=== PATIENT | male | born 1965 | race Caucasian/White ===

== ENCOUNTER 2019-01-27 23:28 | Inpatient (IN) | payer MEDICARE, SELFPAY ==
[2019-01-27 23:29] VITALS: BP 92/56; PULSE 122; RESP 20; TEMP 37.8; O2SAT 95; BMI 14.1
--- NOTE | 2019-01-27 23:38 | XR_ITS ---
XR chest portable HISTORY: ITS.REASON: fever, low o2 ORDERING PHYSICIAN: Aldo Benitez MD PATIENT AGE: 53 years COMPARISON: None available FINDINGS: The lung brown are well expanded. There is a somewhat prominent right hilum is a patchy ill-defined opacity in the right lower lobe suggestive of a pneumonic infiltrate. Without old films for comparison. Hilar mass and/or adenopathy is a possibility with postobstructive pneumonitis. There is minimal blunting of the right costophrenic angle and a small pleural effusion is possible. The right upper lung field and left lung field are clear. Overall cardiac size is normal. IMPRESSION: Suspect right lower lobe pneumonia with prominent right hilum as described and consider follow-up CT scan chest for better evaluation.
[2019-01-27 23:47] LABS: Basophils % 0.3 % (0.1-2.0); Eosinophils # 0.2 K/mm3 (0.0-0.4); Eosinophils % 1.2 % (0.1-12.0); Hematocrit 30.2 % (42.0-52.0); Hemoglobin 10.4 g/dL (14.1-18.0); Lymphocytes # 1.7 K/mm3 (0.7-4.5); Lymphocytes % 13.5 % (10-50); Mean Corpuscular HGB Conc 34.4 g/dL (31.8-35.4); Mean Corpuscular Hemoglobin 32.1 pg (27.0-31.2); Mean Corpuscular Volume 93.4 fl (80-94); Mean Platelet Volume 7.7 fl (7.4-10.4); Monocytes % 8.1 % (1.7-9.3); Neutrophils # 9.7 K/mm3 (1.8-7.8); Neutrophils % 76.9 % (37.0-80.0); Platelet Count 433 K/mm3 (142-424); Red Blood Count 3.23 M/mm3 (4.60-6.20); Red Cell Distribution Width 15.4 % (11.5-17.5); White Blood Count 12.7 K/mm3 (4.8-10.8)
--- NOTE | 2019-01-27 23:48 | PC.NURSE ---
Pt arrived per EMS with 18g IV in his Left hand, 2L oxygen via nasal cannula, he received 1,000ml of NS per EMS, and was given 650 Tylenol at the assisted. Pt has previous anoxic brain injury and can not make his needs known.
[2019-01-28] VITALS (35 sets, daily range): BP systolic 80–110; BP diastolic 42–76; PULSE 88–130; RESP 18–24; TEMP 36–38.5; O2SAT 93–100; BMI 16.2
[2019-01-28 00:03] LABS: Lactic Acid 1.4 mmol/L (0.4-2.0)
[2019-01-28 00:06] LABS: Troponin I < 0.02 ng/ml (0.00-0.06)
[2019-01-28 00:07] LABS: Alanine Aminotransferase 17 U/L (12-78); Albumin Level 2.5 gm/dL (3.4-5.0); Albumin/Globulin Ratio 0.7 (1.1-1.8); Alkaline Phosphatase 84 U/L (46-116); Anion Gap 12.6 mEq/L (5-15); Aspartate Amino Transferase 16 U/L (15-37); Bilirubin,Total 0.4 mg/dL (0.2-1.0); Blood Urea Nitrogen 13 mg/dL (7-18); C-Reactive Protein 8.2 mg/L (0.0-0.9); Calcium 8.2 mg/dL (8.5-10.1); Carbon Dioxide 26 mmol/L (21.0-32.0); Chloride 102 mmol/L (98-107); Creatinine Clearance Estimated 106 mL/min (50-200); Creatinine,Serum 0.56 mg/dL (0.70-1.30); Estimated Glomerular Filt Rate 152 ml/min (>60); GFR (African American) 184 ML/MIN (>60); Globulin 3.7 gm/dl (1.3-3.2); Glucose 125 mg/dL (74-106); Potassium 3.6 mmoL/L (3.5-5.1); Sodium 137 mmol/L (136-145); Total Protein,Serum 6.2 gm/dL (6.4-8.2)
--- NOTE | 2019-01-28 00:13 | PC.NURSE ---
Gtube verified with auscultation and aspiration of gastric contents
[2019-01-28 00:18] LABS: Microscopic, Urine URINE MICROSCOPIC (MICROSCOPIC)
[2019-01-28 00:23] LABS: ABG Base Excess 1.6 mmol/L (-2.4-2.3); ABG HCO3 27.6 mmhg (22.0-26.0); ABG Oxygen Saturation 94 % (90-100); ABG PH 7.33 mmol/L (7.35-7.45); ABG PO2 82.8 mmhg (80-100); ABG TCO2 29.3 mmhg (23-27); Allen's Test Y; Oxygen 2 %; Source R/R
--- NOTE | 2019-01-28 00:23 | HMH.EDFEV ---
ED Disposition Clinical Impression: HCAP (healthcare-associated pneumonia), Severe sepsis, Septic shock, Low body mass index (BMI) Disposition: Admitted As Inpatient Condition on Discharge: Critical Referrals: Shiv Hu MD [Primary Care Provider] - - Critical Care Critical Care Time: Yes Attestation: On 01/27/19, the high probability of a clinically significant, sudden or life threatening deterioration of the following system(s) required my full and direct attention, intervention and personal management. The time I documented below is in addition to time spent performing reported procedures but includes the following listed in this critical care notation. Total Critical Care Time: 90 Vital system(s) involved:: Shock (Septic) My critical care processes included: Assessment & monitoring of V/S, Data Review/Interpretation, Coordinating Care, Medication Orders and management, Documentation Medical Decision Making - Medical Records Medical records reviewed: Yes: I reviewed the patient's medical records. - Gene Inquiry Pt receiving controlled substance: No Vital Signs: 01/27/19 23:29 01/28/19 00:32 01/28/19 01:00 Temperature 100.0 F H Temperature Source Rectal Pulse Rate [Right Brachial] 122 H 120 H 124 H Respiratory Rate 20 24 24 Blood Pressure [Right Arm] 92/56 L 98/55 L 97/55 L Blood Pressure Mean [Right Arm] 68 69 69 Blood Pressure Source [Right Arm] Automatic Cuff Blood Pressure Position [Right Arm] Sitting 02 Sat by Pulse Oximetry 95 93 L 93 L Oxygen Delivery Method Nasal Cannula Nasal Cannula Nasal Cannula Oxygen Flow Rate (LPM) 2 2 2 01/28/19 01:25 01/28/19 01:28 01/28/19 01:58 Temperature 98.1 F Temperature Source Rectal Pulse Rate [Right Brachial] 100 H 105 H 102 H Respiratory Rate 24 20 20 Blood Pressure [Right Arm] 80/46 L 82/43 L 84/55 L Blood Pressure Mean [Right Arm] 57 56 64 Blood Pressure Source [Right Arm] Blood Pressure Position [Right Arm] 02 Sat by Pulse Oximetry 97 95 98 Oxygen Delivery Method Nasal Cannula Nasal Cannula Oxygen Flow Rate (LPM) 2 2 01/28/19 02:27 Temperature Temperature Source Pulse Rate [Right Brachial] 100 H Respiratory Rate 20 Blood Pressure [Right Arm] 86/57 L Blood Pressure Mean [Right Arm] 66 Blood Pressure Source [Right Arm] Blood Pressure Position [Right Arm] 02 Sat by Pulse Oximetry 100 Oxygen Delivery Method Nasal Cannula Oxygen Flow Rate (LPM) 2 - Lab Data Lab results reviewed: Yes: I reviewed the patient's lab results. Lab Results 01/27/19 23:38: WBC 12.7 H, RBC 3.23 L, Hgb 10.4 L, Hct 30.2 L, MCV 93.4, MCH 32.1 H, MCHC 34.4, RDW 15.4, Plt Count 433 H, MPV 7.7, Neut % (Auto) 76.9, Lymph % (Auto) 13.5, Mcleod % (Auto) 8.1, Eos % (Auto) 1.2, Baso % (Auto) 0.3, Neut # (Auto) 9.7 H, Lymph # (Auto) 1.7, Mcleod # (Auto) 1.0, Eos # (Auto) 0.2, Baso # (Auto) 0.0 01/27/19 23:38: Sodium 137, Potassium 3.6, Chloride 102, Carbon Dioxide 26, Anion Gap 12.6, BUN 13, Creatinine 0.56 L, Estimated Creat Clear 106, Estimated GFR 152, Est GFR ( Amer) 184, Glucose 125 H, Calcium 8.2 L, Total Bilirubin 0.4, AST 16, ALT 17, Alkaline Phosphatase 84, Troponin I < 0.02, C-Reactive Protein 8.2 H, Total Protein 6.2 L, Albumin 2.5 L, Globulin 3.7 H, Albumin/Globulin Ratio 0.7 L 01/27/19 23:38: Lactate 1.4 01/27/19 23:38: ESR 48 H 01/28/19 00:09: Urine Color Yellow, Urine Appearance Clear, Urine pH 8.5, Ur Specific [place] 1.010, Urine Protein Negative, Urine Glucose (UA) Negative, Urine Ketones Negative, Urine Blood Negative, Urine Nitrate Negative, Urine Bilirubin Negative, Urine Urobilinogen 0.2, Ur Leukocyte Esterase Negative, Urine WBC 3-5, Amorphous Sediment Trace 01/28/19 00:22: Specimen Source R/r, O2 % 2, ABG pH 7.33 L, ABG pCO2 54.2 H, ABG pO2 82.8, ABG HCO3 27.6 H, ABG Total CO2 29.3 H, ABG O2 Saturation 94, ABG Base Excess 1.6, Syed Test Y Result diagrams: 01/27/19 23:38 01/27/19 23:38 Orders (Tests/Meds): ED MEDICATIONS Gener
[2019-01-28 00:24] LABS: ABG PCO2 54.2 mmhg (35.0-45.0)
[2019-01-28 00:27] LABS: Appearance,Urine CLEAR (Clear); Bilirubin,Urine Negative (Negative); Blood, Urine Negative (Negative); Color,Urine YELLOW (Yellow); Glucose,Urine (UA) Negative (Negative); Ketones,Urine Negative (Negative); Leukocyte Esterase,Urine Negative (Negative); Nitrate,Urine Negative (Negative); PH,Urine 8.5 (5.0-8.5); Protein,Urine Negative (Negative); Urobilinogen,Urine 0.2 EU/dl (0.2)
[2019-01-28 00:32] LABS: Amorphous Sediment,Urine Trace /lpf
[2019-01-28 00:34] LABS: Erythrocyte Sedimentation Rate 48 mm/hr (0-20)
--- NOTE | 2019-01-28 01:29 | PC.NURSE ---
Sepsis bolus started at this time
--- NOTE | 2019-01-28 01:56 | PC.NURSE ---
Addendum entered by Kortney Agarwal RN 01/28/19 02:00: Time of notification to MD at 0128 Original Note: MD notified of pt triggering for sepsis bolus, MD gave verbal order for bolus.
--- NOTE | 2019-01-28 02:30 | PC.NURSE ---
Bolus completed at this time
--- NOTE | 2019-01-28 02:40 | PC.NURSE ---
Addendum entered by Kortney Agarwal RN 01/28/19 02:41: Suggested vasopressors per sepsis protocol. Original Note: M notified of persistent hypotension, on phone with juanjo at this time
--- NOTE | 2019-01-28 02:53 | PC.NURSE ---
stated he did not wish to administered vasopressors to pt
--- NOTE | 2019-01-28 03:38 | PC.NURSE ---
ARRIVED TO FLOOR, PER STRETCHER, FROM ED @[phone]
--- NOTE | 2019-01-28 07:00 | PC.NURSE ---
PT SLEPT MOST OF SHIFT SINCE ADMISSION TO FLOOR. IV SECURE AND PATENT, INFUSING NS@100/HR. NO C/O PAIN OR DISCOMFORT. PT SPEAKS VERY LITTLE, AND IS SOFT SPOKEN. ZAMUDIO CATH SECURE AND PATENT. NPO, PT HAS G-TUBE. NO A.M. LABS TODAY. RESPIRATIONS EVEN AND UNLABORED ON 2L/NC. BREATH SOUNDS DIMINISHED BILATERAL BASES. STABLE. WILL CONTINUE TO MONITOR. REPORT TO BE GIVEN TO ONCOMING NURSE.
--- NOTE | 2019-01-28 07:25 | PC.NURSE ---
REPORTED TO Stewart GREY
--- NOTE | 2019-01-28 08:38 | HMH.HP ---
*Admission Date: 01/28/19 *Chief complaint: Fever and tachycardia *History of present illness: Mr. Fountain is a chronically ill 53-year-old gentleman with weakness, debility, G-tube dependence, seizure disorder who presented to the hospital yesterday from [facility] due to elevated temperature, tachycardia, agitation. At time of assessment in the ER patient was found to have a pneumonia. Heart rate and respiratory rate along with presumed infection and leukocytosis greater than 12,000 met criteria for sepsis. Admitted and initiated on broad-spectrum antibiotics. On interview this morning patient is pleasant but confused about his current location and time. Discussion with nurse at [facility] elicited that the patient was more altered yesterday and agitated giving them concern for possible infection. This led to his transfer. They denied any trauma or falls yesterday however he has been very weak and unsteady with falls since being at the [facility]. Patient is reliant on tube feeds and gets most of his Medications through his G-tube. They do not give him medications by mouth. Denies any chest pain, shortness of breath, nausea vomiting, abdominal pain, diarrhea. Does complain of global weakness [facility] History I have reviewed the patient's past medical history: No (Viewed as best as possible. Patient poor historian.) Medical History: Reports:: BPH, Chronic Obstructive Pulmonary Disease (COPD) *Have you ever received a pneumonia vaccine?: No ([facility], [facility]) *Have you received a flu vaccine this season?: Yes - *Social History Alcohol Intake: never *Occupational Status:: disabled Housing: [facility] *Travel in the last 8 weeks: None - Psychiatric History Expresses thoughts of harming self/others: None Suicide Plan Description: No Plan Family Hx:: Unable to obtain (Patient is a poor historian and cannot recall) Review of Systems - Review of Systems Review of systems:: pertinent systems reviewed and negative unless documented below Meds Home Medications Medication Instructions Recorded Confirmed Type Acetaminophen [Tylenol 500mg 500 mg RC NEEDED PRN 01/28/19 01/28/19 History tablet] Benzonatate [Benzonatate 100mg 100 mg G-TUBE NEEDED PRN 01/28/19 01/28/19 History cap] Bisacodyl [Bisacodyl 10mg Supp] 10 mg RC DAILYP PRN 01/28/19 01/28/19 History Doxazosin Mesylate [Doxazosin 1mg 1 mg G-TUBE DAILY 01/28/19 01/28/19 History Tab] Folic Acid [Folic Acid 1mg tablet] 1 mg G-TUBE DAILY 01/28/19 01/28/19 History Gabapentin [Gabapentin 300mg Cap] 300 mg G-TUBE TID 01/28/19 01/28/19 History Ibuprofen [Ibuprofen 800mg 800 mg G-TUBE Q8HP PRN 01/28/19 01/28/19 History Tablet] Lidocaine 1 each TP NEEDED PRN 01/28/19 01/28/19 History Melatonin/Pyridoxine HCl (B6) 1 each G-TUBE HSP PRN 01/28/19 01/28/19 History [Melatonin 3 mg Tablet] Mirtazapine [Remeron 15mg tablet] 15 mg G-TUBE HS 01/28/19 01/28/19 History Mometasone/Formoterol [Dulera 200 13 gm IH NEEDED PRN 01/28/19 01/28/19 History Mcg/5 Mcg Inhaler] Nicotine [Nicotine Patch] 1 each TD DAILY 01/28/19 01/28/19 History Ondansetron [Zofran 4mg ODT] 4 mg PO NEEDED PRN 01/28/19 01/28/19 History Pyridoxine HCl (Vitamin B6) 50 mg G-TUBE DAILY 01/28/19 01/28/19 History [Pyridoxine HCl] Quetiapine Fumarate 100 mg G-TUBE BID 01/28/19 01/28/19 History Sennosides [Senna] 8.6 mg G-TUBE NEEDED PRN 01/28/19 01/28/19 History Sertraline HCl [Zoloft 100mg 200 mg G-TUBE DAILY 01/28/19 01/28/19 History tablet] Simethicone [Gas Relief] 80 mg G-TUBE NEEDED PRN 01/28/19 01/28/19 History Thiamine HCl 100 mg G-TUBE DAILY 01/28/19 01/28/19 History Tiotropium Herreid [Spiriva 1 puff IH DAILY 01/28/19 01/28/19 History 18mcg/puff inhaler] Valproic Acid (As Sodium Salt) 500 mg G-TUBE BID 01/28/19 01/28/19 History [Valproic Acid] chlordiazePOXIDE HCl [Librium 10mg 10 mg G-TUBE TID 01/28/19 01/28/19 History Capsule] levETIRAcetam [Kepp
--- NOTE | 2019-01-28 10:27 | HMH.PHAINT ---
MED REC-CORRECTED MED LIST FROM CORRECTION NOV.
--- NOTE | 2019-01-28 10:28 | P.CONPHA_ITS ---
[facility] Pharmacy VTE Monitoring - Patient Demographics Admission date: 01/28/19 Report Date: 01/28/19 Time: 10:28 Allergies/Adverse Reactions: Patient Allergies No Known Allergies Allergy (Verified 01/28/19 01:24) Height: 1.88 m Weight: 57.408 kg Patient Problems: Current Active Problems (Updated 01/28/19 @ 02:48 by Aldo Benitez MD) HCAP (healthcare-associated pneumonia) (Acute) Severe sepsis (Acute) Septic shock (Acute) Low body mass index (BMI) (Acute) - VTE Risk Labs: VTE Related Lab Results Hgb 10.4 g/dL (14.1-18.0) L 01/27/19 23:38 Hct 30.2 % (42.0-52.0) L 01/27/19 23:38 Plt Count 433 K/mm3 (142-424) H 01/27/19 23:38 BUN 13 mg/dL (7-18) 01/27/19 23:38 Creatinine 0.56 mg/dL (0.70-1.30) L 01/27/19 23:38 Estimated Creat Clear 106 mL/min (50-200) 01/27/19 23:38 VTE Risk Level: Moderate Risk - Prophylaxis Types of VTE Prophylaxis: TEDS Knee High (KLEVER HOSE ORDER PLACED)
--- NOTE | 2019-01-28 15:21 | PC.NURSE ---
COURTESY ROUND: PATIENT IS NPO, TRASH WAS TAKEN OUT. NO OTHER NEEDS AT THIS TIME
--- NOTE | 2019-01-28 16:03 | PC.NURSE ---
Spoke with Dr Quintanilla and notified him that the pts bp is 80/42 manually. states the run liter of fluids currently infusing as a bolus then with new bag, continue maintenance rate. was also notified that the pt has order for Jevity 1.5, this is unavailable at this time. states that it is ok to bolus/feed Jevity 1.2 velvet until able to speak with cook dessert today/tomorrow.
--- NOTE | 2019-01-28 17:00 | PC.NURSE ---
250ml tube feeding bolus given per directions from Dr Quintanilla and Dank Shah. pt tolerated 250ml Jevity 1.2 well. no issues noted. pt HOB at 30 degrees. will monitor.
--- NOTE | 2019-01-28 17:10 | DIET.NUTRFU ---
Nutritional assessment completed. Will initiate tube feedings with compatable formula Jevity 1.2 bolus 250 ml bid at lunch (1200) and dinner (1700) and continuous drip Jevity 1.2 at 75 ml/hr from 9 pm to 9 am. This will provide approx 1680 calories and 1130 ml free water. Will reassess tomorrow after contacting the snf to reevaluate adequacy as patient may need increased calories to meet his nutritional needs. IV fluid currently at 100 ml/hr and total fluid input should be adequate at approx 3500 ml.
--- NOTE | 2019-01-28 18:07 | PC.NURSE ---
pt was up to the chair in his room per the request from Dr Quintanilla. pt was up for apprx 4 hrs to the chair. lung sounds are much improved from this am assessment. pt has occasionally noted rhonchi. but otherwise has cleared up. bowel sound remain hypo active. pt gtube site appears cdi. pt skin has waxy appears on face noted. pt has had a fever off and on this shift. was treated with IBU with minimal effect. then was treated with tylenol when temp was 101.3. pt temp was lowered to 99.0. pt was also noted to have tachycardia at 125-130 when he had a fever. dr quintanilla was also notified of pt bp being lower. ordered for pt to receive a bolus from the IV fluid bag that was currently infusing. then when that bag finished to just administer another liter of ivf and continue to maintenance rate.
--- NOTE | 2019-01-28 19:24 | PC.NURSE ---
report given to ann persaud rn at 191
--- NOTE | 2019-01-28 21:30 | PC.NURSE ---
G-TUBE PLACEMENT VERIFIED BY AUSCULTATION. ONLY 3ML OF RESIDUAL. MEDS GIVEN PER G-TUBE AND FLUSHED BEHIND WITH WATER. PT'S G-TUBE FEEDINGS JEVITY 1.2 TO RUN FROM 9PM-9AM WITH GOAL 75. FEEDS STARTED AT 50.
[2019-01-29] VITALS: BP 109/67; PULSE 97; RESP 18; TEMP 36.4; O2SAT 97
--- NOTE | 2019-01-29 00:45 | PC.NURSE ---
ONLY 7ML RESIDUAL NOTED. FEEDS INCREASED TO 60/HR.
[2019-01-29 04:00] VITALS: BP 104/71; PULSE 110; RESP 18; TEMP 36.6; O2SAT 95
--- NOTE | 2019-01-29 04:21 | PC.NURSE ---
NO RESIDUAL NOTED. FEEDS INCREASED TO GOAL OF 75ML/HR.
[2019-01-29 04:45] VITALS: BMI 16.3
--- NOTE | 2019-01-29 04:53 | PC.NURSE ---
PT SLEPT INTERVALS TONIGHT. HAS INTERMITTENT DRY, HACKY COUGH, NON-PRODUCTIVE. PT HAS ORDER FOR A.M. LABS. BOTH IV'S SECURE AND PATENT. CONTINUES ON NS@ 100/HR WELL IV ABX. PT ALERT. WHEN I ASKED HIM, HE TOLD ME HIS NAME, BIRTHDAY AND WHERE HE IS, BUT DIDN'T KNOW YEAR OR SITUATION. RESPIRATIONS EVEN AND UNLABORED. BREATH SOUNDS SCATTERED INSPIRATORY AND EXPIRATORY RHONCHI AND BILATERAL BASES DIMINISHED. PT HAS I/S ON BEDSIDE TABLE AND HAS USED ON OCCASION TONIGHT. NO C/O PAIN OR DISCOMFORT. ZAMUDIO SECURE AND PATENT. TUBE FEEDS OF JEVITY 1.2 CURRENTLY AT GOAL AMOUNT OF 75ML/HR WHICH IS SAME ASSISTED. TOLERATING WELL. PT STABLE. WILL CONTINUE TO MONITOR. REPORT TO BE GIVEN TO ONCOMING NURSE.
[2019-01-29 06:53] LABS: Basophils % 0.1 % (0.1-2.0); Eosinophils # 0.2 K/mm3 (0.0-0.4); Eosinophils % 1.8 % (0.1-12.0); Hematocrit 28.3 % (42.0-52.0); Hemoglobin 9.6 g/dL (14.1-18.0); Lymphocytes # 1.6 K/mm3 (0.7-4.5); Lymphocytes % 15.4 % (10-50); Mean Corpuscular HGB Conc 33.9 g/dL (31.8-35.4); Mean Corpuscular Hemoglobin 32.3 pg (27.0-31.2); Mean Corpuscular Volume 95.3 fl (80-94); Mean Platelet Volume 9.1 fl (7.4-10.4); Monocytes # 0.8 K/mm3 (0.1-1.0); Neutrophils # 7.6 K/mm3 (1.8-7.8); Neutrophils % 74.7 % (37.0-80.0); Platelet Count 401 K/mm3 (142-424); Red Blood Count 2.97 M/mm3 (4.60-6.20); Red Cell Distribution Width 15.3 % (11.5-17.5); White Blood Count 10.2 K/mm3 (4.8-10.8)
[2019-01-29 07:09] LABS: Alanine Aminotransferase 13 U/L (12-78); Albumin Level 1.8 gm/dL (3.4-5.0); Albumin/Globulin Ratio 0.6 (1.1-1.8); Alkaline Phosphatase 60 U/L (46-116); Anion Gap 11.1 mEq/L (5-15); Aspartate Amino Transferase 11 U/L (15-37); Bilirubin,Total 0.3 mg/dL (0.2-1.0); Blood Urea Nitrogen 5 mg/dL (7-18); Calcium 7.5 mg/dL (8.5-10.1); Carbon Dioxide 25 mmol/L (21.0-32.0); Chloride 113 mmol/L (98-107); Creatinine Clearance Estimated 164 mL/min (50-200); Creatinine,Serum 0.42 mg/dL (0.70-1.30); Estimated Glomerular Filt Rate 212 ml/min (>60); GFR (African American) 256 ML/MIN (>60); Globulin 3.2 gm/dl (1.3-3.2); Glucose 88 mg/dL (74-106); Magnesium 1.6 mg/dL (1.4-2.2); Phosphorous 2.5 mg/dL (2.4-4.9); Potassium 3.1 mmoL/L (3.5-5.1); Sodium 146 mmol/L (136-145)
--- NOTE | 2019-01-29 07:21 | PC.NURSE ---
REPORT GIVEN TO Le PINEDA
[2019-01-29 07:43] VITALS: BP 126/81; PULSE 114; RESP 15; TEMP 37; O2SAT 98
--- NOTE | 2019-01-29 07:47 | HMH.DCSUM ---
General - General Admission date:: 01/28/19 Discharge date: 01/29/19 HPI HPI: Mr. Fountain is a chronically ill 53-year-old gentleman with weakness, debility, G-tube dependence, seizure disorder who presented to the hospital yesterday from [facility] due to elevated temperature, tachycardia, agitation. At time of assessment in the ER patient was found to have a pneumonia. Heart rate and respiratory rate along with presumed infection and leukocytosis greater than 12,000 met criteria for sepsis. Admitted and initiated on broad-spectrum antibiotics. On interview this morning patient is pleasant but confused about his current location and time. Discussion with nurse at senior living elicited that the patient was more altered yesterday and agitated giving them concern for possible infection. This led to his transfer. They denied any trauma or falls yesterday however he has been very weak and unsteady with falls since being at the senior living. Patient is reliant on tube feeds and gets most of his Medications through his G-tube. They do not give him medications by mouth. Denies any chest pain, shortness of breath, nausea vomiting, abdominal pain, diarrhea. Does complain of global weakness Hospital Course Hospital Course: Admitted for pneumonia and sepsis. Initiated on broad-spectrum antibiotics including clindamycin, Zosyn, Levaquin. Symptoms defervesced. Did not require oxygen during admission. Resumed home medication regimen. Tolerated tube feeds. Due to clinical resolution of symptoms and stabilization of vitals, patient medically stable for discharge back to senior living. Transitioned to Levaquin once a day for completion of antibiotic course. Medically stable for discharge back to senior living. Denies chest pain, shortness of breath, abdominal pain. Globally weak at baseline. Objective Vital signs: Temp Pulse Resp BP Pulse Ox 98.6 F 114 H 15 126/81 98 01/29/19 07:43 01/29/19 07:43 01/29/19 07:43 01/29/19 07:43 01/29/19 07:43 Narrative: Cachectic male of stated age. Poor dentition, moist mucous membranes. Nasal cannula in place. Pale with good cap refill Anterior lung brown clear, posterior lung brown with intervally improved crackles in the base Abdomen soft, nontender, G-tube site clean and intact with no erythema Extremities weak with muscle wasting, moves extremities but strength 4/5 globally Oriented to person but not place and time Pupils equal round reactive Pulses 2+ peripherally, no edema Results Labs on day of discharge: Labs from last 24 hours 01/29/19 01/29/19 06:26 05:26 WBC 10.2 RBC 2.97 L Hgb 9.6 L Hct 28.3 L MCV 95.3 H MCH 32.3 H MCHC 33.9 RDW 15.3 Plt Count 401 MPV 9.1 Neut % (Auto) 74.7 Lymph % (Auto) 15.4 Cross % (Auto) 8.0 Eos % (Auto) 1.8 Baso % (Auto) 0.1 Neut # (Auto) 7.6 Lymph # (Auto) 1.6 Cross # (Auto) 0.8 Eos # (Auto) 0.2 Baso # (Auto) 0.0 Sodium 146 H Potassium 3.1 L Chloride 113 H Carbon Dioxide 25 Anion Gap 11.1 BUN 5 L D Creatinine 0.42 L D Estimated Creat Clear 164 Estimated GFR 212 Est GFR ( Amer) 256 D Glucose 88 Calcium 7.5 L Phosphorus 2.5 Magnesium 1.6 Total Bilirubin 0.3 AST 11 L D ALT 13 Alkaline Phosphatase 60 Total Protein 5.0 L Albumin 1.8 L D Globulin 3.2 Albumin/Globulin Ratio 0.6 L DS: Diagnosis - Discharge Diagnosis (1) HCAP (healthcare-associated pneumonia) Status: Acute (2) Severe sepsis Status: Resolved (3) Low body mass index (BMI) Status: Chronic (4) Seizure disorder Status: Chronic Discharge Plan - Patient Discharge Instructions Patient Instructions: DI for Sepsis -- Adult - Follow up Plan Disposition: Xfer Intermediate Care Fac Home Medications: Home Medications Medication Instructions Recorded Confirmed Type Acetaminophen [Tylenol 500mg 500
[2019-01-29 08:00] VITALS: RESP 18
--- NOTE | 2019-01-29 11:32 | PC.NURSE ---
report called to [facility] - [place]. mariana
[2019-01-29 11:48] VITALS: BP 142/91; PULSE 117; RESP 17; TEMP 36.6; O2SAT 96
--- NOTE | 2019-01-29 11:55 | PC.NURSE ---
roe discontinued, patient tolerated without incident
[2019-01-31 08:34] LABS: Levetiracetam (Keppra) 41.1 ug/mL (10.0-40.0)
== END 2019-01-29 11:55 | DRG 871 ==
LOC: ER 01-28 02:48 → 2ND 01-28 03:42
PROVIDERS: Admitting Provider Internal Medicine Adolescent Medicine; Emergency Provider Emergency Medicine; PCP Internal Medicine Adolescent Medicine; Visit Provider Internal Medicine Adolescent Medicine
DX: J18.9 Pneumonia, unspecified organism (principal); A41.9 Sepsis, unspecified organism; R64 Cachexia; Z68.1 Body mass index [BMI] 19.9 or less, adult; R65.20 Severe sepsis without septic shock; J44.9 Chronic obstructive pulmonary disease, unspecified; G40.909 Epilepsy, unspecified, not intractable, without status epilepticus; Z93.1 Gastrostomy status; Z91.81 History of falling
CPT/HCPCS: 71045; 80053; 80177; 81001; 82803; 83605; 83735; 84100; 84484; 85025; 85651; 86140; 87040; 93005; 96365; 96366; 96367; 99285; J1956; J2543

== ENCOUNTER → 2019-02-19 12:50 | Outpatient (CLI) | payer MEDICARE, SELFPAY ==
--- NOTE | 2019-02-19 12:57 | FL_ITS ---
FL barium swallow modified: 02/19/2019 12:57 PM CLINICAL HISTORY: Dysphagia ORDERING PHYSICIAN: Shiv Hu MD PATIENT AGE: 53 years Comparison: None TECHNIQUE: Patient administered varying consistencies of barium contrast, while viewed in lateral position under real-time fluoroscopy with cine recording. FLUOROSCOPY TIME: 1 minute and 56 seconds The study was performed in conjunction with speech pathologist. Please see that report & recommendations. FINDINGS: Patient was given varying consistencies of barium. The video portion of the exam did not record and is not available for review. PA lateral views of the chest the lateral view of the neck was obtained as it was reported that the patient aspirated during the exam. Barium however is not visible in the airway. There are multiple old left rib fractures and right lower lobe atelectasis or infiltrate. IMPRESSION: Incomplete study with video not available for review
--- NOTE | 2019-02-19 14:21 | HMH.SLMBS2 ---
Speech & Language Evaluation Speech/Language Mod Barium Swallow Start: 02/19/19 13:59 Freq: once Status: Complete Protocol: Document 02/19/19 13:59 TUCKER (Rec: 02/19/19 14:05 TUCKER [id number]) [facility] Recommendations Diet Dietary Recommendations NPO Mod Barium Swallow Impressions Summary and Impressions Oral Phase Impression Severe Impairment Oral Phase Summary Mr. Fountain was given the following consistencies: thins via spoon and straw, nectar via straw, pudding, and pureed . Oral stage it was noted that Mr. Fountain had poor dentition which affects his ability to effectively chew foods. Mr. Fountain held food anteriorly for 5 seconds before beginning posterior movement of tongue to begin swallow. Pharyngeal Phase Impression Severe Impairment Pharyngeal Phase Summary Delayed swallow reflex noted with all consistencies of up to 6 seconds (pudding) resulting in aspiration of thins. Decreased laryngeal elevation, vallecular residue, and pharyngeal residue noted during evaluation. Mr. Fountain had large amounts of residue in valleculae and on posterior pharyngeal wall that could not be cleared with subsequent dry swallows. He is at high aspiration risk with all consistencies. Speech/Language MBS Assessment/Goals/Plan Assessment Date of Evaluation: 02/19/19 Evaluation Type Initial Certification Assessment/Problems Dysphagia Does Patient Qualify for Service No Qualify/Failure Comment Patient will need to be followed up with at SNF by MULTIPLE TUBE WINDING MACHINE OPERATOR to determine appropriateness of therapy. Recommendations PHYSICIAN CERTIFICATION: The specified therapy services are required, authorized, and reviewed every 30 days. SL Swallow Guidelines High aspiration risk Plan Pt/Guardian verbally ack understanding Yes: POA understood of dx/prognosis/goals G -code Required Yes G-CODES ST Current Status [id number] ST Current Status Modifier CN-At least 100% impaired, limited or restricted ST Go
== END ==
PROVIDERS: PCP Internal Medicine Adolescent Medicine; Visit Provider Internal Medicine Adolescent Medicine
DX: R13.10 Dysphagia, unspecified (principal); G93.40 Encephalopathy, unspecified
CPT/HCPCS: 70371; 92611

== ENCOUNTER 2019-03-08 09:06 | Inpatient (IN) ==
--- NOTE | 2019-03-08 09:16 | Emergency Department Note ---
ED Disposition Clinical Impression: Healthcare-associated pneumonia Sepsis Qualifiers: Sepsis type: sepsis due to unspecified organism Qualified Code(s): A41.9 - Sepsis, unspecified organism Disposition: Admitted As Inpatient Condition on Discharge: Fair Referrals: Shiv Hu MD [Primary Care Provider] - - Critical Care Critical Care Time: No Attestation: On , the high probability of a clinically significant, sudden or life threatening deterioration of the following system(s) required my full and direct attention, intervention and personal management. The time I documented below is in addition to time spent performing reported procedures but includes the following listed in this critical care notation. Medical Decision Making - Gene Inquiry Pt receiving controlled substance: No Vital Signs: 03/08/19 09:07 03/08/19 09:35 03/08/19 09:56 Temperature 102.5 F H Temperature Source Rectal Pulse Rate [Left Radial] 140 H 136 H 135 H Respiratory Rate 26 H 18 Blood Pressure [Right Arm] 145/90 H 145/84 H 142/77 H Blood Pressure Mean [Right Arm] 108 104 98 Blood Pressure Source [Right Arm] Automatic Cuff Automatic Cuff Automatic Cuff Blood Pressure Position [Right Arm] Sitting Sitting Sitting 02 Sat by Pulse Oximetry 91 L 98 Oxygen Delivery Method Room Air Nasal Cannula Oxygen Flow Rate (LPM) 2 03/08/19 09:57 03/08/19 10:07 03/08/19 10:30 Temperature Temperature Source Rectal Pulse Rate [Left Radial] 132 H 132 H Respiratory Rate 18 18 Blood Pressure [Right Arm] 142/80 H 142/79 H Blood Pressure Mean [Right Arm] 100 100 Blood Pressure Source [Right Arm] Automatic Cuff Automatic Cuff Blood Pressure Position [Right Arm] Supine Sitting 02 Sat by Pulse Oximetry 91 L 97 Oxygen Delivery Method Nasal Cannula Nasal Cannula Oxygen Flow Rate (LPM) 2 2 03/08/19 11:00 03/08/19 11:30 03/08/19 12:30 Temperature Temperature Source Pulse Rate [Left Radial] 131 H 129 H 127 H Respiratory Rate 20 18 20 Blood Pressure [Right Arm] 141/78 H 147/84 H 145/78 H Blood Pressure Mean [Right Arm] 99 105 100 Blood Pressure Source [Right Arm] Automatic Cuff Automatic Cuff Automatic Cuff Blood Pressure Position [Right Arm] Sitting Sitting Sitting 02 Sat by Pulse Oximetry 95 97 95 Oxygen Delivery Method Nasal Cannula Nasal Cannula Nasal Cannula Oxygen Flow Rate (LPM) 2 2 2 03/08/19 13:00 03/08/19 13:06 03/08/19 13:23 Temperature 98.9 F Temperature Source Oral Pulse Rate [Left Radial] 124 H 125 H Respiratory Rate 20 19 Blood Pressure [Right Arm] 118/75 131/74 Blood Pressure Mean [Right Arm] 89 93 Blood Pressure Source [Right Arm] Automatic Cuff Blood Pressure Position [Right Arm] Sitting 02 Sat by Pulse Oximetry 92 L 95 Oxygen Delivery Method Nasal Cannula Room Air Oxygen Flow Rate (LPM) 2 03/08/19 14:00 03/08/19 14:51 Temperature 97.6 F Temperature Source Oral Pulse Rate [Left Radial] 121 H 123 H Respiratory Rate 22 19 Blood Pressure [Right Arm] 128/77 128/75 Blood Pressure Mean [Right Arm] 94 92 Blood Pressure Source [Right Arm] Automatic Cuff Automatic Cuff Blood Pressure Position [Right Arm] Supine Sitting 02 Sat by Pulse Oximetry 93 L 97 Oxygen Delivery Method Nasal Cannula Nasal Cannula Oxygen Flow Rate (LPM) 2 - Lab Data Lab Results 03/08/19 09:15: WBC 22.1 H*, RBC 4.59 L, Hgb 14.1, Hct 46.6, MCV 101.6 H, MCH 30.7, MCHC 30.2 L, RDW 15.2, Plt Count 856 H, MPV 7.8, Neut % (Auto) 90.6 H, Lymph % (Auto) 4.4 L, [place] % (Auto) 4.1, Eos % (Auto) 0.6, Baso % (Auto) 0.3, Neut # (Auto) 20.0 H, Lymph # (Auto) 1.0, [place] # (Auto) 0.9, Eos # (Auto) 0.1, Baso # (Auto) 0.1, Total Counted 100, Neutrophils % (Manual) 88 H, Band Neutrophils % 4.0, Lymphocytes % (Manual) 4 L, Monocytes % (Manual) 4, Platelet Estimate Marked increase 03/08/19 09:15: Sodium 148 H, Potassium 3.8, Chloride 107, Carbon Dioxide 34 H, Anion Gap 10.8, BUN 28 H, Creatinine 0.59 L, Estimated Creat Clear 119, Estimated GFR 143, Est GFR ( Amer) 173, Glucose 138 H, Calcium 9.9, Total Bilirubin 0.5, AST 17, ALT 23, Alkaline Phosphatase 128 H, Total Protein 8.5 H D , Albumin 3.4, Globulin 5.1 H, Albumin/Globulin Ratio 0.7 L 03/08/19 09:15: Lactate 1.9 03/08/19 09:15: Lipase 79 03/08/19 09:25: Urine Color Yellow, Urine Appearance Cloudy, Urine pH 8.0, Ur Specific [place] 1.010, Urine Protein Negative, Urine Glucose (UA) Negative, Urine Ketones Negative, Urine Blood Negative, Urine Nitrate Negative, Urine Bilirubin Negative, Urine Urobilinogen 0.2, Ur Leukocyte Esterase Negative, Urine RBC None, Urine WBC None, Ur Squamous Epith Cells 3-5, Amorphous Sediment 2+, Urine Bacteria Trace Result diagrams: 03/08/19 09:15 03/08/19 09:15 Orders (Tests/Meds): ED MEDICATIONS Generic Name Dose Route Start Last Admin Trade Name Freq PRN Reason Stop Dose Admin Clindamycin Phosphate 900 mg/ 106 mls @ 100 mls/hr 03/08/19 15:00 Sodium Chloride IV 03/22/19 14:59 Q8H PARDEEP Protocol Levofloxacin/Dextrose 750 mg in 150 mls @ 100 mls/hr 03/08/19 15:00 Levofloxacin 750mg/150ml Premix IV 03/22/19 14:59 Q24H PARDEEP Protocol Piperacillin Sod/Tazobactam 50 mls @ 100 mls/hr 03/08/19 15:00 Sod 3.375 gm/ Sodium Chloride IV 03/22/19 14:59 Q6H PARDEEP Protocol Discontinued Medications Generic Name Dose Route Start Last Admin Trade Name Freq PRN Reason Stop Dose Admin Acetaminophen 650 mg 03/08/19 09:18 03/08/19 09:30 Acetaminophen 650mg Suppository RC 03/08/19 09:19 650 mg ONCE ONE Administration Sodium Chloride 1,750 ml 03/08/19 09:23 03/08/19 09:30 Sod Chlor 0.9% 1000ml Bag IV 03/08/19 09:24 1,750 ml BOLUS ONE Administration ORDERS Category Date Time Status Blood Culture Stat Micro 03/08/19 09:15 Received - CT Data CT Scan: Abdomen, Pelvis, Chest Time Received: 14:[address] Reviewed: Yes: I have viewed the radiologist's interpretation Findings Narrative: Chest: IMPRESSION: COPD with centrilobular and paraseptal emphysema with diffuse bronchial thickening. Consolidation is present in both lower lobes right more extensive than left bilateral pneumonia. There are also scattered ill-defined pulmonary nodular opacities which could be secondary to inflammatory or infectious process or even neoplasm. Follow-up suggested to confirm resolution. There is some mild mediastinal adenopathy also noted. Dictated By: Syed Ch MD 03/08/19 1418 Abdomen/Pelvis: IMPRESSION: 1. [place] catheter present with mild diffuse thickening of the urinary bladder wall which could be due to cystitis 2. PEG catheter in good position. 3. Avascular necrosis of the left femoral head Dictated By: Syed Ch MD 03/08/19 1431 - ECG Data Tracing #1 EKG interpreted by Magdi Cohen MD: Rhythm: sinus tachycardia Rate: 138 Earp: normal Ectopy: none Conduction: normal ST Segment Changes: none T Wave Changes: none Q Waves: Anterior septal, lateral Poor R wave progression - Physician Consults Physician Consulted: Eli Hu Time: 14:59 Reason -: Admission Comment/Response: Agrees to admit the patient to the hospital. We discussed the patient's clinical information, including history, exam, laboratory and radiology results and ED course. Per hospital procedure, I will write temporary bridge inpatient orders on the patient. Specific orders requested by the admitting physician: Continue antibiotics and IV fluids General Adult HPI - General Chief complaint: Shortness of Breath/Dyspnea Stated complaint: sob Time Seen by Provider: 03/08/19 09:14 - History of Present Illness HPI narrative: Brought in by ambulance from [facility]. Low pulse oximetry 79% on room air noted today, contractures that just developed today. The patient denies any complaints. Says he feels fine. Denies pain. Denies shortness of breath. Denies nausea. Noted to be febrile here, denies feeling hot. Noted to have recent admission here in January for sepsis and healthcare associated pneumonia. Treated with Zosyn, clindamycin, Levaquin. - Related Data Home Medications Medication Instructions Recorded Confirmed Acetaminophen [Tylenol 500mg 500 mg RC NEEDED PRN 01/28/19 03/08/19 tablet] Benzonatate [Benzonatate 100mg 100 mg G-TUBE NEEDED PRN 01/28/19 03/08/19 cap] Bisacodyl [Bisacodyl 10mg Supp] 10 mg RC DAILYP PRN 01/28/19 03/08/19 Doxazosin Mesylate [Doxazosin 1mg 1 mg G-TUBE DAILY 01/28/19 03/08/19 Tab] Folic Acid [Folic Acid 1mg tablet] 1 mg G-TUBE DAILY 01/28/19 03/08/19 Gabapentin [Gabapentin 300mg Cap] 300 mg G-TUBE TID 01/28/19 03/08/19 Ibuprofen [Ibuprofen 800mg 800 mg G-TUBE Q8HP PRN 01/28/19 03/08/19 Tablet] Melatonin/Pyridoxine HCl (B6) 1 each G-TUBE HSP PRN 01/28/19 03/08/19 [Melatonin 3 mg Tablet] Mirtazapine [Remeron 15mg tablet] 15 mg G-TUBE HS 01/28/19 03/08/19 Mometasone/Formoterol [Dulera 200 13 gm IH NEEDED PRN 01/28/19 03/08/19 Mcg/5 Mcg Inhaler] Ondansetron [Zofran 4mg ODT] 4 mg PO NEEDED PRN 01/28/19 03/08/19 Pyridoxine HCl (Vitamin B6) 50 mg G-TUBE DAILY 01/28/19 03/08/19 [Pyridoxine HCl] Quetiapine Fumarate 100 mg G-TUBE BID 01/28/19 03/08/19 Sennosides [Senna] 8.6 mg G-TUBE NEEDED PRN 01/28/19 03/08/19 Sertraline HCl [Zoloft 100mg 200 mg G-TUBE DAILY 01/28/19 03/08/19 tablet] Simethicone [Gas Relief] 80 mg G-TUBE NEEDED PRN 01/28/19 03/08/19 Thiamine HCl 100 mg G-TUBE DAILY 01/28/19 03/08/19 Tiotropium [place] [Spiriva 1 puff IH DAILY 01/28/19 03/08/19 18mcg/puff inhaler] Valproic Acid (As Sodium Salt) 500 mg G-TUBE BID 01/28/19 03/08/19 [Valproic Acid] chlordiazePOXIDE HCl [Librium 10mg 10 mg G-TUBE TID 01/28/19 03/08/19 Capsule] levETIRAcetam [Keppra] 750 mg G-TUBE BID 01/28/19 03/08/19 Previous Rx's Medication Instructions Recorded Acetaminophen [Tylenol elixir 650 mg PO Q4HP PRN udc 01/29/19 325mg/10.15mL UDC] Allergies Allergy/AdvReac Type Severity Reaction Status Date / Time No Known Allergies Allergy Verified 01/28/19 01:24 [facility] History - Hepatitis A Screen Attestation statement:: This patient has been screened for Hepatitis A risk factors. Medical History: Reports:: BPH, Chronic Obstructive Pulmonary Disease (COPD) - Social History Alcohol Intake: never Occupational Status: disabled Housing: halfway Family Hx:: Unable to obtain (Patient is a poor historian and cannot recall) ROS Obtained: Yes All systems reviewed & no additional complaints - Constitutional Constitutional: Denies chills, Reports fever(s) - Cardiovascular Cardiovascular: Denies chest pain - Respiratory Respiratory: No cough, No dyspnea - Gastrointestinal Gastrointestingal: Denies: abdominal pain, diarrhea, vomiting - Neurologic Neurologic: Denies headache(s) Physical Exam - General General appearance: alert, in no apparent distress Comment: Debilitated, G-tube - Head Head exam: atraumatic, normocephalic - Eye Eye exam: Present: normal appearance, EOMI - ENT ENT exam: Present: mucous membranes moist - Neck Neck exam: Present: normal inspection, trachea midline - Chest Chest inspection: Present: normal inspection, symmetric chest wall rise - Respiratory Respiratory exam: Present: normal lung sounds bilaterally. Absent: respiratory distress - Cardiovascular Cardiovascular exam: Present: normal rhythm, tachycardia, normal heart sounds - Abdominal Exam Abdominal exam: Present: guarding Comment: G-tube present. Abdomen is firm. Guarding with palpation. When asked it it hurts to push on abdomen, does not answer. - Extremities Exam Extremities exam: Present: normal inspection - Neurological Exam Neurological exam: Present: alert - Psychiatric Psychiatric exam: Present: normal affect, normal mood - Skin Skin exam: Present: warm, dry, other (No signs of cellulitis seen)
[2019-03-08 09:30] LABS: Basophils # 0.1 K/mm3 (0-0.2); Basophils % 0.3 % (0.1-2.0); Eosinophils # 0.1 K/mm3 (0.0-0.4); Eosinophils % 0.6 % (0.1-12.0); Hematocrit 46.6 % (42.0-52.0); Hemoglobin 14.1 g/dL (14.1-18.0); Lymphocytes % 4.4 % (10-50); Mean Corpuscular HGB Conc 30.2 g/dL (31.8-35.4); Mean Corpuscular Volume 101.6 fl (80-94); Mean Platelet Volume 7.8 fl (7.4-10.4); Monocytes # 0.9 K/mm3 (0.1-1.0); Monocytes % 4.1 % (1.7-9.3); Neutrophils % 90.6 % (37.0-80.0); Platelet Count 856 K/mm3 (142-424); Red Blood Count 4.59 M/mm3 (4.60-6.20); Red Cell Distribution Width 15.2 % (11.5-17.5); White Blood Count 22.1 K/mm3 (4.8-10.8)
[2019-03-08 09:34] LABS: Microscopic, Urine URINE MICROSCOPIC (MICROSCOPIC)
[2019-03-08 09:37] LABS: Appearance,Urine CLOUDY (Clear); Bilirubin,Urine Negative (Negative); Blood, Urine Negative (Negative); Color,Urine YELLOW (Yellow); Glucose,Urine (UA) Negative (Negative); Ketones,Urine Negative (Negative); Leukocyte Esterase,Urine Negative (Negative); Protein,Urine Negative (Negative); Urobilinogen,Urine 0.2 EU/dl (0.2)
[2019-03-08 09:40] LABS: Amorphous Sediment,Urine 2+ /lpf; Bacteria,Urine Trace /lpf
[2019-03-08 09:42] LABS: Albumin Level 3.4 gm/dL (3.4-5.0); Albumin/Globulin Ratio 0.7 (1.1-1.8); Anion Gap 10.8 mEq/L (5-15); Bilirubin,Total 0.5 mg/dL (0.2-1.0); Calcium 9.9 mg/dL (8.5-10.1); Globulin 5.1 gm/dl (1.3-3.2); Total Protein,Serum 8.5 gm/dL (6.4-8.2)
[2019-03-08 09:56] LABS: Lymphocytes % 4 % (10-50); Monocytes % 4 % (2-9); Neutrophils % 88 % (42-76); Total Cells Counted 100
--- NOTE | 2019-03-09 07:31 | Pharmacy Consult Notes ---
[facility] Pharmacy VTE Monitoring - Patient Demographics Admission date: 03/08/19 Report Date: 03/09/19 Time: 07:31 Allergies/Adverse Reactions: Patient Allergies No Known Allergies Allergy (Verified 01/28/19 01:24) Height: 1.85 m Weight: 55.593 kg Patient Problems: Current Active Problems (Updated 03/08/19 @ 14:54 by Magdi Cohen MD) HCAP (healthcare-associated pneumonia) (Acute) Sepsis (Acute) - VTE Risk Labs: VTE Related Lab Results Hgb 14.1 g/dL (14.1-18.0) 03/08/19 09:15 Hct 46.6 % (42.0-52.0) 03/08/19 09:15 Plt Count 856 K/mm3 (142-424) H 03/08/19 09:15 BUN 28 mg/dL (7-18) H 03/08/19 09:15 Creatinine 0.59 mg/dL (0.70-1.30) L 03/08/19 09:15 Estimated Creat Clear 119 mL/min (50-200) 03/08/19 09:15 Was VTE Risk Assessment Performed: Yes VTE Score: 6 VTE Risk Level: Moderate Risk - Prophylaxis VTE Prophylaxis Ordered?: Yes Types of VTE Prophylaxis: TEDS Knee High Location of Applied Device: Bilateral Lower Extremeties - VTE Diagnosis Confirmed Treatment or plan recommended: Continue Current Treatment
--- NOTE | 2019-03-09 09:51 | History & Physical Report ---
*Admission Date: 03/08/19 *Chief complaint: fever, soa *History of present illness: Mr. Fountain is a chronically ill 53-year-old gentleman with weakness, debility, G-tube dependence, and seizure disorder who presented to the ER l yesterday from [facility] due to elevated temperature, tachycardia, agitation, and worsening cough. Of note he reportedly had low pulse ox of 79% on room air at the shelter. They also stated his contractures became more prominent prior to transfer. At time of assessment in the ER patient was found to have a pneumonia. Heart rate and respiratory rate along with presumed infection and leukocytosis 22k met criteria for sepsis. Admitted and initiated on broad-spectrum antibiotics. On interview this morning patient is pleasant, limited history obtained from the patient. but confused about his current location and time. Discussion with nurse at shelter elicited that the patient was more altered yesterday and agitated giving them concern for possible infection. This led to his transfer. They denied any trauma or falls yesterday however he has been very weak and unsteady with falls since being at the shelter. Patient is reliant on tube feeds and gets most of his Medications through his G-tube. They do not give him medications by mouth. The patient denies any complaints. Says he feels fine. Denies pain. Denies shortness of breath. Denies nausea. Noted to be febrile here, denies feeling hot. Noted to have recent admission here in January for sepsis and healthcare associated pneumonia. Treated with Zosyn, clindamycin, Levaquin. Symptoms improved with discharge back to shelter after 3 days of hospitalization [facility] History I have reviewed the patient's past medical history: Yes (poor historian, most review from past records.) Medical History: Reports:: BPH, Chronic Obstructive Pulmonary Disease (COPD) *Have you ever received a pneumonia vaccine?: Yes *Have you received a flu vaccine this season?: Yes - *Social History Alcohol Intake: former *Occupational Status:: disabled Housing: shelter Household Members: other *Travel in the last 8 weeks: None Family Hx:: Unable to obtain (Patient is a poor historian and cannot recall) Review of Systems - Review of Systems Review of systems:: pertinent systems reviewed and negative unless documented below - *Neurologic Denies headache(s) Meds Home Medications Medication Instructions Recorded Confirmed Type Acetaminophen [Tylenol 500mg 500 mg RC NEEDED PRN 01/28/19 03/08/19 History tablet] Benzonatate [Benzonatate 100mg 100 mg G-TUBE TIDP PRN 01/28/19 03/09/19 History cap] Bisacodyl [Bisacodyl 10mg Supp] 10 mg RC DAILYP PRN 01/28/19 03/08/19 History Doxazosin Mesylate [Doxazosin 1mg 1 mg G-TUBE DAILY 01/28/19 03/08/19 History Tab] Folic Acid [Folic Acid 1mg tablet] 1 mg G-TUBE DAILY 01/28/19 03/08/19 History Gabapentin [Gabapentin 300mg Cap] 300 mg G-TUBE TID 01/28/19 03/08/19 History Ibuprofen [Ibuprofen 800mg 800 mg G-TUBE BID 01/28/19 03/09/19 History Tablet] Melatonin/Pyridoxine HCl (B6) 1 each G-TUBE HSP PRN 01/28/19 03/08/19 History [Melatonin 3 mg Tablet] Mirtazapine [Remeron 15mg tablet] 15 mg G-TUBE HS 01/28/19 03/08/19 History Mometasone/Formoterol [Dulera 200 2 puffs IH BID 01/28/19 03/09/19 History Mcg/5 Mcg Inhaler] Ondansetron [Zofran 4mg ODT] 4 mg PO Q6HP PRN 01/28/19 03/09/19 History Pyridoxine HCl (Vitamin B6) 50 mg G-TUBE DAILY 01/28/19 03/08/19 History [Pyridoxine HCl] Quetiapine Fumarate 100 mg G-TUBE BID 01/28/19 03/08/19 History Sennosides [Senna] 8.6 mg G-TUBE DAILY 01/28/19 03/09/19 History Sertraline HCl [Zoloft 100mg 200 mg G-TUBE DAILY 01/28/19 03/08/19 History tablet] Simethicone [Gas Relief] 80 mg G-TUBE Q4HP PRN 01/28/19 03/09/19 History Thiamine HCl 100 mg G-TUBE DAILY 01/28/19 03/08/19 History Tiotropium [place] [Spiriva 2 puff IH DAILY 01/28/19 03/09/19 History 18mcg/puff inhaler] Valproic Acid (As Sodium Salt) 500 mg G-TUBE BID 01/28/19 03/08/19 History [Valproic Acid] chlordiazePOXIDE HCl [Librium 10mg 10 mg G-TUBE TID 01/28/19 03/08/19 History Capsule] levETIRAcetam [Keppra] 750 mg G-TUBE BID 01/28/19 03/08/19 History Acetaminophen [Tylenol elixir 650 mg PO Q4HP PRN udc 01/29/19 03/08/19 Rx 325mg/10.15mL UDC] Furosemide [Lasix 20mg tab] 20 mg G-TUBE DAILY 03/08/19 03/08/19 History Hydrocodone/Acetaminophen [[place] 1 each G-TUBE Q4HP PRN 03/08/19 03/09/19 History 5-325 Tablet] Ipratropium/Albuterol Sulfate 3 ml IH QIDP PRN 03/08/19 03/09/19 History [Duoneb 3mL neb] Allergies Allergy/AdvReac Type Severity Reaction Status Date / Time No Known Allergies Allergy Verified 01/28/19 01:24 Exam Vital signs and Labs for Last 24 Hours: Temp Pulse Resp BP Pulse Ox 98.4 F 98 H 17 124/75 100 03/09/19 07:55 03/09/19 07:55 03/09/19 07:55 03/09/19 07:55 03/09/19 07:55 Laboratory Results - last 24 hr 03/08/19 09:15: Total Counted 100, Neutrophils % (Manual) 88 H, Band Neutrophils % 4.0, Lymphocytes % (Manual) 4 L, Monocytes % (Manual) 4, Platelet Estimate Marked increase 03/08/19 09:15: Lactate 1.9 03/08/19 09:15: Lipase 79 I & O for Last 24 hours: Intake & Output 03/06/19 03/07/19 03/08/19 03/09/19 23:59 23:59 23:59 23:59 Intake Total 1169 / 1169 Output Total 750 / 1150 400 / 400 Balance -750 / -1150 769 / 769 Weight 57.266 kg 55.593 kg - Constitutional mild distress, cachectic, chronically ill appearing - *Routine HEENT Exam Head: Present: normocephalic, atraumatic Eye: Present: EOMI, PERRL ENT: Present: mucous membranes moist Comments: bitemporal wasting, loss of periorbital fat, sunken eyes. - *Routine Neck Exam Present: supple, full ROM. Absent: JVD - *Routine Respiratory Exam Present: prolonged expiratory phase. Absent: accessory muscle use Comments: coarse bilaterally, no wheeze, rhonchi appreciated bilaterally. - *Routine Cardiovascular Exam Present: RRR - *Routine Abdominal Exam Present: soft, normoactive bowel sounds. Absent: tenderness Comments: G-tube in place in left upper abdomen, skin nonerythematous, clean dry and intact surrounding insertion - *Routine Rectal Exam Patient deferred: visual exam - *Routine Exam Patient deferred: penile exam - *Routine Extremities Exam Absent: cyanosis, clubbing, edema Comments: Loss of muscle mass, thin extremities - *Routine Skin Exam Present: intact. Absent: cyanosis, erythema - *Routine Neurological Exam Present: alert Assessment and Plan (1) HCAP (healthcare-associated pneumonia) Current visit: Yes Status: Acute Category: Medical Code(s): J18.9 - Pneumonia, unspecified organism (2) Sepsis Current visit: Yes Status: Acute Qualifiers: Sepsis type: sepsis due to unspecified organism Qualified Code(s): A41.9 - Sepsis, unspecified organism Category: Medical Code(s): A41.9 - Sepsis, unspecified organism (3) Seizure disorder Current visit: No Status: Chronic Category: Medical Code(s): G40.909 - Epilepsy, unspecified, not intractable, without status epilepticus (4) Cachexia Current visit: Yes Status: Chronic Category: Medical Code(s): R64 - Cachexia (5) Hypernatremia Current visit: Yes Status: Acute Category: Medical Code(s): E87.0 - Hyperosmolality and hypernatremia due to dehydration, monitor for improvement with IV fluid resuscitation - Assessment and plan all Dx Assessment and Plan for all problems:: Mr. Fountain is a 53yo male with multiple chronic medical conditions, severe debility, and [facility] shelter care who presented with sepsis. Started on Abx fo pneumonia. Cultures obtained. Improved fever curve since admission. Will continue to monitor for improvement in respiratory and electrolyte disturbances. Condition guarded. resume tube feeds, per nutrition/dietitian recs.
[2019-03-10 05:44] LABS: Basophils % 0.4 % (0.1-2.0); Eosinophils # 0.3 K/mm3 (0.0-0.4); Eosinophils % 2.5 % (0.1-12.0); Hematocrit 33.2 % (42.0-52.0); Hemoglobin 9.9 g/dL (14.1-18.0); Lymphocytes # 1.9 K/mm3 (0.7-4.5); Lymphocytes % 18.5 % (10-50); Mean Corpuscular HGB Conc 29.9 g/dL (31.8-35.4); Mean Corpuscular Volume 102.7 fl (80-94); Mean Platelet Volume 8.1 fl (7.4-10.4); Monocytes # 0.8 K/mm3 (0.1-1.0); Monocytes % 7.8 % (1.7-9.3); Neutrophils # 7.3 K/mm3 (1.8-7.8); Neutrophils % 70.7 % (37.0-80.0); Red Blood Count 3.23 M/mm3 (4.60-6.20); Red Cell Distribution Width 15.2 % (11.5-17.5); White Blood Count 10.3 K/mm3 (4.8-10.8)
[2019-03-10 05:46] LABS: Platelet Count 641 K/mm3 (142-424)
[2019-03-10 05:57] LABS: Albumin Level 2.2 gm/dL (3.4-5.0); Albumin/Globulin Ratio 0.6 (1.1-1.8); Bilirubin,Total 0.2 mg/dL (0.2-1.0); Phosphorous 2.7 mg/dL (2.4-4.9); Total Protein,Serum 6.2 gm/dL (6.4-8.2)
[2019-03-10 06:02] LABS: Calcium 8.4 mg/dL (8.5-10.1)
--- NOTE | 2019-03-10 08:22 | Progress Note ---
Internal Medicine - PN: Subj *Date: 03/10/19 *Time: 10:12 Interval history: 53-year-old male remained hemodynamically stable over the past 24 hours. Afebrile. Restarted tube feeds tolerated well. No acute distress this morning on interview. Sleeping on initial interview. No complaints. Denies belly pain, shortness of breath, fever, worsening weakness Exam Vital signs and Labs for Last 24 Hours: Temp Pulse Resp BP Pulse Ox 98.1 F 95 H 20 106/66 L 96 03/10/19 07:57 03/10/19 07:57 03/10/19 07:57 03/10/19 07:57 03/10/19 07:57 Laboratory Results - last 24 hr 03/10/19 05:20: WBC 10.3 D, RBC 3.23 L D, Hgb 9.9 L, Hct 33.2 L, MCV 102.7 H, MCH 30.7, MCHC 29.9 L, RDW 15.2, Plt Count 641 H D, MPV 8.1, Neut % (Auto) 70.7, Lymph % (Auto) 18.5, [place] % (Auto) 7.8, Eos % (Auto) 2.5, Baso % (Auto) 0.4, Neut # (Auto) 7.3, Lymph # (Auto) 1.9, [place] # (Auto) 0.8, Eos # (Auto) 0.3, Baso # (Auto) 0.0 03/10/19 05:20: Sodium 151 H*, Potassium 3.0 L, Chloride 114 H, Carbon Dioxide 3 0, Anion Gap 10.0, BUN 19 H D, Creatinine 0.48 L, Estimated Creat Clear 144, Estimated GFR 182, Est GFR ( Amer) 220 D, Glucose 129 H, Calcium 8.4 L D , Phosphorus 2.7, Magnesium 1.9, Total Bilirubin 0.2, AST 13 L, ALT 17 D, Alkaline Phosphatase 79, Total Protein 6.2 L D, Albumin 2.2 L, Globulin 4.0 H, Albumin/Globulin Ratio 0.6 L I & O for Last 24 hours: Intake & Output 03/07/19 03/08/19 03/09/19 03/10/19 23:59 23:59 23:59 23:59 Intake Total 4886 / 4886 150 / 150 Output Total 750 / 1150 1730 / 1730 Balance -750 / -1150 3156 / 3156 150 / 150 Weight 57.266 kg 55.593 kg 58.06 kg Microbiology Reports for the Last 24 Hours: Microbiology 03/09/19 19:35 Sputum - Expectorated Sputum Gram Stain - Final Narrative: - Constitutional mild distress, cachectic, chronically ill appearing - *Routine HEENT Exam Head: normocephalic, atraumatic, bitemporal wasting, loss of periorbital fat, sunken eyes. ENT: mucous membranes moist - *Routine Respiratory Exam Present: prolonged expiratory phase. Absent: accessory muscle use Comments: coarse bilaterally, no wheeze, rhonchi appreciated bilaterally. - *Routine Cardiovascular Exam Present: RRR - *Routine Abdominal Exam Present: soft, normoactive bowel sounds. Absent: tenderness Comments: G-tube in place in left upper abdomen, skin nonerythematous, clean dry and intact surrounding insertion - *Routine Rectal Exam Patient deferred: visual exam - *Routine Exam Patient deferred: penile exam - *Routine Extremities Exam Absent: cyanosis, clubbing, edema Comments: Loss of muscle mass, thin extremities - *Routine Skin Exam Present: intact. Absent: cyanosis, erythema - *Routine Neurological Exam Present: alert Assessment and Plan (1) HCAP (healthcare-associated pneumonia) Current visit: Yes Status: Acute Category: Medical Code(s): J18.9 - Pneumonia, unspecified organism (2) Sepsis Current visit: Yes Status: Acute Qualifiers: Sepsis type: sepsis due to unspecified organism Qualified Code(s): A41.9 - Sepsis, unspecified organism Category: Medical Code(s): A41.9 - Sepsis, unspecified organism (3) Seizure disorder Current visit: No Status: Chronic Category: Medical Code(s): G40.909 - Epilepsy, unspecified, not intractable, without status epilepticus (4) Cachexia Current visit: Yes Status: Chronic Category: Medical Code(s): R64 - Cachexia (5) Hypernatremia Current visit: Yes Status: Acute Category: Medical Code(s): E87.0 - Hyperosmolality and hypernatremia - Assessment and plan all Dx Assessment and Plan for all problems:: 53-year-old male who presented with sepsis. Continue current antibiotic regimen for pneumonia coverage. Cultures pending. Of concern, hyponatremia worsened slightly today. Will increase free water through IV and enteral means. 1 L D5 half-normal saline with 20 mEq of potassium chloride. Free water deficit calculated at approximately 1.4 L. Additionally will add 200 cc free water per tube 3 times a day as flushes. Clinically patient appears stable and improving. Condition remains guarded. Prognosis good. If continues to improve will transition to oral/per tube antibiotics tomorrow with plan for discharge back to detention.
--- NOTE | 2019-03-10 16:07 | Discharge Summary ---
General - General Admission date:: 03/08/19 Discharge date: 03/11/19 HPI HPI: Mr. Fountain is a chronically ill 53-year-old gentleman with weakness, debility, G-tube dependence, and seizure disorder who presented to the ER l yesterday from [facility] due to elevated temperature, tachycardia, agitation, and worsening cough. Of note he reportedly had low pulse ox of 79% on room air at the custodial. They also stated his contractures became more prominent prior to transfer. At time of assessment in the ER patient was found to have a pneumonia. Heart rate and respiratory rate along with presumed infection and leukocytosis 22k met criteria for sepsis. Admitted and initiated on broad-spectrum antibiotics. On interview this morning patient is pleasant, limited history obtained from the patient. but confused about his current location and time. Discussion with nurse at custodial elicited that the patient was more altered yesterday and agitated giving them concern for possible infection. This led to his transfer. They denied any trauma or falls yesterday however he has been very weak and unsteady with falls since being at the custodial. Patient is reliant on tube feeds and gets most of his Medications through his G-tube. They do not give him medications by mouth. The patient denies any complaints. Says he feels fine. Denies pain. Denies shortness of breath. Denies nausea. Noted to be febrile here, denies feeling hot. Noted to have recent admission here in January for sepsis and healthcare associated pneumonia. Treated with Zosyn, clindamycin, Levaquin. Symptoms improved with discharge back to custodial after 3 days of hospitalization Hospital Course Hospital Course: Admitted for pneumonia and sepsis. Initiated on broad-spectrum antibiotics including clindamycin, Zosyn, Levaquin. Symptoms defervesced. Stable on supplemental O2. Resumed home medication regimen. Tolerated tube feeds. Due to clinical resolution of symptoms and stabilization of vitals, patient medically stable for discharge back to custodial. Transitioned to Levaquin once a day for completion of antibiotic course. Medically stable for discharge back to custodial. Denies chest pain, shortness of breath, abdominal pain, N/V, diarrhea, confusion. Globally weak at baseline. Objective Vital signs: Temp Pulse Resp BP Pulse Ox 97.6 F 106 H 18 126/65 90 L 03/10/19 12:00 03/10/19 12:00 03/10/19 12:00 03/10/19 12:00 03/10/19 12:00 Narrative: Cachectic male of stated age. Poor dentition, moist mucous membranes. Nasal cannula in place. Pale with good cap refill Bitemporal wasting, loss or periorbital fat, neck supple with no JVD Anterior lung brown clear, posterior lung brown with intervally improved crackles in the base Abdomen soft, nontender, G-tube site clean and intact with no erythema Extremities weak with muscle wasting, moves extremities but strength 4/5 globally Oriented to person but not place and time Pupils equal round reactive, EOMI Pulses 2+ peripherally, no edema Results Labs on day of discharge: Labs from last 24 hours 03/10/19 03/10/19 05:20 05:20 WBC 10.3 D RBC 3.23 L D Hgb 9.9 L Hct 33.2 L MCV 102.7 H MCH 30.7 MCHC 29.9 L RDW 15.2 Plt Count 641 H D MPV 8.1 Neut % (Auto) 70.7 Lymph % (Auto) 18.5 [place] % (Auto) 7.8 Eos % (Auto) 2.5 Baso % (Auto) 0.4 Neut # (Auto) 7.3 Lymph # (Auto) 1.9 [place] # (Auto) 0.8 Eos # (Auto) 0.3 Baso # (Auto) 0.0 Sodium 151 H* Potassium 3.0 L Chloride 114 H Carbon Dioxide 30 Anion Gap 10.0 BUN 19 H D Creatinine 0.48 L Estimated Creat Clear 144 Estimated GFR 182 Est GFR ( Amer) 220 D Glucose 129 H Calcium 8.4 L D Phosphorus 2.7 Magnesium 1.9 Total Bilirubin 0.2 AST 13 L ALT 17 D Alkaline Phosphatase 79 Total Protein 6.2 L D Albumin 2.2 L Globulin 4.0 H Albumin/Globulin Ratio 0.6 L Preliminary micro results at discharge 03/08/19 09:15 Blood Culture - Preliminary Blood NO GROWTH AFTER 48 HOURS 03/08/19 09:15 Blood Culture - Preliminary Blood NO GROWTH AFTER 48 HOURS DS: Diagnosis - Discharge Diagnosis (1) HCAP (healthcare-associated pneumonia) Status: Acute (2) Sepsis Status: Resolved (3) Seizure disorder Status: Chronic (4) Cachexia Status: Chronic (5) Hypernatremia Status: Acute Discharge Plan - Patient Discharge Instructions ACTIVITY: Limited activity DIET: continue same diet Patient Instructions: DI for Pneumonia -- Adult, DI for Sepsis -- Adult - Follow up Plan Disposition: [facility] Home Medications: Home Medications Medication Instructions Recorded Confirmed Type Acetaminophen [Tylenol 500mg 500 mg RC NEEDED PRN 01/28/19 03/08/19 History tablet] Benzonatate [Benzonatate 100mg 100 mg G-TUBE TIDP PRN 01/28/19 03/09/19 History cap] Bisacodyl [Bisacodyl 10mg Supp] 10 mg RC DAILYP PRN 01/28/19 03/08/19 History Doxazosin Mesylate [Doxazosin 1mg 1 mg G-TUBE DAILY 01/28/19 03/08/19 History Tab] Folic Acid [Folic Acid 1mg tablet] 1 mg G-TUBE DAILY 01/28/19 03/08/19 History Gabapentin [Gabapentin 300mg Cap] 300 mg G-TUBE TID 01/28/19 03/08/19 History Ibuprofen [Ibuprofen 800mg 800 mg G-TUBE BID 01/28/19 03/09/19 History Tablet] Melatonin/Pyridoxine HCl (B6) 1 each G-TUBE HSP PRN 01/28/19 03/08/19 History [Melatonin 3 mg Tablet] Mirtazapine [Remeron 15mg tablet] 15 mg G-TUBE HS 01/28/19 03/08/19 History Mometasone/Formoterol [Dulera 200 2 puffs IH BID 01/28/19 03/09/19 History Mcg/5 Mcg Inhaler] Ondansetron [Zofran 4mg ODT] 4 mg PO Q6HP PRN 01/28/19 03/09/19 History Pyridoxine HCl (Vitamin B6) 50 mg G-TUBE DAILY 01/28/19 03/08/19 History [Pyridoxine HCl] Quetiapine Fumarate 100 mg G-TUBE BID 01/28/19 03/08/19 History Sennosides [Senna] 8.6 mg G-TUBE DAILY 01/28/19 03/09/19 History Sertraline HCl [Zoloft 100mg 200 mg G-TUBE DAILY 01/28/19 03/08/19 History tablet] Simethicone [Gas Relief] 80 mg G-TUBE Q4HP PRN 01/28/19 03/09/19 History Thiamine HCl 100 mg G-TUBE DAILY 01/28/19 03/08/19 History Tiotropium [place] [Spiriva 2 puff IH DAILY 01/28/19 03/09/19 History 18mcg/puff inhaler] Valproic Acid (As Sodium Salt) 500 mg G-TUBE BID 01/28/19 03/08/19 History [Valproic Acid] chlordiazePOXIDE HCl [Librium 10mg 10 mg G-TUBE TID 01/28/19 03/08/19 History Capsule] levETIRAcetam [Keppra] 750 mg G-TUBE BID 01/28/19 03/08/19 History Acetaminophen [Tylenol elixir 650 mg PO Q4HP PRN udc 01/29/19 03/08/19 Rx 325mg/10.15mL UDC] Furosemide [Lasix 20mg tab] 20 mg G-TUBE DAILY 03/08/19 03/08/19 History Hydrocodone/Acetaminophen [[place] 1 each G-TUBE Q4HP PRN 03/08/19 03/09/19 History 5-325 Tablet] Ipratropium/Albuterol Sulfate 3 ml IH QIDP PRN 03/08/19 03/09/19 History [Duoneb 3mL neb] levoFLOXacin [Levaquin 750mg 750 mg PO DAILY 8 Days #8 tab 03/11/19 Rx tablet] Prescriptions/Medication Reconciliation: New levoFLOXacin [Levaquin 750mg tablet] 750 mg PO DAILY 8 Days #8 tab Continued Tiotropium [place] [Spiriva 18mcg/puff inhaler] 2 puff IH DAILY Ibuprofen [Ibuprofen 800mg Tablet] 800 mg G-TUBE BID Valproic Acid (As Sodium Salt) [Valproic Acid] 500 mg G-TUBE BID Thiamine HCl 100 mg G-TUBE DAILY Sertraline HCl [Zoloft 100mg tablet] 200 mg G-TUBE DAILY Sennosides [Senna] 8.6 mg G-TUBE DAILY Quetiapine Fumarate 100 mg G-TUBE BID Pyridoxine HCl (Vitamin B6) [Pyridoxine HCl] 50 mg G-TUBE DAILY Ondansetron [Zofran 4mg ODT] 4 mg PO Q6HP PRN PRN Reason: Nausea Mirtazapine [Remeron 15mg tablet] 15 mg G-TUBE HS Melatonin/Pyridoxine HCl (B6) [Melatonin 3 mg Tablet] 1 each G-TUBE HSP PRN PRN Reason: Sleep levETIRAcetam [Keppra] 750 mg G-TUBE BID Gabapentin [Gabapentin 300mg Cap] 300 mg G-TUBE TID Folic Acid [Folic Acid 1mg tablet] 1 mg G-TUBE DAILY Doxazosin Mesylate [Doxazosin 1mg Tab] 1 mg G-TUBE DAILY chlordiazePOXIDE HCl [Librium 10mg Capsule] 10 mg G-TUBE TID Benzonatate [Benzonatate 100mg cap] 100 mg G-TUBE TIDP PRN PRN Reason: Cough Acetaminophen [Tylenol 500mg tablet] 500 mg RC NEEDED PRN PRN Reason: pain Ipratropium/Albuterol Sulfate [Duoneb 3mL neb] 3 ml IH QIDP PRN PRN Reason: Congestion Bisacodyl [Bisacodyl 10mg Supp] 10 mg RC DAILYP PRN PRN Reason: Constipation Simethicone [Gas Relief] 80 mg G-TUBE Q4HP PRN PRN Reason: Gas Pain And Discomfort Mometasone/Formoterol [Dulera 200 Mcg/5 Mcg Inhaler] 2 puffs IH BID Acetaminophen [Tylenol elixir 325mg/10.15mL UDC] 650 mg PO Q4HP PRN udc PRN Reason: As Needed For Fever Or Pain Hydrocodone/Acetaminophen [[place] 5-325 Tablet] 1 each G-TUBE Q4HP PRN PRN Reason: PAIN Furosemide [Lasix 20mg tab] 20 mg G-TUBE DAILY
[2019-03-10 18:27] LABS: Anion Gap 7.1 mEq/L (5-15); Calcium 8.1 mg/dL (8.5-10.1)
[2019-03-11 06:27] LABS: Basophils # 0.1 K/mm3 (0-0.2); Basophils % 0.4 % (0.1-2.0); Eosinophils # 0.6 K/mm3 (0.0-0.4); Eosinophils % 5.4 % (0.1-12.0); Hematocrit 37.6 % (42.0-52.0); Hemoglobin 11.4 g/dL (14.1-18.0); Lymphocytes # 1.8 K/mm3 (0.7-4.5); Lymphocytes % 15.6 % (10-50); Mean Corpuscular HGB Conc 30.3 g/dL (31.8-35.4); Mean Corpuscular Volume 101.9 fl (80-94); Mean Platelet Volume 8.4 fl (7.4-10.4); Monocytes # 0.6 K/mm3 (0.1-1.0); Monocytes % 5.4 % (1.7-9.3); Neutrophils # 8.5 K/mm3 (1.8-7.8); Neutrophils % 73.1 % (37.0-80.0); Red Blood Count 3.69 M/mm3 (4.60-6.20); Red Cell Distribution Width 14.9 % (11.5-17.5); White Blood Count 11.7 K/mm3 (4.8-10.8)
[2019-03-11 06:36] LABS: Platelet Count 719 K/mm3 (142-424)
[2019-03-11 06:43] LABS: Albumin Level 2.3 gm/dL (3.4-5.0); Albumin/Globulin Ratio 0.6 (1.1-1.8); Anion Gap 7.7 mEq/L (5-15); Bilirubin,Total 0.1 mg/dL (0.2-1.0); Calcium 8.7 mg/dL (8.5-10.1); Globulin 3.9 gm/dl (1.3-3.2); Total Protein,Serum 6.2 gm/dL (6.4-8.2)
== END 2019-03-11 11:45 | DRG 871 ==
LOC: 2ND 09:06 → ER 09:06 → OBSVTOIN 16:29 → 2ND 16:30
PROVIDERS: ADMIT Emergency Medicine; ATTEND Internal Medicine Adolescent Medicine
CPT/HCPCS: 36415; 71010; 71045; 71260; 74177; 80048; 80053; 81001; 82962; 83605; 83690; 83735; 84100; 85007; 85025; 87040; 87070; 87077; 87186; 87205; 93005; 94640; 94761; 96365; 96367; 99285; J1956; J2543; S0077

== ENCOUNTER 2019-03-23 15:04 | Observation (INO) ==
--- NOTE | 2019-03-23 15:18 | Emergency Department Note ---
ED Disposition Clinical Impression: Pneumonia Disposition: Admitted As Inpatient Condition on Discharge: Fair Instructions: Pneumonia-Adult Time of Disposition: 17:50 - Critical Care Critical Care Time: No Attestation: On , the high probability of a clinically significant, sudden or life threatening deterioration of the following system(s) required my full and direct attention, intervention and personal management. The time I documented below is in addition to time spent performing reported procedures but includes the following listed in this critical care notation. Medical Decision Making - Medical Records Medical records reviewed: Yes: I reviewed the patient's medical records. - Gene Inquiry Pt receiving controlled substance: No Gene was queried for this patient: No Vital Signs: 03/23/19 15:05 03/23/19 15:31 03/23/19 16:11 Temperature 97.8 F Temperature Source Oral Pulse Rate 72 Pulse Rate [Left Radial] 108 H 102 H Respiratory Rate 24 28 H Blood Pressure [Right Arm] 139/81 118/72 Blood Pressure Mean [Right Arm] 100 87 Blood Pressure Source [Right Arm] Automatic Cuff Automatic Cuff Blood Pressure Position [Right Arm] Sitting Supine 02 Sat by Pulse Oximetry 94 L 82 L 91 L Oxygen Delivery Method Nasal Cannula Nasal Cannula Nasal Cannula Oxygen Flow Rate (LPM) 3 5 4 03/23/19 17:05 Temperature Temperature Source Pulse Rate Pulse Rate [Left Radial] 99 H Respiratory Rate 24 Blood Pressure [Right Arm] 122/77 Blood Pressure Mean [Right Arm] 92 Blood Pressure Source [Right Arm] Automatic Cuff Blood Pressure Position [Right Arm] Sitting 02 Sat by Pulse Oximetry 99 Oxygen Delivery Method Non-Rebreather Oxygen Flow Rate (LPM) 15 - Lab Data Lab results reviewed: Yes: I reviewed the patient's lab results. Lab Results 03/23/19 15:11: Specimen Source Left radial, O2 % 4l, ABG pH 7.41, ABG pCO2 62.1 H, ABG pO2 52.6 L, ABG HCO3 38.6 H, ABG Total CO2 40.5 H, ABG O2 Saturation 87 L*, ABG Base Excess 13.9 H, Syed Test Acceptable 03/23/19 15:25: WBC 14.6 H, RBC 4.13 L, Hgb 12.2 L, Hct 39.1 L, MCV 94.8 H, MCH 29.5, MCHC 31.1 L, RDW 14.6, Plt Count 524 H, MPV 8.1, Neut % (Auto) 81.9 H, Lymph % (Auto) 9.1 L, [place] % (Auto) 7.3, Eos % (Auto) 1.4, Baso % (Auto) 0.3, Neut # (Auto) 12.0 H, Lymph # (Auto) 1.3, [place] # (Auto) 1.1 H, Eos # (Auto) 0.2, Baso # (Auto) 0.0 03/23/19 15:25: Sodium 144, Potassium 4.2, Chloride 105, Carbon Dioxide 36 H, Anion Gap 7.2, BUN 28 H, Creatinine 0.46 L, Estimated Creat Clear 153, Estimated GFR 191, Est GFR ( Amer) 231, Glucose 130 H, Calcium 10.1, Total Bilirubin 0.2, AST 14 L, ALT 20, Alkaline Phosphatase 116, Total Protein 8.1 D, Albumin 3.0 L, Globulin 5.1 H, Albumin/Globulin Ratio 0.6 L 03/23/19 15:25: Lactate 0.5 Result diagrams: 03/23/19 15:25 03/23/19 15:25 Orders (Tests/Meds): ED MEDICATIONS Generic Name Dose Route Start Last Admin Trade Name Freq PRN Reason Stop Dose Admin Albuterol/Ipratropium 3 ml 03/23/19 15:30 03/23/19 15:50 Duoneb 3ml Neb IH 04/22/19 15:29 3 ml Q1H PARDEEP Administration Discontinued Medications Generic Name Dose Route Start Last Admin Trade Name Freq PRN Reason Stop Dose Admin Sodium Chloride 1,000 mls @ 999 mls/hr 03/23/19 15:15 03/23/19 15:49 Sod Chlor 0.9% 1000ml Bag IV 03/23/19 16:15 999 mls/hr .Q1H1M PARDEEP Administration Methylprednisolone Sodium Succinate 125 mg 03/23/19 15:17 03/23/19 15:26 Solu-Medrol 125mg/2ml Vial IV 03/23/19 15:18 Not Given ONCE ONE ORDERS Category Date Time Status CT chest wo con Stat Cat Scan 03/23/19 16:24 Taken UA [Urinalysis and Microscopic] Stat Lab 03/23/19 15:13 Ordered Blood Culture Stat Micro 03/23/19 15:13 Received General Adult HPI - General Chief complaint: Weakness Stated complaint: Lethargic Time Seen by Provider: 03/23/19 15:15 Mode of Arrival: EMS Source of Information: EMS Limitations: Physical Limitations Description of Symptoms (Recalled from ER Triage Doc. by RN): [facility] called out for pt being lethargic and congested. Pt awake upon arrival to ER. Pt is unable to speak. - History of Present Illness HPI narrative: brain injured addict, ? hypoxic , gurgling with decreased responsiveness and depressed respirations - Related Data Home Medications Medication Instructions Recorded Confirmed Acetaminophen [Tylenol 500mg 500 mg RC NEEDED PRN 01/28/19 03/23/19 tablet] Benzonatate [Benzonatate 100mg 100 mg G-TUBE TIDP PRN 01/28/19 03/23/19 cap] Bisacodyl [Bisacodyl 10mg Supp] 10 mg RC DAILYP PRN 01/28/19 03/23/19 Doxazosin Mesylate [Doxazosin 1mg 1 mg G-TUBE DAILY 01/28/19 03/23/19 Tab] Folic Acid [Folic Acid 1mg tablet] 1 mg G-TUBE DAILY 01/28/19 03/23/19 Gabapentin [Gabapentin 300mg Cap] 300 mg G-TUBE TID 01/28/19 03/23/19 Ibuprofen [Ibuprofen 800mg 800 mg G-TUBE BID 01/28/19 03/23/19 Tablet] Melatonin/Pyridoxine HCl (B6) 1 each G-TUBE HSP PRN 01/28/19 03/23/19 [Melatonin 3 mg Tablet] Mirtazapine [Remeron 15mg tablet] 15 mg G-TUBE HS 01/28/19 03/23/19 Mometasone/Formoterol [Dulera 200 2 puffs IH BID 01/28/19 03/23/19 Mcg/5 Mcg Inhaler] Ondansetron [Zofran 4mg ODT] 4 mg PO Q6HP PRN 01/28/19 03/23/19 Pyridoxine HCl (Vitamin B6) 50 mg G-TUBE DAILY 01/28/19 03/23/19 [Pyridoxine HCl] Quetiapine Fumarate 100 mg G-TUBE BID 01/28/19 03/23/19 Sennosides [Senna] 8.6 mg G-TUBE DAILY 01/28/19 03/23/19 Sertraline HCl [Zoloft 100mg 200 mg G-TUBE DAILY 01/28/19 03/23/19 tablet] Simethicone [Gas Relief] 80 mg G-TUBE Q4HP PRN 01/28/19 03/23/19 Thiamine HCl 100 mg G-TUBE DAILY 01/28/19 03/23/19 Tiotropium [place] [Spiriva 2 puff IH DAILY 01/28/19 03/23/19 18mcg/puff inhaler] Valproic Acid (As Sodium Salt) 500 mg G-TUBE BID 01/28/19 03/23/19 [Valproic Acid] chlordiazePOXIDE HCl [Librium 10mg 10 mg G-TUBE TID 01/28/19 03/23/19 Capsule] levETIRAcetam [Keppra] 750 mg G-TUBE BID 01/28/19 03/23/19 Furosemide [Lasix 20mg tablet] 20 mg G-TUBE DAILY 03/08/19 03/23/19 Hydrocodone/Acetaminophen [[place] 1 each G-TUBE Q4HP PRN 03/08/19 03/23/19 5-325 Tablet] Ipratropium/Albuterol Sulfate 3 ml IH QIDP PRN 03/08/19 03/23/19 [Duoneb 3mL neb] Previous Rx's Medication Instructions Recorded Acetaminophen [Tylenol elixir 650 mg PO Q4HP PRN udc 01/29/19 325mg/10.15mL UDC] Allergies Allergy/AdvReac Type Severity Reaction Status Date / Time No Known Allergies Allergy Verified 01/28/19 01:24 [facility] History - Hepatitis A Screen Drug use history?: No High risk sexual behaviors?: No History of sexually transmitted infection?: No Currently employed?: No Childcare worker?: No Do you have indoor plumbing?: Yes Do you have electricity?: Yes Attestation statement:: This patient has been screened for Hepatitis A risk factors. I have reviewed the patient's past medical history: Yes Medical History: Reports:: BPH, Chronic Obstructive Pulmonary Disease (COPD) Denies:: Diabetes Mellitus Type 1, Diabetes Mellitus Type 2 - Social History Alcohol Intake: never Occupational Status: disabled Housing: alf Household Members: other Family Hx:: Unable to obtain (Patient is a poor historian and cannot recall) ROS Obtained: Yes unobtainable due to mental condition Physical Exam - General General appearance: in no apparent distress, other (congested respirations.) - Head Head exam: atraumatic - ENT ENT exam: Present: normal exam, normal oropharynx, mucous membranes moist, TM's normal bilaterally, normal external ear exam - Chest Chest inspection: Present: normal inspection, symmetric chest wall rise. Absent: tenderness - Respiratory Respiratory exam: Present: wheezes, other (rhonchi). Absent: respiratory distress - Cardiovascular Cardiovascular exam: Present: regular rate, normal rhythm. Absent: JVD - Abdominal Exam Abdominal exam: Present: soft, other (peg in place). Absent: distention, ten derness - Extremities Exam Extremities exam: Present: normal inspection, full ROM, normal capillary refill. Absent: calf tenderness - Neurological Exam Neurological exam: Present: alert, CN II-XII intact, other (non-communicative). Absent: oriented X3 - Psychiatric Psychiatric exam: Present: flat affect - Skin Skin exam: Present: warm, dry, intact, normal color
[2019-03-23 15:57] LABS: Albumin/Globulin Ratio 0.6 (1.1-1.8); Anion Gap 7.2 mEq/L (5-15); Bilirubin,Total 0.2 mg/dL (0.2-1.0); Calcium 10.1 mg/dL (8.5-10.1); Globulin 5.1 gm/dl (1.3-3.2); Total Protein,Serum 8.1 gm/dL (6.4-8.2)
[2019-03-23 15:59] LABS: Basophils % 0.3 % (0.1-2.0); Eosinophils # 0.2 K/mm3 (0.0-0.4); Eosinophils % 1.4 % (0.1-12.0); Hematocrit 39.1 % (42.0-52.0); Hemoglobin 12.2 g/dL (14.1-18.0); Lymphocytes # 1.3 K/mm3 (0.7-4.5); Lymphocytes % 9.1 % (10-50); Mean Corpuscular HGB Conc 31.1 g/dL (31.8-35.4); Mean Corpuscular Volume 94.8 fl (80-94); Mean Platelet Volume 8.1 fl (7.4-10.4); Monocytes # 1.1 K/mm3 (0.1-1.0); Monocytes % 7.3 % (1.7-9.3); Neutrophils % 81.9 % (37.0-80.0); Platelet Count 524 K/mm3 (142-424); Red Blood Count 4.13 M/mm3 (4.60-6.20); Red Cell Distribution Width 14.6 % (11.5-17.5); White Blood Count 14.6 K/mm3 (4.8-10.8)
[2019-03-23 16:01] LABS: ABG Base Excess 13.9 mmol/L (-2.4-2.3); ABG HCO3 38.6 mmhg (22.0-26.0); ABG Oxygen Saturation 87 % (90-100); ABG PH 7.41 mmol/L (7.35-7.45); ABG PO2 52.6 mmhg (80-100); ABG TCO2 40.5 mmhg (23-27)
[2019-03-23 16:05] LABS: Oxygen 4L %
[2019-03-23 16:06] LABS: Allen's Test Acceptable
[2019-03-23 16:08] LABS: ABG PCO2 62.1 mmhg (35.0-45.0)
[2019-03-24 07:19] LABS: Basophils % 0.1 % (0.1-2.0); Eosinophils % 0.2 % (0.1-12.0); Hematocrit 37.1 % (42.0-52.0); Hemoglobin 11.3 g/dL (14.1-18.0); Lymphocytes # 0.9 K/mm3 (0.7-4.5); Lymphocytes % 8.7 % (10-50); Mean Corpuscular HGB Conc 30.5 g/dL (31.8-35.4); Mean Corpuscular Volume 96.6 fl (80-94); Mean Platelet Volume 8.5 fl (7.4-10.4); Monocytes # 0.3 K/mm3 (0.1-1.0); Monocytes % 3.4 % (1.7-9.3); Neutrophils # 8.7 K/mm3 (1.8-7.8); Neutrophils % 87.7 % (37.0-80.0); Platelet Count 471 K/mm3 (142-424); Red Blood Count 3.84 M/mm3 (4.60-6.20); Red Cell Distribution Width 14.3 % (11.5-17.5)
[2019-03-24 07:29] LABS: Anion Gap 7.9 mEq/L (5-15); Calcium 9.5 mg/dL (8.5-10.1)
--- NOTE | 2019-03-24 08:08 | History & Physical Report ---
*Admission Date: 03/23/19 *Chief complaint: Respiratory distress *History of present illness: Mr. Fountain is a chronically ill 53-year-old gentleman with weakness, debility, G-tube dependence, and seizure disorder who presented to the ER l yesterday from [facility] due to acute onset of some respiratory distress with O2 sats in the mid 70s. This story is quite similar to the history from his hospitalization earlier in the month from March 08 to March 11. Patient was evaluated in the emergency department and was found to be hypoxic. White blood cell count was elevated and CT scan showed persistence of pneumonia previously identified at his admission earlier in the month but pneumonia was now increased in size in the left lower lobe with some evidence of right lower lobe pneumonia as well. In addition to this the radiologist identifies some abnormal appearance to the bronchus suggestive of possible aspiration. Patient was admitted on broad-spectrum antibiotics. Since admission patient has been witnessed having apneic spells while asleep. Respiratory therapy notes this morning that when patient is asleep he appears to have difficulty protecting his airway and will have a long periods of apnea that correct once patient is aroused or awakened. This morning the patient is awake. He is able to answer some questions. He admits to a cough but cannot confirm any sputum production. He does not believe he is had any fevers. He denies shortness of breath and appears comfortable in his bed. He is not requiring supplemental oxygen. [facility] History I have reviewed the patient's past medical history: Yes Medical History: Reports:: BPH, Chronic Obstructive Pulmonary Disease (COPD), Seizures Denies:: Diabetes Mellitus Type 1, Diabetes Mellitus Type 2 *Have you ever received a pneumonia vaccine?: No *Have you received a flu vaccine this season?: No Comment: G-tube placement - *Social History Alcohol Intake: former *Occupational Status:: disabled Housing: [facility] Household Members: other *Travel in the last 8 weeks: None - Psychiatric History Expresses thoughts of harming self/others: None Family Hx:: Unable to obtain (Patient is a poor historian and cannot recall) Review of Systems - Review of Systems Review of systems:: unable to obtain - Constitutional Reports chills Meds Home Medications Medication Instructions Recorded Confirmed Type Acetaminophen [Tylenol 500mg 500 mg RC NEEDED PRN 01/28/19 03/23/19 History tablet] Benzonatate [Benzonatate 100mg 100 mg G-TUBE TIDP PRN 01/28/19 03/23/19 History cap] Bisacodyl [Bisacodyl 10mg Supp] 10 mg RC DAILYP PRN 01/28/19 03/23/19 History Doxazosin Mesylate [Doxazosin 1mg 1 mg G-TUBE DAILY 01/28/19 03/23/19 History Tab] Folic Acid [Folic Acid 1mg tablet] 1 mg G-TUBE DAILY 01/28/19 03/23/19 History Gabapentin [Gabapentin 300mg Cap] 300 mg G-TUBE TID 01/28/19 03/23/19 History Ibuprofen [Ibuprofen 800mg 800 mg G-TUBE BID 01/28/19 03/23/19 History Tablet] Melatonin/Pyridoxine HCl (B6) 1 each G-TUBE HSP PRN 01/28/19 03/23/19 History [Melatonin 3 mg Tablet] Mirtazapine [Remeron 15mg tablet] 15 mg G-TUBE HS 01/28/19 03/23/19 History Mometasone/Formoterol [Dulera 200 2 puffs IH BID 01/28/19 03/23/19 History Mcg/5 Mcg Inhaler] Ondansetron [Zofran 4mg ODT] 4 mg PO Q6HP PRN 01/28/19 03/23/19 History Pyridoxine HCl (Vitamin B6) 50 mg G-TUBE DAILY 01/28/19 03/23/19 History [Pyridoxine HCl] Quetiapine Fumarate 100 mg G-TUBE BID 01/28/19 03/23/19 History Sennosides [Senna] 8.6 mg G-TUBE DAILY 01/28/19 03/23/19 History Sertraline HCl [Zoloft 100mg 200 mg G-TUBE DAILY 01/28/19 03/23/19 History tablet] Simethicone [Gas Relief] 80 mg G-TUBE Q4HP PRN 01/28/19 03/23/19 History Thiamine HCl 100 mg G-TUBE DAILY 01/28/19 03/23/19 History Tiotropium [place] [Spiriva 2 puff IH DAILY 01/28/19 03/23/19 History 18mcg/puff inhaler] Valproic Acid (As Sodium Salt) 500 mg G-TUBE BID 01/28/19 03/23/19 History [Valproic Acid] chlordiazePOXIDE HCl [Librium 10mg 10 mg G-TUBE TID 01/28/19 03/23/19 History Capsule] levETIRAcetam [Keppra] 750 mg G-TUBE BID 01/28/19 03/23/19 History Acetaminophen [Tylenol elixir 650 mg PO Q4HP PRN udc 01/29/19 03/23/19 Rx 325mg/10.15mL UDC] Furosemide [Lasix 20mg tablet] 20 mg G-TUBE DAILY 03/08/19 03/23/19 History Hydrocodone/Acetaminophen [[place] 1 each G-TUBE Q4HP PRN 03/08/19 03/23/19 History 5-325 Tablet] Ipratropium/Albuterol Sulfate 3 ml IH QIDP PRN 03/08/19 03/23/19 History [Duoneb 3mL neb] Allergies Allergy/AdvReac Type Severity Reaction Status Date / Time No Known Allergies Allergy Verified 01/28/19 01:24 Exam Vital signs and Labs for Last 24 Hours: Temp Pulse Resp BP Pulse Ox 97.3 F L 93 H 20 132/74 94 L 03/24/19 05:19 03/24/19 06:43 03/24/19 04:00 03/24/19 04:00 03/24/19 06:43 Laboratory Results - last 24 hr 03/23/19 15:11: Specimen Source Left radial, O2 % 4l, ABG pH 7.41, ABG pCO2 62.1 H, ABG pO2 52.6 L, ABG HCO3 38.6 H, ABG Total CO2 40.5 H, ABG O2 Saturation 87 L*, ABG Base Excess 13.9 H, Syed Test Acceptable 03/23/19 15:25: WBC 14.6 H, RBC 4.13 L, Hgb 12.2 L, Hct 39.1 L, MCV 94.8 H, MCH 29.5, MCHC 31.1 L, RDW 14.6, Plt Count 524 H, MPV 8.1, Neut % (Auto) 81.9 H, Lymph % (Auto) 9.1 L, [place] % (Auto) 7.3, Eos % (Auto) 1.4, Baso % (Auto) 0.3, Neut # (Auto) 12.0 H, Lymph # (Auto) 1.3, [place] # (Auto) 1.1 H, Eos # (Auto) 0.2, Baso # (Auto) 0.0 03/23/19 15:25: Sodium 144, Potassium 4.2, Chloride 105, Carbon Dioxide 36 H, Anion Gap 7.2, BUN 28 H, Creatinine 0.46 L, Estimated Creat Clear 153, Estimated GFR 191, Est GFR ( Amer) 231, Glucose 130 H, Calcium 10.1, Total Bilirubin 0.2, AST 14 L, ALT 20, Alkaline Phosphatase 116, Total Protein 8.1 D, Albumin 3.0 L, Globulin 5.1 H, Albumin/Globulin Ratio 0.6 L 03/23/19 15:25: Lactate 0.5 03/24/19 06:31: WBC 10.0 D, RBC 3.84 L, Hgb 11.3 L, Hct 37.1 L, MCV 96.6 H, MCH 29.5, MCHC 30.5 L, RDW 14.3, Plt Count 471 H, MPV 8.5, Neut % (Auto) 87.7 H, Lymph % (Auto) 8.7 L, [place] % (Auto) 3.4, Eos % (Auto) 0.2, Baso % (Auto) 0.1, Neut # (Auto) 8.7 H, Lymph # (Auto) 0.9, [place] # (Auto) 0.3, Eos # (Auto) 0.0, Baso # (Auto) 0.0 03/24/19 06:31: Sodium 145, Potassium 3.9, Chloride 108 H, Carbon Dioxide 33 H, Anion Gap 7.9, BUN 20 H D, Creatinine 0.51 L, Estimated Creat Clear 122, Estimated GFR 169, Est GFR ( Amer) 205, Glucose 154 H, Calcium 9.5 I & O for Last 24 hours: Intake & Output 03/21/19 03/22/19 03/23/19 03/24/19 11:59 11:59 11:59 11:59 Intake Total 1251 / 1251 Balance 1251 / 1251 Weight 115 lb 2 oz Narrative: Chronically ill-appearing gentleman, cachectic, without signs of discomfort or distress. Oropharynx is moist. Neck is without lymphadenopathy. Lungs have fair aeration with decreased breath sounds at the bases. Heart has a regular rate and rhythm. Abdomen is soft with G-tube in place without drainage. Abdomen is nontender. Patient has intact range of motion in all extremities. Neurologically he is able to answer questions but responses are very slow Assessment and Plan (1) HCAP (healthcare-associated pneumonia) Current visit: No Status: Acute Category: Medical Code(s): J18.9 - Pneumonia, unspecified organism (2) Seizure disorder Current visit: No Status: Chronic Category: Medical Code(s): G40.909 - Epilepsy, unspecified, not intractable, without status epilepticus - Assessment and plan all Dx Assessment and Plan for all problems:: Patient is been placed on broad-spectrum antibiotics but looks quite well. We will check placement of his G-tube. I do believe it is possible the patient is aspirating as over the last 2 months this is his third hospitalization. Based on witnessed apnea that may likely explain these periods where he desats as well. Patient will be placed on BiPAP when asleep if he can tolerate this. He was unaware of any use of [facility] and I will contact them.
--- NOTE | 2019-03-24 08:20 | Pharmacy Consult Notes ---
- Pharmacy Consult Date: 03/24/19 Time: 08:19 Referring provider: DR. ARREOLA Reason for Consult:: VANCOMYCIN DOSING Allergies and ADEs:: Allergies Allergy/AdvReac Type Severity Reaction Status Date / Time No Known Allergies Allergy Verified 01/28/19 01:24 Home Medications:: Home Medications Medication Instructions Recorded Confirmed Type Acetaminophen [Tylenol 500mg 500 mg RC NEEDED PRN 01/28/19 03/23/19 History tablet] Benzonatate [Benzonatate 100mg 100 mg G-TUBE TIDP PRN 01/28/19 03/23/19 History cap] Bisacodyl [Bisacodyl 10mg Supp] 10 mg RC DAILYP PRN 01/28/19 03/23/19 History Doxazosin Mesylate [Doxazosin 1mg 1 mg G-TUBE DAILY 01/28/19 03/23/19 History Tab] Folic Acid [Folic Acid 1mg tablet] 1 mg G-TUBE DAILY 01/28/19 03/23/19 History Gabapentin [Gabapentin 300mg Cap] 300 mg G-TUBE TID 01/28/19 03/23/19 History Ibuprofen [Ibuprofen 800mg 800 mg G-TUBE BID 01/28/19 03/23/19 History Tablet] Melatonin/Pyridoxine HCl (B6) 1 each G-TUBE HSP PRN 01/28/19 03/23/19 History [Melatonin 3 mg Tablet] Mirtazapine [Remeron 15mg tablet] 15 mg G-TUBE HS 01/28/19 03/23/19 History Mometasone/Formoterol [Dulera 200 2 puffs IH BID 01/28/19 03/23/19 History Mcg/5 Mcg Inhaler] Ondansetron [Zofran 4mg ODT] 4 mg PO Q6HP PRN 01/28/19 03/23/19 History Pyridoxine HCl (Vitamin B6) 50 mg G-TUBE DAILY 01/28/19 03/23/19 History [Pyridoxine HCl] Quetiapine Fumarate 100 mg G-TUBE BID 01/28/19 03/23/19 History Sennosides [Senna] 8.6 mg G-TUBE DAILY 01/28/19 03/23/19 History Sertraline HCl [Zoloft 100mg 200 mg G-TUBE DAILY 01/28/19 03/23/19 History tablet] Simethicone [Gas Relief] 80 mg G-TUBE Q4HP PRN 01/28/19 03/23/19 History Thiamine HCl 100 mg G-TUBE DAILY 01/28/19 03/23/19 History Tiotropium [place] [Spiriva 2 puff IH DAILY 01/28/19 03/23/19 History 18mcg/puff inhaler] Valproic Acid (As Sodium Salt) 500 mg G-TUBE BID 01/28/19 03/23/19 History [Valproic Acid] chlordiazePOXIDE HCl [Librium 10mg 10 mg G-TUBE TID 01/28/19 03/23/19 History Capsule] levETIRAcetam [Keppra] 750 mg G-TUBE BID 01/28/19 03/23/19 History Acetaminophen [Tylenol elixir 650 mg PO Q4HP PRN udc 01/29/19 03/23/19 Rx 325mg/10.15mL UDC] Furosemide [Lasix 20mg tablet] 20 mg G-TUBE DAILY 03/08/19 03/23/19 History Hydrocodone/Acetaminophen [[place] 1 each G-TUBE Q4HP PRN 03/08/19 03/23/19 History 5-325 Tablet] Ipratropium/Albuterol Sulfate 3 ml IH QIDP PRN 03/08/19 03/23/19 History [Duoneb 3mL neb] Height: 1.83 m Weight: 52.22 kg Laboratory Results:: Laboratory Results - last 24 hr 03/23/19 15:11: Specimen Source Left radial, O2 % 4l, ABG pH 7.41, ABG pCO2 62.1 H, ABG pO2 52.6 L, ABG HCO3 38.6 H, ABG Total CO2 40.5 H, ABG O2 Saturation 87 L*, ABG Base Excess 13.9 H, Syed Test Acceptable 03/23/19 15:25: WBC 14.6 H, RBC 4.13 L, Hgb 12.2 L, Hct 39.1 L, MCV 94.8 H, MCH 29.5, MCHC 31.1 L, RDW 14.6, Plt Count 524 H, MPV 8.1, Neut % (Auto) 81.9 H, Lymph % (Auto) 9.1 L, [place] % (Auto) 7.3, Eos % (Auto) 1.4, Baso % (Auto) 0.3, Neut # (Auto) 12.0 H, Lymph # (Auto) 1.3, [place] # (Auto) 1.1 H, Eos # (Auto) 0.2, Baso # (Auto) 0.0 03/23/19 15:25: Sodium 144, Potassium 4.2, Chloride 105, Carbon Dioxide 36 H, Anion Gap 7.2, BUN 28 H, Creatinine 0.46 L, Estimated Creat Clear 153, Estimated GFR 191, Est GFR ( Amer) 231, Glucose 130 H, Calcium 10.1, Total Bilirubin 0.2, AST 14 L, ALT 20, Alkaline Phosphatase 116, Total Protein 8.1 D, Albumin 3.0 L, Globulin 5.1 H, Albumin/Globulin Ratio 0.6 L 03/23/19 15:25: Lactate 0.5 03/24/19 06:31: WBC 10.0 D, RBC 3.84 L, Hgb 11.3 L, Hct 37.1 L, MCV 96.6 H, MCH 29.5, MCHC 30.5 L, RDW 14.3, Plt Count 471 H, MPV 8.5, Neut % (Auto) 87.7 H, Lymph % (Auto) 8.7 L, [place] % (Auto) 3.4, Eos % (Auto) 0.2, Baso % (Auto) 0.1, Neut # (Auto) 8.7 H, Lymph # (Auto) 0.9, [place] # (Auto) 0.3, Eos # (Auto) 0.0, Baso # (Auto) 0.0 03/24/19 06:31: Sodium 145, Potassium 3.9, Chloride 108 H, Carbon Dioxide 33 H, Anion Gap 7.9, BUN 20 H D, Creatinine 0.51 L, Estimated Creat Clear 122, Estimated GFR 169, Est GFR ( Amer) 205, Glucose 154 H, Calcium 9.5 Medical History: Reports:: BPH, Chronic Obstructive Pulmonary Disease (COPD), Seizures Denies:: Diabetes Mellitus Type 1, Diabetes Mellitus Type 2 Assessment and Plan (1) HCAP (healthcare-associated pneumonia) Current visit: No Status: Acute Category: Medical Code(s): J18.9 - Pneumonia, unspecified organism (2) Seizure disorder Current visit: No Status: Chronic Category: Medical Code(s): G40.909 - Epilepsy, unspecified, not intractable, without status epilepticus - Assessment and plan all Dx Assessment and Plan for all problems:: BASED ON PATIENT FACTORS, RECOMMEND VANCOMYCIN 1250 MG IV ONCE, FOLLOWED BY VANCOMYCIN 1000 MG IV Q12H. WILL OBTAIN VANCOMYCIN TROUGH LEVEL PRIOR TO 4TH DOSE. PHARMACY WILL FOLLOW DAILY AND ADJUST APPROPRIATE.
[2019-03-24 08:36] LABS: Lymphocytes % 9 % (10-50); Monocytes % 2 % (2-9); Neutrophils % 87 % (42-76); RBC Morphology Normal; Total Cells Counted 100
--- NOTE | 2019-03-24 10:28 | Pharmacy Consult Notes ---
[facility] Pharmacy VTE Monitoring - Patient Demographics Admission date: 03/23/19 Report Date: 03/24/19 Time: 10:28 Allergies/Adverse Reactions: Patient Allergies No Known Allergies Allergy (Verified 01/28/19 01:24) Height: 1.83 m Weight: 52.22 kg Patient Problems: Current Active Problems (Updated 03/24/19 @ 08:14 by Shiv Lopez MD) Pneumonia (Acute) - VTE Risk Labs: VTE Related Lab Results Hgb 11.3 g/dL (14.1-18.0) L 03/24/19 06:31 Hct 37.1 % (42.0-52.0) L 03/24/19 06:31 Plt Count 471 K/mm3 (142-424) H 03/24/19 06:31 BUN 20 mg/dL (7-18) H D 03/24/19 06:31 Creatinine 0.51 mg/dL (0.70-1.30) L 03/24/19 06:31 Estimated Creat Clear 122 mL/min (50-200) 03/24/19 06:31 VTE Score: 4 VTE Risk Level: Low Risk - Prophylaxis VTE Prophylaxis Ordered?: Yes Types of VTE Prophylaxis: TEDS Knee High Location of Applied Device: Bilateral Lower Extremeties
[2019-03-24 15:48] LABS: Microscopic, Urine URINE MICROSCOPIC (MICROSCOPIC)
[2019-03-24 15:55] LABS: Appearance,Urine CLEAR (Clear); Bilirubin,Urine Negative (Negative); Blood, Urine Negative (Negative); Color,Urine YELLOW (Yellow); Glucose,Urine (UA) Negative (Negative); Ketones,Urine Negative (Negative); Leukocyte Esterase,Urine Negative (Negative); Protein,Urine Negative (Negative); Urobilinogen,Urine 0.2 EU/dl (0.2)
[2019-03-24 16:02] LABS: Bacteria,Urine Trace /lpf; Mucus,Urine 1+ /lpf; Squamous Epithelial Cell,Urine Occasional #/hpf (0-5); WBC,Urine Occasional #/hpf (0-3)
--- NOTE | 2019-03-25 07:12 | Progress Note ---
Internal Medicine - PN: Subj *Date: 03/25/19 *Time: 07:11 Interval history: Patient has no complaints this morning. When I entered the room the patient appeared to be attempting to get out of bed his legs were hanging over the side of the bed. He was placed back in bed. He denies shortness of breath and actually states he feels "very good". He tells me he believes he may have had a seizure which is what led to him coming to the hospital. Exam Vital signs and Labs for Last 24 Hours: Temp Pulse Resp BP Pulse Ox 97.4 F L 76 18 122/68 96 03/25/19 04:39 03/25/19 04:39 03/25/19 04:39 03/25/19 04:39 03/25/19 04:39 Laboratory Results - last 24 hr 03/24/19 06:31: WBC 10.0 D, RBC 3.84 L, Hgb 11.3 L, Hct 37.1 L, MCV 96.6 H, MCH 29.5, MCHC 30.5 L, RDW 14.3, Plt Count 471 H, MPV 8.5, Neut % (Auto) 87.7 H, Lymph % (Auto) 8.7 L, [place] % (Auto) 3.4, Eos % (Auto) 0.2, Baso % (Auto) 0.1, Neut # (Auto) 8.7 H, Lymph # (Auto) 0.9, [place] # (Auto) 0.3, Eos # (Auto) 0.0, Baso # (Auto) 0.0, Total Counted 100, Neutrophils % (Manual) 87 H, Band Neutrophils % 2.0, Lymphocytes % (Manual) 9 L, Monocytes % (Manual) 2, Platelet Estimate Slight increase, RBC Morphology Normal 03/24/19 06:31: Sodium 145, Potassium 3.9, Chloride 108 H, Carbon Dioxide 33 H, Anion Gap 7.9, BUN 20 H D, Creatinine 0.51 L, Estimated Creat Clear 122, Estimated GFR 169, Est GFR ( Amer) 205, Glucose 154 H, Calcium 9.5 03/24/19 06:37: Total Valproic Acid 18.3 L 03/24/19 15:35: Urine Color Yellow, Urine Appearance Clear, Urine pH 6.0, Ur Specific [place] 1.020, Urine Protein Negative, Urine Glucose (UA) Negative, Urine Ketones Negative, Urine Blood Negative, Urine Nitrate Negative, Urine Bilirubin Negative, Urine Urobilinogen 0.2, Ur Leukocyte Esterase Negative, Urine WBC Occasional, Ur Squamous Epith Cells Occasional, Urine Bacteria Trace, Urine Mucus 1+ 03/25/19 06:00: Vancomycin Trough 8.4 L I & O for Last 24 hours: Intake & Output 03/22/19 03/23/19 03/24/19 03/25/19 11:59 11:59 11:59 11:59 Intake Total 1251 / 1251 2438 / 2438 Balance 1251 / 1251 2438 / 2438 Weight 115 lb 2 oz 115 lb 2.006 oz Narrative: Patient looks well and in no distress. He is not requiring supplemental oxygen. Lungs have diminished breath sounds at the bases. Heart has a regular rate and rhythm. Abdomen is thin and soft. G-tube is intact and tube feeds are infusing. Extremities are without edema Assessment and Plan (1) HCAP (healthcare-associated pneumonia) Current visit: No Status: Acute Category: Medical Code(s): J18.9 - Pneumonia, unspecified organism (2) Seizure disorder Current visit: No Status: Chronic Category: Medical Code(s): G40.909 - Epilepsy, unspecified, not intractable, without status epilepticus - Assessment and plan all Dx Assessment and Plan for all problems:: Patient will be discharged back to the care home today. Patient will be placed on oral antibiotics for his pneumonia.
--- NOTE | 2019-03-25 07:17 | Discharge Summary ---
General - General Admission date:: 03/23/19 Discharge date: 03/25/19 HPI HPI: Mr. Fountain is a chronically ill 53-year-old gentleman with weakness, debility, G-tube dependence, and seizure disorder who presented to the ER l yesterday from [facility] due to acute onset of some respiratory distress with O2 sats in the mid 70s. This story is quite similar to the history from his hospitalization earlier in the month from March 08 to March 11. Patient was evaluated in the emergency department and was found to be hypoxic. White blood cell count was elevated and CT scan showed persistence of pneumonia previously identified at his admission earlier in the month but pneumonia was now increased in size in the left lower lobe with some evidence of right lower lobe pneumonia as well. In addition to this the radiologist identifies some abnormal appearance to the bronchus suggestive of possible aspiration. Patient was admitted on broad-spectrum antibiotics. Since admission patient has been witnessed having apneic spells while asleep. Respiratory therapy notes this morning that when patient is asleep he appears to have difficulty protecting his airway and will have a long periods of apnea that correct once patient is aroused or awakened. This morning the patient is awake. He is able to answer some questions. He admits to a cough but cannot confirm any sputum production. He does not believe he is had any fevers. He denies shortness of breath and appears comfortable in his bed. He is not requiring supplemental oxygen. Hospital Course Hospital Course: Patient was admitted and observed. He did not have any fevers. He was hypoxic upon presentation to the emergency department but after admission to the floor remained on room air with sats in the mid to high 90s. Patient denied any respiratory symptoms other than cough. He was started on broad-spectrum antibiotics to cover his pneumonia. Respiratory therapy reported witnessed apnea the first evening the patient was admitted. However the following day nursing staff did not witness any apnea. BiPAP had been ordered for night but it was felt unnecessary for the patient by the evening of the . Physical exam only had diminished breath sounds in the bases. On the morning of the patient believed that he had possibly had a seizure. Patient's Depakene level was low. I did adjust the patient's Keppra by increasing the dose to 1000 mg twice daily. As patient was afebrile and breathing comfortably on room air he was discharged back to [facility]. Patient was discharged on Levaquin per G-tube. Mental status: Below average Rehab potential: Fair Prognosis: Good Objective Vital signs: Temp Pulse Resp BP Pulse Ox 97.4 F L 76 18 122/68 96 03/25/19 04:39 03/25/19 04:39 03/25/19 04:39 03/25/19 04:39 03/25/19 04:39 Results Completed studies during hospitalization [Text1]: Laboratory Results - last 48 hr 03/23/19 03/23/19 03/23/19 15:11 15:25 15:25 WBC 14.6 H RBC 4.13 L Hgb 12.2 L Hct 39.1 L MCV 94.8 H MCH 29.5 MCHC 31.1 L RDW 14.6 Plt Count 524 H MPV 8.1 Neut % (Auto) 81.9 H Lymph % (Auto) 9.1 L [place] % (Auto) 7.3 Eos % (Auto) 1.4 Baso % (Auto) 0.3 Neut # (Auto) 12.0 H Lymph # (Auto) 1.3 [place] # (Auto) 1.1 H Eos # (Auto) 0.2 Baso # (Auto) 0.0 Total Counted Neutrophils % (Manual) Band Neutrophils % Lymphocytes % (Manual) Monocytes % (Manual) Platelet Estimate RBC Morphology Specimen Source Left radial O2 % 4l ABG pH 7.41 ABG pCO2 62.1 H ABG pO2 52.6 L ABG HCO3 38.6 H ABG Total CO2 40.5 H ABG O2 Saturation 87 L* ABG Base Excess 13.9 H Syed Test Acceptable Sodium 144 Potassium 4.2 Chloride 105 Carbon Dioxide 36 H Anion Gap 7.2 BUN 28 H Creatinine 0.46 L Estimated Creat Clear 153 Estimated GFR 191 Est GFR ( Amer) 231 Glucose 130 H Lactate Calcium 10.1 Total Bilirubin 0.2 AST 14 L ALT 20 Alkaline Phosphatase 116 Total Protein 8.1 D Albumin 3.0 L Globulin 5.1 H Albumin/Globulin Ratio 0.6 L Urine Color Urine Appearance Urine pH Ur Specific [place] Urine Protein Urine Glucose (UA) Urine Ketones Urine Blood Urine Nitrate Urine Bilirubin Urine Urobilinogen Ur Leukocyte Esterase Urine WBC Ur Squamous Epith Cells Urine Bacteria Urine Mucus Vancomycin Trough Total Valproic Acid 03/23/19 03/24/19 03/24/19 15:25 06:31 06:31 WBC 10.0 D RBC 3.84 L Hgb 11.3 L Hct 37.1 L MCV 96.6 H MCH 29.5 MCHC 30.5 L RDW 14.3 Plt Count 471 H MPV 8.5 Neut % (Auto) 87.7 H Lymph % (Auto) 8.7 L [place] % (Auto) 3.4 Eos % (Auto) 0.2 Baso % (Auto) 0.1 Neut # (Auto) 8.7 H Lymph # (Auto) 0.9 [place] # (Auto) 0.3 Eos # (Auto) 0.0 Baso # (Auto) 0.0 Total Counted 100 Neutrophils % (Manual) 87 H Band Neutrophils % 2.0 Lymphocytes % (Manual) 9 L Monocytes % (Manual) 2 Platelet Estimate Slight increase RBC Morphology Normal Specimen Source O2 % ABG pH ABG pCO2 ABG pO2 ABG HCO3 ABG Total CO2 ABG O2 Saturation ABG Base Excess Syed Test Sodium 145 Potassium 3.9 Chloride 108 H Carbon Dioxide 33 H Anion Gap 7.9 BUN 20 H D Creatinine 0.51 L Estimated Creat Clear 122 Estimated GFR 169 Est GFR ( Amer) 205 Glucose 154 H Lactate 0.5 Calcium 9.5 Total Bilirubin AST ALT Alkaline Phosphatase Total Protein Albumin Globulin Albumin/Globulin Ratio Urine Color Urine Appearance Urine pH Ur Specific [place] Urine Protein Urine Glucose (UA) Urine Ketones Urine Blood Urine Nitrate Urine Bilirubin Urine Urobilinogen Ur Leukocyte Esterase Urine WBC Ur Squamous Epith Cells Urine Bacteria Urine Mucus Vancomycin Trough Total Valproic Acid 03/24/19 03/24/19 03/25/19 06:37 15:35 06:00 WBC RBC Hgb Hct MCV MCH MCHC RDW Plt Count MPV Neut % (Auto) Lymph % (Auto) [place] % (Auto) Eos % (Auto) Baso % (Auto) Neut # (Auto) Lymph # (Auto) [place] # (Auto) Eos # (Auto) Baso # (Auto) Total Counted Neutrophils % (Manual) Band Neutrophils % Lymphocytes % (Manual) Monocytes % (Manual) Platelet Estimate RBC Morphology Specimen Source O2 % ABG pH ABG pCO2 ABG pO2 ABG HCO3 ABG Total CO2 ABG O2 Saturation ABG Base Excess Syed Test Sodium Potassium Chloride Carbon Dioxide Anion Gap BUN Creatinine Estimated Creat Clear Estimated GFR Est GFR ( Amer) Glucose Lactate Calcium Total Bilirubin AST ALT Alkaline Phosphatase Total Protein Albumin Globulin Albumin/Globulin Ratio Urine Color Yellow Urine Appearance Clear Urine pH 6.0 Ur Specific [place] 1.020 Urine Protein Negative Urine Glucose (UA) Negative Urine Ketones Negative Urine Blood Negative Urine Nitrate Negative Urine Bilirubin Negative Urine Urobilinogen 0.2 Ur Leukocyte Esterase Negative Urine WBC Occasional Ur Squamous Epith Cells Occasional Urine Bacteria Trace Urine Mucus 1+ Vancomycin Trough 8.4 L Total Valproic Acid 18.3 L Labs on day of discharge: Labs from last 24 hours 03/25/19 03/24/19 03/24/19 06:00 15:35 06:37 WBC RBC Hgb Hct MCV MCH MCHC RDW Plt Count MPV Neut % (Auto) Lymph % (Auto) [place] % (Auto) Eos % (Auto) Baso % (Auto) Neut # (Auto) Lymph # (Auto) [place] # (Auto) Eos # (Auto) Baso # (Auto) Total Counted Neutrophils % (Manual) Band Neutrophils % Lymphocytes % (Manual) Monocytes % (Manual) Platelet Estimate RBC Morphology Sodium Potassium Chloride Carbon Dioxide Anion Gap BUN Creatinine Estimated Creat Clear Estimated GFR Est GFR ( Amer) Glucose Calcium Urine Color Yellow Urine Appearance Clear Urine pH 6.0 Ur Specific [place] 1.020 Urine Protein Negative Urine Glucose (UA) Negative Urine Ketones Negative Urine Blood Negative Urine Nitrate Negative Urine Bilirubin Negative Urine Urobilinogen 0.2 Ur Leukocyte Esterase Negative Urine WBC Occasional Ur Squamous Epith Cells Occasional Urine Bacteria Trace Urine Mucus 1+ Vancomycin Trough 8.4 L Total Valproic Acid 18.3 L 03/24/19 03/24/19 06:31 06:31 WBC 10.0 D RBC 3.84 L Hgb 11.3 L Hct 37.1 L MCV 96.6 H MCH 29.5 MCHC 30.5 L RDW 14.3 Plt Count 471 H MPV 8.5 Neut % (Auto) 87.7 H Lymph % (Auto) 8.7 L [place] % (Auto) 3.4 Eos % (Auto) 0.2 Baso % (Auto) 0.1 Neut # (Auto) 8.7 H Lymph # (Auto) 0.9 [place] # (Auto) 0.3 Eos # (Auto) 0.0 Baso # (Auto) 0.0 Total Counted 100 Neutrophils % (Manual) 87 H Band Neutrophils % 2.0 Lymphocytes % (Manual) 9 L Monocytes % (Manual) 2 Platelet Estimate Slight increase RBC Morphology Normal Sodium 145 Potassium 3.9 Chloride 108 H Carbon Dioxide 33 H Anion Gap 7.9 BUN 20 H D Creatinine 0.51 L Estimated Creat Clear 122 Estimated GFR 169 Est GFR ( Amer) 205 Glucose 154 H Calcium 9.5 Urine Color Urine Appearance Urine pH Ur Specific [place] Urine Protein Urine Glucose (UA) Urine Ketones Urine Blood Urine Nitrate Urine Bilirubin Urine Urobilinogen Ur Leukocyte Esterase Urine WBC Ur Squamous Epith Cells Urine Bacteria Urine Mucus Vancomycin Trough Total Valproic Acid DS: Diagnosis - Discharge Diagnosis (1) HCAP (healthcare-associated pneumonia) Status: Acute (2) Seizure disorder Status: Chronic Discharge Plan - Patient Discharge Instructions ACTIVITY: Continue current activity DIET: continue same diet Patient Instructions: Pneumonia-Adult - Follow up Plan Disposition: [facility] Home Medications: Home Medications Medication Instructions Recorded Confirmed Type Acetaminophen [Tylenol 500mg 500 mg RC NEEDED PRN 01/28/19 03/23/19 History tablet] Benzonatate [Benzonatate 100mg 100 mg G-TUBE TIDP PRN 01/28/19 03/23/19 History cap] Bisacodyl [Bisacodyl 10mg Supp] 10 mg RC DAILYP PRN 01/28/19 03/23/19 History Doxazosin Mesylate [Doxazosin 1mg 1 mg G-TUBE DAILY 01/28/19 03/23/19 History Tab] Folic Acid [Folic Acid 1mg tablet] 1 mg G-TUBE DAILY 01/28/19 03/23/19 History Gabapentin [Gabapentin 300mg Cap] 300 mg G-TUBE TID 01/28/19 03/23/19 History Ibuprofen [Ibuprofen 800mg 800 mg G-TUBE BID 01/28/19 03/23/19 History Tablet] Melatonin/Pyridoxine HCl (B6) 1 each G-TUBE HSP PRN 01/28/19 03/23/19 History [Melatonin 3 mg Tablet] Mirtazapine [Remeron 15mg tablet] 15 mg G-TUBE HS 01/28/19 03/23/19 History Mometasone/Formoterol [Dulera 200 2 puffs IH BID 01/28/19 03/23/19 History Mcg/5 Mcg Inhaler] Ondansetron [Zofran 4mg ODT] 4 mg PO Q6HP PRN 01/28/19 03/23/19 History Pyridoxine HCl (Vitamin B6) 50 mg G-TUBE DAILY 01/28/19 03/23/19 History [Pyridoxine HCl] Quetiapine Fumarate 100 mg G-TUBE BID 01/28/19 03/23/19 History Sennosides [Senna] 8.6 mg G-TUBE DAILY 01/28/19 03/23/19 History Sertraline HCl [Zoloft 100mg 200 mg G-TUBE DAILY 01/28/19 03/23/19 History tablet] Simethicone [Gas Relief] 80 mg G-TUBE Q4HP PRN 01/28/19 03/23/19 History Thiamine HCl 100 mg G-TUBE DAILY 01/28/19 03/23/19 History Tiotropium [place] [Spiriva 2 puff IH DAILY 01/28/19 03/23/19 History 18mcg/puff inhaler] Valproic Acid (As Sodium Salt) 500 mg G-TUBE BID 01/28/19 03/23/19 History [Valproic Acid] chlordiazePOXIDE HCl [Librium 10mg 10 mg G-TUBE TID 01/28/19 03/23/19 History Capsule] levETIRAcetam [Keppra] 750 mg G-TUBE BID 01/28/19 03/23/19 History Acetaminophen [Tylenol elixir 650 mg PO Q4HP PRN udc 01/29/19 03/23/19 Rx 325mg/10.15mL UDC] Furosemide [Lasix 20mg tablet] 20 mg G-TUBE DAILY 03/08/19 03/23/19 History Hydrocodone/Acetaminophen [[place] 1 each G-TUBE Q4HP PRN 03/08/19 03/23/19 History 5-325 Tablet] Ipratropium/Albuterol Sulfate 3 ml IH QIDP PRN 03/08/19 03/23/19 History [Duoneb 3mL neb] levoFLOXacin [Levaquin 750mg 750 mg G-TUBE DAILY #5 tab 03/25/19 Rx tablet] Prescriptions/Medication Reconciliation: New levoFLOXacin [Levaquin 750mg tablet] 750 mg G-TUBE DAILY #5 tab Continued Tiotropium [place] [Spiriva 18mcg/puff inhaler] 2 puff IH DAILY Ibuprofen [Ibuprofen 800mg Tablet] 800 mg G-TUBE BID Valproic Acid (As Sodium Salt) [Valproic Acid] 500 mg G-TUBE BID Thiamine HCl 100 mg G-TUBE DAILY Sertraline HCl [Zoloft 100mg tablet] 200 mg G-TUBE DAILY Sennosides [Senna] 8.6 mg G-TUBE DAILY Quetiapine Fumarate 100 mg G-TUBE BID Pyridoxine HCl (Vitamin B6) [Pyridoxine HCl] 50 mg G-TUBE DAILY Ondansetron [Zofran 4mg ODT] 4 mg PO Q6HP PRN PRN Reason: Nausea Mirtazapine [Remeron 15mg tablet] 15 mg G-TUBE HS Melatonin/Pyridoxine HCl (B6) [Melatonin 3 mg Tablet] 1 each G-TUBE HSP PRN PRN Reason: Sleep Gabapentin [Gabapentin 300mg Cap] 300 mg G-TUBE TID Folic Acid [Folic Acid 1mg tablet] 1 mg G-TUBE DAILY Doxazosin Mesylate [Doxazosin 1mg Tab] 1 mg G-TUBE DAILY chlordiazePOXIDE HCl [Librium 10mg Capsule] 10 mg G-TUBE TID Benzonatate [Benzonatate 100mg cap] 100 mg G-TUBE TIDP PRN PRN Reason: Cough Acetaminophen [Tylenol 500mg tablet] 500 mg RC NEEDED PRN PRN Reason: pain Ipratropium/Albuterol Sulfate [Duoneb 3mL neb] 3 ml IH QIDP PRN PRN Reason: Congestion Bisacodyl [Bisacodyl 10mg Supp] 10 mg RC DAILYP PRN PRN Reason: Constipation Simethicone [Gas Relief] 80 mg G-TUBE Q4HP PRN PRN Reason: Gas Pain And Discomfort Mometasone/Formoterol [Dulera 200 Mcg/5 Mcg Inhaler] 2 puffs IH BID Acetaminophen [Tylenol elixir 325mg/10.15mL UDC] 650 mg PO Q4HP PRN udc PRN Reason: As Needed For Fever Or Pain Hydrocodone/Acetaminophen [[place] 5-325 Tablet] 1 each G-TUBE Q4HP PRN PRN Reason: PAIN Furosemide [Lasix 20mg tablet] 20 mg G-TUBE DAILY Changed levETIRAcetam [Keppra] 1,000 mg G-TUBE BID #0
== END 2019-03-25 11:22 ==
LOC: ER 15:04 → 2ND 15:04 → INTOOBSV 18:44 → OBSVTOIN 18:44 → 2ND 18:45
PROVIDERS: ADMIT Family Medicine; ATTEND Internal Medicine Adolescent Medicine
DX: J18.9 Pneumonia, unspecified organism
CPT/HCPCS: 36415; 70450; 71250; 72125; 74019; 74020; 80048; 80053; 80164; 80202; 81001; 82803; 83605; 85007; 85025; 87040; 94640; 96365; 99282; G0378; J1956; J3370

== ENCOUNTER 2019-05-04 09:48 | Inpatient (IN) ==
[2019-05-04 10:13] LABS: Basophils # 0.1 K/mm3 (0-0.2); Basophils % 0.3 % (0.1-2.0); Eosinophils # 0.1 K/mm3 (0.0-0.4); Eosinophils % 0.4 % (0.1-12.0); Hematocrit 39.4 % (42.0-52.0); Hemoglobin 13.1 g/dL (14.1-18.0); Lymphocytes # 1.5 K/mm3 (0.7-4.5); Lymphocytes % 7.2 % (10-50); Mean Corpuscular HGB Conc 33.2 g/dL (31.8-35.4); Mean Corpuscular Volume 95.7 fl (80-94); Mean Platelet Volume 8.8 fl (7.4-10.4); Monocytes # 1.3 K/mm3 (0.1-1.0); Monocytes % 6.2 % (1.7-9.3); Neutrophils # 18.3 K/mm3 (1.8-7.8); Neutrophils % 85.8 % (37.0-80.0); Platelet Count 506 K/mm3 (142-424); Red Blood Count 4.11 M/mm3 (4.60-6.20); Red Cell Distribution Width 14.7 % (11.5-17.5); White Blood Count 21.3 K/mm3 (4.8-10.8)
[2019-05-04 10:15] LABS: ABG Base Excess 9.7 mmol/L (-2.4-2.3); ABG HCO3 33.8 mmhg (22.0-26.0); ABG Oxygen Saturation 94 % (90-100); ABG PH 7.44 mmol/L (7.35-7.45); ABG PO2 67.3 mmhg (80-100); ABG TCO2 35.4 mmhg (23-27)
[2019-05-04 10:16] LABS: Allen's Test Non Applicable
[2019-05-04 10:17] LABS: ABG PCO2 50.6 mmhg (35.0-45.0)
[2019-05-04 10:23] LABS: Alanine Aminotransferase 25 U/L (12-78); Albumin Level 3.2 gm/dL (3.4-5.0); Albumin/Globulin Ratio 0.6 (1.1-1.8); Alkaline Phosphatase 129 U/L (46-116); Anion Gap 9.7 mEq/L (5-15); Aspartate Amino Transferase 19 U/L (15-37); Bilirubin,Total 0.2 mg/dL (0.2-1.0); Blood Urea Nitrogen 30 mg/dL (7-18); Calcium 9.9 mg/dL (8.5-10.1); Carbon Dioxide 37 mmol/L (21.0-32.0); Chloride 104 mmol/L (98-107); Globulin 5.4 gm/dl (1.3-3.2); Glucose 137 mg/dL (74-106); Sodium 147 mmol/L (136-145); Total Protein,Serum 8.6 gm/dL (6.4-8.2)
--- NOTE | 2019-05-04 10:24 | Emergency Department Note ---
ED Disposition Clinical Impression: Community acquired pneumonia, COPD with exacerbation, Dehydration Disposition: Admitted As Inpatient Condition on Discharge: Serious Referrals: Shiv Hu MD [Primary Care Provider] - - Critical Care Critical Care Time: No Attestation: On 05/04/19, the high probability of a clinically significant, sudden or life threatening deterioration of the following system(s) required my full and direct attention, intervention and personal management. The time I documented below is in addition to time spent performing reported procedures but includes the following listed in this critical care notation. Medical Decision Making - Medical Records Medical records reviewed: Yes: I reviewed the patient's medical records. - Gene Inquiry Pt receiving controlled substance: No Vital Signs: 05/04/19 10:03 05/04/19 10:08 Temperature 101.1 F H Temperature Source Rectal Pulse Rate [Left Radial] 128 H 125 H Respiratory Rate 36 H Blood Pressure [Right Arm] 147/72 H 139/82 Blood Pressure Mean [Right Arm] 97 101 Blood Pressure Position [Right Arm] Sitting 02 Sat by Pulse Oximetry 94 L 95 Oxygen Delivery Method Nasal Cannula Nasal Cannula Oxygen Flow Rate (LPM) 4 4 - Lab Data Lab Results 05/04/19 09:50: WBC 21.3 H*, RBC 4.11 L, Hgb 13.1 L, Hct 39.4 L, MCV 95.7 H, MCH 31.8 H, MCHC 33.2, RDW 14.7, Plt Count 506 H, MPV 8.8, Neut % (Auto) 85.8 H, Lymph % (Auto) 7.2 L, [place] % (Auto) 6.2, Eos % (Auto) 0.4, Baso % (Auto) 0.3, Neut # (Auto) 18.3 H, Lymph # (Auto) 1.5, [place] # (Auto) 1.3 H, Eos # (Auto) 0.1, Baso # (Auto) 0.1, Total Counted 100, Neutrophils % (Manual) 82 H, Band Neutrophils % 4.0, Lymphocytes % (Manual) 6 L, Monocytes % (Manual) 3, Me tamyelocytes % 3.0 H, Myelocytes % 2 H, Platelet Estimate Normal, Hypochromasia 1+ 05/04/19 09:50: Sodium 147 H, Potassium 3.7, Chloride 104, Carbon Dioxide 37 H, Anion Gap 9.7, BUN 30 H, Creatinine 0.47 L, Estimated Creat Clear 148, Estimated GFR 185, Est GFR ( Amer) 224, Glucose 137 H, Calcium 9.9, Total Bilirubin 0.2, AST 19, ALT 25, Alkaline Phosphatase 129 H, Troponin I < 0.02, Total P rotein 8.6 H, Albumin 3.2 L, Globulin 5.4 H, Albumin/Globulin Ratio 0.6 L 05/04/19 09:50: B-Natriuretic Peptide 28 05/04/19 09:50: Total Valproic Acid 23.3 L 05/04/19 10:00: Specimen Source Left brachial, O2 % 4lpm nc, ABG pH 7.44, ABG pCO2 50.6 H, ABG pO2 67.3 L, ABG HCO3 33.8 H, ABG Total CO2 35.4 H, ABG O2 Saturation 94, ABG Base Excess 9.7 H, Syed Test Non applicable 05/04/19 10:08: Lactate 0.8 Result diagrams: 05/04/19 09:50 05/04/19 09:50 Orders (Tests/Meds): ED MEDICATIONS Generic Name Dose Route Start Last Admin Trade Name Freq PRN Reason Stop Dose Admin Azithromycin 500 mg/ Sodium 250 mls @ 250 mls/hr 05/04/19 10:00 05/04/19 11:00 Chloride IV 05/18/19 09:59 250 mls/hr 0900 PARDEEP Administration Protocol Ceftriaxone Sodium 2 gm/ 100 mls @ 200 mls/hr 05/04/19 10:00 05/04/19 10:26 Sodium Chloride IV 05/18/19 09:59 200 mls/hr Q12H PARDEEP Administration Protocol Sodium Chloride 10 ml 05/04/19 10:10 Saline Flush 10ml Syringe IV 06/03/19 10:09 NEEDED PRN Maintain IV Site Discontinued Medications Generic Name Dose Route Start Last Admin Trade Name Freq PRN Reason Stop Dose Admin Sodium Chloride 1,000 mls @ 999 mls/hr 05/04/19 10:00 05/04/19 10:25 Sod Chlor 0.9% 1000ml Bag IV 05/04/19 11:00 999 mls/hr .Q1H1M PARDEEP Administration ORDERS Category Date Time Status Ammonia Stat Lab 05/04/19 10:08 Received Blood Culture Stat Micro 05/04/19 10:07 Received Fever HPI - General Chief Complaint: Fever Stated Complaint: fever Time Seen by Provider: 05/04/19 10:07 Mode of Arrival: EMS Limitations: Language Barrier Description of Symptoms (Recalled from ER Triage Doc. by RN): to ed per squad pt resident of [facility] sent for eval due to fever and low o2 sat. pt with hx of anoxic brain injury. pt drowsy, disoriented to time and place. skin hot to touch. with with g tube in place. pt given tylenol bar captain. cpta 500cc NS per squad - History of Present Illness MD complaint: fever, malaise, weakness Onset (ago): unknown Temperature Source: axillary Associated symptoms: confusion Relieving factors: nothing Exacerbating factors: nothing - Related Data Home Medications Medication Instructions Recorded Confirmed Acetaminophen [Tylenol 500mg 500 mg RC NEEDED PRN 01/28/19 05/04/19 tablet] Benzonatate [Benzonatate 100mg 100 mg G-TUBE TIDP PRN 01/28/19 05/04/19 cap] Bisacodyl [Bisacodyl 10mg Supp] 10 mg RC DAILYP PRN 01/28/19 05/04/19 Doxazosin Mesylate [Doxazosin 1mg 1 mg G-TUBE DAILY 01/28/19 05/04/19 Tab] Folic Acid [Folic Acid 1mg tablet] 1 mg G-TUBE DAILY 01/28/19 05/04/19 Gabapentin [Gabapentin 300mg Cap] 300 mg G-TUBE TID 01/28/19 05/04/19 Ibuprofen [Ibuprofen 800mg 800 mg G-TUBE BID 01/28/19 05/04/19 Tablet] Melatonin/Pyridoxine HCl (B6) 1 each G-TUBE HSP PRN 01/28/19 05/04/19 [Melatonin 3 mg Tablet] Mirtazapine [Remeron 15mg tablet] 15 mg G-TUBE HS 01/28/19 05/04/19 Mometasone/Formoterol [Dulera 200 2 puffs IH BID 01/28/19 05/04/19 Mcg/5 Mcg Inhaler] Ondansetron [Zofran 4mg ODT] 4 mg PO Q6HP PRN 01/28/19 05/04/19 Pyridoxine HCl (Vitamin B6) 50 mg G-TUBE DAILY 01/28/19 05/04/19 [Pyridoxine HCl] Quetiapine Fumarate 100 mg G-TUBE BID 01/28/19 05/04/19 Sennosides [Senna] 8.6 mg G-TUBE DAILY 01/28/19 05/04/19 Sertraline HCl [Zoloft 100mg 200 mg G-TUBE DAILY 01/28/19 05/04/19 tablet] Simethicone [Gas Relief] 80 mg G-TUBE Q4HP PRN 01/28/19 05/04/19 Thiamine HCl 100 mg G-TUBE DAILY 01/28/19 05/04/19 Tiotropium [place] [Spiriva 2 puff IH DAILY 01/28/19 05/04/19 18mcg/puff inhaler] Valproic Acid (As Sodium Salt) 500 mg G-TUBE BID 01/28/19 05/04/19 [Valproic Acid] chlordiazePOXIDE HCl [Librium 10mg 10 mg G-TUBE TID 01/28/19 05/04/19 Capsule] Furosemide [Lasix 20mg tablet] 20 mg G-TUBE DAILY 03/08/19 05/04/19 Hydrocodone/Acetaminophen [[place] 1 each G-TUBE Q4HP PRN 03/08/19 05/04/19 5-325 Tablet] Ipratropium/Albuterol Sulfate 3 ml IH QIDP PRN 03/08/19 05/04/19 [Duoneb 3mL neb] Previous Rx's Medication Instructions Recorded Acetaminophen [Tylenol elixir 650 mg PO Q4HP PRN udc 01/29/19 325mg/10.15mL UDC] levETIRAcetam [Keppra] 1,000 mg G-TUBE BID #0 03/25/19 Allergies Allergy/AdvReac Type Severity Reaction Status Date / Time No Known Allergies Allergy Verified 01/28/19 01:24 [facility] History - Hepatitis A Screen Drug use history?: No High risk sexual behaviors?: No History of sexually transmitted infection?: No Currently employed?: No Childcare worker?: No Do you have indoor plumbing?: Yes Do you have electricity?: Yes Attestation statement:: This patient has been screened for Hepatitis A risk factors. I have reviewed the patient's past medical history: Yes Medical History: Reports:: BPH, Chronic Obstructive Pulmonary Disease (COPD), Seizures Denies:: Diabetes Mellitus Type 1, Diabetes Mellitus Type 2 Comment: G-tube placement - Social History Alcohol Intake: former Occupational Status: disabled Housing: [facility] Household Members: other Family Hx:: Unable to obtain (Patient is a poor historian and cannot recall) ROS Obtained: Yes Systems reviewed as appropriate & no additional complaints - Respiratory Respiratory: Yes chest congestion, Yes dyspnea, Yes wheezing - Neurologic Neurologic: Reports behavioral changes, Denies convulsions, Denies seizure-like activity Physical Exam - General General appearance: anxious, in distress - Head Head exam: atraumatic, normocephalic, normal inspection - Eye Eye exam: Present: normal appearance, PERRL, EOMI - ENT ENT exam: Present: mucous membranes dry - Neck Neck exam: Present: normal inspection, full ROM, trachea midline. Absent: meningismus, lymphadenopathy - Chest Chest inspection: Present: normal inspection, symmetric chest wall rise. Absent: tenderness - Respiratory Respiratory exam: Present: wheezes, accessory muscle use - Cardiovascular Cardiovascular exam: Present: normal rhythm, tachycardia, normal heart sounds. Absent: systolic murmur - Abdominal Exam Abdominal exam: Present: soft, normal bowel sounds. Absent: distention, tenderness, guarding - exam: Present: normal inspection, other (roe in place) - Extremities Exam Extremities exam: Present: normal inspection, normal capillary refill - Back Exam Back exam: Present: normal inspection - Neurological Exam Neurological exam: Present: other (chronic )
[2019-05-04 10:40] LABS: Lymphocytes % 6 % (10-50); Monocytes % 3 % (2-9); Myelocytes % 2 (0-1); Neutrophils % 82 % (42-76); Total Cells Counted 100
[2019-05-04 10:41] LABS: Hypochromasia 1+
[2019-05-04 13:04] LABS: Microscopic, Urine URINE MICROSCOPIC (MICROSCOPIC)
[2019-05-04 13:06] LABS: Appearance,Urine CLEAR (Clear); Bilirubin,Urine Negative (Negative); Blood, Urine Negative (Negative); Color,Urine YELLOW (Yellow); Glucose,Urine (UA) Negative (Negative); Ketones,Urine Negative (Negative); Leukocyte Esterase,Urine Negative (Negative); PH,Urine 8.5 (5.0-8.5); Protein,Urine Negative (Negative); Urobilinogen,Urine 0.2 EU/dl (0.2)
[2019-05-04 13:17] LABS: Bacteria,Urine Trace /lpf; Squamous Epithelial Cell,Urine Occasional #/hpf (0-5)
--- NOTE | 2019-05-04 17:39 | Electrocardiograph Report ---
APPROVED REPORT Exam: Resting ECG HR:124 bpm ECG Measurements Heart Rate 124 AXES AR 146 P 82 QRSd 78 QRS 109 QT 314 T83 QTc 451 <Conclusion> Sinus tachycardia Rightward axis Pulmonary disease pattern,Incomplete RBBB Abnormal ECG Electronically signed by : Agustin Richey, 05/04/2019 17:38:34
[2019-05-05 07:11] LABS: Basophils # 0.1 K/mm3 (0-0.2); Basophils % 0.3 % (0.1-2.0); Eosinophils # 0.1 K/mm3 (0.0-0.4); Eosinophils % 0.6 % (0.1-12.0); Lymphocytes # 3.4 K/mm3 (0.7-4.5); Lymphocytes % 21.2 % (10-50); Mean Corpuscular HGB Conc 31.3 g/dL (31.8-35.4); Mean Corpuscular Volume 97.4 fl (80-94); Mean Platelet Volume 7.6 fl (7.4-10.4); Monocytes # 1.2 K/mm3 (0.1-1.0); Monocytes % 7.5 % (1.7-9.3); Neutrophils # 11.4 K/mm3 (1.8-7.8); Neutrophils % 70.3 % (37.0-80.0); Platelet Count 507 K/mm3 (142-424); Red Cell Distribution Width 14.9 % (11.5-17.5); White Blood Count 16.2 K/mm3 (4.8-10.8)
[2019-05-05 07:17] LABS: Albumin Level 2.5 gm/dL (3.4-5.0); Albumin/Globulin Ratio 0.6 (1.1-1.8); Anion Gap 8.5 mEq/L (5-15); Bilirubin,Total 0.2 mg/dL (0.2-1.0); Calcium 9.3 mg/dL (8.5-10.1); Globulin 4.5 gm/dl (1.3-3.2); Phosphorous 2.7 mg/dL (2.4-4.9)
--- NOTE | 2019-05-05 07:45 | History & Physical Report ---
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 He is a full-time resident of the residential with G-tube, and has multiple issues with recurrent aspiration pneumonias. He was sent to the emergency department on the day of admission with mental status changes, fever, worsening tissue perfusion. In the emergency department he was found to meet criteria for sepsis. Admitted to hospital with broad-spectrum antibiotics and IV fluids. [facility] History I have reviewed the patient's past medical history: Yes Medical History: Reports:: BPH, Chronic Obstructive Pulmonary Disease (COPD), Dementia, Seizures Denies:: Diabetes Mellitus Type 1, Diabetes Mellitus Type 2 *Have you ever received a pneumonia vaccine?: Yes *Have you received a flu vaccine this season?: Yes Other Medical History: Reports: Liver Disease Comment:: Alcoholic encephalopathy, early onset Warnicke Korsakoff dementia, anoxic brain injury, G-tube status, chronic malnutrition with severe protein calorie malnutrition Amputation: No - *Social History Educational Level: Completed High School #Yrs smoked (if former smoker): 15 Alcohol Intake: former *Occupational Status:: disabled Housing: residential Household Members: other *Travel in the last 8 weeks: None Family Hx:: Unable to obtain Review of Systems - Review of Systems Review of systems:: unable to obtain - *Neurologic Reports behavioral changes, Denies seizure-like activity, Denies seizure-like activity Meds Home Medications Medication Instructions Recorded Confirmed Type Acetaminophen [Tylenol 500mg 500 mg RC NEEDED PRN 01/28/19 05/04/19 History tablet] Benzonatate [Benzonatate 100mg 100 mg G-TUBE TIDP PRN 01/28/19 05/04/19 History cap] Bisacodyl [Bisacodyl 10mg Supp] 10 mg RC DAILYP PRN 01/28/19 05/04/19 History Doxazosin Mesylate [Doxazosin 1mg 1 mg G-TUBE DAILY 01/28/19 05/04/19 History Tab] Folic Acid [Folic Acid 1mg tablet] 1 mg G-TUBE DAILY 01/28/19 05/04/19 History Gabapentin [Gabapentin 300mg Cap] 300 mg G-TUBE TID 01/28/19 05/04/19 History Ibuprofen [Ibuprofen 800mg 800 mg G-TUBE BID 01/28/19 05/04/19 History Tablet] Melatonin/Pyridoxine HCl (B6) 1 each G-TUBE HSP PRN 01/28/19 05/04/19 History [Melatonin 3 mg Tablet] Mirtazapine [Remeron 15mg tablet] 15 mg G-TUBE HS 01/28/19 05/04/19 History Mometasone/Formoterol [Dulera 200 2 puffs IH BID 01/28/19 05/04/19 History Mcg/5 Mcg Inhaler] Ondansetron [Zofran 4mg ODT] 4 mg PO Q6HP PRN 01/28/19 05/04/19 History Pyridoxine HCl (Vitamin B6) 50 mg G-TUBE DAILY 01/28/19 05/04/19 History [Pyridoxine HCl] Quetiapine Fumarate 100 mg G-TUBE BID 01/28/19 05/04/19 History Sennosides [Senna] 8.6 mg G-TUBE DAILY 01/28/19 05/04/19 History Sertraline HCl [Zoloft 100mg 200 mg G-TUBE DAILY 01/28/19 05/04/19 History tablet] Simethicone [Gas Relief] 80 mg G-TUBE Q4HP PRN 01/28/19 05/04/19 History Thiamine HCl 100 mg G-TUBE DAILY 01/28/19 05/04/19 History Tiotropium [place] [Spiriva 2 puff IH DAILY 01/28/19 05/04/19 History 18mcg/puff inhaler] Valproic Acid (As Sodium Salt) 500 mg G-TUBE BID 01/28/19 05/04/19 History [Valproic Acid] chlordiazePOXIDE HCl [Librium 10mg 10 mg G-TUBE TID 01/28/19 05/04/19 History Capsule] Acetaminophen [Tylenol elixir 650 mg PO Q4HP PRN udc 01/29/19 05/04/19 Rx 325mg/10.15mL UDC] Furosemide [Lasix 20mg tablet] 20 mg G-TUBE DAILY 03/08/19 05/04/19 History Hydrocodone/Acetaminophen [[place] 1 each G-TUBE Q4HP PRN 03/08/19 05/04/19 History 5-325 Tablet] Ipratropium/Albuterol Sulfate 3 ml IH QIDP PRN 03/08/19 05/04/19 History [Duoneb 3mL neb] levETIRAcetam [Keppra] 1,000 mg G-TUBE BID #0 03/25/19 05/04/19 Rx Allergies Allergy/AdvReac Type Severity Reaction Status Date / Time No Known Allergies Allergy Verified 01/28/19 01:24 Exam Vital signs and Labs for Last 24 Hours: Temp Pulse Resp BP Pulse Ox 98.0 F 82 19 112/70 96 05/05/19 00:00 05/05/19 00:00 05/05/19 00:00 05/05/19 00:00 05/05/19 00:00 Laboratory Results - last 24 hr 05/04/19 09:50: WBC 21.3 H*, RBC 4.11 L, Hgb 13.1 L, Hct 39.4 L, MCV 95.7 H, MCH 31.8 H, MCHC 33.2, RDW 14.7, Plt Count 506 H, MPV 8.8, Neut % (Auto) 85.8 H, Lymph % (Auto) 7.2 L, [place] % (Auto) 6.2, Eos % (Auto) 0.4, Baso % (Auto) 0.3, Neut # (Auto) 18.3 H, Lymph # (Auto) 1.5, [place] # (Auto) 1.3 H, Eos # (Auto) 0.1, Baso # (Auto) 0.1, Total Counted 100, Neutrophils % (Manual) 82 H, Band Neutrophils % 4.0, Lymphocytes % (Manual) 6 L, Monocytes % (Manual) 3, Metamyelocytes % 3.0 H, Myelocytes % 2 H, Platelet Estimate Normal, Hypochromasia 1+ 05/04/19 09:50: Sodium 147 H, Potassium 3.7, Chloride 104, Carbon Dioxide 37 H, Anion Gap 9.7, BUN 30 H, Creatinine 0.47 L, Estimated Creat Clear 148, Estimated GFR 185, Est GFR ( Amer) 224, Glucose 137 H, Calcium 9.9, Total Bilirubin 0.2, AST 19, ALT 25, Alkaline Phosphatase 129 H, Troponin I < 0.02, Total Protein 8.6 H, Albumin 3.2 L, Globulin 5.4 H, Albumin/Globulin Ratio 0.6 L 05/04/19 09:50: B-Natriuretic Peptide 28 05/04/19 09:50: Total Valproic Acid 23.3 L 05/04/19 10:00: Specimen Source Left brachial, O2 % 4lpm nc, ABG pH 7.44, ABG pCO2 50.6 H, ABG pO2 67.3 L, ABG HCO3 33.8 H, ABG Total CO2 35.4 H, ABG O2 Saturation 94, ABG Base Excess 9.7 H, Syed Test Non applicable 05/04/19 10:08: Lactate 0.8 05/04/19 10:08: Ammonia 58 H 05/04/19 12:00: Urine Color Yellow, Urine Appearance Clear, Urine pH 8.5, Ur Specific [place] 1.010, Urine Protein Negative, Urine Glucose (UA) Negative, Urine Ketones Negative, Urine Blood Negative, Urine Nitrate Negative, Urine Bilirubin Negative, Urine Urobilinogen 0.2, Ur Leukocyte Esterase Negative, Urine RBC None, Urine WBC None, Ur Squamous Epith Cells Occasional, Urine Bacteria Trace 05/05/19 06:33: Sodium 146 H, Potassium 3.5, Chloride 106, Carbon Dioxide 35 H, Anion Gap 8.5, BUN 14 D, Creatinine 0.41 L, Estimated Creat Clear 158, Estimated GFR 217, Est GFR ( Amer) 263, Glucose 131 H, Calcium 9.3, Phosphorus 2.7, Magnesium 1.8, Total Bilirubin 0.2, AST 16, ALT 20, Alkaline Phosphatase 103, Total Protein 7.0, Albumin 2.5 L D, Globulin 4.5 H, Albumin/Globulin Ratio 0.6 L I & O for Last 24 hours: Intake & Output 05/02/19 05/03/19 05/04/19 05/05/19 11:59 11:59 11:59 11:59 Intake Total 854 / 854 Output Total 850 / 850 Balance / Weight 120 lb 9 oz 121 lb 2 oz Narrative: Chronically ill-appearing cachectic white male with a G-tube. Poorly responsive to tactile and verbal stimuli. Skin clammy. Perfusion is diminished over baseline. ENT exam shows dry oral mucosa. Flat neck veins. Lungs have rhonchi. Bilaterally, no crackles. Heart rate tachycardic. G-tube site looks good. Abdomen is soft. No distal skin breakdown. Moves extremities spontaneously but neurologic exam is difficult because of his cognitive impairment. Assessment and Plan (1) Gastrojejunostomy tube status Current visit: Yes Status: Acute Category: Medical Code(s): Z93.4 - Other artificial openings of gastrointestinal tract status Hold tube feedings tonight. Close observation. (2) Severe protein-calorie malnutrition Current visit: Yes Status: Acute Category: Medical Code(s): E43 - Unspecified severe protein-calorie malnutrition Complicates all aspects of his care (3) Dehydration Current visit: Yes Status: Acute Category: Medical Code(s): E86.0 - Dehydration IV fluids, follow sepsis protocols if indicated (4) HCAP (healthcare-associated pneumonia) Current visit: No Status: Acute Category: Medical Code(s): J18.9 - Pneumonia, unspecified organism Broad-spectrum IV antibiotics (5) Hypernatremia Current visit: No Status: Acute Category: Medical Code(s): E87.0 - Hyper osmolality and hypernatremia Continue current IV fluid therapy, watch carefully (6) Hypokalemia Current visit: No Status: Acute Category: Medical Code(s): E87.6 - Hypokalemia Replace potassium as indicated (7) Low body mass index (BMI) Current visit: No Status: Chronic Category: Medical (8) Sepsis Current visit: No Status: Resolved Qualifiers: Sepsis type: sepsis due to unspecified organism Qualified Code(s): A41.9 - Sepsis, unspecified organism Category: Medical Code(s): A41.9 - Sepsis, unspecified organism
--- NOTE | 2019-05-05 07:49 | Progress Note ---
Internal Medicine - PN: Stacy *Date: 05/05/19 *Time: 07:48 Interval history: Patient tolerated IV fluids and antibiotics well overnight. Nurses report that he is more alert. Exam Vital signs and Labs for Last 24 Hours: Temp Pulse Resp BP Pulse Ox 98.0 F 82 19 112/70 96 05/05/19 00:00 05/05/19 00:00 05/05/19 00:00 05/05/19 00:00 05/05/19 00:00 Laboratory Results - last 24 hr 05/04/19 09:50: WBC 21.3 H*, RBC 4.11 L, Hgb 13.1 L, Hct 39.4 L, MCV 95.7 H, MCH 31.8 H, MCHC 33.2, RDW 14.7, Plt Count 506 H, MPV 8.8, Neut % (Auto) 85.8 H, Lymph % (Auto) 7.2 L, [place] % (Auto) 6.2, Eos % (Auto) 0.4, Baso % (Auto) 0.3, Neut # (Auto) 18.3 H, Lymph # (Auto) 1.5, [place] # (Auto) 1.3 H, Eos # (Auto) 0.1, Baso # (Auto) 0.1, Total Counted 100, Neutrophils % (Manual) 82 H, Band Neutrophils % 4.0, Lymphocytes % (Manual) 6 L, Monocytes % (Manual) 3, Metamyelocytes % 3.0 H, Myelocytes % 2 H, Platelet Estimate Normal, Hypochromasia 1+ 05/04/19 09:50: Sodium 147 H, Potassium 3.7, Chloride 104, Carbon Dioxide 37 H, Anion Gap 9.7, BUN 30 H, Creatinine 0.47 L, Estimated Creat Clear 148, Estimated GFR 185, Est GFR ( Amer) 224, Glucose 137 H, Calcium 9.9, Total Bilirubin 0.2, AST 19, ALT 25, Alkaline Phosphatase 129 H, Troponin I < 0.02, Total Protein 8.6 H, Albumin 3.2 L, Globulin 5.4 H, Albumin/Globulin Ratio 0.6 L 05/04/19 09:50: B-Natriuretic Peptide 28 05/04/19 09:50: Total Valproic Acid 23.3 L 05/04/19 10:00: Specimen Source Left brachial, O2 % 4lpm nc, ABG pH 7.44, ABG pCO2 50.6 H, ABG pO2 67.3 L, ABG HCO3 33.8 H, ABG Total CO2 35.4 H, ABG O2 Saturation 94, ABG Base Excess 9.7 H, Syed Test Non applicable 05/04/19 10:08: Lactate 0.8 05/04/19 10:08: Ammonia 58 H 05/04/19 12:00: Urine Color Yellow, Urine Appearance Clear, Urine pH 8.5, Ur Specific [place] 1.010, Urine Protein Negative, Urine Glucose (UA) Negative, Urine Ketones Negative, Urine Blood Negative, Urine Nitrate Negative, Urine Bilirubin Negative, Urine Urobilinogen 0.2, Ur Leukocyte Esterase Negative, Urine RBC None, Urine WBC None, Ur Squamous Epith Cells Occasional, Urine Bacteria Trace 05/05/19 06:33: Sodium 146 H, Potassium 3.5, Chloride 106, Carbon Dioxide 35 H, Anion Gap 8.5, BUN 14 D, Creatinine 0.41 L, Estimated Creat Clear 158, Estimated GFR 217, Est GFR ( Amer) 263, Glucose 131 H, Calcium 9.3, Phosphorus 2.7, Magnesium 1.8, Total Bilirubin 0.2, AST 16, ALT 20, Alkaline Phosphatase 103, Total Protein 7.0, Albumin 2.5 L D, Globulin 4.5 H, Albumin/Globulin Ratio 0.6 L I & O for Last 24 hours: Intake & Output 05/02/19 05/03/19 05/04/19 05/05/19 11:59 11:59 11:59 11:59 Intake Total 854 / 854 Output Total 850 / 850 Balance Weight 120 lb 9 oz 121 lb 2 oz Narrative: Patient is responsive to tactile and verbal stimuli. He is able to utter a for you words, garbled speech. But more at his baseline. Lungs have rhonchi throughout. Slightly better air entry than yesterday. G-tube site looks good, heart rate regular. Vital signs have improved. Distal skin perfusion looks better. Abdomen remains soft. Assessment and Plan (1) Gastrojejunostomy tube status Current visit: Yes Status: Acute Category: Medical Code(s): Z93.4 - Other artificial openings of gastrointestinal tract status (2) Severe protein-calorie malnutrition Current visit: Yes Status: Acute Category: Medical Code(s): E43 - Unspecified severe protein-calorie malnutrition (3) Dehydration Current visit: Yes Status: Acute Category: Medical Code(s): E86.0 - Dehydration (4) HCAP (healthcare-associated pneumonia) Current visit: No Status: Acute Category: Medical Code(s): J18.9 - Pneumonia, unspecified organism (5) Hypernatremia Current visit: No Status: Acute Category: Medical Code(s): E87.0 - Hyperosmolality and hypernatremia (6) Hypokalemia Current visit: No Status: Acute Category: Medical Code(s): E87.6 - Hypokalemia (7) Low body mass index (BMI) Current visit: No Status: Chronic Category: Medical (8) Sepsis Current visit: No Status: Resolved Qualifiers: Sepsis type: sepsis due to unspecified organism Qualified Code(s): A41.9 - Sepsis, unspecified organism Category: Medical Code(s): A41.9 - Sepsis, unspecified organism - Assessment and plan all Dx Assessment and Plan for all problems:: Overall patient is improving from his above problems. Hypernatremia is improving. Lactate levels have been unremarkable. Plan to continue IV antibiotics until we have culture results back. Given his improvement in mental status I will restart tube feedings per dietitian advice.
[2019-05-05 08:41] LABS: Hemoglobin 11.3 g/dL (14.1-18.0)
--- NOTE | 2019-05-05 10:26 | Pharmacy Consult Notes ---
[facility] Pharmacy VTE Monitoring - Patient Demographics Admission date: 05/04/19 Report Date: 05/05/19 Time: 10:26 Allergies/Adverse Reactions: Patient Allergies No Known Allergies Allergy (Verified 01/28/19 01:24) Height: 1.78 m Weight: 54.941 kg Patient Problems: Current Active Problems (This Medical Record has been edited. Action required.) Community acquired pneumonia (Acute) COPD with exacerbation (Acute) Dehydration (Acute) Sepsis (Acute) Gastrojejunostomy tube status (Acute) Severe protein-calorie malnutrition (Acute) - VTE Risk Labs: VTE Related Lab Results Hgb 11.3 g/dL (14.1-18.0) L D 05/05/19 06:33 Hct 36.0 % (42.0-52.0) L 05/05/19 06:33 Plt Count 507 K/mm3 (142-424) H 05/05/19 06:33 BUN 14 mg/dL (7-18) D 05/05/19 06:33 Creatinine 0.41 mg/dL (0.70-1.30) L 05/05/19 06:33 Estimated Creat Clear 158 mL/min (50-200) 05/05/19 06:33 Was VTE Risk Assessment Performed: Yes VTE Score: 4 VTE Risk Level: Low Risk - Prophylaxis VTE Prophylaxis Ordered?: Yes Types of VTE Prophylaxis: TEDS Knee High Location of Applied Device: Bilateral Lower Extremeties
--- NOTE | 2019-05-05 11:55 | Pharmacy Consult Notes ---
- Pharmacy Consult Date: 05/05/19 Time: 11:53 Referring provider: DR. DOHERTY Reason for Consult:: VANCOMYCIN DOSING Allergies and ADEs:: Allergies Allergy/AdvReac Type Severity Reaction Status Date / Time No Known Allergies Allergy Verified 01/28/19 01:24 Home Medications:: Home Medications Medication Instructions Recorded Confirmed Type Acetaminophen [Tylenol 500mg 500 mg PO NEEDED PRN 01/28/19 05/05/19 History tablet] Benzonatate [Benzonatate 100mg 100 mg G-TUBE TIDP PRN 01/28/19 05/04/19 History cap] Bisacodyl [Bisacodyl 10mg Supp] 10 mg RC DAILYP PRN 01/28/19 05/04/19 History Doxazosin Mesylate [Doxazosin 1mg 1 mg G-TUBE DAILY 01/28/19 05/04/19 History Tab] Folic Acid [Folic Acid 1mg tablet] 1 mg G-TUBE DAILY 01/28/19 05/04/19 History Gabapentin [Gabapentin 300mg Cap] 300 mg G-TUBE TID 01/28/19 05/04/19 History Ibuprofen [Ibuprofen 800mg 800 mg G-TUBE BID 01/28/19 05/04/19 History Tablet] Ondansetron [Zofran 4mg ODT] 4 mg PO Q6HP PRN 01/28/19 05/04/19 History Pyridoxine HCl (Vitamin B6) 50 mg G-TUBE DAILY 01/28/19 05/04/19 History [Pyridoxine HCl] Quetiapine Fumarate 100 mg G-TUBE BID 01/28/19 05/04/19 History Sennosides [Senna] 8.6 mg G-TUBE DAILY 01/28/19 05/04/19 History Sertraline HCl [Zoloft 100mg 200 mg G-TUBE DAILY 01/28/19 05/04/19 History tablet] Simethicone [Gas Relief] 80 mg G-TUBE Q4HP PRN 01/28/19 05/04/19 History Thiamine HCl 100 mg G-TUBE DAILY 01/28/19 05/04/19 History Tiotropium [place] [Spiriva 2 puff IH DAILY 01/28/19 05/04/19 History 18mcg/puff inhaler] Valproic Acid (As Sodium Salt) 500 mg G-TUBE BID 01/28/19 05/04/19 History [Valproic Acid] chlordiazePOXIDE HCl [Librium 10mg 10 mg G-TUBE TID 01/28/19 05/04/19 History Capsule] Acetaminophen [Tylenol elixir 650 mg PO Q4HP PRN udc 01/29/19 05/04/19 Rx 325mg/10.15mL UDC] Furosemide [Lasix 20mg tablet] 20 mg G-TUBE DAILY 03/08/19 05/04/19 History Hydrocodone/Acetaminophen [[place] 1 each G-TUBE Q4HP PRN 03/08/19 05/04/19 History 5-325 Tablet] Ipratropium/Albuterol Sulfate 3 ml IH Q6HP PRN 03/08/19 05/05/19 History [Duoneb 3mL neb] levETIRAcetam [Keppra] 1,000 mg G-TUBE BID #0 03/25/19 05/04/19 Rx Chlorhexidine Gluconate [Peridex] 1 appful MM Q6HP PRN 05/05/19 05/05/19 History Fluticasone/Vilanterol [Breo 1 puff IH DAILY 05/05/19 05/05/19 History Ellipta 200-25 Mcg INH] Lidocaine [Lidoderm 5% transdermal 1 each TP Q24H PRN 05/05/19 05/05/19 History patch] Melatonin 3 mg PO HS 05/05/19 05/05/19 History raNITIdine HCl [Ranitidine HCl] 150 mg PO BID 05/05/19 05/05/19 History Height: 1.78 m Weight: 54.941 kg Laboratory Results:: Laboratory Results - last 24 hr 05/04/19 12:00: Urine Color Yellow, Urine Appearance Clear, Urine pH 8.5, Ur Specific [place] 1.010, Urine Protein Negative, Urine Glucose (UA) Negative, Urine Ketones Negative, Urine Blood Negative, Urine Nitrate Negative, Urine Bilirubin Negative, Urine Urobilinogen 0.2, Ur Leukocyte Esterase Negative, Urine RBC None, Urine WBC None, Ur Squamous Epith Cells Occasional, Urine Bacteria Trace 05/05/19 06:33: WBC 16.2 H, RBC 3.70 L, Hgb 11.3 L D, Hct 36.0 L, MCV 97.4 H, MCH 30.5, MCHC 31.3 L, RDW 14.9, Plt Count 507 H, MPV 7.6, Neut % (Auto) 70.3, Lymph % (Auto) 21.2, [place] % (Auto) 7.5, Eos % (Auto) 0.6, Baso % (Auto) 0.3, Neut # (Auto) 11.4 H, Lymph # (Auto) 3.4, [place] # (Auto) 1.2 H, Eos # (Auto) 0.1, Baso # (Auto) 0.1 05/05/19 06:33: Sodium 146 H, Potassium 3.5, Chloride 106, Carbon Dioxide 35 H, Anion Gap 8.5, BUN 14 D, Creatinine 0.41 L, Estimated Creat Clear 158, Estimated GFR 217, Est GFR ( Amer) 263, Glucose 131 H, Calcium 9.3, Phosphorus 2.7, Magnesium 1.8, Total Bilirubin 0.2, AST 16, ALT 20, Alkaline Phosphatase 103, Total Protein 7.0, Albumin 2.5 L D, Globulin 4.5 H, Albumin/Globulin Ratio 0.6 L Medical History: Reports:: BPH, Chronic Obstructive Pulmonary Disease (COPD), Dementia, Seizures Denies:: Diabetes Mellitus Type 1, Diabetes Mellitus Type 2 Assessment and Plan (1) Gastrojejunostomy tube status Current visit: Yes Status: Acute Category: Medical Code(s): Z93.4 - Other artificial openings of gastrointestinal tract status (2) Severe protein-calorie malnutrition Current visit: Yes Status: Acute Category: Medical Code(s): E43 - Unspecified severe protein-calorie malnutrition (3) Dehydration Current visit: Yes Status: Acute Category: Medical Code(s): E86.0 - Dehydration (4) HCAP (healthcare-associated pneumonia) Current visit: No Status: Acute Category: Medical Code(s): J18.9 - Pneumonia, unspecified organism (5) Hypernatremia Current visit: No Status: Acute Category: Medical Code(s): E87.0 - Hyperosmolality and hypernatremia (6) Hypokalemia Current visit: No Status: Acute Category: Medical Code(s): E87.6 - Hypokalemia (7) Low body mass index (BMI) Current visit: No Status: Chronic Category: Medical (8) Sepsis Current visit: No Status: Resolved Qualifiers: Sepsis type: sepsis due to unspecified organism Qualified Code(s): A41.9 - Sepsis, unspecified organism Category: Medical Code(s): A41.9 - Sepsis, unspecified organism - Assessment and plan all Dx Assessment and Plan for all problems:: BASED ON PATIENT FACTORS, RECOMMEND VANCOMYCIN 1 GM IV Q8H. WILL OBTAIN VANCOMYCIN TROUGH LEVEL PRIOR TO 4TH DOSE. PHARMACY WILL FOLLOW DAILY AND ADJUST APPROPRIATE.
[2019-05-05 12:09] LABS: Eosinophils % 1 % (0-3); Lymphocytes % 26 % (10-50); Monocytes % 7 % (2-9); Neutrophils % 66 % (42-76); RBC Morphology Normal; Total Cells Counted 100
[2019-05-06 06:55] LABS: Basophils # 0.1 K/mm3 (0-0.2); Basophils % 0.5 % (0.1-2.0); Eosinophils # 0.4 K/mm3 (0.0-0.4); Hematocrit 35.4 % (42.0-52.0); Hemoglobin 11.3 g/dL (14.1-18.0); Lymphocytes # 2.2 K/mm3 (0.7-4.5); Mean Corpuscular HGB Conc 31.8 g/dL (31.8-35.4); Mean Corpuscular Volume 95.4 fl (80-94); Mean Platelet Volume 7.2 fl (7.4-10.4); Monocytes # 0.7 K/mm3 (0.1-1.0); Monocytes % 6.7 % (1.7-9.3); Neutrophils # 6.7 K/mm3 (1.8-7.8); Neutrophils % 66.7 % (37.0-80.0); Platelet Count 565 K/mm3 (142-424); Red Blood Count 3.71 M/mm3 (4.60-6.20); Red Cell Distribution Width 14.9 % (11.5-17.5)
--- NOTE | 2019-05-06 08:44 | Progress Note ---
Internal Medicine - PN: Subj *Date: 05/06/19 *Time: 08:43 Interval history: Patient denies shortness of breath this morning. Attempts to reinitiate tube feeds have been unsuccessful so far due to high residuals. Exam Vital signs and Labs for Last 24 Hours: Temp Pulse Resp BP Pulse Ox 97.7 F 90 18 114/66 97 05/06/19 07:55 05/06/19 07:55 05/06/19 07:55 05/06/19 07:55 05/06/19 07:55 Laboratory Results - last 24 hr 05/05/19 06:33: Total Counted 100, Neutrophils % (Manual) 66, Lymphocytes % (Manual) 26, Monocytes % (Manual) 7, Eosinophils % (Manual) 1, Platelet Estimate Slight increase, RBC Morphology Normal 05/06/19 06:40: WBC 10.0 D, RBC 3.71 L, Hgb 11.3 L, Hct 35.4 L, MCV 95.4 H, MCH 30.3, MCHC 31.8, RDW 14.9, Plt Count 565 H, MPV 7.2 L, Neut % (Auto) 66.7, Lymph % (Auto) 22.0, [place] % (Auto) 6.7, Eos % (Auto) 4.0, Baso % (Auto) 0.5, Neut # (Auto) 6.7, Lymph # (Auto) 2.2, [place] # (Auto) 0.7, Eos # (Auto) 0.4, Baso # (Auto) 0.1 05/06/19 06:40: Sodium 141, Potassium 4.0, Chloride 102, Carbon Dioxide 35 H, Anion Gap 8.0, BUN 7 D, Creatinine 0.36 L, Estimated Creat Clear 182, Estimated GFR 252, Est GFR ( Amer) 305, Glucose 115 H, Calcium 9.0 I & O for Last 24 hours: Intake & Output 05/03/19 05/04/19 05/05/19 05/06/19 11:59 11:59 11:59 11:59 Intake Total 2013 3928 / 3928 Output Total 850 / 850 3550 / 3550 Balance 1164 / 1164 378 / 378 Weight 120 lb 9 oz 121 lb 1.987 oz 122 lb 8 oz Narrative: He is in no distress. Lungs have rhonchi in the left base but improved somewhat with coughing but it do not clearly resolved. Heart has a regular rate and rhythm. Assessment and Plan (1) HCAP (healthcare-associated pneumonia) Current visit: No Status: Acute Category: Medical Code(s): J18.9 - Pneumonia, unspecified organism (2) Gastrojejunostomy tube status Current visit: Yes Status: Acute Category: Medical Code(s): Z93.4 - Other artificial openings of gastrointestinal tract status (3) Severe protein-calorie malnutrition Current visit: Yes Status: Acute Category: Medical Code(s): E43 - Unspecified severe protein-calorie malnutrition (4) Dehydration Current visit: Yes Status: Acute Category: Medical Code(s): E86.0 - Dehydration (5) Hypernatremia Current visit: No Status: Acute Category: Medical Code(s): E87.0 - Hyperosmolality and hypernatremia (6) Hypokalemia Current visit: No Status: Acute Category: Medical Code(s): E87.6 - Hypokalemia (7) Low body mass index (BMI) Current visit: No Status: Chronic Category: Medical (8) Sepsis Current visit: No Status: Resolved Qualifiers: Sepsis type: sepsis due to unspecified organism Qualified Code(s): A41.9 - Sepsis, unspecified organism Category: Medical Code(s): A41.9 - Sepsis, unspecified organism - Assessment and plan all Dx Assessment and Plan for all problems:: 1. Continue IV antibiotics 2. I will add Reglan intravenously to see if that aids with ability to initiate tube feeds
--- NOTE | 2019-05-06 15:04 | Pharmacy Consult Notes ---
- Pharmacy Consult Date: 05/06/19 Time: 15:03 Referring provider: DR. DOHERTY Reason for Consult:: VANCOMYCIN TROUGH LEVEL Allergies and ADEs:: Allergies Allergy/AdvReac Type Severity Reaction Status Date / Time No Known Allergies Allergy Verified 01/28/19 01:24 Home Medications:: Home Medications Medication Instructions Recorded Confirmed Type Acetaminophen [Tylenol 500mg 500 mg PO NEEDED PRN 01/28/19 05/05/19 History tablet] Benzonatate [Benzonatate 100mg 100 mg G-TUBE TIDP PRN 01/28/19 05/04/19 History cap] Bisacodyl [Bisacodyl 10mg Supp] 10 mg RC DAILYP PRN 01/28/19 05/04/19 History Doxazosin Mesylate [Doxazosin 1mg 1 mg G-TUBE DAILY 01/28/19 05/04/19 History Tab] Folic Acid [Folic Acid 1mg tablet] 1 mg G-TUBE DAILY 01/28/19 05/04/19 History Gabapentin [Gabapentin 300mg Cap] 300 mg G-TUBE TID 01/28/19 05/04/19 History Ibuprofen [Ibuprofen 800mg 800 mg G-TUBE BID 01/28/19 05/04/19 History Tablet] Ondansetron [Zofran 4mg ODT] 4 mg PO Q6HP PRN 01/28/19 05/04/19 History Pyridoxine HCl (Vitamin B6) 50 mg G-TUBE DAILY 01/28/19 05/04/19 History [Pyridoxine HCl] Quetiapine Fumarate 100 mg G-TUBE BID 01/28/19 05/04/19 History Sennosides [Senna] 8.6 mg G-TUBE DAILY 01/28/19 05/04/19 History Sertraline HCl [Zoloft 100mg 200 mg G-TUBE DAILY 01/28/19 05/04/19 History tablet] Simethicone [Gas Relief] 80 mg G-TUBE Q4HP PRN 01/28/19 05/04/19 History Thiamine HCl 100 mg G-TUBE DAILY 01/28/19 05/04/19 History Tiotropium [place] [Spiriva 2 puff IH DAILY 01/28/19 05/04/19 History 18mcg/puff inhaler] Valproic Acid (As Sodium Salt) 500 mg G-TUBE BID 01/28/19 05/04/19 History [Valproic Acid] chlordiazePOXIDE HCl [Librium 10mg 10 mg G-TUBE TID 01/28/19 05/04/19 History Capsule] Acetaminophen [Tylenol elixir 650 mg PO Q4HP PRN udc 01/29/19 05/04/19 Rx 325mg/10.15mL UDC] Furosemide [Lasix 20mg tablet] 20 mg G-TUBE DAILY 03/08/19 05/04/19 History Hydrocodone/Acetaminophen [[place] 1 each G-TUBE Q4HP PRN 03/08/19 05/04/19 History 5-325 Tablet] Ipratropium/Albuterol Sulfate 3 ml IH Q6HP PRN 03/08/19 05/05/19 History [Duoneb 3mL neb] levETIRAcetam [Keppra] 1,000 mg G-TUBE BID #0 03/25/19 05/04/19 Rx Chlorhexidine Gluconate [Peridex] 1 appful MM Q6HP PRN 05/05/19 05/05/19 History Fluticasone/Vilanterol [Breo 1 puff IH DAILY 05/05/19 05/05/19 History Ellipta 200-25 Mcg INH] Lidocaine [Lidoderm 5% transdermal 1 each TP Q24H PRN 05/05/19 05/05/19 History patch] Melatonin 3 mg PO HS 05/05/19 05/05/19 History raNITIdine HCl [Ranitidine HCl] 150 mg PO BID 05/05/19 05/05/19 History Height: 1.78 m Weight: 55.565 kg Laboratory Results:: Laboratory Results - last 24 hr 05/06/19 06:40: WBC 10.0 D, RBC 3.71 L, Hgb 11.3 L, Hct 35.4 L, MCV 95.4 H, MCH 30.3, MCHC 31.8, RDW 14.9, Plt Count 565 H, MPV 7.2 L, Neut % (Auto) 66.7, Lymph % (Auto) 22.0, [place] % (Auto) 6.7, Eos % (Auto) 4.0, Baso % (Auto) 0.5, Neut # (Auto) 6.7, Lymph # (Auto) 2.2, [place] # (Auto) 0.7, Eos # (Auto) 0.4, Baso # (Auto) 0.1 05/06/19 06:40: Sodium 141, Potassium 4.0, Chloride 102, Carbon Dioxide 35 H, Anion Gap 8.0, BUN 7 D, Creatinine 0.36 L, Estimated Creat Clear 182, Estimated GFR 252, Est GFR ( Amer) 305, Glucose 115 H, Calcium 9.0 05/06/19 14:20: Vancomycin Trough 13.6 Medical History: Reports:: BPH, Chronic Obstructive Pulmonary Disease (COPD), [place], Seizures Denies:: Diabetes Mellitus Type 1, Diabetes Mellitus Type 2 Assessment and Plan (1) HCAP (healthcare-associated pneumonia) Current visit: No Status: Acute Category: Medical Code(s): J18.9 - Pneumonia, unspecified organism (2) Gastrojejunostomy tube status Current visit: Yes Status: Acute Category: Medical Code(s): Z93.4 - Other artificial openings of gastrointestinal tract status (3) Severe protein-calorie malnutrition Current visit: Yes Status: Acute Category: Medical Code(s): E43 - Unspecified severe protein-calorie malnutrition (4) Dehydration Current visit: Yes Status: Acute Category: Medical Code(s): E86.0 - Dehydration (5) Hypernatremia Current visit: No Status: Acute Category: Medical Code(s): E87.0 - Hyperosmolality and hypernatremia (6) Hypokalemia Current visit: No Status: Acute Category: Medical Code(s): E87.6 - Hypokalemia (7) Low body mass index (BMI) Current visit: No Status: Chronic Category: Medical (8) Sepsis Current visit: No Status: Resolved Qualifiers: Sepsis type: sepsis due to unspecified organism Qualified Code(s): A41.9 - Sepsis, unspecified organism Category: Medical Code(s): A41.9 - Sepsis, unspecified organism - Assessment and plan all Dx Assessment and Plan for all problems:: BASED ON PATIENT FACTORS AND VANCOMYCIN TROUGH LEVEL OF 13.6, RECOMMEND CONTINUING CURRENT DOSE OF VANCOMYCIN 1GM EVERY 8 HOURS. PHARMACY WILL CONTINUE TO MONITOR AND ADJUST DOSE APPROPRIATE. -JOB BUSTAMANTE PHARMD
--- NOTE | 2019-05-07 08:45 | Progress Note ---
Internal Medicine - PN: Subj *Date: 05/07/19 *Time: 08:44 Interval history: Patient does not have any complaints this morning and he denies shortness of breath as well as cough. There is been some difficulty getting his tube feeds restarted due to high residuals. Exam Vital signs and Labs for Last 24 Hours: Temp Pulse Resp BP Pulse Ox 97.8 F 85 17 128/78 98 05/07/19 04:00 05/07/19 04:00 05/07/19 04:00 05/07/19 04:00 05/07/19 04:00 Laboratory Results - last 24 hr 05/06/19 14:20: Vancomycin Trough 13.6 I & O for Last 24 hours: Intake & Output 05/04/19 05/05/19 05/06/19 05/07/19 11:59 11:59 11:59 11:59 Intake Total 2013 3928 / 3928 2964 / 2964 Output Total 850 / 850 3550 / 3550 3145 / 3145 Balance 1164 / 1164 378 / 378 -181 / -181 Weight 120 lb 9 oz 121 lb 1.987 oz 122 lb 8 oz 122 lb 6 oz Microbiology Reports for the Last 24 Hours: Microbiology 05/04/19 10:07 Blood Blood Culture - Preliminary NO GROWTH AFTER 48 HOURS 05/04/19 10:07 Blood Blood Culture - Preliminary NO GROWTH AFTER 48 HOURS Narrative: Patient looks comfortable and shows no signs of respiratory distress. Lung exam reveals clear lungs except for faint rales at the left lung base. Heart has a regular rate and rhythm. Tube feed is currently infusing Assessment and Plan (1) HCAP (healthcare-associated pneumonia) Current visit: No Status: Acute Category: Medical Code(s): J18.9 - Pneumonia, unspecified organism (2) Gastrojejunostomy tube status Current visit: Yes Status: Acute Category: Medical Code(s): Z93.4 - Other artificial openings of gastrointestinal tract status (3) Severe protein-calorie malnutrition Current visit: Yes Status: Acute Category: Medical Code(s): E43 - Unspecified severe protein-calorie malnutrition (4) Dehydration Current visit: Yes Status: Acute Category: Medical Code(s): E86.0 - Dehydration (5) Hypernatremia Current visit: No Status: Acute Category: Medical Code(s): E87.0 - Hyperosmolality and hypernatremia (6) Hypokalemia Current visit: No Status: Acute Category: Medical Code(s): E87.6 - Hypokalemia (7) Low body mass index (BMI) Current visit: No Status: Chronic Category: Medical (8) Sepsis Current visit: No Status: Resolved Qualifiers: Sepsis type: sepsis due to unspecified organism Qualified Code(s): A41.9 - Sepsis, unspecified organism Category: Medical Code(s): A41.9 - Sepsis, unspecified organism - Assessment and plan all Dx Assessment and Plan for all problems:: 1. Continue antibiotics 2. Reattempt initiation of tube feeds.
--- NOTE | 2019-05-07 11:10 | Progress Note ---
Internal Medicine - PN: Subj *Date: 05/07/19 *Time: 11:09 Exam Vital signs and Labs for Last 24 Hours: Temp Pulse Resp BP Pulse Ox 98.8 F 92 H 20 105/77 L 95 05/07/19 08:00 05/07/19 08:00 05/07/19 08:00 05/07/19 08:00 05/07/19 08:00 Laboratory Results - last 24 hr 05/06/19 14:20: Vancomycin Trough 13.6 I & O for Last 24 hours: Intake & Output 05/04/19 05/05/19 05/06/19 05/07/19 23:59 23:59 23:59 23:59 Intake Total 734 / 854 2464 / 2464 4470 / 4470 1238 / 1238 Output Total 750 / 750 2800 / 2800 3250 / 3250 995 / 995 Balance -16 / 104 -336 / -336 1220 / 1220 243 / 243 Weight 54.686 kg 54.941 kg 55.565 kg 55.508 kg Microbiology Reports for the Last 24 Hours: Microbiology 05/04/19 10:07 Blood Blood Culture - Preliminary NO GROWTH AFTER 48 HOURS 05/04/19 10:07 Blood Blood Culture - Preliminary NO GROWTH AFTER 48 HOURS Assessment and Plan (1) HCAP (healthcare-associated pneumonia) Current visit: No Status: Acute Category: Medical Code(s): J18.9 - Pneumonia, unspecified organism (2) Gastrojejunostomy tube status Current visit: Yes Status: Acute Category: Medical Code(s): Z93.4 - Other artificial openings of gastrointestinal tract status (3) Severe protein-calorie malnutrition Current visit: Yes Status: Acute Category: Medical Code(s): E43 - Unsp ecified severe protein-calorie malnutrition (4) Dehydration Current visit: Yes Status: Acute Category: Medical Code(s): E86.0 - Dehydration (5) Hypernatremia Current visit: No Status: Acute Category: Medical Code(s): E87.0 - Hyperosmolality and hypernatremia (6) Hypokalemia Current visit: No Status: Acute Category: Medical Code(s): E87.6 - Hypokalemia (7) Low body mass index (BMI) Current visit: No Status: Chronic Category: Medical (8) Sepsis Current visit: No Status: Resolved Qualifiers: Sepsis type: sepsis due to unspecified organism Qualified Code(s): A41.9 - Sepsis, unspecified organism Category: Medical Code(s): A41.9 - Sepsis, unspecified organism The patient's infection will respond to the chosen ABx?: Yes Is the patient receiving the right drug, dose, and route?: Yes Could a more targeted ABx be ordered?: No
--- NOTE | 2019-05-08 10:54 | Discharge Summary ---
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 He is a full-time resident of the senior care with G-tube, and has multiple issues with recurrent aspiration pneumonias. He was sent to the emergency department on the day of admission with mental status changes, fever, worsening tissue perfusion. In the emergency department he was found to meet criteria for sepsis. Admitted to hospital with broad-spectrum antibiotics and IV fluids. Hospital Course Hospital Course: Mr. Fountain was admitted with criteria meeting sepsis. Initiated on broad- spectrum antibiotics with improvement clinically. Has remained afebrile for the past 2 days. Difficulty reinitiating tube feeds however tolerating gradual resumption. Patient's electrolyte disturbances responded to fluid resuscitation. Blood pressure has been stable. Oxygen requirement stable. Overall doing much better. Ultimately diagnosed with right lower lobe pneumonia. Plan to continue antibiotics in the outpatient setting. Can transition to ciprofloxacin per tube. Additionally, plan to increase tube feeds gradually up to goal. Only change to diet is to increase free water flushes to 150 cc every 4 hours (previously 100 cc every 4 hours). Denies N/V. having loose stools. no CP, BAEL, fevers. Medically stable for DC to [facility] Objective Vital signs: Temp Pulse Resp BP Pulse Ox 97.9 F 112 H 16 148/87 H 97 05/08/19 07:58 05/08/19 07:58 05/08/19 07:58 05/08/19 07:58 05/08/19 07:58 no acute distress, thin, cachectic, chronically ill appearing - *Routine HEENT Exam Head: Present: normocephalic, atraumatic Eye: Present: EOMI, PERRL ENT: Present: mucous membranes moist - *Routine Neck Exam Present: supple, full ROM. Absent: JVD - *Routine Respiratory Exam Present: CTA bilaterally. Absent: prolonged expiratory phase, wheezes - *Routine Cardiovascular Exam Present: RRR, Normal S1. Absent: murmur - *Routine Abdominal Exam Present: soft, normoactive bowel sounds Comments: G-tube CDI - *Routine Extremities Exam Absent: cyanosis, clubbing, edema Comments: thin Results Labs on day of discharge: Preliminary micro results at discharge 05/04/19 10:07 Blood Culture - Preliminary Blood NO GROWTH AFTER 48 HOURS 05/04/19 10:07 Blood Culture - Preliminary Blood NO GROWTH AFTER 48 HOURS DS: Diagnosis - Discharge Diagnosis (1) HCAP (healthcare-associated pneumonia) Status: Acute (2) Gastrojejunostomy tube status Status: Chronic (3) Severe protein-calorie malnutrition Status: Chronic (4) Dehydration Status: Resolved (5) Hypernatremia Status: Resolved (6) Hypokalemia Status: Resolved (7) Low body mass index (BMI) Status: Chronic (8) Sepsis Status: Resolved Discharge Plan - Patient Discharge Instructions ACTIVITY: Continue current activity DIET: continue same diet Patient Instructions: Pneumonia-Adult, DI for Dehydration -- Adult, DI for Pneumonia -- Adult, DI for Sepsis -- Adult - Follow up Plan Disposition: [facility] Home Medications: Home Medications Medication Instructions Recorded Confirmed Type Acetaminophen [Tylenol 500mg 500 mg PO NEEDED PRN 01/28/19 05/05/19 History tablet] Benzonatate [Benzonatate 100mg 100 mg G-TUBE TIDP PRN 01/28/19 05/04/19 History cap] Bisacodyl [Bisacodyl 10mg Supp] 10 mg RC DAILYP PRN 01/28/19 05/04/19 History Doxazosin Mesylate [Doxazosin 1mg 1 mg G-TUBE DAILY 01/28/19 05/04/19 History Tab] Folic Acid [Folic Acid 1mg tablet] 1 mg G-TUBE DAILY 01/28/19 05/04/19 History Gabapentin [Gabapentin 300mg Cap] 300 mg G-TUBE TID 01/28/19 05/04/19 History Ibuprofen [Ibuprofen 800mg 800 mg G-TUBE BID 01/28/19 05/04/19 History Tablet] Ondansetron [Zofran 4mg ODT] 4 mg PO Q6HP PRN 01/28/19 05/04/19 History Pyridoxine HCl (Vitamin B6) 50 mg G-TUBE DAILY 01/28/19 05/04/19 History [Pyridoxine HCl] Quetiapine Fumarate 100 mg G-TUBE BID 01/28/19 05/04/19 History Sennosides [Senna] 8.6 mg G-TUBE DAILY 01/28/19 05/04/19 History Sertraline HCl [Zoloft 100mg 200 mg G-TUBE DAILY 01/28/19 05/04/19 History tablet] Simethicone [Gas Relief] 80 mg G-TUBE Q4HP PRN 01/28/19 05/04/19 History Thiamine HCl 100 mg G-TUBE DAILY 01/28/19 05/04/19 History Tiotropium [place] [Spiriva 2 puff IH DAILY 01/28/19 05/04/19 History 18mcg/puff inhaler] Valproic Acid (As Sodium Salt) 500 mg G-TUBE BID 01/28/19 05/04/19 History [Valproic Acid] chlordiazePOXIDE HCl [Librium 10mg 10 mg G-TUBE TID 01/28/19 05/04/19 History Capsule] Acetaminophen [Tylenol elixir 650 mg PO Q4HP PRN udc 01/29/19 05/04/19 Rx 325mg/10.15mL UDC] Furosemide [Lasix 20mg tablet] 20 mg G-TUBE DAILY 03/08/19 05/04/19 History Hydrocodone/Acetaminophen [[place] 1 each G-TUBE Q4HP PRN 03/08/19 05/04/19 History 5-325 Tablet] Ipratropium/Albuterol Sulfate 3 ml IH Q6HP PRN 03/08/19 05/05/19 History [Duoneb 3mL neb] levETIRAcetam [Keppra] 1,000 mg G-TUBE BID #0 03/25/19 05/04/19 Rx Chlorhexidine Gluconate [Peridex] 1 appful MM Q6HP PRN 05/05/19 05/05/19 History Fluticasone/Vilanterol [Breo 1 puff IH DAILY 05/05/19 05/05/19 History Ellipta 200-25 Mcg INH] Lidocaine [Lidoderm 5% transdermal 1 each TP Q24H PRN 05/05/19 05/05/19 History patch] Melatonin 3 mg PO HS 05/05/19 05/05/19 History raNITIdine HCl [Ranitidine HCl] 150 mg PO BID 05/05/19 05/05/19 History Ciprofloxacin [Ciprofloxacin 750 mg PO BID 5 Days #75 ml 05/08/19 Rx 500mg/5ml Oral Susp] Prescriptions/Medication Reconciliation: Continued Tiotropium [place] [Spiriva 18mcg/puff inhaler] 2 puff IH DAILY Ibuprofen [Ibuprofen 800mg Tablet] 800 mg G-TUBE BID Valproic Acid (As Sodium Salt) [Valproic Acid] 500 mg G-TUBE BID Thiamine HCl 100 mg G-TUBE DAILY Sertraline HCl [Zoloft 100mg tablet] 200 mg G-TUBE DAILY Sennosides [Senna] 8.6 mg G-TUBE DAILY Quetiapine Fumarate 100 mg G-TUBE BID Pyridoxine HCl (Vitamin B6) [Pyridoxine HCl] 50 mg G-TUBE DAILY Ondansetron [Zofran 4mg ODT] 4 mg PO Q6HP PRN PRN Reason: Nausea Gabapentin [Gabapentin 300mg Cap] 300 mg G-TUBE TID Folic Acid [Folic Acid 1mg tablet] 1 mg G-TUBE DAILY Doxazosin Mesylate [Doxazosin 1mg Tab] 1 mg G-TUBE DAILY chlordiazePOXIDE HCl [Librium 10mg Capsule] 10 mg G-TUBE TID Benzonatate [Benzonatate 100mg cap] 100 mg G-TUBE TIDP PRN PRN Reason: Cough Acetaminophen [Tylenol 500mg tablet] 500 mg PO NEEDED PRN PRN Reason: pain Ipratropium/Albuterol Sulfate [Duoneb 3mL neb] 3 ml IH Q6HP PRN PRN Reason: Congestion levETIRAcetam [Keppra] 1,000 mg G-TUBE BID #0 Melatonin 3 mg PO HS Lidocaine [Lidoderm 5% transdermal patch] 1 each TP Q24H PRN PRN Reason: PAIN raNITIdine HCl [Ranitidine HCl] 150 mg PO BID Fluticasone/Vilanterol [Breo Ellipta 200-25 Mcg INH] 1 puff IH DAILY Chlorhexidine Gluconate [Peridex] 1 appful MM Q6HP PRN PRN Reason: Dry Mouth Bisacodyl [Bisacodyl 10mg Supp] 10 mg RC DAILYP PRN PRN Reason: Constipation Simethicone [Gas Relief] 80 mg G-TUBE Q4HP PRN PRN Reason: Gas Pain And Discomfort Acetaminophen [Tylenol elixir 325mg/10.15mL UDC] 650 mg PO Q4HP PRN udc PRN Reason: As Needed For Fever Or Pain Hydrocodone/Acetaminophen [[place] 5-325 Tablet] 1 each G-TUBE Q4HP PRN PRN Reason: PAIN Furosemide [Lasix 20mg tablet] 20 mg G-TUBE DAILY - Problem Reconciliation Problems Reviewed?: Yes
== END 2019-05-08 13:30 | DRG 193 ==
LOC: ER 09:48 → 2ND 11:21
PROVIDERS: ADMIT Internal Medicine Adolescent Medicine; ATTEND Internal Medicine Adolescent Medicine
CPT/HCPCS: 36415; 71010; 71045; 80048; 80053; 80164; 80202; 81001; 82140; 82803; 83605; 83735; 83880; 84100; 84484; 85007; 85025; 87040; 93005; 94761; 96365; 96367; 96375; 99285; J0456; J2543; J3370

== ENCOUNTER 2019-05-11 20:33 | Inpatient (IN) ==
--- NOTE | 2019-05-11 21:04 | Emergency Department Note ---
ED Disposition Clinical Impression: History of ureteral obstruction, MERI (acute kidney injury) Disposition: Admitted as Observation Condition on Discharge: Good Referrals: Shiv Hu MD [Primary Care Provider] - Time of Disposition: 23:10 - Critical Care Critical Care Time: No Attestation: On 05/11/19, the high probability of a clinically significant, sudden or life threatening deterioration of the following system(s) required my full and direct attention, intervention and personal management. The time I documented below is in addition to time spent performing reported procedures but includes the following listed in this critical care notation. Medical Decision Making - Medical Records Medical records reviewed: Yes: I reviewed the patient's medical records. - Gene Inquiry Pt receiving controlled substance: No Gene was queried for this patient: No Vital Signs: 05/11/19 20:37 Temperature 98.2 F Temperature Source Oral Pulse Rate [Right Brachial] 80 Respiratory Rate 20 Blood Pressure [Right Arm] 143/63 H Blood Pressure Mean [Right Arm] 89 Blood Pressure Source [Right Arm] Automatic Cuff Blood Pressure Position [Right Arm] Sitting 02 Sat by Pulse Oximetry 100 Oxygen Delivery Method Nasal Cannula Oxygen Flow Rate (LPM) 2 - Lab Data Lab results reviewed: Yes: I reviewed the patient's lab results. Lab Results 05/11/19 21:05: WBC 8.9, RBC 3.59 L, Hgb 10.7 L, Hct 34.0 L, MCV 94.6 H, MCH 29.7, MCHC 31.4 L, RDW 15.3, Plt Count 684 H, MPV 7.1 L, Neut % (Auto) 62.4, Lymph % (Auto) 22.2, [place] % (Auto) 7.9, Eos % (Auto) 7.2, Baso % (Auto) 0.4, Neut # (Auto) 5.5, Lymph # (Auto) 2.0, [place] # (Auto) 0.7, Eos # (Auto) 0.6 H, Baso # (Auto) 0.0 05/11/19 21:05: Sodium 136, Potassium 4.3, Chloride 100, Carbon Dioxide 29, Anion Gap 11.3, BUN 44 H, Creatinine 3.74 H, Estimated Creat Clear 17, Estimated GFR 17 L*, Est GFR ( Amer) 20 L, Glucose 110 H, Calcium 9.0, Total Bilirubin 0.2, AST 30, ALT 14, Alkaline Phosphatase 84, Total Protein 7.1, Albumin 2.7 L, Globulin 4.4 H, Albumin/Globulin Ratio 0.6 L 05/11/19 21:21: Urine Color Yellow, Urine Appearance Clear, Urine pH 6.0, Ur Specific [place] 1.015, Urine Protein 1+, Urine Glucose (UA) Negative, Urine Ketones Negative, Urine Blood Negative, Urine Nitrate Negative, Urine Bilirubin Negative, Urine Urobilinogen 0.2, Ur Leukocyte Esterase Negative, Urine WBC Occasional, Ur Squamous Epith Cells Occasional, Urine Bacteria Trace Result diagrams: 05/11/19 21:05 05/11/19 21:05 Orders (Tests/Meds): ED MEDICATIONS Generic Name Dose Route Start Last Admin Trade Name Freq PRN Reason Stop Dose Admin Sodium Chloride 1,000 mls @ 2,000 mls/hr 05/11/19 21:30 Sod Chlor 0.9% 1000ml Bag IV 05/11/19 21:59 .Q30M PARDEEP Discontinued Medications Generic Name Dose Route Start Last Admin Trade Name Freq PRN Reason Stop Dose Admin Sodium Chloride 1,000 mls @ 999 mls/hr 05/11/19 21:30 Sod Chlor 0.9% 1000ml Bag IV 05/11/19 22:30 .Q1H1M PARDEEP ORDERS Category Date Time Status CT abdomen pelvis wo con Stat Cat Scan 05/11/19 21:07 Taken - CT Data CT Scan: Abdomen, Pelvis Time Received: 23:07 (recently passed stone ureteral calculus) ED CT Reviewed: Yes: I discussed the CT results w/the radiologist - Physician Consults Physician Consulted: juanjo Time: 23:08 Reason -: Admission Medical Decision Narrative: catheter placement, 400 cc of clear usie urine output General Adult HPI - General Chief complaint: Urogenital-Male Stated complaint: No voiding for 2-4days Time Seen by Provider: 05/11/19 21:01 Mode of Arrival: EMS Source of Information: Patient Limitations: No Limitations Description of Symptoms (Recalled from ER Triage Doc. by RN): group home staff states the pt had not voided in 3/4 days, they did blood work and he had a high creatinine and BUN. - Related Data Home Medications Medication Instructions Recorded Confirmed Acetaminophen [Tylenol 500mg 500 mg PO NEEDED PRN 01/28/19 05/11/19 tablet] Benzonatate [Benzonatate 100mg 100 mg G-TUBE TIDP PRN 01/28/19 05/11/19 cap] Bisacodyl [Bisacodyl 10mg Supp] 10 mg RC DAILYP PRN 01/28/19 05/11/19 Doxazosin Mesylate [Doxazosin 1mg 1 mg G-TUBE DAILY 01/28/19 05/11/19 Tab] Folic Acid [Folic Acid 1mg tablet] 1 mg G-TUBE DAILY 01/28/19 05/11/19 Gabapentin [Gabapentin 300mg Cap] 300 mg G-TUBE TID 01/28/19 05/11/19 Ibuprofen [Ibuprofen 800mg 800 mg G-TUBE BID 01/28/19 05/11/19 Tablet] Ondansetron [Zofran 4mg ODT] 4 mg PO Q6HP PRN 01/28/19 05/11/19 Pyridoxine HCl (Vitamin B6) 50 mg G-TUBE DAILY 01/28/19 05/11/19 [Pyridoxine HCl] Quetiapine Fumarate 100 mg G-TUBE BID 01/28/19 05/11/19 Sennosides [Senna] 8.6 mg G-TUBE DAILY 01/28/19 05/11/19 Sertraline HCl [Zoloft 100mg 200 mg G-TUBE DAILY 01/28/19 05/11/19 tablet] Simethicone [Gas Relief] 80 mg G-TUBE Q4HP PRN 01/28/19 05/11/19 Thiamine HCl 100 mg G-TUBE DAILY 01/28/19 05/11/19 Tiotropium [place] [Spiriva 2 puff IH DAILY 01/28/19 05/11/19 18mcg/puff inhaler] Valproic Acid (As Sodium Salt) 500 mg G-TUBE BID 01/28/19 05/11/19 [Valproic Acid] chlordiazePOXIDE HCl [Librium 10mg 10 mg G-TUBE TID 01/28/19 05/11/19 Capsule] Furosemide [Lasix 20mg tablet] 20 mg G-TUBE DAILY 03/08/19 05/11/19 Hydrocodone/Acetaminophen [[place] 1 each G-TUBE Q4HP PRN 03/08/19 05/11/19 5-325 Tablet] Ipratropium/Albuterol Sulfate 3 ml IH Q6HP PRN 03/08/19 05/11/19 [Duoneb 3mL neb] Chlorhexidine Gluconate [Peridex] 1 appful MM Q6HP PRN 05/05/19 05/11/19 Fluticasone/Vilanterol [Breo 1 puff IH DAILY 05/05/19 05/05/19 Ellipta 200-25 Mcg INH] Lidocaine [Lidoderm 5% transdermal 1 each TP Q24H PRN 05/05/19 05/11/19 patch] Melatonin 3 mg PO HS 05/05/19 05/11/19 raNITIdine HCl [Ranitidine HCl] 150 mg PO BID 05/05/19 05/11/19 Ciprofloxacin [Ciprofloxacin 750 mg PO BID 05/11/19 05/11/19 500mg/5ml Oral Susp] Previous Rx's Medication Instructions Recorded Acetaminophen [Tylenol elixir 650 mg PO Q4HP PRN udc 01/29/19 325mg/10.15mL UDC] levETIRAcetam [Keppra] 1,000 mg G-TUBE BID #0 03/25/19 Allergies Allergy/AdvReac Type Severity Reaction Status Date / Time No Known Allergies Allergy Verified 05/11/19 20:50 [facility] History - Hepatitis A Screen Drug use history?: No High risk sexual behaviors?: No History of sexually transmitted infection?: No Currently employed?: No Childcare worker?: No Do you have indoor plumbing?: Yes Do you have electricity?: Yes Attestation statement:: This patient has been screened for Hepatitis A risk factors. I have reviewed the patient's past medical history: Yes Medical History: Reports:: BPH, Chronic Obstructive Pulmonary Disease (COPD), Dementia, Seizures Denies:: Diabetes Mellitus Type 1, Diabetes Mellitus Type 2 Other Medical History: Reports: Liver Disease Comment: Alcoholic encephalopathy, early onset Warnicke Korsakoff dementia, anoxic brain injury, G-tube status, chronic malnutrition with severe protein calorie malnutrition Amputation: No Comment: G-tube placement - Social History #Yrs smoked (if former smoker): 15 Alcohol Intake: former Occupational Status: disabled Housing: snf Household Members: other Family Hx:: Unable to obtain ROS Obtained: Yes All systems reviewed & no additional complaints - Constitutional Constitutional: Denies lethargy - Cardiovascular Cardiovascular: Denies chest pain, Denies chest pain at rest - Gastrointestinal Gastrointestingal: Denies: abdominal pain - Musculoskeletal Musculoskeletal: Reports back pain - Integumentary/Breasts Skin/Breast: Denies rash, Denies skin pain - Neurologic Neurologic: Reports other (cva) - Hematologic/Lymphatic Henatologic/Lymphatic: Denies easy bleeding, Denies easy bruising Physical Exam - General General appearance: alert, in no apparent distress - Head Head exam: atraumatic, normocephalic, normal inspection - Eye Eye exam: Present: normal appearance, PERRL, EOMI - ENT ENT exam: Present: normal exam, normal oropharynx, mucous membranes moist, TM's normal bilaterally, normal external ear exam - Neck Neck exam: Present: normal inspection, full ROM, trachea midline. Absent: meningismus, lymphadenopathy - Chest Chest inspection: Present: normal inspection - Respiratory Respiratory exam: Present: normal lung sounds bilaterally. Absent: respiratory distress - Cardiovascular Cardiovascular exam: Present: regular rate, normal rhythm. Absent: JVD - Abdominal Exam Abdominal exam: Present: soft, distention, other (suprapubic) - Extremities Exam Extremities exam: Present: normal inspection, full ROM, normal capillary refill. Absent: calf tenderness - Back Exam Back exam: Present: normal inspection - Neurological Exam Neurological exam: Present: alert, CN II-XII intact, normal gait, other (oriented to place). Absent: oriented X3 - Psychiatric Psychiatric exam: Present: flat affect - Skin Skin exam: Present: warm, dry, intact, normal color
[2019-05-11 21:17] LABS: Basophils % 0.4 % (0.1-2.0); Eosinophils # 0.6 K/mm3 (0.0-0.4); Eosinophils % 7.2 % (0.1-12.0); Hemoglobin 10.7 g/dL (14.1-18.0); Lymphocytes % 22.2 % (10-50); Mean Corpuscular HGB Conc 31.4 g/dL (31.8-35.4); Mean Corpuscular Volume 94.6 fl (80-94); Mean Platelet Volume 7.1 fl (7.4-10.4); Monocytes # 0.7 K/mm3 (0.1-1.0); Monocytes % 7.9 % (1.7-9.3); Neutrophils # 5.5 K/mm3 (1.8-7.8); Neutrophils % 62.4 % (37.0-80.0); Red Blood Count 3.59 M/mm3 (4.60-6.20); Red Cell Distribution Width 15.3 % (11.5-17.5); White Blood Count 8.9 K/mm3 (4.8-10.8)
[2019-05-11 21:20] LABS: Platelet Count 684 K/mm3 (142-424)
[2019-05-11 21:25] LABS: Albumin Level 2.7 gm/dL (3.4-5.0); Albumin/Globulin Ratio 0.6 (1.1-1.8); Anion Gap 11.3 mEq/L (5-15); Bilirubin,Total 0.2 mg/dL (0.2-1.0); Globulin 4.4 gm/dl (1.3-3.2); Total Protein,Serum 7.1 gm/dL (6.4-8.2)
[2019-05-11 21:33] LABS: Microscopic, Urine URINE MICROSCOPIC (MICROSCOPIC)
[2019-05-11 22:08] LABS: Bacteria,Urine Trace /lpf; Squamous Epithelial Cell,Urine Occasional #/hpf (0-5); WBC,Urine Occasional #/hpf (0-3)
[2019-05-11 22:12] LABS: Appearance,Urine CLEAR (Clear); Bilirubin,Urine Negative (Negative); Blood, Urine Negative (Negative); Color,Urine YELLOW (Yellow); Glucose,Urine (UA) Negative (Negative); Ketones,Urine Negative (Negative); Leukocyte Esterase,Urine Negative (Negative); Protein,Urine 1+ (Negative); Specific Gravity, Urine 1.015 (1.005-1.030); Urobilinogen,Urine 0.2 EU/dl (0.2)
[2019-05-12 07:01] LABS: Basophils # 0.1 K/mm3 (0-0.2); Basophils % 0.5 % (0.1-2.0); Eosinophils # 0.6 K/mm3 (0.0-0.4); Eosinophils % 4.8 % (0.1-12.0); Hematocrit 35.3 % (42.0-52.0); Hemoglobin 11.3 g/dL (14.1-18.0); Lymphocytes # 1.5 K/mm3 (0.7-4.5); Lymphocytes % 12.6 % (10-50); Mean Corpuscular Volume 94.8 fl (80-94); Mean Platelet Volume 7.4 fl (7.4-10.4); Monocytes # 1.1 K/mm3 (0.1-1.0); Monocytes % 9.1 % (1.7-9.3); Neutrophils # 8.7 K/mm3 (1.8-7.8); Neutrophils % 73.1 % (37.0-80.0); Platelet Count 644 K/mm3 (142-424); Red Blood Count 3.73 M/mm3 (4.60-6.20); Red Cell Distribution Width 15.3 % (11.5-17.5); White Blood Count 11.9 K/mm3 (4.8-10.8)
--- NOTE | 2019-05-12 07:25 | History & Physical Report ---
*Admission Date: 05/11/19 *Chief complaint: abnormal labs from [place] *History of present illness: Mr. 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 [facility] the [facility] with [facility], and has multiple issues with recurrent aspiration pneumonias. Was recently seen a week ago with a pneumonia and treated during admission with Zosyn and vancomycin. Was transitioned after a few days to ciprofloxacin to complete course for his infection as an outpatient with oral medication. Had labs obtained at the [facility] on Tuesday which showed abnormal elevation in creatinine. Baseline for patient is approximately 0.3-0.4. Creatinine obtained Tuesday was reportedly a 3.6 with a BUN in the low 40s. He was sent to the ER for further evaluation. Patient has had no other symptoms that were reported at that time however upon presentation to the ER, they were informed that the patient had had decreased urine output for 3 to 4 days. He was admitted to medicine for further management after lab work showed renal failure with creatinine of 3.7. On assessment this morning, patient appears at his baseline, alert and oriented, answering questions. Denies any complaints. Encarnacion in place with clear urine draining. [facility] History I have reviewed the patient's past medical history: Yes Medical History: Reports:: BPH, Chronic Obstructive Pulmonary Disease (COPD), Dementia, Seizures Denies:: Cancer, Diabetes Mellitus Type 1, Diabetes Mellitus Type 2, MRSA *Have you ever received a pneumonia vaccine?: (UNABLE TO OBTAIN SECONDARY TO MENTAL STATUS) *Have you received a flu vaccine this season?: (UNABLE TO OBTAIN SECONDARY TO MENTAL STATUS) Other Medical History: Reports: Liver Disease Amputation: No - *Social History #Yrs smoked (if former smoker): 15 Alcohol Intake: former *Occupational Status:: disabled Housing: [facility] Household Members: other *Travel in the last 8 weeks: None Family Hx:: Unable to obtain Review of Systems - Review of Systems Review of systems:: pertinent systems reviewed and negative unless documented below - *Neurologic Reports other (cva) Meds Home Medications Medication Instructions Recorded Confirmed Type Acetaminophen [Tylenol 500mg 500 mg PO NEEDED PRN 01/28/19 05/11/19 History tablet] Benzonatate [Benzonatate 100mg 100 mg G-TUBE TIDP PRN 01/28/19 05/11/19 History cap] Bisacodyl [Bisacodyl 10mg Supp] 10 mg RC DAILYP PRN 01/28/19 05/11/19 History Doxazosin Mesylate [Doxazosin 1mg 1 mg G-TUBE DAILY 01/28/19 05/11/19 History Tab] Folic Acid [Folic Acid 1mg tablet] 1 mg G-TUBE DAILY 01/28/19 05/11/19 History Gabapentin [Gabapentin 300mg Cap] 300 mg G-TUBE TID 01/28/19 05/11/19 History Ibuprofen [Ibuprofen 800mg 800 mg G-TUBE BID 01/28/19 05/11/19 History Tablet] Ondansetron [Zofran 4mg ODT] 4 mg PO Q6HP PRN 01/28/19 05/11/19 History Pyridoxine HCl (Vitamin B6) 50 mg G-TUBE DAILY 01/28/19 05/11/19 History [Pyridoxine HCl] Quetiapine Fumarate 100 mg G-TUBE BID 01/28/19 05/11/19 History Sennosides [Senna] 8.6 mg G-TUBE DAILY 01/28/19 05/11/19 History Sertraline HCl [Zoloft 100mg 200 mg G-TUBE DAILY 01/28/19 05/11/19 History tablet] Simethicone [Gas Relief] 80 mg G-TUBE Q4HP PRN 01/28/19 05/11/19 History Thiamine HCl 100 mg G-TUBE DAILY 01/28/19 05/11/19 History Tiotropium [place] [Spiriva 2 puff IH DAILY 01/28/19 05/11/19 History 18mcg/puff inhaler] Valproic Acid (As Sodium Salt) 500 mg G-TUBE BID 01/28/19 05/11/19 History [Valproic Acid] chlordiazePOXIDE HCl [Librium 10mg 10 mg G-TUBE TID 01/28/19 05/11/19 History Capsule] Acetaminophen [Tylenol elixir 650 mg PO Q4HP PRN udc 01/29/19 05/11/19 Rx 325mg/10.15mL UDC] Furosemide [Lasix 20mg tablet] 20 mg G-TUBE DAILY 03/08/19 05/11/19 History Hydrocodone/Acetaminophen [[place] 1 each G-TUBE Q4HP PRN 03/08/19 05/11/19 History 5-325 Tablet] Ipratropium/Albuterol Sulfate 3 ml IH Q6HP PRN 03/08/19 05/11/19 History [Duoneb 3mL neb] levETIRAcetam [Keppra] 1,000 mg G-TUBE BID #0 03/25/19 05/11/19 Rx Chlorhexidine Gluconate [Peridex] 1 appful MM Q6HP PRN 05/05/19 05/11/19 History Fluticasone/Vilanterol [Breo 1 puff IH DAILY 05/05/19 05/05/19 History Ellipta 200-25 Mcg INH] Lidocaine [Lidoderm 5% transdermal 1 each TP Q24H PRN 05/05/19 05/11/19 History patch] Melatonin 3 mg PO HS 05/05/19 05/11/19 History raNITIdine HCl [Ranitidine HCl] 150 mg PO BID 05/05/19 05/11/19 History Ciprofloxacin [Ciprofloxacin 750 mg PO BID 05/11/19 05/11/19 History 500mg/5ml Oral Susp] Allergies Allergy/AdvReac Type Severity Reaction Status Date / Time No Known Allergies Allergy Verified 05/11/19 20:50 Exam Vital signs and Labs for Last 24 Hours: Temp Pulse Resp BP Pulse Ox 97.9 F 84 20 149/91 H 99 05/12/19 04:00 05/12/19 04:00 05/12/19 04:00 05/12/19 04:00 05/12/19 04:00 Laboratory Results - last 24 hr 05/11/19 21:05: WBC 8.9, RBC 3.59 L, Hgb 10.7 L, Hct 34.0 L, MCV 94.6 H, MCH 29.7, MCHC 31.4 L, RDW 15.3, Plt Count 684 H, MPV 7.1 L, Neut % (Auto) 62.4, Lymph % (Auto) 22.2, [place] % (Auto) 7.9, Eos % (Auto) 7.2, Baso % (Auto) 0.4, Neut # (Auto) 5.5, Lymph # (Auto) 2.0, [place] # (Auto) 0.7, Eos # (Auto) 0.6 H, Baso # (Auto) 0.0 05/11/19 21:05: Sodium 136, Potassium 4.3, Chloride 100, Carbon Dioxide 29, Anion Gap 11.3, BUN 44 H, Creatinine 3.74 H, Estimated Creat Clear 17, Estimated GFR 17 L*, Est GFR ( Amer) 20 L, Glucose 110 H, Calcium 9.0, Total Bilirubin 0.2, AST 30, ALT 14, Alkaline Phosphatase 84, Total Protein 7.1, Albumin 2.7 L, Globulin 4.4 H, Albumin/Globulin Ratio 0.6 L 05/11/19 21:21: Urine Color Yellow, Urine Appearance Clear, Urine pH 6.0, Ur Specific [place] 1.015, Urine Protein 1+, Urine Glucose (UA) Negative, Urine Ketones Negative, Urine Blood Negative, Urine Nitrate Negative, Urine Bilirubin Negative, Urine Urobilinogen 0.2, Ur Leukocyte Esterase Negative, Urine WBC Occasional, Ur Squamous Epith Cells Occasional, Urine Bacteria Trace 05/12/19 06:02: POC Glucose 91 05/12/19 06:47: WBC 11.9 H D, RBC 3.73 L, Hgb 11.3 L, Hct 35.3 L, MCV 94.8 H, MCH 30.3, MCHC 32.0, RDW 15.3, Plt Count 644 H, MPV 7.4, Neut % (Auto) 73.1, Lymph % (Auto) 12.6, [place] % (Auto) 9.1, Eos % (Auto) 4.8, Baso % (Auto) 0.5, Neut # (Auto) 8.7 H, Lymph # (Auto) 1.5, [place] # (Auto) 1.1 H, Eos # (Auto) 0.6 H , Baso # (Auto) 0.1 I & O for Last 24 hours: Intake & Output 05/09/19 05/10/19 05/11/19 05/12/19 23:59 23:59 23:59 23:59 Intake Total 662 / 662 Output Total 650 / 650 Balance Weight 52.844 kg 52.844 kg Narrative: Cachectic male, appears older than stated age, bitemporal wasting, no acute distress on room air Heart regular no murmur Lungs clear with no wheeze or rhonchi at this time Abdomen soft, G-tube site clean dry and intact with no erythema, bowel sounds active, nontender Extremities thin, muscle wasting, no edema Skin pale and dry Encarnacion in place draining clear yellow urine Globally weak with strength 4 out of 5, no focal deficits Assessment and Plan (1) Cachexia Current visit: No Status: Chronic Category: Medical Code(s): R64 - Cachexia Complicates all aspects of his care (2) Gastrojejunostomy tube status Current visit: No Status: Chronic Category: Medical Code(s): Z93.4 - Other artificial openings of gastrointestinal tract status (3) Seizure disorder Current visit: No Status: Chronic Category: Medical Code(s): G40.909 - Epilepsy, unspecified, not intractable, without status epilepticus Resume home medications. Seizure precautions (4) Severe protein-calorie malnutrition Current visit: No Status: Chronic Category: Medical Code(s): E43 - Unspecified severe protein-calorie malnutrition Uppercase all aspects of his care. Resume tube feeds per nutrition consult from last visit (5) Acute renal failure Current visit: Yes Status: Acute Category: Medical Code(s): N17.9 - Acute kidney failure, unspecified Unclear etiology however at this time BUN/creatinine ratio suggestive of postobstructive given presence of kidney stones versus intrinsic. Patient was on combination of Zosyn and vancomycin, review of past labs showed trough was elevated above goal of 20. Will obtain trough today to assess for possible vancomycin presence as patient should have cleared this medication by now. If elevated have strong suspicion of nephrotoxic effect. Will initiate steroids. Continue fluid resuscitation and monitor for improvement with labs in the morning
[2019-05-12 07:32] LABS: Anion Gap 18.6 mEq/L (5-15); Calcium 8.7 mg/dL (8.5-10.1)
--- NOTE | 2019-05-12 14:19 | Pharmacy Consult Notes ---
[facility] Pharmacy VTE Monitoring - Patient Demographics Admission date: 05/12/19 Report Date: 05/12/19 Time: 14:18 Allergies/Adverse Reactions: Patient Allergies No Known Allergies Allergy (Verified 05/11/19 20:50) Height: 1.78 m Weight: 52.844 kg Patient Problems: Current Active Problems (This Medical Record has been edited. Action required.) History of ureteral obstruction (Acute) MERI (acute kidney injury) (Acute) Acute renal failure (Acute) - VTE Risk Labs: VTE Related Lab Results Hgb 11.3 g/dL (14.1-18.0) L 05/12/19 06:47 Hct 35.3 % (42.0-52.0) L 05/12/19 06:47 Plt Count 644 K/mm3 (142-424) H 05/12/19 06:47 BUN 42 mg/dL (7-18) H 05/12/19 06:47 Creatinine 3.34 mg/dL (0.70-1.30) H 05/12/19 06:47 Estimated Creat Clear 19 mL/min (50-200) 05/12/19 06:47 Was VTE Risk Assessment Performed: Yes VTE Score: 5 VTE Risk Level: Low Risk - Prophylaxis Types of VTE Prophylaxis: TEDS Knee High (KLEVER HOSE ORDER PLACED)
[2019-05-13 07:18] LABS: Basophils % 0.1 % (0.1-2.0); Eosinophils # 0.1 K/mm3 (0.0-0.4); Hematocrit 31.3 % (42.0-52.0); Hemoglobin 10.2 g/dL (14.1-18.0); Lymphocytes # 0.7 K/mm3 (0.7-4.5); Lymphocytes % 6.1 % (10-50); Mean Corpuscular HGB Conc 32.7 g/dL (31.8-35.4); Mean Corpuscular Volume 93.8 fl (80-94); Mean Platelet Volume 8.1 fl (7.4-10.4); Monocytes # 0.6 K/mm3 (0.1-1.0); Monocytes % 5.7 % (1.7-9.3); Neutrophils # 9.6 K/mm3 (1.8-7.8); Neutrophils % 87.2 % (37.0-80.0); Red Blood Count 3.34 M/mm3 (4.60-6.20); Red Cell Distribution Width 15.3 % (11.5-17.5)
[2019-05-13 07:19] LABS: Platelet Count 665 K/mm3 (142-424)
[2019-05-13 07:20] LABS: Anion Gap 12.8 mEq/L (5-15); Calcium 8.4 mg/dL (8.5-10.1)
--- NOTE | 2019-05-13 08:41 | Progress Note ---
Internal Medicine - PN: Subj *Date: 05/13/19 *Time: 10:07 Interval history: No acute events overnight on room air. Not on oxygen this morning on assessment. Remains afebrile and hemodynamically stable. Tolerating tube feeds with minimal residuals. Urine output adequate. Improvement in creatinine after initiation of steroids. No shortness of breath, chest pain, nausea, vomiting, diarrhea. Exam Vital signs and Labs for Last 24 Hours: Temp Pulse Resp BP Pulse Ox 97.7 F 82 20 138/78 99 05/13/19 04:00 05/13/19 04:00 05/13/19 04:00 05/13/19 04:00 05/13/19 04:00 Laboratory Results - last 24 hr 05/12/19 06:52: Vancomycin Trough 13.1 05/12/19 11:47: POC Glucose 118 H 05/12/19 20:59: POC Glucose 191 H 05/13/19 05:21: POC Glucose 213 H 05/13/19 06:00: Vancomycin Trough 10.3 05/13/19 07:02: Sodium 137, Potassium 5.8 H D, Chloride 104, Carbon Dioxide 26, Anion Gap 12.8, BUN 42 H, Creatinine 2.70 H, Estimated Creat Clear 24, Estimated GFR 25 L, Est GFR ( Amer) 30 L D, Glucose 225 H, Calcium 8.4 L 05/13/19 07:02: WBC 11.0 H, RBC 3.34 L, Hgb 10.2 L, Hct 31.3 L, MCV 93.8, MCH 30.7, MCHC 32.7, RDW 15.3, Plt Count 665 H, MPV 8.1, Neut % (Auto) 87.2 H, Lymph % (Auto) 6.1 L, [place] % (Auto) 5.7, Eos % (Auto) 1.0, Baso % (Auto) 0.1, Neut # (Auto) 9.6 H, Lymph # (Auto) 0.7, [place] # (Auto) 0.6, Eos # (Auto) 0.1, Baso # (Auto) 0.0 I & O for Last 24 hours: Intake & Output 05/10/19 05/11/19 05/12/19 05/13/19 23:59 23:59 23:59 23:59 Intake Total 4256 / 4256 2714 / 2714 Output Total 1295 / 1295 Balance 2961 / 2961 271 / 2714 Weight 52.844 kg 52.844 kg 53.779 kg Narrative: Cachectic male, appears older than stated age, bitemporal wasting, no acute distress on room air Heart regular no murmur Lungs with prominent rhonchi that clear with cough, no wheeze or crackles at this time Abdomen soft, G-tube site clean dry and intact with no erythema, bowel sounds active, nontender Extremities thin, muscle wasting, no edema Skin pale and dry Encarnacion in place draining clear yellow urine Globally weak with strength 4 out of 5, no focal deficits Assessment and Plan (1) Cachexia Current visit: No Status: Chronic Category: Medical Code(s): R64 - Cach exia (2) Gastrojejunostomy tube status Current visit: No Status: Chronic Category: Medical Code(s): Z93.4 - Other artificial openings of gastrointestinal tract status (3) Seizure disorder Current visit: No Status: Chronic Category: Medical Code(s): G40.909 - Epilepsy, unspecified, not intractable, without status epilepticus (4) Severe protein-calorie malnutrition Current visit: No Status: Chronic Category: Medical Code(s): E43 - Unspecified severe protein-calorie malnutrition (5) Acute renal failure Current visit: Yes Status: Acute Category: Medical Code(s): N17.9 - Acute kidney failure, unspecified - Assessment and plan all Dx Assessment and Plan for all problems:: Showing improvement in kidney failure with fluids and steroids. We will recheck vancomycin level and kidney function in the morning. Continue current course. If shows continued improvement tomorrow plan to transition to oral steroids and would likely be stable for discharge back to the detention. Prognosis fair. Continues to require inpatient management
[2019-05-13 12:46] LABS: Eosinophils % 1 % (0-3); Lymphocytes % 9 % (10-50); Monocytes % 4 % (2-9); Neutrophils % 86 % (42-76); Total Cells Counted 100
[2019-05-13 12:49] LABS: RBC Morphology Normal
[2019-05-14 06:44] LABS: Anion Gap 9.4 mEq/L (5-15); Calcium 8.2 mg/dL (8.5-10.1)
[2019-05-14 07:30] LABS: Vancomycin,Trough 8.9 mcg/ml (10.0-20.0)
--- NOTE | 2019-05-14 08:33 | Discharge Summary ---
General - General Admission date:: 05/12/19 Discharge date: 05/14/19 HPI HPI: Mr. 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 He is a full-time resident of the group home with G-tube, and has multiple issues with recurrent aspiration pneumonias. Was recently seen a week ago with a pneumonia and treated during admission with Zosyn and vancomycin. Was transitioned after a few days to ciprofloxacin to complete course for his infection as an outpatient with oral medication. Had labs obtained at the group home on Tuesday which showed abnormal elevation in creatinine. Baseline for patient is approximately 0.3-0.4. Creatinine obtained Tuesday was reportedly a 3.6 with a BUN in the low 40s. He was sent to the ER for further evaluation. Patient has had no other symptoms that were reported at that time however upon presentation to the ER, they were informed that the patient had had decreased urine output for 3 to 4 days. He was admitted to medicine for further management after lab work showed renal failure with creatinine of 3.7. On assessment this morning, patient appears at his baseline, alert and oriented, answering questions. Denies any complaints. Encarnacion in place with clear urine draining. Hospital Course Hospital Course: Patient was admitted, determined to have kidney injury from previously administered vancomycin even though this had been stopped on discharge back to the group home, apparently from significantly impaired renal clearance. Patient was admitted, hydration was given and intravenous steroids. Patient did well with this. Had a stepwise improvement in his creatinine. This morning he was doing well, much more alert, creatinine had dropped to 2.27, close to his baseline. He will be discharged back to the [facility]. He will need BMP and CBC on 05/17/2019. Otherwise nursing care, medications will be as noted. Of note patient does have some seborrhea around his eyebrows and nasal bridge. I have ordered triamcinolone cream for this. Objective Vital signs: Temp Pulse Resp BP Pulse Ox 98.9 F 93 H 20 154/88 H 92 L 05/14/19 07:47 05/14/19 07:47 05/14/19 07:47 05/14/19 07:47 05/14/19 07:47 Narrative: Patient is pleasantly responsive. Follows minimal one-step commands. Otherwise significant cognitive impairment as previously noted. Heart rate regular. Abdomen soft, G-tube in good position. Anterior lung brown are clear, rhonchi scattered throughout the posterior brown. Seborrhea across his eyebrows and nasal bridge. Otherwise no rashes. Neurologic exam significantly abnormal as previously noted. Perfusion is reasonable. Significant weight loss/cachexia as previously noted. Results Labs on day of discharge: Labs from last 24 hours 05/14/19 05/13/19 05/13/19 05:42 11:21 07:02 Total Counted 100 Neutrophils % (Manual) 86 H Lymphocytes % (Manual) 9 L Monocytes % (Manual) 4 Eosinophils % (Manual) 1 Platelet Estimate Slight increase RBC Morphology Normal Sodium 139 Potassium 4.4 D Chloride 105 Carbon Dioxide 29 Anion Gap 9.4 BUN 43 H Creatinine 2.27 H Estimated Creat Clear 33 Estimated GFR 30 L Est GFR ( Amer) 36 L Glucose 162 H D POC Glucose 235 H Calcium 8.2 L Vancomycin Trough 8.9 L DS: Diagnosis - Discharge Diagnosis (1) Cachexia Status: Chronic (2) Gastrojejunostomy tube status Status: Chronic (3) Seizure disorder Status: Chronic (4) Severe protein-calorie malnutrition Status: Chronic (5) Acute renal failure Status: Resolved Discharge Plan - Patient Discharge Instructions ACTIVITY: Continue current activity DIET: continue same diet Patient Instructions: Kidney Stones -- Adult, DI for Kidney Stones - Follow up Plan Follow up with: Jennie Rock APRN [Nurse Practitioner] - Disposition: Xfer [facility] Home Medications: Home Medications Medication Instructions Recorded Confirmed Type Benzonatate [Benzonatate 100mg 100 mg G-TUBE TIDP PRN 01/28/19 05/11/19 History cap] Bisacodyl [Bisacodyl 10mg Supp] 10 mg RC DAILYP PRN 01/28/19 05/11/19 History Doxazosin Mesylate [Doxazosin 1mg 1 mg G-TUBE DAILY 01/28/19 05/11/19 History Tab] Folic Acid [Folic Acid 1mg tablet] 1 mg G-TUBE DAILY 01/28/19 05/11/19 History Gabapentin [Gabapentin 300mg Cap] 300 mg G-TUBE TID 01/28/19 05/11/19 History Ibuprofen [Ibuprofen 800mg 800 mg G-TUBE BID 01/28/19 05/11/19 History Tablet] Ondansetron [Zofran 4mg ODT] 4 mg PO Q6HP PRN 01/28/19 05/11/19 History Pyridoxine HCl (Vitamin B6) 50 mg G-TUBE DAILY 01/28/19 05/11/19 History [Pyridoxine HCl] Quetiapine Fumarate 100 mg G-TUBE BID 01/28/19 05/11/19 History Sennosides [Senna] 8.6 mg G-TUBE DAILY 01/28/19 05/11/19 History Sertraline HCl [Zoloft 100mg 200 mg G-TUBE DAILY 01/28/19 05/11/19 History tablet] Simethicone [Gas Relief] 80 mg G-TUBE Q4HP PRN 01/28/19 05/11/19 History Thiamine HCl 100 mg G-TUBE DAILY 01/28/19 05/11/19 History Tiotropium [place] [Spiriva 2 puff IH DAILY 01/28/19 05/11/19 History 18mcg/puff inhaler] Valproic Acid (As Sodium Salt) 500 mg G-TUBE BID 01/28/19 05/11/19 History [Valproic Acid] Furosemide [Lasix 20mg tablet] 20 mg G-TUBE DAILY 03/08/19 05/11/19 History Hydrocodone/Acetaminophen [Gerlaw 1 each G-TUBE Q4HP PRN 03/08/19 05/11/19 History 5-325 Tablet] Ipratropium/Albuterol Sulfate 3 ml IH Q6HP PRN 03/08/19 05/11/19 History [Duoneb 3mL neb] levETIRAcetam [Keppra] 1,000 mg G-TUBE BID #0 03/25/19 05/11/19 Rx Chlorhexidine Gluconate [Peridex] 1 appful MM Q6HP PRN 05/05/19 05/11/19 History Lidocaine [Lidoderm 5% transdermal 1 each TP Q24H PRN 05/05/19 05/11/19 History patch] Melatonin 3 mg PO HS 05/05/19 05/11/19 History raNITIdine HCl [Ranitidine HCl] 150 mg PO BID 05/05/19 05/11/19 History Ciprofloxacin [Ciprofloxacin 750 mg PO BID 05/11/19 05/11/19 History 500mg/5ml Oral Susp] Acetaminophen 960 mg PO Q4HP PRN 05/12/19 05/12/19 History chlordiazePOXIDE HCl 5 mg PO BID 05/12/19 05/12/19 History [Chlordiazepoxide HCl] Triamcinolone Acetonide 15 gm TP BID PRN #1 oint...g. 05/14/19 Rx Prescriptions/Medication Reconciliation: New Triamcinolone Acetonide 15 gm TP BID PRN #1 oint...g. PRN Reason: appy to scaling seborrhea rash Continued Tiotropium [place] [Spiriva 18mcg/puff inhaler] 2 puff IH DAILY Valproic Acid (As Sodium Salt) [Valproic Acid] 500 mg G-TUBE BID Thiamine HCl 100 mg G-TUBE DAILY Sertraline HCl [Zoloft 100mg tablet] 200 mg G-TUBE DAILY Sennosides [Senna] 8.6 mg G-TUBE DAILY Quetiapine Fumarate 100 mg G-TUBE BID Pyridoxine HCl (Vitamin B6) [Pyridoxine HCl] 50 mg G-TUBE DAILY Ondansetron [Zofran 4mg ODT] 4 mg PO Q6HP PRN PRN Reason: Nausea Gabapentin [Gabapentin 300mg Cap] 300 mg G-TUBE TID Folic Acid [Folic Acid 1mg tablet] 1 mg G-TUBE DAILY Doxazosin Mesylate [Doxazosin 1mg Tab] 1 mg G-TUBE DAILY Benzonatate [Benzonatate 100mg cap] 100 mg G-TUBE TIDP PRN PRN Reason: Cough Ipratropium/Albuterol Sulfate [Duoneb 3mL neb] 3 ml IH Q6HP PRN PRN Reason: Congestion levETIRAcetam [Keppra] 1,000 mg G-TUBE BID #0 Melatonin 3 mg PO HS Lidocaine [Lidoderm 5% transdermal patch] 1 each TP Q24H PRN PRN Reason: PAIN raNITIdine HCl [Ranitidine HCl] 150 mg PO BID Chlorhexidine Gluconate [Peridex] 1 appful MM Q6HP PRN PRN Reason: Dry Mouth chlordiazePOXIDE HCl [Chlordiazepoxide HCl] 5 mg PO BID Bisacodyl [Bisacodyl 10mg Supp] 10 mg RC DAILYP PRN PRN Reason: Constipation Simethicone [Gas Relief] 80 mg G-TUBE Q4HP PRN PRN Reason: Gas Pain And Discomfort Hydrocodone/Acetaminophen [Gerlaw 5-325 Tablet] 1 each G-TUBE Q4HP PRN PRN Reason: PAIN Acetaminophen 960 mg PO Q4HP PRN PRN Reason: PAIN/FEVER Discontinued Ibuprofen [Ibuprofen 800mg Tablet] 800 mg G-TUBE BID Ciprofloxacin [Ciprofloxacin 500mg/5ml Oral Susp] 750 mg PO BID Furosemide [Lasix 20mg tablet] 20 mg G-TUBE DAILY - Problem Reconciliation Problems Reviewed?: Yes
== END 2019-05-14 10:53 | DRG 682 ==
LOC: 2ND 20:33 → ER 20:33 → 2ND 23:55
PROVIDERS: ADMIT Internal Medicine Adolescent Medicine; ATTEND Internal Medicine Adolescent Medicine
CPT/HCPCS: G0378

== ENCOUNTER 2019-05-25 08:21 | Outpatient (CLI) | payer MEDICARE, MEDICAID, SELFPAY ==
[2019-05-25] VITALS (21 sets, daily range): BP systolic 103–167; BP diastolic 67–93; PULSE 69–102; RESP 18–20; TEMP 36.7–37.2; O2SAT 94–97; BMI 17.2
--- NOTE | 2019-05-25 16:25 | PC.NURSE ---
05/25/19 1015 Spoke with nurse Callie at [facility]/ inquired about pt's routine medications and when he last received his scheduled medications/MAR that was sent with pt last had medications recorded on Tue05/22/19. Nurse states pt did not receive his scheduled AM medications this AM prior to leaving snf for transfer to [facility] for blood transfusion. Will notify LYRIC Puckett for any orders for medications that she wishes pt to receive while in our care.
--- NOTE | 2019-05-25 16:33 | PC.NURSE ---
05/25/19 1100 Received order from LYRIC Puckett for routine usp medications that pt needs to receive while at [facility] for blood transfusion. Will administer meds as ordered.
--- NOTE | 2019-05-25 16:35 | PC.NURSE ---
05/25/19 1120 Transfusion of 1st unit of blood initiated at this time. VSS/consistent with pt baseline. IV patent. Resp easy/reg. Lungs with few scattered rhonchi throughout lung brown/recent pneumonia per usp nurse report.
--- NOTE | 2019-05-25 17:18 | PC.NURSE ---
Received pt in room 203 and received bedside report from [place]e RN. Upon receipt of pt, pt is receiving Osmolite 1.2 tube feeding at 75ml/hr via PEG tube. IV (L) wrist infusing PRBCs @ 150ml/hr and has 15 minutes left of infusion.
--- NOTE | 2019-05-25 17:25 | PC.NURSE ---
05/25/19 1148 Pt med with Ativan 0.5mg per Gtube for agitation/restlessness/ attempting to pull out IV, Gtube. 1220 Pt calmer at this time, still restless but consistent with pt baseline, no longer pulling at IV,gtube
--- NOTE | 2019-05-25 17:28 | PC.NURSE ---
Collaborated with Dr Hu via telephone regarding post transfusion H&H. Dr Hu requests a CBC to be drawn in AM.
--- NOTE | 2019-05-25 17:29 | PC.NURSE ---
05/25/19 0800 Pt arrived to infusion dept via EMS. Pt placed in bed/safety device applied/call light in reach/pt instructed on how to use call light/bed locked low position. Pt is restless but cooperative with care. Pt found to have pants/underwear saturated with urine on arrival to infusion dept from EMS care. Pt cleaned/changed at this time. Bilateral groin areas and area surrounding penis/scrotum all reddened and excoriated, but no broken skin seen at this time.
--- NOTE | 2019-05-25 17:33 | PC.NURSE ---
05/25/19 1400 Transfusion of 1st unit of PRBC's complete at this time. Pt has betzy transfusion with no s/s transfusion reaction noted. Pt remains restless and has safety device in use at all times. Pt voids incontinently per attends and is changed frequently per nursing staff/moisture barrier cream applied with changes to reddened areas to groin/surrounding genitalia that was present on arrival of pt to infusion dept this am. Lungs remain with few scattered rhonchi noted throughout lung brown, but no increase and consistent with baseline arrival lung sounds prior to initiation of blood transfusion.
--- NOTE | 2019-05-25 17:35 | PC.NURSE ---
05/25/19 1416 Pt med with Lasix 40mg IV push as ordered to be given between 1st and 2nd unit of blood.
--- NOTE | 2019-05-25 17:36 | PC.NURSE ---
05/25/19 1455 Transfusion of 2nd unit of PRBC's initiated at this time. Lungs with few scattered rhonchi throughout, consistent with arrival baseline.
--- NOTE | 2019-05-25 17:37 | PC.NURSE ---
05/25/19 1518 Ativan 0.5mg IV given for severe restlessness and agitation, pt uncooperative with staff at this time. 1605 Ativan 0.5mg IV given for continued restlessness/agitation/uncooperative with staff at times/pt pulling at G-tube and IV. Bed safety alarm remains in use all shift. Pt monitored closely per nursing staff. Tolerating blood transfusion. Gtube feedings continue as ordered.
--- NOTE | 2019-05-25 17:39 | PC.NURSE ---
05/25/19 1210 Routine meds as ordered per Jennie Rock APRN given at this time upon availability from pharmacy. Meds given per Gtube. Gtube flushes easily with no problems noted. Pt has HOB elevated 45-90 deg at all times. Gtube feedings initiated as well as ordered and per dietary consult after admin of meds. Pt is on continuous Gtube feedings at custodial.
--- NOTE | 2019-05-25 17:42 | PC.NURSE ---
05/25/19 1700 Pt transported to room 203 med surg floor at this time for continuation of blood transfusion of 2nd unit of PRBC's. Pt betzy blood transfusion well with no s/s reaction or problems noted. Pt remains restless but is not agitated or combative. Pt is cooperative with care. Pt is baseline/consistent with arrival to infusion dept this am and what is reported to be his baseline. VSS. Skin warm/dry to touch. Gtube patent with feedings infusing as ordered with pt betzy well. Lungs with occasional scatt rhonchi that clears with cough/consistent with baseline. Pt has had excellent urine output incontinent per attends/changed x8 per staff since arrival to infusion dept this am. Moisture barrier cream in use to bilateral groin/surrounding genitalia area for redness present on arrival of pt to infusion dept this am. Vital signs charted through 1654 2nd hour vital sign for 2nd unit of blood. Detailed report given to Ignacia Purcell RN/ pt left in care of PETER Yancey at bedside/stable.
--- NOTE | 2019-05-25 17:51 | PC.NURSE ---
Report called to Mounika, nurse at [facility]. Report included current condition, meds received while at this facility, Tube feeding received and amount, and order for STAT CBC in AM. Mounika verbalized understanding of above. Waiting for transport to leaf size picker patient.
--- NOTE | 2019-05-25 18:20 | PC.NURSE ---
1800 - Pt transferred off floor escorted by EMT and drop man for transfer to [facility]. Pt is alert and in NAD. VSS.
== END 2019-05-25 18:00 ==
LOC: INF 08:21
PROVIDERS: Visit Provider Nurse Practitioner Family
DX: D64.9 Anemia, unspecified (principal)
CPT/HCPCS: 36430; 86850; P9016

== ENCOUNTER → 2019-06-25 13:43 | Outpatient (CLI) | payer MEDICARE, MEDICAID, SELFPAY ==
--- NOTE | 2019-06-25 13:50 | FL_ITS ---
PROCEDURE: FL BARIUM SWALLOW MODIFIED CLINICAL INDICATION: DYSPHAGIA COMPARISON: No exams were available for comparison TECHNIQUE: Patient administered varying consistencies of barium contrast, while viewed in lateral position under real-time fluoroscopy with cine recording. FLUOROSCOPY TIME:3 minutes and 23 seconds The study was performed in conjunction with speech pathologist. Please see that report & recommendations. FINDINGS: Patient was given varying consistencies of barium. No obvious penetration or aspiration. There was mild stasis and delay in initiation of the swallowing mechanism. There was poor bolus formation IMPRESSION: Delay in initiation of the swallowing mechanism with poor bolus formation and moderate residual. Please see speech pathologist report and recommendations. Dictated by: Syed Ch MD 06/25/2019 15:17 Electronically signed by Syed Ch MD in [place] 06/27/2019 12:40
--- NOTE | 2019-06-25 15:32 | HMH.SLMBS2 ---
Speech & Language Evaluation Speech/Language Mod Barium Swallow Start: 06/25/19 15:19 Freq: once Status: Complete Protocol: Document 06/25/19 15:19 TUCKER (Rec: 06/25/19 15:32 TUCKER [id number]) [facility] Recommendations Diet Dietary Recommendations Pureed,Pudding Liquids Treatment/Strategies Treatment Recommendation Chewing Exercises,Pharyngeal Resistive Exer,Compens. Strategy Educat. Strategy/Precaution Recommend Chin Tuck,Supraglottic Swallow ,Alternate Liquids/Solids Mod Barium Swallow Impressions Summary and Impressions Oral Phase Impression Moderate Impairment Oral Phase Summary Mr. Fountain exhibits fatigue as the session continued. He is unable to tolerate mechanical soft at this time. He had decreased bolus formation with mechanical soft. Pharyngeal Phase Impression Moderate Impairment Pharyngeal Phase Summary At this time, Mr. Fountain does aspirate on thin liquids via spoon, straw, and open cup, and nectar via spoon and open cup. Compensatory strategy of chin tuck attempted however, patient could not get the timing of tuck prior to swallow. Speech/Language MBS Assessment/Goals/Plan Assessment Date of Evaluation: 06/25/19 Evaluation Type Initial Certification Assessment/Problems Determine least restrictive diet due to dysphagia Does Patient Qualify for Service No Qualify/Failure Comment Patient will be followed up with RETAIL SALES DIRECTOR at [facility] Plan Pt/Guardian verbally ack understanding Yes of dx/prognosis/goals G -code Required Yes G-CODES ST Current Status [id number] ST Current Status Modifier CM-At least 80% but less than 100% impaired, limited or restricted ST Goal Status [id number] ST Goal Status Modifier CM-At least 80% but less than 100% impaired, limited or restricted Mod Barium Swallow Setup Exam Setup Radiologist Syed Ch Level of Consciousness Awake,Alert,Appropriate Position (degrees) 90 Mod Barium Swallow-Lat View Textures Lateral View Food Presentation Thin Liquid via Spoon,Thin Liquid via Cup,Thin Liquid via
== END ==
PROVIDERS: PCP Internal Medicine Adolescent Medicine; Visit Provider Nurse Practitioner Family
DX: E43 Unspecified severe protein-calorie malnutrition (principal); R13.10 Dysphagia, unspecified
CPT/HCPCS: 70371; 92611

== ENCOUNTER 2020-08-15 10:02 | Emergency (ER) | payer MEDICARE, MEDICAID, SELFPAY ==
[2020-08-15 10:03] VITALS: BP 124/87; PULSE 88; RESP 18; TEMP 36.6; O2SAT 95; BMI 20.3
--- NOTE | 2020-08-15 10:08 | HMH.EDGENADL ---
ED Disposition Clinical Impression: Gastrojejunostomy tube dislodgement Disposition: Xfer SNF Condition on Discharge: Good Additional Instructions: Use g tube as you did before. Return if issues. Referrals: Shiv Hu MD [Primary Care Provider] - - Critical Care Critical Care Time: No Attestation: On , the high probability of a clinically significant, sudden or life threatening deterioration of the following system(s) required my full and direct attention, intervention and personal management. The time I documented below is in addition to time spent performing reported procedures but includes the following listed in this critical care notation. Medical Decision Making - Medical Records Medical records reviewed: Yes: I reviewed the patient's medical records. - Gene Inquiry Pt receiving controlled substance: No Vital Signs: 08/15/20 10:03 08/15/20 11:51 Temperature 97.9 F Temperature Source Oral Pulse Rate [Left Radial] 88 117 H Respiratory Rate 18 18 Blood Pressure [Right Arm] 124/87 133/89 Blood Pressure Mean [Right Arm] 99 103 Blood Pressure Source [Right Arm] Automatic Cuff Blood Pressure Position [Right Arm] Supine 02 Sat by Pulse Oximetry 95 94 L Oxygen Delivery Method Room Air Orders (Tests/Meds): ED MEDICATIONS Discontinued Medications Generic Name Dose Route Start Last Admin Trade Name Freq PRN Reason Stop Dose Admin Diatrizoate Meglum/Diatrizoate Sod 15 ml 08/15/20 11:36 08/15/20 11:37 Diatrizoate Madeline 66% & Diatrizoate Na 10% 30ml Udc PO 08/15/20 11:37 15 ml ONCE ONE Administration Medical Decision Narrative: Patient presents the emergency department with G-tube dislodgment. On review of chart, it looks as if patient has had a G-tube for greater than 1 year. Unknown period of time G-tube is been out and could be for greater than several hours. Immediately on his arrival a 16 [place] G-tube was obtained and I did try to replace G-tube. I did meet resistance and again there is some concern that stoma may have closed. I was able to reach out to surgery and on-call surgeon was able to report to the emergency department and assisted. After use of dilator, G-tube replaced with aspiration of gastric contents. Patient tolerated procedure well. Gastrografin study ordered for confirmation. Gastrografin study demonstrates Gastrografin within the stomach lumen. Patient discharged in stable condition with instructions to continue taking meds and feeds via G-tube and to follow-up with PCP. Patient return if any G-tube issues or any other new concerning complaints. Assessment: G-tube dislodgment G-tube replacement History of alcoholic encephalopathy History of Wernicke's encephalopathy Disposition: Back to skilled nursing facility after G-tube replaced General Adult HPI - General Stated complaint: g-tube pulled out Time Seen by Provider: 08/15/20 10:15 - History of Present Illness HPI narrative: Patient 55-year-old male history of alcoholic encephalopathy, dysphagia with recurrent aspiration pneumonia now G-tube dependent, Wernicke's Korsakoff syndrome presenting with G-tube dislodgment. Per nursing facility, nurse at 7 AM went to check on patient and found a G-tube in bed with patient dislodged. Patient did receive nighttime meds at around 1 AM but unsure of when G-tube became dislodged after that time. No other complaints per patient or reported per nursing staff. - Related Data Home Medications Medication Instructions Recorded Confirmed Benzonatate [Benzonatate 100mg 100 mg G-TUBE TIDP PRN 01/28/19 05/11/19 cap] Bisacodyl [Bisacodyl 10mg Supp] 10 mg RC DAILYP PRN 01/28/19 05/11/19 Doxazosin Mesylate [Doxazosin 1mg 1 mg G-TUBE DAILY 01/28/19 05/11/19 Tab] Folic Acid [Folic Acid 1mg tablet] 1 mg G-TUBE DAILY 01/28/19 05/11/19 Gabapentin [Gabapentin 300mg Cap] 300 mg G-TUBE TID 01/28/19 05/11/19 Ondansetron [Zofran 4mg ODT] 4 mg PO Q6HP
--- NOTE | 2020-08-15 10:40 | PC.NURSE ---
paged Dr Romo for surgical consult
--- NOTE | 2020-08-15 10:40 | PC.NURSE ---
BJ from surgical suite called advised Dr Romo is in surgery and will return call when he gets out.
--- NOTE | 2020-08-15 10:41 | PC.NURSE ---
attempted to replace g-tube with Dr. Montes De Oca. Unsuccessful at this time. Pages surgeon business development consultant
--- NOTE | 2020-08-15 10:48 | PC.NURSE ---
speaking with Dr. Romo
--- NOTE | 2020-08-15 10:51 | PC.NURSE ---
Dr. Romo at bedside
--- NOTE | 2020-08-15 10:57 | XR_ITS ---
PROCEDURE: XR KUB CLINICAL INDICATION: gtube placement COMPARISON: CT CT ABDOMEN PELVIS WO CON from 05/11/2019 FINDINGS: Contrast was injected into the G-tube position along the greater curvature of the stomach. There is partial opacification of the stomach showing grossly normal appearing rugal folds. There is a linear collection of contrast projecting a couple cm below stomach in this likely is contrast on the skin or clothing rather than true leakage the stomach or G-tube path. There is no evidence of free air. The bowel gas pattern is unremarkable.. IMPRESSION: Satisfactory G-tube placement Dictated by: Dr. Joey Read MD 08/15/2020 11:52 Dr. Joey Read MD in [place] 08/15/2020 11:52
[2020-08-15 11:51] VITALS: BP 133/89; PULSE 117; RESP 18; O2SAT 94
--- NOTE | 2020-08-15 12:00 | PC.NURSE ---
Report given to Elizabeth at [facility]
[2020-08-15 12:23] VITALS: BP 143/85; PULSE 114; RESP 20; O2SAT 94
[2020-08-15 12:26] VITALS: BP 143/85; PULSE 114; RESP 20; TEMP 36.6; O2SAT 95
== END 2020-08-15 12:29 ==
PROVIDERS: Emergency Provider Emergency Medicine; PCP Internal Medicine Adolescent Medicine
DX: T85.528A Displacement of other gastrointestinal prosthetic devices, implants and grafts, initial encounter (principal); F04 Amnestic disorder due to known physiological condition; G31.2 Degeneration of nervous system due to alcohol; J44.9 Chronic obstructive pulmonary disease, unspecified; I10 Essential (primary) hypertension; F17.210 Nicotine dependence, cigarettes, uncomplicated
CPT/HCPCS: 74018; 99283

== ENCOUNTER 2020-10-08 11:56 | Inpatient (IN) | payer MEDICARE, MEDICAID, SELFPAY ==
[2020-10-08] VITALS (11 sets, daily range): BP systolic 98–127; BP diastolic 68–87; PULSE 96–149; RESP 16–22; TEMP 36.5–40; O2SAT 94–100; BMI 20.9; BMI 18.8
--- NOTE | 2020-10-08 11:32 | ECG_ITS ---
APPROVED REPORT Exam: Resting ECG HR:155 bpm ECG Measurements Heart Rate 155 AXES QRSd 68 QRS 138 QT 326 T 65 QTc 523 Conclusion Supraventricular tachycardia with fusion complexes Right axis deviation Pulmonary disease pattern Nonspecific ST and T wave abnormality Abnormal ECG Electronically signed by : Shiv Hu, 10/08/2020 17:41:17
--- NOTE | 2020-10-08 12:05 | HMH.EDGENADL ---
ED Disposition Clinical Impression: HCAP (healthcare-associated pneumonia), Hypoxia, Hypernatremia, Severe sepsis Disposition: Admitted As Inpatient Condition on Discharge: Serious - Critical Care Critical Care Time: No Attestation: On , the high probability of a clinically significant, sudden or life threatening deterioration of the following system(s) required my full and direct attention, intervention and personal management. The time I documented below is in addition to time spent performing reported procedures but includes the following listed in this critical care notation. Medical Decision Making - Gene Inquiry Pt receiving controlled substance: No Vital Signs: 10/08/20 12:02 10/08/20 12:15 10/08/20 12:48 Temperature 104.0 F H Temperature Source Rectal Pulse Rate [Right] 96 H 149 H 142 H Respiratory Rate 16 20 22 Blood Pressure [Right Arm] 120/81 122/87 122/84 Blood Pressure Mean [Right Arm] 94 98 96 Blood Pressure Source [Right Arm] Automatic Cuff Blood Pressure Position [Right Arm] Sitting 02 Sat by Pulse Oximetry 96 95 95 Oxygen Delivery Method Nasal Cannula Nasal Cannula Nasal Cannula Oxygen Flow Rate (LPM) 2 2 2 10/08/20 13:17 10/08/20 14:25 10/08/20 14:44 Temperature 99.8 F H Temperature Source Rectal Pulse Rate [Right] 136 H Respiratory Rate 20 20 Blood Pressure [Right Arm] 113/71 127/81 Blood Pressure Mean [Right Arm] 85 96 Blood Pressure Source [Right Arm] Blood Pressure Position [Right Arm] 02 Sat by Pulse Oximetry 94 L 96 Oxygen Delivery Method Nasal Cannula Nasal Cannula Oxygen Flow Rate (LPM) 2 2 10/08/20 15:30 10/08/20 16:14 Temperature Temperature Source Pulse Rate [Right] 123 H 112 H Respiratory Rate 20 16 Blood Pressure [Right Arm] 110/76 110/68 Blood Pressure Mean [Right Arm] 87 82 Blood Pressure Source [Right Arm] Automatic Cuff Blood Pressure Position [Right Arm] Sitting 02 Sat by Pulse Oximetry 97 97 Oxygen Delivery Method Nasal Cannula Nasal Cannula Oxygen Flow Rate (LPM) 2 2 - Lab Data Lab results reviewed: Yes: I reviewed the patient's lab results. Lab Results 10/08/20 12:40: WBC 21.4 H*, RBC 5.47, Hgb 17.6, Hct 56.9 H, MCV 104.1 H, MCH 32.2 H, MCHC 31.0 L, RDW 14.5, Plt Count 447 H, MPV 10.1, Neut % (Auto) 83.7 H, Lymph % (Auto) 8.7 L, [place] % (Auto) 5.6, Eos % (Auto) 0.5, Baso % (Auto) 1.5, Neut # (Auto) 17.9 H, Lymph # (Auto) 1.9, [place] # (Auto) 1.2 H, Eos # (Auto) 0.1, Baso # (Auto) 0.3 H, Total Counted 100, Neutrophils % (Manual) 72, Band Neutrophils % 6.0, Lymphocytes % (Manual) 13, Monocytes % (Manual) 9, Platelet Estimate Normal, RBC Morphology Not Reportable, Anisocytosis 1+, Macrocytosis 1+ 10/08/20 12:40: Sodium 176 H*, Potassium 4.3, Chloride 132 H, Carbon Dioxide 29, Anion Gap 19.3 H, BUN 53 H, Creatinine 1.40 H, Estimated Creat Clear 49, Estimated GFR 52 L, Est GFR ( Amer) 63, Glucose 143 H, Calcium 10.6 H, Total Bilirubin 0.8, AST 38, ALT 30, Alkaline Phosphatase 176 H, Total Protein 9.9 H, Albumin 4.8, Globulin 5.1 H, Albumin/Globulin Ratio 0.9 L, Procalcitonin 0.209 10/08/20 12:40: Lactate 3.2 H 10/08/20 12:40: SARS-CoV-2 IgG Ab (Rapid) Positive A, SARS-CoV-2 IgM Ab (Rapid) Negative 10/08/20 12:40: Lipase 29, Total Valproic Acid 33.5 L 10/08/20 12:40: Ammonia 55 H 10/08/20 14:40: Urine Color Yellow, Urine Appearance Sl cloudy, Urine pH 7.0, Ur Specific [place] <= 1.005, Urine Protein 2+, Urine Glucose (UA) Negative, Urine Ketones Negative, Urine Blood 3+, Urine Nitrate Negative, Urine Bilirubin Negative, Urine Urobilinogen 0.2, Ur Leukocyte Esterase Negative, Urine RBC 10-20, Urine WBC Occasional, Ur Squamous Epith Cells 3-5 10/08/20 14:40: Chlamy pneumoniae PCR Not detected, Adenovirus (PCR) Not detected, B. pertussis DNA (PCR) Not detected, Coronavirus OC43 (PCR) Not detected, Coronavirus HKU1 (PCR) Not detected, Coronavirus 229E (PCR) Not detected, SARS-CoV-2 (PCR) Not detected, Coronavirus NL63 (PCR) Not detected, Kelly
--- NOTE | 2020-10-08 12:07 | XR_ITS ---
PROCEDURE: XR CHEST PORTABLE CLINICAL HISTORY: fever Fever, Covid19 positive COMPARISON: CT CHESTWO CT chest wo con from 03/23/2019 CR XR CHEST PORTABLE from 05/04/2019 FINDINGS: The cardiomediastinal silhouette and pulmonary vascularity are within normal limits. COPD. There is consolidation in the right lower lobe which appears somewhat worse. No acute bony abnormalities. IMPRESSION: Right lower lobe pneumonia Dictated by: Syed Ch MD 10/08/2020 14:23 Syed Ch MD in [place] 10/08/2020 14:23
--- NOTE | 2020-10-08 12:08 | CT_ITS ---
PROCEDURE: CT ABDOMEN PELVIS W CON CLINICAL INDICATION: fever, abdominal tenderness Fever and abdominal distension, history of Covid19 positive. COMPARISON: CT CT ABDOMEN PELVIS WO CON from 05/11/2019 TECHNIQUE: IV Contrast: 75ML Isovue 370 Oral Contrast None Axial images obtained with sagittal and coronal reformats. All CT scans at the facility use one or more dose reduction, viz: automated exposure control, ma/kV adjustment per patient size (including targeted exams where dose is matched to indication, i.e. head), or iterative reconstruction technique. FINDINGS: LOWER THORAX: There is chronic consolidation in the right lower lobe which appears somewhat worse than when compared to 05/11/2019 exam. There are mild atelectatic changes in the left lower lobe. ABDOMEN & PELVIS: There is an area decreased density within the left hepatic lobe at the region of the falciform ligament and may be due to focal fatty infiltration. The gallbladder is distended. There may be a stone near the neck of the gallbladder. The spleen and adrenal glands are unremarkable. Unremarkable appearing pancreas. No renal or ureteral calculi. There is a small right renal cyst at 8 mm. PEG catheter is in satisfactory position. There is a moderate amount of retained colonic feces throughout the colon. What appears to represent a catheter is present in the distal ileum measuring approximately 20 cm in length with the bulb in the right lower quadrant. This is proximal to the ileocecal valve region. The urinary bladder is collapsed with thickening of the urinary bladder wall. No free air is evident. 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 IMPRESSION: 1. There is a moderate amount of retained colonic feces. 2. A catheter is present within the distal aspect of the ilium as described above. Please correlate with patient's history as to the type of catheter this may be and if a has been inserted intentionally. 3. PEG catheter in good position 4. Chronic right lower lobe consolidation 5. Collapsed urinary bladder with thickened wall Dictated by: Syed Ch MD 10/08/2020 14:22 Syed Ch MD in [place] 10/08/2020 14:22
--- NOTE | 2020-10-08 12:15 | PC.NURSE ---
multiple attempts to place catheter per nursing staff and ER MD without success. ER MD states to apply condom catheter to attempt to obtain UA.
--- NOTE | 2020-10-08 12:16 | PC.NURSE ---
contacted lab to request they come down and draw blood on pt.
[2020-10-08 13:05] LABS: Basophils # 0.3 K/mm3 (0-0.2); Basophils % 1.5 % (0.1-2.0); Eosinophils # 0.1 K/mm3 (0.0-0.4); Eosinophils % 0.5 % (0.1-12.0); Hematocrit 56.9 % (42.0-52.0); Hemoglobin 17.6 g/dL (14.1-18.0); Lymphocytes # 1.9 K/mm3 (0.7-4.5); Lymphocytes % 8.7 % (10-50); Mean Corpuscular Hemoglobin 32.2 pg (27.0-31.2); Mean Corpuscular Volume 104.1 fl (80-94); Mean Platelet Volume 10.1 fl (7.4-10.4); Monocytes # 1.2 K/mm3 (0.1-1.0); Monocytes % 5.6 % (1.7-9.3); Neutrophils # 17.9 K/mm3 (1.8-7.8); Neutrophils % 83.7 % (37.0-80.0); Platelet Count 447 K/mm3 (142-424); Red Blood Count 5.47 M/mm3 (4.60-6.20); Red Cell Distribution Width 14.5 % (11.5-17.5); White Blood Count 21.4 K/mm3 (4.8-10.8)
[2020-10-08 13:07] LABS: Ammonia 55 umol/L (9-30); MANUAL DIFFERENTIAL MANUAL DIFFERENTIAL (MANUAL DIFF)
[2020-10-08 13:09] LABS: Lactic Acid 3.2 mmol/L (0.7-2.1)
[2020-10-08 13:13] LABS: Potassium 4.3 mmoL/L (3.5-5.1)
[2020-10-08 13:15] LABS: Alanine Aminotransferase 30 U/L (12-78); Aspartate Amino Transferase 38 U/L (17-59); Blood Urea Nitrogen 53 mg/dl (9-20); Chloride 132 mmol/L (98-107); Creatinine Clearance Estimated 49 mL/min (50-200); Estimated Glomerular Filt Rate 52 ml/min (>60); GFR (African American) 63 ML/MIN (>60); Sodium 176 mmol/L (136-145)
[2020-10-08 13:16] LABS: Albumin Level 4.8 g/dl (3.5-5.0); Albumin/Globulin Ratio 0.9 (1.1-1.8); Alkaline Phosphatase 176 U/L (38-126); Anion Gap 19.3 mEq/L (5-15); Anisocytosis 1+; Bilirubin,Total 0.8 mg/dl (0.2-1.3); Calcium 10.6 mg/dl (8.4-10.2); Carbon Dioxide 29 mmol/L (22.0-30.0); Globulin 5.1 g/dL (1.3-3.2); Glucose 143 mg/dl (74-100); Lymphocytes % 13 % (10-50); Macrocytosis 1+; Monocytes % 9 % (2-9); Neutrophils % 72 % (42-76); Platelet Estimate Normal; Total Cells Counted 100; Total Protein,Serum 9.9 g/dl (6.3-8.2)
--- NOTE | 2020-10-08 13:16 | PC.NURSE ---
condom catheter applied at this time to obtain UA pt repositioned in bed, pt laying on his back at this time, pt had been on his R side. will continue to monitor
[2020-10-08 13:26] LABS: Lipase 29 U/L (23-300)
[2020-10-08 13:31] LABS: Valproic Acid, (Depakene) 33.5 ug/ml (50-100)
--- NOTE | 2020-10-08 13:31 | PC.NURSE ---
pt to CT
[2020-10-08 13:39] LABS: Coronavirus 19 IgG Antibody Positive (Negative); Coronavirus 19 IgM Antibody Negative (Negative)
[2020-10-08 13:45] LABS: Procalcitonin 0.209 ng/mL (0.0-2.0)
[2020-10-08 14:41] LABS: Microscopic, Urine URINE MICROSCOPIC (MICROSCOPIC)
[2020-10-08 14:43] LABS: Adenovirus,PCR Not Detected (NotDetected); Bordetella Pertussis Not Detected (NotDetected); Chlamydophila Pneumoniae, PCR Not Detected (NotDetected); Coronavirus 19, PCR Not Detected (NotDetected); Coronavirus 229E Not Detected (NotDetected); Coronavirus NL63 Not Detected (NotDetected); Coronavirus OC43 Not Detected (NotDetected); Coronovirus HKU1,PCR Not Detected (NotDetected); Human Metapneumovirus Not Detected (NotDetected); Influenza A, PCR Not Detected (NotDetected); Influenza AH1, 2009 Not Detected (NotDetected); Influenza AH1, PCR Not Detected (NotDetected); Influenza AH3,PCR Not Detected (NotDetected); Influenza B, PCR Not Detected (NotDetected); Mycoplasma Pneumoniae, PCR Not Detected (NotDetected); Parainfluenza 1, PCR Not Detected (NotDetected); Parainfluenza 2, PCR Not Detected (NotDetected); Parainfluenza 3, PCR Not Detected (NotDetected); Parainfluenza 4, PCR Not Detected (NotDetected); Respiratory Syncytial Virus Not Detected (NotDetected); Rhinovirus/Enterovirus Not Detected (NotDetected)
--- NOTE | 2020-10-08 14:43 | PC.NURSE ---
ER spoke with Dr. Hu at this time, agreeable for admission
[2020-10-08 14:57] LABS: Appearance,Urine SL CLOUDY (Clear); Blood, Urine 3+ (Negative); Color,Urine YELLOW (Yellow); Glucose,Urine (UA) Negative (Negative); Ketones,Urine Negative (Negative); Leukocyte Esterase,Urine Negative (Negative); Nitrate,Urine Negative (Negative); Protein,Urine 2+ (Negative); Specific Gravity, Urine <= 1.005 (1.005-1.030); Urobilinogen,Urine 0.2 EU/dl (0.2)
[2020-10-08 15:03] LABS: Bilirubin,Urine Negative (Negative)
[2020-10-08 15:08] LABS: WBC,Urine Occasional #/hpf (0-3)
--- NOTE | 2020-10-08 15:09 | PC.NURSE ---
lab staff states approx 55 mins left on covid swab
--- NOTE | 2020-10-08 16:35 | PC.NURSE ---
report given to PETER Bernabe, states pt assigned room is clean they are just switching beds around for pt so pt will have a bed alarm and a weigh bed.
--- NOTE | 2020-10-08 16:53 | PC.NURSE ---
arrived to the floor
[2020-10-08 16:59] LABS: Reflex Lactic Add Lactic Reflex
[2020-10-08 17:32] LABS: Lactic Acid Follow Up (RFLX 1) 2.2 mmol/L (0.7-2.1)
--- NOTE | 2020-10-08 18:29 | DIET.NUTRFU ---
Nutritional assessment, IP/consult completed. Pt from [facility] admit with HCAP, severe sepsis, critical hypernatremia and elevated Ammonia. Pt with alcoholic encephalopathy, also with severe protein calorie malnutrition dx last year and has lost additional 16% body weight since that time. Pt is on Isosource 1.5 and receiving highest rate recommended for tube feeding at [facility] (40kcal/kg) and has been receiving a total of 1794ml free water daily. Labs indicate prolonged dehydration. Significant weight loss is concerning as pt has been receiving such high energy/protein intake assuming tube feedings have been running as ordered. Most similar formula available at [facility] is Osmolite 1.2. Regimen selected to provide same energy/protein pt has been tolerating, will increase water flushes to meet fluid needs as IVF is dc'd, currently within fluid needs. Recommend initiating continuous tube feeding regimen of Osmolite 1.2 at 20ml/hr and advance rate by 10ml/hr q 8hr as tolerated to goal rate of 75ml/hr. Pt currently receiving IVF of NS at 100ml/hr, recommend minimal water flushes of 30-60ml q 4h/for irrigation. Recommend decreasing IVF as TF regimen nears goal rate, formula provides significant free water of 1415ml. This regimen provides 2070kcal, 96g protein, 272g cho, 68g fat, and 1415ml free water.
--- NOTE | 2020-10-08 18:47 | PC.NURSE ---
1735 RESIDUAL 0ML.
--- NOTE | 2020-10-08 18:52 | PC.NURSE ---
PER MD DOHERTY, HOLD THE TUBE FEEDING UNTIL AFTER SURGERY CONSULT TOMORROW.
[2020-10-08 19:18] LABS: Reflex Lactic (2 hrs) Add Lactic Reflex
[2020-10-08 19:58] LABS: Lactic Acid Follow up (RFLX 2) 1.2 mmol/L (0.7-2.1)
[2020-10-09 04:00] VITALS: BP 115/74; PULSE 107; RESP 18; TEMP 37.3; O2SAT 98
[2020-10-09 04:58] VITALS: BMI 19.1
[2020-10-09 07:25] LABS: Potassium 3.9 mmoL/L (3.5-5.1)
[2020-10-09 07:27] LABS: Basophils # 0.1 K/mm3 (0-0.2); Basophils % 0.7 % (0.1-2.0); Eosinophils # 0.1 K/mm3 (0.0-0.4); Eosinophils % 0.8 % (0.1-12.0); Hematocrit 43.4 % (42.0-52.0); Lymphocytes # 3.6 K/mm3 (0.7-4.5); Lymphocytes % 21.5 % (10-50); Mean Corpuscular HGB Conc 29.4 g/dL (31.8-35.4); Mean Corpuscular Hemoglobin 30.7 pg (27.0-31.2); Mean Corpuscular Volume 104.4 fl (80-94); Mean Platelet Volume 9.8 fl (7.4-10.4); Monocytes # 1.1 K/mm3 (0.1-1.0); Monocytes % 6.2 % (1.7-9.3); Neutrophils # 11.9 K/mm3 (1.8-7.8); Neutrophils % 70.7 % (37.0-80.0); Platelet Count 351 K/mm3 (142-424); Red Blood Count 4.15 M/mm3 (4.60-6.20); Red Cell Distribution Width 13.6 % (11.5-17.5); White Blood Count 16.9 K/mm3 (4.8-10.8)
[2020-10-09 07:28] LABS: Anion Gap 10.9 mEq/L (5-15); Blood Urea Nitrogen 46 mg/dl (9-20); Carbon Dioxide 29 mmol/L (22.0-30.0); Creatinine Clearance Estimated 63 mL/min (50-200); Estimated Glomerular Filt Rate 77 ml/min (>60); GFR (African American) 94 ML/MIN (>60); Glucose 111 mg/dl (74-100)
--- NOTE | 2020-10-09 07:33 | P.CONPHA_ITS ---
[facility] [place] Pharmacy VTE Monitoring - Patient Demographics Admission date: 10/08/20 Report Date: 10/09/20 Time: 07:33 Allergies/Adverse Reactions: Patient Allergies No Known Allergies Allergy (Verified 10/08/20 12:11) Height: 1.68 m Weight: 53.977 kg Patient Problems: Current Active Problems (This Medical Record has been edited. Action required.) HCAP (healthcare-associated pneumonia) (Acute) Hypoxia (Acute) Hypernatremia (Acute) Severe sepsis (Acute) - VTE Risk Labs: VTE Related Lab Results Hgb 17.6 g/dL (14.1-18.0) 10/08/20 12:40 Hct 56.9 % (42.0-52.0) H 10/08/20 12:40 Plt Count 447 K/mm3 (142-424) H 10/08/20 12:40 BUN 53 mg/dl (9-20) H 10/08/20 12:40 Creatinine 1.40 mg/dl (0.66-1.25) H 10/08/20 12:40 Estimated Creat Clear 49 mL/min (50-200) 10/08/20 12:40 VTE Score: 6 VTE Risk Level: Moderate Risk - Prophylaxis VTE Prophylaxis Ordered?: Yes Types of VTE Prophylaxis: TEDS Knee High Location of Applied Device: Bilateral Lower Extremeties
[2020-10-09 07:34] LABS: MANUAL DIFFERENTIAL MANUAL DIFFERENTIAL (MANUAL DIFF)
[2020-10-09 07:57] LABS: Chloride 139 mmol/L (98-107); Sodium 175 mmol/L (136-145)
[2020-10-09 07:59] LABS: Calcium 9.1 mg/dl (8.4-10.2)
[2020-10-09 08:00] VITALS: BP 104/65; PULSE 110; RESP 18; TEMP 36.4; O2SAT 100
--- NOTE | 2020-10-09 08:22 | HMH.HP ---
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 Long-term resident of jail, transferred to outside hospital last month with COVID-19 pneumonia, recovered but since that time has had lots of issues with agitation, worsening physiologic status. Transferred to [facility] because of fever, mental status changes, found to be septic, significantly hyponatremic with sodium 175. Admitted to hospital for broad-spectrum antibiotics, fluids and further care. On imaging of his belly was found to have foreign body in the area of the ileum, consistent with possible broken G-tube. [facility] History I have reviewed the patient's past medical history: Yes Medical History: Reports:: BPH, Congestive Heart Failure, Chronic Obstructive Pulmonary Disease (COPD), Dementia, Hyperlipidemia, Hypertension, Seizures Denies:: Cancer, Diabetes Mellitus Type 1, Diabetes Mellitus Type 2, Internal Pacemaker, MRSA *Have you ever received a pneumonia vaccine?: Yes *Have you received a flu vaccine this season?: Yes Other Medical History: Reports: Liver Disease Other Surgeries: No: Pacemaker Amputation: No - *Social History Smoking Status: Former smoker Tobacco Type: cigarettes # Packs/Day (cigarettes): 1 #Yrs smoked (if former smoker): 15 Alcohol Intake: never Alcohol Intake Frequency:: other *Occupational Status:: disabled Housing: jail Household Members: other *Travel in the last 8 weeks: None Family Hx:: Unable to obtain Review of Systems - Review of Systems Review of systems:: unable to obtain Meds Home Medications Medication Instructions Recorded Confirmed Type Ascorbic Acid 500 mg G-TUBE DAILY 10/08/20 10/08/20 History Aspirin [Aspirin 325mg Tab] 325 mg G-TUBE BID 10/08/20 10/08/20 History Cholecalciferol (Vitamin D3) 400 unit G-TUBE HS 10/08/20 10/08/20 History [Vitamin D3] Doxazosin Mesylate [Doxazosin 1mg 1 mg G-TUBE DAILY 10/08/20 10/08/20 History Tab] Folic Acid 1 mg G-TUBE DAILY 10/08/20 10/08/20 History LORazepam [Ativan 1mg tablet] 1 mg G-TUBE QID 10/08/20 10/08/20 History Lactobacillus Acidophilus 1 each G-TUBE DAILY 10/08/20 10/08/20 History [Acidophilus] Melatonin/Pyridoxine HCl (B6) 1 each G-TUBE HS 10/08/20 10/08/20 History [Melatonin 3 mg Tablet] Metoclopramide HCl [Metoclopramide 10 mg G-TUBE BID 10/08/20 10/08/20 History 10mg Tablet] Mupirocin [Bactroban 2% Ointment 1 applicatio TOPICAL DAILY 10/08/20 10/08/20 History 22gm tube] Pantoprazole Sodium [Protonix 40mg 40 mg G-TUBE DAILY 10/08/20 10/08/20 History (granule) packet] Potassium Chloride [Pot Chlor 20 meq G-TUBE DAILY 10/08/20 10/08/20 History 20mEq/15mL Oral Soln UDC] Pyridoxine HCl (Vitamin B6) 50 mg G-TUBE DAILY 10/08/20 10/08/20 History [Pyridoxine (B6) 50mg Tablet] Quetiapine Fumarate 150 mg G-TUBE DAILY 10/08/20 10/08/20 History Quetiapine Fumarate 250 mg G-TUBE BID 10/08/20 10/08/20 History Thiamine HCl 100 mg G-TUBE DAILY 10/08/20 10/08/20 History Tiotropium Br/Olodaterol HCl 2.5 mcg IH DAILY 10/08/20 10/08/20 History [Stiolto Respimat Inhal [place]] Valproic Acid (As Sodium Salt) 5 ml G-TUBE BID 10/08/20 10/08/20 History [Valproic Acid] Zinc 50 mg G-TUBE DAILY 10/08/20 10/08/20 History polyethylene glycoL 3350 [Miralax 17 gm G-TUBE DAILY 10/08/20 10/08/20 History 17gm Packet] Allergies Allergy/AdvReac Type Severity Reaction Status Date / Time No Known Allergies Allergy Verified 10/08/20 12:11 Exam Vital signs and Labs for Last 24 Hours: Temp Pulse Resp BP Pulse Ox 99.1 F 107 H 18 115/74 98 10/09/20 04:00 10/09/20 04:00 10/09/20 04:00 10/09/20 04:00 10/09/20 04:00 Laboratory Result
--- NOTE | 2020-10-09 10:01 | HMH.PHAINT ---
home medication list completed using MAR from skilled nursing
--- NOTE | 2020-10-09 10:02 | SW/DCPLANNER ---
Addendum entered by Kelli Barnes 10/09/20 13:37: RECEIVED REFERRAL FOR THIS PATIENT FOR A HOSPICE CONSULT...I HAVE SENT REFERRAL AND SPOKEN WITH [facility]. THE NURSE WILL CALL HIS GUARDIAN AND SEE IF HE WISHES TO PURSUE ANY END OF LIFE/PALLIATIVE CARE AT THE LONGTERM...IF NOT HE WILL STAY AT [facility] UNTIL FURTHER TREATED AND THEN DISCHARGE BACK. I DID HAVE A CONVERSATION WITH BROTHER THIS MORNING AND HE WANTS HIM TO REMAIN A FULL CODE AND STATED HE DIDN'T KNOW IF HE COULD MAKE HIM TO WHERE HE COULD JUST BE PALLIATIVE CARE... HOSPICE NURSE CALLED ME WHILE I WAS TYPING THIS NOTE AND GUARDIAN IS NOT INTERESTED IN HOSPICE AND WANTS HIM TO HAVE THERAPY. Original Note: SENT UPDATES ON THIS PATIENT TO THE LONGTERM ([facility]) I HAVE ALSO SPOKEN WITH HIS GUARDIAN, BROTHER MIR SAINI REGARDING HOSPICE FOR THIS PATIENT...HE SAID HE WOULD SPEAK WITH THEM BUT HE IS NOT SURE IF HE CAN MAKE HIM A DNR....PATIENT NOT READY TODAY BUT COULD BE IN THE AM... WILL FOLLOW UP WITH MD TO SEE IF HE WILL DISCHARGE ON TUESDAY...
[2020-10-09 10:07] LABS: Lymphocytes % 27 % (10-50); Monocytes % 5 % (2-9); Neutrophils % 68 % (42-76); Platelet Estimate Normal; Total Cells Counted 100
[2020-10-09 10:08] LABS: Macrocytosis 1+
[2020-10-09 10:10] LABS: Hemoglobin 12.7 g/dL (14.1-18.0)
--- NOTE | 2020-10-09 11:09 | HMH.GSCON ---
*Admission Date: 10/08/20 *Reason for consult:: Gastrointestinal foreign body *History of present illness: Is a 55-year-old gentleman seen in consultation from the service of Dr. Hu for evaluation regarding a possible gastrointestinal foreign body. Please see HPI from admission history and physical forwarded below. 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 Long-term resident of detention, transferred to outside hospital last month with COVID-19 pneumonia, recovered but since that time has had lots of issues with agitation, worsening physiologic status. Transferred to [facility] because of fever, mental status changes, found to be septic, significantly hyponatremic with sodium 175. Admitted to hospital for broad-spectrum antibiotics, fluids and further care. On imaging of his belly was found to have foreign body in the area of the ileum, consistent with possible broken G-tube. Note: There is no evidence of current or recent bowel obstruction secondary to this foreign body. History with regard to the timing of a possible dislodged feeding tube is uncertain. Review of Systems - Review of Systems Review of systems:: unable to obtain [place] History Medical History: Reports:: BPH, Congestive Heart Failure, Chronic Obstructive Pulmonary Disease (COPD), Dementia, Hyperlipidemia, Hypertension, Seizures Denies:: Cancer, Diabetes Mellitus Type 1, Diabetes Mellitus Type 2, Internal Pacemaker, MRSA *Have you ever received a pneumonia vaccine?: Yes *Have you received a flu vaccine this season?: Yes Other Medical History: Reports: Liver Disease Other Surgeries: No: Pacemaker Amputation: No - *Social History Smoking Status: Former smoker Tobacco Type: cigarettes # Packs/Day (cigarettes): 1 #Yrs smoked (if former smoker): 15 Alcohol Intake: never Alcohol Intake Frequency:: other *Occupational Status:: disabled Housing: detention Household Members: other *Travel in the last 8 weeks: None Family Hx:: Unable to obtain Meds Home Medications Medication Instructions Recorded Confirmed Type Ascorbic Acid 500 mg G-TUBE DAILY 10/08/20 10/08/20 History Aspirin [Aspirin 325mg Tab] 325 mg G-TUBE BID 10/08/20 10/08/20 History Cholecalciferol (Vitamin D3) 400 unit G-TUBE HS 10/08/20 10/08/20 History [Vitamin D3] Doxazosin Mesylate [Doxazosin 1mg 1 mg G-TUBE DAILY 10/08/20 10/08/20 History Tab] Folic Acid 1 mg G-TUBE DAILY 10/08/20 10/08/20 History LORazepam [Ativan 1mg tablet] 1 mg G-TUBE QID 10/08/20 10/08/20 History Lactobacillus Acidophilus 1 cap G-TUBE DAILY 10/08/20 10/09/20 History [Acidophilus] Melatonin/Pyridoxine HCl (B6) 1 tab G-TUBE HS 10/08/20 10/09/20 History [Melatonin 3 mg Tablet] Metoclopramide HCl [Metoclopramide 10 mg G-TUBE BID 10/08/20 10/08/20 History 10mg Tablet] Mupirocin [Bactroban 2% Ointment 1 applicatio TOPICAL QSHIFT PRN 10/08/20 10/09/20 History 22gm tube] Pantoprazole Sodium [Protonix 40mg 40 mg G-TUBE DAILY 10/08/20 10/08/20 History (granule) packet] Potassium Chloride [Pot Chlor 20 meq G-TUBE DAILY 10/08/20 10/08/20 History 20mEq/15mL Oral Soln UDC] Pyridoxine HCl (Vitamin B6) 50 mg G-TUBE DAILY 10/08/20 10/08/20 History [Pyridoxine (B6) 50mg Tablet] Quetiapine Fumarate 150 mg G-TUBE DAILY 10/08/20 10/08/20 History Quetiapine Fumarate 250 mg G-TUBE BID 10/08/20 10/08/20 History Thiamine HCl 100 mg G-TUBE DAILY 10/08/20 10/08/20 History Tiotropium Br/Olodaterol HCl 1 inhalation IH DAILY 10/08/20 10/09/20 History [Stiolto Respimat Inhal [place]] Valproic Acid (As [place]
[2020-10-09 16:00] VITALS: BP 124/76; PULSE 86; RESP 16; TEMP 37; O2SAT 98
--- NOTE | 2020-10-09 18:34 | PC.NURSE ---
Pt is alert to self. He has tried multiple times to get out of bed. Bed alarm is on and safety measures in place. Peg tube site to abd. Erythema noted to insertion site. Tube feeds initiated at 20ml/hr at this time. Pt tolerating well at this time. No change since morning assessment. Oral care provided per LEXY Pat. Will continue to monitor.
[2020-10-09 19:28] VITALS: BP 147/63; PULSE 73; RESP 18; TEMP 36; O2SAT 95
--- NOTE | 2020-10-09 23:46 | PC.NURSE ---
[address] PT AWAKE . TRASH AND LINENS EMPTIED
[2020-10-10] VITALS: BP 106/56; PULSE 110; RESP 16; TEMP 36.3; O2SAT 96
--- NOTE | 2020-10-10 02:28 | PC.NURSE ---
tube feed increased to 30 mL/hr at 2200
[2020-10-10 04:00] VITALS: BP 109/65; PULSE 111; RESP 18; TEMP 36.3; O2SAT 95
--- NOTE | 2020-10-10 04:43 | PC.NURSE ---
pt is alert to person and birthdate, has been anxious and restless this shift, has yelled out numerous times this shift, bed alarm on for safety, seizure pads in place, abdomen flat, soft and non-tender, no BM this shift, residuals for tube feedings have been 0 so far, feed currently running at 30mL/hr, head above 30 degrees, pt is independent in movement in bed
[2020-10-10 05:00] VITALS: BMI 19.8
--- NOTE | 2020-10-10 06:00 | XR_ITS ---
PROCEDURE: XR ACUTE ABDOMEN SERIES CLINICAL INDICATION: FB in small bowel Follow-up foreign body COMPARISON: CT CT ABDOMEN PELVIS WO CON from 05/11/2019 CR XR KUB from 08/15/[address] ABDOMEN PELVIS W CON from 10/08/2020 FINDINGS: A frontal view of the chest shows chronic changes with COPD with patchy infiltrate in the right lower lobe. Upright and supine views of the abdomen show moderate amount of retained colonic feces. There is a PEG catheter in place in the left upper quadrant. In addition, there is a free portion of the catheter noted in the right lower quadrant with the bulb insufflating at the cecal region. This had a similar appearance on 08/15/2020 not significantly changed. No intestinal obstruction or free air. Avascular necrosis involves the left hip. Other findings:None. IMPRESSION: Moderate amount of retained colonic feces. No change in the broken off catheter presumed loose PEG tube which resides in the right lower quadrant. Right lower lobe pneumonia with COPD Dictated by: Syed Ch MD 10/10/2020 06:36 Syed Ch MD in [place] 10/10/2020 06:36
--- NOTE | 2020-10-10 06:13 | PC.NURSE ---
[address] PATIENT ASLEEP. TRASH AND LINENS EMPTIED
[2020-10-10 06:57] LABS: Basophils # 0.1 K/mm3 (0-0.2); Eosinophils # 0.4 K/mm3 (0.0-0.4); Eosinophils % 4.7 % (0.1-12.0); Hematocrit 40.1 % (42.0-52.0); Hemoglobin 11.9 g/dL (14.1-18.0); Lymphocytes # 2.6 K/mm3 (0.7-4.5); Lymphocytes % 27.7 % (10-50); Mean Corpuscular HGB Conc 29.6 g/dL (31.8-35.4); Mean Corpuscular Hemoglobin 30.9 pg (27.0-31.2); Mean Corpuscular Volume 104.7 fl (80-94); Mean Platelet Volume 10.1 fl (7.4-10.4); Monocytes # 0.5 K/mm3 (0.1-1.0); Monocytes % 5.8 % (1.7-9.3); Neutrophils # 5.6 K/mm3 (1.8-7.8); Neutrophils % 60.8 % (37.0-80.0); Platelet Count 331 K/mm3 (142-424); Red Blood Count 3.83 M/mm3 (4.60-6.20); Red Cell Distribution Width 13.6 % (11.5-17.5); White Blood Count 9.3 K/mm3 (4.8-10.8)
[2020-10-10 07:04] LABS: Potassium 3.4 mmoL/L (3.5-5.1)
--- NOTE | 2020-10-10 07:06 | HMH.GSPN ---
Subjective Narrative: Per nursing staff, the patient is tolerating his tube feeds without difficulty. Progress Note: A&P (1) HCAP (healthcare-associated pneumonia) Status: Acute (2) Hypernatremia Status: Acute (3) Severe sepsis Status: Acute (4) MERI (acute kidney injury) Status: Acute (5) Gastrojejunostomy tube dislodgement Status: Acute Assessment and plan: Continue tube feeds as tolerated. Continue to evaluate for signs of obstruction secondary to dislodged feeding tube in ileum. Follow-up serial abdominal films. Exam Vital signs and Labs for Last 24 Hours: Temp Pulse Resp BP Pulse Ox 97.4 F L 111 H 18 109/65 L 95 10/10/20 04:00 10/10/20 04:00 10/10/20 04:00 10/10/20 04:00 10/10/20 04:00 Laboratory Results - last 24 hr 10/09/20 07:10: WBC 16.9 H, RBC 4.15 L, Hgb 12.7 L D, Hct 43.4, MCV 104.4 H, MCH 30.7, MCHC 29.4 L, RDW 13.6, Plt Count 351, MPV 9.8, Neut % (Auto) 70.7, Lymph % (Auto) 21.5, [place] % (Auto) 6.2, Eos % (Auto) 0.8, Baso % (Auto) 0.7, Neut # (Auto) 11.9 H, Lymph # (Auto) 3.6, [place] # (Auto) 1.1 H, Eos # (Auto) 0.1, Baso # (Auto) 0.1, Total Counted 100, Neutrophils % (Manual) 68, Lymphocytes % (Manual) 27, Monocytes % (Manual) 5, Platelet Estimate Normal, Macrocytosis 1+ 10/09/20 07:10: Sodium 175 H*, Potassium 3.9, Chloride 139 H, Carbon Dioxide 29, Anion Gap 10.9, BUN 46 H, Creatinine 1.00 D, Estimated Creat Clear 63, Estimated GFR 77, Est GFR ( Amer) 94 D, Glucose 111 H D, Calcium 9.1 D 10/10/20 06:16: WBC 9.3 D, RBC 3.83 L, Hgb 11.9 L, Hct 40.1 L, MCV 104.7 H, MCH 30.9, MCHC 29.6 L, RDW 13.6, Plt Count 331, MPV 10.1, Neut % (Auto) 60.8, Lymph % (Auto) 27.7, [place] % (Auto) 5.8, Eos % (Auto) 4.7, Baso % (Auto) 1.0, Neut # (Auto) 5.6, Lymph # (Auto) 2.6, [place] # (Auto) 0.5, Eos # (Auto) 0.4, Baso # (Auto) 0.1 I & O for Last 24 hours: Intake & Output 10/07/20 10/08/20 10/09/20 10/10/20 11:59 11:59 11:59 11:59 Intake Total 1099 / 1099 Balance 1099 Weight 119 lb 123 lb 4 oz - Constitutional no acute distress
[2020-10-10 07:07] LABS: Blood Urea Nitrogen 33 mg/dl (9-20); Calcium 9.1 mg/dl (8.4-10.2); Carbon Dioxide 26 mmol/L (22.0-30.0); Creatinine Clearance Estimated 82 mL/min (50-200); Estimated Glomerular Filt Rate 100 ml/min (>60); GFR (African American) 121 ML/MIN (>60); Glucose 115 mg/dl (74-100)
[2020-10-10 07:09] LABS: Anion Gap 10.4 mEq/L (5-15)
[2020-10-10 07:10] LABS: Chloride 142 mmol/L (98-107); Sodium 175 mmol/L (136-145)
--- NOTE | 2020-10-10 07:12 | PC.NURSE ---
0600 tube feed to 40mL
[2020-10-10 08:00] VITALS: BP 113/73; PULSE 112; RESP 18; TEMP 36.3; O2SAT 96
--- NOTE | 2020-10-10 08:34 | HMH.ACPN2 ---
Internal Medicine - PN: Subj *Date: 10/10/20 *Time: 14:04 Interval history: Patient did well overnight. No acute events. Tolerating tube feeds. Continue IV fluids, unfortunately sodium still significantly elevated this morning at 175. Patient pleasantly confused, interactive on exam. Denies nausea or vomiting. No oxygen requirement this morning. Stable on room air Exam Vital signs and Labs for Last 24 Hours: Temp Pulse Resp BP Pulse Ox 97.3 F L 112 H 18 113/73 96 10/10/20 08:00 10/10/20 08:00 10/10/20 08:00 10/10/20 08:00 10/10/20 08:00 Laboratory Results - last 24 hr 10/09/20 07:10: Hgb 12.7 L D, Total Counted 100, Neutrophils % (Manual) 68, Lymphocytes % (Manual) 27, Monocytes % (Manual) 5, Platelet Estimate Normal, Macrocytosis 1+ 10/10/20 06:16: WBC 9.3 D, RBC 3.83 L, Hgb 11.9 L, Hct 40.1 L, MCV 104.7 H, MCH 30.9, MCHC 29.6 L, RDW 13.6, Plt Count 331, MPV 10.1, Neut % (Auto) 60.8, Lymph % (Auto) 27.7, [place] % (Auto) 5.8, Eos % (Auto) 4.7, Baso % (Auto) 1.0, Neut # (Auto) 5.6, Lymph # (Auto) 2.6, [place] # (Auto) 0.5, Eos # (Auto) 0.4, Baso # (Auto) 0.1 10/10/20 06:16: Sodium 175 H*, Potassium 3.4 L, Chloride 142 H, Carbon Dioxide 26, Anion Gap 10.4, BUN 33 H D, Creatinine 0.80, Estimated Creat Clear 82, Estimated GFR 100, Est GFR ( Amer) 121 D, Glucose 115 H, Calcium 9.1 I & O for Last 24 hours: Intake & Output 10/07/20 10/08/20 10/09/20 10/10/20 23:59 23:59 23:59 23:59 Intake Total 1100 / 1100 1414 / 1414 397 / 397 Balance 1100 / 1100 1414 / 1414 397 / 397 Weight 53 kg 53.977 kg 55.905 kg Narrative: - Constitutional NAD, thin, cachectic, chronically ill appearing, alert, pleasantly confused - *Routine HEENT Exam Head: Present: normocephalic Eye: Present: EOMI, PERRL ENT: Present: mucous membranes dry - *Routine Neck Exam Present: supple. Absent: lymphadenopathy - *Routine Respiratory Exam Present: prolonged expiratory phase, rhonchi, wheezes - *Routine Cardiovascular Exam Present: RRR, tachycardia - *Routine Abdominal Exam Present: firm. Absent: tenderness Comments: Minimally distended. Does not appear to be tender. G-tube in place. - *Routine Extremities Exam Absent: cyanosis, clubbing, edema Comments: Contractures noted, poor pulses, poor tissue perfusion. - *Routine Skin Exam Present: warm. Absent: rash - *Routine Neurological Exam Present: altered mental status, Contractures noted. Assessment and Plan (1) HCAP (healthcare-associated pneumonia) Status: Acute Category: Medical Code(s): J18.9 - Pneumonia, unspecified organism (2) Hypernatremia Status: Acute Category: Medical Code(s): E87.0 - Hyperosmolality and hypernatremia (3) Severe sepsis Status: Acute Category: Medical Code(s): A41.9 - Sepsis, unspecified organism; R65.20 - Severe sepsis without septic shock (4) MERI (acute kidney injury) Status: Acute Category: Medical Code(s): N17.9 - Acute kidney failure, unspecified (5) Gastrojejunostomy tube dislodgement Status: Acute Category: Medical Code(s): T85.528A - Displacement of other gastrointestinal prosthetic devices, implants and grafts, initial encounter (6) Severe protein-calorie malnutrition Status: Chronic Category: Medical Code(s): E43 - Unspecified severe protein-calorie malnutrition - Assessment and plan all Dx Assessment and Plan for all problems:: 55-year-old male with chronic debility. Continues to have significant hypernatremia. Transition fluids to D5 half-normal saline to correct free water deficit. Continue to monitor with labs twice a day. Goal sodium less than 150 before transferring back to snf. Continue tube feeds at half rate. Will monitor for bowel movements or obstruction of GI tract given foreign body in distal ileum. At this time, there is no interventional list that is able to attempt removal, will continue to monitor with serial imaging and exams for pote
--- NOTE | 2020-10-10 09:14 | DIET.NUTRFU ---
Addendum entered by Stephanie Ennis 10/10/20 09:27: current TF regimen of Osmolite 1.2 at 60ml/h provides 1728kcal, 80g protein, and 1180ml free water. Continue minimal water flushes of 30-60ml q 4h/for irrigation. Original Note: Pt tolerating initiation tube feeds well, currently running half strength at 40ml/h. Hypernatremia remained unchanged, potassium dropped past 24h. Pt started on D5/Kcl IVF at 150ml/h. Order changed to half strength and goal rate decreased to 60ml/h at this time. Will advance to full strength as tolerated. Nutritional care plan goal to cautiously advance pt to previous goal rate of 75ml/h based on tolerance and normalization nutrition related labs with consideration IVF. Will reassess goal rate when IVF changed/labs normalized. Pt mentation noted to be severely altered this am, though baseline unknown. Observed constant movement, attempting to get out of bed. Monitoring pt's mentation and following further findings regarding baseline..if pt mentation unchanged may be better candidate for bolus feeds considering aspiration risk. Would like to avoid bolus feeding if possible while pt with hypernatremia/hyperosmolality. No BM yet, no other signs obstruction. G tube site appears normal. Continuing to monitor.
[2020-10-10 11:56] VITALS: BP 103/64; PULSE 109; RESP 16; TEMP 36.7; O2SAT 96
--- NOTE | 2020-10-10 13:59 | XR_ITS ---
PROCEDURE: XR KUB CLINICAL INDICATION: check gtube placement COMPARISON: CT CT ABDOMEN PELVIS W CON from 10/08/2020 CR XR ACUTE ABDOMEN SERIES from 10/10/2020 FINDINGS: Contrast is injected into the G-tube. There is satisfactory position with no evidence of contrast extravasation. The tip of the G tube is at the lower aspect of the body of the stomach inferiorly. A loose fracture G-tube is present in the right lower quadrant. IMPRESSION: The current PEG tube in the stomach is in good position. Dictated by: ySed Ch MD 10/10/2020 14:42 Syed Ch MD in [place] 10/10/2020 14:42
[2020-10-10 16:00] VITALS: BP 115/76; PULSE 109; RESP 16; TEMP 36.4; O2SAT 98
[2020-10-10 18:00] LABS: Anion Gap 10.8 mEq/L (5-15); Blood Urea Nitrogen 23 mg/dl (9-20); Calcium 9.4 mg/dl (8.4-10.2); Carbon Dioxide 24 mmol/L (22.0-30.0); Creatinine Clearance Estimated 82 mL/min (50-200); Estimated Glomerular Filt Rate 100 ml/min (>60); GFR (African American) 121 ML/MIN (>60); Glucose 127 mg/dl (74-100); Potassium 3.8 mmoL/L (3.5-5.1)
[2020-10-10 18:05] LABS: Chloride 141 mmol/L (98-107); Sodium 172 mmol/L (136-145)
[2020-10-10 20:00] VITALS: BP 95/61; PULSE 91; RESP 17; RESP 18; TEMP 36.6; O2SAT 97
--- NOTE | 2020-10-10 21:08 | PC.NURSE ---
PATIENT CONTINUOUSLY ATTEMPTED TO GET OUT OF BED DURING THIS RN SHIFT. THIS RN EXPLAINED MULTIPLE TIMES ABOUT PATIENT'S SAFETY. PATIENT WOULD STATED, I WANT A S[place]IAG[place] LITE, I WANT TO GO SMOKE OR I WANT TO GO HOME. THIS RN HAD RESIDUAL FROM FEEDING TUBE THAT WAS CLUMPED. THIS RN PHONED DR. WALLACE AND EXPLAINED ABOUT THE RESIDUAL, THE GTUBE NOT STAYING IN PLACE AND LIQUID CONTINUOUSLY BACKING OUT OF TUBE. MD ORDERED KUB. THIS RN RECEIVED PHONE CALL FROM RADIOLOGY THAT IT IS OKAY TO USE. THIS RN CLEANED AREA AROUND INSERTION SITE AND SECURED TUBING WITH TAPE. PATIENT RIPPED APART IV TUBING, MD AWARE. NO OTHER CONCERNS AT THIS TIME.
[2020-10-11] VITALS: BP 119/74; PULSE 102; RESP 17; TEMP 36.6; O2SAT 96
--- NOTE | 2020-10-11 00:44 | PC.NURSE ---
0000 tube feeding increased to 60 mL/hr
--- NOTE | 2020-10-11 00:51 | PC.NURSE ---
0030 kangaroo pump tubing changed at this time
[2020-10-11 04:00] VITALS: BP 116/69; PULSE 102; RESP 17; TEMP 36.6; O2SAT 97
[2020-10-11 05:00] VITALS: BMI 20.1
--- NOTE | 2020-10-11 05:52 | PC.NURSE ---
shift summary pts lung sounds were slightly diminished with some coarse crackles pts sats remained 95% or greater with a rate ranging from 16-18. pt has a roe in place with clear yellow in color urine. pts tube feeding was increased to 60 mL/hr with a goal rate o 75 mL/hr. pt turns independently with the HOB at 30 degrees. pt is alert knows his name and birthday but does not know where hes at or how he got here.
--- NOTE | 2020-10-11 07:22 | HMH.ACPN2 ---
Internal Medicine - PN: Subj *Date: 10/11/20 *Time: 10:27 Interval history: Did well overnight. Tolerating tube feeds. Had large bowel movement this morning. Reviewed labs this morning, sodium improving with free water repletion. Remains afebrile. Exam Vital signs and Labs for Last 24 Hours: Temp Pulse Resp BP Pulse Ox 97.9 F 102 H 17 116/69 97 10/11/20 04:00 10/11/20 04:00 10/11/20 04:00 10/11/20 04:00 10/11/20 04:00 Laboratory Results - last 24 hr 10/10/20 17:46: Sodium 172 H*, Potassium 3.8, Chloride 141 H, Carbon Dioxide 24, Anion Gap 10.8, BUN 23 H D, Creatinine 0.80, Estimated Creat Clear 82, Estimated GFR 100, Est GFR ( Amer) 121, Glucose 127 H, Calcium 9.4 I & O for Last 24 hours: Intake & Output 10/08/20 10/09/20 10/10/20 10/11/20 23:59 23:59 23:59 23:59 Intake Total 1100 / 1100 1414 / 1414 2122 Balance 1100 / 1100 1414 / 1414 2122 Weight 53 kg 53.977 kg 55.905 kg 56.897 kg Microbiology Reports for the Last 24 Hours: Microbiology 10/08/20 12:40 Blood Blood Culture - Preliminary NO GROWTH AFTER 48 HOURS 10/08/20 12:40 Blood Blood Culture - Preliminary NO GROWTH AFTER 48 HOURS Narrative: - Constitutional NAD, thin, cachectic, chronically ill appearing, alert, pleasantly confused - *Routine HEENT Exam Head: Present: normocephalic Eye: Present: EOMI, PERRL ENT: Present: mucous membranes dry - *Routine Neck Exam Present: supple. Absent: lymphadenopathy - *Routine Respiratory Exam Present: prolonged expiratory phase, rhonchi, wheezes - *Routine Cardiovascular Exam Present: RRR, tachycardia - *Routine Abdominal Exam Present: Minimally distended. Does not appear to be tender. G-tube in place. - *Routine Extremities Exam Absent: cyanosis, clubbing, edema; No contractures noted, poor pulses, poor tissue perfusion. - *Routine Skin Exam Present: warm. Absent: rash - *Routine Neurological Exam Present: altered mental status, Contractures noted. Assessment and Plan (1) HCAP (healthcare-associated pneumonia) Status: Acute Category: Medical Code(s): J18.9 - Pneumonia, unspecified organism (2) Hypernatremia Status: Acute Category: Medical Code(s): E87.0 - Hyperosmolality and hypernatremia (3) Severe sepsis Status: Acute Category: Medical Code(s): A41.9 - Sepsis, unspecified organism; R65.20 - Severe sepsis without septic shock (4) MERI (acute kidney injury) Status: Acute Category: Medical Code(s): N17.9 - Acute kidney failure, unspecified (5) Gastrojejunostomy tube dislodgement Status: Acute Category: Medical Code(s): T85.528A - Displacement of other gastrointestinal prosthetic devices, implants and grafts, initial encounter (6) Severe protein-calorie malnutrition Status: Chronic Category: Medical Code(s): E43 - Unspecified severe protein-calorie malnutrition - Assessment and plan all Dx Assessment and Plan for all problems:: 55-year-old male with chronic debility. Continues to have significant hypernatremia, though responding appropriately to free water repletion. Continue D5 1/2 NS to correct free water deficit. Continue to monitor with labs twice a day. Goal sodium less than 150 before transferring back to [facility]. Continue tube feeds, advance to full rate today. Will monitor for bowel movements or obstruction of GI tract given foreign body in distal ileum. At this time, there is no interventional plan as he is having BMs and in NAD. - Remains afebrile and stable on room air. Continues to require inpatient management Continue antibiotics for pneumonia Full code
[2020-10-11 08:00] VITALS: BP 107/69; PULSE 102; RESP 18; TEMP 36.4; O2SAT 98
--- NOTE | 2020-10-11 08:30 | PC.NURSE ---
NOTIFIED DR WALLACE ABOUT NA 167 AND Cl 136. NO NEW ORDERS.
[2020-10-11 08:55] LABS: Basophils # 0.1 K/mm3 (0-0.2); Eosinophils # 0.8 K/mm3 (0.0-0.4); Eosinophils % 10.7 % (0.1-12.0); Hematocrit 41.2 % (42.0-52.0); Hemoglobin 12.5 g/dL (14.1-18.0); Lymphocytes # 2.6 K/mm3 (0.7-4.5); Mean Corpuscular HGB Conc 30.5 g/dL (31.8-35.4); Mean Corpuscular Hemoglobin 31.7 pg (27.0-31.2); Mean Platelet Volume 11.3 fl (7.4-10.4); Monocytes # 0.5 K/mm3 (0.1-1.0); Monocytes % 6.8 % (1.7-9.3); Neutrophils # 3.4 K/mm3 (1.8-7.8); Neutrophils % 46.5 % (37.0-80.0); Platelet Count 305 K/mm3 (142-424); Red Blood Count 3.96 M/mm3 (4.60-6.20); Red Cell Distribution Width 13.9 % (11.5-17.5); White Blood Count 7.3 K/mm3 (4.8-10.8)
--- NOTE | 2020-10-11 08:55 | HMH.GSPN ---
Subjective Narrative: Tolerating tube feeds. No evidence of any obstruction Progress Note: A&P (1) HCAP (healthcare-associated pneumonia) Status: Acute (2) Hypernatremia Status: Acute (3) Severe sepsis Status: Acute (4) MERI (acute kidney injury) Status: Acute (5) Gastrojejunostomy tube dislodgement Status: Acute (6) Severe protein-calorie malnutrition Status: Chronic Assessment and Plan for All Diagnoses:: Serial abdominal exams monitoring for evidence of obstruction. Serial abdominal films. Exam Vital signs and Labs for Last 24 Hours: Temp Pulse Resp BP Pulse Ox 97.9 F 102 H 17 116/69 97 10/11/20 04:00 10/11/20 04:00 10/11/20 04:00 10/11/20 04:00 10/11/20 04:00 Laboratory Results - last 24 hr 10/10/20 17:46: Sodium 172 H*, Potassium 3.8, Chloride 141 H, Carbon Dioxide 24, Anion Gap 10.8, BUN 23 H D, Creatinine 0.80, Estimated Creat Clear 82, Estimated GFR 100, Est GFR ( Amer) 121, Glucose 127 H, Calcium 9.4 I & O for Last 24 hours: Intake & Output 10/08/20 10/09/20 10/10/20 10/11/20 11:59 11:59 11:59 11:59 Intake Total 1100 / 1100 1811 / 181 3812 / 3812 Balance 1100 / 1100 181 / 181 3812 / 3812 Weight 119 lb 123 lb 4 oz 125 lb 7 oz Microbiology Reports for the Last 24 Hours: Microbiology 10/08/20 12:40 Blood Blood Culture - Preliminary NO GROWTH AFTER 48 HOURS 10/08/20 12:40 Blood Blood Culture - Preliminary NO GROWTH AFTER 48 HOURS - *Routine Abdominal Exam Present: soft
[2020-10-11 08:59] LABS: Potassium 3.4 mmoL/L (3.5-5.1)
[2020-10-11 09:02] LABS: Alanine Aminotransferase 19 U/L (12-78); Albumin Level 2.9 g/dl (3.5-5.0); Albumin/Globulin Ratio 0.9 (1.1-1.8); Alkaline Phosphatase 99 U/L (38-126); Anion Gap 8.4 mEq/L (5-15); Aspartate Amino Transferase 38 U/L (17-59); Bilirubin,Total 0.5 mg/dl (0.2-1.3); Blood Urea Nitrogen 16 mg/dl (9-20); Calcium 8.6 mg/dl (8.4-10.2); Carbon Dioxide 26 mmol/L (22.0-30.0); Creatinine Clearance Estimated 111 mL/min (50-200); Estimated Glomerular Filt Rate 139 ml/min (>60); GFR (African American) 169 ML/MIN (>60); Globulin 3.4 g/dL (1.3-3.2); Glucose 145 mg/dl (74-100); Magnesium 2.8 mg/dl (1.6-2.3); Total Protein,Serum 6.3 g/dl (6.3-8.2)
[2020-10-11 09:06] LABS: Chloride 136 mmol/L (98-107); Sodium 167 mmol/L (136-145)
--- NOTE | 2020-10-11 14:23 | P.PN_ITS ---
Internal Medicine - PN: Subj *Date: 10/11/20 *Time: 14:23 Exam Vital signs and Labs for Last 24 Hours: Temp Pulse Resp BP Pulse Ox 97.6 F 102 H 18 107/69 L 98 10/11/20 08:00 10/11/20 08:00 10/11/20 08:00 10/11/20 08:00 10/11/20 08:00 Laboratory Results - last 24 hr 10/10/20 17:46: Sodium 172 H*, Potassium 3.8, Chloride 141 H, Carbon Dioxide 24, Anion Gap 10.8, BUN 23 H D, Creatinine 0.80, Estimated Creat Clear 82, Estimated GFR 100, Est GFR ( Amer) 121, Glucose 127 H, Calcium 9.4 10/11/20 07:45: WBC 7.3, RBC 3.96 L, Hgb 12.5 L, Hct 41.2 L, MCV 104.0 H, MCH 31.7 H, MCHC 30.5 L, RDW 13.9, Plt Count 305, MPV 11.3 H, Neut % (Auto) 46.5, Lymph % (Auto) 35.0, [place] % (Auto) 6.8, Eos % (Auto) 10.7, Baso % (Auto) 1.0, Neut # (Auto) 3.4, Lymph # (Auto) 2.6, [place] # (Auto) 0.5, Eos # (Auto) 0.8 H, Baso # (Auto) 0.1 10/11/20 07:45: Sodium 167 H*, Potassium 3.4 L, Chloride 136 H, Carbon Dioxide 26, Anion Gap 8.4, BUN 16 D, Creatinine 0.60 L D, Estimated Creat Clear 111, Estimated GFR 139, Est GFR ( Amer) 169 D, Glucose 145 H, Calcium 8.6, Magnesium 2.8 H, Total Bilirubin 0.5, AST 38, ALT 19 D, Alkaline Phosphatase 99, Total Protein 6.3 D, Albumin 2.9 L, Globulin 3.4 H, Albumin/Globulin Ratio 0.9 L I & O for Last 24 hours: Intake & Output 10/08/20 10/09/20 10/10/20 10/11/20 23:59 23:59 23:59 23:59 Intake Total 1100 / 1100 1414 / 1414 2122 Output Total 0 / 0 Balance 1100 / 1100 1413 / 1413 Weight 53 kg 53.977 kg 55.905 kg 56.897 kg Microbiology Reports for the Last 24 Hours: Microbiology 10/08/20 12:40 Blood Blood Culture - Preliminary NO GROWTH AFTER 48 HOURS 10/08/20 12:40 Blood Blood Culture - Preliminary NO GROWTH AFTER 48 HOURS Assessment and Plan (1) HCAP (healthcare-associated pneumonia) Status: Acute Category: Medical Code(s): J18.9 - Pneumonia, unspecified organism (2) Hypernatremia Status: Acute Category: Medical Code(s): E87.0 - Hyperosmolality and hypernatremia (3) Severe sepsis Status: Acute Category: Medical Code(s): A41.9 - Sepsis, unspecified organism; R65.20 - Severe sepsis without septic shock (4) MERI (acute kidney injury) Status: Acute Category: Medical Code(s): N17.9 - Acute kidney failure, unspecified (5) Gastrojejunostomy tube dislodgement Status: Acute Category: Medical Code(s): T85.528A - Displacement of other gastrointestinal prosthetic devices, implants and grafts, initial encounter (6) Severe protein-calorie malnutrition Status: Chronic Category: Medical Code(s): E43 - Unspecified severe protein- calorie malnutrition The patient's infection will respond to the chosen ABx?: Yes Is the patient receiving the right drug, dose, and route?: Yes Could a more targeted ABx be ordered?: No (WBC NOW WNL, AFEBRILE, BLOOD CX NEGATIVE.)
[2020-10-11 16:00] VITALS: BP 132/57; PULSE 98; RESP 16; TEMP 36.6; O2SAT 98
--- NOTE | 2020-10-11 18:19 | PC.NURSE ---
A TO NAME ONLY. PT HAS TOLERATED RA WELL THROUGHOUT SHIFT. RESPIRATIONS REGULAR AND UNLABORED. RHONCHI NOTED THROUGHOUT. NO EDEMA NOTED. +2 PULSES NOTED THROUGHOUT. HAND CUSTOMER SERVICE ANALYST EQUAL. HYPOACTIVE BOWEL SOUNDS HEARD IN ALL 4 QUADRANTS. SOFT AND NONTENDER ABDOMEN. PT HAS HAD 1 BM THUS FAR. PEG TUBE IN PLACE. CONTINUOUS TUBE FEEDING THROUGHOUT SHIFT. RESIDUAL CHECKED Q4 HOURS. TUBE FEEDING INCREASED THIS AFTERNOON FROM 60 TO 65. PT HAS TOLERATED WELL THUS FAR. HOB ELEVATED ABOVE 45 DEGREES AT ALL TIMES. BED ALARM ON TO PROMOTE SAFETY. NO REPORTS OF PAIN THROUGHOUT SHIFT. PT HAS SLEPT MOST OF SHIFT. FLUIDS INFUSING AT 150ML/HR. CALL LIGHT WITHIN REACH. VSS. WILL CONTINUE TO MONITOR.
[2020-10-11 18:26] LABS: Anion Gap 9.7 mEq/L (5-15); Blood Urea Nitrogen 10 mg/dl (9-20); Carbon Dioxide 27 mmol/L (22.0-30.0); Creatinine Clearance Estimated 111 mL/min (50-200); Estimated Glomerular Filt Rate 139 ml/min (>60); GFR (African American) 169 ML/MIN (>60); Potassium 3.7 mmoL/L (3.5-5.1)
[2020-10-11 18:34] LABS: Glucose 100 mg/dl (74-100)
[2020-10-11 18:35] LABS: Chloride 130 mmol/L (98-107); Sodium 163 mmol/L (136-145)
--- NOTE | 2020-10-11 18:35 | PC.NURSE ---
NOTIFIED DR WALLACE ABOUT NA 163 AND Cl 130. NO NEW ORDERS. HE STATED TO CALL [facility] AND SEE WHAT REGIMEN FOR TUBE FEEDING IS AT [facility]. [facility] STAFF REPORTED PT GETS CONTINUOS TUBE FEEDINGS AT A RATE OF 65. THEY GIVE THE PATIENT A BREAK FROM TUBE FEEDINGS FROM 9AM-11AM. DR WALLACE SAID TO GIVE THE PT A BREAK FROM MIDNIGHT TO 6AM. FLUSH W 200CC AND CONTINUE WITH FLUSHS W 120CC EACH TIME. WILL FAX ORDER TO PHARMACY AND NOTIFY BOOKBINDING MACHINE OPERATOR RN.
[2020-10-11 20:00] VITALS: BP 123/78; PULSE 86; RESP 19; TEMP 36.5; O2SAT 98
[2020-10-12] VITALS: BP 117/72; PULSE 99; RESP 20; TEMP 36.9; O2SAT 98
--- NOTE | 2020-10-12 02:17 | PC.NURSE ---
0000 pts tube feeding turned off and flushed with 200 mL of free water per order
[2020-10-12 04:00] VITALS: BP 106/64; PULSE 94; RESP 18; TEMP 36.4; O2SAT 97
[2020-10-12 05:00] VITALS: BMI 20.5
--- NOTE | 2020-10-12 05:44 | PC.NURSE ---
shift summary pts lung sounds are slightly diminished with some coarse crackles. pt turns independently and is alert but somewhat confused, knows his name and birthday but does not know where hes at. pts tube feeding was at his goal rate of 65mL/hr but was turned off from 0000 -0600 per orders, tube feeding resumed at goal rate at 0600.
[2020-10-12 08:00] VITALS: BP 97/60; PULSE 108; RESP 16; TEMP 36.9; O2SAT 94; O2SAT 98
[2020-10-12 08:24] LABS: Basophils # 0.1 K/mm3 (0-0.2); Basophils % 1.1 % (0.1-2.0); Eosinophils % 7.6 % (0.1-12.0); Hematocrit 40.4 % (42.0-52.0); Hemoglobin 12.5 g/dL (14.1-18.0); Lymphocytes # 3.4 K/mm3 (0.7-4.5); Lymphocytes % 25.6 % (10-50); Mean Corpuscular HGB Conc 30.9 g/dL (31.8-35.4); Mean Corpuscular Hemoglobin 31.7 pg (27.0-31.2); Mean Corpuscular Volume 102.6 fl (80-94); Mean Platelet Volume 18.4 fl (7.4-10.4); Monocytes # 0.5 K/mm3 (0.1-1.0); Monocytes % 3.6 % (1.7-9.3); Neutrophils # 8.2 K/mm3 (1.8-7.8); Platelet Count 263 K/mm3 (142-424); Red Blood Count 3.94 M/mm3 (4.60-6.20); Red Cell Distribution Width 16.9 % (11.5-17.5); White Blood Count 13.3 K/mm3 (4.8-10.8)
[2020-10-12 08:28] LABS: Chloride 123 mmol/L (98-107)
[2020-10-12 08:31] LABS: Alanine Aminotransferase 19 U/L (12-78); Alkaline Phosphatase 100 U/L (38-126); Aspartate Amino Transferase 36 U/L (17-59); Bilirubin,Total 0.5 mg/dl (0.2-1.3); Blood Urea Nitrogen 7 mg/dl (9-20); Carbon Dioxide 27 mmol/L (22.0-30.0); Creatinine Clearance Estimated 135 mL/min (50-200); Estimated Glomerular Filt Rate 172 ml/min (>60); GFR (African American) 208 ML/MIN (>60)
[2020-10-12 08:32] LABS: Albumin/Globulin Ratio 0.9 (1.1-1.8); Calcium 8.6 mg/dl (8.4-10.2); Globulin 3.4 g/dL (1.3-3.2); Glucose 129 mg/dl (74-100); Total Protein,Serum 6.4 g/dl (6.3-8.2)
[2020-10-12 08:34] LABS: Sodium 152 mmol/L (136-145)
--- NOTE | 2020-10-12 08:40 | PC.NURSE ---
DR WALLACE NOTIFIED OF NA 152.
--- NOTE | 2020-10-12 08:40 | HMH.DCSUM ---
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 Long-term resident of correction, transferred to outside hospital last month with COVID-19 pneumonia, recovered but since that time has had lots of issues with agitation, worsening physiologic status. Transferred to [facility] because of fever, mental status changes, found to be septic, significantly hyponatremic with sodium 175. Admitted to hospital for broad-spectrum antibiotics, fluids and further care. On imaging of his belly was found to have foreign body in the area of the ileum, consistent with possible broken G-tube. Hospital Course Hospital Course: 55-year-old male with significant debility, resident long-term care facility. Dependent on tube feeds. Presented with worsening confusion. On admission diagnosed with acquired pneumonia, hypernatremia, and concern for retained foreign body in abdomen. Imaging significant for fragment of G-tube in his distal ileum. Tube feeds were resumed and he was started on broad-spectrum antibiotics for his pneumonia. Tolerated treatment well during admission. Stable on room air except for oxygen placed for comfort once overnight. Able to advance tube feeds to goal rate per correction rate. Sodium gradually improved with free water replacement. Given patient's medical stability, improvement in sodium, intolerance of G-tube feeds, he is medically stable for discharge back to correction to continue to treat pneumonia with oral antibiotics. Having bowel movements during admission, no concern for obstruction. We will continue to monitor for stool output. Would have low threshold to get x-ray of abdomen if develops concern for obstruction as fragment of feeding tube could cause some difficulty given its location in the ileum. Anticipate gradual expulsion however. No surgical intervention during hospitalization and no plan to attempt removal with colonoscopy. At this time we will continue Abx 6more days, Labs on Tuesday to assess sodium and kidney function. increase free water with feeds, flushes q4hrs 120cc water. Pending sodium on Tuesday, may need reevaluation by nutrition to address free water deficits. Objective Vital signs: Temp Pulse Resp BP Pulse Ox 97.6 F 94 H 18 106/64 L 97 10/12/20 04:00 10/12/20 04:00 10/12/20 04:00 10/12/20 04:00 10/12/20 04:00 Narrative: - Constitutional NAD, thin, cachectic, chronically ill appearing, alert, pleasantly confused - *Routine HEENT Exam Head: Present: normocephalic Eye: Present: EOMI, PERRL ENT: Present: mucous membranes dry - *Routine Neck Exam Present: supple. Absent: lymphadenopathy - *Routine Respiratory Exam Present: prolonged expiratory phase, rhonchi, wheezes - *Routine Cardiovascular Exam Present: RRR, tachycardia - *Routine Abdominal Exam Present: Minimally distended. Does not appear to be tender. G-tube in place. - *Routine Extremities Exam Absent: cyanosis, clubbing, edema; No contractures noted, poor pulses, poor tissue perfusion. - *Routine Skin Exam Present: warm. Absent: rash - *Routine Neurological Exam Present: altered mental status, Contractures noted. Results Labs on day of discharge: Labs from last 24 hours 10/12/20 10/12/20 10/11/20 08:09 08:09 17:50 WBC 13.3 H D RBC 3.94 L Hgb 12.5 L Hct 40.4 L MCV 102.6 H MCH 31.7 H MCHC 30.9 L RDW 16.9 Plt Count 263 MPV 18.4 H Neut % (Auto) 62.0 Lymph % (Auto) 25.6 [place] % (Auto) 3.6 Eos % (Auto) 7.6 Baso % (Auto) 1.1 Neut # (Auto) 8.2 H Lymph # (Auto) 3.4 [place] # (Auto) 0.5 Eos # (Auto) 1.0 H Baso # (Auto) 0.1 Sodium 152 H* 163 H* Potassium
--- NOTE | 2020-10-12 08:46 | HMH.GSPN ---
Subjective Narrative: No issues. Multiple bowel movement yesterday. Seems to be tolerating tube feeds Progress Note: A&P (1) HCAP (healthcare-associated pneumonia) Status: Acute (2) Hypernatremia Status: Acute (3) Severe sepsis Status: Resolved (4) MERI (acute kidney injury) Status: Resolved (5) Gastrojejunostomy tube dislodgement Status: Acute (6) Severe protein-calorie malnutrition Status: Chronic Assessment and Plan for All Diagnoses:: Monitor for obstruction. Exam Vital signs and Labs for Last 24 Hours: Temp Pulse Resp BP Pulse Ox 97.6 F 94 H 18 106/64 L 97 10/12/20 04:00 10/12/20 04:00 10/12/20 04:00 10/12/20 04:00 10/12/20 04:00 Laboratory Results - last 24 hr 10/11/20 07:45: WBC 7.3, RBC 3.96 L, Hgb 12.5 L, Hct 41.2 L, MCV 104.0 H, MCH 31.7 H, MCHC 30.5 L, RDW 13.9, Plt Count 305, MPV 11.3 H, Neut % (Auto) 46.5, Lymph % (Auto) 35.0, [place] % (Auto) 6.8, Eos % (Auto) 10.7, Baso % (Auto) 1.0, Neut # (Auto) 3.4, Lymph # (Auto) 2.6, [place] # (Auto) 0.5, Eos # (Auto) 0.8 H, Baso # (Auto) 0.1 10/11/20 07:45: Sodium 167 H*, Potassium 3.4 L, Chloride 136 H, Carbon Dioxide 26, Anion Gap 8.4, BUN 16 D, Creatinine 0.60 L D, Estimated Creat Clear 111, Estimated GFR 139, Est GFR ( Amer) 169 D, Glucose 145 H, Calcium 8.6, Magnesium 2.8 H, Total Bilirubin 0.5, AST 38, ALT 19 D, Alkaline Phosphatase 99, Total Protein 6.3 D, Albumin 2.9 L, Globulin 3.4 H, Albumin/Globulin Ratio 0.9 L 10/11/20 17:50: Sodium 163 H*, Potassium 3.7, Chloride 130 H, Carbon Dioxide 27, Anion Gap 9.7, BUN 10 D, Creatinine 0.60 L, Estimated Creat Clear 111, Estimated GFR 139, Est GFR ( Amer) 169, Glucose 100 D, Calcium 9.0 10/12/20 08:09: WBC 13.3 H D, RBC 3.94 L, Hgb 12.5 L, Hct 40.4 L, MCV 102.6 H, MCH 31.7 H, MCHC 30.9 L, RDW 16.9, Plt Count 263, MPV 18.4 H, Neut % (Auto) 62.0, Lymph % (Auto) 25.6, [place] % (Auto) 3.6, Eos % (Auto) 7.6, Baso % (Auto) 1.1, Neut # (Auto) 8.2 H, Lymph # (Auto) 3.4, [place] # (Auto) 0.5, Eos # (Auto) 1.0 H, Baso # (Auto) 0.1 10/12/20 08:09: Sodium 152 H*, Potassium 4.0, Chloride 123 H, Carbon Dioxide 27, Anion Gap 6.0, BUN 7 L D, Creatinine 0.50 L, Estimated Creat Clear 135, Estimated GFR 172, Est GFR ( Amer) 208 D, Glucose 129 H D, Calcium 8.6, Total Bilirubin 0.5, AST 36, ALT 19, Alkaline Phosphatase 100, Total Protein 6.4, Albumin 3.0 L, Globulin 3.4 H, Albumin/Globulin Ratio 0.9 L I & O for Last 24 hours: Intake & Output 10/09/20 10/10/20 10/11/20 10/12/20 11:59 11:59 11:59 11:59 Intake Total 1100 / 1099 / 3811 4197 / 4197 Output Total 0 / 0 Balance 1100 / 1100 1810 / 3811 4197 / 4197 Weight 119 lb 123 lb 4 oz 125 lb 7 oz 127 lb 6 oz - *Routine Abdominal Exam Present: soft
--- NOTE | 2020-10-12 09:22 | XR_ITS ---
PROCEDURE: XR CHEST PORTABLE Referring Doctor: Ravi Quintanilla Patient Age:55Y CLINICAL HISTORY: new O2 requirement Sepsis. Pneumonia. COMPARISON: CT CHESTWO CT chest wo con from 03/23/2019 CR XR CHEST PORTABLE from 05/04/2019 CR XR CHEST PORTABLE from 10/08/2020 CR XR ACUTE ABDOMEN SERIES from 10/10/2020 FINDINGS: AP portable upright chest performed today and compared to October 08 CXR The right lower lobe pneumonia just above the right hemidiaphragm is less dense but it is lower density but slightly more diffuse but overall appears to be improved. The left upper lung field remains clear. The left chest remains stable but upper normal markings project over the left 5th rib appear reflect some mild chronic changes as also seen on 2019 CXR.. Minimal old healed left rib fractures noted. The heart is normal size but pulmonary vascularity is upper normal. Likely underlying COPD changes. The patient likely has underlying chronic changes at the lower lobes bilaterally from previous pneumonia as seen on 2019 CT chest. The hilar regions are generous upper normal, but stable. No pleural effusion. No pneumothorax. IMPRESSION: Right lower lobe pneumonia-less dense slightly more slight more diffuse, but overall appears to slight improving since 10/08/2020 Dictated by: Christophe Rosenthal MD 10/12/2020 12:29 Christophe Rosenthal MD in [place] 10/12/2020 12:29
--- NOTE | 2020-10-12 09:23 | HMH.ACPN2 ---
Internal Medicine - PN: Subj *Date: 10/12/20 *Time: 09:23 Interval history: Patient remained afebrile and hemodynamically stable overnight. Reviewed labs from this morning with significant improvement in sodium level. Still hypernatremic however. Unfortunately, he was placed on oxygen overnight for an unclear reason. Appears a little bit more dyspneic this morning on exam. Also having issues with tube feeds this morning, leaking connection. Patient otherwise denies nausea, abdominal pain. Exam Vital signs and Labs for Last 24 Hours: Temp Pulse Resp BP Pulse Ox 98.4 F 108 H 16 97/60 L 94 L 10/12/20 08:00 10/12/20 08:00 10/12/20 08:00 10/12/20 08:00 10/12/20 08:00 Laboratory Results - last 24 hr 10/11/20 17:50: Sodium 163 H*, Potassium 3.7, Chloride 130 H, Carbon Dioxide 27, Anion Gap 9.7, BUN 10 D, Creatinine 0.60 L, Estimated Creat Clear 111, Estimated GFR 139, Est GFR ( Amer) 169, Glucose 100 D, Calcium 9.0 10/12/20 08:09: WBC 13.3 H D, RBC 3.94 L, Hgb 12.5 L, Hct 40.4 L, MCV 102.6 H, MCH 31.7 H, MCHC 30.9 L, RDW 16.9, Plt Count 263, MPV 18.4 H, Neut % (Auto) 62.0, Lymph % (Auto) 25.6, Ida % (Auto) 3.6, Eos % (Auto) 7.6, Baso % (Auto) 1.1, Neut # (Auto) 8.2 H, Lymph # (Auto) 3.4, Ida # (Auto) 0.5, Eos # (Auto) 1.0 H, Baso # (Auto) 0.1 10/12/20 08:09: Sodium 152 H*, Potassium 4.0, Chloride 123 H, Carbon Dioxide 27, Anion Gap 6.0, BUN 7 L D, Creatinine 0.50 L, Estimated Creat Clear 135, Estimated GFR 172, Est GFR ( Amer) 208 D, Glucose 129 H D, Calcium 8.6, Total Bilirubin 0.5, AST 36, ALT 19, Alkaline Phosphatase 100, Total Protein 6.4, Albumin 3.0 L, Globulin 3.4 H, Albumin/Globulin Ratio 0.9 L I & O for Last 24 hours: Intake & Output 10/09/20 10/10/20 10/11/20 10/12/20 23:59 23:59 23:59 23:59 Intake Total 1414 / 1414 2122 / 2122 4477 / 4477 1806 / 1806 Output Total 0 / 0 Balance 1414 / 1414 2122 / 2122 4477 / 4477 1806 / 1806 Weight 53.977 kg 55.905 kg 56.897 kg 57.776 kg Narrative: - Constitutional NAD, thin, cachectic, chronically ill appearing, alert, pleasantly confused - *Routine HEENT Exam Head: Present: normocephalic Eye: Present: EOMI, PERRL ENT: Present: mucous membranes dry - *Routine Neck Exam Present: supple. Absent: lymphadenopathy - *Routine Respiratory Exam Present: More tachypneic this morning than yesterday, rhonchi stable. No wheeze. No appreciable crackles. - *Routine Cardiovascular Exam Present: RRR, tachycardia - *Routine Abdominal Exam Present: Minimally distended. Does not appear to be tender. G-tube in place. - *Routine Extremities Exam Absent: cyanosis, clubbing, edema; No contractures noted, poor pulses, poor tissue perfusion. - *Routine Skin Exam Present: warm. Absent: rash - *Routine Neurological Exam Present: altered mental status, Contractures noted. Assessment and Plan (1) HCAP (healthcare-associated pneumonia) Status: Acute Category: Medical Code(s): J18.9 - Pneumonia, unspecified organism (2) Hypernatremia Status: Acute Category: Medical Code(s): E87.0 - Hyperosmolality and hypernatremia (3) Severe sepsis Status: Resolved Category: Medical Code(s): A41.9 - Sepsis, unspecified organism; R65.20 - Severe sepsis without septic shock (4) MERI (acute kidney injury) Status: Resolved Category: Medical Code(s): N17.9 - Acute kidney failure, unspecified (5) Gastrojejunostomy tube dislodgement Status: Acute Category: Medical Code(s): T85.528A - Displacement of other gastrointestinal prosthetic devices, implants and grafts, initial encounter (6) Severe protein-calorie malnutrition Status: Chronic Category: Medical Code(s): E43 - Unspecified severe protein-calorie malnutrition - Assessment and plan all Dx Assessment and Plan for all problems:: 55-year-old male with chronic debility. Hypernatremia continues to improve, down to 152 this morning. Unfortunately, has new oxygen requirem
[2020-10-12 12:00] VITALS: BP 103/62; PULSE 108; RESP 16; TEMP 36.8; O2SAT 98
--- NOTE | 2020-10-12 14:36 | PC.NURSE ---
CALLED REPORT TO MAXINE AT [facility].
--- NOTE | 2020-10-12 15:43 | PC.NURSE ---
ALERT TO NAME AND BIRTHDAY ONLY. PT WAS ON 3L NC AT BEGINNING OF SHIFT AND IS CURRENTLY ON RA TOLERATING WELL. RESPIRATIONS REGULAR AND UNLABORED. RHONCHI NOTED THROUGHOUT. NO EDEMA NOTED. +2 PULSES NOTED THROUGHOUT. 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 ACTIVE BOWEL SOUNDS HEARD IN ALL 4 QUADRANTS. SOFT AND NONTENDER ABDOMEN. NO BM THUS FAR. PT HAS A BRIEF ON AND HAS BEEN CHANGED NEEDED. PEG TUBE IN PLACE. CONTINUOUS TUBE FEEDING THROUGHOUT SHIFT. RESIDUAL CHECKED Q4 HOURS. TUBE FEEDING DECREASED FROM 65 TO 60 DUE TO RESIDUAL. RESIDUAL T 8 WAS 60 AND RESIDEUAL AT NOON WAS 45. PT HAS TOLERATED WELL THUS FAR. HOB ELEVATED ABOVE 45 DEGREES AT ALL TIMES. BED ALARM ON TO PROMOTE SAFETY. NO REPORTS OF PAIN THROUGHOUT SHIFT. PT HAS SLEPT MOST OF SHIFT. FLUIDS INFUSING AT 75ML/HR. CALL LIGHT WITHIN REACH. VSS. WILL CONTINUE TO MONITOR.
== END 2020-10-12 17:27 | DRG 193 ==
LOC: ER 14:34 → 2ND 19:08
PROVIDERS: Internal Medicine Adolescent Medicine; Admitting Provider Internal Medicine Adolescent Medicine; Emergency Provider Emergency Medicine; PCP Internal Medicine Adolescent Medicine; Visit Provider Internal Medicine Adolescent Medicine
DX: J18.9 Pneumonia, unspecified organism (principal); E43 Unspecified severe protein-calorie malnutrition; R65.20 Severe sepsis without septic shock; T85.518A Breakdown (mechanical) of other gastrointestinal prosthetic devices, implants and grafts, initial encounter; E51.2 Wernicke's encephalopathy; R64 Cachexia; G93.1 Anoxic brain damage, not elsewhere classified; I11.0 Hypertensive heart disease with heart failure; I50.9 Heart failure, unspecified; Z68.20 Body mass index [BMI] 20.0-20.9, adult; Z86.16 Personal history of COVID-19; Z79.899 Other long term (current) drug therapy; Z79.51 Long term (current) use of inhaled steroids; F10.21 Alcohol dependence, in remission; G40.909 Epilepsy, unspecified, not intractable, without status epilepticus; K94.29 Other complications of gastrostomy
CPT/HCPCS: 36415; 71045; 74018; 74021; 74177; 80048; 80053; 80164; 81001; 82140; 83605; 83690; 83735; 84145; 85007; 85025; 86328; 87040; 87581; 87633; 87798; 93005; 96365; 96367; 99285; J1956; Q9967; U0003

== ENCOUNTER 2020-10-13 12:54 | Emergency (ER) | payer MEDICARE, MEDICAID, SELFPAY ==
[2020-10-13 12:54] VITALS: BP 115/83; PULSE 100; RESP 16; TEMP 37; O2SAT 98; BMI 22.3
--- NOTE | 2020-10-13 12:56 | HMH.EDGENADL ---
ED Disposition Clinical Impression: Pneumonia Qualifiers: Pneumonia type: due to unspecified organism Laterality: unspecified laterality Lung location: unspecified part of lung Qualified Code(s): J18.9 - Pneumonia, unspecified organism Disposition: Xfer Intermediate Care Fac Condition on Discharge: Good Instructions: Pneumonia-Adult Additional Instructions: Patient should remain on oxygen while being treated for pneumonia. During ER visit, he has had multiple blood pressures within normal limits. Heart rate is at 100 bpm. Respirations 20 breaths/min. He appears to be at his baseline mental status. Maintained on oxygen, he seems to feel well. Please have patient brought back to the emergency department if any changes in his vital signs, mental status, or work of breathing. Referrals: PCP,No [Primary Care Provider] - - Critical Care Critical Care Time: No Attestation: On , the high probability of a clinically significant, sudden or life threatening deterioration of the following system(s) required my full and direct attention, intervention and personal management. The time I documented below is in addition to time spent performing reported procedures but includes the following listed in this critical care notation. Medical Decision Making - Medical Records Medical records reviewed: Yes: I reviewed the patient's medical records. - Gene Inquiry Pt receiving controlled substance: No Vital Signs: 10/13/20 12:54 Temperature 98.6 F Temperature Source Oral Pulse Rate [Right] 100 H Respiratory Rate 16 Blood Pressure [Right Arm] 115/83 Blood Pressure Mean [Right Arm] 93 Blood Pressure Source [Right Arm] Automatic Cuff Blood Pressure Position [Right Arm] Sitting 02 Sat by Pulse Oximetry 98 Oxygen Delivery Method Nasal Cannula Oxygen Flow Rate (LPM) 2 Medical Decision Narrative: Patient presents the emergency department with concern for low blood pressure at nursing facility. On arrival, patient does have normal blood pressure. On oxygen, which she was discharged with while he is being treated with pneumonia, he has saturations well above 90% on just 1 to 2 L. No respiratory distress and answers simple questions and appears to be at his baseline mental status. We did call back to nursing facility to discuss concerns. It seems the patient has had improvement on the oxygen which he was prescribed as needed while undergoing pneumonia treatment. I do believe patient should remain on oxygen while he is being treated with pneumonia as this appears to have improved vital signs as they all are within normal limits at this time. Patient given a 120 cc free water flush in the emergency department to ensure he continues to stay well-hydrated. He will be discharged after discussion with nursing facility with strict return precautions. We also did reach out to his brother and his brother is in agreement with this plan. Assessment: Pneumonia History of TBI History of Wernicke's Korsakoff syndrome G-tube dependence Disposition: Back to nursing facility General Adult HPI - General Stated complaint: weakness Time Seen by Provider: 10/13/20 13:10 - History of Present Illness HPI narrative: Patient 55-year-old male history of TBI/Wernicke's Korsakoff syndrome, G-tube dependence, recently diagnosed with pneumonia discharged yesterday presenting with concern for low blood pressure. Patient was discharged to nursing facility and on rounds was found to have a blood pressure of 80s over 50s millimeters of mercury. He had 88% O2 saturations off his supplemental O2 which he was discharged with. EMS arrived and put patient on 4 to 6 L O2 with saturations greater than 95% on room air. Patient arrives and actually is answer short questions and states he feels well. He specifically denies any dyspnea. - Related Data Home Medications Medication Instructions Recorded Confirmed Ascorbic Acid 500 mg G-TUBE DAILY 10/08/20
--- NOTE | 2020-10-13 13:22 | PC.NURSE ---
PT GIVEN 120CC WATER PER GTUBE
[2020-10-13 13:35] VITALS: BP 128/82; PULSE 102; RESP 16; O2SAT 98
[2020-10-13 14:18] VITALS: BP 119/85; PULSE 100; RESP 16; O2SAT 98
[2020-10-13 15:16] VITALS: BP 120/74; PULSE 84; RESP 16; TEMP 36.6; O2SAT 98
== END 2020-10-13 15:18 ==
PROVIDERS: Emergency Provider Emergency Medicine
DX: J18.9 Pneumonia, unspecified organism (principal); F10.96 Alcohol use, unspecified with alcohol-induced persisting amnestic disorder; J44.9 Chronic obstructive pulmonary disease, unspecified; F03.90 Unspecified dementia, unspecified severity, without behavioral disturbance, psychotic disturbance, mood disturbance, and anxiety; I10 Essential (primary) hypertension; I50.9 Heart failure, unspecified; E78.5 Hyperlipidemia, unspecified; Z87.891 Personal history of nicotine dependence; Z79.899 Other long term (current) drug therapy
CPT/HCPCS: 99283

== ENCOUNTER 2020-10-14 17:53 | Inpatient (IN) | payer MEDICARE, MEDICAID, SELFPAY ==
[2020-10-14] VITALS (11 sets, daily range): BP systolic 108–129; BP diastolic 70–83; PULSE 118–145; RESP 28–38; TEMP 37.7–39.9; O2SAT 95–100; BMI 21.6; BMI 16.9
--- NOTE | 2020-10-14 17:58 | ECG_ITS ---
APPROVED REPORT Exam: Resting ECG HR:147 bpm ECG Measurements Heart Rate 147 AXES KS 146 P 77 QRSd 66 QRS 108 QT 262 T 82 QTc 410 Conclusion Sinus tachycardia Rightward axis Borderline ECG Electronically signed by : Shiv Hu, 10/14/2020 22:02:25
--- NOTE | 2020-10-14 17:58 | XR_ITS ---
PROCEDURE: XR CHEST PORTABLE CLINICAL HISTORY: FEVER COMPARISON: CT CHESTWO CT chest wo con from 03/23/2019 CR XR CHEST PORTABLE from 05/04/2019 CR XR CHEST PORTABLE from 10/08/2020 CR XR CHEST PORTABLE from 10/12/2020 FINDINGS: The cardiomediastinal silhouette and pulmonary vascularity are within normal limits. Patchy density is present in the right lower lobe which may be slightly improved considering some improvement in inspiration. No acute bony abnormalities. IMPRESSION: Right lower lobe pneumonia which may be slightly improved Dictated by: Syed Ch MD 10/14/2020 20:57 Syed Ch MD in [place] 10/14/2020 20:57
[2020-10-14 18:24] LABS: Chloride 111 mmol/L (98-107); Potassium 4.1 mmoL/L (3.5-5.1); Sodium 142 mmol/L (136-145)
[2020-10-14 18:25] LABS: Basophils % 0.1 % (0.1-2.0); Eosinophils # 0.1 K/mm3 (0.0-0.4); Eosinophils % 0.7 % (0.1-12.0); Hematocrit 38.3 % (42.0-52.0); Hemoglobin 12.4 g/dL (14.1-18.0); Lymphocytes # 1.7 K/mm3 (0.7-4.5); Lymphocytes % 10.2 % (10-50); Mean Corpuscular HGB Conc 32.3 g/dL (31.8-35.4); Mean Corpuscular Hemoglobin 31.6 pg (27.0-31.2); Mean Platelet Volume 10.7 fl (7.4-10.4); Monocytes # 0.6 K/mm3 (0.1-1.0); Monocytes % 3.4 % (1.7-9.3); Neutrophils # 14.2 K/mm3 (1.8-7.8); Neutrophils % 85.6 % (37.0-80.0); Platelet Count 301 K/mm3 (142-424); Red Blood Count 3.91 M/mm3 (4.60-6.20); Red Cell Distribution Width 13.7 % (11.5-17.5); White Blood Count 16.6 K/mm3 (4.8-10.8)
[2020-10-14 18:27] LABS: Anion Gap 10.1 mEq/L (5-15); Blood Urea Nitrogen 17 mg/dl (9-20); Carbon Dioxide 25 mmol/L (22.0-30.0); Creatinine Clearance Estimated 93 mL/min (50-200); Estimated Glomerular Filt Rate 139 ml/min (>60); GFR (African American) 169 ML/MIN (>60); Lactic Acid 1.2 mmol/L (0.7-2.1)
[2020-10-14 18:28] LABS: Calcium 9.4 mg/dl (8.4-10.2); Glucose 137 mg/dl (74-100)
[2020-10-14 18:35] LABS: MANUAL DIFFERENTIAL MANUAL DIFFERENTIAL (MANUAL DIFF)
[2020-10-14 18:43] LABS: Adenovirus,PCR Not Detected (NotDetected); Bordetella Pertussis Not Detected (NotDetected); Chlamydophila Pneumoniae, PCR Not Detected (NotDetected); Coronavirus 19, PCR Not Detected (NotDetected); Coronavirus 229E Not Detected (NotDetected); Coronavirus NL63 Not Detected (NotDetected); Coronavirus OC43 Not Detected (NotDetected); Coronovirus HKU1,PCR Not Detected (NotDetected); Human Metapneumovirus Not Detected (NotDetected); Influenza A, PCR Not Detected (NotDetected); Influenza AH1, 2009 Not Detected (NotDetected); Influenza AH1, PCR Not Detected (NotDetected); Influenza AH3,PCR Not Detected (NotDetected); Influenza B, PCR Not Detected (NotDetected); Mycoplasma Pneumoniae, PCR Not Detected (NotDetected); Parainfluenza 1, PCR Not Detected (NotDetected); Parainfluenza 2, PCR Not Detected (NotDetected); Parainfluenza 3, PCR Not Detected (NotDetected); Parainfluenza 4, PCR Not Detected (NotDetected); Respiratory Syncytial Virus Not Detected (NotDetected); Rhinovirus/Enterovirus Not Detected (NotDetected)
[2020-10-14 18:48] LABS: Occult Blood,Gastric Fluid Positive (Negative)
--- NOTE | 2020-10-14 18:48 | HMH.EDGENADL ---
ED Disposition Condition on Discharge: Fair - Critical Care Critical Care Time: No <Robinson Saul - Last Filed: 10/14/20 20:32> <Aldo Benitez - Last Filed: 10/14/20 22:40> Clinical Impression: Acute respiratory failure with hypoxia, Upper GI bleed, SIRS (systemic inflammatory response syndrome) Pneumonia Qualifiers: Pneumonia type: due to unspecified organism Laterality: right Lung location: middle lobe of lung Qualified Code(s): J18.9 - Pneumonia, unspecified organism Disposition: Admitted as Observation Instructions: DI for Altered Mental Status Referrals: Aldo Benitez MD [Primary Care Provider] - Attestation: On 10/14/20, the high probability of a clinically significant, sudden or life threatening deterioration of the following system(s) required my full and direct attention, intervention and personal management. The time I documented below is in addition to time spent performing reported procedures but includes the following listed in this critical care notation. Medical Decision Making - Medical Records Medical records reviewed: Yes: I reviewed the patient's medical records. - Gene Inquiry Pt receiving controlled substance: No - Lab Data Result diagrams: 10/14/20 17:51 10/14/20 17:51 - ECG Data Tracing #1 ECG initial impression date: 10/14/20 ECG initial impression time: 18:37 <Robinson Saul - Last Filed: 10/14/20 20:32> - Lab Data Lab results reviewed: Yes: I reviewed the patient's lab results. Result diagrams: 10/14/20 17:51 10/14/20 17:51 - Radiology Data #1 Image(s): Chest Image Reviewed: Yes I reviewed the patient's radiology image Preliminary Findings: Abnormal (rt lower inflitrate ) - ECG Data Tracing #2 Arrhythmias present: sinus tach Ischemic changes: non-specific ST-T wave changes <Aldo Benitez - Last Filed: 10/14/20 22:40> Vital Signs: 10/14/20 17:56 10/14/20 18:30 10/14/20 19:00 Temperature 103.8 F H Temperature Source Rectal Pulse Rate [Right] 145 H 145 H 141 H Respiratory Rate 38 H Blood Pressure [Right Arm] 122/83 121/70 120/72 Blood Pressure Mean [Right Arm] 96 87 88 Blood Pressure Source [Right Arm] Automatic Cuff Automatic Cuff Automatic Cuff Blood Pressure Position [Right Arm] Sitting Supine Supine 02 Sat by Pulse Oximetry 95 100 100 Oxygen Delivery Method Nasal Cannula Nasal Cannula Nasal Cannula Oxygen Flow Rate (LPM) 3 2 2 10/14/20 21:46 Temperature 103.6 F H Temperature Source Rectal Pulse Rate [Right] Respiratory Rate Blood Pressure [Right Arm] Blood Pressure Mean [Right Arm] Blood Pressure Source [Right Arm] Blood Pressure Position [Right Arm] 02 Sat by Pulse Oximetry Oxygen Delivery Method Oxygen Flow Rate (LPM) - Lab Data Lab Results 10/14/20 17:51: WBC 16.6 H, RBC 3.91 L, Hgb 12.4 L, Hct 38.3 L, MCV 98.0 H, MCH 31.6 H, MCHC 32.3, RDW 13.7, Plt Count 301, MPV 10.7 H, Neut % (Auto) 85.6 H, Lymph % (Auto) 10.2, [place] % (Auto) 3.4, Eos % (Auto) 0.7, Baso % (Auto) 0.1, Neut # (Auto) 14.2 H, Lymph # (Auto) 1.7, [place] # (Auto) 0.6, Eos # (Auto) 0.1, Baso # (Auto) 0.0, Total Counted 100, Neutrophils % (Manual) 87 H, Lymphocytes % (Manual) 6 L, Monocytes % (Manual) 7, Platelet Estimate Normal, RBC Morphology Normal 10/14/20 17:51: Sodium 142, Potassium 4.1, Chloride 111 H, Carbon Dioxide 25, Anion Gap 10.1, BUN 17 D, Creatinine 0.60 L, Estimated Creat Clear 93, Estimated GFR 139, Est GFR ( Amer) 169, Glucose 137 H, Calcium 9.4, Troponin I < 0.01 10/14/20 17:51: Lactate 1.2 10/14/20 18:27: Gastric Occult Blood Positive 10/14/20 18:37: Chlamy pneumoniae PCR Not detected, Adenovirus (PCR) Not detected, B. pertussis DNA (PCR) Not detected, Coronavirus OC43 (PCR) Not detected, Coronavirus HKU1 (PCR) Not detected, Coronavirus 229E (PCR) Not detected, SARS-CoV-2 (PCR) Not detected, Coronavirus NL63 (PCR) Not detected, Human Metapneumovir PCR Not detected, Influenza A (H1) PCR Not detected, Influ A (H1
[2020-10-14 18:54] LABS: Troponin I < 0.01 ng/ml (0.00-0.034)
[2020-10-14 19:13] LABS: Lymphocytes % 6 % (10-50); Monocytes % 7 % (2-9); Neutrophils % 87 % (42-76); Total Cells Counted 100
[2020-10-14 19:14] LABS: Platelet Estimate Normal; RBC Morphology Normal
[2020-10-14 21:29] LABS: Troponin I < 0.01 ng/ml (0.00-0.034)
--- NOTE | 2020-10-14 21:45 | ECG_ITS ---
APPROVED REPORT Exam: Resting ECG HR:137 bpm ECG Measurements Heart Rate 137 AXES OR 146 P 74 QRSd 66 QRS 110 QT 280 T 85 QTc 422 Conclusion Sinus tachycardia Septal infarct, age undetermined Lateral infarct, age undetermined Abnormal ECG Electronically signed by : Shiv Hu, 10/14/2020 22:02:02
[2020-10-14 21:58] LABS: Microscopic, Urine URINE MICROSCOPIC (MICROSCOPIC)
[2020-10-14 22:05] LABS: Appearance,Urine CLEAR (Clear); Bilirubin,Urine Negative (Negative); Blood, Urine Negative (Negative); Color,Urine YELLOW (Yellow); Glucose,Urine (UA) Negative (Negative); Ketones,Urine 1+ (Negative); Leukocyte Esterase,Urine Negative (Negative); Nitrate,Urine Negative (Negative); PH,Urine 7.5 (5.0-8.5); Protein,Urine Negative (Negative); Urobilinogen,Urine 0.2 EU/dl (0.2)
[2020-10-14 22:28] LABS: Squamous Epithelial Cell,Urine Occasional #/hpf (0-5); WBC,Urine Occasional #/hpf (0-3)
[2020-10-14 22:50] LABS: Bilirubin,Unconjugated 0.1 mg/dL (0.0-1.1)
[2020-10-14 22:51] LABS: Alanine Aminotransferase 17 U/L (12-78); Albumin Level 3.6 g/dl (3.5-5.0); Alkaline Phosphatase 118 U/L (38-126); Aspartate Amino Transferase 37 U/L (17-59); Bilirubin,Direct 0.3 mg/dl (0.0-0.4); Bilirubin,Indirect 0.1 mg/dL (0.0-0.9); Bilirubin,Total 0.4 mg/dl (0.2-1.3); Total Protein,Serum 7.7 g/dl (6.3-8.2)
[2020-10-15] VITALS (8 sets, daily range): BP systolic 93–127; BP diastolic 54–70; PULSE 115–124; RESP 18–30; TEMP 36.6–37.8; O2SAT 93–100; BMI 20.8; BMI 20.5
--- NOTE | 2020-10-15 00:29 | PC.NURSE ---
PT ARRIVED TO FLOOR VIA STRETCHER FROM ED AT 0030
--- NOTE | 2020-10-15 05:22 | PC.NURSE ---
pt is more alert at this time, will follow commands to move legs and arms, still unable to state name or where he is, SOB improved with o2 at 2L nc, fine crackles noted, heart rate remains tachycardic, bs x 4, gtube remains in place, 2 IVs to foot and Hand are patent. no needs at this time, pt turned and repositioned often for comfort, no needs at this time
[2020-10-15 07:00] LABS: Basophils # 0.1 K/mm3 (0-0.2); Basophils % 0.3 % (0.1-2.0); Eosinophils # 0.1 K/mm3 (0.0-0.4); Eosinophils % 0.5 % (0.1-12.0); Hematocrit 35.7 % (42.0-52.0); Lymphocytes # 2.2 K/mm3 (0.7-4.5); Lymphocytes % 12.4 % (10-50); Mean Corpuscular HGB Conc 31.2 g/dL (31.8-35.4); Mean Corpuscular Hemoglobin 31.1 pg (27.0-31.2); Mean Corpuscular Volume 99.8 fl (80-94); Mean Platelet Volume 12.7 fl (7.4-10.4); Monocytes # 1.6 K/mm3 (0.1-1.0); Monocytes % 9.1 % (1.7-9.3); Neutrophils # 14.1 K/mm3 (1.8-7.8); Neutrophils % 77.8 % (37.0-80.0); Platelet Count 216 K/mm3 (142-424); Red Blood Count 3.57 M/mm3 (4.60-6.20); Red Cell Distribution Width 13.8 % (11.5-17.5); White Blood Count 18.1 K/mm3 (4.8-10.8)
[2020-10-15 07:02] LABS: Hemoglobin 11.1 g/dL (14.1-18.0); MANUAL DIFFERENTIAL MANUAL DIFFERENTIAL (MANUAL DIFF)
[2020-10-15 07:44] LABS: Chloride 113 mmol/L (98-107); Sodium 142 mmol/L (136-145)
[2020-10-15 07:47] LABS: Blood Urea Nitrogen 13 mg/dl (9-20); Carbon Dioxide 22 mmol/L (22.0-30.0); Creatinine Clearance Estimated 169 mL/min (50-200); Estimated Glomerular Filt Rate 223 ml/min (>60); GFR (African American) 269 ML/MIN (>60)
[2020-10-15 07:48] LABS: Glucose 98 mg/dl (74-100)
[2020-10-15 07:52] LABS: Lymphocytes % 18 % (10-50); Monocytes % 3 % (2-9); Neutrophils % 79 % (42-76); Platelet Estimate Normal; RBC Morphology Normal; Total Cells Counted 100
[2020-10-15 07:58] LABS: Calcium 8.4 mg/dl (8.4-10.2)
--- NOTE | 2020-10-15 08:32 | HMH.PHAVTE ---
[facility] Pharmacy VTE Monitoring - Patient Demographics Admission date: 10/15/20 Report Date: 10/15/20 Time: 08:32 Allergies/Adverse Reactions: Patient Allergies No Known Allergies Allergy (Verified 10/08/20 12:11) Height: 1.68 m Weight: 57.9 kg Patient Problems: Current Active Problems (This Medical Record has been edited. Action required.) Pneumonia (Acute) Acute respiratory failure with hypoxia (Acute) Upper GI bleed (Acute) SIRS (systemic inflammatory response syndrome) (Acute) - VTE Risk Labs: VTE Related Lab Results Hgb 11.1 g/dL (14.1-18.0) L D 10/15/20 05:58 Hct 35.7 % (42.0-52.0) L 10/15/20 05:58 Plt Count 216 K/mm3 (142-424) D 10/15/20 05:58 BUN 13 mg/dl (9-20) 10/15/20 05:58 Creatinine 0.40 mg/dl (0.66-1.25) L D 10/15/20 05:58 Estimated Creat Clear 169 mL/min (50-200) 10/15/20 05:58 Was VTE Risk Assessment Performed: Yes VTE Score: 5 VTE Risk Level: Low Risk Clinical Trial Participant: No - Prophylaxis VTE Prophylaxis Ordered?: Yes Types of VTE Prophylaxis: TEDS Knee High
--- NOTE | 2020-10-15 08:46 | HMH.HP ---
*Admission Date: 10/15/20 *Chief complaint: Severe sepsis *History of present illness: 55-year-old white male with significant and complex past medical history of traumatic brain injury, seizure disorder, bedbound status, functional quadriplegia, chronic G-tube placement and severe alcoholism in the past with multiple seizures from alcoholism and anoxic brain injury who over the past couple of months has had a to [place] was medical course with COVID-19 pneumonitis treated at an outside hospital for several weeks, and then on return to the [facility] one episode of [facility] acquired pneumonia with sepsis. He was discharged from this hospital 4 days ago with G-tube antibiotics to wrap up his treatment for this but unfortunately has failed to improve and has had several episodes of hypotension, altered level of consciousness and yesterday was found to have significant hypotension, fever and evidence of occult blood in his G-tube and was transferred back to the hospital here. Interested reader is referred to the ER note where he was found to have severe sepsis, hypotension, broad-spectrum IV antibiotics and fluids were started and patient was transferred to the floor. [facility] History I have reviewed the patient's past medical history: Yes Medical History: Reports:: BPH, Congestive Heart Failure, Chronic Obstructive Pulmonary Disease (COPD), Dementia, Hyperlipidemia, Hypertension, Seizures Denies:: Cancer, Diabetes Mellitus Type 1, Diabetes Mellitus Type 2, Internal Pacemaker, MRSA *Have you ever received a pneumonia vaccine?: No *Have you received a flu vaccine this season?: No Other Medical History: Reports: Liver Disease Comment:: Chronic seizure disorder secondary to anoxic brain injury, history of traumatic brain injury, chronic alcoholism with Warnicke Korsakoff's dementia. Other Surgeries: No: Pacemaker Amputation: No - *Social History Smoking Status: Former smoker Tobacco Type: cigarettes # Packs/Day (cigarettes): 1 #Yrs smoked (if former smoker): 15 Alcohol Intake: never Alcohol Intake Frequency:: other *Occupational Status:: disabled Housing: [facility] Household Members: other *Travel in the last 8 weeks: None Family Hx:: Unable to obtain Review of Systems - Review of Systems Review of systems:: unable to obtain Patient is much more alert than yesterday, denies pains but this is somewhat unreliable given his mental status and cognitive impairment Meds Home Medications Medication Instructions Recorded Confirmed Type Ascorbic Acid 500 mg G-TUBE DAILY 10/08/20 10/14/20 History Aspirin [Aspirin 325mg Tab] 325 mg G-TUBE BID 10/08/20 10/14/20 History Cholecalciferol (Vitamin D3) 400 unit G-TUBE HS 10/08/20 10/14/20 History [Vitamin D3] Doxazosin Mesylate [Doxazosin 1mg 1 mg G-TUBE DAILY 10/08/20 10/14/20 History Tab] Folic Acid 1 mg G-TUBE DAILY 10/08/20 10/14/20 History LORazepam [Ativan 1mg tablet] 1 mg G-TUBE QID 10/08/20 10/14/20 History Lactobacillus Acidophilus 1 cap G-TUBE DAILY 10/08/20 10/14/20 History [Acidophilus] Melatonin/Pyridoxine HCl (B6) 1 tab G-TUBE HS 10/08/20 10/14/20 History [Melatonin 3 mg Tablet] Metoclopramide HCl [Metoclopramide 10 mg G-TUBE BID 10/08/20 10/14/20 History 10mg Tablet] Mupirocin [Bactroban 2% Ointment 1 applicatio TOPICAL QSHIFT PRN 10/08/20 10/14/20 History 22gm tube] Pantoprazole Sodium [Protonix 40mg 40 mg G-TUBE DAILY 10/08/20 10/14/20 History (granule) packet] Potassium Chloride [Pot Chlor 20 meq G-TUBE DAILY 10/08/20 10/14/20 History 20mEq/15mL Oral Soln UDC] Pyridoxine HCl (Vitamin B6) 50 mg G-TUBE DAILY 10/08/20 10/14/20 History [Pyridoxine (B6) 50mg Tablet] Quetiapine Fumarate 150 mg G-TUBE DAILY 10/08/20 10/14/20 History Quetiapine Fumarate 250 mg G-TUBE BID 10/08/20 10/14/20 History Thiamine HCl 100 mg G-TUBE DAILY 10/08/20 10/14/20 History Tiotropium Br/Olodaterol HCl 1 inhalation IH DAILY 10/08/20 10/14/20 History [Stio
--- NOTE | 2020-10-15 08:57 | XR_ITS ---
PROCEDURE: XR CHEST PORTABLE PICC PLAC CLINICAL HISTORY: Confirm PICC line placement COMPARISON: CT CHESTWO CT chest wo con from 03/23/2019 CR XR CHEST PORTABLE from 10/08/[address] ABDOMEN PELVIS W CON from 10/08/2020 CR XR ACUTE ABDOMEN SERIES from 10/10/2020 CR XR CHEST PORTABLE from 10/12/2020 CR XR CHEST PORTABLE from 10/14/2020 FINDINGS: Left upper extremity PICC line has been inserted. The tip is in good position in the region of the superior vena cava. Right lower lobe pneumonia present. Lucency is noted in the right lung base laterally along the inferior margin of the pneumonia and may be related to aerated lung. Developing abscess would be included in the differential diagnosis. Chest CT with contrast may provide further evaluation. Patchy density also noted in the right upper lobe suspicious for atelectasis or infiltrate. No acute bony abnormalities. IMPRESSION: 1. PICC line in good position. 2. Right lower lobe pneumonia with lucency in the right lung base laterally and may merely be related to adjacent aerated lung versus developing abscess. Dictated by: Syed Ch MD 10/15/2020 15:01 Syed Ch MD in [place] 10/15/2020 15:01
--- NOTE | 2020-10-15 09:56 | PC.NURSE ---
RESPIRATORY CARE NOTE: ATTEMPTED TO GIVE PT HIS SPIRIVA, BUT HE WAS UNABLE TO TAKE A QUICK/FAST BREATH IN. MADE PT TAKE SEVERAL BREATHS ON MOUTHPIECE IN ORDER TO RECEIVE FULL DOSE OF MEDICATION.
--- NOTE | 2020-10-15 10:01 | HMH.PHAINT ---
completed pt home medication reconciliation list using discharge list from most recent hospitalization
--- NOTE | 2020-10-15 13:34 | SW/DCPLANNER ---
Addendum entered by Elidia Lianres 10/20/20 09:35: I have spoke with Luzmaria from [facility] this morning: this patient will discharge back today, patient will need 7 days of IV cefepime 2gm Q12 (Luzmaria is aware), PICC line is in place and Luzmaria has stated that this patient will not need a COVID swab prior to admission since he has had COVID in the past. Patient will discharge back to [facility] today. Minda did speak with [facility] and they will have a transport truck available today. Addendum entered by Kelli Barnes 10/17/20 07:57: PATIENT REMAINS IN THE HOSPITAL AND WILL BE HERE OVER THE WEEKEND...HE WILL BE ABLE TO RETURN BACK TO [facility] AND IS ON A MEDICAID BEDHOLD.. FAMILY CONTINUES TO BE RESISTANT TO HOSPICE AND WANTS EVERYTHING DONE FOR HIM...WILL CONTINUE TO MONITOR. Original Note: PATIENT PRESENTED BACK INTO THE HOSPITAL AFTER BEING DISCHARGED THE END OF LAST WEEK....WE HAVE ATTEMPTED TO GET HOSPICE INVOLVED AND GUARDIAN (MIR SAINI) ABSOLUTELY REFUSES TO ALLOW HOSPICE SERVICES...HE IS NOT REALISTIC ABOUT HIS BROTHERS CONDITION... PATIENT IS PRETTY MUCH BEDRIDDEN, PEG TUBE FOR FEEDINGS AND GROSSLY THIN... HE CAN SPEAK BUT DOES NOT ALWAYS MAKE A LOT OF SENSE... HE IS ON A MEDICAID BEDHOLD AND WILL RETURN BACK THERE ONCE READY FOR A DISPOSITION FROM THE HOSPITAL. DISCHARGE UNCERTAIN BUT SHOULD BE IN THE NEXT FEW DAYS....
--- NOTE | 2020-10-15 17:25 | PC.NURSE ---
Addendum entered by Lizz Alejandra RN 10/15/20 18:43: RESIDUAL CHECKED Q4HR, 0ML RESIDUAL EACH TIME. Original Note: PT HAS DONE WELL TODAY. PT HAS SLEPT MOST OF DAY. IS COMPLIANT WITH CARE. PICC LINE PLACED TODAY BY Michele BALLARD RN. OK TO USE AND DRAW BLOOD FROM. VSS. WILL CONT. TO MONITOR.
[2020-10-16 04:00] VITALS: BP 110/63; PULSE 117; RESP 24; TEMP 36.9; O2SAT 94
[2020-10-16 07:00] LABS: Chloride 109 mmol/L (98-107); Sodium 138 mmol/L (136-145)
[2020-10-16 07:01] LABS: Basophils % 0.4 % (0.1-2.0); Eosinophils # 0.2 K/mm3 (0.0-0.4); Eosinophils % 2.1 % (0.1-12.0); Hematocrit 28.7 % (42.0-52.0); Hemoglobin 9.3 g/dL (14.1-18.0); Lymphocytes # 2.7 K/mm3 (0.7-4.5); Lymphocytes % 25.7 % (10-50); Mean Corpuscular HGB Conc 32.5 g/dL (31.8-35.4); Mean Corpuscular Hemoglobin 31.9 pg (27.0-31.2); Mean Corpuscular Volume 98.1 fl (80-94); Mean Platelet Volume 11.1 fl (7.4-10.4); Monocytes # 1.3 K/mm3 (0.1-1.0); Monocytes % 12.2 % (1.7-9.3); Neutrophils # 6.3 K/mm3 (1.8-7.8); Neutrophils % 59.7 % (37.0-80.0); Platelet Count 259 K/mm3 (142-424); Potassium 3.4 mmoL/L (3.5-5.1); Red Blood Count 2.93 M/mm3 (4.60-6.20); White Blood Count 10.6 K/mm3 (4.8-10.8)
[2020-10-16 07:03] LABS: Blood Urea Nitrogen 6 mg/dl (9-20); Creatinine Clearance Estimated 165 mL/min (50-200); Estimated Glomerular Filt Rate 223 ml/min (>60); GFR (African American) 269 ML/MIN (>60)
[2020-10-16 07:04] LABS: Anion Gap 7.4 mEq/L (5-15); Calcium 8.2 mg/dl (8.4-10.2); Carbon Dioxide 25 mmol/L (22.0-30.0); Glucose 94 mg/dl (74-100)
[2020-10-16 08:00] VITALS: BP 105/65; PULSE 115; RESP 16; TEMP 36.4; O2SAT 93
--- NOTE | 2020-10-16 08:14 | PC.NURSE ---
Pt has rested well this shift. Pt has been turned q2, HOB ept >30degrees. GTube in place and GRV was 5ml. No BM this shift. Pt awoke a few times and had short conversation with staff. PICC in place to LYNDON infusing ABX and IVF.
--- NOTE | 2020-10-16 09:10 | P.PN_ITS ---
Internal Medicine - PN: Subj *Date: 10/16/20 *Time: 09:10 Interval history: Overnight patient has been resting and sleeping most of the night. When awakened he is minimally responsive, however vital signs look good and fever curve has improved. Exam Vital signs and Labs for Last 24 Hours: Temp Pulse Resp BP Pulse Ox 97.5 F L 115 H 16 105/65 L 93 L 10/16/20 08:00 10/16/20 08:00 10/16/20 08:00 10/16/20 08:00 10/16/20 08:00 Laboratory Results - last 24 hr 10/16/20 06:00: WBC 10.6 D, RBC 2.93 L, Hgb 9.3 L, Hct 28.7 L, MCV 98.1 H, MCH 31.9 H, MCHC 32.5, RDW 14.0, Plt Count 259, MPV 11.1 H, Neut % (Auto) 59.7, Lymph % (Auto) 25.7, [place] % (Auto) 12.2 H, Eos % (Auto) 2.1, Baso % (Auto) 0.4, Neut # (Auto) 6.3, Lymph # (Auto) 2.7, [place] # (Auto) 1.3 H, Eos # (Auto) 0.2, Baso # (Auto) 0.0 10/16/20 06:00: Sodium 138, Potassium 3.4 L, Chloride 109 H, Carbon Dioxide 25, Anion Gap 7.4, BUN 6 L D, Creatinine 0.40 L, Estimated Creat Clear 165, Estimated GFR 223, Est GFR ( Amer) 269, Glucose 94, Calcium 8.2 L I & O for Last 24 hours: Intake & Output 10/13/20 10/14/20 10/15/20 10/16/20 11:59 11:59 11:59 11:59 Intake Total 2741 / 2741 145 / 145 Output Total 200 / 200 1550 / 1550 Balance 2541 / 2541 -1405 / -1405 Weight 127 lb 13.89 oz 124 lb 7 oz Narrative: Depressed mental status as previously noted. Patient has a history of days when he is more alert than others and this seems to be one of his days when he is not so communicative. Lungs have rhonchi and crackles bilaterally but fairly symmetric air entry. About the same as yesterday. Heart rate regular. Perfusion is unchanged, neurologic exam, muscle contractures and G-tube site are unchanged. Assessment and Plan (1) Acute respiratory failure with hypoxia Status: Acute Category: Medical Code(s): J96.01 - Acute respiratory failure with hypoxia (2) SIRS (systemic inflammatory response syndrome) Status: Acute Category: Medical Code(s): R65.10 - Systemic inflammatory re sponse syndrome (SIRS) of non-infectious origin without acute organ dysfunction (3) HCAP (healthcare-associated pneumonia) Status: Acute Category: Medical Code(s): J18.9 - Pneumonia, unspecified organism (4) Sepsis Status: Acute Category: Medical Code(s): A41.9 - Sepsis, unspecified organism - Assessment and plan all Dx Assessment and Plan for all problems:: Severe sepsis, patient looks better in regards to perfusion status, white counts, etc. Continue current antibiotic therapy and fluids. Restart tube feeds. Plan to watch patient here over the weekend and reassess suitability to go back to his long-term care facility at that point.
--- NOTE | 2020-10-16 10:14 | DIET.NUTRFU ---
Addendum entered by Stephanie Ennis 10/17/20 14:23: Pt tolerating initiation fairly well- stopped and restarted for GRV 100-140. No significant signs poor tolerance. Weight stable, has not had a BM, nutrition related labs mostly wnl. Hypokalemia and low BUN/Creatinine noted. IVF apparently never dc'd, continues at 100ml/h. Recommend continuing minimal water flushes of 30-60ml q 4h and advance to flushes of 100ml q 4h if IVF dc'd, as written in TF order. No change to rate/regimen at this time, will monitor tolerance advancement over next 24h to reevaluate. Addendum entered by Stephanie Ennis 10/16/20 10:24: IVF dc'd, water flushes of 100ml q 4h added to order, total fluids 2000ml. Will monitor to alter as indicated. Original Note: Nutrition consult received to initiate tube feeds, assessment complete and tube feeding order placed for the following regimen. Osmolite is most similar formula at [facility] to pt's formula at LT and was well tolerated at previous recent admission. Recommend initiating continuous tube feeding regimen of Osmolite 1.2 at 20ml/hr and advance rate by 10ml/hr q 8hr as tolerated to goal rate of 75ml/hr. This regimen provides 2070kcal, 96g protein, 272g cho, 68g fat, and 1415ml free water.Pt currently receiving IVF at 100ml/hr, recommend minimal water flushes of 30-60ml q 4h/for irrigation. Recommend decreasing IVF as TF regimen nears goal rate, formula provides significant free water of 1415ml.
--- NOTE | 2020-10-16 13:49 | PC.NURSE ---
pt unable to coughup a sample at this time. Pt unable to follow instruction. cup in room at bedside.
[2020-10-16 16:00] VITALS: BP 111/69; PULSE 115; RESP 24; TEMP 37.1; O2SAT 98
--- NOTE | 2020-10-16 18:35 | PC.NURSE ---
PT HAS HAD A GOOD DAY. PICC DRESSING CHANGED USING STERILE TECHNIQUE. PT TURNED Q2HR, AND RECEIVED ORAL CARE Q2HR. PT STARTED ON TKUBE FEED PER ORDER. 1600 RESUDUAL CHECK WAS 130 ML/HR SO TUBE FEED STOPPED MOMENTARILY. JUST CHECKED RESIDUAL AND IT WAS 20ML, RESTARTED TUBE FEED AT 20ML/HR. WILL CONT. TO MONITOR.
[2020-10-16 19:44] VITALS: BP 99/65; PULSE 107; RESP 22; TEMP 36.9; O2SAT 95
[2020-10-16 23:34] VITALS: BP 113/65; PULSE 119; RESP 24; TEMP 36.8; O2SAT 97
[2020-10-17 03:15] VITALS: BP 104/58; PULSE 107; RESP 26; TEMP 36.7; O2SAT 97
--- NOTE | 2020-10-17 05:16 | PC.NURSE ---
no acute changes. iv's patent. picc patent and running ns@100ml/hr per order. 2LNC in use. rhonchi noted on auscultation. pt has intermittent loose sounding cough. tube feeding was held from 2100 to 0400 due to residual checks. 2100 residual of 100, 0000 residual of 100, 0400 residual 0. tube feed was restarted at 20ml/hr at 0400. pt turned q2h. slept most of shift. seizure pads in place. call light in reach. bed alarm on. vss. will continue to monitor
[2020-10-17 05:59] VITALS: BMI 19.8
[2020-10-17 06:34] LABS: Basophils % 0.3 % (0.1-2.0); Eosinophils # 0.4 K/mm3 (0.0-0.4); Eosinophils % 5.3 % (0.1-12.0); Hematocrit 27.5 % (42.0-52.0); Hemoglobin 8.9 g/dL (14.1-18.0); Lymphocytes # 2.7 K/mm3 (0.7-4.5); Lymphocytes % 36.1 % (10-50); Mean Corpuscular HGB Conc 32.3 g/dL (31.8-35.4); Mean Corpuscular Hemoglobin 31.3 pg (27.0-31.2); Mean Corpuscular Volume 97.2 fl (80-94); Mean Platelet Volume 9.3 fl (7.4-10.4); Monocytes # 0.9 K/mm3 (0.1-1.0); Monocytes % 11.4 % (1.7-9.3); Neutrophils # 3.5 K/mm3 (1.8-7.8); Platelet Count 348 K/mm3 (142-424); Red Blood Count 2.84 M/mm3 (4.60-6.20); White Blood Count 7.5 K/mm3 (4.8-10.8)
[2020-10-17 06:43] LABS: Chloride 109 mmol/L (98-107); Sodium 139 mmol/L (136-145)
[2020-10-17 06:44] LABS: Potassium 3.1 mmoL/L (3.5-5.1)
[2020-10-17 06:46] LABS: Blood Urea Nitrogen 4 mg/dl (9-20); Creatinine Clearance Estimated 163 mL/min (50-200); Estimated Glomerular Filt Rate 223 ml/min (>60); GFR (African American) 269 ML/MIN (>60)
[2020-10-17 06:47] LABS: Anion Gap 5.1 mEq/L (5-15); Calcium 8.3 mg/dl (8.4-10.2); Carbon Dioxide 28 mmol/L (22.0-30.0); Glucose 96 mg/dl (74-100)
--- NOTE | 2020-10-17 07:48 | HMH.ACPN2 ---
Internal Medicine - PN: Subj *Date: 10/17/20 *Time: 09:56 Interval history: Afebrile overnight. No acute events. Unable to get tube feeds overnight due to gastric residuals. pleasant on exam this morning. Exam Vital signs and Labs for Last 24 Hours: Temp Pulse Resp BP Pulse Ox 98.0 F 107 H 26 H 104/58 L 97 10/17/20 03:15 10/17/20 03:15 10/17/20 03:15 10/17/20 03:15 10/17/20 03:15 Laboratory Results - last 24 hr 10/17/20 06:00: WBC 7.5 D, RBC 2.84 L, Hgb 8.9 L, Hct 27.5 L, MCV 97.2 H, MCH 31.3 H, MCHC 32.3, RDW 14.0, Plt Count 348 D, MPV 9.3, Neut % (Auto) 47.0, Lymph % (Auto) 36.1, [place] % (Auto) 11.4 H, Eos % (Auto) 5.3, Baso % (Auto) 0.3, Neut # (Auto) 3.5, Lymph # (Auto) 2.7, [place] # (Auto) 0.9, Eos # (Auto) 0.4, Baso # (Auto) 0.0 10/17/20 06:00: Sodium 139, Potassium 3.1 L, Chloride 109 H, Carbon Dioxide 28, Anion Gap 5.1, BUN 4 L D, Creatinine 0.40 L, Estimated Creat Clear 163, Estimated GFR 223, Est GFR ( Amer) 269, Glucose 96, Calcium 8.3 L I & O for Last 24 hours: Intake & Output 10/14/20 10/15/20 10/16/20 10/17/20 23:59 23:59 23:59 23:59 Intake Total 2886 / 2886 0 / 490 2263 / 2263 Output Total 1000 / 1000 2200 / 2200 900 / 900 Balance 1886 / 1886 -2200 / -1710 1363 / 1363 Weight 47.627 kg 58 kg 56.444 kg 55.877 kg Narrative: - *Routine HEENT Exam Head: Present: normocephalic; Previously noted scars from TBI Eye: Present: EOMI, PERRL ENT: Present: mucous membranes dry - *Routine Neck Exam Present: supple. Absent: lymphadenopathy - *Routine Respiratory Exam Present: rales, rhonchi - *Routine Cardiovascular Exam Present: RRR, tachycardia - *Routine Abdominal Exam Present: soft. Absent: tenderness Comments: GT in place. No dc - *Routine Extremities Exam Present: cyanosis. Absent: clubbing, edema Comments: Sarcopenia, contracture and atrophy from his chronic bedbound status - *Routine Skin Exam Present: warm. Absent: rash - *Routine Neurological Exam Present: alert, motor deficit, tremors No changes over baseline neuro exam, significant compromise as previously noted Assessment and Plan (1) Acute respiratory failure with hypoxia Status: Acute Category: Medical Code(s): J96.01 - Acute respiratory failure with hypoxia (2) SIRS (systemic inflammatory response syndrome) Status: Acute Category: Medical Code(s): R65.10 - Systemic inflammatory response syndrome (SIRS) of non-infectious origin without acute organ dysfunction (3) HCAP (healthcare-associated pneumonia) Status: Acute Category: Medical Code(s): J18.9 - Pneumonia, unspecified organism (4) Sepsis Status: Acute Category: Medical Code(s): A41.9 - Sepsis, unspecified organism (5) Anemia Status: Acute Qualifiers: Other causes of anemia: chronic disease, other Category: Medical Code(s): D64.9 - Anemia, unspecified (6) Cachexia Status: Chronic Category: Medical Code(s): R64 - Cachexia (7) Severe protein-calorie malnutrition Status: Chronic Category: Medical Code(s): E43 - Unspecified severe protein-calorie malnutrition (8) Wernicke-Korsakoff syndrome (alcoholic) Status: Chronic Category: Medical Code(s): F10.96 - Alcohol use, 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 Looks really good on exam this morning. Improved perfusion status. Labs showing significant provement in white count. Does have some anemia today however after fluid resuscitation. Mixed tolerance of G-tube feeds. Will continue at current rate. Having bowel movements. Patient continues to require inpatient management for his recurring healthcare acquired pneumonia. - Continue current antibiotic therapy and fluids - Advance tube feeds as tolerated - Plan to watch patient here over the weekend and reassess suitability to go back to his l
[2020-10-17 08:00] VITALS: BP 86/55; PULSE 107; RESP 18; TEMP 36.9; O2SAT 94
[2020-10-17 16:00] VITALS: BP 88/60; PULSE 105; RESP 20; TEMP 36.8; O2SAT 95
--- NOTE | 2020-10-17 16:32 | PC.NURSE ---
A TO NAME ONLY. PT HAS TOLERATED 2L NC WELL THROUGHOUT SHIFT. RESPIRATIONS REGULAR AND UNLABORED. RHONCHI NOTED THROUGHOUT. OCCASIONAL DRY NONPRODUCTIVE COUGH NOTED. +2 PULSES NOTED THROUGHOUT. NO EDEMA NOTED. ACTIVE BOWEL SOUNDS HEARD IN ALL 4 QUADRANTS. SOFT AND NONTENDER ABDOMEN. NO BM THUS FAR. SINCE LIZZ HAS BEEN D'CD, PT HAS HAD GREAT URINE OUTPUT. PT CHANGED NEEDED. PT TURNED Q 2HOURS. PEG TUBE IN PLACE. RESIDUAL CHECKED Q4 HOURS. CONTINUOUS TUBE FEEDING GOING AT A RATE OF 30 CURRENTLY. PT TOLERATING WELL. WILL ADVANCE TOLERATED. FLUSHED W 100ML EVERY 4 HOURS. HOB ELEVATED ABOVE 45 DEGREES THROUGHOUT SHIFT. BED ALARM ON TO PROMOTE SAFETY. SEIZURE PRECAUTIONS IN PLACE. NS INFUSING AT 100ML/HR. BED IN LOWEST POSITION. CALL LIGHT WITHIN REACH. VSS. WILL CONTINUE TO MONITOR.
[2020-10-17 19:33] VITALS: BP 124/66; PULSE 107; RESP 18; TEMP 36.4; O2SAT 100
[2020-10-17 20:00] VITALS: PULSE 107; RESP 18; O2SAT 100
[2020-10-18] VITALS (7 sets, daily range): BP systolic 99–142; BP diastolic 56–82; PULSE 104–115; RESP 18–28; TEMP 36.6–37.2; O2SAT 92–98; BMI 20.9
--- NOTE | 2020-10-18 05:55 | PC.NURSE ---
Pt has been pleasant and cooperative this shift. Alert to person. No complaints of pain or SOA. Pt is receiving O2 via NC @ 2 LPM with sats. >90%. Lung sounds reveal rhonchi and scattered crackles. PEG tube site is reddened, otherwise skin is C/D/I. Pt is incontinent of bowel/bladder and a brief is in place. No BM thus far this shift. Pt has been turned/repositioned and provided oral care Q2H this shift. PICC in place to the LT upper arm is patent and infusing NS @ 100 ML/HR. 18 G peripheral IV in the LT foot and 20 G peripheral IV in the RT hand are patent and SL. VSS. Call light within reach. Will continue to monitor.
[2020-10-18 06:42] LABS: Basophils % 0.5 % (0.1-2.0); Eosinophils # 0.5 K/mm3 (0.0-0.4); Eosinophils % 5.7 % (0.1-12.0); Hematocrit 28.1 % (42.0-52.0); Hemoglobin 9.2 g/dL (14.1-18.0); Lymphocytes # 2.8 K/mm3 (0.7-4.5); Lymphocytes % 34.4 % (10-50); Mean Corpuscular HGB Conc 32.8 g/dL (31.8-35.4); Mean Corpuscular Hemoglobin 32.1 pg (27.0-31.2); Mean Corpuscular Volume 97.7 fl (80-94); Mean Platelet Volume 8.4 fl (7.4-10.4); Monocytes # 0.7 K/mm3 (0.1-1.0); Monocytes % 8.3 % (1.7-9.3); Neutrophils # 4.2 K/mm3 (1.8-7.8); Neutrophils % 51.1 % (37.0-80.0); Platelet Count 462 K/mm3 (142-424); Red Blood Count 2.87 M/mm3 (4.60-6.20); Red Cell Distribution Width 14.1 % (11.5-17.5); White Blood Count 8.3 K/mm3 (4.8-10.8)
[2020-10-18 06:52] LABS: Chloride 105 mmol/L (98-107); Potassium 3.6 mmoL/L (3.5-5.1); Sodium 137 mmol/L (136-145)
[2020-10-18 06:55] LABS: Anion Gap 3.6 mEq/L (5-15); Calcium 8.6 mg/dl (8.4-10.2); Carbon Dioxide 32 mmol/L (22.0-30.0); Creatinine Clearance Estimated 172 mL/min (50-200); Estimated Glomerular Filt Rate 223 ml/min (>60); GFR (African American) 269 ML/MIN (>60); Glucose 112 mg/dl (74-100); Magnesium 1.8 mg/dl (1.6-2.3)
[2020-10-18 06:58] LABS: Blood Urea Nitrogen < 2 mg/dl (9-20)
--- NOTE | 2020-10-18 08:59 | HMH.ACPN2 ---
Internal Medicine - PN: Subj *Date: 10/18/20 *Time: 08:59 Interval history: Patient is more alert this morning, verbal, very pleasant. Tube feeds at 40 mL/h have been infusing very well with minimal residual. Exam Vital signs and Labs for Last 24 Hours: Temp Pulse Resp BP Pulse Ox 98.8 F 109 H 18 99/72 L 98 10/18/20 08:00 10/18/20 08:00 10/18/20 08:00 10/18/20 08:00 10/18/20 08:00 Laboratory Results - last 24 hr 10/18/20 06:25: WBC 8.3, RBC 2.87 L, Hgb 9.2 L, Hct 28.1 L, MCV 97.7 H, MCH 32.1 H, MCHC 32.8, RDW 14.1, Plt Count 462 H D, MPV 8.4, Neut % (Auto) 51.1, Lymph % (Auto) 34.4, [place] % (Auto) 8.3, Eos % (Auto) 5.7, Baso % (Auto) 0.5, Neut # (Auto) 4.2, Lymph # (Auto) 2.8, [place] # (Auto) 0.7, Eos # (Auto) 0.5 H, Baso # (Auto) 0.0 10/18/20 06:25: Sodium 137, Potassium 3.6, Chloride 105, Carbon Dioxide 32 H, Anion Gap 3.6 L, BUN < 2 L D, Creatinine 0.40 L, Estimated Creat Clear 172, Estimated GFR 223, Est GFR ( Amer) 269, Glucose 112 H, Calcium 8.6, Magnesium 1.8 I & O for Last 24 hours: Intake & Output 10/15/20 10/16/20 10/17/20 10/18/20 11:59 11:59 11:59 11:59 Intake Total 2741 / 2741 145 / 145 2263 / 2263 3965 / 3965 Output Total 200 / 200 1550 / 1550 2350 / 2350 1500 / 1500 Balance 2541 / 2541 -1405 / -1405 -87 / -87 2465 / 2465 Weight 127 lb 13.89 oz 124 lb 7 oz 123 lb 3 oz 130 lb Narrative: Awake, responsive, talkative. Lungs have scattered rhonchi but fairly symmetric air entry. G-tube site looks good, abdomen is soft. 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 No new rashes or areas of perfusion problems. Pulse rate regular, heart rate regular. Oropharynx dry but clear. Assessment and Plan (1) Acute respiratory failure with hypoxia Status: Acute Category: Medical Code(s): J96.01 - Acute respiratory failure with hypoxia (2) SIRS (systemic inflammatory response syndrome) Status: Acute Category: Medical Code(s): R65.10 - Systemic inflammatory response syndrome (SIRS) of non-infectious origin without acute organ dysfunction (3) HCAP (healthcare-associated pneumonia) Status: Acute Category: Medical Code(s): J18.9 - Pneumonia, unspecified organism (4) Sepsis Status: Acute Category: Medical Code(s): A41.9 - Sepsis, unspecified organism (5) Anemia Status: Acute Qualifiers: Other causes of anemia: chronic disease, other Category: Medical Code(s): D64.9 - Anemia, unspecified (6) Cachexia Status: Chronic Category: Medical Code(s): R64 - Cachexia (7) Severe protein-calorie malnutrition Status: Chronic Category: Medical Code(s): E43 - Unspecified severe protein-calorie malnutrition (8) Wernicke-Korsakoff syndrome (alcoholic) Status: Chronic Category: Medical Code(s): F10.96 - Alcohol use, 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 Recurrent aspiration is the etiology. We will continue slowly ramping up tube feeds over the weekend, possibly transfer back to skilled care facility on the .
--- NOTE | 2020-10-18 15:11 | PC.NURSE ---
Pt alert to self. Pt is NPO, all meds givenper G Tube. VSS. Pt has rested this shift. Oral care and turned q 2 hrs. Bathed pt and applied power to genital area for redness. Pt did have x 1 loose bm. BS x 4, Rhonchi to scattered lungs at this time. S1, S2 heart sounds. Continuous tube feeds continue at 45 ml/hr.
--- NOTE | 2020-10-19 03:54 | PC.NURSE ---
Pt alert to person and has slept well through the night. Pt tolerating tube feeds, latest GRV 0. TF increased to 60ml/hr. Lung sounds have scattered coarse crackles throughout, persistent but weak productive cough noted. Bowel sounds x4, abd soft and nontender. PICC patent. NS @ 100ml/hr. Pt tunred q2h, oral care q2h. VSS, call light in reach, no concerns at this time.
[2020-10-19 04:00] VITALS: BP 111/70; PULSE 103; RESP 16; TEMP 36.9; O2SAT 99
[2020-10-19 04:59] VITALS: BMI 19.7
[2020-10-19 07:58] VITALS: BP 112/70; PULSE 108; RESP 20; TEMP 37.2; O2SAT 98
--- NOTE | 2020-10-19 08:53 | P.PN_ITS ---
Internal Medicine - PN: Subj *Date: 10/19/20 *Time: 08:53 Interval history: Patient sleeping. When awakened was alert. Responsive, not as verbal as yesterday. Nurses report tube feeds have done well with slow escalation up to 60 mL/h Exam Vital signs and Labs for Last 24 Hours: Temp Pulse Resp BP Pulse Ox 98.9 F 108 H 20 112/70 98 10/19/20 07:58 10/19/20 07:58 10/19/20 07:58 10/19/20 07:58 10/19/20 07:58 I & O for Last 24 hours: Intake & Output 10/16/20 10/17/20 10/18/20 10/19/20 11:59 11:59 11:59 11:59 Intake Total 145 / 145 2263 / 2263 3965 / 3965 932 / 932 Output Total 1550 / 1550 2350 / 2350 1500 / 1500 Balance -1405 / -1405 -87 / -87 2465 / 2465 932 / 932 Weight 124 lb 7 oz 123 lb 3 oz 130 lb 122 lb 9 oz Narrative: Awake, minimally verbal. But at his baseline. Lungs have rhonchorous sounds, heart rate regular, abdomen soft, G-tube site looks good, extremities unchanged, neurologic exam unchanged. Assessment and Plan (1) Acute respiratory failure with hypoxia Status: Acute Category: Medical Code(s): J96.01 - Acute respiratory failure with hypoxia (2) SIRS (systemic inflammatory response syndrome) Status: Acute Category: Medical Code(s): R65.10 - Systemic inflammatory response syndrome (SIRS) of non-infectious origin without acute organ dysfunction (3) HCAP (healthcare-associated pneumonia) Status: Acute Category: Medical Code(s): J18.9 - Pneumonia, unspecified organism (4) Sepsis Status: Acute Category: Medical Code(s): A41.9 - Sepsis, unspecified organism (5) Anemia Status: Acute Qualifiers: Other causes of anemia: chronic disease, other Category: Medical Code(s): D64.9 - Anemia, unspecified (6) Cachexia Status: Chronic Category: Medical Code(s): R64 - Cachexia (7) Severe protein-calorie malnutrition Status: Chronic Category: Medical Code(s): E43 - Unspecified severe protein- calorie malnutrition (8) Wernicke-Korsakoff syndrome (alcoholic) Status: Chronic Category: Medical Code(s): F10.96 - Alcohol use, 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 Continue antibiotics, plan for possible transfer back to skilled care facility tomorrow. Tube feeding difficulties. Continue slow escalation-hopeful if he gets back close to his goal he can be transferred back with antibiotics and ongoing tube feeds tomorrow.
--- NOTE | 2020-10-19 09:23 | P.PN_ITS ---
Internal Medicine - PN: Subj *Date: 10/19/20 *Time: 09:23 Exam Vital signs and Labs for Last 24 Hours: Temp Pulse Resp BP Pulse Ox 98.9 F 108 H 20 112/70 98 10/19/20 07:58 10/19/20 07:58 10/19/20 07:58 10/19/20 07:58 10/19/20 07:58 I & O for Last 24 hours: Intake & Output 10/16/20 10/17/20 10/18/20 10/19/20 23:59 23:59 23:59 23:59 Intake Total 0 / 490 4580 / 4640 2580 / 2580 0 / 0 Output Total 2200 / 2200 2400 / 2400 Balance -2200 / -1710 2180 / 2240 2580 / 2580 0 / 0 Weight 56.444 kg 55.877 kg 58.967 kg 55.593 kg Assessment and Plan (1) Acute respiratory failure with hypoxia Status: Acute Category: Medical Code(s): J96.01 - Acute respiratory failure with hypoxia (2) SIRS (systemic inflammatory response syndrome) Status: Acute Category: Medical Code(s): R65.10 - Systemic inflammatory response syndrome (SIRS) of non-infectious origin without acute organ dysfunction (3) HCAP (healthcare-associated pneumonia) Status: Acute Category: Medical Code(s): J18.9 - Pneumonia, unspecified organism (4) Sepsis Status: Acute Category: Medical Code(s): A41.9 - Sepsis, unspecified organism (5) Anemia Status: Acute Qualifiers: Other causes of anemia: chronic disease, other Category: Medical Code(s): D64.9 - Anemia, unspecified (6) Cachexia Status: Chronic Category: Medical Code(s): R64 - Cachexia (7) Severe protein-calorie malnutrition Status: Chronic Category: Medical Code(s): E43 - Unspecified severe protein- calorie malnutrition (8) Wernicke-Korsakoff syndrome (alcoholic) Status: Chronic Category: Medical Code(s): F10.96 - Alcohol use, 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
[2020-10-19 11:15] VITALS: BP 99/56; PULSE 81; RESP 20; TEMP 36.8; O2SAT 96
[2020-10-19 15:30] VITALS: BP 100/60; PULSE 83; RESP 20; TEMP 36.8; O2SAT 97
[2020-10-19 19:29] VITALS: BP 110/73; PULSE 111; RESP 18; TEMP 37.2; O2SAT 99
--- NOTE | 2020-10-19 20:22 | PC.NURSE ---
Pt alert to self, NAD, tube feeds at 65 ML/HR. Turned and repositioned q 2 hrs. oral care, lungs diminished, does have cough intermittently. S1,S2.
[2020-10-20] VITALS: BP 109/77; PULSE 111; RESP 18; TEMP 36.6; O2SAT 96
[2020-10-20 04:00] VITALS: BP 92/58; PULSE 105; RESP 18; TEMP 36.3; O2SAT 96
[2020-10-20 05:00] VITALS: BMI 19.3
--- NOTE | 2020-10-20 05:24 | PC.NURSE ---
Pt alert to self, slept well through the night. TF were increased to 75/hr at 2000, residual was 120. At 0400, residual was 35ml. TF maintained at 75ml/hr which is goal. PT turned q2h, oral care q2h. Pt having adequate urine out, requiring multiple brief changes. Pt had a large liquid BM. Gtube patant, PICC patent NS @ 100 infusing. VSS, call light in reach, no concerns at this time.
[2020-10-20 07:41] VITALS: BP 101/59; PULSE 105; RESP 16; TEMP 36.6; O2SAT 95
--- NOTE | 2020-10-20 08:14 | HMH.DCSUM ---
General - General Admission date:: 10/15/20 Discharge date: 10/20/20 HPI HPI: 55-year-old white male with significant and complex past medical history of traumatic brain injury, seizure disorder, bedbound status, functional quadriplegia, chronic G-tube placement and severe alcoholism in the past with multiple seizures from alcoholism and anoxic brain injury who over the past couple of months has had a to mul was medical course with COVID-19 pneumonitis treated at an outside hospital for several weeks, and then on return to the [facility] one episode of [facility] acquired pneumonia with sepsis. He was discharged from this hospital 4 days ago with G-tube antibiotics to wrap up his treatment for this but unfortunately has failed to improve and has had several episodes of hypotension, altered level of consciousness and yesterday was found to have significant hypotension, fever and evidence of occult blood in his G-tube and was transferred back to the hospital here. Interested reader is referred to the ER note where he was found to have severe sepsis, hypotension, broad-spectrum IV antibiotics and fluids were started and patient was transferred to the floor. Hospital Course Hospital Course: Patient was admitted, severe sepsis protocol was initiated and patient was treated with intravenous Levaquin and clindamycin, as well as the addition of intravenous cefepime. His issues with G-tube aspiration have been previously documented, and G-tube feedings were held for a couple of days. They were restarted very cautiously and very very slowly was ramped up to his goal of 75 mL's per hour and has tolerated that well overnight. This morning he is back to his baseline with alertness, verbal, exam has improved. Plan will be to discharge back to [facility] on Levaquin and clindamycin through his G-tube for the next 7 days. He will also need cefepime 2 g IV every 12 hours for the next 7 days. He will need to continue his current feedings at 75 mL's per hour. He will need to continue aspiration precautions, elevation of the head of his bed. Unfortunately his family has continued to encourage oral feedings, In spite of recommendations and he continues to have chronic recurrent aspirations and his recurrent pneumonitis episodes will continue because of this and less this is stopped. Objective Vital signs: Temp Pulse Resp BP Pulse Ox 97.8 F 105 H 16 101/59 L 95 10/20/20 07:41 10/20/20 07:41 10/20/20 07:41 10/20/20 07:41 10/20/20 07:41 no acute distress, thin, chronically ill appearing - *Routine HEENT Exam Head: Present: normocephalic Eye: Present: EOMI, PERRL ENT: Present: mucous membranes moist - *Routine Neck Exam Present: supple - *Routine Respiratory Exam Present: rhonchi - *Routine Cardiovascular Exam Present: RRR - *Routine Abdominal Exam Present: soft, normoactive bowel sounds. Absent: tenderness Comments: G-tube in good position. - *Routine Extremities Exam Absent: cyanosis, clubbing, edema Comments: Previous contractures, muscle atrophy and skin changes as before - *Routine Skin Exam Present: warm. Absent: rash - *Routine Neurological Exam Present: alert Neurologic deficits globally persist. No changes over baseline - Detailed Eye Exam Eyelids: Bilateral normal inspection DS: Diagnosis - Discharge Diagnosis (1) Acute respiratory failure with hypoxia Status: Resolved (2) SIRS (systemic inflammatory response syndrome) Status: Resolved (3) HCAP (healthcare-associated pneumonia) Status: Acute (4) Sepsis Status: Acute (5) Anemia Status: Acute (6) Cachexia Status: Chronic (7) Severe protein-calorie malnutrition Status: Chronic (8) Wernicke-Korsakoff syndrome (alcoholic) Status: Chronic Discharge Plan - Patient Discharge Instructions ACTIVITY: Continue current activity DIET: continue same diet Patient Instructions: Pne
== END 2020-10-20 10:45 | DRG 189 ==
LOC: ER 22:49 → 2ND 10-15 11:11
PROVIDERS: Internal Medicine Adolescent Medicine; Admitting Provider Emergency Medicine; Emergency Provider Family Medicine; PCP Emergency Medicine; Visit Provider Internal Medicine Adolescent Medicine
DX: J96.01 Acute respiratory failure with hypoxia (principal); R65.20 Severe sepsis without septic shock; E43 Unspecified severe protein-calorie malnutrition; J18.9 Pneumonia, unspecified organism; R53.2 Functional quadriplegia; E51.2 Wernicke's encephalopathy; G93.1 Anoxic brain damage, not elsewhere classified; Z68.1 Body mass index [BMI] 19.9 or less, adult; R64 Cachexia; G40.909 Epilepsy, unspecified, not intractable, without status epilepticus; F10.21 Alcohol dependence, in remission; Z86.16 Personal history of COVID-19; Z79.899 Other long term (current) drug therapy; Z79.51 Long term (current) use of inhaled steroids; E03.9 Hypothyroidism, unspecified; Z74.01 Bed confinement status
CPT/HCPCS: 36415; 36569; 71045; 80048; 80076; 81001; 82272; 83605; 83735; 84484; 85007; 85025; 86850; 87581; 87633; 87798; 93005; 94640; 94761; 96365; 96366; 96367; 96375; 99283; 99285; C1751; G0328; J1956

== ENCOUNTER 2021-03-24 21:04 | Emergency (ER) | payer MEDICARE, MEDICAID, SELFPAY ==
--- NOTE | 2021-03-24 21:18 | PC.NURSE ---
Pt arrived at this time via ems
[2021-03-24 21:36] VITALS: BP 142/84; PULSE 88; RESP 15; TEMP 36.8; O2SAT 99; BMI 26.6
[2021-03-24 22:00] VITALS: BP 102/79; PULSE 110; RESP 18; O2SAT 93
--- NOTE | 2021-03-24 22:41 | XR_ITS ---
PROCEDURE INFORMATION: Exam: XR Abdomen Exam date and time: 03/24/2021 10:41 PM Age: 55 years old Clinical indication: Device placement; Gi device; Peg tube; Patient HX: G tube placement confirmation; Additional info: Confirm gtube placement TECHNIQUE: Imaging protocol: XR of the abdomen. Views: Frontal supine view of the abdomen. 1 View. COMPARISON: CR XR KUB 10/10/2020 2:10 PM FINDINGS: Tubes, catheters and devices: Percutaneous gastrostomy tube is present. Following injection through the gastrostomy tube, enteric contrast is seen outlining the stomach and proximal duodenum as expected. No extraluminal contrast. Gastrointestinal tract: Moderate amount of stool within the colon. Bones/joints: Osteopenia. Chronic left femoral head avascular necrosis. Scattered degenerative changes. IMPRESSION: Percutaneous gastrostomy tube with tip in the stomach. Expected intraluminal contrast pattern following injection of enteric contrast through the tube.
--- NOTE | 2021-03-24 22:44 | HMH.EDNVD ---
ED Disposition Clinical Impression: Gastrojejunostomy tube dislodgement Disposition: Home, Self-Care Condition on Discharge: Good Instructions: Enteral Feeding Additional Instructions: resume prev orders Referrals: Provider,Referral, [Primary Care Provider] - - Critical Care Critical Care Time: No Attestation: On 03/24/21, the high probability of a clinically significant, sudden or life threatening deterioration of the following system(s) required my full and direct attention, intervention and personal management. The time I documented below is in addition to time spent performing reported procedures but includes the following listed in this critical care notation. Medical Decision Making - Medical Records Medical records reviewed: Yes: I reviewed the patient's medical records. - Gene Inquiry Pt receiving controlled substance: No Vital Signs: 03/24/21 21:36 03/24/21 22:00 03/24/21 23:00 Temperature 98.2 F Temperature Source Oral Pulse Rate 110 H 98 H Pulse Rate [Right Brachial] 88 Respiratory Rate 15 18 Blood Pressure 102/79 L 135/75 Blood Pressure [Right Arm] 142/84 H Blood Pressure Mean [Right Arm] 103 Blood Pressure Source Automatic Cuff Blood Pressure Source [Right Arm] Automatic Cuff Blood Pressure Position Supine Blood Pressure Position [Right Arm] Sitting 02 Sat by Pulse Oximetry 99 93 L 93 L Oxygen Delivery Method Room Air Nasal Cannula Oxygen Flow Rate (LPM) 2 03/24/21 23:30 Temperature Temperature Source Pulse Rate 112 H Pulse Rate [Right Brachial] Respiratory Rate Blood Pressure 115/75 Blood Pressure [Right Arm] Blood Pressure Mean [Right Arm] Blood Pressure Source Blood Pressure Source [Right Arm] Blood Pressure Position Blood Pressure Position [Right Arm] 02 Sat by Pulse Oximetry 92 L Oxygen Delivery Method Oxygen Flow Rate (LPM) Orders (Tests/Meds): ED MEDICATIONS Discontinued Medications Generic Name Dose Route Start Last Admin Trade Name Freq PRN Reason Stop Dose Admin Diatrizoate Meglum/Diatrizoate Sod 30 ml 03/24/21 22:44 Diatrizoate Madeline 66% & Diatrizoate Na 10% 30ml Udc PO 03/24/21 22:45 ONCE ONE - Radiology Data #1 Image(s): KUB Image Reviewed: Yes I have reviewed radiologist's interpretation Preliminary Findings: Normal/NAD (gt ube ok) Medical Decision Narrative: g tube in place restart feeding Nausea/Vomiting/Diarrhea HPI - General Chief complaint: Recheck/Abnormal Lab/Rx Stated complaint: Removed Gtube Time Seen by Provider: 03/24/21 22:44 Mode of Arrival: EMS Source of Information: Patient, EMS, Medical Record Limitations: No Limitations Description of Symptoms (Recalled from ER Triage Doc. by RN): pt pulled out gtube, unsure how long has been out of body - History of Present Illness HPI Narrative: g tube out at [facility] [place] complaint: other (g tube out ) Onset (ago): hour(s) Associated Abdominal Pain: No Severity: moderate Associated symptoms: denies other symptoms - Related Data Home Medications Medication Instructions Recorded Confirmed Ascorbic Acid 500 mg G-TUBE DAILY 10/08/20 10/14/20 Aspirin [Aspirin 325mg Tab] 325 mg G-TUBE BID 10/08/20 10/14/20 Cholecalciferol (Vitamin D3) 400 unit G-TUBE HS 10/08/20 10/14/20 [Vitamin D3] Doxazosin Mesylate [Doxazosin 1mg 1 mg G-TUBE DAILY 10/08/20 10/14/20 Tab] Folic Acid 1 mg G-TUBE DAILY 10/08/20 10/14/20 LORazepam [Ativan 1mg tablet] 1 mg G-TUBE QID 10/08/20 10/14/20 Lactobacillus Acidophilus 1 cap G-TUBE DAILY 10/08/20 10/14/20 [Acidophilus] Melatonin/Pyridoxine HCl (B6) 1 tab G-TUBE HS 10/08/20 10/14/20 [Melatonin-Vit B6 3-10 mg Tab] Metoclopramide HCl [Metoclopramide 10 mg G-TUBE BID 10/08/20 10/14/20 10mg Tablet] Mupirocin [Bactroban 2% Ointment 1 applicatio TOPICAL QSHIFT PRN 10/08/20 10/14/20 22gm tube] Pantoprazole Sodium [Protonix 40mg 40 mg G-TUBE DAILY 10/08/20 10/14/20
[2021-03-24 23:00] VITALS: BP 135/75; PULSE 98; O2SAT 93
[2021-03-24 23:30] VITALS: BP 115/75; PULSE 112; O2SAT 92
[2021-03-25 00:30] VITALS: BP 117/74; PULSE 98; RESP 18; O2SAT 94
[2021-03-25 01:21] VITALS: BP 114/78; PULSE 78; RESP 22; TEMP 36.8; O2SAT 96
[2021-03-25 02:00] VITALS: BP 111/80; O2SAT 93
--- NOTE | 2021-03-25 02:42 | PC.NURSE ---
continuing to wait on transportation. pt resting quietly, no changes. gtube remains patent.
[2021-03-25 03:06] VITALS: BP 102/74; PULSE 95; RESP 18; O2SAT 94
== END 2021-03-25 03:33 | disposition home or self-care (01) ==
PROVIDERS: Emergency Provider Emergency Medicine
DX: T85.528A Displacement of other gastrointestinal prosthetic devices, implants and grafts, initial encounter (principal); F03.90 Unspecified dementia, unspecified severity, without behavioral disturbance, psychotic disturbance, mood disturbance, and anxiety; E78.5 Hyperlipidemia, unspecified; J44.9 Chronic obstructive pulmonary disease, unspecified; I10 Essential (primary) hypertension; I50.9 Heart failure, unspecified; E43 Unspecified severe protein-calorie malnutrition; K70.9 Alcoholic liver disease, unspecified; Z79.899 Other long term (current) drug therapy
CPT/HCPCS: 43762; 74018; 99283

== ENCOUNTER 2021-06-06 13:40 | Emergency (ER) | payer MEDICARE, MEDICAID, SELFPAY ==
[2021-06-06] VITALS (8 sets, daily range): BP systolic 97–133; BP diastolic 66–81; PULSE 111–122; RESP 16–27; TEMP 36.8–36.9; O2SAT 92–96; BMI 18.8
--- NOTE | 2021-06-06 13:49 | ECG_ITS ---
APPROVED REPORT Exam: Resting ECG HR:121 bpm ECG Measurements Heart Rate 121 AXES MA 152 P 72 QRSd 72 QRS 116 QT 328 T 72 QTc 465 Conclusion Sinus tachycardia Right axis deviation Old anteroseptal changes Abnormal ECG Electronically signed by : Shiv Hu MD 06/07/2021 09:18:20
--- NOTE | 2021-06-06 13:51 | HMH.EDGENADL ---
ED Disposition Clinical Impression: Hypoxia Pneumonia Qualifiers: Pneumonia type: due to unspecified organism Laterality: right Lung location: lower lobe of lung Qualified Code(s): J18.9 - Pneumonia, unspecified organism Disposition: Home, Self-Care Condition on Discharge: Fair Instructions: DI for Pneumonia -- Adult Additional Instructions: Invanz 1 g IV daily for next 6 days. Oxygen by nasal cannula as needed to keep pulse oximetry greater than 92%. Prescriptions: Ertapenem Sodium [Invanz 1gm Vial] 1 gm IV DAILY 6 Days #6 each Prescription Printed Referrals: Provider,Referral, MD [Primary Care Provider] - - Critical Care Critical Care Time: No Attestation: On , the high probability of a clinically significant, sudden or life threatening deterioration of the following system(s) required my full and direct attention, intervention and personal management. The time I documented below is in addition to time spent performing reported procedures but includes the following listed in this critical care notation. Medical Decision Making - Medical Records Medical records reviewed: Yes: I reviewed the patient's medical records. MR Comment: Reviewed discharge summary from most recent admission 10/15/2020 through 10/20/2020. Indicates the patient has a past medical history of traumatic brain injury, seizure disorder, bedbound status, functional quadriplegia, chronic G-tube placement and severe alcoholism in the past with multiple seizures from alcoholism and anoxic brain injury. History of G-tube aspiration. - Gene Inquiry Pt receiving controlled substance: No Vital Signs: 06/06/21 13:42 06/06/21 14:00 06/06/21 14:31 Temperature 98.5 F Temperature Source Rectal Pulse Rate 121 H 120 H Pulse Rate [Right] 122 H Respiratory Rate 26 H 23 18 Blood Pressure 133/81 124/73 Blood Pressure [Right Arm] 111/79 Blood Pressure Mean 95 102 Blood Pressure Mean [Right Arm] 89 Blood Pressure Source [Right Arm] Automatic Cuff Blood Pressure Position [Right Arm] Sitting 02 Sat by Pulse Oximetry 93 L 94 L 92 L Oxygen Delivery Method Room Air 06/06/21 15:30 06/06/21 16:00 Temperature Temperature Source Pulse Rate 117 H 118 H Pulse Rate [Right] Respiratory Rate 23 27 H Blood Pressure 118/68 108/73 L Blood Pressure [Right Arm] Blood Pressure Mean 84 88 Blood Pressure Mean [Right Arm] Blood Pressure Source [Right Arm] Blood Pressure Position [Right Arm] 02 Sat by Pulse Oximetry 96 93 L Oxygen Delivery Method - Lab Data Lab Results 06/06/21 14:13: WBC 11.7 H, RBC 4.69, Hgb 15.0, Hct 47.0, MCV 100.1 H, MCH 31.9 H, MCHC 31.9, RDW 14.0, Plt Count 429 H, MPV 9.8, Neut % (Auto) 63.4, Lymph % (Auto) 22.5, [place] % (Auto) 10.1 H, Eos % (Auto) 2.6, Baso % (Auto) 1.5, Neut # (Auto) 7.4, Lymph # (Auto) 2.6, [place] # (Auto) 1.2 H, Eos # (Auto) 0.3, Baso # (Auto) 0.2 06/06/21 14:13: Sodium 145, Potassium 4.0, Chloride 106, Carbon Dioxide 35 H, Anion Gap 8.0, BUN 20, Creatinine 0.60 L, Estimated Creat Clear 102, Estimated GFR 139, Est GFR ( Amer) 168, Glucose 111 H, Calcium 9.6, Total Bilirubin 0.3, AST 31, ALT 17, Alkaline Phosphatase 124, Total Protein 7.6, Albumin 3.6, Globulin 4.0 H, Albumin/Globulin Ratio 0.9 L 06/06/21 14:13: Lactate 1.0 06/06/21 14:13: SARS-CoV-2 (PCR) Not detected, Influenza A Untype (PCR) Not detected, Influenza Type B (PCR) Not detected 06/06/21 15:40: Urine Color Yellow, Urine Appearance Clear, Urine pH 7.0, Ur Specific [place] 1.020, Urine Protein Negative, Urine Glucose (UA) Negative, Urine Ketones Negative, Urine Blood Negative, Urine Nitrate Negative, Urine Bilirubin Negative, Urine Urobilinogen 1.0, Ur Leukocyte Esterase Negative, Urine RBC None, Urine WBC None, Ur Squamous Epith Cells None, Urine Bacteria None Result diagrams: 06/06/21 14:13 06/06/21 14:13 Orders (Tests/Meds): ORDERS Category Date Time Status Blood Culture Stat Micro 06/06/21 14:20 Ordered
--- NOTE | 2021-06-06 13:52 | XR_ITS ---
PROCEDURE INFORMATION: Exam: XR Chest Exam date and time: 06/06/2021 1:52 PM Age: 56 years old Clinical indication: Pain; Chest pressure; Patient HX: Patient in nursing facility -- not responsive or verbal -- fever TECHNIQUE: Imaging protocol: XR of the chest. Views: 1 view. COMPARISON: CR XR CHEST PORTABLE PICC PLAC 10/15/2020 2:15 PM FINDINGS: Lungs: Bilateral hyperinflation is present. Atelectatic changes noted within both lung bases without focal pneumonia. Pleural spaces: There is no evidence of pneumothorax. There are no pleural effusions present. Heart/Mediastinum: Unremarkable. No cardiomegaly. Bones/joints: The thoracic spine demonstrates mild degenerative changes at multiple levels. IMPRESSION: 1. Bilateral hyperinflation is present. 2. Atelectatic changes noted within both lung bases without focal pneumonia.
[2021-06-06 14:48] LABS: Coronavirus 19, PCR Not Detected (NotDetected); Influenza A, PCR Not Detected (NotDetected); Influenza B, PCR Not Detected (NotDetected)
[2021-06-06 14:54] LABS: Basophils # 0.2 K/mm3 (0-0.2); Basophils % 1.5 % (0.1-2.0); Eosinophils # 0.3 K/mm3 (0.0-0.4); Eosinophils % 2.6 % (0.1-12.0); Lymphocytes # 2.6 K/mm3 (0.7-4.5); Lymphocytes % 22.5 % (10-50); Mean Corpuscular HGB Conc 31.9 g/dL (31.8-35.4); Mean Corpuscular Hemoglobin 31.9 pg (27.0-31.2); Mean Corpuscular Volume 100.1 fl (80-94); Mean Platelet Volume 9.8 fl (7.4-10.4); Monocytes # 1.2 K/mm3 (0.1-1.0); Monocytes % 10.1 % (1.7-9.3); Neutrophils # 7.4 K/mm3 (1.8-7.8); Neutrophils % 63.4 % (37.0-80.0); Platelet Count 429 K/mm3 (142-424); Red Blood Count 4.69 M/mm3 (4.60-6.20); White Blood Count 11.7 K/mm3 (4.8-10.8)
[2021-06-06 15:00] LABS: Alanine Aminotransferase 17 U/L (12-78); Albumin Level 3.6 g/dl (3.5-5.0); Albumin/Globulin Ratio 0.9 (1.1-1.8); Alkaline Phosphatase 124 U/L (38-126); Aspartate Amino Transferase 31 U/L (17-59); Bilirubin,Total 0.3 mg/dl (0.2-1.3); Blood Urea Nitrogen 20 mg/dl (9-20); Calcium 9.6 mg/dl (8.4-10.2); Carbon Dioxide 35 mmol/L (22.0-30.0); Chloride 106 mmol/L (98-107); Creatinine Clearance Estimated 102 mL/min (50-200); Estimated Glomerular Filt Rate 139 ml/min (>60); GFR (African American) 168 ML/MIN (>60); Glucose 111 mg/dl (74-100); Sodium 145 mmol/L (136-145); Total Protein,Serum 7.6 g/dl (6.3-8.2)
--- NOTE | 2021-06-06 15:11 | CT_ITS ---
PROCEDURE INFORMATION: Exam: CTA Chest With Contrast Exam date and time: 06/06/2021 3:11 PM Age: 56 years old Clinical indication: Other: Hypoxia; Patient HX: Patient is non verbal unable to communicate -- from nursing facility did best images -- patient is normally in a position and drawn TECHNIQUE: Imaging protocol: Computed tomographic angiography of the chest with contrast. 3D rendering (Not supervised by radiologist): MIP and/or 3D reconstructed images were created by the technologist. Radiation optimization: All CT scans at this facility use at least one of these dose optimization techniques: automated exposure control; mA and/or kV adjustment per patient size (includes targeted exams where dose is matched to clinical indication); or iterative reconstruction. Contrast material: ISOVUE 370; Contrast volume: 75 ml; Contrast route: INTRAVENOUS (IV); COMPARISON: CHESTWO CT chest wo con 03/23/2019 4:31 PM FINDINGS: Pulmonary arteries: No evidence of pulmonary embolism. Aorta: No evidence of aortic dissection. Lungs: Patchy airspace opacity consistent with pneumonia present within the right lung base. Bilateral hyperinflation is present. Atelectatic and/or early infiltrative changes noted within the left lung base. Granulomatous densities present within both lungs. Pleural spaces: There is no evidence of pneumothorax. There are no pleural effusions present. Heart: Unremarkable. No cardiomegaly. No pericardial effusion. Lymph nodes: There is no evidence of mediastinal or hilar lymphadenopathy. Diaphragm: There is nonspecific elevation of the right hemidiaphragm. Bones/joints: The thoracic spine demonstrates mild degenerative changes at multiple levels. Mild compression deformities of T5, T7 and T8 are present, ages are indeterminate. Soft tissues: Unremarkable. IMPRESSION: 1. No evidence of pulmonary embolism. 2. No evidence of aortic dissection. 3. Patchy airspace opacity consistent with pneumonia present within the right lung base. 4. Bilateral hyperinflation is present. 5. Atelectatic and/or early infiltrative changes noted within the left lung base. 6. Mild compression deformities of T5, T7 and T8 are present, ages are indeterminate.
[2021-06-06 16:11] LABS: Microscopic, Urine URINE MICROSCOPIC (MICROSCOPIC)
[2021-06-06 16:24] LABS: Appearance,Urine CLEAR (Clear); Bilirubin,Urine Negative (Negative); Blood, Urine Negative (Negative); Color,Urine YELLOW (Yellow); Glucose,Urine (UA) Negative (Negative); Ketones,Urine Negative (Negative); Leukocyte Esterase,Urine Negative (Negative); Nitrate,Urine Negative (Negative); Protein,Urine Negative (Negative)
--- NOTE | 2021-06-06 16:30 | PC.NURSE ---
Pt gone to rad for CTA
--- NOTE | 2021-06-06 19:24 | PC.NURSE ---
called report to [facility]
== END 2021-06-06 19:26 | disposition home or self-care (01) ==
PROVIDERS: Emergency Provider Emergency Medicine
DX: J18.9 Pneumonia, unspecified organism (principal); Z20.822 Contact with and (suspected) exposure to COVID-19; I10 Essential (primary) hypertension; I50.9 Heart failure, unspecified; J44.9 Chronic obstructive pulmonary disease, unspecified; F03.90 Unspecified dementia, unspecified severity, without behavioral disturbance, psychotic disturbance, mood disturbance, and anxiety; F10.96 Alcohol use, unspecified with alcohol-induced persisting amnestic disorder; Z87.891 Personal history of nicotine dependence; Z87.820 Personal history of traumatic brain injury
CPT/HCPCS: 71045; 71275; 80053; 81001; 83605; 85025; 87040; 93005; 96365; 99285; C9803; J1335; U0003; U0005

== ENCOUNTER 2021-06-07 02:36 | Observation (INO) | payer MEDICARE, MEDICAID, SELFPAY ==
[2021-06-07] VITALS (28 sets, daily range): BP systolic 97–138; BP diastolic 64–93; PULSE 64–110; RESP 14–22; TEMP 36.8–36.9; O2SAT 90–100; BMI 19.8; BMI 16.7
--- NOTE | 2021-06-07 02:47 | XR_ITS ---
PROCEDURE INFORMATION: Exam: XR Chest Exam date and time: 06/07/2021 2:47 AM Age: 56 years old Clinical indication: Shortness of breath; Additional info: SOA TECHNIQUE: Imaging protocol: XR of the chest. Views: 1 view. COMPARISON: CR XR CHEST PORTABLE 06/06/2021 2:31 PM FINDINGS: Lungs: Hyperinflation/emphysema. Diffuse interstitial coarsening, with chronic bronchiectasis in the right lower lobe. There is a right lung base airspace consolidation compatible with pneumonia. Pleural spaces: No pleural effusion. No pneumothorax. Heart/Mediastinum: Normal heart size. Bones/joints: Osteopenia. Degenerative changes. Mild wedging of midthoracic vertebral bodies. IMPRESSION: 1. Right lower lobe pneumonia. 2. COPD.
--- NOTE | 2021-06-07 02:47 | CT_ITS ---
PROCEDURE INFORMATION: Exam: CTA Chest With Contrast Exam date and time: 06/07/2021 2:47 AM Age: 56 years old Clinical indication: Shortness of breath; Additional info: SOA TECHNIQUE: Imaging protocol: Computed tomographic angiography of the chest with contrast. 3D rendering (Not supervised by radiologist): MIP and/or 3D reconstructed images were created by the technologist. Radiation optimization: All CT scans at this facility use at least one of these dose optimization techniques: automated exposure control; mA and/or kV adjustment per patient size (includes targeted exams where dose is matched to clinical indication); or iterative reconstruction. Contrast material: ISOVUE; Contrast volume: 75 ml; Contrast route: INTRAVENOUS (IV); COMPARISON: CT ANGIO CHEST PE PROTOCOL 06/06/2021 4:09 PM FINDINGS: Pulmonary arteries: Interval development of a perceived filling defect at the terminal portion of the right upper lobe apical segment pulmonary artery, extending into its subsegmental branches. However, there is significant motion artifact at this level, which may contribute to this appearance. Therefore, findings are considered equivocal. Aorta: Scattered atherosclerotic plaque. No thoracic aortic aneurysm. No evidence of dissection. Lungs: Emphysema. Biapical scarring. There are secretions within the right lower lobe bronchus and its segmental branches. There is chronic bronchiectasis involving the right lower lobe segmental/subsegmental bronchi, with broncholiths. Heterogeneous airspace consolidation at the right lung base compatible with pneumonia (possibly aspiration related) is unchanged compared to recent prior. There is bronchial wall thickening with scattered mucous plugging in the left lower lobe as well. Linear scarring in subsegmental atelectasis at the left lung base. Pleural spaces: Unremarkable. No pneumothorax. No pleural effusion. Heart: Normal heart size. No pericardial effusion. RV to LV ratio is normal. No flattening or abnormal bowing of the interventricular septum. No reflux of contrast into the IVC. Lymph nodes: There are scattered calcified subcarinal lymph nodes compatible with old granulomatous disease. No enlarged thoracic lymph nodes are seen. Diaphragm: Small hiatal hernia. Gallbladder and bile ducts: There is high attenuation fluid within the gallbladder suggesting sludge or vicarious excretion of contrast. Kidneys and ureters: Partially imaged subcentimeter low-attenuation right renal lesion, too small for definitive assessment. Bones/joints: Unchanged appearance of superior endplate compression deformities affecting T4 through T8. Favor these to be chronic in nature. Soft tissues: Unremarkable. IMPRESSION: 1. Questionable interval development of acute segmental/subsegmental pulmonary embolism at the right apex. This region is obscured by motion artifact. No evidence of right heart strain. 2. Unchanged pneumonia at the right lung base (possibly aspiration related). Chronic right lower lobe bronchiectasis with secretions and broncholiths. 3. COPD.
--- NOTE | 2021-06-07 02:53 | ECG_ITS ---
APPROVED REPORT Exam: Resting ECG HR:107 bpm ECG Measurements Heart Rate 107 AXES OR 152 P 72 QRSd 76 QRS 117 QT 350 T 73 QTc 467 Conclusion Sinus tachycardia Right axis deviation Septal infarct, age undetermined Abnormal ECG Electronically signed by : Shiv Hu MD 06/07/2021 09:16:29
[2021-06-07 03:03] LABS: ABG Base Excess 1.2 mmol/L (-2.4-2.3); ABG Oxygen Saturation 97 % (90-100); ABG TCO2 27.4 mmhg (23-27)
[2021-06-07 03:04] LABS: Allen's Test y; Oxygen 2 %
[2021-06-07 03:05] LABS: Basophils # 0.1 K/mm3 (0-0.2); Basophils % 1.3 % (0.1-2.0); Eosinophils # 0.3 K/mm3 (0.0-0.4); Eosinophils % 2.8 % (0.1-12.0); Hematocrit 43.9 % (42.0-52.0); Hemoglobin 13.9 g/dL (14.1-18.0); Lymphocytes # 2.9 K/mm3 (0.7-4.5); Lymphocytes % 29.7 % (10-50); Mean Corpuscular HGB Conc 31.7 g/dL (31.8-35.4); Mean Platelet Volume 9.2 fl (7.4-10.4); Monocytes # 0.9 K/mm3 (0.1-1.0); Neutrophils # 5.6 K/mm3 (1.8-7.8); Neutrophils % 57.1 % (37.0-80.0); Platelet Count 416 K/mm3 (142-424); Red Blood Count 4.35 M/mm3 (4.60-6.20); White Blood Count 9.7 K/mm3 (4.8-10.8)
[2021-06-07 03:12] LABS: Alanine Aminotransferase 15 U/L (12-78); Albumin Level 3.1 g/dl (3.5-5.0); Albumin/Globulin Ratio 0.8 (1.1-1.8); Alkaline Phosphatase 110 U/L (38-126); Anion Gap 6.1 mEq/L (5-15); Aspartate Amino Transferase 30 U/L (17-59); Bilirubin,Total 0.3 mg/dl (0.2-1.3); Blood Urea Nitrogen 22 mg/dl (9-20); Calcium 8.8 mg/dl (8.4-10.2); Carbon Dioxide 32 mmol/L (22.0-30.0); Chloride 108 mmol/L (98-107); Creatinine Clearance Estimated 136 mL/min (50-200); Estimated Glomerular Filt Rate 171 ml/min (>60); GFR (African American) 207 ML/MIN (>60); Globulin 3.8 g/dL (1.3-3.2); Glucose 124 mg/dl (74-100); Lactic Acid 0.5 mmol/L (0.7-2.1); Potassium 4.1 mmoL/L (3.5-5.1); Sodium 142 mmol/L (136-145); Total Protein,Serum 6.9 g/dl (6.3-8.2)
[2021-06-07 03:17] LABS: C-Reactive Protein 17.2 mg/L (0-4)
[2021-06-07 03:29] LABS: Erythrocyte Sedimentation Rate 52 mm/hr (0-20)
[2021-06-07 03:30] LABS: Procalcitonin 0.063 ng/mL (0.0-2.0)
--- NOTE | 2021-06-07 04:44 | PC.NURSE ---
Dr. Benitez on the phone with [facility]
--- NOTE | 2021-06-07 06:36 | PC.NURSE ---
paged Dr. Hu
--- NOTE | 2021-06-07 06:39 | HMH.EDAMS ---
ED Disposition Clinical Impression: HCAP (healthcare-associated pneumonia) Disposition: Admitted As Inpatient Condition on Discharge: Fair Instructions: DI for Altered Mental Status Referrals: Shiv Hu MD [Primary Care Provider] - - Critical Care Critical Care Time: No Attestation: On 06/07/21, the high probability of a clinically significant, sudden or life threatening deterioration of the following system(s) required my full and direct attention, intervention and personal management. The time I documented below is in addition to time spent performing reported procedures but includes the following listed in this critical care notation. Medical Decision Making - Medical Records Medical records reviewed: Yes: I reviewed the patient's medical records. - Gene Inquiry Pt receiving controlled substance: No Vital Signs: 06/07/21 02:28 06/07/21 03:21 06/07/21 04:00 Temperature 98.5 F Temperature Source Rectal Pulse Rate 106 H 104 H Pulse Rate [Right] 110 H Respiratory Rate 22 Blood Pressure 97/69 L 114/86 Blood Pressure [Right Arm] 104/71 L Blood Pressure Mean [Right Arm] 82 02 Sat by Pulse Oximetry 95 90 L 99 Oxygen Delivery Method Nasal Cannula Oxygen Flow Rate (LPM) 3 06/07/21 04:30 06/07/21 04:45 06/07/21 05:15 Temperature Temperature Source Pulse Rate 100 H 101 H 102 H Pulse Rate [Right] Respiratory Rate Blood Pressure 121/87 127/84 116/85 Blood Pressure [Right Arm] Blood Pressure Mean [Right Arm] 02 Sat by Pulse Oximetry 99 100 94 L Oxygen Delivery Method Oxygen Flow Rate (LPM) 2 06/07/21 06:00 Temperature Temperature Source Pulse Rate 98 H Pulse Rate [Right] Respiratory Rate Blood Pressure 120/85 Blood Pressure [Right Arm] Blood Pressure Mean [Right Arm] 02 Sat by Pulse Oximetry 96 Oxygen Delivery Method Oxygen Flow Rate (LPM) - Lab Data Lab results reviewed: Yes: I reviewed the patient's lab results. Lab Results 06/07/21 02:44: WBC 9.7, RBC 4.35 L, Hgb 13.9 L, Hct 43.9, MCV 101.0 H, MCH 32.0 H, MCHC 31.7 L, RDW 14.0, Plt Count 416, MPV 9.2, Neut % (Auto) 57.1, Lymph % (Auto) 29.7, [place] % (Auto) 9.0, Eos % (Auto) 2.8, Baso % (Auto) 1.3, Neut # (Auto) 5.6, Lymph # (Auto) 2.9, [place] # (Auto) 0.9, Eos # (Auto) 0.3, Baso # (Auto) 0.1, ESR 52 H 06/07/21 02:44: Sodium 142, Potassium 4.1, Chloride 108 H, Carbon Dioxide 32 H, Anion Gap 6.1, BUN 22 H, Creatinine 0.50 L, Estimated Creat Clear 136, Estimated GFR 171, Est GFR ( Amer) 207 D, Glucose 124 H, Calcium 8.8, Total Bilirubin 0.3, AST 30, ALT 15, Alkaline Phosphatase 110, C-Reactive Protein 17.2 H, Total Protein 6.9, Albumin 3.1 L D, Globulin 3.8 H, Albumin/Globulin Ratio 0.8 L, Procalcitonin 0.063 06/07/21 02:44: Lactate 0.5 L 06/07/21 02:47: Specimen Source r/r, O2 % 2, ABG pH 7.40, ABG pCO2 43.0, ABG pO2 92.0, ABG HCO3 26.0, ABG Total CO2 27.4 H, ABG O2 Saturation 97, ABG Base Excess 1.2, Syed Test y Result diagrams: 06/07/21 02:44 06/07/21 02:44 Orders (Tests/Meds): ED MEDICATIONS Discontinued Medications Generic Name Dose Route Start Last Admin Trade Name Eleazarq PRN Reason Stop Dose Admin Sodium Chloride 1,000 mls @ 999 mls/hr 06/07/21 05:15 06/07/21 06:34 Sod Chlor 0.9% 1000ml Bag IV 06/07/21 06:15 999 mls/hr .Q1H1M PARDEEP Administration Iopamidol 75 ml 06/07/21 03:25 06/07/21 03:26 Iopamidol-370 (76%);100ml Bottle IV 06/07/21 03:26 75 ml ONCE ONE Administration Naloxone HCl 2 mg 06/07/21 06:39 06/07/21 06:41 Naloxone 2mg/2ml Syringe IV 06/07/21 06:40 Not Given ONCE ONE Naloxone HCl 2 mg 06/07/21 06:41 06/07/21 06:42 Naloxone 2mg/2ml Syringe IV 06/07/21 06:42 Not Given ONCE ONE Sodium Chloride 10 ml 06/07/21 03:25 06/07/21 03:26 Sodium Chloride 0.9% 10ml Syr (Rad Only) IV 06/07/21 03:26 10 ml ONCE ONE Administration Sodium Chloride 50 ml 06/07/21 03:25 06/07/21 03:26 0.9 % Sodium Chloride 50
--- NOTE | 2021-06-07 06:45 | PC.NURSE ---
Dr. Benitez s/w Dr. Hu. Agrees to admission. House notified, pt will be boarding in the ER.
--- NOTE | 2021-06-07 09:04 | PC.NURSE ---
Dr. Hu at
--- NOTE | 2021-06-07 09:12 | HMH.HP ---
*Admission Date: 06/07/21 *Chief complaint: Hypoxia/fever *History of present illness: 56-year-old white male with history of traumatic brain injury, seizure disorder, alcoholic cerebellar degenerative disease and Warnicke Korsakoff's dementia who has G-tube feedings and is a correction patient for many years. He has chronic aspiration pneumonia. Brought to the emergency department yesterday for fever and hypoxia, did well with 2 L nasal cannula and chest x-ray showed infiltrate. Labs were otherwise at baseline and I recommended that he be sent back to his correction with intravenous Invanz. He initially did well but unfortunately early this morning had an episode of hypoxia was brought and was brought back to the emergency department where vigorous suctioning improved his situation and apparently removed a fairly big mucous plug. Infiltrate slightly worsened on repeat chest x-ray and the decision was made to admit him overnight for observation here at the hospital and enhanced pulmonary toilet. [facility] History Medical History: Reports:: BPH, Congestive Heart Failure, Chronic Obstructive Pulmonary Disease (COPD), Dementia, Hyperlipidemia, Hypertension, Seizures Denies:: Cancer, Diabetes Mellitus Type 1, Diabetes Mellitus Type 2, Internal Pacemaker, MRSA *Have you ever received a pneumonia vaccine?: Yes *Have you received a flu vaccine this season?: Yes Other Medical History: Reports: Liver Disease Other Surgeries: No: Pacemaker Amputation: No - *Social History Smoking Status: Former smoker Tobacco Type: cigarettes # Packs/Day (cigarettes): 1 #Yrs smoked (if former smoker): 15 Alcohol Intake: never Alcohol Intake Frequency:: other *Occupational Status:: disabled Housing: correction Household Members: other *Travel in the last 8 weeks: None Family Hx:: Unable to obtain Review of Systems - Review of Systems Review of systems:: unable to obtain Meds Home Medications Medication Instructions Recorded Confirmed Type Aspirin [Aspirin 325mg Tab] 81 mg G-TUBE BID 10/08/20 06/07/21 History Cholecalciferol (Vitamin D3) 400 unit G-TUBE HS 10/08/20 06/07/21 History [Vitamin D3] Doxazosin Mesylate [Doxazosin 1mg 1 mg G-TUBE DAILY 10/08/20 06/07/21 History Tab] Folic Acid 1 mg G-TUBE DAILY 10/08/20 06/07/21 History LORazepam [Ativan 1mg tablet] 1 mg G-TUBE QID 10/08/20 06/07/21 History Lactobacillus Acidophilus 1 cap G-TUBE DAILY 10/08/20 06/07/21 History [Acidophilus] Melatonin/Pyridoxine HCl (B6) 1 tab G-TUBE HS 10/08/20 06/07/21 History [Melatonin-Vit B6 3-10 mg Tab] Metoclopramide HCl [Metoclopramide 10 mg G-TUBE BID 10/08/20 06/07/21 History 10mg Tablet] Potassium Chloride [Pot Chlor 20 meq G-TUBE DAILY 10/08/20 06/07/21 History 20mEq/15mL Oral Soln UDC] Pyridoxine HCl (Vitamin B6) 50 mg G-TUBE DAILY 10/08/20 06/07/21 History [Pyridoxine (B6) 50mg Tablet] Quetiapine Fumarate 150 mg G-TUBE DAILY 10/08/20 06/07/21 History Quetiapine Fumarate 250 mg G-TUBE BID 10/08/20 06/07/21 History Thiamine HCl 100 mg G-TUBE DAILY 10/08/20 06/07/21 History Valproic Acid (As Sodium Salt) 5 ml G-TUBE BID 10/08/20 06/07/21 History [Valproic Acid] polyethylene glycoL 3350 [Miralax 17 gm G-TUBE DAILY PRN 10/08/20 06/07/21 History 17gm Packet] Ertapenem Sodium [Invanz 1gm Vial] 1 gm IV DAILY 06/07/21 06/07/21 History Allergies Allergy/AdvReac Type Severity Reaction Status Date / Time No Known Allergies Allergy Verified 10/08/20 12:11 Exam Vital signs and Labs for Last 24 Hours: Temp Pulse Resp BP Pulse Ox 98.5 F 92 H 16 124/81 99 06/07/21 02:28 06/07/21 08:00 06/07/21 07:00 06/07/21 08:00 06/07/21 08:00 Laboratory Results - last 24 hr 06/07/21 02:44: WBC 9.7, RBC 4.35 L, Hgb 13.9 L, Hct 43.9, MCV 101.0 H, MCH 32.0 H, MCHC 31.7 L, RDW 14.0, Plt Count 416, MPV 9.2, Neut % (Auto) 57.1, Lymph % (Auto) 29.7, [place] % (Auto) 9.0, Eos % (Auto) 2.8, Baso % (Auto) 1.3, Neut # (A
--- NOTE | 2021-06-07 10:15 | PC.NURSE ---
Addendum entered by Юлия Dumas RN 06/07/21 10:17: Pt brief changed at this time. Urine noted Original Note: Pt turned and adjusted in bed at this time.
--- NOTE | 2021-06-07 10:17 | PC.NURSE ---
pt boarding in ER until a bed is available.
--- NOTE | 2021-06-07 14:06 | PC.NURSE ---
per senior data warehouse developer pt will have a bed soon, states she will notify when bed is available.
--- NOTE | 2021-06-07 14:40 | HMH.PHAINT ---
MEDICATION RECONCILIATION COMPLETE USING MAR FROM ALF
--- NOTE | 2021-06-07 14:41 | HMH.PHAVTE ---
[facility] Pharmacy VTE Monitoring - Patient Demographics Admission date: 06/07/21 Report Date: 06/07/21 Time: 14:42 Allergies/Adverse Reactions: Patient Allergies No Known Allergies Allergy (Verified 10/08/20 12:11) Height: 1.73 m Weight: 58.967 kg Patient Problems: Current Active Problems (This Medical Record has been edited. Action required.) HCAP (healthcare-associated pneumonia) (Acute) - VTE Risk Labs: VTE Related Lab Results Hgb 13.9 g/dL (14.1-18.0) L 06/07/21 02:44 Hct 43.9 % (42.0-52.0) 06/07/21 02:44 Plt Count 416 K/mm3 (142-424) 06/07/21 02:44 BUN 22 mg/dl (9-20) H 06/07/21 02:44 Creatinine 0.50 mg/dl (0.66-1.25) L 06/07/21 02:44 Estimated Creat Clear 136 mL/min (50-200) 06/07/21 02:44 Was VTE Risk Assessment Performed: No Clinical Trial Participant: No - Prophylaxis VTE Prophylaxis Ordered?: Yes Types of VTE Prophylaxis: TEDS Knee High Location of Applied Device: Bilateral Lower Extremeties
--- NOTE | 2021-06-07 16:32 | PC.NURSE ---
Report called to Daxa GREEN
--- NOTE | 2021-06-07 16:59 | PC.NURSE ---
Pt arrived to the floor at this time
[2021-06-08 00:03] VITALS: O2SAT 98
[2021-06-08 04:00] VITALS: BP 126/68; PULSE 67; RESP 18; TEMP 36.7; O2SAT 94
[2021-06-08 05:58] VITALS: PULSE 72; PULSE 78; O2SAT 94
--- NOTE | 2021-06-08 06:55 | PC.NURSE ---
Patient had a large BM this AM. Has maintained O2 sats > 90% on 2L NC. No s/s of acute distress noted this shift, call light within reach, bed at lowest level for safety; will continue to monitor.
[2021-06-08 07:05] LABS: Basophils # 0.1 K/mm3 (0-0.2); Basophils % 1.2 % (0.1-2.0); Eosinophils # 0.3 K/mm3 (0.0-0.4); Eosinophils % 3.6 % (0.1-12.0); Hematocrit 39.4 % (42.0-52.0); Hemoglobin 12.7 g/dL (14.1-18.0); Lymphocytes # 2.8 K/mm3 (0.7-4.5); Lymphocytes % 31.5 % (10-50); Mean Corpuscular HGB Conc 32.3 g/dL (31.8-35.4); Mean Corpuscular Volume 99.1 fl (80-94); Mean Platelet Volume 9.1 fl (7.4-10.4); Monocytes # 0.6 K/mm3 (0.1-1.0); Monocytes % 7.1 % (1.7-9.3); Neutrophils % 56.7 % (37.0-80.0); Platelet Count 425 K/mm3 (142-424); Red Blood Count 3.98 M/mm3 (4.60-6.20); White Blood Count 8.9 K/mm3 (4.8-10.8)
[2021-06-08 07:15] LABS: Chloride 109 mmol/L (98-107)
[2021-06-08 07:16] LABS: Potassium 3.2 mmoL/L (3.5-5.1); Sodium 142 mmol/L (136-145)
[2021-06-08 07:18] LABS: Blood Urea Nitrogen 15 mg/dl (9-20); Creatinine Clearance Estimated 144 mL/min (50-200); Estimated Glomerular Filt Rate 222 ml/min (>60); GFR (African American) 268 ML/MIN (>60)
[2021-06-08 07:19] LABS: Anion Gap 11.2 mEq/L (5-15); Calcium 8.6 mg/dl (8.4-10.2); Carbon Dioxide 25 mmol/L (22.0-30.0); Glucose 93 mg/dl (74-100)
[2021-06-08 08:00] VITALS: BP 131/72; PULSE 102; RESP 16; TEMP 36.4; O2SAT 99
--- NOTE | 2021-06-08 08:14 | HMH.DCSUM ---
General - General Admission date:: 06/07/21 Discharge date: 06/08/21 HPI HPI: 56-year-old white male with history of traumatic brain injury, seizure disorder, alcoholic cerebellar degenerative disease and Warnicke Korsakoff's dementia who has G-tube feedings and is a half-way patient for many years. He has chronic aspiration pneumonia. Brought to the emergency department yesterday for fever and hypoxia, did well with 2 L nasal cannula and chest x-ray showed infiltrate. Labs were otherwise at baseline and I recommended that he be sent back to his half-way with intravenous Invanz. He initially did well but unfortunately early this morning had an episode of hypoxia was brought and was brought back to the emergency department where vigorous suctioning improved his situation and apparently removed a fairly big mucous plug. Infiltrate slightly worsened on repeat chest x-ray and the decision was made to admit him overnight for observation here at the hospital and enhanced pulmonary toilet. Hospital Course Hospital Course: After excellent pulmonary toilet in the emergency department patient did very nicely, and was transferred to the floor in good condition. Tolerated nasal cannula in his nose at 2 L with excellent saturations. Had no further evidence of mucous plugging and was breathing easily. Remained afebrile. White count this morning remained not elevated. He tolerated his Invanz well. On exam he is really back to his normal self at the half-way, talkative, skin turgor good, alert. Plan will be to discharge back to [facility] to finish up previously prescribed Invanz for 1 week. Objective Vital signs: Temp Pulse Resp BP Pulse Ox 98.0 F 72 18 126/68 94 L 06/08/21 04:00 06/08/21 05:58 06/08/21 04:00 06/08/21 04:00 06/08/21 05:58 no acute distress, thin, chronically ill appearing - *Routine HEENT Exam Head: Present: normocephalic Eye: Present: EOMI, PERRL ENT: Present: mucous membranes moist - *Routine Neck Exam Present: supple - *Routine Respiratory Exam Present: CTA bilaterally - *Routine Cardiovascular Exam Present: RRR - *Routine Abdominal Exam Present: soft, normoactive bowel sounds. Absent: tenderness Comments: G-tube in good position. - *Routine Extremities Exam Absent: cyanosis, clubbing, edema Comments: Contractures and significant muscle atrophy noted but at baseline. No wounds. - *Routine Skin Exam Present: warm. Absent: rash - *Routine Neurological Exam Present: alert Previously noted speech delay, cognitive impairment and dementia but at baseline - Detailed Eye Exam Eyelids: Bilateral normal inspection Results Labs on day of discharge: Labs from last 24 hours 06/08/21 06/08/21 06:46 06:46 WBC 8.9 RBC 3.98 L Hgb 12.7 L Hct 39.4 L MCV 99.1 H MCH 32.0 H MCHC 32.3 RDW 14.0 Plt Count 425 H MPV 9.1 Neut % (Auto) 56.7 Lymph % (Auto) 31.5 [place] % (Auto) 7.1 Eos % (Auto) 3.6 Baso % (Auto) 1.2 Neut # (Auto) 5.0 Lymph # (Auto) 2.8 [place] # (Auto) 0.6 Eos # (Auto) 0.3 Baso # (Auto) 0.1 Sodium 142 Potassium 3.2 L D Chloride 109 H Carbon Dioxide 25 Anion Gap 11.2 BUN 15 D Creatinine 0.40 L Estimated Creat Clear 144 Estimated GFR 222 Est GFR ( Amer) 268 D Glucose 93 Calcium 8.6 Preliminary micro results at discharge 06/07/21 03:50 Sputum Culture - Preliminary Sputum - Expectorated Sputum DS: Diagnosis - Discharge Diagnosis (1) HCAP (healthcare-associated pneumonia) Status: Acute Discharge Plan - Patient Discharge Instructions ACTIVITY: Continue current activity DIET: continue same diet - Follow up Plan Disposition: Xfer SNF Condition at discharge:: Improved Home Medications: Home Medications Medication Instructions Recorded Confirmed Type Cholecalciferol (Vitamin D3) 400 unit G-TUBE HS 10/08/20 06/07/21 [place]
--- NOTE | 2021-06-08 08:59 | SW/DCPLANNER ---
This patient currently resides at [facility]. I spoke with Luzmaria this AM to inform her the patient will return today. Luzmaria has stated that patient is ICF level of care and will require an additional COVID swab prior to returning.
[2021-06-08 10:41] LABS: Coronavirus 19, PCR Not Detected (NotDetected); Influenza A, PCR Not Detected (NotDetected); Influenza B, PCR Not Detected (NotDetected)
== END 2021-06-08 12:11 ==
LOC: ER 02:39 → 2ND 07:09
PROVIDERS: Admitting Provider Internal Medicine Adolescent Medicine; Emergency Provider Emergency Medicine; PCP Internal Medicine Adolescent Medicine; Visit Provider Internal Medicine Adolescent Medicine
DX: J18.9 Pneumonia, unspecified organism (principal); I11.0 Hypertensive heart disease with heart failure; I50.9 Heart failure, unspecified; G40.909 Epilepsy, unspecified, not intractable, without status epilepticus; R64 Cachexia; Z68.1 Body mass index [BMI] 19.9 or less, adult; Z79.899 Other long term (current) drug therapy; Z20.822 Contact with and (suspected) exposure to COVID-19
CPT/HCPCS: G0378; 71045; 71275; 80048; 80053; 82803; 83605; 84145; 85025; 85651; 86140; 87070; 87077; 87186; 87205; 93005; 94640; 96365; 96367; 99284; C9803; J1335; Q9967; U0003; U0005

== ENCOUNTER 2021-10-18 03:46 | Observation (INO) | payer MEDICARE, MEDICAID, SELFPAY ==
[2021-10-18] VITALS (13 sets, daily range): BP systolic 97–132; BP diastolic 62–75; PULSE 120–126; RESP 17–33; TEMP 36.4–37.9; O2SAT 95–99; BMI 16.7; BMI 19.1
--- NOTE | 2021-10-18 03:31 | XR_ITS ---
PROCEDURE INFORMATION: Exam: XR Chest Exam date and time: 10/18/2021 3:31 AM Age: 56 years old Clinical indication: Other: Bilateral rhonci increased secretions; Additional info: Bilateral rhonci, increased secretions TECHNIQUE: Imaging protocol: XR of the chest. Views: 1 view. COMPARISON: CR XR CHEST PORTABLE 06/07/2021 3:12 AM FINDINGS: Lungs: Patchy opacities within the medial right lower lobe, possibly small pneumonia. Lungs are mildly hyperexpanded, compatible with chronic obstructive pulmonary physiologic changes. Pleural spaces: Unremarkable. No pleural effusion. No pneumothorax. Heart/Mediastinum: Normal. Bones/joints: Degenerative changes of the acromioclavicular glenohumeral joints. IMPRESSION: Patchy opacities within the medial right lower lobe, possibly small pneumonia. Recommend follow-up.
[2021-10-18 03:48] LABS: Basophils # 0.1 K/mm3 (0-0.2); Basophils % 0.6 % (0.1-2.0); Eosinophils # 0.1 K/mm3 (0.0-0.4); Eosinophils % 0.4 % (0.1-12.0); Hematocrit 45.7 % (42.0-52.0); Hemoglobin 14.3 g/dL (14.1-18.0); Lymphocytes % 9.9 % (10-50); Mean Corpuscular HGB Conc 31.4 g/dL (31.8-35.4); Mean Corpuscular Hemoglobin 32.3 pg (27.0-31.2); Platelet Count 321 K/mm3 (142-424); Red Blood Count 4.44 M/mm3 (4.60-6.20); White Blood Count 20.2 K/mm3 (4.8-10.8)
--- NOTE | 2021-10-18 03:50 | HMH.EDGENADL ---
ED Disposition Clinical Impression: SIRS (systemic inflammatory response syndrome), Hyperkalemia Sepsis Qualifiers: Sepsis type: sepsis due to unspecified organism Sepsis acute organ dysfunction status: without acute organ dysfunction Qualified Code(s): A41.9 - Sepsis, unspecified organism Disposition: Admitted As Inpatient Condition on Discharge: Good Referrals: Shiv Hu MD [Primary Care Provider] - - Critical Care Critical Care Time: Yes Attestation: On , the high probability of a clinically significant, sudden or life threatening deterioration of the following system(s) required my full and direct attention, intervention and personal management. The time I documented below is in addition to time spent performing reported procedures but includes the following listed in this critical care notation. Total Critical Care Time: 35 Vital system(s) involved:: Metabolic Failure, Shock (Septic) My critical care processes included: Assessment & monitoring of V/S, Initial and Re-exams, Data Review/Interpretation, Coordinating Care, Medication Orders and management, Documentation Medical Decision Making - Medical Records Medical records reviewed: Yes: I reviewed the patient's medical records. - Gene Inquiry Pt receiving controlled substance: No Vital Signs: 10/18/21 03:02 10/18/21 04:00 10/18/21 04:30 Temperature 100.2 F H Temperature Source Rectal Pulse Rate 126 H 121 H Pulse Rate [Apical] 126 H Respiratory Rate 32 H 33 H 31 H Blood Pressure 115/62 97/62 L Blood Pressure [Left Arm] 97/64 L Blood Pressure Mean 70 Blood Pressure Mean [Left Arm] 75 Blood Pressure Source [Left Arm] Automatic Cuff Blood Pressure Position [Left Arm] Supine 02 Sat by Pulse Oximetry 96 98 98 Oxygen Delivery Method Nasal Cannula Nasal Cannula Nasal Cannula Oxygen Flow Rate (LPM) 2 2 2 10/18/21 05:00 10/18/21 05:30 Temperature Temperature Source Pulse Rate 123 H 121 H Pulse Rate [Apical] Respiratory Rate 27 H 24 Blood Pressure 118/75 119/72 Blood Pressure [Left Arm] Blood Pressure Mean Blood Pressure Mean [Left Arm] Blood Pressure Source [Left Arm] Blood Pressure Position [Left Arm] 02 Sat by Pulse Oximetry 98 97 Oxygen Delivery Method Nasal Cannula Nasal Cannula Oxygen Flow Rate (LPM) 2 2 - Lab Data Lab Results 10/18/21 03:36: WBC 20.2 H*, RBC 4.44 L, Hgb 14.3, Hct 45.7, MCV 103.0 H, MCH 32.3 H, MCHC 31.4 L, RDW 14.0, Plt Count 321, MPV 10.0, Neut % (Auto) 84.0 H, Lymph % (Auto) 9.9 L, [place] % (Auto) 5.0, Eos % (Auto) 0.4, Baso % (Auto) 0.6, Neut # (Auto) 17.0 H, Lymph # (Auto) 2.0, [place] # (Auto) 1.0, Eos # (Auto) 0.1, Baso # (Auto) 0.1, Total Counted 100, Neutrophils % (Manual) 77 H, Band Neutrophils % 11.0 H, Lymphocytes % (Manual) 12, Platelet Estimate Normal, Hypochromasia 1+, Macrocytosis 2+ 10/18/21 03:36: Sodium 134 L, Potassium 5.5 H, Chloride 99, Carbon Dioxide 32 H, Anion Gap 8.5, BUN 31 H, Creatinine 0.70, Estimated GFR 116, Est GFR ( Amer) 141, Glucose 154 H, Calcium 8.5, Total Bilirubin 0.5, AST 65 H, ALT 27, Alkaline Phosphatase 108, Total Protein 7.0, Albumin 3.2 L, Globulin 3.8 H, Albumin/Globulin Ratio 0.8 L 10/18/21 03:36: Lactate 1.8 10/18/21 03:36: Phosphorus 5.0 H, Magnesium 2.3, Procalcitonin 0.604 10/18/21 03:42: Urine Color Yellow, Urine Appearance Clear, Urine pH 6.0, Ur Specific [place] 1.025, Urine Protein Negative, Urine Glucose (UA) Negative, Urine Ketones Negative, Urine Blood Negative, Urine Nitrate Negative, Urine Bilirubin Negative, Urine Urobilinogen 1.0, Ur Leukocyte Esterase Negative, Urine WBC 5-10, Amorphous Sediment Trace, Urine Mucus 1+ 10/18/21 03:45: SARS-CoV-2 (PCR) Not detected, Influenza A Untype (PCR) Not detected, Influenza Type B (PCR) Not detected Result diagrams: 10/18/21 03:36 10/18/21 03:36 Orders (Tests/Meds): ED MEDICATIONS Generic Name Dose Route Start Last Admin Trade Name Freq PRN Reason Stop Dose Admin Piperacillin Sod
[2021-10-18 03:51] LABS: MANUAL DIFFERENTIAL MANUAL DIFFERENTIAL (MANUAL DIFF)
[2021-10-18 03:51] LABS: Microscopic, Urine URINE MICROSCOPIC (MICROSCOPIC)
[2021-10-18 03:55] LABS: Appearance,Urine CLEAR (Clear); Bilirubin,Urine Negative (Negative); Blood, Urine Negative (Negative); Color,Urine YELLOW (Yellow); Glucose,Urine (UA) Negative (Negative); Ketones,Urine Negative (Negative); Leukocyte Esterase,Urine Negative (Negative); Nitrate,Urine Negative (Negative); Protein,Urine Negative (Negative); Specific Gravity, Urine 1.025 (1.005-1.030)
[2021-10-18 04:00] LABS: Amorphous Sediment,Urine Trace /lpf; Mucus,Urine 1+ /lpf
[2021-10-18 04:01] LABS: Lactic Acid 1.8 mmol/L (0.7-2.1)
[2021-10-18 04:02] LABS: Alanine Aminotransferase 27 U/L (12-78); Albumin Level 3.2 g/dl (3.5-5.0); Albumin/Globulin Ratio 0.8 (1.1-1.8); Alkaline Phosphatase 108 U/L (38-126); Anion Gap 8.5 mEq/L (5-15); Aspartate Amino Transferase 65 U/L (17-59); Bilirubin,Total 0.5 mg/dl (0.2-1.3); Blood Urea Nitrogen 31 mg/dl (9-20); Calcium 8.5 mg/dl (8.4-10.2); Carbon Dioxide 32 mmol/L (22.0-30.0); Chloride 99 mmol/L (98-107); Estimated Glomerular Filt Rate 116 ml/min (>60); GFR (African American) 141 ML/MIN (>60); Globulin 3.8 g/dL (1.3-3.2); Glucose 154 mg/dl (74-100); Hypochromasia 1+; Lymphocytes % 12 % (10-50); Macrocytosis 2+; Magnesium 2.3 mg/dl (1.6-2.3); Neutrophils % 77 % (42-76); Platelet Estimate Normal; Potassium 5.5 mmoL/L (3.5-5.1); Sodium 134 mmol/L (136-145); Total Cells Counted 100
[2021-10-18 04:18] LABS: Procalcitonin 0.604 ng/mL (0.0-2.0)
[2021-10-18 04:19] LABS: Coronavirus 19, PCR Not Detected (NotDetected); Influenza A, PCR Not Detected (NotDetected); Influenza B, PCR Not Detected (NotDetected)
--- NOTE | 2021-10-18 05:56 | PC.NURSE ---
Paging John at this time
--- NOTE | 2021-10-18 06:37 | PC.NURSE ---
Attempted to call report at this time with no answer. Will attempt again in 15 min.
--- NOTE | 2021-10-18 06:50 | PC.NURSE ---
Report called to PETER Nath at this time.
--- NOTE | 2021-10-18 07:50 | PC.NURSE ---
2nd floor staff down here to take patient up to inpatient room.
--- NOTE | 2021-10-18 07:58 | PC.NURSE ---
Pt arrived to the floor at this time .
--- NOTE | 2021-10-18 08:30 | HMH.PHACONS ---
- Pharmacy Consult Date: 10/18/21 Time: 08:30 Referring provider: DR. WALLACE Reason for Consult:: VANCOMYCIN DOSING Allergies and ADEs:: Allergies Allergy/AdvReac Type Severity Reaction Status Date / Time No Known Allergies Allergy Verified 10/08/20 12:11 Home Medications:: Home Medications Medication Instructions Recorded Confirmed Type Cholecalciferol (Vitamin D3) 400 unit G-TUBE HS 10/08/20 10/18/21 History [Vitamin D3] Doxazosin Mesylate [Doxazosin 1mg 1 mg G-TUBE DAILY 10/08/20 10/18/21 History Tab] Folic Acid 1 mg G-TUBE DAILY 10/08/20 10/18/21 History LORazepam [Ativan 1mg tablet] 1 mg G-TUBE QID 10/08/20 10/18/21 History Lactobacillus Acidophilus 1 cap G-TUBE DAILY 10/08/20 10/18/21 History [Acidophilus] Potassium Chloride [Pot Chlor 20 meq G-TUBE DAILY 10/08/20 10/18/21 History 20mEq/15mL Oral Soln UDC] Quetiapine Fumarate 50 mg G-TUBE DAILY 10/08/20 10/18/21 History Thiamine HCl 100 mg G-TUBE DAILY 10/08/20 10/18/21 History Valproic Acid (As Sodium Salt) 10 ml G-TUBE BID 10/08/20 10/18/21 History [Valproic Acid] polyethylene glycoL 3350 [Miralax 17 gm G-TUBE DAILY PRN 10/08/20 10/18/21 History 17gm Packet] Acetaminophen [Acetaminophen Extra 500 mg G-TUBE Q4HP PRN 06/07/21 10/18/21 History Strength] Aspirin [Aspirin 81mg chewable 81 mg G-TUBE DAILY 06/07/21 10/18/21 History tab] Melatonin 3 mg G-TUBE HS 06/07/21 10/18/21 History Metoclopramide HCl [Metoclopramide 5 mg G-TUBE BID 06/07/21 10/18/21 History 5mg Tab] Vitamin B Complex [B Complex] 1 tab G-TUBE DAILY 06/07/21 10/18/21 History ondansetron HCL [Zofran 4mg Tab*] 4 mg G-TUBE Q8HP PRN 06/07/21 10/18/21 History Omeprazole [Omeprazole 20mg 20 mg G-TUBE DAILY 10/18/21 10/18/21 History Capsule] Height: 1.73 m Weight: 49.895 kg Laboratory Results:: Laboratory Results - last 24 hr 10/18/21 03:36: WBC 20.2 H*, RBC 4.44 L, Hgb 14.3, Hct 45.7, MCV 103.0 H, MCH 32.3 H, MCHC 31.4 L, RDW 14.0, Plt Count 321, MPV 10.0, Neut % (Auto) 84.0 H, Lymph % (Auto) 9.9 L, [place] % (Auto) 5.0, Eos % (Auto) 0.4, Baso % (Auto) 0.6, Neut # (Auto) 17.0 H, Lymph # (Auto) 2.0, [place] # (Auto) 1.0, Eos # (Auto) 0.1, Baso # (Auto) 0.1, Total Counted 100, Neutrophils % (Manual) 77 H, Band Neutrophils % 11.0 H, Lymphocytes % (Manual) 12, Platelet Estimate Normal, Hypochromasia 1+, Macrocytosis 2+ 10/18/21 03:36: Sodium 134 L, Potassium 5.5 H, Chloride 99, Carbon Dioxide 32 H, Anion Gap 8.5, BUN 31 H, Creatinine 0.70, Estimated GFR 116, Est GFR ( Amer) 141, Glucose 154 H, Calcium 8.5, Total Bilirubin 0.5, AST 65 H, ALT 27, Alkaline Phosphatase 108, Total Protein 7.0, Albumin 3.2 L, Globulin 3.8 H, Albumin/Globulin Ratio 0.8 L 10/18/21 03:36: Lactate 1.8 10/18/21 03:36: Phosphorus 5.0 H, Magnesium 2.3, Procalcitonin 0.604 10/18/21 03:42: Urine Color Yellow, Urine Appearance Clear, Urine pH 6.0, Ur Specific [place] 1.025, Urine Protein Negative, Urine Glucose (UA) Negative, Urine Ketones Negative, Urine Blood Negative, Urine Nitrate Negative, Urine Bilirubin Negative, Urine Urobilinogen 1.0, Ur Leukocyte Esterase Negative, Urine WBC 5-10, Amorphous Sediment Trace, Urine Mucus 1+ 02/13/22 03:45: SARS-CoV-2 (PCR) Not detected, Influenza A Untype (PCR) Not detected, Influenza Type B (PCR) Not detected Medical History: Reports:: BPH, Congestive Heart Failure, Chronic Obstructive Pulmonary Disease (COPD), Dementia, Hyperlipidemia, Hypertension, Seizures Denies:: Cancer, Diabetes Mellitus Type 1, Diabetes Mellitus Type 2, Internal Pacemaker, MRSA Assessment and Plan - Assessment and plan all Dx Assessment and Plan for all problems:: Age: 56 yo Serum creatinine: 1 mg/dL Height: 68.0 Inches Weight (kg): 50 Assessment: IBW (kg): 68.40 Dosing wt(kg): 50 Estimated Creatinine clearance (ml/min): 57.6 CRCL method: Cockcroft and Gault using ibw(default). Drug selected: Vancomycin Load
--- NOTE | 2021-10-18 09:28 | HMH.PHAVTE ---
[facility] Pharmacy VTE Monitoring - Patient Demographics Admission date: 10/18/21 Report Date: 10/18/21 Time: 09:28 Allergies/Adverse Reactions: Patient Allergies No Known Allergies Allergy (Verified 10/08/20 12:11) Height: 1.73 m Weight: 57.379 kg Patient Problems: Current Active Problems (This Medical Record has been edited. Action required.) Sepsis (Acute) SIRS (systemic inflammatory response syndrome) (Acute) Hyperkalemia (Acute) - VTE Risk Labs: VTE Related Lab Results Hgb 14.3 g/dL (14.1-18.0) 10/18/21 03:36 Hct 45.7 % (42.0-52.0) 10/18/21 03:36 Plt Count 321 K/mm3 (142-424) 10/18/21 03:36 BUN 31 mg/dl (9-20) H 10/18/21 03:36 Creatinine 0.70 mg/dl (0.66-1.25) 10/18/21 03:36 VTE Score: 5 VTE Risk Level: Low Risk - Prophylaxis Types of VTE Prophylaxis: TEDS Knee High Location of Applied Device: Bilateral Lower Extremeties (KLEVER HOSE ORDERED)
--- NOTE | 2021-10-18 11:59 | HMH.HP ---
*Admission Date: 10/18/21 *Chief complaint: Leukocytosis, fever *History of present illness: 56-year-old white male with history of traumatic brain injury, seizure disorder, alcoholic cerebellar degenerative disease and Warnicke Korsakoff's dementia who has G-tube feedings and is a long-term patient for many years. He has chronic aspiration pneumonia. Brought to the emergency room today due to fever, elevated white cell count, worsening lung exam. Last visit to the hospital was in June for similar presentation. Previous sputum cultures with MDR E. coli sensitive to Zosyn. Vitals positive with tachycardia, tachypnea, leukocytosis, meeting sepsis criteria. Cultures obtained. Initiated on Zosyn and vancomycin. Admitted to medicine for further management. On exam after arriving to the floor, found to be somnolent but stable on supplemental oxygen. Minimal response to verbal and physical stimuli on exam. Unable to obtain review of systems or history from patient. [facility] History I have reviewed the patient's past medical history: Yes (per chart review.) Medical History: Reports:: BPH, Congestive Heart Failure, Chronic Obstructive Pulmonary Disease (COPD), Dementia, Hyperlipidemia, Hypertension, Seizures Denies:: Cancer, Diabetes Mellitus Type 1, Diabetes Mellitus Type 2, Internal Pacemaker, MRSA *Have you ever received a pneumonia vaccine?: Yes *Have you received a flu vaccine this season?: Yes Other Medical History: Reports: Liver Disease Other Surgeries: No: Pacemaker Amputation: No Fractures: No - *Social History Smoking Status: Never smoker Tobacco Type: cigarettes # Packs/Day (cigarettes): 1 #Yrs smoked (if former smoker): 15 Alcohol Intake: former Alcohol Intake Frequency:: other *Occupational Status:: disabled Housing: long-term Household Members: other *Travel in the last 8 weeks: None Family Hx:: Unable to obtain Review of Systems - Review of Systems Review of systems:: unable to obtain Meds Home Medications Medication Instructions Recorded Confirmed Type Doxazosin Mesylate [Doxazosin 1mg 1 mg G-TUBE DAILY 10/08/20 10/18/21 History Tab] Folic Acid 1 mg G-TUBE DAILY 10/08/20 10/18/21 History LORazepam [Ativan 1mg tablet] 1 mg G-TUBE QID 10/08/20 10/18/21 History Lactobacillus Acidophilus 1 cap G-TUBE DAILY 10/08/20 10/18/21 History [Acidophilus] Potassium Chloride [Pot Chlor 20 meq G-TUBE BID 10/08/20 10/18/21 History 20mEq/15mL Oral Soln UDC] Thiamine HCl 100 mg G-TUBE DAILY 10/08/20 10/18/21 History Valproic Acid (As Sodium Salt) 10 ml G-TUBE BID 10/08/20 10/18/21 History [Valproic Acid] polyethylene glycoL 3350 [Miralax 17 gm G-TUBE DAILY PRN 10/08/20 10/18/21 History 17gm Packet] Acetaminophen [Acetaminophen Extra 500 mg G-TUBE Q4HP PRN 06/07/21 10/18/21 History Strength] Aspirin [Aspirin 81mg chewable 81 mg G-TUBE DAILY 06/07/21 10/18/21 History tab] Melatonin 3 mg G-TUBE HS 06/07/21 10/18/21 History Metoclopramide HCl [Metoclopramide 5 mg G-TUBE BID 06/07/21 10/18/21 History 5mg Tab] Vitamin B Complex [B Complex] 1 tab G-TUBE DAILY 06/07/21 10/18/21 History ondansetron HCL [Zofran 4mg Tab*] 4 mg G-TUBE Q8HP PRN 06/07/21 10/18/21 History Cholecalciferol (Vitamin D3) 4,000 unit G-TUBE DAILY 10/18/21 10/18/21 History [Thera-D] Omeprazole [Omeprazole 20mg 20 mg G-TUBE DAILY 10/18/21 10/18/21 History Capsule] Quetiapine Fumarate [Seroquel 100 mg PO 1300 10/18/21 10/18/21 History 100mg tablet] Quetiapine Fumarate [Seroquel 50 50 mg PO TID 10/18/21 10/18/21 History mg Tablets] Quetiapine Fumarate [Seroquel] 200 mg PO BID 10/18/21 10/18/21 History Allergies Allergy/AdvReac Type Severity Reaction Status Date / Time No Known Allergies Allergy Verified 10/08/20 12:11 Exam Vital signs and Labs for Last 24 Hours: Temp Pulse Resp BP Pulse Ox 99.3 F 122 H 18 110/65 95 10/18/21 11:43 10/18/21 11:43 10/18/21 11
--- NOTE | 2021-10-18 22:01 | PC.NURSE ---
150 ml H20 flush given per gtube
[2021-10-19] VITALS (7 sets, daily range): BP systolic 90–128; BP diastolic 56–78; PULSE 96–124; RESP 15–20; TEMP 36.4–38.1; O2SAT 92–99; BMI 19.2
[2021-10-19 06:39] LABS: Basophils % 0.2 % (0.1-2.0); Eosinophils % 0.3 % (0.1-12.0); Hematocrit 37.4 % (42.0-52.0); Lymphocytes # 1.8 K/mm3 (0.7-4.5); Lymphocytes % 13.7 % (10-50); Mean Corpuscular Hemoglobin 32.6 pg (27.0-31.2); Mean Corpuscular Volume 101.7 fl (80-94); Mean Platelet Volume 10.2 fl (7.4-10.4); Monocytes % 7.5 % (1.7-9.3); Neutrophils # 10.5 K/mm3 (1.8-7.8); Neutrophils % 78.3 % (37.0-80.0); Platelet Count 330 K/mm3 (142-424); Red Blood Count 3.67 M/mm3 (4.60-6.20); White Blood Count 13.4 K/mm3 (4.8-10.8)
[2021-10-19 07:02] LABS: Chloride 100 mmol/L (98-107); Potassium 3.3 mmoL/L (3.5-5.1); Sodium 131 mmol/L (136-145)
[2021-10-19 07:05] LABS: Alanine Aminotransferase 26 U/L (12-78); Albumin Level 2.7 g/dl (3.5-5.0); Albumin/Globulin Ratio 0.8 (1.1-1.8); Alkaline Phosphatase 108 U/L (38-126); Anion Gap 5.3 mEq/L (5-15); Aspartate Amino Transferase 70 U/L (17-59); Bilirubin,Total 0.6 mg/dl (0.2-1.3); Blood Urea Nitrogen 17 mg/dl (9-20); Calcium 7.4 mg/dl (8.4-10.2); Carbon Dioxide 29 mmol/L (22.0-30.0); Creatinine Clearance Estimated 133 mL/min (50-200); Estimated Glomerular Filt Rate 171 ml/min (>60); GFR (African American) 207 ML/MIN (>60); Globulin 3.4 g/dL (1.3-3.2); Glucose 116 mg/dl (74-100); Magnesium 2.1 mg/dl (1.6-2.3); Total Protein,Serum 6.1 g/dl (6.3-8.2)
--- NOTE | 2021-10-19 08:52 | HMH.ACPN2 ---
Internal Medicine - PN: Subj *Date: 10/19/21 *Time: 08:52 Interval history: Overall patient is alert, talkative, recognizes me. Is back to his baseline vis-?-vis communication and responsiveness from his senior living status. No fevers. Coughing when he takes a deep breath noted by nursing staff. Exam Vital signs and Labs for Last 24 Hours: Temp Pulse Resp BP Pulse Ox 98.5 F 102 H 20 121/77 98 10/19/21 08:00 10/19/21 08:00 10/19/21 08:00 10/19/21 08:00 10/19/21 08:00 Laboratory Results - last 24 hr 10/19/21 05:49: WBC 13.4 H D, RBC 3.67 L, Hgb 12.0 L, Hct 37.4 L, MCV 101.7 H, MCH 32.6 H, MCHC 32.0, RDW 14.0, Plt Count 330, MPV 10.2, Neut % (Auto) 78.3, Lymph % (Auto) 13.7, [place] % (Auto) 7.5, Eos % (Auto) 0.3, Baso % (Auto) 0.2, Neut # (Auto) 10.5 H, Lymph # (Auto) 1.8, [place] # (Auto) 1.0, Eos # (Auto) 0.0, Baso # (Auto) 0.0 10/19/21 05:49: Sodium 131 L, Potassium 3.3 L D, Chloride 100, Carbon Dioxide 29, Anion Gap 5.3, BUN 17 D, Creatinine 0.50 L D, Estimated Creat Clear 133, Estimated GFR 171, Est GFR ( Amer) 207 D, Glucose 116 H, Calcium 7.4 L, Magnesium 2.1, Total Bilirubin 0.6, AST 70 H, ALT 26, Alkaline Phosphatase 108, Total Protein 6.1 L, Albumin 2.7 L D, Globulin 3.4 H, Albumin/Globulin Ratio 0.8 L I & O for Last 24 hours: Intake & Output 10/16/21 10/17/21 10/18/21 10/19/21 11:59 11:59 11:59 11:59 Intake Total 760 / 760 Output Total 1200 / 1200 Balance -440 / -440 Weight 126 lb 8 oz 126 lb 11.2 oz Microbiology Reports for the Last 24 Hours: Microbiology 10/18/21 03:42 Urine,Catheterized Urine Culture - Preliminary NO GROWTH AFTER 24 HOURS Narrative: Good air movement. Some rhonchi bilaterally but clears with a good breath. G-tube site looks good, Encarnacion catheter draining clear urine. No edema or clubbing or rash, previously noted skin changes and contractures. ENT exam clear. Assessment and Plan (1) HCAP (healthcare-associated pneumonia) Status: Acute Category: Medical Code(s): J18.9 - Pneumonia, unspecified organism (2) Hyperkalemia Status: Acute Category: Medical Code(s): E87.5 - Hyperkalemia (3) Sepsis Status: Acute Qualifiers: Sepsis type: sepsis due to unspecified organism Sepsis acute organ dysfunction status: without acute organ dysfunction Qualified Code(s): A41.9 - Sepsis, unspecified organism Category: Medical Code(s): A41.9 - Sepsis, unspecified organism (4) Cachexia Status: Chronic Category: Medical Code(s): R64 - Cachexia (5) Gastrojejunostomy tube status Status: Chronic Category: Medical Code(s): Z93.4 - Other artificial openings of gastrointestinal tract status (6) Seizure disorder Status: Chronic Category: Medical Code(s): G40.909 - Epilepsy, unspecified, not intractable, without status epilepticus (7) Severe protein-calorie malnutrition Status: Chronic Category: Medical Code(s): E43 - Unspecified severe protein-calorie malnutrition (8) Wernicke-Korsakoff syndrome (alcoholic) Status: Chronic Category: Medical Code(s): F10.96 - Alcohol use, 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 Await blood cultures. Probable transition back to senior living tomorrow if electrolytes are okay. Mild hypokalemia but tube feeds are now going at his previous rate and he was hyperkalemic on admission so we will not replace this and simply check tomorrow. Mild hypocalcemia, replace intravenously.
--- NOTE | 2021-10-19 09:28 | DIET.NUTRFU ---
Pt tolerating TF at 30mL/hr with small amount of residuals. Goal rate of 70 mL/hr. Pt labs: Na 131L, K 3.3L, glucose 116H, Cr 0.50L. Pt lives at intermediate, anticipate discharge tomorrow.
--- NOTE | 2021-10-19 09:31 | PC.NURSE ---
Seroquel administered after charge nurse, Elidia, was told by Dr. Hu it was ok to give.
--- NOTE | 2021-10-19 09:34 | SW/DCPLANNER ---
Addendum entered by Elidia Linares 10/20/21 08:30: The plan is for this patient to return to [facility] today: I have informed Luzmaria. COVID swab is required prior to discharge. Original Note: This patient currently resides at [facility] under ICF level of care per [facility] w[facility]. The plan for this patient is to return to [facility] tomorrow pending no setbacks. Luzmaria has stated that patient will require a COVID swab prior to returning.
[2021-10-20] VITALS: BP 115/67; PULSE 51; RESP 20; TEMP 36.3; O2SAT 91
[2021-10-20 04:00] VITALS: BP 122/65; PULSE 116; RESP 20; TEMP 36.8; O2SAT 96
[2021-10-20 05:00] VITALS: BMI 19.2
--- NOTE | 2021-10-20 05:54 | PC.NURSE ---
PATIENT RESTED WELL THRU THIS RN SHIFT. NO NEW CONCERN OR COMPLAINTS AT THIS TIME
[2021-10-20 06:25] VITALS: PULSE 111; RESP 20
[2021-10-20 06:46] LABS: Basophils # 0.1 K/mm3 (0-0.2); Basophils % 0.4 % (0.1-2.0); Eosinophils # 0.1 K/mm3 (0.0-0.4); Hematocrit 37.6 % (42.0-52.0); Hemoglobin 12.4 g/dL (14.1-18.0); Lymphocytes # 2.5 K/mm3 (0.7-4.5); Lymphocytes % 20.5 % (10-50); Mean Corpuscular HGB Conc 32.9 g/dL (31.8-35.4); Mean Corpuscular Hemoglobin 33.1 pg (27.0-31.2); Mean Corpuscular Volume 100.4 fl (80-94); Mean Platelet Volume 9.6 fl (7.4-10.4); Monocytes # 1.2 K/mm3 (0.1-1.0); Monocytes % 9.9 % (1.7-9.3); Neutrophils # 8.3 K/mm3 (1.8-7.8); Neutrophils % 68.3 % (37.0-80.0); Platelet Count 404 K/mm3 (142-424); Red Blood Count 3.74 M/mm3 (4.60-6.20); Red Cell Distribution Width 13.6 % (11.5-17.5); White Blood Count 12.2 K/mm3 (4.8-10.8)
[2021-10-20 06:58] LABS: Chloride 96 mmol/L (98-107); Sodium 129 mmol/L (136-145)
[2021-10-20 07:00] LABS: Potassium 3.4 mmoL/L (3.5-5.1)
[2021-10-20 07:02] LABS: Anion Gap 5.4 mEq/L (5-15); Blood Urea Nitrogen 10 mg/dl (9-20); Calcium 7.2 mg/dl (8.4-10.2); Carbon Dioxide 31 mmol/L (22.0-30.0); Creatinine Clearance Estimated 166 mL/min (50-200); Estimated Glomerular Filt Rate 222 ml/min (>60); GFR (African American) 268 ML/MIN (>60); Glucose 114 mg/dl (74-100)
--- NOTE | 2021-10-20 07:26 | HMH.DCSUM ---
General - General Admission date:: 10/18/21 Discharge date: 10/20/21 HPI HPI: 56-year-old white male with history of traumatic brain injury, seizure disorder, alcoholic cerebellar degenerative disease and Warnicke Korsakoff's dementia who has G-tube feedings and is a retirement patient for many years. He has chronic aspiration pneumonia. Brought to the emergency room today due to fever, elevated white cell count, worsening lung exam. Last visit to the hospital was in June for similar presentation. Previous sputum cultures with MDR E. coli sensitive to Zosyn. Vitals positive with tachycardia, tachypnea, leukocytosis, meeting sepsis criteria. Cultures obtained. Initiated on Zosyn and vancomycin. Admitted to medicine for further management. On exam after arriving to the floor, found to be somnolent but stable on supplemental oxygen. Minimal response to verbal and physical stimuli on exam. Unable to obtain review of systems or history from patient. Hospital Course Hospital Course: 56-year-old male with chronic debility, chronic encephalopathy, seizure disorder, cachexia, admitted for sepsis and healthcare acquired/aspiration pneumonia. Initiated on broad-spectrum antibiotics with Vanco and Zosyn. Tolerated antibiotics well. Symptoms defervesced. No positive cultures during admission. Over the next 48 hours, return to baseline mentation. Looked good on exam this morning. Will transition to oral antibiotics to complete a total of 10 days of therapy with Levaquin and clindamycin. Electrolyte disturbances normalized. -Continue chronic medications for seizure and mood -Continue tube feeds per nutrition orders at the retirement -Continue supplemental oxygen with goal to wean over the coming days to week. -Medically stable for discharge back to the retirement. Examined on day of discharge. Objective Vital signs: Temp Pulse Resp BP Pulse Ox 98.3 F 111 H 20 122/65 96 10/20/21 04:00 10/20/21 06:25 10/20/21 06:25 10/20/21 04:00 10/20/21 04:00 Narrative: - Constitutional NAD on 3 L NC, cachectic, chronically ill appearing, alert and oriented - *Routine HEENT Exam Head: Present: other (bitemporal wasting.) Eye: Present: PERRL ENT: Present: mucous membranes moist - *Routine Neck Exam Present: supple. Absent: lymphadenopathy - *Routine Respiratory Exam Present: rhonchi, crackles. Absent: wheezes - *Routine Cardiovascular Exam Present: tachycardia. Absent: murmur - *Routine Abdominal Exam Present: soft, normoactive bowel sounds. Absent: tenderness - *Routine Extremities Exam Absent: cyanosis, clubbing, edema - *Routine Skin Exam Present: warm. Absent: rash - *Routine Neurological Exam Present: baseline neuro exam, oriented to person and place, contractures of extremities (chronic) Results Labs on day of discharge: Labs from last 24 hours 10/20/21 10/20/21 06:00 06:00 WBC 12.2 H RBC 3.74 L Hgb 12.4 L Hct 37.6 L MCV 100.4 H MCH 33.1 H MCHC 32.9 RDW 13.6 Plt Count 404 MPV 9.6 Neut % (Auto) 68.3 Lymph % (Auto) 20.5 [place] % (Auto) 9.9 H Eos % (Auto) 1.0 Baso % (Auto) 0.4 Neut # (Auto) 8.3 H Lymph # (Auto) 2.5 [place] # (Auto) 1.2 H Eos # (Auto) 0.1 Baso # (Auto) 0.1 Sodium 129 L Potassium 3.4 L Chloride 96 L Carbon Dioxide 31 H Anion Gap 5.4 BUN 10 D Creatinine 0.40 L Estimated Creat Clear 166 Estimated GFR 222 Est GFR ( Amer) 268 D Glucose 114 H Calcium 7.2 L Preliminary micro results at discharge 10/18/21 03:36 Blood Culture - Preliminary Blood NO GROWTH AFTER 48 HOURS 10/18/21 03:36 Blood Culture - Preliminary Blood NO GROWTH AFTER 48 HOURS DS: Diagnosis - Discharge Diagnosis (1) HCAP (healthcare-associated pneumonia) Status: Acute (2) Hyperkalemia Status: Acute (3) Sepsis Status: Acute (4) Cachexia Status: Chronic
[2021-10-20 07:51] VITALS: BP 116/71; PULSE 115; RESP 16; TEMP 36.6; O2SAT 98
[2021-10-20 08:37] LABS: Coronavirus 19, PCR Not Detected (NotDetected); Influenza A, PCR Not Detected (NotDetected); Influenza B, PCR Not Detected (NotDetected)
--- NOTE | 2021-10-20 10:43 | PC.NURSE ---
Waiting on EMS to arrive for transport
== END 2021-10-20 11:04 ==
LOC: ER 04:26 → 2ND 06:34
PROVIDERS: Internal Medicine Adolescent Medicine; Admitting Provider Family Medicine; Emergency Provider Student in an Organized Health Care Education/Training Program; PCP Internal Medicine Adolescent Medicine; Visit Provider Internal Medicine Adolescent Medicine
DX: J18.9 Pneumonia, unspecified organism (principal); Z79.899 Other long term (current) drug therapy; R64 Cachexia; E43 Unspecified severe protein-calorie malnutrition; Z68.1 Body mass index [BMI] 19.9 or less, adult; G40.909 Epilepsy, unspecified, not intractable, without status epilepticus; F10.96 Alcohol use, unspecified with alcohol-induced persisting amnestic disorder; E87.5 Hyperkalemia; Z93.1 Gastrostomy status; Z87.820 Personal history of traumatic brain injury; Z20.822 Contact with and (suspected) exposure to COVID-19
CPT/HCPCS: G0378; 36415; 51702; 71045; 80048; 80053; 81001; 83605; 83735; 84100; 84145; 85007; 85025; 87040; 87070; 87077; 87086; 87186; 87205; 94761; 96365; 96367; 96375; 99285; C9803; J2543; J3370; U0003; U0005

== ENCOUNTER → 2022-01-13 11:42 | Outpatient (CLI) | payer MEDICARE, MEDICAID, SELFPAY ==
--- NOTE | 2022-01-13 11:44 | FL_ITS ---
FINAL REPORT CLINICAL HISTORY: feeding tube placement confirmation FINDINGS: SINGLE VIEW ABDOMEN A single view of the abdomen was obtained. Contrast has been injected into the G-tube. There is opacification of the stomach and proximal duodenum. There is no evidence of contrast leak. There is a nonobstructive bowel gas pattern. IMPRESSION: No evidence of contrast leak. Reviewed, Interpreted and Dictated by Yuri Tory III, MD Transcribed by Albina Bernal Authenticated by Yuri Troy III, MD on 01/13/2022 01:03:44 PM [facility]
== END ==
PROVIDERS: PCP Internal Medicine Adolescent Medicine; Visit Provider Surgery
DX: Z93.4 Other artificial openings of gastrointestinal tract status (principal)
CPT/HCPCS: 49465

== ENCOUNTER → 2022-02-03 10:56 | Outpatient (CLI) | payer MEDICARE, MEDICAID, SELFPAY ==
--- NOTE | 2022-02-03 11:02 | FL_ITS ---
FINAL REPORT CLINICAL HISTORY: trouble swallowing 3.13 fluoro time FINDINGS: MODIFIED BARIUM SWALLOW History: Dysphagia FINDINGS: Fluoroscopy was provided for the speech pathologist to evaluate the swallowing mechanism. The patient was given several different consistencies of barium while the swallow was visualized fluoroscopically. The report of the speech pathologist should be consulted prior to making dietary decisions. FLUOROSCOPY TIME: 3 minutes 13 seconds IMPRESSION: Modified barium swallow under fluoroscopic guidance. Please see the report of the speech pathologist for Dietary recommendations. Films reviewed , interpreted and dictated by Dr. Troy Transcribed by Neville Rojas PA-C. Reviewed, Interpreted and Dictated by Yuri Troy III, MD Transcribed by AYLA Patricia Authenticated and [facility]
--- NOTE | 2022-02-03 12:33 | HMH.SLMBS2 ---
Speech & Language Evaluation Speech/Language Mod Barium Swallow Start: 02/03/22 11:47 Freq: once Status: Complete Protocol: Document 02/03/22 11:47 ALEXANDRACRYSTAL (Rec: 02/03/22 12:33 [email or web address] [id number]) General Information General Current Food Consistancy NPO Dentition Edentulous Oxygen Status Room Air Facial Symmetry Symmetrical Ability to Follow Directions Good Communication Ability Severe Impairment MBS Recommendations Diet Dietary Recommendations Pureed,[place] Liquids Treatment/Strategies Treatment Recommendation Compens. Strategy Educat. Strategy/Precaution Recommend Sitting Upright (90 deg),Small Bites and Sips,Alternate Liquids/Solids Mod Barium Swallow Impressions Summary and Impressions Oral Phase Impression Mild Impairment Oral Phase Summary Prolonged mastication noted with mechanical soft as well as mild oral residue. Difficulty with mastication partially 2' dentition as well as diffuse weakness. Pharyngeal Phase Impression Moderate Impairment Pharyngeal Phase Summary No aspiration noted during the study. Transient penetration noted with large consecutive drinks of both thin and nectar thick liquids, however, penetration did not reach the vocal folds and was cleared independently upon completion of the pharyngeal swallow. Moderate pharyngeal residue noted with thin liquids, which reduced with additional swallows but did not clear completely. Mild pharyngeal residue noted with puree, and pudding. Chin tuck attempted to clear residue, which was not successful. Residue mostly clears with a nectar thick liquid wash after each bite. Severe diffuse pharyngeal residue noted with mechanical soft, largely 2' incomplete mastication and attempting to swallow large, unmasticated pieces of food. [employer]ATOR recommending nectar thick
== END ==
PROVIDERS: PCP Internal Medicine Adolescent Medicine; Visit Provider Internal Medicine Adolescent Medicine
DX: R13.10 Dysphagia, unspecified (principal); K94.23 Gastrostomy malfunction
CPT/HCPCS: 70371; 92611

== ENCOUNTER → 2022-05-05 10:48 | Outpatient (CLI) | payer MEDICARE, MEDICAID, SELFPAY ==
--- NOTE | 2022-05-05 11:00 | FL_ITS ---
FINAL REPORT CLINICAL HISTORY: dysphagia ft: 4:12 FINDINGS: MODIFIED BARIUM SWALLOW History: Dysphagia FINDINGS: Fluoroscopy was provided for the speech pathologist to evaluate the swallowing mechanism. The patient was given several different consistencies of barium while the swallow was visualized fluoroscopically. The report of the speech pathologist should be consulted prior to making dietary decisions. FLUOROSCOPY TIME: 4 minutes 12 seconds IMPRESSION: Modified barium swallow under fluoroscopic guidance. Please see the report of the speech pathologist for Dietary recommendations. Films reviewed , interpreted and dictated by Dr. Troy Transcribed by Neville Rojas PA-C. Reviewed, Interpreted and Dictated by Yuri Troy III, MD Transcribed by AYLA Patricia Authenticated and [facility]
--- NOTE | 2022-05-05 13:47 | HMH.SLMBS2 ---
Speech & Language Evaluation Speech/Language Mod Barium Swallow Start: 05/05/22 13:30 Freq: once Status: Complete Protocol: Document 05/05/22 13:30 SHAYNA (Rec: 05/05/22 13:46 SHAYNA [id number]) General Information General Current Food Consistency NPO Dentition Edentulous Oxygen Status Room Air Facial Symmetry Patient Baseline Ability to Follow Directions Good Communication Ability Moderate Impairment MBS Recommendations Diet Dietary Recommendations Pureed,Honey Liquids Comment Given pt and family GOC. Safest recommendation is NPO with PEG. Treatment/Strategies Strategy/Precaution Recommend Sitting Upright (90 deg), Double Swallow,Liquids from Cup,Liquids from Spoon,Small Bites and Sips,Alternate Liquids/Solids Mod Barium Swallow Impressions Summary and Impressions Oral Phase Impression Moderate Impairment Oral Phase Summary Moderate oral dysphagia. Severely prolonged mastication time Nwith mechanical soft solid given lack of dentition. No significant oral residue was noted on the study, when when pushed to test for fatigue. Pharyngeal Phase Impression Moderate Impairment Pharyngeal Phase Summary Moderate pharyngeal dysphagia. Pt presents with decreased hyolaryngeal movement, decreased epiglottic inversion, decreased BOT retraction and pharyngeal squeeze, and moderate-severe vallecular residue. Residue was reduced with multiple swallows and alternating bites and sips, but it did not fully clear. Pt is also noted to fatigue throughout the study. No aspiration or penetration was noted on the study, even when pushed to assess level of fatigue. Pt is at risk of aspiration given inability to clear residue in the pharynx. Safest recommendation to prevent aspiration would be NPO with nutrition via
== END ==
PROVIDERS: PCP Internal Medicine Adolescent Medicine; Visit Provider Internal Medicine Adolescent Medicine
DX: R13.10 Dysphagia, unspecified (principal); D50.9 Iron deficiency anemia, unspecified
CPT/HCPCS: 70371; 92611

== ENCOUNTER → 2022-06-09 11:18 | Outpatient (CLI) | payer MEDICARE, MEDICAID, SELFPAY ==
--- NOTE | 2022-06-09 11:23 | FL_ITS ---
FINAL REPORT CLINICAL HISTORY: check tube placement, FT 0:13 FINDINGS: Gastrostomy tube evaluation Clinical history: Newly placed gastrostomy tube. Findings: Under fluoroscopic guidance the patient's gastrostomy tube was injected. Gastrografin injection demonstrates appropriate intraluminal placement of the gastrostomy tube within the stomach. There is no extravasation of contrast. IMPRESSION: Appropriately placed gastrostomy tube. Fluoroscopy time: 20 seconds Films reviewed , interpreted and dictated by Dr. Troy Transcribed by Neville Rojas PA-C. Reviewed, Interpreted and Dictated by Yuri Troy III, MD Transcribed by AYLA Patricia Authenticated and . [facility]
== END ==
PROVIDERS: PCP Internal Medicine Adolescent Medicine; Visit Provider Surgery
DX: Z78.9 Other specified health status (principal)
CPT/HCPCS: 49465

== ENCOUNTER → 2022-07-05 10:53 | Outpatient (CLI) | payer MEDICARE, MEDICAID, SELFPAY ==
--- NOTE | 2022-07-05 11:01 | FL_ITS ---
FINAL REPORT CLINICAL HISTORY: DIFFICULTY SWALLOWING, 4:13 FLUORO TIME FINDINGS: MODIFIED BARIUM SWALLOW History: Dysphagia FINDINGS: Fluoroscopy was provided for the speech pathologist to evaluate the swallowing mechanism. The patient was given several different consistencies of barium while the swallow was visualized fluoroscopically. The report of the speech pathologist should be consulted prior to making dietary decisions. FLUOROSCOPY TIME:4 minutes 13 seconds IMPRESSION: Modified barium swallow under fluoroscopic guidance. Please see the report of the speech pathologist for Dietary recommendations. Films reviewed , interpreted and dictated by Dr. Troy Transcribed by Neville Rojas PA-C. Reviewed, Interpreted and Dictated by Yuri Troy III, MD Transcribed by AYLA Patricia Authenticated and [facility]
--- NOTE | 2022-07-05 12:08 | HMH.SLMBS2 ---
Speech & Language Evaluation Speech/Language Mod Barium Swallow Start: 07/05/22 11:38 Freq: once Status: Complete Protocol: Document 07/05/22 11:38 SHAYNA (Rec: 07/05/22 12:07 SHAYNA [id number]) General Information General Current Food Consistency NPO Dentition Edentulous Oxygen Status Room Air Facial Symmetry Patient Baseline Ability to Follow Directions Good Communication Ability Severe Impairment MBS Recommendations Treatment/Strategies Strategy/Precaution Recommend Sitting Upright (90 deg), Double Swallow,Small Bites and Sips,Alternate Liquids/Solids Mod Barium Swallow Impressions Summary and Impressions Oral Phase Impression Moderate Impairment Oral Phase Summary Moderate oral dysphagia. Significantly prolonged mastication time with mechanical soft solids 2' lack of dentition and generalized weakness. No significant oral residue was noted, even when pushed for fatigue. Pharyngeal Phase Impression Moderate Impairment Pharyngeal Phase Summary Moderate pharyngeal dysphagia characterized by decreased hyolaryngeal excursion, decreased epiglottic inversion , decreased BOT retraction and pharyngeal squeeze, and moderate-severe vallecular residue. Attempted to clear residue with multiple swallows , thin wash, puree wash, and chin tuck. Pt was able to slighly reduce residue with strategies, but unable to fully clear. Given inability to clear residue in the pharynx, pt is at high risk for aspiration after the swallow , even though no aspiration was noted on the study. Speech/Language MBS Assessment/Goals/Plan Assessment Date of Evaluation: 07/05/22 Evaluation Type Initial Certification Assessment/Problems History of dysphagia and modified diet. Does Patient Qualify for Service Yes Qualify/Failure Comment Based on the results of the modified barium swallow study, pt would be
== END ==
PROVIDERS: PCP Internal Medicine Adolescent Medicine; Visit Provider Internal Medicine Adolescent Medicine
DX: R13.10 Dysphagia, unspecified (principal)
CPT/HCPCS: 70371; 92611

== ENCOUNTER 2022-07-26 22:55 | Emergency (ER) | payer MEDICARE, MEDICAID, SELFPAY ==
[2022-07-26 22:56] VITALS: BP 113/81; PULSE 113; RESP 16; TEMP 37.2; O2SAT 95; BMI 18.2
[2022-07-26 23:26] VITALS: BMI 18.2
--- NOTE | 2022-07-26 23:30 | XR_ITS ---
PROCEDURE INFORMATION: Exam: XR Chest Exam date and time: 07/26/2022 11:50 PM Age: 57 years old Clinical indication: Cough TECHNIQUE: Imaging protocol: Radiologic exam of the chest. Views: 1 view. COMPARISON: CR XR CHEST PORTABLE 10/18/2021 3:37 AM FINDINGS: Lungs: In the lung bases there is scattered areas of atelectasis versus developing pneumonia. Pleural spaces: Unremarkable. No pleural effusion. No pneumothorax. Heart/Mediastinum: Unremarkable. No cardiomegaly. Bones/joints: Unremarkable. IMPRESSION: In the lung bases there is scattered areas of atelectasis versus developing pneumonia.
[2022-07-26 23:37] LABS: Coronavirus 19, PCR Not Detected (NotDetected); Influenza A, PCR Not Detected (NotDetected); Influenza B, PCR Not Detected (NotDetected)
[2022-07-26 23:41] LABS: Basophils # 0.2 K/mm3 (0-0.2); Basophils % 1.4 % (0.1-2.0); Eosinophils # 0.3 K/mm3 (0.0-0.4); Eosinophils % 2.1 % (0.1-12.0); Hematocrit 41.6 % (42.0-52.0); Hemoglobin 13.9 g/dL (14.1-18.0); Lymphocytes # 2.7 K/mm3 (0.7-4.5); Lymphocytes % 22.5 % (10-50); Mean Corpuscular HGB Conc 33.5 g/dL (31.8-35.4); Mean Corpuscular Hemoglobin 33.2 pg (27.0-31.2); Mean Corpuscular Volume 99.3 fl (80-94); Mean Platelet Volume 9.4 fl (7.4-10.4); Monocytes # 1.5 K/mm3 (0.1-1.0); Monocytes % 12.3 % (1.7-9.3); Neutrophils # 7.3 K/mm3 (1.8-7.8); Neutrophils % 61.6 % (37.0-80.0); Platelet Count 512 K/mm3 (142-424); Red Blood Count 4.19 M/mm3 (4.60-6.20); Red Cell Distribution Width 13.5 % (11.5-17.5); White Blood Count 11.9 K/mm3 (4.8-10.8)
[2022-07-26 23:43] LABS: Chloride 101 mmol/L (98-107); Potassium 4.4 mmoL/L (3.5-5.1); Sodium 142 mmol/L (136-145)
--- NOTE | 2022-07-26 23:43 | PC.NURSE ---
RESP HERE DOING A NEB
[2022-07-26 23:46] LABS: Anion Gap 13.4 mEq/L (5-15); Blood Urea Nitrogen 24 mg/dl (9-20); Carbon Dioxide 32 mmol/L (22.0-30.0); Creatinine Clearance Estimated 155 mL/min (50-200); Estimated Glomerular Filt Rate 221 ml/min (>60); GFR (African American) 267 ML/MIN (>60)
--- NOTE | 2022-07-26 23:46 | ECG_ITS ---
APPROVED REPORT Exam: Resting ECG HR:102 bpm ECG Measurements Heart Rate 102 AXES QRSd 77 QRS 120 QT 352 T 78 QTc 411 Conclusion Sinus Tachycardia POSSIBLE RIGHT VENTRICULAR HYPERTROPHY [SOME/ALL OF: PROMINENT R IN V1, LATE TRANSITION, RAD, PRETTY, SSS] ABNORMAL ECG UNCONFIRMED REPORT Electronically signed by : Shiv Hu MD 07/29/2022 20:18:31
[2022-07-26 23:47] LABS: Calcium 9.4 mg/dl (8.4-10.2); Glucose 102 mg/dl (74-100)
[2022-07-26 23:48] LABS: Lactic Acid 0.8 mmol/L (0.7-2.1)
[2022-07-27 00:02] LABS: Troponin I < 0.01 ng/ml (0.00-0.034)
[2022-07-27 00:47] LABS: Microscopic, Urine URINE MICROSCOPIC (MICROSCOPIC)
[2022-07-27 00:49] LABS: Appearance,Urine CLEAR (Clear); Bilirubin,Urine Negative (Negative); Blood, Urine Negative (Negative); Color,Urine YELLOW (Yellow); Glucose,Urine (UA) Negative (Negative); Ketones,Urine Negative (Negative); Leukocyte Esterase,Urine Negative (Negative); Nitrate,Urine Negative (Negative); PH,Urine 7.5 (5.0-8.5); Protein,Urine Negative (Negative)
[2022-07-27 01:00] VITALS: BP 160/71; PULSE 107; RESP 16; O2SAT 94
[2022-07-27 01:11] LABS: Bacteria,Urine 1+ /lpf; Mucus,Urine 3+ /lpf; RBC,Urine Occasional #/hpf (0-3); WBC,Urine Occasional #/hpf (0-3)
[2022-07-27 02:00] VITALS: BP 112/73; PULSE 110; RESP 16; O2SAT 93
[2022-07-27 03:00] VITALS: BP 105/69; PULSE 107; RESP 16; O2SAT 93
[2022-07-27 03:28] LABS: Troponin I < 0.01 ng/ml (0.00-0.034)
[2022-07-27 04:00] VITALS: BP 107/72; PULSE 100; RESP 16; O2SAT 93
--- NOTE | 2022-07-27 04:04 | HMH.EDSOB ---
Discharge Plan Disposition Patient Disposition: Xfer SNF Prescriptions Prescriptions: New cephalexin [cephalexin] 500 mg capsule 500 mg PO TID Qty: 30 0RF No Action ondansetron HCl 4 MG tablet 4 mg G-TUBE Q8HP PRN (Reason: Nausea/VOMITING) melatonin 3 MG tablet 3 mg G-TUBE HS acetaminophen 500 MG tablet 500 mg G-TUBE Q4HP PRN (Reason: PAIN) metoclopramide HCl 5 MG tablet 5 mg G-TUBE BID aspirin 81 MG tablet,chewable 81 mg G-TUBE DAILY vitamin B complex 1 EACH tablet 1 tab G-TUBE DAILY omeprazole 20 MG capsule,delayed release(DR/EC) 20 mg G-TUBE DAILY cholecalciferol (vitamin D3) 100 MCG tablet 4,000 unit G-TUBE DAILY quetiapine 200 MG tablet 200 mg PO BID Rx Instructions: TAKES WITH 50 MG BID (TOTAL DOSE OF 250 MG) quetiapine 50 MG tablet 50 mg PO TID quetiapine 100 MG tablet 100 mg PO 1300 Rx Instructions: GIVE WITH 50 MG AT 1300. clindamycin HCl 150 MG capsule 450 mg PO TID 7 Days Qty: 64 0RF levofloxacin 750 MG tablet 750 mg PO DAILY 7 Days Qty: 7 0RF polyethylene glycol 3350 17 GM powder in packet 17 g G-TUBE DAILY PRN (Reason: Constipation) doxazosin 1 MG tablet 1 mg G-TUBE DAILY thiamine HCl (vitamin B1) 100 MG tablet 100 mg G-TUBE DAILY potassium chloride 20 MEQ/15 ML liquid 20 meq G-TUBE BID valproic acid (as sodium salt) 250 MG/5 ML solution 10 ml G-TUBE BID folic acid 1 MG tablet 1 mg G-TUBE DAILY lorazepam 1 MG tablet 1 mg G-TUBE QID Lactobacillus acidophilus 1 EACH capsule 1 cap G-TUBE DAILY Referrals Follow up/Referrals: Shiv Hu MD [Primary Care Provider] - See instructions Clinical Impressions Clinical Impression: Bronchitis Instructions Patient Instructions: DI for Shortness of Breath Discharge ED Provider: Aldo Benitez Resp/SOB HPI General Chief Complaint: Shortness of Breath/Dyspnea Stated Complaint: short of air Time Seen by Provider: 07/26/22 23:00 Mode of Arrival: EMS Source of Information: EMS and Medical Record Limitations: Physical Limitations Description of Symptoms (Recalled from ER Triage Doc. by RN): pt arrived to the ED per EMS from [facility] for raised temp low b/p and low o2 as well as crackles. pt arrived alert and oriented to him self pt was unable to express any new concerns for himself. History of Present Illness pt was sent from [facility] for fever and possible pneumnia MD Complaint: shortness of breath Onset (ago): hour(s) Severity: moderate Known history of: aspiration pneumonia Related Data Home oxygen amount: none Home Medications Medication Instructions Recorded Confirmed Lactobacillus acidophilus 1 cap G-tube DAILY probiotic 10/08/20 06/09/22 doxazosin 1 mg tablet 1 mg G-tube DAILY Hypertension 10/08/20 06/09/22 folic acid 1 mg tablet 1 mg G-tube DAILY Supplement 10/08/20 06/09/22 lorazepam 1 mg tablet 1 mg G-tube QID Anxiety 10/08/20 06/09/22 polyethylene glycol 3350 17 gram 17 g G-tube DAILY PRN Constipation 10/08/20 06/09/22 oral powder packet potassium chloride 20 mEq/15 mL 20 meq G-tube BID Supplement 10/08/20 06/09/22 oral liquid thiamine HCl (vitamin B1) 100 mg 100 mg G-tube DAILY Supplement 10/08/20 06/09/22 tablet valproic acid (as sodium salt) 250 10 ml G-tube BID seizures 10/08/20 06/09/22 mg/5 mL oral solution acetaminophen 500 mg tablet 500 mg G-tube Q4HP PRN PAIN 06/07/21 06/09/22 aspirin 81 mg chewable tablet 81 mg G-tube DAILY HEART HEALTH 06/07/21 06/09/22 melatonin 3 mg tablet 3 mg G-tube HS SLEEP 06/07/21 06/09/22 metoclopramide HCl 5 mg tablet 5 mg G-tube BID Heartburn 06/07/21 06/09/22 ondansetron HCl 4 mg tablet 4 mg G-tube Q8HP PRN 06/07/21 06/09/22 Nausea/VOMITING vitamin B complex 1 tab G-tube DAILY Supplement 06/07/21 06/09/22 cholecalciferol (vitamin D3) 100 4,000 unit G-tube DAILY Supplement 10/18/21 06/09/22 mcg (4,000 unit) tab
[2022-07-27 05:44] VITALS: BP 102/73; PULSE 110; RESP 16; TEMP 36.7; O2SAT 93
--- NOTE | 2022-07-27 05:46 | PC.NURSE ---
paged jerad @ this time
--- NOTE | 2022-07-27 05:53 | PC.NURSE ---
report called [facility] notified of pt need for 2l o2
--- NOTE | 2022-07-27 05:55 | PC.NURSE ---
notified emeli rangel is ready to go back to [facility]
[2022-07-27 05:56] VITALS: BP 107/70; PULSE 104; RESP 16; TEMP 36.7; O2SAT 95
== END 2022-07-27 06:13 ==
PROVIDERS: Emergency Provider Emergency Medicine; PCP Internal Medicine Adolescent Medicine
DX: J40 Bronchitis, not specified as acute or chronic (principal); Z79.82 Long term (current) use of aspirin; Z79.899 Other long term (current) drug therapy; I10 Essential (primary) hypertension; F41.9 Anxiety disorder, unspecified; R56.9 Unspecified convulsions; K21.9 Gastro-esophageal reflux disease without esophagitis; J44.9 Chronic obstructive pulmonary disease, unspecified
CPT/HCPCS: 71045; 80048; 81001; 83605; 84484; 85025; 87040; 93005; 94640; 96365; 96367; 96375; 99285; C9803; J0696; U0003; U0005

== ENCOUNTER 2022-10-08 07:07 | Emergency (ER) | payer MEDICARE, MEDICAID, SELFPAY ==
[2022-10-08 07:19] VITALS: BP 124/79; PULSE 101; RESP 16; TEMP 36.6; O2SAT 95; BMI 23.3
--- NOTE | 2022-10-08 07:25 | PC.NURSE ---
18 fr g tube placed at pts old gtube site. 30 ml instillled in ballon. kub ordered for placement check
--- NOTE | 2022-10-08 07:29 | XR_ITS ---
FINAL REPORT CLINICAL HISTORY: check g tube placement COMPARISON: 03/24/2021 FINDINGS: ABDOMEN SINGLE VIEW / KUB A single view of the abdomen was obtained with a coned down view of the pelvis. There is a nonobstructed bowel gas pattern. A G-tube is present. Contrast was injected into the G-tube which opacifies the stomach. There is no evidence of contrast leak. IMPRESSION: G tube present with tip in the stomach. Nonobstructing bowel gas pattern. Reviewed, Interpreted and Dictated by Yuri Troy III, MD Transcribed by Kelli Rivera Authenticated and [facility]
[2022-10-08 07:30] VITALS: BP 118/78; PULSE 97; O2SAT 95
--- NOTE | 2022-10-08 07:41 | HMH.EDRECH ---
Discharge Plan Disposition Patient Disposition: Home, Self-Care Chief Complaint: Recheck/Abnormal Lab/Rx Prescriptions Prescriptions: No Action ondansetron HCl 4 MG tablet 4 mg G-TUBE Q8HP PRN (Reason: Nausea/VOMITING) melatonin 3 MG tablet 3 mg G-TUBE HS acetaminophen 500 MG tablet 500 mg G-TUBE Q4HP PRN (Reason: PAIN) metoclopramide HCl 5 MG tablet 5 mg G-TUBE BID aspirin 81 MG tablet,chewable 81 mg G-TUBE DAILY vitamin B complex 1 EACH tablet 1 tab G-TUBE DAILY omeprazole 20 MG capsule,delayed release(DR/EC) 20 mg G-TUBE DAILY cholecalciferol (vitamin D3) 100 MCG tablet 4,000 unit G-TUBE DAILY quetiapine 200 MG tablet 200 mg PO BID Rx Instructions: TAKES WITH 50 MG BID (TOTAL DOSE OF 250 MG) quetiapine 50 MG tablet 50 mg PO TID quetiapine 100 MG tablet 100 mg PO 1300 Rx Instructions: GIVE WITH 50 MG AT 1300. clindamycin HCl 150 MG capsule 450 mg PO TID 7 Days Qty: 64 0RF levofloxacin 750 MG tablet 750 mg PO DAILY 7 Days Qty: 7 0RF polyethylene glycol 3350 17 GM powder in packet 17 g G-TUBE DAILY PRN (Reason: Constipation) doxazosin 1 MG tablet 1 mg G-TUBE DAILY thiamine HCl (vitamin B1) 100 MG tablet 100 mg G-TUBE DAILY potassium chloride 20 MEQ/15 ML liquid 20 meq G-TUBE BID valproic acid (as sodium salt) 250 MG/5 ML solution 10 ml G-TUBE BID folic acid 1 MG tablet 1 mg G-TUBE DAILY lorazepam 1 MG tablet 1 mg G-TUBE QID Lactobacillus acidophilus 1 EACH capsule 1 cap G-TUBE DAILY cephalexin [cephalexin] 500 mg capsule 500 mg PO TID Qty: 30 0RF Referrals Follow up/Referrals: Yrn Rutledge MD [Primary Care Provider] - See instructions Clinical Impressions Clinical Impression: Gastrojejunostomy tube dislodgement Discharge ED Provider: Eli (ED)Aldo HPI General Chief Complaint: Recheck/Abnormal Lab/Rx Stated Complaint: replace gtube Time Seen by Provider: 10/08/22 07:20 Mode of Arrival: EMS Source of Information: EMS Limitations: No Limitations Description of Symptoms (Recalled from ER Triage Doc. by RN): pt comes in due to pulling gtube out earlier this morning. History of Present Illness HPI narrative: sent from [facility] for g tube replacement MD complaint: other (g tube replacement ) Initial visit (ago): hour(s) Returns today for: other (gtube replacement ) Related Data Home Medications Medication Instructions Recorded Confirmed Lactobacillus acidophilus 1 cap G-tube DAILY probiotic 10/08/20 06/09/22 doxazosin 1 mg tablet 1 mg G-tube DAILY Hypertension 10/08/20 06/09/22 folic acid 1 mg tablet 1 mg G-tube DAILY Supplement 10/08/20 06/09/22 lorazepam 1 mg tablet 1 mg G-tube QID Anxiety 10/08/20 06/09/22 polyethylene glycol 3350 17 gram 17 g G-tube DAILY PRN Constipation 10/08/20 06/09/22 oral powder packet potassium chloride 20 mEq/15 mL 20 meq G-tube BID Supplement 10/08/20 06/09/22 oral liquid thiamine HCl (vitamin B1) 100 mg 100 mg G-tube DAILY Supplement 10/08/20 06/09/22 tablet valproic acid (as sodium salt) 250 10 ml G-tube BID seizures 10/08/20 06/09/22 mg/5 mL oral solution acetaminophen 500 mg tablet 500 mg G-tube Q4HP PRN PAIN 06/07/21 06/09/22 aspirin 81 mg chewable tablet 81 mg G-tube DAILY HEART HEALTH 06/07/21 06/09/22 melatonin 3 mg tablet 3 mg G-tube HS SLEEP 06/07/21 06/09/22 metoclopramide HCl 5 mg tablet 5 mg G-tube BID Heartburn 06/07/21 06/09/22 ondansetron HCl 4 mg tablet 4 mg G-tube Q8HP PRN 06/07/21 06/09/22 Nausea/VOMITING vitamin B complex 1 tab G-tube DAILY Supplement 06/07/21 06/09/22 cholecalciferol (vitamin D3) 100 4,000 unit G-tube DAILY Supplement 10/18/21 06/09/22 mcg (4,000 unit) tablet omeprazole 20 mg capsule,delayed 20 mg G-tube DAILY GERD 10/18/21 06/09/22 release quetiapine 100 mg tablet 100 mg PO 1300 ANXIETY/MOOD 10/18/21 06/09/22 quetiapine 200 mg tablet 200 mg PO
[2022-10-08 08:00] VITALS: BP 108/82; PULSE 92; RESP 16; O2SAT 95
[2022-10-08 08:30] VITALS: BP 120/81; PULSE 90; RESP 17; O2SAT 95
[2022-10-08 09:00] VITALS: BP 125/85; PULSE 92; RESP 16; O2SAT 95
[2022-10-08 11:07] VITALS: BP 120/80; PULSE 76; RESP 18; TEMP 36.7
== END 2022-10-08 11:09 | disposition home or self-care (01) ==
PROVIDERS: Emergency Provider Emergency Medicine; PCP Family Medicine
DX: K94.23 Gastrostomy malfunction (principal); Z87.891 Personal history of nicotine dependence
CPT/HCPCS: 43762; 74018; 99283; 99284

== ENCOUNTER 2022-12-24 14:45 | Observation (INO) | payer MEDICARE, MEDICAID, SELFPAY ==
[2022-12-24] VITALS (12 sets, daily range): BP systolic 119–155; BP diastolic 79–100; PULSE 113–128; RESP 16–18; TEMP 36.4–36.8; O2SAT 90–96; BMI 19.9; BMI 18.8
--- NOTE | 2022-12-24 14:49 | HMH.EDNVD ---
Discharge Plan Disposition Patient Disposition: Admitted as Observation Condition: Fair Chief Complaint: GI Bleed Clinical Impressions Clinical Impression: Aspiration pneumonia, Acute GI bleeding Discharge ED Provider: Ray [facility] Nausea/Vomiting/Diarrhea HPI General Chief complaint: GI Bleed Stated complaint: vomiting Time Seen by Provider: 12/24/22 14:52 Mode of Arrival: EMS Limitations: Hypoxic brain injury History of Present Illness HPI Narrative: The patient presents to the emergency department complaining of vomiting since approximately 2 hours ago. The patient has a gastrostomy tube. He is a long-term patient. He is bedbound following a hypoxic brain injury. He is on no blood thinners. According to EMS the patient's emesis is coffee-ground in appearance. MD complaint: vomiting Related Data Home Medications Medication Instructions Recorded Confirmed acetaminophen 500 mg tablet 500 mg feeding tube Q4H PRN Pain 12/24/22 12/24/22 aspirin 81 mg chewable tablet 81 mg feeding tube DAILY Heart 12/24/22 12/24/22 health cholecalciferol (vitamin D3) 100 100 mcg feeding tube DAILY 12/24/22 12/24/22 mcg (4,000 unit) tablet Supplement doxazosin 1 mg tablet 1 mg feeding tube DAILY High blood 12/24/22 12/24/22 pressure folic acid 0.8 mg capsule 0.8 mg feeding tube DAILY 12/24/22 12/24/22 Supplement lorazepam 0.5 mg tablet 0.25 mg feeding tube HS Anxiety 12/24/22 12/24/22 metoclopramide HCl 5 mg tablet 5 mg feeding tube BID GERD 12/24/22 12/24/22 omeprazole 20 mg capsule,delayed 20 mg feeding tube DAILY GERD 12/24/22 12/24/22 release potassium chloride 20 mEq/15 mL 20 meq feeding tube BID Supplement 12/24/22 12/24/22 oral liquid quetiapine 100 mg tablet 100 mg feeding tube BID Dementia 12/24/22 12/24/22 quetiapine 200 mg tablet 200 mg feeding tube HS Dementia 12/24/22 12/24/22 thiamine HCl (vitamin B1) 100 mg 100 mg feeding tube DAILY 12/24/22 12/24/22 tablet Supplement valproic acid (as sodium salt) 250 250 mg feeding tube BID Seizure 12/24/22 12/24/22 mg/5 mL oral solution Allergies Allergy/AdvReac Type Severity Reaction Status Date / Time No Known Allergies Allergy Verified 06/09/22 11:00 [facility] Disclaimer: The information contained in this section may have been updated after the patient was seen, as this information can be updated by other users. Medical History (Updated 12/24/22 @ 19:59 by Ray [facility] MD) Gastrostomy tube in place Social History Smoking Status: Never smoker second hand exposure: No alcohol intake: former current occupational status: disabled Travel in the last 8 weeks: None household members: other housing: long-term caffeine: No ROS Obtained: Yes All systems reviewed & no additional complaints except as documented Physical Exam General General appearance: alert Head Head exam: atraumatic Eye Eye exam: Present PERRL and other (Disconjugate gaze) ENT ENT exam: Present normal exam Neck Neck exam: Present normal inspection Chest Chest inspection: Present normal inspection Respiratory Respiratory exam: Present normal lung sounds bilaterally; Absent respiratory distress Cardiovascular Cardiovascular exam: Present tachycardia Abdominal Exam Abdominal exam: Present soft, normal bowel sounds and other (There is a gastrostomy tube in place.); Absent distention or tenderness Extremities Exam Extremities exam: Present other (The patient's lower extremities are contracted. Pulses are palpable in all 4 extremities.) Back Exam Back exam: Present normal inspection Neurological Exam Neurological exam: Present alert Psychiatric Psychiatric exam: Present normal affect Skin Skin exam: Present warm Medical Decision Making Gene Inquiry Pt receiving controlled substance: No Vital Signs: 12/24/22 14:46 12/24/22 14:47 12/24/22 15:00 Temperature 97.5 F [address] Te
[2022-12-24 15:03] LABS: Basophils # 0.1 K/mm3 (0-0.2); Basophils % 0.3 % (0.1-2.0); Eosinophils # 0.1 K/mm3 (0.0-0.4); Eosinophils % 0.6 % (0.1-12.0); Lymphocytes # 2.2 K/mm3 (0.7-4.5); Lymphocytes % 15.1 % (10-50); Mean Corpuscular HGB Conc 33.4 g/dL (31.8-35.4); Mean Corpuscular Hemoglobin 32.8 pg (27.0-31.2); Mean Corpuscular Volume 98.1 fl (80-94); Monocytes # 1.2 K/mm3 (0.1-1.0); Monocytes % 8.1 % (1.7-9.3); Neutrophils # 11.3 K/mm3 (1.8-7.8); Neutrophils % 75.8 % (37.0-80.0); Platelet Count 363 K/mm3 (142-424); Red Blood Count 4.89 M/mm3 (4.60-6.20); Red Cell Distribution Width 13.7 % (11.5-17.5); White Blood Count 14.9 K/mm3 (4.8-10.8)
[2022-12-24 15:07] LABS: Chloride 99 mmol/L (98-107); Potassium 3.8 mmoL/L (3.5-5.1); Sodium 141 mmol/L (136-145)
[2022-12-24 15:09] LABS: Activated Partial Thrombo Time 27.1 seconds (22.8-30.6); Alanine Aminotransferase 24 U/L (12-78); Aspartate Amino Transferase 35 U/L (17-59); Bilirubin,Total 0.6 mg/dl (0.2-1.3); Blood Urea Nitrogen 20 mg/dl (9-20); Creatinine Clearance Estimated 139 mL/min (50-200); Estimated Glomerular Filt Rate 171 ml/min (>60); GFR (African American) 207 ML/MIN (>60); INR 1.06 (0.9-1.1); Prothrombin Time 11.4 seconds (10.1-12.5)
[2022-12-24 15:10] LABS: Albumin Level 4.1 g/dl (3.5-5.0); Albumin/Globulin Ratio 0.9 (1.1-1.8); Alkaline Phosphatase 150 U/L (38-126); Anion Gap 11.8 mEq/L (5-15); Calcium 9.9 mg/dl (8.4-10.2); Carbon Dioxide 34 mmol/L (22.0-30.0); Globulin 4.5 g/dL (1.3-3.2); Glucose 150 mg/dl (74-100); Lipase 38 U/L (23-300); Total Protein,Serum 8.6 g/dl (6.3-8.2)
--- NOTE | 2022-12-24 15:40 | PC.NURSE ---
rounded on pt no complaints at this time, visible able to see pt unable to really call out
--- NOTE | 2022-12-24 16:34 | PC.NURSE ---
rounded on pt no complaints at this time, did request for something to eat spoke with er and he says to hold off on feeding for now due to pt vomiting , let pt no plain and turned light off, call light @ bs
--- NOTE | 2022-12-24 17:03 | CT_ITS ---
PROCEDURE INFORMATION: Exam: CT Abdomen And Pelvis With Contrast Exam date and time: 12/24/2022 6:08 PM Age: 57 years old Clinical indication: Abdominal pain; Additional info: Abdominal pain with elevated wbc TECHNIQUE: Imaging protocol: Computed tomography of the abdomen and pelvis with contrast. Radiation optimization: All CT scans at this facility use at least one of these dose optimization techniques: automated exposure control; mA and/or kV adjustment per patient size (includes targeted exams where dose is matched to clinical indication); or iterative reconstruction. Contrast material: ISOVUE; Contrast volume: 70 ml; Contrast route: IV; REPORTING DATA: Count of CT and Cardiac NM exams in prior 12 months: This patient has received 0 known CTs and 0 known cardiac nuclear medicine studies in the 12 months prior to the current study. COMPARISON: CT ABDOMEN PELVIS W CON 10/08/2020 1:[address] chest 06/07/2021 FINDINGS: Lungs: Moderate size wedge-shaped area of consolidation noted in the posterior right lower lobe suggesting possible pneumonia. This is in the area of previously noted consolidation on prior CTs suggesting this may reflect chronic and/or recurrent pneumonia. Mild left basilar atelectasis. Mediastinal space: Diffuse distal esophageal wall thickening with submucosal enhancement suggesting possible esophagitis. There is associated mild dilatation of the distal esophagus filled with fluid that may be due to reflux. Liver: Normal. No mass. Gallbladder and bile ducts: Normal. No calcified stones. No ductal dilation. Pancreas: Normal. No ductal dilation. Spleen: Normal. No splenomegaly. Adrenal glands: Normal. No mass. Kidneys and ureters: Stable 11 mm benign-appearing cyst in the posterior mid right kidney. Interval development of a 3 mm stone in the posterior mid left kidney. Kidneys and ureters otherwise unremarkable with no obstructing stones or uropathy. Stomach and bowel: Moderate to large amount of fecal material in the rectum which is dilated up to 7.9 cm. No evident rectal wall thickening. Mild to moderate amounts of fecal material throughout the remainder of the colon. Stomach is distended with air and fluid. PEG tube is satisfactory position in the body of the stomach. A enteric catheter of some type noted in the distal ileal loop in the right lower quadrant region which is unchanged in position from the previous study. GI tract structures otherwise unremarkable with no evident wall thickening allowing for incomplete distention. Appendix: No evidence of appendicitis. Intraperitoneal space: Unremarkable. No free air. No significant fluid collection. Vasculature: Atherosclerotic changes of the aorta and iliacs noted. No evidence of aneurysm. [id number] atherosclerotic narrowing of the origins of the common iliac arteries on both sides [id number] that may have progressed some in the interval. Lymph nodes: Unremarkable. No enlarged lymph nodes. Urinary bladder: Unremarkable as visualized. Reproductive: Unremarkable as visualized. Bones/joints: Interval development of avascular necrosis of the right femoral head without evident articular collapse. Small area of avascular necrosis of the left femoral head without articular collapse appears stable. Soft tissues: Unremarkable. IMPRESSION: 1. Right lower lobe consolidation may reflect chronic and/or recurrent infiltrate including possible aspiration pneumonia. 2. Avascular necrosis of both hips. The changes of the right hip have developed in the interval. 3. Dilated fluid distended distal esophagus with wall thickening that may be
--- NOTE | 2022-12-24 17:55 | PC.NURSE ---
CT delayed d/t patient pulling out IV and staff not aware. PETER Russo is aware.
--- NOTE | 2022-12-24 18:05 | PC.NURSE ---
Patient pulled out original IV to lower left forearm
--- NOTE | 2022-12-24 18:29 | PC.NURSE ---
ronda Guadarrama bs
--- NOTE | 2022-12-24 18:31 | PC.NURSE ---
H&H drawn and sent to lab
[2022-12-24 18:36] LABS: Hematocrit 42.6 % (42.0-52.0)
[2022-12-24 18:39] LABS: Hemoglobin 14.3 g/dL (14.1-18.0)
--- NOTE | 2022-12-24 19:18 | PC.NURSE ---
Quality Control Coordinator paging Dr. Jones at this time.
--- NOTE | 2022-12-24 19:25 | PC.NURSE ---
Patient had large coffee ground emesis into floor and on himself. Patient was cleaned up. Attending notified and medicated per MAR
--- NOTE | 2022-12-24 19:32 | PC.NURSE ---
Attending is on the phone with Dr. Jones for possible admission
[2022-12-24 19:39] LABS: Coronavirus 19, PCR Not Detected (NotDetected); Influenza A, PCR Not Detected (NotDetected); Influenza B, PCR Not Detected (NotDetected)
--- NOTE | 2022-12-24 19:46 | PC.NURSE ---
Pt vomited coffee ground emesis, gastro-occult card obtained and sent to lab. Pt cleaned up and changed at this time. Pt repositioned in bed for comfort. No other needs or complaints voiced at this time.
[2022-12-24 19:54] LABS: Occult Blood,Gastric Fluid Positive (Negative)
--- NOTE | 2022-12-24 20:21 | PC.NURSE ---
RECEIVED PHONE REPORT FROM TAWANNA/ED NURSE AT 2009. PATIENT ADMITTED WITH PNEUMONIA AND GI BLEED. BEDRIDDEN, CONTRACTURED. HAS GASTROSTOMY TUBE.
--- NOTE | 2022-12-24 20:32 | PC.NURSE ---
Pt. arrived to floor by bed at 20:30
[2022-12-24 21:47] LABS: POC Glucose,Bedside 134 (70-110)
--- NOTE | 2022-12-24 23:03 | PC.NURSE ---
PATIENT INCONT OF B&B. UNABLE TO GIVE U/A/ ATTEMPTED TO IN/OUT CATH BUT UNABLE TO INSERT. MAY NEED A COUDE CATHETER. UNABLE TO CHECK PACEMENT OF J-TUBE. SQL SSRS SSIS DEVELOPER NOTIFIED.
[2022-12-25 03:16] LABS: POC Glucose,Bedside 117 (70-110)
[2022-12-25 04:00] VITALS: BP 99/54; PULSE 116; RESP 18; TEMP 36.8; O2SAT 92; BMI 18.8
--- NOTE | 2022-12-25 04:41 | PC.NURSE ---
patient has remained in bed with side rails up and padded and hob elevated 30 degrees. no seizure activity noted. vital signs stable/afebrile. Was unable to obtain U/A as will requie a coude catheter. oracle data warehouse developer notified. cath attempts made patient nauseated. also Unable to check G-Tube placement and perform flushes due to no equipement available to access the ports. oracle data warehouse developer aware. patient is total care. legs contractured. unable to hold cup due to no fine motor skills. patient is NPO. no GI bleeding or N/V onthis shift since admission.
[2022-12-25 06:55] LABS: Hematocrit 39.2 % (42.0-52.0); Hemoglobin 13.1 g/dL (14.1-18.0); Mean Corpuscular HGB Conc 33.4 g/dL (31.8-35.4); Mean Corpuscular Hemoglobin 32.7 pg (27.0-31.2); Mean Corpuscular Volume 98.1 fl (80-94); Red Cell Distribution Width 13.8 % (11.5-17.5); White Blood Count 10.7 K/mm3 (4.8-10.8)
[2022-12-25 06:56] LABS: Basophils % 0.3 % (0.1-2.0); Eosinophils # 0.2 K/mm3 (0.0-0.4); Eosinophils % 1.5 % (0.1-12.0); Lymphocytes # 2.7 K/mm3 (0.7-4.5); Lymphocytes % 24.9 % (10-50); Mean Platelet Volume 9.8 fl (7.4-10.4); Monocytes # 1.2 K/mm3 (0.1-1.0); Monocytes % 11.2 % (1.7-9.3); Neutrophils # 6.6 K/mm3 (1.8-7.8); Platelet Count 316 K/mm3 (142-424)
[2022-12-25 07:11] LABS: Chloride 110 mmol/L (98-107); Potassium 4.1 mmoL/L (3.5-5.1); Sodium 141 mmol/L (136-145)
[2022-12-25 07:14] LABS: Anion Gap 8.1 mEq/L (5-15); Blood Urea Nitrogen 25 mg/dl (9-20); Calcium 8.8 mg/dl (8.4-10.2); Carbon Dioxide 27 mmol/L (22.0-30.0); Creatinine Clearance Estimated 132 mL/min (50-200); Estimated Glomerular Filt Rate 171 ml/min (>60); GFR (African American) 207 ML/MIN (>60); Glucose 104 mg/dl (74-100)
[2022-12-25 07:22] VITALS: BP 103/68; PULSE 103; RESP 18; TEMP 36.7; O2SAT 93
--- NOTE | 2022-12-25 08:10 | EXP.PHA.CONS ---
Pharmacy Consult Date: 12/25/22 Time: 08:10 Referring provider: DR. DOHERTY Reason for Consult:: VANCOMYCIN DOSING Allergies Allergy/AdvReac Type Severity Reaction Status Date / Time No Known Allergies Allergy Verified 06/09/22 11:00 Home Medications Medication Instructions Recorded Confirmed Type acetaminophen 500 mg tablet 500 mg feeding tube Q4H PRN Pain 12/24/22 12/24/22 History aspirin 81 mg chewable tablet 81 mg feeding tube DAILY Heart 12/24/22 12/24/22 History health cholecalciferol (vitamin D3) 100 100 mcg feeding tube DAILY 12/24/22 12/24/22 History mcg (4,000 unit) tablet Supplement doxazosin 1 mg tablet 1 mg feeding tube DAILY High blood 12/24/22 12/24/22 History pressure folic acid 0.8 mg capsule 0.8 mg feeding tube DAILY 12/24/22 12/24/22 History Supplement lorazepam 0.5 mg tablet 0.25 mg feeding tube HS Anxiety 12/24/22 12/24/22 History metoclopramide HCl 5 mg tablet 5 mg feeding tube BID GERD 12/24/22 12/24/22 History omeprazole 20 mg capsule,delayed 20 mg feeding tube DAILY GERD 12/24/22 12/24/22 History release potassium chloride 20 mEq/15 mL 20 meq feeding tube BID Supplement 12/24/22 12/24/22 History oral liquid quetiapine 100 mg tablet 100 mg feeding tube BID Dementia 12/24/22 12/24/22 History quetiapine 200 mg tablet 200 mg feeding tube HS Dementia 12/24/22 12/24/22 History thiamine HCl (vitamin B1) 100 mg 100 mg feeding tube DAILY 12/24/22 12/24/22 History tablet Supplement valproic acid (as sodium salt) 250 250 mg feeding tube BID Seizure 12/24/22 12/24/22 History mg/5 mL oral solution New Prescriptions to Start Prescriptions: Height: 1.75 m Weight: 57.861 kg Laboratory Results:: Laboratory Results - last 24 hr 12/24/22 14:50: WBC 14.9 H, RBC 4.89, Hgb 16.0, Hct 48.0, MCV 98.1 H, MCH 32.8 H, MCHC 33.4, RDW 13.7, Plt Count 363, MPV 9.0, Neut % (Auto) 75.8, Lymph % (Auto) 15.1, [place] % (Auto) 8.1, Eos % (Auto) 0.6, Baso % (Auto) 0.3, Neut # (Auto) 11.3 H, Lymph # (Auto) 2.2, [place] # (Auto) 1.2 H, Eos # (Auto) 0.1, Baso # (Auto) 0.1 12/24/22 14:50: PT 11.4, INR 1.06, APTT 27.1 12/24/22 14:50: Sodium 141, Potassium 3.8, Chloride 99, Carbon Dioxide 34 H, Anion Gap 11.8, BUN 20, Creatinine 0.50 L, Estimated Creat Clear 139, Estimated GFR 171, Est GFR ( Amer) 207, Glucose 150 H, Calcium 9.9, Total Bilirubin 0.6, AST 35, ALT 24, Alkaline Phosphatase 150 H, Total Protein 8.6 H D, Albumin 4.1, Globulin 4.5 H, Albumin/Globulin Ratio 0.9 L, Lipase 38 12/24/22 15:11: Blood Type O Positive, Antibody Screen Negative 12/24/22 18:30: Hgb 14.3 D, Hct 42.6 12/24/22 19:23: Gastric Occult Blood Positive 12/24/22 19:35: SARS-CoV-2 (PCR) Not detected, Influenza A Untype (PCR) Not detected, Influenza Type B (PCR) Not detected 12/24/22 21:40: POC Glucose 134 H 12/25/22 03:08: POC Glucose 117 H 12/25/22 06:45: WBC 10.7 D, RBC 4.00 L, Hgb 13.1 L, Hct 39.2 L, MCV 98.1 H, MCH 32.7 H, MCHC 33.4, RDW 13.8, Plt Count 316, MPV 9.8, Neut % (Auto) 62.0, Lymph % (Auto) 24.9, [place] % (Auto) 11.2 H, Eos % (Auto) 1.5, Baso % (Auto) 0.3, Neut # (Auto) 6.6, Lymph # (Auto) 2.7, [place] # (Auto) 1.2 H, Eos # (Auto) 0.2, Baso # (Auto) 0.0 12/25/22 06:45: Sodium 141, Potassium 4.1, Chloride 110 H, Carbon Dioxide 27, Anion Gap 8.1, BUN 25 H, Creatinine 0.50 L, Estimated Creat Clear 132, Estimated GFR 171, Est GFR ( Amer) 207, Glucose 104 H D, Calcium 8.8 Medical History: Medical History (Updated 12/24/22 @ 19:59 by Ray Vargas MD) Gastrostomy tube in place Assessment and Plan Assessment and plan all Dx Assessment and Plan for all problems:: Pharmacokinetic dosing service Objective: Patient: Floor: Age: 57 yo Serum creatinine: 1 mg/dL Height: 68.9 Inches Weight (kg): 58 Assessment: IBW (kg): 70.47 Dosing wt(kg): 58 Estimated Creatinine clearance (ml/min): 66.1 CRCL method: Cockcroft and Gault using ibw(default).
[2022-12-25 08:30] LABS: POC Glucose,Bedside 99 (70-110)
[2022-12-25 10:56] VITALS: BP 102/69; PULSE 100; RESP 19; TEMP 36.7; O2SAT 96
--- NOTE | 2022-12-25 12:46 | EXP.HP ---
History of Present Illness *Admission Date: 12/24/22 *Reason for visit:: Coffee-ground emesis with cough and fever *History of present illness: 57-year-old white male with significant neurologic and multiple medical problems from history of sepsis/septic shock with stroke disease in the past who has been left with G-tube feedings and is a functional paraplegic. Lives at the [facility] where he has been for several years. Also has a history of dementia-most likely related to a long history of alcoholism in the past. He was noted to have some coffee-ground emesis yesterday and sent to the emergency department. Found to be febrile, slight leukocytosis, admitted to hospital for further evaluation for the coffee-ground emesis and his history of recurrent aspiration pneumonia episodes. [facility] Disclaimer: The information contained in this section may have been updated after the patient was seen, as this information can be updated by other users. Medical History (Updated 12/25/22 @ 12:49 by Shiv Hu MD) Gastrostomy tube in place Social History Smoking Status: Never smoker second hand exposure: No alcohol intake: former current occupational status: disabled Travel in the last 8 weeks: None household members: other housing: half-way caffeine: No Review of Systems Review of Systems Review of systems:: pertinent systems reviewed and negative unless documented below Meds Home Medications and Allergies Home Medications Medication Instructions Recorded Confirmed Type acetaminophen 500 mg tablet 500 mg feeding tube Q4H PRN Pain 12/24/22 12/24/22 History aspirin 81 mg chewable tablet 81 mg feeding tube DAILY Heart 12/24/22 12/24/22 History health cholecalciferol (vitamin D3) 100 100 mcg feeding tube DAILY 12/24/22 12/24/22 History mcg (4,000 unit) tablet Supplement doxazosin 1 mg tablet 1 mg feeding tube DAILY High blood 12/24/22 12/24/22 History pressure folic acid 0.8 mg capsule 0.8 mg feeding tube DAILY 12/24/22 12/24/22 History Supplement lorazepam 0.5 mg tablet 0.25 mg feeding tube HS Anxiety 12/24/22 12/24/22 History metoclopramide HCl 5 mg tablet 5 mg feeding tube BID GERD 12/24/22 12/24/22 History omeprazole 20 mg capsule,delayed 20 mg feeding tube DAILY GERD 12/24/22 12/24/22 History release potassium chloride 20 mEq/15 mL 20 meq feeding tube BID Supplement 12/24/22 12/24/22 History oral liquid quetiapine 100 mg tablet 100 mg feeding tube 0900,1700 12/24/22 12/25/22 History Dementia quetiapine 200 mg tablet 200 mg feeding tube HS Dementia 12/24/22 12/24/22 History thiamine HCl (vitamin B1) 100 mg 100 mg feeding tube DAILY 12/24/22 12/24/22 History tablet Supplement valproic acid (as sodium salt) 250 250 mg feeding tube BID Seizure 12/24/22 12/24/22 History mg/5 mL oral solution Lactobacillus acidophilus 1 1,000 mmu cells PO DAILY PROBIOTIC 12/25/22 12/25/22 History billion cell capsule dextromethorphan-guaifenesin 5 20 ml PO Q6HP PRN COUGH/CONGESTION 12/25/22 12/25/22 History mg-100 mg/5 mL oral liquid (Robitussin Honey Max DM) melatonin 3 mg tablet 3 mg PO HS Insomnia 12/25/22 12/25/22 History nystatin-triamcinolone 100,000 1 applic topical BIDP PRN YEAST 12/25/22 12/25/22 History unit/g-0.1 % topical cream LIKE PLACES ON FACE EACH SHIFT polyethylene glycol 3350 17 17 g PO DAILY CONSTIPATION 12/25/22 12/25/22 History gram/dose oral powder (Miralax) simethicone 80 mg chewable tablet 80 mg PO Q6HP PRN GAS/BLOATING 12/25/22 12/25/22 History New Prescriptions to Start Prescriptions: Allergies Allergy/AdvReac Type Severity Reaction Status Date / Time No Known Allergies Allergy Verified 06/09/22 11:00 Exam Data for Last 24 hours Vital signs and Labs for Last 24 Hours: Temp Pulse Resp BP Pulse Ox 98.0 F 100 H 19 102/69 L 96 12/25/22 10:56 12/05
--- NOTE | 2022-12-25 13:35 | PC.NURSE ---
ATTEMPTED TO CONTACT DIETITIAN.
--- NOTE | 2022-12-25 14:38 | DIET.NUTRFU ---
RD consulted for TF, patient is NPO with G-tube for 100% nutrition. Patient is from [facility], spoke to [place]. He had been receiving isosource 1.5 at 60ml/hr x20ml. He coughed and vomited at times, he is on reglan and protonix to help with tolerance. Admitted with coffee ground emesis with recurrent aspiration PNA. Will start TF, Osom[place] 1.2 at 10ml/hr increase by 10ml Q4H to reach goal rate of 70ml/hr x24 hours providing 1680ml/2016kcal/95gm protein and 1377.6ml formula water. At nursing they ran TF for only 20 hrs providing his gut to rest for 4 hours. Once goal rate is reached or if he is having trouble increasing due to tolerance may need to decrease regimen to 20hours also.
[2022-12-25 15:06] VITALS: BP 103/63; PULSE 93; RESP 18; TEMP 36.6; O2SAT 86
--- NOTE | 2022-12-25 15:26 | PC.NURSE ---
TUBE FEED VERIFIED AND STARTED AT THIS TIME. 10ML OF WATER WHEN CHECKING RESIDUAL. PLACEMENT VERIFIED BY AUSCULTATION. TUBE FEED STARTING AT 10ML/HR AT THIS TIME. WILL INCREASE IN 4 HOURS IF TOLERATING WELL.
[2022-12-25 15:35] LABS: POC Glucose,Bedside 105 (70-110)
--- NOTE | 2022-12-25 16:49 | PC.NURSE ---
PT HAS BEEN ALERT TO SELF THIS SHIFT. TOLERATING RA WELL. X2 ASSIST, HAS BEEN TURNED Q2H. PT REMAINS INCONTINENT, KEPT CLEAN AND DRY. G TUBE CDI. TUBE FEEDS TOLERATED WELL THUS FAR. PT HAS COUGH, IS PRODUCING SOME SPUTUM, CULTURE OBTAINED. PT HAS NOT C/O PAIN, AND NO N/V NOTED THUS FAR THIS SHIFT. VSS.
[2022-12-25 19:59] VITALS: BP 115/69; PULSE 88; RESP 18; TEMP 36.6; O2SAT 91
[2022-12-25 20:00] VITALS: O2SAT 91
[2022-12-25 21:44] LABS: POC Glucose,Bedside 134 (70-110)
--- NOTE | 2022-12-25 22:12 | PC.NURSE ---
AT 1930 G-TUBE PLACEMENT VERIFIED BY AUSCULTATION AND ASPIRATION. 5 ML RESIDUAL. FEEDING INCREASED TO 20 ML/HR/PUMP.
[2022-12-26] VITALS: BP 112/71; PULSE 104; RESP 18; TEMP 36.1; O2SAT 91
--- NOTE | 2022-12-26 00:12 | PC.NURSE ---
AT 2330 GTUBE PLACEMENT VERIFIED, 10 ML REDIDUAL. FEED RATE INCREASED TO 30 ML. TOLERATING WELL.
[2022-12-26 02:55] LABS: POC Glucose,Bedside 122 (70-110)
[2022-12-26 04:00] VITALS: BP 111/67; PULSE 106; RESP 18; TEMP 36.4; O2SAT 90; BMI 19.8
--- NOTE | 2022-12-26 04:35 | PC.NURSE ---
PATIENT'S 02 SAT HAD BEEN RUNNING 91% ON ROOM AIR. SATS 85% AT 0400. ENCOURAGED PATIENT TO COUGH AND DEEP BREATH. DOES NOT WANT TO USE INCENTIVE SPIROMETER AT THS TIME. HAS MOIST COUGH BUT DOES NOT PRODUCE SPUTUM. 02 APPLIED AT 2LNC. 02 SAT INCREASED TO 91%. TUBE FEEDING RUNNING AT 30 ML/HR/PUMP. TOLERATING WELL. TURNED Q 2 HRS PER STAFF. PATIENT IS TOTAL CARE/BEDRIDDEN. ORIENTED TO PERSON AND SPEECH HARD TO UNDERSTAND. SIDE RAILS X 2 UP AND PADDED. NO SEIZURE ACTIVITY NOTED. LAC VIEUX UP 40 DEGREES.
[2022-12-26 07:24] LABS: Basophils % 0.4 % (0.1-2.0); Eosinophils # 0.4 K/mm3 (0.0-0.4); Eosinophils % 5.2 % (0.1-12.0); Hematocrit 36.5 % (42.0-52.0); Hemoglobin 11.9 g/dL (14.1-18.0); Lymphocytes # 2.2 K/mm3 (0.7-4.5); Lymphocytes % 30.6 % (10-50); Mean Corpuscular HGB Conc 32.7 g/dL (31.8-35.4); Mean Corpuscular Hemoglobin 32.3 pg (27.0-31.2); Mean Corpuscular Volume 98.7 fl (80-94); Mean Platelet Volume 10.1 fl (7.4-10.4); Monocytes # 0.9 K/mm3 (0.1-1.0); Monocytes % 12.1 % (1.7-9.3); Neutrophils # 3.7 K/mm3 (1.8-7.8); Neutrophils % 51.6 % (37.0-80.0); Platelet Count 302 K/mm3 (142-424); Red Cell Distribution Width 13.8 % (11.5-17.5); White Blood Count 7.2 K/mm3 (4.8-10.8)
[2022-12-26 07:32] LABS: Chloride 112 mmol/L (98-107); Sodium 144 mmol/L (136-145)
[2022-12-26 07:35] LABS: Blood Urea Nitrogen 18 mg/dl (9-20); Creatinine Clearance Estimated 173 mL/min (50-200); Estimated Glomerular Filt Rate 221 ml/min (>60); GFR (African American) 267 ML/MIN (>60)
[2022-12-26 07:36] LABS: Calcium 8.5 mg/dl (8.4-10.2); Carbon Dioxide 29 mmol/L (22.0-30.0); Glucose 130 mg/dl (74-100)
[2022-12-26 07:39] VITALS: BP 104/69; PULSE 72; RESP 18; TEMP 36.6; O2SAT 97
--- NOTE | 2022-12-26 09:19 | EXP.ACUTE.PN ---
Subjective *Date: 12/26/22 *Time: 09:19 Interval history: No changes overnight. Patient is tolerated tube feedings well with minimal residuals. Nurses report no evidence of coffee-ground emesis, dark stools or other GI bleed. Hemoglobin this morning has dropped to 11 g. Medical Exam Vital signs and Labs for Last 24 Hours: Vital Signs Temp Pulse Resp BP Pulse Ox 12/26/22 07:39 97.9 F 72 18 104/69 L 97 12/26/22 04:00 97.6 F 106 H 18 111/67 90 L 12/26/22 00:00 97.0 F L 104 H 18 112/71 91 L 12/25/22 20:00 91 L 12/25/22 19:59 97.9 F 88 18 115/69 91 L 12/25/22 15:06 97.8 F 93 H 18 103/63 L 86 L 12/25/22 10:56 98.0 F 100 H 19 102/69 L 96 Intake and Output 12/25/22 12/26/22 12/26/22 19:59 03:59 11:59 Intake Total 1992 631992 483 1992 Output Total 0 / 2 1 / 2 1 / Balance 1990 481990 Intake: Intake, Tube Feeding Amount 23 / 308 114 / 308 171 / 308 Intake, Tube Irrigant Amount 50 / 100 50 / 100 Intake, Total IV Amount 853 / 1585 470 / 1585 262 / 1585 0.9 % Sodium Chloride 1000ML 1, 553 / 1185 370 / 1185 262 / 1185 000 ml @ 50 mls/hr IV .Q20H [facility] Rx#:[id number] Piperacillin/Tazo 3.375 gm In 0 50 / 150 100 / 150 .9 % Sodium Chloride 50 ml @ 100 mls/hr IV Q6H [facility] Rx#: [id number] Vancomycin HCl 1,000 mg In 0.9 250 / 250 % Sodium Chloride 250 ml @ 125 mls/hr IV Q18H [facility] Rx#:[id number] Output: Output, Urine Amount 0 / 2 1 / 2 1 / 2 Other: Number of Unmeasured Voids 1 1 1 Weight 134 lb 4 oz Patient Weight 12/26/22 11:59 Weight 134 lb 4 oz Laboratory Results - last 24 hr 12/25/22 15:24: POC Glucose 105 12/25/22 21:38: POC Glucose 134 H 12/26/22 02:46: POC Glucose 122 H 12/26/22 07:04: WBC 7.2 D, RBC 3.70 L, Hgb 11.9 L, Hct 36.5 L, MCV 98.7 H, MCH 32.3 H, MCHC 32.7, RDW 13.8, Plt Count 302, MPV 10.1, Neut % (Auto) 51.6, Lymph % (Auto) 30.6, [place] % (Auto) 12.1 H, Eos % (Auto) 5.2, Baso % (Auto) 0.4, Neut # (Auto) 3.7, Lymph # (Auto) 2.2, [place] # (Auto) 0.9, Eos # (Auto) 0.4, Baso # (Auto) 0.0 12/26/22 07:04: Sodium 144, Potassium 4.0, Chloride 112 H, Carbon Dioxide 29, Anion Gap 7.0, BUN 18 D, Creatinine 0.40 L, Estimated Creat Clear 173, Estimated GFR 221, Est GFR ( Amer) 267 D, Glucose 130 H, Calcium 8.5 I & O for Labs for Last 24 Hours: Intake & Output 12/23/22 12/24/22 12/25/22 12/26/22 11:59 11:59 11:59 11:59 Intake Total 631 / 631 1992 Output Total Balance 629 / 629 1990 Weight 127 lb 9 oz 134 lb 4 oz Microbiology Reports for the Last 24 Hours: Microbiology 12/25/22 11:05 Sputum - Expectorated Sputum Gram Stain - Final Comment:: Constitutional Constitutional: no acute distress, thin, cachectic and chronically ill appearing Comments: Rosendo is awake, responsive, smiles.? And very verbal, denies pain. *Routine HEENT Exam Head: Present normocephalic Eye: Present EOMI and PERRL ENT: Present mucous membranes moist *Routine Neck Exam Neck: Present supple; Absent lymphadenopathy *Routine Respiratory Exam Respiratory: Present decreased breath sounds and rhonchi *Routine Cardiovascular Exam Cardiovascular: Present RRR *Routine Abdominal Exam Abdominal: Present soft and normoactive bowel sounds; Absent tenderness Comments: G-tube site looks good.? No distention or rebound *Routine Rectal Exam Rectal:: deferred *Routine Genitalia Exam Genitalia:: deferred *Routine Extremities Exam Extremities: Absent cyanosis, clubbing or edema Comments: Thin and cachectic as previously noted *Routine Skin Exam Skin: Present warm; Absent rash *Routine Neurological Exam Neurological: Present alert Comments: Oriented x2, no cranial nerve deficits from baseline.? Significant weakness and neurologic dysfunction in his limbs as previously noted Assessment and Plan *Assessment and plan (1) Aspiration pneumonia:
[2022-12-26 11:14] VITALS: BP 106/65; PULSE 113; RESP 20; TEMP 36.7; O2SAT 100
[2022-12-26 15:14] VITALS: BP 106/66; PULSE 103; RESP 20; TEMP 36.2; O2SAT 95
[2022-12-26 15:21] LABS: POC Glucose,Bedside 90 (70-110)
[2022-12-26 20:00] VITALS: BP 111/67; PULSE 95; RESP 18; TEMP 36.6; O2SAT 96
[2022-12-26 21:09] LABS: POC Glucose,Bedside 109 (70-110)
[2022-12-27] VITALS: BP 108/67; PULSE 99; RESP 18; TEMP 36.8; O2SAT 93
--- NOTE | 2022-12-27 | PC.NURSE ---
Zero residual at 00:00 and TF increased by 10 to 50ml/hr.
[2022-12-27 00:52] LABS: Vancomycin,Trough 7.1 ug/mL (5.0-10.0)
--- NOTE | 2022-12-27 03:51 | PC.NURSE ---
Residual check with zero return. TF increased by 10ml to 60 ml/hr.
[2022-12-27 03:54] LABS: POC Glucose,Bedside 88 (70-110)
[2022-12-27 04:00] VITALS: BP 120/70; PULSE 94; RESP 18; TEMP 36.8; O2SAT 90; BMI 19.7
[2022-12-27 06:22] LABS: Basophils # 0.1 K/mm3 (0-0.2); Basophils % 0.7 % (0.1-2.0); Eosinophils # 0.6 K/mm3 (0.0-0.4); Eosinophils % 8.3 % (0.1-12.0); Hematocrit 36.7 % (42.0-52.0); Hemoglobin 11.8 g/dL (14.1-18.0); Lymphocytes # 2.5 K/mm3 (0.7-4.5); Lymphocytes % 34.7 % (10-50); Mean Corpuscular HGB Conc 32.1 g/dL (31.8-35.4); Mean Corpuscular Hemoglobin 32.1 pg (27.0-31.2); Mean Platelet Volume 9.6 fl (7.4-10.4); Monocytes # 0.7 K/mm3 (0.1-1.0); Monocytes % 9.6 % (1.7-9.3); Neutrophils # 3.4 K/mm3 (1.8-7.8); Neutrophils % 46.7 % (37.0-80.0); Platelet Count 328 K/mm3 (142-424); Red Blood Count 3.67 M/mm3 (4.60-6.20); White Blood Count 7.2 K/mm3 (4.8-10.8)
[2022-12-27 06:26] LABS: Chloride 108 mmol/L (98-107); Potassium 3.4 mmoL/L (3.5-5.1); Sodium 143 mmol/L (136-145)
[2022-12-27 06:29] LABS: Anion Gap 8.4 mEq/L (5-15); Blood Urea Nitrogen 11 mg/dl (9-20); Carbon Dioxide 30 mmol/L (22.0-30.0); Creatinine Clearance Estimated 172 mL/min (50-200); Estimated Glomerular Filt Rate 221 ml/min (>60); GFR (African American) 267 ML/MIN (>60)
[2022-12-27 06:30] LABS: Calcium 8.2 mg/dl (8.4-10.2); Glucose 110 mg/dl (74-100)
[2022-12-27 07:44] VITALS: BP 111/62; PULSE 92; RESP 17; TEMP 36.7; O2SAT 94
--- NOTE | 2022-12-27 07:59 | EXP.DC.SUM ---
General Admission date:: 12/24/22 Discharge date: 12/27/22 HPI HPI HPI: 57-year-old white male with significant neurologic and multiple medical problems from history of sepsis/septic shock with stroke disease in the past who has been left with G-tube feedings and is a functional paraplegic. Lives at the [facility] where he has been for several years. Also has a history of dementia-most likely related to a long history of alcoholism in the past. He was noted to have some coffee-ground emesis yesterday and sent to the emergency department. Found to be febrile, slight leukocytosis, admitted to hospital for further evaluation for the coffee-ground emesis and his history of recurrent aspiration pneumonia episodes. Hospital Course Hospital Course Hospital Course: Patient was admitted as noted, placed on broad-spectrum antibiotics for MRSA and Pseudomonas coverage. He had no further evidence of GI bleeding. No coffee-ground emesis and no melena or bloody stools. His hemoglobin did go down, probably from the hydration effect, stabilized around 11 g which has been his normal baseline in the past. Electrolytes and kidney function were stable. Sputum cultures and blood cultures were negative. Patient throughout his admission was actually more alert than his baseline has been in past hospitalizations. This morning he was doing well, we will be transferred back to [facility]. His orders will remain the same although we will do Augmentin 500 mg twice daily per G-tube for 7 days for coverage of possible aspiration issues. I will follow him up on long-term rounds in the Tuesday. Exam Data for Last 24 hours Vital signs and Labs for Last 24 Hours: Temp Pulse Resp BP Pulse Ox 98.0 F 92 H 17 111/62 94 L 12/27/22 07:44 12/27/22 07:44 12/27/22 07:44 12/27/22 07:44 12/27/22 07:44 Laboratory Results - last 24 hr 12/26/22 15:11: POC Glucose 90 12/26/22 21:03: POC Glucose 109 12/27/22 00:30: Vancomycin Trough 7.1 12/27/22 03:45: POC Glucose 88 12/27/22 06:03: WBC 7.2, RBC 3.67 L, Hgb 11.8 L, Hct 36.7 L, MCV 100.0 H, MCH 32.1 H, MCHC 32.1, RDW 14.0, Plt Count 328, MPV 9.6, Neut % (Auto) 46.7, Lymph % (Auto) 34.7, [place] % (Auto) 9.6 H, Eos % (Auto) 8.3, Baso % (Auto) 0.7, Neut # (Auto) 3.4, Lymph # (Auto) 2.5, [place] # (Auto) 0.7, Eos # (Auto) 0.6 H, Baso # (Auto) 0.1 12/27/22 06:03: Sodium 143, Potassium 3.4 L, Chloride 108 H, Carbon Dioxide 30, Anion Gap 8.4, BUN 11 D, Creatinine 0.40 L, Estimated Creat Clear 172, Estimated GFR 221, Est GFR ( Amer) 267, Glucose 110 H, Calcium 8.2 L I & O for Last 24 hours: Intake & Output 12/24/22 12/25/22 12/26/22 12/27/22 11:59 11:59 11:59 11:59 Intake Total 631 / 631 1992 1771 / 1771 Output Total / 2 / 0 / 0 Balance 629 / 629 1990 1771 / 1771 Weight 127 lb 9 oz 134 lb 4 oz 133 lb 6 oz Microbiology Reports for the Last 24 Hours: Microbiology 12/25/22 11:05 Sputum - Expectorated Sputum Gram Stain - Final 12/25/22 11:05 Sputum - Expectorated Sputum Sputum Culture - Preliminary Constitutional Constitutional: no acute distress *Routine HEENT Exam Head: Present normocephalic Eye: Present EOMI and PERRL ENT: Present mucous membranes moist *Routine Neck Exam Neck: Present supple; Absent lymphadenopathy *Routine Respiratory Exam Respiratory: Present CTA bilaterally *Routine Cardiovascular Exam Cardiovascular: Present RRR *Routine Abdominal Exam Abdominal: Present soft and normoactive bowel sounds; Absent tenderness Comments: G-tube site in place. Nontender *Routine Extremities Exam Extremities: Absent cyanosis, clubbing or edema Comments: Atrophy and weakness as previously noted *Routine Skin Exam Skin: Present warm; Absent rash *Routine Neurological Exam Neurological: Present alert Comments: Previously noted memory loss with global weakness. No changes from baseline Results Data Complete
--- NOTE | 2022-12-27 08:03 | SW/DCPLANNER ---
This patient currently resides at [facility] level of care. I have faxed updated patient information to Luzmaria. The plan for this patient is to return to [facility] today.
[2022-12-27 08:20] VITALS: BMI 19.7
--- NOTE | 2022-12-27 08:25 | DIET.NUTRFU ---
Patient tolerating TF with zero residuals noted throughout night. Currently receiving 60ml/hr with goal rate at 70ml/hr. Continues to receiving IVF. Plans to return to [facility] today. No discharge needs at this time. Will continue previous reigmen at [facility] upon return
--- NOTE | 2022-12-27 08:41 | EXP.PHA.CONS ---
Pharmacy Consult Date: 12/27/22 Time: 08:44 Referring provider: DR. DOHERTY Reason for Consult:: VANCOMYCIN LEVEL Allergies Allergy/AdvReac Type Severity Reaction Status Date / Time No Known Allergies Allergy Verified 06/09/22 11:00 Home Medications Medication Instructions Recorded Confirmed Type acetaminophen 500 mg tablet 500 mg feeding tube Q4H PRN Pain 12/24/22 12/24/22 History aspirin 81 mg chewable tablet 81 mg feeding tube DAILY Heart 12/24/22 12/24/22 History health cholecalciferol (vitamin D3) 100 100 mcg feeding tube DAILY 12/24/22 12/24/22 History mcg (4,000 unit) tablet Supplement doxazosin 1 mg tablet 1 mg feeding tube DAILY High blood 12/24/22 12/24/22 History pressure folic acid 0.8 mg capsule 0.8 mg feeding tube DAILY 12/24/22 12/24/22 History Supplement lorazepam 0.5 mg tablet 0.25 mg feeding tube HS Anxiety 12/24/22 12/24/22 History metoclopramide HCl 5 mg tablet 5 mg feeding tube BID GERD 12/24/22 12/24/22 History omeprazole 20 mg capsule,delayed 20 mg feeding tube DAILY GERD 12/24/22 12/24/22 History release potassium chloride 20 mEq/15 mL 20 meq feeding tube BID Supplement 12/24/22 12/24/22 History oral liquid quetiapine 100 mg tablet 100 mg feeding tube 0900,1700 12/24/22 12/25/22 History Dementia quetiapine 200 mg tablet 200 mg feeding tube HS Dementia 12/24/22 12/24/22 History thiamine HCl (vitamin B1) 100 mg 100 mg feeding tube DAILY 12/24/22 12/24/22 History tablet Supplement valproic acid (as sodium salt) 250 250 mg feeding tube BID Seizure 12/24/22 12/24/22 History mg/5 mL oral solution Lactobacillus acidophilus 1 1,000 mmu cells PO DAILY PROBIOTIC 12/25/22 12/25/22 History billion cell capsule dextromethorphan-guaifenesin 5 20 ml PO Q6HP PRN COUGH/CONGESTION 12/25/22 12/25/22 History mg-100 mg/5 mL oral liquid (Robitussin Honey Max DM) melatonin 3 mg tablet 3 mg PO HS Insomnia 12/25/22 12/25/22 History nystatin-triamcinolone 100,000 1 applic topical BIDP PRN YEAST 12/25/22 12/25/22 History unit/g-0.1 % topical cream LIKE PLACES ON FACE EACH SHIFT polyethylene glycol 3350 17 17 g PO DAILY CONSTIPATION 12/25/22 12/25/22 History gram/dose oral powder (Miralax) simethicone 80 mg chewable tablet 80 mg PO Q6HP PRN GAS/BLOATING 12/25/22 12/25/22 History amoxicillin 500 mg-potassium 1 tab PO Q12H #14 tabs 12/27/22 Rx clavulanate 125 mg tablet (Augmentin) New Prescriptions to Start Prescriptions: amoxicillin-pot clavulanate [Augmentin] Shiv Doherty Height: 1.75 m Weight: 60.49 kg Laboratory Results:: Laboratory Results - last 24 hr 12/26/22 15:11: POC Glucose 90 12/26/22 21:03: POC Glucose 109 12/27/22 00:30: Vancomycin Trough 7.1 12/27/22 03:45: POC Glucose 88 12/27/22 06:03: WBC 7.2, RBC 3.67 L, Hgb 11.8 L, Hct 36.7 L, MCV 100.0 H, MCH 32.1 H, MCHC 32.1, RDW 14.0, Plt Count 328, MPV 9.6, Neut % (Auto) 46.7, Lymph % (Auto) 34.7, [place] % (Auto) 9.6 H, Eos % (Auto) 8.3, Baso % (Auto) 0.7, Neut # (Auto) 3.4, Lymph # (Auto) 2.5, [place] # (Auto) 0.7, Eos # (Auto) 0.6 H, Baso # (Auto) 0.1 12/27/22 06:03: Sodium 143, Potassium 3.4 L, Chloride 108 H, Carbon Dioxide 30, Anion Gap 8.4, BUN 11 D, Creatinine 0.40 L, Estimated Creat Clear 172, Estimated GFR 221, Est GFR ( Amer) 267, Glucose 110 H, Calcium 8.2 L Medical History: Medical History (Updated 12/25/22 @ 12:49 by Shiv Doherty MD) Gastrostomy tube in place Assessment and Plan Assessment and plan all Dx Assessment and Plan for all problems:: PATIENT'S VANCOMYCIN TROUGH LEVEL WAS 7.1 MCG/ML OVERNIGHT. PATIENT BEING DISCHARGED TODAY.
--- NOTE | 2022-12-27 09:20 | PC.NURSE ---
G tube residual zero. Tube feeding increased to 70 ml/hr.
[2022-12-27 09:26] LABS: POC Glucose,Bedside 104 (70-110)
--- NOTE | 2022-12-28 13:18 | CARE MANAGER ---
Contacted Luzmaria at [facility] and she states patient is doing well since being discharged yesterday. PETER Luong
== END 2022-12-27 10:45 ==
LOC: ER 19:39 → 2ND 19:59
PROVIDERS: Admitting Provider Family Medicine; Emergency Provider Emergency Medicine; PCP Internal Medicine Adolescent Medicine; Visit Provider Internal Medicine Adolescent Medicine
DX: J69.0 Pneumonitis due to inhalation of food and vomit (principal); Z68.1 Body mass index [BMI] 19.9 or less, adult; E43 Unspecified severe protein-calorie malnutrition; K92.0 Hematemesis; F10.96 Alcohol use, unspecified with alcohol-induced persisting amnestic disorder; G93.49 Other encephalopathy; Z79.899 Other long term (current) drug therapy; Z93.1 Gastrostomy status; Z74.01 Bed confinement status; I69.359 Hemiplegia and hemiparesis following cerebral infarction affecting unspecified side; Z87.820 Personal history of traumatic brain injury; Z20.822 Contact with and (suspected) exposure to COVID-19
CPT/HCPCS: G0378; 36415; 74177; 80048; 80053; 80202; 82272; 82962; 83690; 85014; 85018; 85025; 85610; 85730; 86850; 87070; 87077; 87186; 87205; 99285; C9803; G0328; J0692; J2405; J2543; J3370; Q9967; U0003; U0005

== ENCOUNTER 2023-01-23 00:53 | Observation (INO) | payer MEDICARE, MEDICAID, SELFPAY ==
[2023-01-23] VITALS (12 sets, daily range): BP systolic 78–152; BP diastolic 58–114; PULSE 86–121; RESP 16–20; TEMP 36.8–37.7; O2SAT 94–99; BMI 19.8; BMI 14.9; BMI 17.7
--- NOTE | 2023-01-23 01:02 | ECG_ITS ---
APPROVED REPORT Exam: Resting ECG HR:117 bpm ECG Measurements Heart Rate 117 AXES LA 162 P 74 QRSd 92 QRS 174 QT 336 T 72 QTc 405 Conclusion SINUS TACHYCARDIA PATTERN CONSISTENT WITH PULMONARY DISEASE POSSIBLE RIGHT VENTRICULAR HYPERTROPHY [SOME/ALL OF: PROMINENT R IN V1, LATE TRANSITION, RAD, PRETTY, SSS] ABNORMAL ECG UNCONFIRMED REPORT Electronically signed by : Shiv Hu MD 01/23/2023 07:31:30
--- NOTE | 2023-01-23 01:02 | XR_ITS ---
PROCEDURE INFORMATION: Exam: XR Chest Exam date and time: 01/23/2023 1:17 AM Age: 57 years old Clinical indication: Other: Rule out gi bleed TECHNIQUE: Imaging protocol: Radiologic exam of the chest. Views: 1 view. Total images: 1 COMPARISON: CR XR CHEST PORTABLE 07/26/2022 11:50 PM FINDINGS: Lungs: Pulmonary emphysema. No acute infiltrate, airspace consolidation, or vascular congestion. Pleural spaces: Unremarkable. No pleural effusion. No pneumothorax. Heart/Mediastinum: Unremarkable. No cardiomegaly. No mediastinal widening or hilar enlargement. Bones/joints: Multiple remote left rib fractures. Other findings: Slight rotation to the right. Lordotic positioning. IMPRESSION: 1. No radiographically acute cardiopulmonary process. 2. Chronic findings.
--- NOTE | 2023-01-23 01:04 | CT_ITS ---
PROCEDURE INFORMATION: Exam: CT Abdomen And Pelvis With Contrast Exam date and time: 01/23/2023 2:45 AM Age: 57 years old Clinical indication: Other: Possible gi bleed; Additional info: Possible gi bleed, coffee ground emesis TECHNIQUE: Imaging protocol: Computed tomography of the abdomen and pelvis with contrast. Total images: 294 Radiation optimization: All CT scans at this facility use at least one of these dose optimization techniques: automated exposure control; mA and/or kV adjustment per patient size (includes targeted exams where dose is matched to clinical indication); or iterative reconstruction. Contrast material: ISOVUE; Contrast volume: 75 ml; Contrast route: IV; REPORTING DATA: Count of CT and Cardiac NM exams in prior 12 months: This patient has received [address] and 0 known cardiac nuclear medicine studies in the 12 months prior to the current study. COMPARISON: CT ABDOMEN PELVIS W CON 12/24/2022 6:08 PM FINDINGS: Tubes, catheters and devices: Status post percutaneous gastrostomy tube in appropriate position. Chronically displaced gastrostomy tube within the distal ileum, unchanged. Lungs: Small volume peripheral consolidation right lower lobe, improved from prior CT. Right lower lobe bronchiectasis. Minor left basilar atelectasis or scarring. Heart: Normal heart size. Mediastinal space: Distal esophageal wall thickening concerning for esophagitis or neoplasm. Liver: Slight decreased liver attenuation from phase of contrast versus steatosis. Normal liver size and contour. No mass. Gallbladder and bile ducts: Normal. No calcified stones. No ductal dilation. Pancreas: Normal. No ductal dilation. Spleen: Normal. No splenomegaly. Adrenal glands: Normal. No mass. Kidneys and ureters: No nephrolithiasis or hydronephrosis. Small right renal cyst. No perinephric fluid. Stomach and bowel: Hyperenhancement of the gastric mucosa at the GE junction. Unremarkable duodenum. No ileus or bowel obstruction. Small bowel appears within normal limits. Scattered air-fluid levels throughout nondilated colon may reflect diarrheal state. No convincing evidence for acute colonic inflammatory process. Mild rectal wall thickening. Appendix: Nonvisualized appendix. Intraperitoneal space: Unremarkable. No free air. No significant fluid collection. Vasculature: Moderately atherosclerotic abdominal aorta and iliac arteries. Moderate to severe chronic stenosis proximal bilateral common iliac arteries. Lymph nodes: Unremarkable. No enlarged lymph nodes. Urinary bladder: Nonspecific mild bladder wall thickening. Possible intraluminal bladder mass right posterolateral bladder wall. Reproductive: Nonenlarged prostate with dystrophic calcification. Bones/joints: No acute osseous abnormality. Diffuse osseous demineralization. Mild degenerative change of bilateral hips and SI joints. Chronic bilateral femoral head AVN. Mild degenerative spondylosis lower lumbar spine. Soft tissues: The right testicle is retracted into the inguinal canal. IMPRESSION: 1. Hyperenhancement of the mucosa at the gastroesophageal junction with distal esophageal wall thickening concerning for acute esophagitis. Cannot exclude neoplasm. Recommend follow-up nonemergent endoscopy. 2. Improved right lower lobe consolidation. 3. Liquid stool and scattered air-fluid levels throughout the colon implying diarrheal state. 4. Rectal wall thickening concerning for proctitis. 5. Chronically displaced percutaneous gastrostomy tube, located within a loop of distal ileum, unchanged. 6. Additional chronic and incidental findings. COMMENTS: Consistent with the
--- NOTE | 2023-01-23 01:40 | HMH.EDGIBL ---
Discharge Plan Disposition Patient Disposition: Admitted as Observation Chief Complaint: GI Bleed Clinical Impressions Clinical Impression: Esophagitis, Acute upper GI bleed Discharge ED Provider: Eli (ED)Aldo GI Bleed HPI General Chief complaint: GI Bleed Stated complaint: GI Bleed Time Seen by Provider: 01/23/23 01:41 Mode of Arrival: EMS Source of Information: Patient, EMS and Medical Record Limitations: Altered Mental Status Description of Symptoms (Recalled from ER Triage Doc. by RN): EMS reports pt was sent for a GI bleed evaluation. pt denies n/v/d. pt has a LLQ Gtube pt is altered at baseline. History of Present Illness HPI Narrative: pt with g tube and reported vomited blood at [facility] - pt reports no pain and - denied vomiting blood - MD complaint: gross hematemesis Onset (ago): hour(s) Consistency: intermittent Severity: moderate Context: history of GI bleed Associated symptoms: denies other symptoms Related Data Home Medications Medication Instructions Recorded Confirmed acetaminophen 500 mg tablet 500 mg feeding tube Q4H PRN Pain 12/24/22 01/23/23 aspirin 81 mg chewable tablet 81 mg feeding tube DAILY Heart 12/24/22 01/23/23 health cholecalciferol (vitamin D3) 100 100 mcg feeding tube DAILY 12/24/22 01/23/23 mcg (4,000 unit) tablet Supplement doxazosin 1 mg tablet 1 mg feeding tube DAILY High blood 12/24/22 01/23/23 pressure folic acid 0.8 mg capsule 0.8 mg feeding tube DAILY 12/24/22 01/23/23 Supplement lorazepam 0.5 mg tablet 0.25 mg feeding tube HS Anxiety 12/24/22 01/23/23 metoclopramide HCl 5 mg tablet 5 mg feeding tube BID GERD 12/24/22 01/23/23 omeprazole 20 mg capsule,delayed 20 mg feeding tube DAILY GERD 12/24/22 01/23/23 release potassium chloride 20 mEq/15 mL 20 meq feeding tube BID Supplement 12/24/22 01/23/23 oral liquid quetiapine 100 mg tablet 100 mg feeding tube 0900,1700 12/24/22 01/23/23 Dementia quetiapine 200 mg tablet 200 mg feeding tube HS Dementia 12/24/22 01/23/23 thiamine HCl (vitamin B1) 100 mg 100 mg feeding tube DAILY 12/24/22 01/23/23 tablet Supplement valproic acid (as sodium salt) 250 250 mg feeding tube BID Seizure 12/24/22 01/23/23 mg/5 mL oral solution Lactobacillus acidophilus 1 1,000 mmu cells PO DAILY PROBIOTIC 12/25/22 01/23/23 billion cell capsule dextromethorphan-guaifenesin 5 20 ml PO Q6HP PRN COUGH/CONGESTION 12/25/22 01/23/23 mg-100 mg/5 mL oral liquid (Robitussin Honey Max DM) melatonin 3 mg tablet 3 mg PO HS Insomnia 12/25/22 01/23/23 polyethylene glycol 3350 17 17 g PO DAILY CONSTIPATION 12/25/22 01/23/23 gram/dose oral powder (Miralax) simethicone 80 mg chewable tablet 80 mg PO Q6HP PRN GAS/BLOATING 12/25/22 01/23/23 Allergies Allergy/AdvReac Type Severity Reaction Status Date / Time No Known Allergies Allergy Verified 06/09/22 11:00 [facility] Disclaimer: The information contained in this section may have been updated after the patient was seen, as this information can be updated by other users. Medical History (Updated 01/23/23 @ 06:07 by Aldo MARQUEZ)MD) Gastrostomy tube in place Social History Smoking Status: Unknown if ever smoked second hand exposure: No alcohol intake: former current occupational status: disabled Travel in the last 8 weeks: None household members: other housing: group home caffeine: No ROS Obtained: Yes All systems reviewed & no additional complaints except as documented Physical Exam General General appearance: alert Head Head exam: normocephalic Eye Eye exam: Present PERRL and EOMI ENT ENT exam: Present mucous membranes moist Neck Neck exam: Present trachea midline Respiratory Respiratory exam: Absent respiratory distress Cardiovascular Cardiovascular exam: Present regular rate Abdominal Exam Abdominal exam: Present soft and other (has g tube in place ); Absent tendernes
[2023-01-23 01:53] LABS: Basophils % 0.5 % (0.1-2.0); Eosinophils # 0.2 K/mm3 (0.0-0.4); Eosinophils % 2.9 % (0.1-12.0); Hematocrit 49.9 % (42.0-52.0); Hemoglobin 15.7 g/dL (14.1-18.0); Lymphocytes # 1.8 K/mm3 (0.7-4.5); Lymphocytes % 22.3 % (10-50); Mean Corpuscular HGB Conc 31.5 g/dL (31.8-35.4); Mean Corpuscular Hemoglobin 32.2 pg (27.0-31.2); Monocytes # 0.9 K/mm3 (0.1-1.0); Monocytes % 11.4 % (1.7-9.3); Neutrophils # 5.2 K/mm3 (1.8-7.8); Neutrophils % 62.9 % (37.0-80.0); Platelet Count 285 K/mm3 (142-424); Red Blood Count 4.89 M/mm3 (4.60-6.20); White Blood Count 8.3 K/mm3 (4.8-10.8)
[2023-01-23 01:57] LABS: Chloride 99 mmol/L (98-107); Potassium 4.2 mmoL/L (3.5-5.1); Sodium 142 mmol/L (136-145)
[2023-01-23 01:57] LABS: Occult Blood,Stool Negative (Negative)
[2023-01-23 02:00] LABS: Alanine Aminotransferase 24 U/L (12-78); Alkaline Phosphatase 140 U/L (38-126); Amylase 84 U/L (30-110); Anion Gap 14.2 mEq/L (5-15); Aspartate Amino Transferase 44 U/L (17-59); Bilirubin,Total 0.3 mg/dl (0.2-1.3); Blood Urea Nitrogen 21 mg/dl (9-20); Calcium 9.9 mg/dl (8.4-10.2); Carbon Dioxide 33 mmol/L (22.0-30.0); Creatinine Clearance Estimated 95 mL/min (50-200); Estimated Glomerular Filt Rate 138 ml/min (>60); GFR (African American) 167 ML/MIN (>60); Glucose 105 mg/dl (74-100)
[2023-01-23 02:01] LABS: Albumin Level 4.1 g/dl (3.5-5.0); Albumin/Globulin Ratio 0.9 (1.1-1.8); Globulin 4.4 g/dL (1.3-3.2); Lipase 92 U/L (23-300); Total Protein,Serum 8.5 g/dl (6.3-8.2)
[2023-01-23 02:06] LABS: Occult Blood,Gastric Fluid Negative (Negative)
[2023-01-23 02:14] LABS: Troponin I < 0.01 ng/ml (0.00-0.034)
[2023-01-23 05:55] LABS: Coronavirus 19, PCR Not Detected (NotDetected); Influenza A, PCR Not Detected (NotDetected); Influenza B, PCR Not Detected (NotDetected)
--- NOTE | 2023-01-23 06:37 | PC.NURSE ---
PT ARRIVED TO FLOOR AT THIS TIME
--- NOTE | 2023-01-23 08:42 | EXP.HP ---
History of Present Illness *Admission Date: 01/23/23 *Reason for visit:: Coffee-ground emesis *History of present illness: 57-year-old male well-known to our service who is a patient of ours at the [facility] who has had frequent admissions to [facility] for GI issues related to his G-tube feedings and histories of aspiration pneumonia. He has had several episodes where nurses at [facility] describe coffee-ground emesis and then he sent to the [facility] ER. The past couple of times has been admitted he has had no evidence of GI bleed, his hemoglobin has been stable and [facility]. This pattern repeated itself and he was sent to the ER early this morning. ER physician noted some irregularity on CT scan reading of the upper chest/esophagus and admitted him for surgical evaluation for possible EGD. Interestingly the patient who is awake and talkative this morning denies that he has had any count of vomiting and does not report coffee-ground emesis or lower GI bleeding. [facility] Disclaimer: The information contained in this section may have been updated after the patient was seen, as this information can be updated by other users. Medical History (Updated 01/23/23 @ 06:07 by Aldo MARQUEZ)MD) Gastrostomy tube in place Social History Smoking Status: Unknown if ever smoked second hand exposure: No alcohol intake: former current occupational status: disabled Travel in the last 8 weeks: None household members: other housing: [facility] caffeine: No Review of Systems Review of Systems Review of systems:: pertinent systems reviewed and negative unless documented below Meds Home Medications and Allergies Home Medications Medication Instructions Recorded Confirmed Type acetaminophen 500 mg tablet 500 mg feeding tube Q4H PRN Pain 12/24/22 01/23/23 History aspirin 81 mg chewable tablet 81 mg feeding tube DAILY Heart 12/24/22 01/23/23 History health cholecalciferol (vitamin D3) 100 100 mcg feeding tube DAILY 12/24/22 01/23/23 History mcg (4,000 unit) tablet Supplement doxazosin 1 mg tablet 1 mg feeding tube DAILY High blood 12/24/22 01/23/23 History pressure folic acid 0.8 mg capsule 0.8 mg feeding tube DAILY 12/24/22 01/23/23 History Supplement lorazepam 0.5 mg tablet 0.25 mg feeding tube HS Anxiety 12/24/22 01/23/23 History metoclopramide HCl 5 mg tablet 5 mg feeding tube BID GERD 12/24/22 01/23/23 History omeprazole 20 mg capsule,delayed 20 mg feeding tube DAILY GERD 12/24/22 01/23/23 History release potassium chloride 20 mEq/15 mL 20 meq feeding tube BID Supplement 12/24/22 01/23/23 History oral liquid quetiapine 100 mg tablet 100 mg feeding tube 0900,1700 12/24/22 01/23/23 History Dementia quetiapine 200 mg tablet 200 mg feeding tube HS Dementia 12/24/22 01/23/23 History thiamine HCl (vitamin B1) 100 mg 100 mg feeding tube DAILY 12/24/22 01/23/23 History tablet Supplement valproic acid (as sodium salt) 250 250 mg feeding tube BID Seizure 12/24/22 01/23/23 History mg/5 mL oral solution Lactobacillus acidophilus 1 1,000 mmu cells PO DAILY PROBIOTIC 12/25/22 01/23/23 History billion cell capsule dextromethorphan-guaifenesin 5 20 ml PO Q6HP PRN COUGH/CONGESTION 12/25/22 01/23/23 History mg-100 mg/5 mL oral liquid (Robitussin Honey Max DM) melatonin 3 mg tablet 3 mg PO HS Insomnia 12/25/22 01/23/23 History polyethylene glycol 3350 17 17 g PO DAILY CONSTIPATION 12/25/22 01/23/23 History gram/dose oral powder (Miralax) simethicone 80 mg chewable tablet 80 mg PO Q6HP PRN GAS/BLOATING 12/25/22 01/23/23 History New Prescriptions to Start Prescriptions: Allergies Allergy/AdvReac Type Severity Reaction Status Date / Time No Known Allergies Allergy Verified 06/09/22 11:00 Exam
--- NOTE | 2023-01-23 09:27 | EXP.SURG.CON ---
History of Present Illness *Admission Date: 01/23/23 *Reason for visit:: Possible GI bleeding *History of present illness: Patient is a 57-year-old male who is a resident of [facility] with history of several neurologic and chronic medical problems with history of prior sepsis and septic shock with stroke disease and dementia attributed to prior significant alcoholism in the past. 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 He has had some issues with displacement of PEG tube in the past. Of note, imaging greater than 2 years ago revealed an old PEG tube within the distal ileum. There has been no evidence of any obstruction from this. Previous surgical supply assistant recommended watchful waiting. He has had some episodes described by [facility] staff of possible coffee-ground emesis and has been evaluated at [facility] several times for this and has had no evidence of GI bleeding with stable hemoglobin. Once again this pattern repeated itself and the patient was seen in the emergency department early this morning. He underwent CT scan which revealed a plethora of findings including hyperenhancement of the mucosa at the gastroesophageal junction with distal esophageal wall thickening concerning for acute esophagitis. Cannot exclude neoplasm. Recommend follow-up nonemergent endoscopy. Also findings of rectal wall thickening concerning for proctitis. Chronically displaced percutaneous gastrostomy tube, located within a loop of the distal ileum, unchanged. [facility] Disclaimer: The information contained in this section may have been updated after the patient was seen, as this information can be updated by other users. Medical History (Updated 01/23/23 @ 06:07 by Aldo Benitez MD (ED)) Gastrostomy tube in place Social History Smoking Status: Unknown if ever smoked second hand exposure: No alcohol intake: former current occupational status: disabled Travel in the last 8 weeks: None household members: other housing: prison caffeine: No Meds Home Medications and Allergies Home Medications Medication Instructions Recorded Confirmed Type acetaminophen 500 mg tablet 500 mg feeding tube Q4H PRN Pain 12/24/22 01/23/23 History aspirin 81 mg chewable tablet 81 mg feeding tube DAILY Heart 12/24/22 01/23/23 History health cholecalciferol (vitamin D3) 100 100 mcg feeding tube DAILY 12/24/22 01/23/23 History mcg (4,000 unit) tablet Supplement doxazosin 1 mg tablet 1 mg feeding tube DAILY High blood 12/24/22 01/23/23 History pressure folic acid 0.8 mg capsule 0.8 mg feeding tube DAILY 12/24/22 01/23/23 History Supplement lorazepam 0.5 mg tablet 0.25 mg feeding tube HS Anxiety 12/24/22 01/23/23 History metoclopramide HCl 5 mg tablet 5 mg feeding tube BID GERD 12/24/22 01/23/23 History omeprazole 20 mg capsule,delayed 20 mg feeding tube DAILY GERD 12/24/22 01/23/23 History release potassium chloride 20 mEq/15 mL 20 meq feeding tube BID Supplement 12/24/22 01/23/23 History oral liquid quetiapine 100 mg tablet 100 mg feeding tube 0900,1700 12/24/22 01/23/23 History Dementia quetiapine 200 mg tablet 200 mg feeding tube HS Dementia 12/24/22 01/23/23 History thiamine HCl (vitamin B1) 100 mg 100 mg feeding tube DAILY 12/24/22 01/23/23 History tablet Supplement valproic acid (as sodium salt) 250 250 mg feeding tube BID Seizure 12/24/22 01/23/23 History mg/5 mL oral solution Lactobacillus acidophilus 1 1,000 mmu cells PO DAILY PROBIOTIC 12/25/22 01/23/23 History billion cell capsule dextromethorphan-guaifenesin 5 20 ml PO Q6HP PRN COUGH/CONGESTION 12/25/22 01/23/23 History mg-100 mg/5 mL oral liquid (Robitussin Honey Max DM) melatonin 3 mg tablet 3 mg PO HS Insomnia 12/25/22 01/23/23 History polyethylene glycol 3350 17 17 g PO DAILY CONSTIPATION 12/25/22
--- NOTE | 2023-01-23 18:13 | PC.NURSE ---
contacted [facility] regarding getting POA paperwork to obtain surgery consent. awaiting fax
--- NOTE | 2023-01-23 22:29 | PC.NURSE ---
Spoke with transit department clerk at the desk and she says she called [facility] to get POA papers so we can get consent for procedure in the am.
[2023-01-24] VITALS (16 sets, daily range): BP systolic 109–131; BP diastolic 60–78; PULSE 72–99; RESP 14–18; TEMP 34.8–37.1; O2SAT 92–98; BMI 17.9
--- NOTE | 2023-01-24 02:40 | PC.NURSE ---
Consent obtained over the phone for egd and colonoscopy from Aldo Fountain, he is the patient's POA.
[2023-01-24 07:10] LABS: Basophils % 0.4 % (0.1-2.0); Eosinophils # 0.3 K/mm3 (0.0-0.4); Eosinophils % 3.8 % (0.1-12.0); Hematocrit 36.2 % (42.0-52.0); Hemoglobin 11.7 g/dL (14.1-18.0); Lymphocytes # 3.1 K/mm3 (0.7-4.5); Lymphocytes % 35.4 % (10-50); Mean Corpuscular HGB Conc 32.3 g/dL (31.8-35.4); Mean Corpuscular Hemoglobin 32.1 pg (27.0-31.2); Mean Corpuscular Volume 99.4 fl (80-94); Mean Platelet Volume 10.3 fl (7.4-10.4); Monocytes # 0.9 K/mm3 (0.1-1.0); Monocytes % 10.4 % (1.7-9.3); Neutrophils # 4.3 K/mm3 (1.8-7.8); Neutrophils % 49.9 % (37.0-80.0); Platelet Count 246 K/mm3 (142-424); Red Blood Count 3.64 M/mm3 (4.60-6.20); Red Cell Distribution Width 13.9 % (11.5-17.5); White Blood Count 8.6 K/mm3 (4.8-10.8)
[2023-01-24 07:11] LABS: Anion Gap 11.5 mEq/L (5-15); Blood Urea Nitrogen 9 mg/dl (9-20); Calcium 8.1 mg/dl (8.4-10.2); Carbon Dioxide 25 mmol/L (22.0-30.0); Chloride 107 mmol/L (98-107); Creatinine Clearance Estimated 171 mL/min (50-200); Estimated Glomerular Filt Rate 221 ml/min (>60); GFR (African American) 267 ML/MIN (>60); Glucose 84 mg/dl (74-100); Potassium 3.5 mmoL/L (3.5-5.1); Sodium 140 mmol/L (136-145)
--- NOTE | 2023-01-24 07:44 | P.CONPHA_ITS ---
Pharmacy Intervention Comments: MEDICATION RECONCILIATION COMPLETED ON PATIENT USING MAR FROM [facility] AND EXTERNAL FILL HISTORY FROM PHARMACY. -JOB BUSTAMANTE, DAHIANAD
--- NOTE | 2023-01-24 07:44 | HMH.PHAINT1 ---
Pharmacy Intervention Comments: MEDICATION RECONCILIATION COMPLETED ON PATIENT USING MAR FROM [facility] AND EXTERNAL FILL HISTORY FROM PHARMACY. -JOB BUSTAMANTE, DAHIANAD
--- NOTE | 2023-01-24 07:55 | SW/DCPLANNER ---
Addendum entered by Elidia Linares 01/25/23 07:34: I have updated Luzmaria taylor/ YARELIS: patient will return today. Original Note: This patient currently resides at [facility]. Updated patient information will be faxed to Luzmaria SANTOYO this AM. Discharge date is unknown at this time.
--- NOTE | 2023-01-24 08:47 | EXP.ACUTE.PN ---
Subjective *Date: 01/24/23 *Time: 08:47 Interval history: Overall no problems overnight, tube feeds were held with impending EGD and colonoscopy today. No evidence of upper GI bleeding noted per nurses or discharge from his G-tube. Medical Exam Vital signs and Labs for Last 24 Hours: Vital Signs Temp Pulse Resp BP Pulse Ox 01/24/23 08:00 97.8 F 95 H 18 125/71 94 L 01/24/23 04:00 98.2 F 99 H 18 117/61 94 L 01/24/23 00:00 98.0 F 97 H 18 117/64 96 01/23/23 20:00 98.3 F 99 H 18 110/63 97 01/23/23 20:00 97 01/23/23 14:42 98.7 F 96 H 16 99/63 L 95 01/23/23 10:52 99.9 F H 105 H 16 78/58 L 95 Intake and Output 01/23/23 01/24/23 01/24/23 19:59 03:59 11:59 Intake Total 0 / 4680 3480 / 4680 1200 / 4680 Output Total 0 / 0 0 / 0 0 / 0 Balance 0 / 4680 3480 / 4680 1200 / 4680 Intake: Intake, Oral Amount 0 / 0 Intake, Tube Feeding Amount 2880 / 4080 1200 / 4080 Intake, Total IV Amount 600 / 600 0.9 % Sodium Chloride 1000ML 1, 600 / 600 000 ml @ 75 mls/hr IV .[id number] [facility] Rx#:[id number] Output: Output, Urine Amount 0 / 0 0 / 0 0 / 0 Other: Number of Unmeasured Voids 1 0 1 Number of Bowel Movements 1 1 Weight 132 lb 4 oz Patient Weight 01/24/23 11:59 Weight 132 lb 4 oz Laboratory Results - last 24 hr 01/24/23 06:37: WBC 8.6, RBC 3.64 L D, Hgb 11.7 L, Hct 36.2 L, MCV 99.4 H, MCH 32.1 H, MCHC 32.3, RDW 13.9, Plt Count 246, MPV 10.3, Neut % (Auto) 49.9, Lymph % (Auto) 35.4, Cameron % (Auto) 10.4 H, Eos % (Auto) 3.8, Baso % (Auto) 0.4, Neut # (Auto) 4.3, Lymph # (Auto) 3.1, Cameron # (Auto) 0.9, Eos # (Auto) 0.3, Baso # (Auto) 0.0 01/24/23 06:37: Sodium 140, Potassium 3.5, Chloride 107, Carbon Dioxide 25, Anion Gap 11.5, BUN 9 D, Creatinine 0.40 L D, Estimated Creat Clear 171, Estimated GFR 221, Est GFR ( Amer) 267 D, Glucose 84, Calcium 8.1 L I & O for Labs for Last 24 Hours: Intake & Output 01/21/23 01/22/23 01/23/23 01/24/23 11:59 11:59 11:59 11:59 Intake Total 0 / 0 4680 / 4680 Output Total 0 / 0 0 / 0 Balance 0 / 0 4680 / 4680 Weight 131 lb 2 oz 132 lb 4 oz Microbiology Reports for the Last 24 Hours: Microbiology 12/25/22 11:05 Sputum - Expectorated Sputum Gram Stain - Final Comment:: Constitutional Constitutional: no acute distress, thin, cachectic and chronically ill appearing Comments: Rosendo is awake, responsive, smiles.? And very verbal, denies pain. *Routine HEENT Exam Head: Present normocephalic Eye: Present EOMI and PERRL ENT: Present mucous membranes moist *Routine Neck Exam Neck: Present supple; Absent lymphadenopathy *Routine Respiratory Exam Respiratory: Present decreased breath sounds and rhonchi *Routine Cardiovascular Exam Cardiovascular: Present RRR *Routine Abdominal Exam Abdominal: Present soft and normoactive bowel sounds; Absent tenderness Comments: G-tube site looks good.? No distention or rebound *Routine Rectal Exam Rectal:: deferred *Routine Genitalia Exam Genitalia:: deferred *Routine Extremities Exam Extremities: Absent cyanosis, clubbing or edema Comments: Thin and cachectic as previously noted *Routine Skin Exam Skin: Present warm; Absent rash *Routine Neurological Exam Neurological: Present alert Comments: Oriented x2, no cranial nerve deficits from baseline.? Significant weakness and neurologic dysfunction in his limbs as previously noted Assessment and Plan *Assessment and plan (1) Esophagitis: Status: Acute Category: Medical Code(s): K20.90 - Esophagitis, unspecified without bleeding (2) Gastrojejunostomy tube status: Status: Chronic Category: Medical Code(s): Z93.4 - Other artificial openings of gastrointestinal tract status Plan No evidence of any acute GI bleeding at this time. However, given the findings on CT imaging will plan for upper endoscopy tomorrow morning. With the portion of retained PEG tube at the
--- NOTE | 2023-01-24 11:14 | P.PN_ITS ---
[facility] Disclaimer: The information contained in this section may have been updated after the patient was seen, as this information can be updated by other users. Medical History (Updated 01/23/23 @ 06:07 by Aldo Benitez MD (ED)) Gastrostomy tube in place Social History Smoking Status: Unknown if ever smoked second hand exposure: No alcohol intake: former substance use type: denies use current occupational status: disabled Travel in the last 8 weeks: None household members: other housing: senior care caffeine: No [facility] Anesthesia Checklist Patient Identification Patient Identification: Verbal (Name & ) Structural Data Admitted From: Inpatient Planned Operative Procedure/s: egd,colonoscopy Consent for Planned Operative Procedure(s) Verified: Yes Airway Assessment C-Spine Mobility Assessed: Yes TMJ Mobility Assessed: Yes Dentition: Edentulous Neurological Assessment Level of Consciousness: Awake, Alert and Appropriate Anesthesia Plan Anesthesia Risk discussed: Yes Anesthesia Plan: Verified ASA Class: III Anesthesia Type: MAC
--- NOTE | 2023-01-24 11:18 | HMH.SCOPE ---
Procedure: Date: 01/24/23 Patient Date of :: 1965 Procedure Performed:: Esophagogastroduodenoscopy with biopsies Colonoscopy to terminal ileum with retrieval of intestinal foreign body and polypectomy using cold snare Indications:: Patient is a 57-year-old male who is a resident of [facility] with history of several neurologic and chronic medical problems with history of prior sepsis and septic shock with stroke disease and dementia attributed to prior significant alcoholism in the past.? 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 He has had some issues with displacement of PEG tube in the past.? Of note, imaging greater than 2 years ago revealed an old PEG tube within the distal ileum.? There has been no evidence of any obstruction from this.? Previous surgical physician assistant recommended watchful waiting.? He has had some episodes described by [facility] staff of possible coffee-ground emesis and has been evaluated at [facility] several times for this and has had no evidence of GI bleeding with stable hemoglobin.? Once again this pattern repeated itself and the patient was seen in the emergency department early this morning.? He underwent CT scan which revealed a plethora of findings including hyperenhancement of the mucosa at the gastroesophageal junction with distal esophageal wall thickening concerning for acute esophagitis.? Cannot exclude neoplasm.? Recommend follow-up nonemergent endoscopy. ? Also findings of rectal wall thickening concerning for proctitis.? Chronically displaced percutaneous gastrostomy tube, located within a loop of the distal ileum, unchanged. Plan was made to proceed with upper endoscopy to evaluate for upper GI bleeding as well as an attempt at colonoscopy for possible retrieval of retained foreign body from previous PEG tube. Performing Provider:: Yuri Pacheco MD Referring Provider:: Shiv Hu MD Sedation:: MAC sedation Procedure:: Patient history was obtained and appropriate physical examination was performed. Patient's medications and allergies were reviewed. Informed consent was obtained after explaining the benefits, alternatives, and risks of the procedure including, but not limited to, bleeding, perforation, missed lesions, and adverse reaction to anesthesia medications. Patient was transported to endoscopy procedure room. Patient was connected to monitoring devices. Throughout the procedure the patient's blood pressure, pulse, and oxygen saturations were monitored continuously. Patient identification and planned procedure were verified by the staff. Attention was first turned to upper endoscopy. Olympus endoscope was inserted via the oropharynx. Esophagus was cannulated. Gastroesophageal junction was encountered at 40 cm. There was possibly some minor Dumas's esophagus but no significant pathology at the gastroesophageal junction. Stomach was cannulated and insufflated. Visualization was somewhat difficult due to some retained secretions. Gastrostomy balloon was noted in a good position in the mid body of the stomach. There was no evidence of any recent source of GI bleeding. There was possibly some minor gastropathy. Pylorus was traversed. There was minimal duodenitis, nonerosive. Endoscope was withdrawn into the stomach and gastric mucosal biopsy was obtained. Endoscope was withdrawn into the distal esophagus and biopsy was obtained to evaluate for Dumas's esophagus. Stomach was desufflated and the endoscope was withdrawn. Patient was then positioned in lateral decubitus position for colonoscopy. Digital anorectal exam was performed. There were some external hemorrhoids variable stiffness Olympus colonoscope was inserted and advanced under direct visualization to the cecum. Adequacy of the colonic preparation was noted. The colonoscope was advanced a short distance into the terminal ileum. The colonoscope wa
--- NOTE | 2023-01-24 11:58 | PC.NURSE ---
Pt back from surgery. Temp 94.7. Hypothermic blanket placed.
--- NOTE | 2023-01-24 13:16 | DIET.NUTRFU ---
Addendum entered by Leonela Monaco RD, LD 01/24/23 14:39: once TF starts flush tube with minimal flush while receiving IVF- 50ml V6Z=687ts/day once IVF stopped increase to 100ml L8N=091jb/day. Original Note: RD consulted for low garry scale, patient is NPO with G-tube for 100% nutrition. Patient is from [facility], spoke to ND. He had been receiving isosource 1.5 at 60ml/hr x20ml. He coughs and vomits at times, he is on reglan and protonix to help with tolerance. Admitted with coffee ground emesis with recurrent aspiration PNA. He was just here on 12/25 with same issue. This admit he completed Edg and colonscopy. Will review findings. Will start TF when medically feasible. Osomlite 1.2 at 10ml/hr increase by 10ml Q4H to reach goal rate of 70ml/hr x24 hours providing 1680ml/2016kcal/95gm protein and 1377.6ml formula water. At nursing they ran TF for only 20 hrs providing his gut to rest for 4 hours. Once goal rate is reached or if he is having trouble increasing due to tolerance may need to decrease regimen to 20hours also. Wt stable since last visit at 59kg, BM x2 today. Reglan and protonix already started.
--- NOTE | 2023-01-24 19:20 | PC.NURSE ---
pts iv infiltrated, ref any more iv sticks. notified riley, okay with dc ivs.
[2023-01-25 04:00] VITALS: BP 119/65; PULSE 81; RESP 16; TEMP 37.1; O2SAT 94; BMI 17.6
--- NOTE | 2023-01-25 04:04 | PC.NURSE ---
Melatonin ordered to help patient sleep last night. Pt. should return to [facility] today.
[2023-01-25 06:16] LABS: Basophils % 0.3 % (0.1-2.0); Eosinophils # 0.3 K/mm3 (0.0-0.4); Eosinophils % 3.3 % (0.1-12.0); Hematocrit 37.7 % (42.0-52.0); Hemoglobin 12.4 g/dL (14.1-18.0); Lymphocytes % 38.2 % (10-50); Mean Corpuscular Hemoglobin 32.3 pg (27.0-31.2); Mean Corpuscular Volume 97.8 fl (80-94); Mean Platelet Volume 9.6 fl (7.4-10.4); Monocytes # 0.9 K/mm3 (0.1-1.0); Monocytes % 11.2 % (1.7-9.3); Neutrophils # 3.7 K/mm3 (1.8-7.8); Platelet Count 257 K/mm3 (142-424); Red Blood Count 3.85 M/mm3 (4.60-6.20); Red Cell Distribution Width 13.7 % (11.5-17.5); White Blood Count 7.8 K/mm3 (4.8-10.8)
[2023-01-25 06:29] LABS: Anion Gap 20.3 mEq/L (5-15); Blood Urea Nitrogen 7 mg/dl (9-20); Calcium 8.4 mg/dl (8.4-10.2); Carbon Dioxide 22 mmol/L (22.0-30.0); Chloride 93 mmol/L (98-107); Creatinine Clearance Estimated 168 mL/min (50-200); Estimated Glomerular Filt Rate 221 ml/min (>60); GFR (African American) 267 ML/MIN (>60); Glucose 68 mg/dl (74-100); Potassium 3.3 mmoL/L (3.5-5.1); Sodium 132 mmol/L (136-145)
[2023-01-25 08:00] VITALS: BP 122/68; PULSE 88; RESP 16; TEMP 36.7; O2SAT 96
--- NOTE | 2023-01-25 08:02 | EXP.DC.SUM ---
General Admission date:: 01/23/23 Discharge date: 01/25/23 HPI HPI HPI: Patient is a 57-year-old male who is a resident of [facility] with history of several neurologic and chronic medical problems with history of prior sepsis and septic shock with stroke disease and dementia attributed to prior significant alcoholism in the past. 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 He has had some issues with displacement of PEG tube in the past. Of note, imaging greater than 2 years ago revealed an old PEG tube within the distal ileum. There has been no evidence of any obstruction from this. Previous certified surgical technologist recommended watchful waiting. He has had some episodes described by [facility] staff of possible coffee-ground emesis and has been evaluated at [facility] several times for this and has had no evidence of GI bleeding with stable hemoglobin. Once again this pattern repeated itself and the patient was seen in the emergency department early this morning. He underwent CT scan which revealed a plethora of findings including hyperenhancement of the mucosa at the gastroesophageal junction with distal esophageal wall thickening concerning for acute esophagitis. Cannot exclude neoplasm. Recommend follow-up nonemergent endoscopy. Also findings of rectal wall thickening concerning for proctitis. Chronically displaced percutaneous gastrostomy tube, located within a loop of the distal ileum, unchanged. Hospital Course Hospital Course Hospital Course: Patient was admitted. Surgery consultation was appreciated, took patient for EGD and colonoscopy. They were able to retrieve the fragment of the old G-tube without complications. Otherwise endoscopy results are in chart. Patient did well afterwards. This morning is alert, awake, pleasant. Did complain that had problems sleeping last night. Otherwise is doing well. Labs were unremarkable and doing well. No evidence of GI bleeding. Patient be discharged back to [facility] to resume his normal medications, tube feeds, activities and such like. Exam Data for Last 24 hours Vital signs and Labs for Last 24 Hours: Temp Pulse Resp BP Pulse Ox 98.8 F 81 16 119/65 94 L 01/25/23 04:00 01/25/23 04:00 01/25/23 04:00 01/25/23 04:00 01/25/23 04:00 Laboratory Results - last 24 hr 01/25/23 05:46: WBC 7.8, RBC 3.85 L, Hgb 12.4 L, Hct 37.7 L, MCV 97.8 H, MCH 32.3 H, MCHC 33.0, RDW 13.7, Plt Count 257, MPV 9.6, Neut % (Auto) 47.0, Lymph % (Auto) 38.2, [place] % (Auto) 11.2 H, Eos % (Auto) 3.3, Baso % (Auto) 0.3, Neut # (Auto) 3.7, Lymph # (Auto) 3.0, [place] # (Auto) 0.9, Eos # (Auto) 0.3, Baso # (Auto) 0.0 01/25/23 05:46: Sodium 132 L, Potassium 3.3 L, Chloride 93 L, Carbon Dioxide 22, Anion Gap 20.3 H, BUN 7 L, Creatinine 0.40 L, Estimated Creat Clear 168, Estimated GFR 221, Est GFR ( Amer) 267, Glucose 68 L, Calcium 8.4 I & O for Last 24 hours: Intake & Output 01/22/23 01/23/23 01/24/23 01/25/23 11:59 11:59 11:59 11:59 Intake Total 0 / 0 4680 / 4680 Output Total 0 / 0 0 / 0 400 / 400 Balance 0 / 0 4680 / 4680 -400 / -400 Weight 131 lb 2 oz 132 lb 4 oz 130 lb 1.6 oz Microbiology Reports for the Last 24 Hours: Microbiology 12/25/22 11:05 Sputum - Expectorated Sputum Gram Stain - Final 12/25/22 11:05 Sputum - Expectorated Sputum Sputum Culture - Preliminary Constitutional Constitutional: no acute distress *Routine HEENT Exam Head: Present normocephalic Eye: Present EOMI and PERRL ENT: Present mucous membranes moist *Routine Neck Exam Neck: Present supple; Absent lymphadenopathy *Routine Respiratory Exam Respiratory: Present CTA bilaterally *Routine Cardiovascular Exam Cardiovascular: Present RRR *Routine Abdominal Exam Abdominal: Present soft and normoactive bowel sounds; Absent tenderness Comments: G-tube site in place. Nontender *Routine Extremities Exam Extremities:
--- NOTE | 2023-01-25 09:11 | PC.NURSE ---
called report to dao at [facility]
--- NOTE | 2023-01-25 09:14 | PC.NURSE ---
called next of kin, claudine lara, to inform of transfer back to [facility], no answer
[2023-01-25 12:00] VITALS: BP 119/68; PULSE 88; RESP 16; TEMP 36.6; O2SAT 97
--- NOTE | 2023-01-26 11:33 | CARE MANAGER ---
[facility] and they state patient is doing well since discharge. PETER Luong
== END 2023-01-25 13:09 ==
LOC: ER 05:59 → 2ND 06:07
PROVIDERS: Surgery; Admitting Provider Family Medicine; Emergency Provider Emergency Medicine; PCP Internal Medicine Adolescent Medicine; Visit Provider Internal Medicine Adolescent Medicine
PROC: 0DJ08ZZ Inspection of Upper Intestinal Tract, Via Natural or Artificial Opening Endoscopic (ICD-10-PCS; CPT 43235; principal; 2023-01-24 12:30)
DX: K20.90 Esophagitis, unspecified without bleeding (principal); E43 Unspecified severe protein-calorie malnutrition; Z68.1 Body mass index [BMI] 19.9 or less, adult; R64 Cachexia; F10.96 Alcohol use, unspecified with alcohol-induced persisting amnestic disorder; G93.49 Other encephalopathy; Z93.4 Other artificial openings of gastrointestinal tract status; Z79.899 Other long term (current) drug therapy; Z20.822 Contact with and (suspected) exposure to COVID-19; Z87.01 Personal history of pneumonia (recurrent); D12.5 Benign neoplasm of sigmoid colon; K63.5 Polyp of colon; K57.30 Diverticulosis of large intestine without perforation or abscess without bleeding
CPT/HCPCS: 43239; 45379; 45385; G0378; 36415; 71045; 74177; 80048; 80053; 82150; 82272; 83690; 84484; 85025; 87636; 88305; 88342; 93005; 99285; C1726; C9803; G0328; J2405; J2704; Q9967; U0003; U0005

== ENCOUNTER 2023-04-29 10:50 | Emergency (ER) | payer MEDICARE, MEDICAID, SELFPAY ==
[2023-04-29 10:51] VITALS: BP 115/81; PULSE 93; RESP 18; TEMP 36.6; O2SAT 96
[2023-04-29 11:00] VITALS: BP 125/87; PULSE 95; O2SAT 98
--- NOTE | 2023-04-29 11:16 | PC.NURSE ---
ER MD Alejandra at
--- NOTE | 2023-04-29 11:33 | XR_ITS ---
FINAL REPORT CLINICAL HISTORY: G tube placement confirmation (with contrast) COMPARISON: 10/08/2022 FINDINGS: ABDOMEN SINGLE VIEW / KUB A single view of the abdomen was obtained with a coned down view of the pelvis. Contrast was injected and appears to be confined to bowel. G-tube is present with the tip within the lumen of the stomach in the region of the gastric antrum near the pylorus. IMPRESSION: G-tube as above. Reviewed, Interpreted and Dictated by Federico Harris MD Transcribed by Kelli Rivera Authenticated and [facility]
--- NOTE | 2023-04-29 11:38 | HMH.EDGENADL ---
Discharge Plan Disposition Patient Disposition: Home, Self-Care Prescriptions Prescriptions: No Action doxazosin 1 mg tablet 1 mg feeding tube DAILY quetiapine 200 mg tablet 200 mg feeding tube HS thiamine HCl (vitamin B1) 100 mg Tablet 100 mg feeding tube DAILY quetiapine 100 mg tablet 100 mg feeding tube 0900,1300 acetaminophen 500 mg Tablet 500 mg feeding tube Q4HP PRN (Reason: MILD PAIN/FEVER) potassium chloride 20 mEq/15 mL liquid 20 meq feeding tube BID lorazepam 0.5 mg tablet 0.25 mg feeding tube HS metoclopramide HCl 5 mg tablet 5 mg feeding tube BID valproic acid (as sodium salt) 250 mg/5 mL solution 500 mg feeding tube BID omeprazole 20 mg capsule,delayed release(DR/EC) 20 mg feeding tube DAILY aspirin 81 mg Tablet,Chewable 81 mg feeding tube DAILY folic acid 0.8 mg Capsule 0.8 mg feeding tube DAILY cholecalciferol (vitamin D3) 100 mcg (4,000 unit) Tablet 100 mcg feeding tube DAILY melatonin 3 mg Tablet 3 mg PO HS simethicone 80 mg Tablet,Chewable 80 mg PO Q6HP PRN (Reason: gas/bloating) Lactobacillus acidophilus 1 billion cell Capsule 1,000 mmu cells PO DAILY polyethylene glycol 3350 [Miralax] 17 gram/dose Powder 17 g PO DAILY Referrals Follow up/Referrals: Shiv Hu MD [Primary Care Provider] - See instructions Activity Restrictions/Add. Instructions Additional Instructions/Restrictions: Unfortunately a 12 Mauritanian G-tube had to be replaced as the time that the G-tube was out of the stoma allowed for the stoma to close up significantly. An 18 Mauritanian and a 16 Mauritanian were attempted and we did not have a 14 Mauritanian necessitating a 12 Mauritanian insertion. You need to follow-up with the patient's primary care doctor or surgeon for serial dilations to try to get back to an 18 [place]itanian size. Return with any concerns. Clinical Impressions Clinical Impression: Dislodged gastrostomy tube Discharge ED Provider: Mary Alejandra General Adult HPI General Chief complaint: Recheck/Abnormal Lab/Rx Stated complaint: G tube displaced Time Seen by Provider: 04/29/23 11:12 Mode of Arrival: EMS Limitations: No Limitations Description of Symptoms (Recalled from ER Triage Doc. by RN): PT FROM [facility]. STAFF REPORTS PT PULLED OUT G-TUBE AROUND 0030 LAST NIGHT. History of Present Illness HPI narrative: 58-year-old male who is a resident of [facility] presents today with a gastrostomy tube displacement. He has been here multiple times for this before. He in the past has had an 18 Mauritanian G-tube and is unclear as to when he pulled this out. We believe that it was somewhere around midnight this morning. However he states that it was 2 days ago. He denies any other symptoms at this point Related Data Home Medications Medication Instructions Recorded Confirmed acetaminophen 500 mg tablet 500 mg feeding tube Q4HP PRN MILD 12/24/22 01/23/23 PAIN/FEVER aspirin 81 mg chewable tablet 81 mg feeding tube DAILY Heart 12/24/22 01/23/23 health cholecalciferol (vitamin D3) 100 100 mcg feeding tube DAILY 12/24/22 01/23/23 mcg (4,000 unit) tablet Supplement doxazosin 1 mg tablet 1 mg feeding tube DAILY High blood 12/24/22 01/23/23 pressure folic acid 0.8 mg capsule 0.8 mg feeding tube DAILY 12/24/22 01/23/23 Supplement lorazepam 0.5 mg tablet 0.25 mg feeding tube HS Anxiety 12/24/22 01/23/23 metoclopramide HCl 5 mg tablet 5 mg feeding tube BID Heartburn 12/24/22 01/23/23 omeprazole 20 mg capsule,delayed 20 mg feeding tube DAILY Acid 12/24/22 01/23/23 release reflux potassium chloride 20 mEq/15 mL 20 meq feeding tube BID Supplement 12/24/22 01/23/23 oral liquid quetiapine 100 mg tablet 100 mg feeding tube 0900,1300 12/24/22 01/23/23 Dementia WITH BEHAVIORAL DISTURBANCE quetiapine 200 mg tablet 200 mg feeding tube HS Dementia 12/24/22 01/23/23 WITH BEHAVIORAL D
--- NOTE | 2023-04-29 11:46 | PC.NURSE ---
XR AT BEDSIDE
[2023-04-29 12:01] VITALS: BP 112/80; PULSE 95; O2SAT 92
--- NOTE | 2023-04-29 12:11 | PC.NURSE ---
notified ems of pt needing transport back to [facility].
--- NOTE | 2023-04-29 12:15 | PC.NURSE ---
REPORT GIVEN TO LIANA AT [facility]
[2023-04-29 12:29] VITALS: BP 112/80; PULSE 94; RESP 17; TEMP 36.6; O2SAT 95
== END 2023-04-29 13:00 | disposition home or self-care (01) ==
PROVIDERS: Emergency Provider Student in an Organized Health Care Education/Training Program; PCP Internal Medicine Adolescent Medicine
DX: T85.528A Displacement of other gastrointestinal prosthetic devices, implants and grafts, initial encounter (principal); Z87.891 Personal history of nicotine dependence
CPT/HCPCS: 74018; 99283

== ENCOUNTER 2023-05-13 10:27 | Emergency (ER) | payer MEDICARE, MEDICAID, SELFPAY ==
[2023-05-13 10:17] VITALS: BP 104/62; PULSE 103; RESP 20; TEMP 37.2; O2SAT 98; BMI 20.3
--- NOTE | 2023-05-13 10:29 | HMH.EDGENADL ---
Discharge Plan Disposition Patient Disposition: [facility] Chief Complaint: Recheck/Abnormal Lab/Rx Prescriptions Prescriptions: No Action doxazosin 1 mg tablet 1 mg feeding tube DAILY quetiapine 200 mg tablet 200 mg feeding tube HS thiamine HCl (vitamin B1) 100 mg Tablet 100 mg feeding tube DAILY quetiapine 100 mg tablet 100 mg feeding tube 0900,1300 acetaminophen 500 mg Tablet 500 mg feeding tube Q4HP PRN (Reason: MILD PAIN/FEVER) potassium chloride 20 mEq/15 mL liquid 20 meq feeding tube BID lorazepam 0.5 mg tablet 0.25 mg feeding tube HS metoclopramide HCl 5 mg tablet 5 mg feeding tube BID valproic acid (as sodium salt) 250 mg/5 mL solution 500 mg feeding tube BID omeprazole 20 mg capsule,delayed release(DR/EC) 20 mg feeding tube DAILY aspirin 81 mg Tablet,Chewable 81 mg feeding tube DAILY folic acid 0.8 mg Capsule 0.8 mg feeding tube DAILY cholecalciferol (vitamin D3) 100 mcg (4,000 unit) Tablet 100 mcg feeding tube DAILY melatonin 3 mg Tablet 3 mg PO HS simethicone 80 mg Tablet,Chewable 80 mg PO Q6HP PRN (Reason: gas/bloating) Lactobacillus acidophilus 1 billion cell Capsule 1,000 mmu cells PO DAILY polyethylene glycol 3350 [Miralax] 17 gram/dose Powder 17 g PO DAILY Activity Restrictions/Add. Instructions Additional Instructions/Restrictions: Keep abdominal binder on at all times to prevent removal of gastrostomy tube. You can place 4 x 4's or sterile abdominal pads underneath plastic between plastic and skin to prevent skin breakdown. Call your family doctor to establish care for this visit to the emergency department and schedule follow-up within 48 hours to ensure improvement. If you have any worsening of your condition or any other concerning signs or symptoms, return to the emergency department or your primary care doctor for further evaluation. Clinical Impressions Clinical Impression: Dislodged gastrostomy tube Discharge ED Provider: Connor Renee General Adult HPI General Chief complaint: Recheck/Abnormal Lab/Rx Stated complaint: Pulled out g-tube Time Seen by Provider: 05/13/23 10:29 Mode of Arrival: EMS Source of Information: Patient and EMS Limitations: No Limitations Description of Symptoms (Recalled from ER Triage Doc. by RN): pt to ed c/o dislodged g-tube. nsg home states it came out some time in the night. History of Present Illness HPI narrative: Is a 58-year-old male with history of chronic encephalopathy, seizure disorder, severe malnutrition status post G-tube placement presenting with tube displacement. Patient has follow-up on 05/17 to have G-tube replaced, however sometime overnight, patient had tube displaced left upper abdomen. Patient denies pain, vomiting, redness around the site, tenderness, or any other concerns. Does not remember exactly when it came off. Related Data Home Medications Medication Instructions Recorded Confirmed acetaminophen 500 mg tablet 500 mg feeding tube Q4HP PRN MILD 12/24/22 01/23/23 PAIN/FEVER aspirin 81 mg chewable tablet 81 mg feeding tube DAILY Heart 12/24/22 01/23/23 health cholecalciferol (vitamin D3) 100 100 mcg feeding tube DAILY 12/24/22 01/23/23 mcg (4,000 unit) tablet Supplement doxazosin 1 mg tablet 1 mg feeding tube DAILY High blood 12/24/22 01/23/23 pressure folic acid 0.8 mg capsule 0.8 mg feeding tube DAILY 12/24/22 01/23/23 Supplement lorazepam 0.5 mg tablet 0.25 mg feeding tube HS Anxiety 12/24/22 01/23/23 metoclopramide HCl 5 mg tablet 5 mg feeding tube BID Heartburn 12/24/22 01/23/23 omeprazole 20 mg capsule,delayed 20 mg feeding tube DAILY Acid 12/24/22 01/23/23 release reflux potassium chloride 20 mEq/15 mL 20 meq feeding tube BID Supplement 12/24/22 01/23/23 oral liquid quetiapine 100 mg tablet 100 mg feeding tube 0900,1300 12/24/22 01/23/23 Dementia WITH BEHAVIORAL DISTURBANCE quetiapine
[2023-05-13 10:40] VITALS: BP 104/62; PULSE 103; RESP 20; TEMP 37.2; O2SAT 98
== END 2023-05-13 10:54 ==
PROVIDERS: Emergency Provider Emergency Medicine
DX: T85.528A Displacement of other gastrointestinal prosthetic devices, implants and grafts, initial encounter (principal); G93.49 Other encephalopathy; G40.909 Epilepsy, unspecified, not intractable, without status epilepticus
CPT/HCPCS: 99283

== ENCOUNTER 2023-09-30 10:38 | Emergency (ER) | payer MEDICARE, MEDICAID, SELFPAY ==
[2023-09-30] VITALS (7 sets, daily range): BP systolic 105–125; BP diastolic 62–82; PULSE 105–113; RESP 18–22; TEMP 36.8; O2SAT 94–98; BMI 23.7
--- NOTE | 2023-09-30 10:56 | XR_ITS ---
FINAL REPORT CLINICAL HISTORY: soa, cough COMPARISON: 01/23/2023 FINDINGS: SINGLE-VIEW CHEST The heart size is normal. The mediastinum is normal. The lungs are clear. There is no pneumothorax. IMPRESSION: No acute cardiopulmonary process. Reviewed, Interpreted and Dictated by Federico Harris MD Transcribed by Amber Peral Authenticated and [facility]
[2023-09-30 11:02] LABS: Basophils # 0.1 K/mm3 (0-0.2); Basophils % 0.8 % (0.1-2.0); Eosinophils # 0.2 K/mm3 (0.0-0.4); Eosinophils % 2.6 % (0.1-12.0); Hematocrit 53.5 % (42.0-52.0); Hemoglobin 17.6 g/dL (14.1-18.0); Lymphocytes # 2.3 K/mm3 (0.7-4.5); Lymphocytes % 29.4 % (10-50); Mean Corpuscular Hemoglobin 33.6 pg (27.0-31.2); Mean Corpuscular Volume 101.9 fl (80-94); Mean Platelet Volume 10.4 fl (7.4-10.4); Monocytes # 0.8 K/mm3 (0.1-1.0); Monocytes % 10.1 % (1.7-9.3); Neutrophils # 4.5 K/mm3 (1.8-7.8); Neutrophils % 57.2 % (37.0-80.0); Platelet Count 284 K/mm3 (142-424); Red Blood Count 5.25 M/mm3 (4.60-6.20); Red Cell Distribution Width 13.6 % (11.5-17.5); White Blood Count 7.9 K/mm3 (4.8-10.8)
[2023-09-30 11:06] LABS: Alanine Aminotransferase 28 U/L (12-78); Albumin Level 3.8 g/dl (3.5-5.0); Albumin/Globulin Ratio 0.7 (1.1-1.8); Alkaline Phosphatase 136 U/L (38-126); Aspartate Amino Transferase 50 U/L (17-59); Bilirubin,Total 0.4 mg/dl (0.2-1.3); Blood Urea Nitrogen 21 mg/dl (9-20); Carbon Dioxide 34 mmol/L (22.0-30.0); Chloride 105 mmol/L (98-107); Creatinine Clearance Estimated 149 mL/min (50-200); Estimated Glomerular Filt Rate 138 ml/min (>60); GFR (African American) 167 ML/MIN (>60); Globulin 5.3 g/dL (1.3-3.2); Glucose 104 mg/dl (74-100); Sodium 146 mmol/L (136-145); Total Protein,Serum 9.1 g/dl (6.3-8.2)
--- NOTE | 2023-09-30 11:07 | ECG_ITS ---
APPROVED REPORT Exam: Resting ECG HR:104 bpm ECG Measurements Heart Rate 104 AXES OK 144 P 71 QRSd 72 QRS 128 QT 329 T 80 QTc 389 Conclusion SINUS TACHYCARDIA POSSIBLE RIGHT VENTRICULAR HYPERTROPHY [SOME/ALL OF: PROMINENT R IN V1, LATE TRANSITION, RAD, PRETTY, SSS] LATERAL MYOCARDIAL INFARCTION , OF INDETERMINATE AGE [40+ ms Q WAVE AND/OR ST/T ABNORMALITY IN I/aVL/V5/V6] ABNORMAL ECG UNCONFIRMED REPORT Electronically signed by : Shiv Hu MD 10/01/2023 13:41:02
[2023-09-30] MEDS: LACTATED RINGERS 1000ML 2,000 ML 999 ML IV (11:13)
[2023-09-30 11:25] LABS: Troponin I < 0.01 ng/ml (0.00-0.034)
--- NOTE | 2023-09-30 11:37 | ED_ITS ---
Discharge Plan Disposition Patient Disposition: Home, Self-Care Prescriptions Prescriptions: New prednisone 20 mg tablet 40 mg PO DAILY 5 Days Qty: 10 0RF amoxicillin-pot clavulanate 875-125 mg tablet 1 tab PO BID 7 Days Qty: 14 0RF No Action doxazosin 1 mg tablet 1 mg feeding tube DAILY quetiapine 200 mg tablet 200 mg feeding tube HS thiamine HCl (vitamin B1) 100 mg Tablet 100 mg feeding tube DAILY quetiapine 100 mg tablet 100 mg feeding tube 0900,1300 acetaminophen 500 mg Tablet 500 mg feeding tube Q4HP PRN (Reason: MILD PAIN/FEVER) potassium chloride 20 mEq/15 mL liquid 20 meq feeding tube BID lorazepam 0.5 mg tablet 0.25 mg feeding tube HS metoclopramide HCl 5 mg tablet 5 mg feeding tube BID valproic acid (as sodium salt) 250 mg/5 mL solution 500 mg feeding tube BID omeprazole 20 mg capsule,delayed release(DR/EC) 20 mg feeding tube DAILY aspirin 81 mg Tablet,Chewable 81 mg feeding tube DAILY folic acid 0.8 mg Capsule 0.8 mg feeding tube DAILY cholecalciferol (vitamin D3) 100 mcg (4,000 unit) Tablet 100 mcg feeding tube DAILY melatonin 3 mg Tablet 3 mg PO HS simethicone 80 mg Tablet,Chewable 80 mg PO Q6HP PRN (Reason: gas/bloating) Lactobacillus acidophilus 1 billion cell Capsule 1,000 mmu cells PO DAILY polyethylene glycol 3350 [Miralax] 17 gram/dose Powder 17 g PO DAILY Referrals Follow up/Referrals: Provider,Referral, MD [Referring] - See instructions Activity Restrictions/Add. Instructions Additional Instructions/Restrictions: Call your family doctor to establish care for this visit to the emergency department and schedule follow-up within 48 hours to ensure improvement. If you have any worsening of your condition or any other concerning signs or symptoms, return to the emergency department or your primary care doctor for further evaluation. Prednisone and Augmentin as prescribed Clinical Impressions Clinical Impression: Acute exacerbation of chronic obstructive pulmonary disease Discharge ED Provider: Connor Renee [facility] General Chief Complaint: Shortness of Breath/Dyspnea Stated Complaint: soa lethargic Time Seen by Provider: 09/30/23 10:42 Mode of Arrival: EMS Source of Information: Patient and EMS Limitations: No Limitations Description of Symptoms (Recalled from ER Triage Doc. by RN): Patient reports not feeling well for approx 6 days. Per EMS care home stated the patient was short of breath and had decreased oxygen saturations. History of Present Illness HPI narrative: Patient has history of Warnicke Korsakoff syndrome with chronic encephalopathy, seizure disorder who is now bedbound and G-tube dependent presenting with concern for shortness of breath. Patient states that he was sent from care home because he was short of breath and needing oxygen. Patient came in on 2 L, states he does not usually wear oxygen at home. Denies fevers or chills, nausea vomiting, abdominal pain, or any other concerns. Patient states they have been keeping me dehydrated for some reason. Unsure if his G-tube is working or is clogged. Related Data Home Medications Medication Instructions Recorded Confirmed acetaminophen 500 mg tablet 500 mg feeding tube Q4HP PRN MILD 12/24/22 05/17/23 PAIN/FEVER aspirin 81 mg chewable tablet 81 mg feeding tube DAILY Heart 12/24/22 05/17/23 health cholecalciferol (vitamin D3) 100 100 mcg feeding tube DAILY 12/24/22 05/17/23 mcg (4,000 unit) tablet Supplement doxazosin 1 mg tablet 1 mg feeding tube DAILY High blood 12/24/22 05/17/23 pressure folic acid 0.8 mg capsule 0.8 mg feeding tube DAILY 12/24/22 05/17/23 Supplement lorazepam 0.5 mg tablet 0.25 mg feeding tube HS Anxiety 12/24/22 05/17/23 metoclopramide HCl 5 mg tablet 5 mg feeding tube BID Heartburn 12/24/22 05/17/23 omeprazole 20 mg capsule,delayed 20 mg feeding tube DAILY Acid 12/24/22 05/17/23 release reflux potassium chloride 20 mEq/15 mL 20 meq feeding tube BID Supplement 12/24/22 05/17/23 oral liquid quetiapine 100 mg tablet 100 mg feeding tube 0900,1300 12/24/22 05/17/23 Dementia WITH BEHAVIORAL DISTURBANCE quetiapine 200 mg tablet 200 mg feeding tube HS Dementia 12/24/22 05/17/23 WITH BEHAVIORAL DISTURBANCE thiamine HCl (vitamin B1) 100 mg 100 mg feeding tube DAILY 12/24/22 05/17/23 tablet Supplement valproic acid (as sodium salt) 250 500 mg feeding tube BID Seizure 12/24/22 05/17/23 mg/5 mL oral solution Lactobacillus acidophilus 1 1,000 mmu cells PO DAILY probiotic 12/25/22 05/17/23 billion cell capsule melatonin 3 mg tablet 3 mg PO HS Insomnia 12/25/22 05/17/23 polyethylene glycol 3350 17 17 g PO DAILY constipation 12/25/22 05/17/23 gram/dose oral powder (Miralax) simethicone 80 mg chewable tablet 80 mg PO Q6HP PRN gas/bloating 12/25/22 05/17/23 Previous Rx's Medication Instructions Recorded amoxicillin 875 mg-potassium 1 tab PO BID 7 days #14 tabs 09/30/23 clavulanate 125 mg tablet prednisone 20 mg tablet 40 mg PO DAILY 5 days #10 tabs 09/30/23 Allergies Allergy/AdvReac Type Severity Reaction Status Date / Time No Known Allergies Allergy Verified 05/17/23 12:28 [facility] Disclaimer: The information contained in this section may have been updated after the patient was seen, as this information can be updated by other users. Medical History Gastrostomy tube in place Social History Smoking Status: Unknown if ever smoked second hand exposure: No alcohol intake: former substance use type: denies use current occupational status: disabled Travel in the last 8 weeks: None household members: other housing: care home caffeine: No ROS Obtained: Yes All systems reviewed & no additional complaints except as documented Physical Exam General General appearance: alert and other (Chronically ill) ENT ENT exam: Present mucous membranes dry Neck Neck exam: Present trachea midline Chest Chest inspection: Present normal inspection and symmetric chest wall rise Respiratory Respiratory exam: Present wheezes (Diffuse bilateral); Absent normal lung sounds bilaterally, respiratory distress, stridor, accessory muscle use or prolonged expiratory phase Cardiovascular Cardiovascular exam: Present normal rhythm and tachycardia Abdominal Exam Abdominal exam: Present soft; Absent distention, tenderness or guarding Comment: G-tube in place. Bumper present, no evidence of skin breakdown Extremities Exam Extremities exam: Absent edema Neurological Exam Neurological exam: Present alert, oriented X3 and CN II-XII intact Skin Skin exam: Present warm and dry; Absent cyanosis, diaphoresis or pallor HEART Score HEART Score HEART Score assessment performed?: Yes HEART Score: 2 Critical Care Critical Care Time Critical Care Time: No Medical Decision Making Medical Records Medical records reviewed: Yes I reviewed the patient's medical records. Gene Inquiry Pt receiving controlled substance: No Gene was queried for this patient: No Vital Signs Vital Signs: 09/30/23 10:40 09/30/23 11:00 09/30/23 12:00 Temperature 98.3 F Temperature Source Oral Pulse Rate 105 H 109 H Pulse Rate [Radial] 113 H Respiratory Rate 20 22 19 Blood Pressure 107/82 L 115/62 Blood Pressure [Right Arm] 109/79 L Blood Pressure Mean 89 Blood Pressure Mean [Right Arm] 89 Blood Pressure Source [Right Arm] Automatic Cuff Blood Pressure Position [Right Arm] Supine 02 Sat by Pulse Oximetry 98 97 96 Oxygen Delivery Method Room Air Room Air Room Air 09/30/23 12:30 Temperature Temperature Source Pulse Rate 108 H Pulse Rate [Radial] Respiratory Rate 18 Blood Pressure 105/68 L Blood Pressure [Right Arm] Blood Pressure Mean 75 Blood Pressure Mean [Right Arm] Blood Pressure Source [Right Arm] Blood Pressure Position [Right Arm] 02 Sat by Pulse Oximetry 95 Oxygen Delivery Method Lab Data Labs: Lab Results 09/30/23 10:52: WBC 7.9, RBC 5.25, Hgb 17.6, Hct 53.5 H, MCV 101.9 H, MCH 33.6 H , MCHC 33.0, RDW 13.6, Plt Count 284, MPV 10.4, Neut % (Auto) 57.2, Lymph % (Auto) 29.4, [place] % (Auto) 10.1 H, Eos % (Auto) 2.6, Baso % (Auto) 0.8, Neut # (Auto) 4.5, Lymph # (Auto) 2.3, [place] # (Auto) 0.8, Eos # (Auto) 0.2, Baso # (Auto) 0.1, Sodium 146 H, Potassium 5.0, Chloride 105, Carbon Dioxide 34 H, Anion Gap 12.0, BUN 21 H, Creatinine 0.60 L, Estimated Creat Clear 149, Estimated GFR 138, Est GFR ( Amer) 167, Glucose 104 H, Calcium 10.0, Total Bilirubin 0.4, AST 50, ALT 28, Alkaline Phosphatase 136 H, Troponin I < 0.01, Total Protein 9.1 H, Albumin 3.8, Globulin 5.3 H, Albumin/Globulin Ratio 0.7 L 09/30/23 10:52 09/30/23 10:52 Response Orders (Tests/Meds): ED MEDICATIONS Generic Name Dose Route Start Last Admin Trade Name Manny PRN Reason Stop Dose Admin Sodium Chloride 10 ml 09/30/23 10:55 Sodium Chloride 0.9% 10ml Flush Syringe IV 10/30/23 10:54 NEEDED PRN Maintain IV Site Discontinued Medications Generic Name Dose Route Start Last Admin Trade Name Manny PRN Reason Stop Dose Admin Albuterol/Ipratropium 6 ml 09/30/23 11:15 09/30/23 11:58 Ipratropium/Albuterol 3 Ml Neb IH 09/30/23 11:16 6 ml ONCE ONE Administration Amoxicillin/Clavulanate Potassium 1 each 09/30/23 12:30 Amoxicillin/Clavulanate Potassium 875/125mg Tablet PO 09/30/23 12:31 ONCE ONE Folic Acid 1 mg 09/30/23 11:14 09/30/23 12:08 Folic Acid 1mg Tablet PO 09/30/23 11:15 1 mg ONCE ONE Administration Lactated Ringer's 2,000 mls @ 999 mls/hr 09/30/23 11:01 09/30/23 11:13 Lactated Ringer's 1000 Ml Bag IV 09/30/23 13:01 999 mls/hr .Q2H1M ONE Administration Methylprednisolone Sodium Succinate 125 mg 09/30/23 11:15 09/30/23 11:59 Methylprednisolone Sod Succ 125mg Vial IV 09/30/23 11:16 125 mg ONCE ONE Administration Thiamine HCl 100 mg 09/30/23 11:13 09/30/23 11:59 Thiamine 100mg Tablet PO 09/30/23 11:14 100 mg ONCE ONE Administration ORDERS Category Date Time Status XR chest portable Stat Exams 09/30/23 10:56 Completed Complete Blood Count Auto Diff Stat Lab 09/30/23 10:52 Completed Comprehensive Metabolic Panel Stat Lab 09/30/23 10:52 Completed Troponin I Q3H Lab 09/30/23 14:00 Ordered Troponin I Q3H Lab 09/30/23 17:00 Ordered Troponin I Stat Lab 09/30/23 10:52 Completed MDM Narrative Medical Decision Narrative: Patient has history of Warnicke Korsakoff syndrome with chronic encephalopathy, seizure disorder, COPD who is now bedbound and G-tube dependent presenting with concern for shortness of breath. Patient states that he was sent from care home because he was short of breath and needing oxygen. Patient came in on 2 L, states he does not usually wear oxygen at home. Denies fevers or chills, nausea vomiting, abdominal pain, or any other concerns. Patient states they have been keeping me dehydrated for some reason. Unsure if his G-tube is working or is clogged.. History was obtained via conversation with patient, EMS. On arrival, patient hemodynamically stable, alert, GCS 15, moving all extremities spontaneously, pupils equal and reactive to light. Full physical exam performed and significant for chronically ill-appearing male no acute d istress. He is dehydrated with dry mucous membranes and mild tachycardia. Lungs have diffuse bilateral wheezes, but no focal breath sounds. Abdomen is soft, nontender, nondistended with G-tube in place without signs of complication. Differential includes dehydration, bronchitis, pneumonia, COPD exacerbation, ACS, RI, PE, among others Patient was given 2 L fluid bolus, DuoNeb, Solu-Medrol, B9, B12 for symptomatic management and correction of underlying abnormalities. Workup independently interpreted and significant for macrocytic RBCs, nonactionable CBC otherwise. Chemistry nonactionable with normal kidney function. See radiology read for full review of final results. Independent in terpretation of EKG shows sinus tachycardia 104 beats a minute with no ST or T wave changes concerning for acute ischemia. AR, QRS, QT intervals within normal limits. Heart score of 2. On reevaluation, patient given Augmentin for COPD exacerbation. Given patient presentation, workup, history, this most likely represents COPD exacerbation. Because patient at baseline without signs or symptoms of clinical decompensation, deemed appropriate for discharge. Results were relayed to patient who voiced understanding and were agreeable to outpatient management and follow up. At the time of discharge the patient was hemodynamically stable, tolerating PO, and mobilizing appropriately.
[2023-09-30] MEDS: IPRATROPIUM/ALBUTEROL 3 ML NEB 6 ML IH (11:58)
[2023-09-30] MEDS: THIAMINE 100MG TABLET 100 MG PO (11:59)
[2023-09-30] MEDS: METHYLPREDNISOLONE SOD SUCC 125MG VIAL 125 MG IV (11:59)
[2023-09-30] MEDS: FOLIC ACID 1MG TABLET 1 MG PO (12:08)
--- NOTE | 2023-09-30 13:39 | PC.NURSE ---
Updated Cynthia at [facility] that pt would be returning but will have a delayed transportation due to no ambulance availability at this time
[2023-09-30] MEDS: AMOXICILLIN/CLAVULANATE POTASSIUM 875/125MG TABLET 1 EACH PO (13:41)
== END 2023-09-30 14:16 | disposition home or self-care (01) ==
PROVIDERS: Emergency Provider Emergency Medicine; PCP Internal Medicine Adolescent Medicine
DX: J44.1 Chronic obstructive pulmonary disease with (acute) exacerbation (principal); R06.02 Shortness of breath; G93.40 Encephalopathy, unspecified; G40.909 Epilepsy, unspecified, not intractable, without status epilepticus; F10.26 Alcohol dependence with alcohol-induced persisting amnestic disorder; Z74.01 Bed confinement status; Z93.1 Gastrostomy status; R00.0 Tachycardia, unspecified
CPT/HCPCS: 71045; 80053; 84484; 85025; 93005; 96361; 96374; 99285

== ENCOUNTER 2024-05-16 14:20 | Inpatient (IN) | payer MEDICARE, MEDICAID, SELFPAY ==
[2024-05-16] VITALS (27 sets, daily range): BP systolic 83–189; BP diastolic 51–108; PULSE 44–118; RESP 16–32; TEMP 36.4–36.7; O2SAT 94–100; BMI 19.0
--- NOTE | 2024-05-16 12:42 | P.PNANES_ITS ---
[facility] Disclaimer: The information contained in this section may have been updated after the patient was seen, as this information can be updated by other users. Medical History (Updated 05/16/24 @ 12:29 by Flor Agarwal RN) Seizures Cardiac arrest Lung nodules Gastrostomy tube in place Surgical History (Updated 05/16/24 @ 12:30 by Flor Agarwal RN) Hx of esophagogastroduodenoscopy Family History (Updated 05/16/24 @ 12:30 by Flor Agarwal RN) Other No significant family history Social History Smoking Status: Unknown if ever smoked second hand exposure: No alcohol intake: former substance use type: denies use current occupational status: disabled Travel in the last 8 weeks: None household members: other housing: senior care caffeine: No [facility] Anesthesia Checklist Patient Identification Patient Identification: Arm Band, Family and Verbal (Name & ) Structural Data Admitted From: Long-term Nursing Facility Planned Operative Procedure/s: EGD Consent for Planned Operative Procedure(s) Verified: Yes Verified Documents: Surgical Consent and History and Physical NPO Status Verified Time NPO: 05:30 (tube feedings) Chart Verification Results Verified: CBC, BMP, ECG and Chest Xray Additional verifications Patient : No Anesthesia Reactions: No Cardiovascular Assessment Heart Sounds: S1 & S2 Pulse Rhythm: Irregular Peripheral Edema: No Airway Assessment Mallampati Score:: Class II C-Spine Mobility Assessed: Yes (FROM) TMJ Mobility Assessed: Yes Dentition: Edentulous Neurological Assessment Level of Consciousness: Awake, Alert, Follows Commands and Disoriented (s/p TBI; chronic encephalpoathy) Hx Seizures: Yes Numbness or tingling in extremities: No Anesthesia Plan Anesthesia Risk discussed: Yes Anesthesia Plan: Verified ASA Class: III Anesthesia Type: MAC
--- NOTE | 2024-05-16 13:46 | HMH.SCOPE ---
Procedure: Date: 05/16/24 Patient Date of :: 1965 Procedure Performed:: EGD Indications:: The patient is a 59 year-old who presents from [facility] for evaluation after an abnormal CT scan of the abdomen and pelvis. Patient had a CT scan of the abdomen pelvis with contrast in March for evaluation of abdominal pain. The CT scan reported wall thickening of the gastric pylorus and duodenal bulb with an equivocal mass in the duodenal bulb. Performing Provider:: Axel Kahn MD Referring Provider:: Duke Hu MD Sedation:: See RN records Procedure:: The gastroscope was gently passed through the incisoral orifice into the oral cavity under direct visualization. There was blood encountered upon entering the oral cavity obscuring visualization and the gastroscope was removed. Prior to performing the EGD procedure, the patient did receive oropharyngeal suctioning and also had episodes of coughing before procedure started. Anesthesia service was present for management. The patient was intubated and received ET suction. Red blood was suctioned from the endotracheal tube. The gastroscope was gently reinserted and passed through the incisoral orifice into the oral cavity and under direct visualization the esophagus was intubated. The endoscope was passed down the esophagus, through the stomach, and into the duodenum. After completion of the EGD procedure, ENT service provider was present for oropharyngeal evaluation. Evaluation showed no active bleeding within the oropharyngeal cavity. It was noted that there was blood within the proximal trachea. The patient then had evaluation with the pulmonary service and underwent bronchoscopy. There was blood seen within the right main stem bronchus and a foreign object within the bronchus was removed. Findings:: There was no active bleeding seen in the esophagus, stomach, or duodenum. Within the body of the stomach there was a gastrostomy tube bumper seen. Gently pushing the gastrostomy tube externally into the gastric lumen showed no evidence of bleeding or ulceration behind the bumper. There was congested appearing mucosa at the pylorus. The gastroscope passed easily through the pyloric channel into the duodenal bulb. Within the duodenal bulb there was also congested mucosa and mild duodenitis. The remaining duodenum appeared normal. The stomach appeared normal and there was no active bleeding seen. Biopsies were obtained from the pyloric channel and duodenal bulb for histology. Recommendations:: Await pathology report The EGD procedure was brief. On endoscopic evaluation there was no obvious mass lesion or ulceration. The mucosa within this area was congested (edematous) appearing. The patient is being admitted to the hospital for further evaluation and treatment. Would recommend some form of interval follow-up on the previous CT imaging of the abdomen that reported an abnormality within the gastroduodenal area. A repeat CT scan of the abdomen could be considered during the patient's hospital admission. A follow-up EGD in the near future with reevaluation could also be considered. Recommend omeprazole or esomeprazole 40 mg once daily per feeding tube Complications:: See records under procedure report. There were no immediate complications as related to the EGD procedure Estimated blood obtained (mL): 0 Colonoscopy Component Colonoscopy Component Was a colonoscopy performed during today's procedure?: No
--- NOTE | 2024-05-16 14:06 | CT_ITS ---
FINAL REPORT CLINICAL HISTORY: complicated upper GI scope COMPARISON: 01/23/2023 FINDINGS: CT OF THE ABDOMEN AND PELVIS WITH CONTRAST Axial CT images of the abdomen and pelvis were obtained after the administration of IV contrast. Coronal reformatted images were also obtained and reviewed.This study was performed with techniques to keep radiation doses as low as reasonably achievable (ALARA). Individualized dose reduction techniques using automated exposure control or adjustment of mA and/or kV according to the patient''s size were employed. Abdomen: A G-tube is present in the stomach. The liver has an unremarkable appearance, without evidence of mass or biliary ductal dilatation. The spleen is unremarkable. No adrenal mass is present. The pancreas has an unremarkable appearance. A 13 mm right renal cyst is stable. There is a less than 3 mm probable left renal stone which is also stable. The aorta is normal in caliber. There are moderate vascular calcifications. There is no free fluid or adenopathy. No mass or abnormal fluid collection is seen. Pelvis: The appendix is not visualized. Mild bladder wall thickening is likely inflammatory. There is a right inguinal hernia containing fat. There is no adenopathy. There is no evidence of bowel obstruction. IMPRESSION: G-tube present in the stomach. Mild bladder wall thickening, likely inflammatory. Stable right renal cyst. Stable left renal stone. Reviewed, Interpreted and Dictated by Yuri Troy III, MD Transcribed by Kelli Rivera Authenticated and [facility]
--- NOTE | 2024-05-16 14:13 | CT_ITS ---
FINAL REPORT CLINICAL HISTORY: aspiration COMPARISON: 06/07/2021 FINDINGS: Axial CT images of the chest were obtained with contrast. Coronal reformatted images were also obtained. This study was performed with techniques to keep radiation doses as low as reasonably achievable, (ALARA). Individualized dose reduction techniques using automated exposure control or adjustment of mA and/or KV according to the patient''''s size were employed. Endotracheal tube is present with the tip at the rikki. There is mediastinal and right hilar adenopathy, worse from prior study. A subcarinal node measuring 22 mm previously measured 18 mm. There is a right hilar node measuring 22 mm, previously measured 16 mm. No axillary mass or adenopathy is identified. On lung window images, no pulmonary mass or dominant pulmonary nodule is identified. There is persistent chronic consolidation in the bilateral lower lobes, right worse than left. There are new multifocal alveolar and ground-glass opacities, [id number], which are consistent with bilateral pneumonia. IMPRESSION: New bilateral pneumonia, [id number]. Persistent chronic consolidation bilateral lower lobes, right worse than left. Reviewed, Interpreted and Dictated by Yuri Troy III, MD Transcribed by Kelli Rivera Authenticated and [facility]
[2024-05-16 14:22] LABS: Basophils # 0.1 K/mm3 (0-0.2); Basophils % 1.1 % (0.1-2.0); Eosinophils # 0.3 K/mm3 (0.0-0.4); Eosinophils % 2.1 % (0.1-12.0); Hematocrit 47.5 % (42.0-52.0); Hemoglobin 14.8 g/dL (14.1-18.0); Lymphocytes # 2.5 K/mm3 (0.7-4.5); Lymphocytes % 20.5 % (10-50); Mean Corpuscular HGB Conc 31.2 g/dL (31.8-35.4); Mean Corpuscular Hemoglobin 32.2 pg (27.0-31.2); Mean Corpuscular Volume 103.3 fl (80-94); Mean Platelet Volume 9.6 fl (7.4-10.4); Monocytes # 0.9 K/mm3 (0.1-1.0); Monocytes % 7.4 % (1.7-9.3); Neutrophils # 8.2 K/mm3 (1.8-7.8); Platelet Count 434 K/mm3 (142-424); Red Blood Count 4.59 M/mm3 (4.60-6.20); Red Cell Distribution Width 13.6 % (11.5-17.5); White Blood Count 11.9 K/mm3 (4.8-10.8)
--- NOTE | 2024-05-16 14:30 | PC.NURSE ---
arrived by stretcher from surgery
[2024-05-16] MEDS: IOPAMIDOL-370 (76%);100ML BOTTLE 75 ML IV (14:32)
[2024-05-16] MEDS: SODIUM CHLORIDE 0.9% 10ML SYR (RAD ONLY) 10 ML IV (14:32)
[2024-05-16] MEDS: propofoL 100 ML 9.53 MG IV (14:45)
--- NOTE | 2024-05-16 15:07 | EXP.PULM.CON ---
History of Present Illness History of present illness: Mr. Fountain is a 59-year-old jail resident reported history of recurrent aspiration pneumonia chest x-ray from September did not show any significant airspace disease, most recent sputum cultures from 2021 & 2022 grew Proteus Enterobacter and providentia presented for elective endoscopy started having hemoptysis during the procedure needing intubation and mechanical ventilatory support for airway protection pulmonary was called for further evaluation and management [facility] Disclaimer: The information contained in this section may have been updated after the patient was seen, as this information can be updated by other users. Medical History (Updated 05/16/24 @ 15:09 by Nicole Lazaro RN) GERD (gastroesophageal reflux disease) TBI (traumatic brain injury) COPD (chronic obstructive pulmonary disease) On mechanically assisted ventilation Hemoptysis Seizures Cardiac arrest Lung nodules Gastrostomy tube in place Surgical History (Updated 05/16/24 @ 12:30 by Flor Agarwal RN) Hx of esophagogastroduodenoscopy Family History (Updated 05/16/24 @ 12:30 by Flor Agarwal RN) Other No significant family history Social History Smoking Status: Unknown if ever smoked second hand exposure: No alcohol intake: former substance use type: denies use current occupational status: disabled Travel in the last 8 weeks: None household members: other housing: jail caffeine: No Review of Systems Review of Systems Review of systems:: unable to obtain Review of systems (narrative): Intubated and sedated Pulmonology Exam Inpatient Vital signs and Labs for Last 24 Hours: Temp Pulse Resp BP Pulse Ox O2 Del Method FiO2 98 F 95 H 16 150/88 H 100 Mechanical Ventilation 50 05/16/24 14:58 05/16/24 12:30 05/16/24 14:41 05/16/24 14:58 05/16/24 14:41 05/16/24 14:41 05/16/24 14:41 Laboratory Results - last 24 hr 05/16/24 14:07: WBC 11.9 H, RBC 4.59 L, Hgb 14.8, Hct 47.5, MCV 103.3 H, MCH 32.2 H, MCHC 31.2 L, RDW 13.6, Plt Count 434 H, MPV 9.6, Neut % (Auto) 69.0, Lymph % (Auto) 20.5, Reagan % (Auto) 7.4, Eos % (Auto) 2.1, Baso % (Auto) 1.1, Neut # (Auto) 8.2 H, Lymph # (Auto) 2.5, Reagan # (Auto) 0.9, Eos # (Auto) 0.3, Baso # (Auto) 0.1, Blood Type O Positive I & O for Labs for Last 24 Hours: Intake & Output 05/13/24 05/14/24 05/15/24 05/16/24 23:59 23:59 23:59 23:59 Weight 140 lb Constitutional: Present moderate distress Head: Present normocephalic and atraumatic ENT: Present normal exam, normal oropharynx and mucous membranes moist Neck: Present normal inspection and full ROM Respiratory: Present respiratory distress, rhonchi and able to speak in complete sentences Cardiac: Present S1/S2, Tachycardia and radial pulses present GI: Present soft and distention; Absent tenderness or guarding Skin: Present intact; Absent cyanosis or jaundice Neuro: Present alert, awake and oriented x 3 Extremities: Present normal inspection; Absent clubbing or cyanosis Psychiatric: Present normal affect and cooperative Meds Home Medications and Allergies Home Medications ?Medication ?Instructions ?Recorded ?Confirmed ?Type acetaminophen 500 mg tablet 500 mg feeding tube Q4HP PRN MILD 12/24/22 05/17/23 History PAIN/FEVER aspirin 81 mg chewable tablet 81 mg feeding tube DAILY Heart 12/24/22 05/17/23 History health cholecalciferol (vitamin D3) 100 100 mcg feeding tube DAILY 12/24/22 05/17/23 History mcg (4,000 unit) tablet Supplement doxazosin 1 mg tablet 1 mg feeding tube DAILY High blood 12/24/22 05/17/23 History pressure folic acid 0.8 mg capsule 0.8 mg feeding tube DAILY 12/24/22 05/17/23 History Supplement lorazepam 0.5 mg tablet 0.25 mg feeding tube HS Anxiety 12/24/22 05/17/23 History metoclopramide HCl 5 mg tablet 5 mg feeding tube BID Heartburn 12/24/22 05/17/23 History omeprazole 20 mg capsule,delayed 20 mg feeding tube DAILY Acid 12/24/22 05/17/23 History release reflux potassium chloride 20 mEq/15 mL 20 meq feeding tube BID Supplement 12/24/22 05/17/23 History oral liquid quetiapine 100 mg tablet 100 mg feeding tube 0900,1300 12/24/22 05/17/23 History Dementia WITH BEHAVIORAL DISTURBANCE quetiapine 200 mg tablet 200 mg feeding tube HS Dementia 12/24/22 05/17/23 History WITH BEHAVIORAL DISTURBANCE thiamine HCl (vitamin B1) 100 mg 100 mg feeding tube DAILY 12/24/22 05/17/23 History tablet Supplement valproic acid (as sodium salt) 250 500 mg feeding tube BID Seizure 12/24/22 05/17/23 History mg/5 mL oral solution Lactobacillus acidophilus 1 1,000 mmu cells PO DAILY probiotic 12/25/22 05/17/23 History billion cell capsule melatonin 3 mg tablet 3 mg PO HS Insomnia 12/25/22 05/17/23 History polyethylene glycol 3350 17 17 g PO DAILY constipation 12/25/22 05/17/23 History gram/dose oral powder (Miralax) simethicone 80 mg chewable tablet 80 mg PO Q6HP PRN gas/bloating 12/25/22 05/17/23 History amoxicillin 875 mg-potassium 1 tab PO BID 7 days #14 tabs 09/30/23 Rx clavulanate 125 mg tablet prednisone 20 mg tablet 40 mg (2 x 20 mg) PO DAILY 5 days 09/30/23 Rx #10 tabs New Prescriptions to Start Prescriptions: Allergies Allergy/AdvReac Type Severity Reaction Status Date / Time No Known Allergies Allergy Verified 05/16/24 12:30 Results Laboratory Findings 05/16/24 14:07 Abnormal lab findings: Abnormal Labs 05/16/24 14:07 WBC 11.9 H RBC 4.59 L MCV 103.3 H MCH 32.2 H MCHC 31.2 L Plt Count 434 H Neut # (Auto) 8.2 H Assessment and Plan *Assessment and plan (1) Hemoptysis: Status: Acute Category: Medical Code(s): R04.2 - Hemoptysis (2) Pneumonia: Status: Resolved Qualifiers: Laterality: right Lung location: lower lobe of lung Pneumonia type: due to unspecified organism Qualified Code(s): J18.9 - Pneumonia, unspecified organism Category: Medical Code(s): J18.9 - Pneumonia, unspecified organism (3) On mechanically assisted ventilation: Status: Acute Category: Medical Code(s): Z99.11 - Dependence on respirator [ventilator] status Plan Mr. Fountain is a 59-year-old jail resident reported history of recurrent aspiration pneumonia chest x-ray from September did not show any significant airspace disease, most recent sputum cultures from 2021 & 2022 grew Proteus Enterobacter and providentia presented for elective endoscopy started having hemoptysis during the procedure needing intubation and mechanical ventilatory support for airway protection pulmonary was called for further evaluation and management Bronch Air way exam - Hemoptysis likely from RLL. Foreign body removed likely bone/tooth CT chest with contrast - RLL dense consolidation with RML patchy air space disease. Plan: - Initiate Zosyn pending BAL cultures - F/U PT/INR - Continue mechanical ventilatory support now at PPEP of 10, 420Vt, RR16 and 100% FiO2 - Continue AnalgoSedation with Propofol and Fentanyl with deep sedation goal - VAP bundle Recommend elevate head of the bed at 30 to 45 degrees Recommend oral care with chlorhexidne Recommend GI ulcer prophylaxis - Famotidine 20mg IV BID Recommend mechanical DVT prophylaxis Total critical care time spent on this patient is 35 minutes managing acute hypoxic respiratory failure needing mechanical ventilation. This time spent include reviewing test results including interpreting chest x-rays, labs and arterial blood gas, optimizing the ventilator settings,formulating plan of care, discussing the plan of care with the team and the nursing staff.
--- NOTE | 2024-05-16 15:14 | EXP.OP.NOTE ---
Date of procedure: 05/16/24 Pre-op Diagnosis:: Hemoptysis, hematemesis Post-op Diagnosis:: Hemoptysis Procedure performed:: Fiberoptic laryngoscopy and laryngoscopy Surgeon:: Ge Millan MD NEWSPAPER MANAGING EDITOR:: Denisa Angel Anesthesia: GETA Estimated blood loss (mL): 0 Clinical Note:: I was asked to see the patient emergently in the endoscopy suite following EGD. There is acute bleeding from the pharynx. He has no previous history of laryngeal or pharyngeal cancer and no recent history of hemoptysis or hematemesis. When I arrived, he was intubated and there was blood in the endotracheal tube Operative findings:: Nasal cavity, nasopharynx, hypopharynx, and the visible portion of his larynx is normal. Pharyngeal exam was also normal. No obvious bleeding source in the upper aerodigestive tract. Operative note:: In the endoscopy suite, fiberoptic exam of nasopharynx hypopharynx and larynx was performed. No obvious mass, lesion, or bleeding source was identified. Visualization of the larynx was limited because of the endotracheal tube. I also examined his pharynx andNo obvious bleeding source was identified. I passed fiberoptic scope down his endotracheal tube and there was a lot of fresh blood in the upper trachea. Pulmonary medicine has been consulted. Condition: stable Disposition: ICU Complications:: none
[2024-05-16 15:18] LABS: Microscopic, Urine URINE MICROSCOPIC (MICROSCOPIC)
--- NOTE | 2024-05-16 15:19 | EXP.BRONCH.N ---
Procedure: Date: 05/16/24 Patient Date of :: 1965 Procedure Performed:: Bronchoscopy airway examination foreign body retrieval Indications:: Hemoptysis Performing Provider:: Sara Todd MD Referring Provider:: Axel Kahn MD Sedation:: General anesthesia Procedure:: Bronchoscopy airway examination, bronchoalveolar lavage and foreign body retrieval: Received call from endoscopy unit from Dr. Axel Bernal as the patient that is undergoing elective endoscopy experienced episode of hemoptysis needing intubation for airway support. Went to the endoscopy room. Patient being intubated and has been bagging. Vital stable. Bronchoscopy performed with airway examination. Significant amount of bloody secretions were suctioned the bilateral lung brown, right greater than left. It appears that the hemoptysis is orignating from the right lower lobe. Cold saline was applied. At the end of the bronchoscopy no significant hemoptysis noted. Also noted to have likely foreign body in the right lower lobe bronchi which was retracted using a biopsy forceps. The foreign body appeared bone/toothlike appearance. Sent to pathology for finalization. BAL was also performed a right lower lobe and was sent for cell count differential bacterial fungal Gram stain culture sensitivity along with cytopathology. Will follow the results. Findings:: Please see the procedure note Recommendations:: Please see the consult note from today. Complications:: No acute immediate complications. Estimated blood obtained (mL): 25
--- NOTE | 2024-05-16 15:25 | P.HP_ITS ---
History of Present Illness *Admission Date: 05/16/24 *Reason for visit:: Gross hemoptysis *History of present illness: This is a 59-year-old male that presents to [facility] endoscopy lab for EGD and evaluation for abnormal CT abdomen (January 2024). During the procedure hemoptysis was identified from the ET tube. The EGD procedure was completed identifying no esophageal lesions or bleeding, gastric lesions or bleeding or duodenal bleeding. ENT performed an endoscopy and identified no anterior posterior bleeding. They confirmed bleeding from the ET tube. Pulmonology performed an emergent bronchoscopy identifying a foreign object in the right airway tract. It was removed for pathology assessment. His right airway was irrigated and no further bleeding was assessed. He remained intubated and mechanically ventilated and his care was transitioned to the ICU. The patient's history is acquired from his brother and POA and [id number] who is a retired RN. They report that the patient in 2019 was found down at home and his care was subsequently transitioned to the [facility] for care. At concerns with anoxic brain injury, dysphagia were noted and he received a PEG tube and his care was transitioned to long-term care at [facility]. Family reports that he has had a PEG tube since 2019 and has been n.p.o. for greater than a year. He had a complete dental extraction in 2019. They report that he is non-ambulatory. [facility] Medical History (Updated 05/16/24 @ 16:16 by Phil Landa MD) Cognitive impairment Flaccid paraplegia Dysphagia GERD (gastroesophageal reflux disease) COPD (chronic obstructive pulmonary disease) Hemoptysis Seizures Lung nodules Gastrostomy tube in place Surgical History (Updated 05/16/24 @ 16:16 by Phil Landa MD) S/P percutaneous endoscopic gastrostomy (PEG) tube placement Hx of esophagogastroduodenoscopy Family History (Updated 05/16/24 @ 16:18 by Phil Landa MD) Mother Non Hodgkin's lymphoma Father Lung cancer Social History (Updated 05/16/24 @ 16:19 by Phil Landa MD) Smoking Status: Former smoker tobacco type: cigarettes packs per day: 1 years smoked: 30 smoking status stop date: 2018 second hand exposure: No alcohol intake: former substance use type: denies use current occupational status: disabled Travel in the last 8 weeks: None household members: other housing: detention caffeine: No Review of Systems Review of Systems Review of systems:: unable to obtain Meds Home Medications and Allergies Home Medications ?Medication ?Instructions ?Recorded ?Confirmed ?Type acetaminophen 500 mg tablet 500 mg feeding tube Q4HP PRN MILD 12/24/22 05/17/23 History PAIN/FEVER aspirin 81 mg chewable tablet 81 mg feeding tube DAILY Heart 12/24/22 05/17/23 History health cholecalciferol (vitamin D3) 100 100 mcg feeding tube DAILY 12/24/22 05/17/23 History mcg (4,000 unit) tablet Supplement folic acid 0.8 mg capsule 0.8 mg feeding tube DAILY 12/24/22 05/17/23 History Supplement metoclopramide HCl 5 mg tablet 5 mg feeding tube BID Heartburn 12/24/22 05/17/23 History omeprazole 20 mg capsule,delayed 20 mg feeding tube DAILY Acid 12/24/22 05/17/23 History release reflux potassium chloride 20 mEq/15 mL 20 meq feeding tube BID Supplement 12/24/22 05/17/23 History oral liquid quetiapine 100 mg tablet 100 mg feeding tube 0900,1300 12/24/22 05/17/23 History Dementia WITH BEHAVIORAL DISTURBANCE thiamine HCl (vitamin B1) 100 mg 100 mg feeding tube DAILY 12/24/22 05/17/23 History tablet Supplement valproic acid (as sodium salt) 250 500 mg feeding tube BID Seizure 12/24/22 05/17/23 History mg/5 mL oral solution Lactobacillus acidophilus 1 1,000 mmu cells PO DAILY probiotic 12/25/22 05/17/23 History billion cell capsule melatonin 3 mg tablet 3 mg PO HS Insomnia 12/25/22 05/17/23 History polyethylene glycol 3350 17 17 g PO DAILY constipation 12/25/22 05/17/23 History gram/dose oral powder (Miralax) alprazolam 0.25 mg tablet (Xanax) 0.25 mg PO HS 05/16/24 05/16/24 History doxazosin 1 mg tablet 1 mg feeding tube DAILY 05/16/24 05/16/24 History guaifenesin 50 mg/5 mL oral liquid 150 mg feeding tube BID 05/16/24 05/16/24 History New Prescriptions to Start Prescriptions: Allergies Allergy/AdvReac Type Severity Reaction Status Date / Time No Known Allergies Allergy Verified 05/16/24 12:30 Exam Data for Last 24 hours Vital signs and Labs for Last 24 Hours: Temp Pulse Resp BP Pulse Ox O2 Del Method FiO2 98 F 100 H 16 150/88 H 100 Mechanical Ventilation 50 05/16/24 14:58 05/16/24 14:40 05/16/24 14:41 05/16/24 14:58 05/16/24 14:41 05/16/24 14:41 05/16/24 14:41 Laboratory Results - last 24 hr 05/16/24 14:07: WBC 11.9 H, RBC 4.59 L, Hgb 14.8, Hct 47.5, MCV 103.3 H, MCH 32.2 H, MCHC 31.2 L, RDW 13.6, Plt Count 434 H, MPV 9.6, Neut % (Auto) 69.0, Lymph % (Auto) 20.5, Shoshone % (Auto) 7.4, Eos % (Auto) 2.1, Baso % (Auto) 1.1, Neut # (Auto) 8.2 H, Lymph # (Auto) 2.5, Shoshone # (Auto) 0.9, Eos # (Auto) 0.3, Baso # (Auto) 0.1, Blood Type O Positive, Antibody Screen Negative I & O for Last 24 hours: Intake & Output 05/13/24 05/14/24 05/15/24 05/16/24 23:59 23:59 23:59 23:59 Weight 63.503 kg Constitutional Constitutional: moderate distress, thin, chronically ill appearing and somnolent *Routine HEENT Exam Head: Present normocephalic and atraumatic Eye: Present EOMI and PERRL ENT: Present mucous membranes moist *Routine Neck Exam Neck: Present trachea midline; Absent JVD or lymphadenopathy Comments: ET tube secured *Routine Respiratory Exam Respiratory: Present patient mechanically ventilated, rhonchi, crackles and symmetric chest movement *Routine Cardiovascular Exam Cardiovascular: Present RRR; Absent murmur *Routine Abdominal Exam Abdominal: Present soft and normoactive bowel sounds *Routine Rectal Exam Rectal:: deferred *Routine Genitalia Exam Genitalia:: deferred *Routine Extremities Exam Extremities: Present pulses intact and normal capillary refill; Absent edema *Routine Skin Exam Skin: Present intact Comments: Psoriasis *Routine Neurological Exam Neurological: Present altered mental status; Absent sensory deficit or motor deficit Routine Psychiatric Exam Psychiatric: Present unable to assess Assessment and Plan *Assessment and plan (1) Hemoptysis: Status: Acute Category: Medical Code(s): R04.2 - Hemoptysis (2) Aspiration of foreign body into lower respiratory tract: Status: Acute Category: Medical Code(s): T17.808A - Unspecified foreign body in other parts of respiratory tract causing other injury, initial encounter (3) Flaccid paraplegia: Status: Acute Category: Medical Code(s): G82.20 - Paraplegia, unspecified (4) Cognitive impairment: Status: Acute Category: Medical Code(s): R41.89 - Other symptoms and signs involving cognitive functions and awareness (5) Seizures: Status: Acute Category: Medical Code(s): R56.9 - Unspecified convulsions (6) Dysphagia: Status: Acute Category: Medical Code(s): R13.10 - Dysphagia, unspecified (7) S/P percutaneous endoscopic gastrostomy (PEG) tube placement: Status: Acute Category: Surgical Code(s): Z93.1 - Gastrostomy status (8) Severe protein-calorie malnutrition: Status: Chronic Category: Medical Code(s): E43 - Unspecified severe protein-calorie malnutrition Plan This is a 59-year-old functional paraplegic with chronic dysphagia that resides at [facility] brought to outpatient endoscopy lab for abnormal CT abdomen and pelvis. Gross hemoptysis was noted and cause was identified. Problems addressed as follows: Gross hemoptysis Aspiration of foreign body into lower tract Aspiration pneumonia Postobstructive pneumonia ICU care with continuous telemetry and pulse oximetry monitoring Pulmonology/critical care consult s/p emergent bronchoscopy with foreign body removal (05/16/2024) s/p EGD (05/16/2024) s/p fiberoptic laryngoscopic he (05/16/2024) Trending ABGs MRSA screen Chest x-ray with right lower lobe infiltrate CT chest pending Trending labs and inflammatory markers Foreign body sent to pathology for identification Lisa/Aravind inhalation therapy as needed IV Zosyn Chronic dysphagia s/p PEG placement 2019 N.p.o. status Accurate I's and O's CT abdomen and pelvis pending Esophagitis PPI therapy N.p.o. Severe protein calorie malnutrition Currently in long-term care Trending labs RD consult Complicates all aspects of care Cognitive impairment Functional paraplegia Debility Long-term care resident BMI 19 Goals of care conversation with brother and POA. Poor prognoses discussed The length of stay for this patient will be 2 midnights or greater due to above diagnoses. Total amount of critical care time spent was 35 minutes not counting procedures performed. This time included high complexity decision making to assess and treat vital organ system failure in this patient who has impairment of 1 or more vital organ systems such as there is a high probability of imminent or life-threatening deterioration of the patient's condition. Failure to initi ate the above interventions on an urgent basis would likely result in sudden, clinically significant or life-threatening deterioration in the patient's condition. The patient required my highest level of preparedness to intervene emergently and I personally spent this critical care time directly and personally managing the patient. This critical care time included obtaining a history; examining the patient; frequent vital monitoring including pulse oximetry; ordering and review of studies; arranging urgent treatment with development of a management plan; evaluation of patient's response to treatment; frequent reassessment; and, discussions with other providers (pulmonology, ENT, anesthesia, GI) including ICU staff.
[2024-05-16 15:28] LABS: Appearance,Urine CLEAR (Clear); Bilirubin,Urine Negative (Negative); Blood, Urine Negative (Negative); Color,Urine YELLOW (Yellow); Glucose,Urine (UA) Negative (Negative); Ketones,Urine Negative (Negative); Leukocyte Esterase,Urine Negative (Negative); Nitrate,Urine Negative (Negative); Protein,Urine Negative (Negative); Specific Gravity, Urine 1.015 (1.005-1.030); Urobilinogen,Urine 0.2 EU/dl (0.2)
--- NOTE | 2024-05-16 15:39 | XR_ITS ---
FINAL REPORT CLINICAL HISTORY: CHECK FOR BLEEDING/MD REQUEST COMPARISON: 09/30/2023 FINDINGS: A single portable view of the chest was obtained. An endotracheal tube is present. The heart size and pulmonary vascularity are within normal limits. The mediastinum is within normal limits. Right lung opacities are present, atelectasis versus pneumonia. The bony thorax is intact. IMPRESSION: Right lung opacities, atelectasis versus pneumonia. Reviewed, Interpreted and Dictated by Yuri Troy III, MD Transcribed by Coty Rodriguez Authenticated and [facility]
[2024-05-16 15:48] LABS: Amorphous Sediment,Urine 1+ /lpf; Bacteria,Urine Trace /lpf; Squamous Epithelial Cell,Urine Occasional #/hpf (0-5); WBC,Urine Occasional #/hpf (0-3)
[2024-05-16] MEDS: FENTANYL CITRATE/PF 1,000 MCG in 0.9 % SODIUM CHLORIDE 80 ML 1 MCG IV (15:49)
--- NOTE | 2024-05-16 15:59 | SUR.OPER ---
1255- patient taken to scope room via stretcher for routine EGD with Dr. Kahn. 1300- time out performed prior to procedure. all information relayed correct. all staff present in room agreed. Proceeded with routine EGD. 1305- EGD scope entered into the patients esophagus by Dr Kahn. It was immediately noted that the patient was internally bleeding bright red blood. No obvious signs of the source of the bleed. The blood made it difficult for Dr Kahn to see, EGD scope removed form patients esophagus. Le Angel CRNA suction the patient orally with yankauer tip, bright red blood noted. EGD scope reintroduced with blood visibly draining down into the patients airway. 1306- Patient emergently intubated a the bedside by Le Angel CRNA. a size 7.0 ETT placed, 20 at the lip, confirmed tubed placement by listening to bilateral breath sounds and confirming with change of color to yellow on CO2 detector. 1307- this veneer grader the case called preop staff for extra assistance. 1318- EGD procedure ended 1320- Le Angel CRNA gave verbal orders to staff present in the room to consult ENT since the blood noted in the EGD was not from the upper GI tract. Verbal orders repeated and correct. ENT office called. 1323- Dr Millan, ENT at bedside, verbal order for laryngoscopy equipment to be brought from office 1325-laryngoscopy equipment at bedside, Dr Millan performing procedure at this time. 1326- Respiratory called to room 1327- Dr Millan gave verbal orders for bronch. Verbal order repeated and correct. Bronch equipment being gathered by staff members. 1328- Respiratory at the bedside. Verbal orders given for racemic epi. Verbal orders repeated and correct. Pharmacy called for medication STAT. 1332- racemic epi brought by pharmacy and at bedside. 1335- Annbelen called to come to bedside. 1338- Amber Barnett called to be made aware of situation. Amber to update family. 1339- Peyton OGLESBY at the bedside. 1340-Amber Barnett updating family 1341- Peyton requesting to place patient on the vent. Racemic epi given by Pedro Villegas at this time. 1343- Dr Millan out of room at this time. Peyton still at bedside. 1346-ETT exchanged from a 7.0 to an 8.0 via bougie at the bedside by Le Angel CRNA. Size 8.0 ETT placed at 22 at the lip. 1349- Dr Todd proceeding with bronchoscopy at this time. 1350- Patient placed on ventilator at this time per Dr Todd. Settings 10 peep, rate 26, 100% fio2, volume 420. 1351- Jerrica Martínez RN speaking with Dr Landa, Hospitalist. Making his way to the bedside. 1353- Verbal orders given by Dr todd to give 20 of rocuronium. verbal orders repeated and correct. 20 of rocuronium given by Carmen Saenz CRNA. Dr Landa outside of room speaking with Dr Kahn. 1354- verbal orders given by Dr Landa for a type and screen and Q2 H/H. verbal orders repeated and correct. orders placed. lab notified of orders. 1356- sample preparation supervisor called to come to bedside 1357- Dr Landa speaking to Le Angel CRNA at the bedside. sample preparation supervisor Gilmer also at the bedside at this time. 1359-lab at bedside 1406- verbal orders given by Dr Landa for CT chest/abdomen without contrast. verbal order repeated and correct. order placed. RLL lavage specimens collected. RLL foreign body collected at this time. 1410- Bronchoscopy finished at this time. Peyton leaving bedside. 1412- Orders placed for CT chest/ abdomen with iv contrast. 1420- Patient taken via stretcher to radiology for CT scan on monitor. 4 surgery/outpatient nurses and respiratory with the patient. 1424- 20 gauge IV placed in left forearm. 1429- patient taken from radiology to second floor via stretcher. Patient on monitor during transport. patient escorted by 4 surgery/outpatient surgery RN and respiratory to second floor. 1432- bedside report given to Le Sena RN. Manual blood pressures done bilaterally. R arm BP 150/88, L arm BP 140/90, rectal temp 98.0, 18 fr coude catheter placed. 1450- updated family in second floor waiting room. family speaking with Dr Landa at this time.
[2024-05-16] MEDS: FENTANYL 100MCG/2ML VIAL 50 MCG IV (16:13)
[2024-05-16] MEDS: ROCURONIUM BROMIDE 50MG/5ML VIAL 20 MG IV (16:15)
[2024-05-16] MEDS: PIPERACILLIN/TAZO 4.5 GM in 0.9 % SODIUM CHLORIDE 100 ML IV ×2 (16:25→20:26)
--- NOTE | 2024-05-16 16:32 | SUR.OPER ---
PLEASE NOTE: pt's bronchoscopy that was on reanna tracker for 1529 was performed at the bedside. Pt was on propofol and fent gtt and was being managed by ICU Nurse, Giorgi RN
[2024-05-16] MEDS: 0.9 % SODIUM CHLORIDE 1000ML 1,000 ML 50 ML IV (16:43)
[2024-05-16] MEDS: propofoL 100 ML 28.58 MG IV (17:54)
--- NOTE | 2024-05-16 18:17 | PC.NURSE ---
Pt deeply sedated. Fentanyl infusing @ 70 mcg/hr. Propofol @ 75 mcg/kg/min. IV ABX administered. NS infusing @ 50 ml/hr. Pt has 3 IVs. #20LFA, #20 (L)wrist, #22 (R) wrist. ETT 8.0, 22 cm @ lip. AC, FiO2 70%, R16, TV 420, PEEP 10. #18 Coude placed with urometer .Urine output has been good since placement. No BM. Peg tube noted. Pt has dry,reddened scaly patches to face. SCDs placed on BLE. He is NSR on telemetry. BP is soft. Pt is comfortable and tolerating vent.
--- NOTE | 2024-05-16 19:35 | PC.NURSE ---
Spoke to Dr. Todd at 1905 for patient update. Telephone orders for: H&H, PT/INR, BMP, 500mL LR bolus, turn Propofol to 65mcg/kg/min all to complete now.
[2024-05-16 19:38] LABS: Hematocrit 46.4 % (42.0-52.0); Hemoglobin 14.5 g/dL (14.1-18.0)
[2024-05-16 19:41] LABS: Chloride 109 mmol/L (98-107); Potassium 4.1 mmoL/L (3.5-5.1); Sodium 136 mmol/L (136-145)
[2024-05-16 19:43] LABS: Blood Urea Nitrogen 14 mg/dl (9-20)
[2024-05-16 19:44] LABS: Anion Gap 5.1 mEq/L (5-15); Carbon Dioxide 26 mmol/L (22.0-30.0); Creatinine Clearance Estimated 118 mL/min (50-200); Estimated Glomerular Filt Rate 137 ml/min (>60); GFR (African American) 166 ML/MIN (>60); Glucose 90 mg/dl (74-100)
[2024-05-16 19:45] LABS: INR 1.01 (0.9-1.1); Prothrombin Time 11.3 seconds (10.1-12.5)
[2024-05-16] MEDS: RINGERS SOLUTION,LACTATED 500 ML 999 ML IV (19:47)
[2024-05-16] MEDS: PANTOPRAZOLE 40MG VIAL 40 MG IV (20:26)
[2024-05-16] MEDS: SODIUM CHLORIDE 0.9% 10ML FLUSH SYRINGE 10 ML IV (20:27)
--- NOTE | 2024-05-16 20:31 | PC.NURSE ---
Notified Isamar GUNTER that Valproic Acid is not available hospital wide. Documenting RN instructed to skip medication and pharmacy with dose in AM.
--- NOTE | 2024-05-16 20:42 | PC.NURSE ---
Reported back to Dr. Todd that patient's BP is 83 systolic with MAP 63 after LR bolus. Instructed by MD to started Levophed at 5mcg
[2024-05-16] MEDS: NOREPINEPHRINE BITARTRATE/D5W 8 MG/250 ML PLAST..BAG 9.38 MG IV (20:46)
--- NOTE | 2024-05-16 20:50 | PC.NURSE ---
Spoke to POA/Brother to give update. He voiced no questions or concerns.
--- NOTE | 2024-05-16 20:53 | PC.NURSE ---
RASS Score to be -4 to -[address] Todd. Patient is to have no stimulation or movement throughout night
[2024-05-16] MEDS: propofoL 100 ML 24.77 MG IV (21:25)
[2024-05-16 22:41] LABS: POC Glucose,Bedside 86 (70-110)
[2024-05-16 22:41] LABS: POC Glucose,Bedside 103 (70-110)
[2024-05-17] VITALS (40 sets, daily range): BP systolic 76–140; BP diastolic 45–90; PULSE 45–116; RESP 16–17; TEMP 36.5–38.2; O2SAT 57–100; BMI 21.2
[2024-05-17] MEDS: propofoL 100 ML 24.77 MG IV ×2 (01:24→05:03)
[2024-05-17] MEDS: PIPERACILLIN/TAZO 4.5 GM in 0.9 % SODIUM CHLORIDE 100 ML IV ×4 (03:15→21:09)
[2024-05-17] MEDS: FENTANYL CITRATE/PF 1,000 MCG in 0.9 % SODIUM CHLORIDE 80 ML 7 MCG IV (03:45)
--- NOTE | 2024-05-17 04:49 | PC.NURSE ---
End of shift summary: Patient has remained in deep sedation while mechanically ventilated with RASS -5. Propofol, Fentanyl, Levophed, Maintenance fluids, and IV Zosyn per NOV. Patient is in Assist Control: tV 400, RR 16, PEEP 10, FiO2 70% and tolerated well. ETT remains in place and measures 22cm @ lip. SCDs in place. Patient did not have an OG or NG; however, does have a PEG present. Gastric decompression performed via PEG with 150 mL of coffee ground emesis, likely from the bleeding during his EGD and bronchoscopy on 05/15. Flushed PEG, decompressed once again and then capped PEG off. Lung brown are clear with even chest rise/fall, Heart and abdominal sounds WNL. No signs of pressure injury on assessments. Subpar urinary output via roe. ICU care continued
--- NOTE | 2024-05-17 05:27 | PC.NURSE ---
Weight that was on the IV pump for Propofol dosing did not match accurate bed weight taken by documenting RN. Weight is 77kg, so changed on pump making hourly mL from 25mL to 30mL.
--- NOTE | 2024-05-17 06:00 | XR_ITS ---
FINAL REPORT CLINICAL HISTORY: Intubated on Vent COMPARISON: 05/16/2024 FINDINGS: A single portable view of the chest was obtained. An endotracheal tube remains present. The heart size and pulmonary vascularity are within normal limits. The mediastinum is within normal limits. There are worsening bibasilar opacities, larger on the right than on the left, consistent with worsening pneumonia. The bony thorax is intact. IMPRESSION: Worsening bibasilar opacities, right greater than left, consistent with worsening pneumonia. Reviewed, Interpreted and Dictated by Yuri Troy III, MD Transcribed by Coty Rodriguez Authenticated and . [facility]
[2024-05-17 06:44] LABS: Alanine Aminotransferase 21 U/L (12-78); Albumin Level 2.9 g/dl (3.5-5.0); Albumin/Globulin Ratio 0.8 (1.1-1.8); Alkaline Phosphatase 87 U/L (38-126); Anion Gap 6.1 mEq/L (5-15); Aspartate Amino Transferase 48 U/L (17-59); Bilirubin,Total 0.7 mg/dl (0.2-1.3); Blood Urea Nitrogen 18 mg/dl (9-20); Calcium 8.3 mg/dl (8.4-10.2); Carbon Dioxide 29 mmol/L (22.0-30.0); Chloride 105 mmol/L (98-107); Creatinine Clearance Estimated 143 mL/min (50-200); Estimated Glomerular Filt Rate 137 ml/min (>60); GFR (African American) 166 ML/MIN (>60); Globulin 3.5 g/dL (1.3-3.2); Glucose 97 mg/dl (74-100); INR 1.02 (0.9-1.1); Magnesium 1.7 mg/dl (1.6-2.3); Potassium 4.1 mmoL/L (3.5-5.1); Prothrombin Time 11.4 seconds (10.1-12.5); Sodium 136 mmol/L (136-145); Total Protein,Serum 6.4 g/dl (6.3-8.2)
[2024-05-17 06:51] LABS: ABG HCO3 21.1 mmhg (22.0-26.0); ABG Oxygen Saturation 99 % (90-100); ABG PCO2 31.6 mmhg (35.0-45.0); ABG PH 7.44 mmol/L (7.35-7.45); ABG PO2 157.3 mmhg (80-100); ABG TCO2 22.1 mmhg (23-27); Allen's Test Patient Unable; Oxygen 70 %; PEEP 10; Source Right Radial; Tidal Volume 420; Vent Rate 16
[2024-05-17 06:54] LABS: Basophils # 0.1 K/mm3 (0-0.2); Basophils % 0.6 % (0.1-2.0); C-Reactive Protein 25.5 mg/L (0-4); Eosinophils # 0.2 K/mm3 (0.0-0.4); Eosinophils % 1.6 % (0.1-12.0); Hematocrit 45.2 % (42.0-52.0); Hemoglobin 13.9 g/dL (14.1-18.0); Lymphocytes # 2.3 K/mm3 (0.7-4.5); Lymphocytes % 15.2 % (10-50); Mean Corpuscular HGB Conc 30.7 g/dL (31.8-35.4); Mean Corpuscular Hemoglobin 31.5 pg (27.0-31.2); Mean Corpuscular Volume 102.7 fl (80-94); Mean Platelet Volume 10.4 fl (7.4-10.4); Monocytes # 1.4 K/mm3 (0.1-1.0); Monocytes % 9.2 % (1.7-9.3); Neutrophils # 10.8 K/mm3 (1.8-7.8); Neutrophils % 73.3 % (37.0-80.0); Platelet Count 359 K/mm3 (142-424); Red Cell Distribution Width 13.9 % (11.5-17.5); White Blood Count 14.8 K/mm3 (4.8-10.8)
[2024-05-17 07:00] LABS: Procalcitonin 0.092 ng/mL (0.0-2.0)
--- NOTE | 2024-05-17 07:48 | SW/DCPLANNER ---
Addendum entered by Elidia Linares 05/17/24 13:05: Luzmaria w/ [facility] stated that if patient is medically stable for discharge over the week he is able to return. Original Note: This patient currently resides at [facility] level of care. I will continue to follow up brandon/ Luzmaria at [facility] until patient is medically stable for discharge. Discharge date is unknown at this time.
--- NOTE | 2024-05-17 08:07 | ECG_ITS ---
APPROVED REPORT Exam: Resting ECG HR:43 bpm ECG Measurements Heart Rate 43 AXES KS 178 P 55 QRSd 96 QRS 99 QT 529 T 93 QTc 473 Conclusion SINUS BRADYCARDIA BORDERLINE RIGHT AXIS DEVIATION [QRS AXIS > 90] MODERATE T-WAVE ABNORMALITY, CONSIDER ANTERIOR ISCHEMIA [-0.1+ mV T-WAVE IN V3/V4] ABNORMAL ECG UNCONFIRMED REPORT Electronically signed by : Shiv Hu MD 05/17/2024 17:17:19
[2024-05-17] MEDS: propofoL 100 ML 22.86 MG IV (08:14)
--- NOTE | 2024-05-17 08:23 | PC.NURSE ---
Heart rate decreased to 45 at 0807 with possible rhythm change. EKG obtained, sinus [place]. Dr. Landa notified and propofol decreased to 60 mcg
--- NOTE | 2024-05-17 08:47 | PC.NURSE ---
RESP CARE NOTE: Per Dr Todd verbal order, decrease FIO2 to 50% and PEEP to 8 cmH2O. Sedation decreased to half stregth to initiate weaning protocol. Will continue to monitor patient.
[2024-05-17] MEDS: VALPROIC ACID 250 MG/5 ML SOL UDC 500 MG G-TUBE ×2 (08:50→20:03)
--- NOTE | 2024-05-17 08:50 | HMH.PHAINT1 ---
Pharmacy Intervention Comments: HOME MEDICATION LIST VERIFIED USING LIST FROM CORRECTION
--- NOTE | 2024-05-17 09:36 | P.PN_ITS ---
Subjective *Date: 05/17/24 *Time: 10:51 Pulmonology Exam Inpatient Vital signs and Labs for Last 24 Hours: Temp Pulse Resp BP Pulse Ox O2 Del Method FiO2 98.4 F 54 L 16 113/67 98 Mechanical Ventilation 50 05/17/24 08:00 05/17/24 09:00 05/17/24 09:00 05/17/24 09:00 05/17/24 09:00 05/17/24 09:00 05/17/24 09:00 Laboratory Results - last 24 hr 05/16/24 14:07: WBC 11.9 H, RBC 4.59 L, Hgb 14.8, Hct 47.5, MCV 103.3 H, MCH 32.2 H, MCHC 31.2 L, RDW 13.6, Plt Count 434 H, MPV 9.6, Neut % (Auto) 69.0, Lymph % (Auto) 20.5, [place] % (Auto) 7.4, Eos % (Auto) 2.1, Baso % (Auto) 1.1, Neut # (Auto) 8.2 H, Lymph # (Auto) 2.5, [place] # (Auto) 0.9, Eos # (Auto) 0.3, Baso # (Auto) 0.1, Blood Type O Positive, Antibody Screen Negative 05/16/24 15:00: Urine Color Yellow, Urine Appearance Clear, Urine pH 8.0, Ur Specific [place] 1.015, Urine Protein Negative, Urine Glucose (UA) Negative, Urine Ketones Negative, Urine Blood Negative, Urine Nitrate Negative, Urine Bilirubin Negative, Urine Urobilinogen 0.2, Ur Leukocyte Esterase Negative, Urine RBC None, Urine WBC Occasional, Ur Squamous Epith Cells Occasional, Amorphous Sediment 1+, Urine Bacteria Trace 05/16/24 16:49: POC Glucose 103 05/16/24 19:27: Hgb 14.5, Hct 46.4, PT 11.3, INR 1.01, Sodium 136, Potassium 4.1, Chloride 109 H, Carbon Dioxide 26, Anion Gap 5.1, BUN 14, Creatinine 0.60 L , Estimated Creat Clear 118, Estimated GFR 137, Est GFR ( Amer) 166, Glucose 90, Calcium 8.0 L 05/16/24 22:35: POC Glucose 86 05/17/24 05:16: WBC 14.8 H, RBC 4.40 L, Hgb 13.9 L, Hct 45.2, MCV 102.7 H, MCH 31.5 H, MCHC 30.7 L, RDW 13.9, Plt Count 359, MPV 10.4, Neut % (Auto) 73.3, Lymph % (Auto) 15.2, [place] % (Auto) 9.2, Eos % (Auto) 1.6, Baso % (Auto) 0.6, Neut # (Auto) 10.8 H, Lymph # (Auto) 2.3, [place] # (Auto) 1.4 H, Eos # (Auto) 0.2, Baso # (Auto) 0.1, PT 11.4, INR 1.02, Sodium 136, Potassium 4.1, Chloride 105, Carbon Dioxide 29, Anion Gap 6.1, BUN 18 D, Creatinine 0.60 L, Estimated Creat Clear 143, Estimated GFR 137, Est GFR ( Amer) 166, Glucose 97, Calcium 8.3 L, Magnesium 1.7, Total Bilirubin 0.7, AST 48, ALT 21, Alkaline Phosphatase 87, C-Reactive Protein 25.5 H, Total Protein 6.4 D, Albumin 2.9 L, Globulin 3.5 H, Albumin/Globulin Ratio 0.8 L, Procalcitonin 0.092 05/17/24 06:00: Specimen Source Right radial, O2 % 70, ABG pH 7.44, ABG pCO2 31.6 L, ABG pO2 157.3 H, ABG HCO3 21.1 L, ABG Total CO2 22.1 L, ABG O2 Saturation 99, ABG Base Excess -3.0 L, Syed Test Patient unable, Vent Rate 16, Tidal Volume 420, PEEP 10 Temp Pulse Resp BP Pulse Ox O2 Del Method FiO2 98 F 95 H 16 150/88 H 100 Mechanical Ventilation 50 05/16/24 14:58 05/16/24 12:30 05/16/24 14:41 05/16/24 14:58 05/16/24 14:41 05/16/24 14:41 05/16/24 14:41 Laboratory Results - last 24 hr 05/16/24 14:07: WBC 11.9 H, RBC 4.59 L, Hgb 14.8, Hct 47.5, MCV 103.3 H, MCH 32.2 H, MCHC 31.2 L, RDW 13.6, Plt Count 434 H, MPV 9.6, Neut % (Auto) 69.0, Lymph % (Auto) 20.5, [place] % (Auto) 7.4, Eos % (Auto) 2.1, Baso % (Auto) 1.1, Neut # (Auto) 8.2 H, Lymph # (Auto) 2.5, [place] # (Auto) 0.9, Eos # (Auto) 0.3, Baso # (Auto) 0.1, Blood Type O Positive I & O for Labs for Last 24 Hours: Intake & Output 05/14/24 05/15/24 05/16/24 05/17/24 23:59 23:59 23:59 23:59 Intake Total 1285.930 / 0741.353 9484.769 / 1444.769 Output Total 1030 / 1070 232 / 232 Balance 255.930 / 721.317 4534.769 / 1212.769 Weight 140 lb 170 lb 6.4 oz Intake & Output 05/13/24 05/14/24 05/15/24 05/16/24 23:59 23:59 23:59 23:59 Weight 140 lb Constitutional: Present severe distress Comment:: Intubated and Sedated Head: Present normocephalic and atraumatic ENT: Present normal exam, normal oropharynx and mucous membranes moist Neck: Present normal inspection and full ROM Respiratory: Present patient mechanically ventilated, decreased breath sounds, respiratory distress and rhonchi Cardiac: Present S1/S2, Tachycardia and radial pulses present GI: Present soft and distention; Absent tenderness or guarding Skin: Present intact; Absent cyanosis or jaundice Neuro: Absent alert, awake or oriented x 3 Comment:: Intubated and sedated Extremities: Present normal inspection; Absent clubbing or cyanosis Assessment and Plan *Assessment and plan (1) Hemoptysis: Status: Acute Category: Medical Code(s): R04.2 - Hemoptysis (2) Pneumonia: Status: Resolved Qualifiers: Laterality: right Lung location: lower lobe of lung Pneumonia type: due to unspecified organism Qualified Code(s): J18.9 - Pneumonia, unspecified organism Category: Medical Code(s): J18.9 - Pneumonia, unspecified organism (3) On mechanically assisted ventilation: Status: Acute Category: Medical Code(s): Z99.11 - Dependence on respirator [ventilator] status Plan Mr. Fountain is a 59-year-old skilled nursing resident reported history of recurrent aspiration pneumonia chest x-ray from September did not show any significant airspace disease, most recent sputum cultures from 2021 & 2022 grew Proteus Enterobacter and providentia presented for elective endoscopy started having hemoptysis during the procedure needing intubation and mechanical ventilatory support for airway protection pulmonary was called for further evaluation and management Bronch Air way exam - Hemoptysis likely from RLL. Foreign body removed likely bone/tooth CT chest with contrast - RLL dense consolidation with RML patchy air space disease. Interval update: No Acute respiratory events overnight. Stable ventilator settings. Deeply sed ated. PT/INR within normal limits. H&H stable. Chest x-ray continues show bilateral airspace disease right greater than left. Attempted wean the sedation with worsening coughing, thin blood-tinged s ecretions noted. Will decrease sedation to light sedation. Will hold off on extubating today. Will closely monitor. Plan: -Continue Zosyn pending BAL cultures. No cultures available for review from BLS today. Will send a request from today. Will follow with the lab for specimen -Nasal MRSA PCR positive, will initiate vancomycin -Abdomen soft nontender. Blood-tinged secretions suctioned from NG tube yesterday. No more bloody secretions. Will closely monitor. -BUN/creatinine within normal limits. Oliguria. - Continue mechanical ventilatory support now at PPEP of 10, 420Vt, RR16 and 50% FiO2 - Continue AnalgoSedation with Propofol and Fentanyl . No need for deep sedation - VAP bundle Recommend elevate head of the bed at 30 to 45 degrees Recommend oral care with chlorhexidne Recommend GI ulcer prophylaxis - Famotidine 20mg IV BID Recommend mechanical DVT prophylaxis Total critical care time spent on this patient is 35 minutes managing acute hypoxic respiratory failure needing mechanical ventilation. This time spent include reviewing test results including interpreting chest x-rays, labs and arterial blood gas, optimizing the ventilator settings,formulating plan of care, discussing the plan of care with the team and the nursing staff.
--- NOTE | 2024-05-17 09:53 | EXP.ANES.II ---
[facility] Anesthesia Record Part II Anesthesia Record Part II Discharge Time: 14:58 Destination: Intensive Care Unit PACU nurse assessment reviewed?: Yes Patient Condition:: Critical Anesthesia Complications:: None Swallowing reflex intact?: No Airway Patency: Patent (#8.0 OETT) Cyanosis?: No Blood Pressure: 140/90 SaO2: 100 Respiratory Rate: 16 (CV on vent settings per Dr. Todd: PPEP of 10, 420Vt, RR16 and 100% FiO2) Pulse Rate: 116 Temperature: 98 F Mental Status: Unresponsive (Sedated/chemically paralyzed) Pain level:: 0 Nausea and/or vomitting:: None Intake, IV Amount: 1,300 Hydration: Adequate
--- NOTE | 2024-05-17 09:56 | CA_ITS ---
APPROVED REPORT EXAM: Comprehensive 2D, Doppler, and color-flow Echocardiogram Garbage Truck Driver: Magali Hutchins RT(R) Ht: 6 ft 3 in Wt: 170lbs BSA: 2.05 BP: 131/71 mmHg Indications: bradycardia post EGD, CAD, COPD, on mech ventilation, SOB. Limited windows secondary to positioning and lung impedence. 2D Dimensions EF AP4 47.20 % GL Strain -6.6 % Left Ventricle The left ventricle is normal size. The left ventricular systolic function is hyperdynamic. There is increased LV wall thickness. No regional wall motion abnormalities are noted. The left ventricular diastolic function is normal. LVEF is 70%. Right Ventricle The right ventricle is not very well-visualized, but grossly appears normal in size and function. Atria The left atrium size is normal. The right atrium size is normal. The interatrial septum is not well-visualized. Aortic Valve The aortic valve is mildly thickened. There is no aortic valvular stenosis. No aortic regurgitation is present. Mitral Valve The mitral valve is normal in structure. No evidence of mitral valve stenosis. Trace mitral regurgitation. Tricuspid Valve The tricuspid valve leaflets are thin and pliable. Trace tricuspid regurgitation. There is insufficient TR jet to estimate RVSP. Pulmonic Valve The pulmonic valve is not well-visualized. Great Vessels The aortic root is not well-visualized. The IVC is not well-visualized. Pericardium There is no pericardial effusion. Other Information Study Quality: Technically Difficult Conclusion Technically difficult study due to poor acoustic windows and mechanical ventilation. Hyperdynamic LV systolic function (LVEF 70%). No significant valvular stenosis or regurgitation. Electronically signed by : Bing Butterfield MD 05/17/2024 11:28:08
--- NOTE | 2024-05-17 10:04 | P.CONCA_ITS ---
History of Present Illness History of Present Illness Consult date: 05/17/24 Requesting physician: Phil Landa Consult reason: hypotension Chief complaint: Bradycardia, hypotension Additional Medical History:: 1. 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 G-tube feeding B. Chronic aspiration pneumonia C. Long-term group home patient 2. History of seizure disorder 3. 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 During the procedure hemoptysis was identified from the ET tube. The EGD procedure was completed identifying no esophageal lesions or bleeding, gastric lesions or bleeding or duodenal bleeding. ENT performed an endoscopy and identified no anterior posterior bleeding. They confirmed bleeding from the ET tube. Pulmonology performed an emergent bronchoscopy identifying a foreign object in the right airway tract. It was removed for pathology assessment. His right airway was irrigated and no further bleeding was assessed. He remained intubated and mechanically ventilated and his care was transitioned to the ICU. The patient's history is acquired from his brother and POA and [id number] who is a retired RN. They report that the patient in 2019 was found down at home and his care was subsequently transitioned to the [facility] for care. At concerns with anoxic brain injury, dysphagia were noted and he received a PEG tube and his care was transitioned to long-term care at [facility]. Family reports that he has had a PEG tube since 2019 and has been n.p.o. for greater than a year. He had a complete dental extraction in 2019. They report that he is non-ambulatory. The above per Dr. Landa History obtained from Dr. Landa as patient is currently sedated and intubated. Cardiology consulted due to bradycardia and hypotension which is improving as patient's pulmonary status is improving and he is being weaned off of IV medications with plans for SBT trial today. [facility] Disclaimer: The information contained in this section may have been updated after the patient was seen, as this information can be updated by other users. Medical History (Updated 05/17/24 @ 10:24 by AYLA Huggins) Cognitive impairment Flaccid paraplegia Dysphagia GERD (gastroesophageal reflux disease) COPD (chronic obstructive pulmonary disease) Hemoptysis Seizures Lung nodules Gastrostomy tube in place Surgical History S/P percutaneous endoscopic gastrostomy (PEG) tube placement Hx of esophagogastroduodenoscopy Family History Mother Non Hodgkin's lymphoma Father Lung cancer Social History Smoking Status: Former smoker tobacco type: cigarettes packs per day: 1 years smoked: 30 smoking status stop date: 2018 second hand exposure: No alcohol intake: former substance use type: denies use current occupational status: disabled Travel in the last 8 weeks: None household members: other housing: group home caffeine: No Review of Systems Review of Systems Review of systems:: unable to obtain Exam Data for Last 24 hours Vital signs and Labs for Last 24 Hours: Temp Pulse Resp BP Pulse Ox O2 Del Method FiO2 98.4 F 54 L 16 113/67 98 Mechanical Ventilation 50 05/17/24 08:00 05/17/24 09:00 05/17/24 10:01 05/17/24 09:00 05/17/24 09:00 05/17/24 09:00 05/17/24 09:00 Laboratory Results - last 24 hr 05/16/24 14:07: WBC 11.9 H, RBC 4.59 L, Hgb 14.8, Hct 47.5, MCV 103.3 H, MCH 32.2 H, MCHC 31.2 L, RDW 13.6, Plt Count 434 H, MPV 9.6, Neut % (Auto) 69.0, Lymph % (Auto) 20.5, [place] % (Auto) 7.4, Eos % (Auto) 2.1, Baso % (Auto) 1.1, Neut # (Auto) 8.2 H, Lymph # (Auto) 2.5, [place] # (Auto) 0.9, Eos # (Auto) 0.3, Baso # (Auto) 0.1, Blood Type O Positive, Antibody Screen Negative 05/16/24 15:00: Urine Color Yellow, Urine Appearance Clear, Urine pH 8.0, Ur Specific [place] 1.015, Urine Protein Negative, Urine Glucose (UA) Negative, Urine Ketones Negative, Urine Blood Negative, Urine Nitrate Negative, Urine Bilirubin Negative, Urine Urobilinogen 0.2, Ur Leukocyte Esterase Negative, Urine RBC None, Urine WBC Occasional, Ur Squamous Epith Cells Occasional, Amorphous Sediment 1+, Urine Bacteria Trace 05/16/24 16:49: POC Glucose 103 05/16/24 19:27: Hgb 14.5, Hct 46.4, PT 11.3, INR 1.01, Sodium 136, Potassium 4.1, Chloride 109 H, Carbon Dioxide 26, Anion Gap 5.1, BUN 14, Creatinine 0.60 L , Estimated Creat Clear 118, Estimated GFR 137, Est GFR ( Amer) 166, Glucose 90, Calcium 8.0 L 05/16/24 22:35: POC Glucose 86 05/17/24 05:16: WBC 14.8 H, RBC 4.40 L, Hgb 13.9 L, Hct 45.2, MCV 102.7 H, MCH 31.5 H, MCHC 30.7 L, RDW 13.9, Plt Count 359, MPV 10.4, Neut % (Auto) 73.3, Lymph % (Auto) 15.2, [place] % (Auto) 9.2, Eos % (Auto) 1.6, Baso % (Auto) 0.6, Neut # (Auto) 10.8 H, Lymph # (Auto) 2.3, [place] # (Auto) 1.4 H, Eos # (Auto) 0.2, Baso # (Auto) 0.1, PT 11.4, INR 1.02, Sodium 136, Potassium 4.1, Chloride 105, Carbon Dioxide 29, Anion Gap 6.1, BUN 18 D, Creatinine 0.60 L, Estimated Creat Clear 143, Estimated GFR 137, Est GFR ( Amer) 166, Glucose 97, Calcium 8.3 L, Magnesium 1.7, Total Bilirubin 0.7, AST 48, ALT 21, Alkaline Phosphatase 87, C-Reactive Protein 25.5 H, Total Protein 6.4 D, Albumin 2.9 L, Globulin 3.5 H, Albumin/Globulin Ratio 0.8 L, Procalcitonin 0.092 05/17/24 06:00: Specimen Source Right radial, O2 % 70, ABG pH 7.44, ABG pCO2 31.6 L, ABG pO2 157.3 H, ABG HCO3 21.1 L, ABG Total CO2 22.1 L, ABG O2 Saturation 99, ABG Base Excess -3.0 L, Syed Test Patient unable, Vent Rate 16, Tidal Volume 420, PEEP 10 I & O for Last 24 hours: Intake & Output 05/14/24 05/15/24 05/16/24 05/17/24 11:59 11:59 11:59 11:59 Intake Total 4037.404 / 4037.404 Output Total 1262 / 1262 Balance 2775.404 / 2775.404 Weight 170 lb 6.4 oz Constitutional Comments: Sedated and intubated on mechanical ventilation *Routine Respiratory Exam Respiratory: Present patient mechanically ventilated *Routine Cardiovascular Exam Cardiovascular: Present RRR; Absent murmur, gallop or rubs *Routine Extremities Exam Extremities: Absent edema Meds Home Medications and Allergies Home Medications ?Medication ?Instructions ?Recorded ?Confirmed ?Type acetaminophen 500 mg tablet 500 mg feeding tube Q4HP PRN Fever 12/24/22 05/16/24 History Or Pain aspirin 81 mg chewable tablet 81 mg feeding tube DAILY 12/24/22 05/16/24 History cholecalciferol (vitamin D3) 100 100 mcg feeding tube DAILY 12/24/22 05/16/24 History mcg (4,000 unit) tablet folic acid 0.8 mg capsule 0.8 mg feeding tube DAILY 12/24/22 05/16/24 History metoclopramide HCl 5 mg tablet 5 mg feeding tube BID 12/24/22 05/16/24 History omeprazole 20 mg capsule,delayed 20 mg feeding tube DAILY 12/24/22 05/16/24 History release potassium chloride 20 mEq/15 mL 20 meq feeding tube BID 12/24/22 05/16/24 History oral liquid quetiapine 100 mg tablet 50 mg feeding tube TID 12/24/22 05/17/24 History thiamine HCl (vitamin B1) 100 mg 100 mg feeding tube DAILY 12/24/22 05/16/24 History tablet valproic acid (as sodium salt) 250 500 mg feeding tube BID 12/24/22 05/16/24 History mg/5 mL oral solution Lactobacillus acidophilus 1 1,000 mmu cells PO DAILY 12/25/22 05/16/24 History billion cell capsule melatonin 3 mg tablet 3 mg PO HS 04/22/23 09/11/24 History polyethylene glycol 3350 17 17 g PO DAILY 12/25/22 05/16/24 History gram/dose oral powder (Miralax) alprazolam 0.25 mg tablet (Xanax) 0.25 mg PO HS 05/16/24 05/16/24 History doxazosin 1 mg tablet 1 mg feeding tube DAILY 05/16/24 05/16/24 History guaifenesin 50 mg/5 mL oral liquid 150 mg feeding tube BID 05/16/24 05/16/24 History New Prescriptions to Start Prescriptions: Allergies Allergy/AdvReac Type Severity Reaction Status Date / Time No Known Allergies Allergy Verified 05/16/24 12:30 Assessment and Plan *Assessment and plan (1) Aspiration of foreign body into lower respiratory tract: Status: Acute Category: Medical Code(s): T17.808A - Unspecified foreign body in other parts of respiratory tract causing other injury, initial encounter (2) Hemoptysis: Status: Acute Category: Medical Code(s): R04.2 - Hemoptysis (3) Hypotension: Status: Acute Qualifiers: Hypotension type: postprocedural hypotension Qualified Code(s): I95.81 - Postprocedural hypotension Category: Medical Code(s): I95.9 - Hypotension, unspecified (4) Bradycardia: Status: Acute Category: Medical Code(s): R00.1 - Bradycardia, unspecified (5) On mechanically assisted ventilation: Status: Acute Category: Medical Code(s): Z99.11 - Dependence on respirator [ventilator] status (6) Flaccid paraplegia: Status: Acute Category: Medical Code(s): G82.20 - Paraplegia, unspecified (7) Cognitive impairment: Status: Acute Category: Medical Code(s): R41.89 - Other symptoms and signs involving cognitive functions and awareness (8) Seizures: Status: Acute Category: Medical Code(s): R56.9 - Unspecified convulsions (9) Dysphagia: Status: Acute Qualifiers: Dysphagia type: unspecified Qualified Code(s): R13.10 - Dysphagia, unspecified Category: Medical Code(s): R13.10 - Dysphagia, unspecified (10) S/P percutaneous endoscopic gastrostomy (PEG) tube placement: Status: Acute Category: Surgical Code(s): Z93.1 - Gastrostomy status (11) Wernicke-Korsakoff syndrome (alcoholic): Status: Chronic Category: Medical Code(s): F10.96 - Alcohol use, 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 Bradycardia and hypotension likely related to multiple procedures requiring sedation yesterday. bradycardia is improving Hypotension is improving Hemoglobin stable around 14 with normal platelet count BUN normal with creatinine 0.6 Due to history of reported cardiac arrest, would recommend checking echocardiogram to evaluate left ventricular ejection fraction 2. History of MARCY/TBI with paraplegia Chronic dysphagia G-tube in place 3. Hemoptysis secondary to foreign body aspiration (tooth) Resolved 4. Intubation/mechanical ventilation for protection of airway due to hemoptysis during EGD procedure Status post bronchoscopy with subsequent foreign body removal Pulmonary managing Check echocardiogram Further recommendations to follow Echo Conclusion: Technically difficult study due to poor acoustic windows and mechanical ventilation. Hyperdynamic LV systolic function (LVEF 70%). No significant valvular stenosis or regurgitation. Electronically signed by : Bing Butterfield MD 05/17/2024 11:28:08 Continue to follow when off BP support meds and sedation meds. No need for pacemaker at this time. May need calcium channel karli for hyperdynamic ejection fraction in the future.
--- NOTE | 2024-05-17 10:52 | PC.NURSE ---
1019 patient started to cough and heart rate increased to 120's. Dr. swain at bedside and et tube suctioned three times, secretions bloody and thick. Secretions around et tube clear. Respiratory notified. Sedation increased per Dr. Todd order.
--- NOTE | 2024-05-17 10:54 | HMH.PTWOUND ---
Rehab Inpt Wound Evaluation Rehab IP Wound Evaluation Start: 05/16/24 17:02 Freq: ONCE Status: Active Protocol: Document 05/17/24 10:52 LAUREN (Rec: 05/17/24 10:54 LAUREN [id number]) Rehab PT Wound Assessment Subjective Subjective 59 yowm adm to [facility] after requiring intubation after EGD was performed. Pt is non- ambulatory at baseline and is a SNF resident. PT wound consult was entered per written protocol as pt had a low blanca score. Currently he has no open wounds and has no need for debridement at this time. Thank you for involving the wound care team in the treatment of this pt. PHYSICIAN CERTIFICATION: I certify the specified therapy services for Dean Fountain are required, authorized, and reviewed every 30 days.
[2024-05-17] MEDS: 0.9 % SODIUM CHLORIDE 1000ML 1,000 ML 50 ML IV (11:02)
[2024-05-17 11:13] LABS: POC Glucose,Bedside 102 (70-110)
--- NOTE | 2024-05-17 11:47 | PC.NURSE ---
Patient turned from left side-lying position to back
--- NOTE | 2024-05-17 14:31 | DIET.NUTRFU ---
Patient's chart reviewed and spoke to nurse at [facility] to review TF regimen. At he is on Jevity 1.5@ 65ml/hr x20 hours to provided 100% nutrition providing 1950kcal, 88gm protein. Based on CBW of 77kg, nutritional needs are 1920-2100kcal, 77-92gm protein and 1500-1700ml. Today nursing had to suction patient multiple times, pulmonary doctor would like him laying flat. Unable to start TF at this time due to increased risk of aspiration secondary to positioning. Start Jevity 1.2 when medically feasible. During his stay TF will be Jevity 1.2 at 20ml/hr increase 10ml Q4H as tolerated with goal rate of 65ml/hr x20 hours. Add reglan once start TF, he has hx of high residuals and takes reglan at [facility]. Flush is dependent on NaCl. Currently intubated with propofol running which may affect TF rate if continued.
[2024-05-17] MEDS: propofoL 100 ML 5.72 MG IV (16:15)
[2024-05-17] MEDS: ACETAMINOPHEN 325MG/10.15ML UDC 1000 MG G-TUBE (16:45)
[2024-05-17 16:49] LABS: POC Glucose,Bedside 95 (70-110)
--- NOTE | 2024-05-17 16:50 | EXP.PN ---
Subjective *Date: 05/17/24 *Time: 16:50 Interval history: The patient is seen and examined at bedside. No family is at bedside. I am accompanied by his nursing staff and respiratory therapy. Nursing staff report that he remains afebrile with stable vital signs and saturating appropriately on his current vent settings. His morning ABG identified a PF ratio of 224. His morning CBC identified WBC 14.8 with stable hemoglobin 13.9 normal hematocrit and platelets 359. His electrolytes, BUN and creatinine were normal. His magnesium was 1.7. His procalcitonin was normal. Pulmonology continues to follow. Exam Data for Last 24 hours Vital signs and Labs for Last 24 Hours: Temp Pulse Resp BP Pulse Ox O2 Del Method FiO2 100.8 F H 80 16 107/60 L 100 Mechanical Ventilation 50 05/17/24 16:00 05/17/24 16:00 05/17/24 16:00 05/17/24 16:00 05/17/24 16:00 05/17/24 16:00 05/17/24 16:00 Laboratory Results - last 24 hr 05/16/24 16:49: POC Glucose 103 05/16/24 19:27: Hgb 14.5, Hct 46.4, PT 11.3, INR 1.01, Sodium 136, Potassium 4.1, Chloride 109 H, Carbon Dioxide 26, Anion Gap 5.1, BUN 14, Creatinine 0.60 L, Estimated Creat Clear 118, Estimated GFR 137, Est GFR ( Amer) 166, Glucose 90, Calcium 8.0 L 05/16/24 22:35: POC Glucose 86 05/17/24 05:16: WBC 14.8 H, RBC 4.40 L, Hgb 13.9 L, Hct 45.2, MCV 102.7 H, MCH 31.5 H, MCHC 30.7 L, RDW 13.9, Plt Count 359, MPV 10.4, Neut % (Auto) 73.3, Lymph % (Auto) 15.2, [place] % (Auto) 9.2, Eos % (Auto) 1.6, Baso % (Auto) 0.6, Neut # (Auto) 10.8 H, Lymph # (Auto) 2.3, [place] # (Auto) 1.4 H, Eos # (Auto) 0.2, Baso # (Auto) 0.1, PT 11.4, INR 1.02, Sodium 136, Potassium 4.1, Chloride 105, Carbon Dioxide 29, Anion Gap 6.1, BUN 18 D, Creatinine 0.60 L, Estimated Creat Clear 143, Estimated GFR 137, Est GFR ( Amer) 166, Glucose 97, Calcium 8.3 L, Magnesium 1.7, Total Bilirubin 0.7, AST 48, ALT 21, Alkaline Phosphatase 87, C-Reactive Protein 25.5 H, Total Protein 6.4 D, Albumin 2.9 L, Globulin 3.5 H, Albumin/Globulin Ratio 0.8 L, Procalcitonin 0.092 05/17/24 06:00: Specimen Source Right radial, O2 % 70, ABG pH 7.44, ABG pCO2 31.6 L, ABG pO2 157.3 H, ABG HCO3 21.1 L, ABG Total CO2 22.1 L, ABG O2 Saturation 99, ABG Base Excess -3.0 L, Syed Test Patient unable, Vent Rate 16, Tidal Volume 420, PEEP 10 05/17/24 10:25: POC Glucose 102 05/17/24 16:10: POC Glucose 95 I & O for Last 24 hours: Intake & Output 05/14/24 05/15/24 05/16/24 05/17/24 23:59 23:59 23:59 23:59 Intake Total 1285.930 / 1962.304 5774.393 / 3170.393 Output Total 1030 / 1070 322 / 322 Balance 255.930 / 267.648 5058.393 / 2848.393 Weight 63.503 kg 77.29 kg Microbiology Reports for the Last 24 Hours: Microbiology 05/16/24 15:45 Bronchial Washings - Right Lower Lobe Gram Stain - Final 05/16/24 15:15 Nose - Nasal MRSA Culture - Final Constitutional Constitutional: no acute distress, chronically ill appearing and somnolent *Routine HEENT Exam Head: Present normocephalic Eye: Present conjunctivae pink ENT: Present mucous membranes moist *Routine Neck Exam Neck: Absent JVD or lymphadenopathy *Routine Respiratory Exam Respiratory: Present patient mechanically ventilated *Routine Cardiovascular Exam Cardiovascular: Present RRR *Routine Abdominal Exam Abdominal: Present soft and normoactive bowel sounds *Routine Extremities Exam Extremities: Absent edema *Routine Skin Exam Skin: Present intact; Absent rash *Routine Neurological Exam Neurological: Present altered mental status Routine Psychiatric Exam Psychiatric: Present unable to assess Assessment and Plan *Assessment and plan (1) Hemoptysis: Status: Acute Category: Medical Code(s): R04.2 - Hemoptysis (2) Aspiration of foreign body into lower respiratory tract: Status: Acute Category: Medical Code(s): T17.808A - Unspecified foreign body in other parts of respiratory tract causing other injury, initial encounter (3) Flaccid paraplegia: Status: Acute Category: Medical Code(s): G82.20 - Paraplegia, unspecified (4) Cognitive impairment: Status: Acute Category: Medical Code(s): R41.89 - Other symptoms and signs involving cognitive functions and awareness (5) Seizures: Status: Acute Category: Medical Code(s): R56.9 - Unspecified convulsions (6) Dysphagia: Status: Acute Qualifiers: Dysphagia type: unspecified Qualified Code(s): R13.10 - Dysphagia, unspecified Category: Medical Code(s): R13.10 - Dysphagia, unspecified (7) S/P percutaneous endoscopic gastrostomy (PEG) tube placement: Status: Acute Category: Surgical Code(s): Z93.1 - Gastrostomy status (8) Severe protein-calorie malnutrition: Status: Chronic Category: Medical Code(s): E43 - Unspecified severe protein-calorie malnutrition Plan This is a 59-year-old functional paraplegic with chronic dysphagia that resides at [facility] brought to outpatient endoscopy lab for abnormal CT abdomen and pelvis. Gross hemoptysis was noted and cause was identified and item (tooth) sent for pathology assessment. Problems addressed as follows: Gross hemoptysis Aspiration of foreign body into lower tract Aspiration pneumonia Postobstructive pneumonia ICU care with continuous telemetry and pulse oximetry monitoring Pulmonology/critical care consult s/p emergent bronchoscopy with foreign body removal (05/16/2024) s/p EGD (05/16/2024) s/p fiberoptic laryngoscopic he (05/16/2024) Trending ABGs MRSA screen is positive Chest x-ray with right lower lobe infiltrate CT chest: Bilateral pneumonia right greater than left persistent chronic consolidation bilateral lower lobes Trending labs and inflammatory markers Foreign body sent to pathology for identification Lisa/Aravind inhalation therapy as needed IV Zosyn IV vancomycin Drug therapy requiring intensive monitoring for toxicity Routine peak and trough Chronic dysphagia s/p PEG placement 2018 N.p.o. status Accurate I's and O's CT abdomen and pelvis: G-tube present, bladder wall thickening?mild, right renal cyst, left renal stone Esophagitis PPI therapy N.p.o. Severe protein calorie malnutrition Currently in long-term care Trending labs RD consult Complicates all aspects of care Cognitive impairment Functional paraplegia Debility Long-term care resident BMI 19 Goals of care conversation with brother and POA. Poor prognoses discussed The patient is hospitalized day 1 with above diagnoses. We appreciate quantitative consultant evaluation, procedural interventions and ongoing care recommendations. Case management is assisting with discharge planning including return to long-term care. Barriers to discharge currently include intubated and mechanically ventilated state with routine assessments for hemoptysis. Expected date of discharge cannot be determined at present time. Total amount of critical care time spent was 35 minutes not counting procedures performed. This time included high complexity decision making to assess and treat vital organ system failure in this patient who has impairment of 1 or more vital organ systems such as there is a high probability of imminent or life-threatening deterioration of the patient's condition. Failure to initiate the above interventions on an urgent basis would likely result in sudden, clinically significant or life-threatening deterioration in the patient's condition. The patient required my highest level of preparedness to intervene emergently and I personally spent this critical care time directly and personally managing the patient. This critical care time included obtaining a history; examining the patient; frequent vital monitoring including pulse oximetry; ordering and review of studies; arranging urgent treatment with development of a management plan; evaluation of patient's response to treatment; frequent reassessment; and, discussions with other providers (pulmonology) including ICU staff.
--- NOTE | 2024-05-17 16:58 | PC.NURSE ---
Patient unable to tolerate movement during shift, when stimulated patient's oxygenation will drop to 80's and copious secretions are present. VS stable when relaxed. Levo on standby at 1600 and propofol weaned to 15, fentanyl to 20. Urine output between 10-20 mls per hour. Right side lower lobe diminished. Tylenol given for fever through peg tube, tolerated well. Secretions blood tinged in et tube.
--- NOTE | 2024-05-17 17:31 | PC.NURSE ---
[facility] contacted for vanc dosing
[2024-05-17] MEDS: VANCOMYCIN/WATER FOR INJ (PEG) 1.75 GM/350 ML PIGGYBACK IV (18:05)
[2024-05-17] MEDS: PANTOPRAZOLE 40MG VIAL 40 MG IV (20:04)
[2024-05-17] MEDS: METOCLOPRAMIDE 5MG TABLET 5 MG FEED TUBE (20:04)
[2024-05-17] MEDS: propofoL 100 ML 11.43 MG IV (23:35)
[2024-05-18] VITALS (35 sets, daily range): BP systolic 84–130; BP diastolic 49–77; PULSE 54–110; RESP 14–23; TEMP 36.9–37.8; O2SAT 90–100; BMI 21.7
[2024-05-18] MEDS: VANCOMYCIN HCL 1,000 MG in 0.9 % SODIUM CHLORIDE 250 ML 125 MG IV ×2 (02:05→11:50)
[2024-05-18] MEDS: PIPERACILLIN/TAZO 4.5 GM in 0.9 % SODIUM CHLORIDE 100 ML IV ×4 (04:24→21:18)
[2024-05-18 04:29] LABS: POC Glucose,Bedside 92 (70-110)
[2024-05-18 04:29] LABS: POC Glucose,Bedside 102 (70-110)
[2024-05-18] MEDS: FENTANYL CITRATE/PF 1,000 MCG in 0.9 % SODIUM CHLORIDE 80 ML 4 MCG IV (04:35)
[2024-05-18 06:35] LABS: Basophils # 0.1 K/mm3 (0-0.2); Basophils % 0.7 % (0.1-2.0); Eosinophils # 0.4 K/mm3 (0.0-0.4); Eosinophils % 4.2 % (0.1-12.0); Hemoglobin 11.8 g/dL (14.1-18.0); Lymphocytes # 2.3 K/mm3 (0.7-4.5); Lymphocytes % 23.3 % (10-50); Mean Corpuscular HGB Conc 31.1 g/dL (31.8-35.4); Mean Corpuscular Hemoglobin 31.9 pg (27.0-31.2); Mean Corpuscular Volume 102.7 fl (80-94); Mean Platelet Volume 9.5 fl (7.4-10.4); Monocytes % 10.7 % (1.7-9.3); Neutrophils # 5.9 K/mm3 (1.8-7.8); Neutrophils % 61.1 % (37.0-80.0); Platelet Count 333 K/mm3 (142-424); Red Cell Distribution Width 13.9 % (11.5-17.5); White Blood Count 9.7 K/mm3 (4.8-10.8)
[2024-05-18 06:40] LABS: Alanine Aminotransferase 15 U/L (12-78); Albumin Level 2.3 g/dl (3.5-5.0); Albumin/Globulin Ratio 0.8 (1.1-1.8); Alkaline Phosphatase 73 U/L (38-126); Anion Gap 5.7 mEq/L (5-15); Aspartate Amino Transferase 39 U/L (17-59); Bilirubin,Total 0.5 mg/dl (0.2-1.3); Blood Urea Nitrogen 15 mg/dl (9-20); Calcium 7.4 mg/dl (8.4-10.2); Carbon Dioxide 23 mmol/L (22.0-30.0); Chloride 112 mmol/L (98-107); Creatinine Clearance Estimated 126 mL/min (50-200); Estimated Glomerular Filt Rate 115 ml/min (>60); GFR (African American) 139 ML/MIN (>60); Globulin 2.9 g/dL (1.3-3.2); Glucose 90 mg/dl (74-100); Magnesium 1.6 mg/dl (1.6-2.3); Sodium 138 mmol/L (136-145); Total Protein,Serum 5.2 g/dl (6.3-8.2)
[2024-05-18 07:00] LABS: Potassium 2.7 mmoL/L (3.5-5.1)
--- NOTE | 2024-05-18 07:01 | PC.NURSE ---
Received critical result from lab. Patient k+ 2.7
--- NOTE | 2024-05-18 07:57 | P.CONPHA_ITS ---
Pharmacy Consult Date: 05/18/24 Time: 07:57 Referring provider: DR. PETIT Reason for Consult:: VANCOMYCIN DOSING Allergies Allergy/AdvReac Type Severity Reaction Status Date / Time No Known Allergies Allergy Verified 05/16/24 12:30 Home Medications ?Medication ?Instructions ?Recorded ?Confirmed ?Type acetaminophen 500 mg tablet 500 mg feeding tube Q4HP PRN Fever 12/24/22 05/16/24 History Or Pain aspirin 81 mg chewable tablet 81 mg feeding tube DAILY 12/24/22 05/16/24 History cholecalciferol (vitamin D3) 100 100 mcg feeding tube DAILY 12/24/22 05/16/24 History mcg (4,000 unit) tablet folic acid 0.8 mg capsule 0.8 mg feeding tube DAILY 12/24/22 05/16/24 History metoclopramide HCl 5 mg tablet 5 mg feeding tube BID 12/24/22 05/16/24 History omeprazole 20 mg capsule,delayed 20 mg feeding tube DAILY 12/24/22 05/16/24 History release potassium chloride 20 mEq/15 mL 20 meq feeding tube BID 12/24/22 05/16/24 History oral liquid quetiapine 100 mg tablet 50 mg feeding tube TID 12/24/22 05/17/24 History thiamine HCl (vitamin B1) 100 mg 100 mg feeding tube DAILY 12/24/22 05/16/24 History tablet valproic acid (as sodium salt) 250 500 mg feeding tube BID 12/24/22 05/16/24 History mg/5 mL oral solution Lactobacillus acidophilus 1 1,000 mmu cells PO DAILY 12/25/22 05/16/24 History billion cell capsule melatonin 3 mg tablet 3 mg PO HS 12/25/22 05/16/24 History polyethylene glycol 3350 17 17 g PO DAILY 12/25/22 05/16/24 History gram/dose oral powder (Miralax) alprazolam 0.25 mg tablet (Xanax) 0.25 mg PO HS 05/16/24 05/16/24 History doxazosin 1 mg tablet 1 mg feeding tube DAILY 05/16/24 05/16/24 History guaifenesin 50 mg/5 mL oral liquid 150 mg feeding tube BID 05/16/24 05/16/24 History New Prescriptions to Start Prescriptions: Height: 1.91 m Weight: 79.107 kg Laboratory Results:: Laboratory Results - last 24 hr 05/17/24 04:09: POC Glucose 92 05/17/24 10:25: POC Glucose 102 05/17/24 16:10: POC Glucose 95 05/17/24 22:13: POC Glucose 102 05/18/24 05:25: WBC 9.7 D, RBC 3.70 L, Hgb 11.8 L, Hct 38.0 L, MCV 102.7 H, MCH 31.9 H, MCHC 31.1 L, RDW 13.9, Plt Count 333, MPV 9.5, Neut % (Auto) 61.1, Lymph % (Auto) 23.3, Mcintosh % (Auto) 10.7 H, Eos % (Auto) 4.2, Baso % (Auto) 0.7, Neut # (Auto) 5.9, Lymph # (Auto) 2.3, Mcintosh # (Auto) 1.0, Eos # (Auto) 0.4, Baso # (Auto) 0.1, Sodium 138, Potassium 2.7 L* D, Chloride 112 H, Carbon Dioxide 23, Anion Gap 5.7, BUN 15, Creatinine 0.70, Estimated Creat Clear 126, Estimated GFR 115, Est GFR ( Amer) 139, Glucose 90, Calcium 7.4 L, Magnesium 1.6, Total Bilirubin 0.5, AST 39, ALT 15 D, Alkaline Phosphatase 73, Total Protein 5.2 L, Albumin 2.3 L D, Globulin 2.9, Albumin/Globulin Ratio 0.8 L Medical History: Medical History (Updated 05/17/24 @ 10:24 by AYLA Huggins) Cognitive impairment Flaccid paraplegia Dysphagia GERD (gastroesophageal reflux disease) COPD (chronic obstructive pulmonary disease) Hemoptysis Seizures Lung nodules Gastrostomy tube in place Assessment and Plan Assessment and plan all Dx Assessment and Plan for all problems:: Pharmacokinetic dosing service Objective: Patient: Floor: Age: 59 yo Serum creatinine: 1 mg/dL Height: 75.2 Inches Weight (kg): 79.1 Diagnosis: Relevant medical/social history: Cultures and sensitivities: Other labs: Assessment: IBW (kg): 84.96 Dosing wt(kg): 79.1 Estimated Creatinine clearance (ml/min): 87.9 CRCL method: Cockcroft and Gault using ibw(default). Drug selected: Vancomycin Loading dose (mg): 0 Vd (liters): 63.3 (factor used: 0.8 L/kg) Issa (hr-1): 0.077 Half life (hrs): 9.00 Recommended dose: 1250 mg Interval: 12 hrs Infusion time (hrs): 2.0 Predicted peak (mcg/mL): 30.3 Predicted trough (mcg/mL): 14.03 Total body weight is being used for vancomycin dosing. Recommendations: Give Vancomycin 1250 mg q 12 hrs with an expected Cpeak of 30.3 mcg/ml and an expected Ctrough of 14.03 mcg/ml ----Vanco only - ignore for aminoglycosides----- CLvanco= 4.87 L/hr AUC 0-24 /KATHERIN Data: KATHERIN 0.5 mcg/mL: AUC/KATHERIN: 1026.7 KATHERIN 1.0 mcg/mL: AUC/KATHERIN: 513.3 --------- KATHERIN 1.5 mcg/mL: AUC/KATHERIN: 342.2 KATHERIN 2.0 mcg/mL: AUC/KATHERIN: 256.7
--- NOTE | 2024-05-18 09:29 | EXP.PULM.PN ---
Subjective *Date: 05/18/24 *Time: 11:49 Interval history: No acute respiratory events. Pulmonology Exam Inpatient Vital signs and Labs for Last 24 Hours: Temp Pulse Resp BP Pulse Ox O2 Del Method O2 Flow Rate 98.7 F 76 16 117/68 98 Mechanical Ventilation 98 05/18/24 08:00 05/18/24 07:00 05/18/24 07:00 05/18/24 07:00 05/18/24 07:00 05/18/24 07:00 05/18/24 08:00 FiO2 50 05/18/24 08:00 Laboratory Results - last 24 hr 05/17/24 04:09: POC Glucose 92 05/17/24 10:25: POC Glucose 102 05/17/24 16:10: POC Glucose 95 05/17/24 22:13: POC Glucose 102 05/18/24 05:25: WBC 9.7 D, RBC 3.70 L, Hgb 11.8 L, Hct 38.0 L, MCV 102.7 H, MCH 31.9 H, MCHC 31.1 L, RDW 13.9, Plt Count 333, MPV 9.5, Neut % (Auto) 61.1, Lymph % (Auto) 23.3, Mcpherson % (Auto) 10.7 H, Eos % (Auto) 4.2, Baso % (Auto) 0.7, Neut # (Auto) 5.9, Lymph # (Auto) 2.3, Mcpherson # (Auto) 1.0, Eos # (Auto) 0.4, Baso # (Auto) 0.1, Sodium 138, Potassium 2.7 L* D, Chloride 112 H, Carbon Dioxide 23, Anion Gap 5.7, BUN 15, Creatinine 0.70, Estimated Creat Clear 126, Estimated GFR 115, Est GFR ( Amer) 139, Glucose 90, Calcium 7.4 L, Magnesium 1.6, Total Bilirubin 0.5, AST 39, ALT 15 D, Alkaline Phosphatase 73, Total Protein 5.2 L, Albumin 2.3 L D, Globulin 2.9, Albumin/Globulin Ratio 0.8 L Temp Pulse Resp BP Pulse Ox O2 Del Method FiO2 98 F 95 H 16 150/88 H 100 Mechanical Ventilation 50 05/16/24 14:58 05/16/24 12:30 05/16/24 14:41 05/16/24 14:58 05/16/24 14:41 05/16/24 14:41 05/16/24 14:41 Laboratory Results - last 24 hr 05/16/24 14:07: WBC 11.9 H, RBC 4.59 L, Hgb 14.8, Hct 47.5, MCV 103.3 H, MCH 32.2 H, MCHC 31.2 L, RDW 13.6, Plt Count 434 H, MPV 9.6, Neut % (Auto) 69.0, Lymph % (Auto) 20.5, Mcpherson % (Auto) 7.4, Eos % (Auto) 2.1, Baso % (Auto) 1.1, Neut # (Auto) 8.2 H, Lymph # (Auto) 2.5, Mcpherson # (Auto) 0.9, Eos # (Auto) 0.3, Baso # (Auto) 0.1, Blood Type O Positive I & O for Labs for Last 24 Hours: Intake & Output 05/15/24 05/16/24 05/17/24 05/18/24 23:59 23:59 23:59 23:59 Intake Total 1285.930 / 7314.961 4211.897 / 4478.897 1001.271 / 1001.271 Output Total 1030 / 1070 587 / 712 328 / 328 Balance 255.930 / 386.454 3974.897 / 3766.897 673.271 / 673.271 Weight 140 lb 170 lb 6.324 oz 174 lb 6.4 oz Intake & Output 05/13/24 05/14/24 05/15/24 05/16/24 23:59 23:59 23:59 23:59 Weight 140 lb Microbiology Reports for the Last 24 Hours: Microbiology 05/16/24 15:45 Bronchial Washings - Right Lower Lobe Gram Stain - Final 05/16/24 15:15 Nose - Nasal MRSA Culture - Final Constitutional: Present severe distress Comment:: Intubated and Sedated Head: Present normocephalic and atraumatic ENT: Present normal exam, normal oropharynx and mucous membranes moist Neck: Present normal inspection and full ROM Respiratory: Present patient mechanically ventilated, decreased breath sounds, respiratory distress and rhonchi Cardiac: Present S1/S2, Tachycardia and radial pulses present GI: Present soft and distention; Absent tenderness or guarding Skin: Present intact; Absent cyanosis or jaundice Neuro: Absent alert, awake or oriented x 3 Comment:: Intubated and sedated Extremities: Present normal inspection; Absent clubbing or cyanosis Assessment and Plan *Assessment and plan (1) Hemoptysis: Status: Acute Category: Medical Code(s): R04.2 - Hemoptysis (2) Pneumonia: Status: Resolved Qualifiers: Laterality: right Lung location: lower lobe of lung Pneumonia type: due to unspecified organism Qualified Code(s): J18.9 - Pneumonia, unspecified organism Category: Medical Code(s): J18.9 - Pneumonia, unspecified organism (3) On mechanically assisted ventilation: Status: Acute Category: Medical Code(s): Z99.11 - Dependence on respirator [ventilator] status Plan Mr. Fountain is a 59-year-old senior living resident reported history of recurrent aspiration pneumonia chest x-ray from September did not show any significant airspace disease, most recent sputum cultures from 2021 & 2022 grew Proteus Enterobacter and providentia presented for elective endoscopy started having hemoptysis during the procedure needing intubation and mechanical ventilatory support for airway protection pulmonary was called for further evaluation and management Bronch Air way exam - Hemoptysis likely from RLL. Foreign body removed likely bone/tooth CT chest with contrast on this admission- RLL dense consolidation with RML patchy air space disease. Upon reviewing patient's CT scan concerning right lower lobe foreign body appears to be present dating back to his CT scans from 2019. It appears that his recurrent right lower lobe pneumonia is likely postobstructive from foreign body than resurrent aspiration pneumonia. CT scan from 2018 did not show the concerning foreign body. Nasal MRSA PCR positive Interval update: No acute respiratory vents overnight. Stable ventilator settings. No evidence hemoptysis. Oliguric MERI. Chest x-ray increased vascular congestion, will give 40 of IV Lasix Hemoglobin stable Continue to receive vancomycin and Zosyn pending bronchoscopy culture results. Plan: -Continue vancomycin and Zosyn pending BAL cultures. -Abdomen tense, nondistended. Significant stool burden on his CT abdomen. Nontender. -BUN/creatinine within normal limits. Oliguria. Hypokalemia, replating - Continue mechanical ventilatory support now at PPEP of 8, 420Vt, RR16 and 30% FiO2, wean sedation to facilitate SBT - Continue AnalgoSedation with Propofol and Fentanyl . No need for deep sedation - VAP bundle Recommend elevate head of the bed at 30 to 45 degrees Recommend oral care with chlorhexidne Recommend GI ulcer prophylaxis - Famotidine 20mg IV BID Recommend mechanical DVT prophylaxis Total critical care time spent on this patient is 35 minutes managing acute hypoxic respiratory failure needing mechanical ventilation. This time spent include reviewing test results including interpreting chest x-rays, labs and arterial blood gas, optimizing the ventilator settings,formulating plan of care, discussing the plan of care with the team and the nursing staff.
--- NOTE | 2024-05-18 09:30 | XR_ITS ---
FINAL REPORT CLINICAL HISTORY: Pneumonia COMPARISON: 05/17/2024 FINDINGS: A single portable view of the chest was obtained. An endotracheal tube remains in place. The heart size and pulmonary vascularity are within normal limits. The mediastinum is within normal limits. There are worsening bibasilar opacities which are worrisome for worsening pneumonia. The bony thorax is intact. IMPRESSION: Worsening bibasilar opacities, worrisome for worsening pneumonia. Reviewed, Interpreted and Dictated by Yuri Troy III, MD Transcribed by Chelo Gonzalez Authenticated and [facility]
[2024-05-18] MEDS: MAGNESIUM SULFATE IN WATER 2 GM/50 ML PIGGYBACK IV ×2 (09:53→11:35)
[2024-05-18] MEDS: POTASSIUM CHLORIDE 20MEQ/15ML UDC 40 MEQ G-TUBE ×3 (10:00→21:18)
[2024-05-18] MEDS: VALPROIC ACID 250 MG/5 ML SOL UDC 500 MG G-TUBE ×2 (10:06→21:18)
[2024-05-18] MEDS: METOCLOPRAMIDE 5MG TABLET 5 MG FEED TUBE ×2 (10:06→21:18)
[2024-05-18] MEDS: FUROSEMIDE 40MG/4ML VIAL 40 MG IV (10:39)
[2024-05-18 11:04] LABS: POC Glucose,Bedside 104 (70-110)
[2024-05-18] MEDS: 0.9 % SODIUM CHLORIDE 1000ML 1,000 ML 50 ML IV (11:38)
--- NOTE | 2024-05-18 14:02 | PC.NURSE ---
pt extubated by Nelly in [place] at 1342. Dr Quintanilla, Dr Todd, Dr Anna at bedside for extubation. pt placed on 2lpm
--- NOTE | 2024-05-18 14:03 | DIET.NUTRFU ---
Patient was extubated and anticipate starting TF later today. Start Jevity 1.2 at 20ml/hr increase 10ml Q4H as tolerated with goal rate of 65ml/hr x20 hours. reglan was restarted to help with TF tolerance. He also only tolerates TF [id number], once goal rate is reached his stomach needs rest to prevent high residuals. Minimal flush well IVF continues at 50ml TID , increase to 200ml TID to meet hydration needs.
--- NOTE | 2024-05-18 15:19 | P.PN_ITS ---
Subjective *Date: 05/18/24 *Time: 19:11 Interval history: Initially on vent this morning on rounds. Transitioned to SBT. If does well, anticipate extubation. White cell count showing improvement, 9.7 today. No bowel movement since admission. Has been off Levophed for over 12 hours. Urine output decreased initially, improved after diuresis. Afebrile overnight. Hemoptysis improving in ET tube Medical Exam Vital signs and Labs for Last 24 Hours: Vital Signs Temp Pulse Pulse Resp BP Pulse Ox O2 Del Method 05/18/24 15:00 108 H 18 127/67 94 L Nasal Cannula 05/18/24 14:00 103 H 20 128/70 91 L Room Air 05/18/24 13:15 22 96 05/18/24 13:00 92 H 21 130/77 95 Mechanical Ventilation 05/18/24 13:00 Mechanical Ventilation 05/18/24 12:00 95 H 05/18/24 12:00 99.4 F 05/18/24 12:00 99.4 F 05/18/24 12:00 91 H 18 121/73 90 L Mechanical Ventilation 05/18/24 12:00 94 L 05/18/24 11:50 92 H 91 L Mechanical Ventilation 05/18/24 11:40 100.0 F H 05/18/24 11:28 92 H 16 119/71 92 L Mechanical Ventilation 05/18/24 11:12 Mechanical Ventilation 05/18/24 10:15 22 98 05/18/24 10:09 83 20 107/63 L 97 Mechanical Ventilation 05/18/24 09:00 Mechanical Ventilation 05/18/24 09:00 66 16 97/51 L 97 Mechanical Ventilation 05/18/24 08:00 65 05/18/24 08:00 98 Mechanical Ventilation 05/18/24 08:00 75 16 108/61 L 98 Mechanical Ventilation 05/18/24 08:00 05/18/24 08:00 98.7 F 05/18/24 07:45 73 97 Mechanical Ventilation 05/18/24 07:30 73 16 107/65 L 98 Mechanical Ventilation 05/18/24 07:00 76 16 117/68 98 Mechanical Ventilation 05/18/24 07:00 Mechanical Ventilation 05/18/24 06:00 67 16 101/62 L 98 Mechanical Ventilation 05/18/24 05:51 16 100 05/18/24 05:00 57 L 16 97/56 L 98 Mechanical Ventilation 05/18/24 05:00 Mechanical Ventilation 05/18/24 04:00 56 L 05/18/24 04:00 Mechanical Ventilation 05/18/24 04:00 98.6 F 67 16 107/68 L 99 Mechanical Ventilation 05/18/24 03:00 54 L 16 108/55 L 99 Mechanical Ventilation 05/18/24 03:00 Mechanical Ventilation 05/18/24 02:00 16 97 05/18/24 02:00 60 16 106/61 L 98 Mechanical Ventilation 05/18/24 01:00 55 L 16 93/57 L 95 Mechanical Ventilation 05/18/24 01:00 Mechanical Ventilation 05/18/24 00:00 Mechanical Ventilation 05/18/24 00:00 59 L 05/18/24 00:00 98.4 F 60 16 84/49 L 97 Mechanical Ventilation 05/17/24 23:00 63 16 89/52 L 96 Mechanical Ventilation 05/17/24 23:00 Mechanical Ventilation 05/17/24 22:00 16 97 05/17/24 22:00 66 16 94/53 L 95 Mechanical Ventilation 05/17/24 21:00 83 16 95/58 L 97 Mechanical Ventilation 05/17/24 21:00 Mechanical Ventilation 05/17/24 20:00 62 05/17/24 20:00 99.0 F 62 16 95/56 L 95 Mechanical Ventilation 05/17/24 19:12 17 96 05/17/24 19:00 66 16 85/54 L 96 Room Air 05/17/24 18:40 Mechanical Ventilation 05/17/24 18:00 77 16 97/58 L 100 Mechanical Ventilation 05/17/24 17:00 84 16 114/71 100 Mechanical Ventilation 05/17/24 17:00 Mechanical Ventilation 05/17/24 16:00 Mechanical Ventilation 05/17/24 16:00 70 05/17/24 16:00 100.8 F H 80 16 107/60 L 100 Mechanical Ventilation 05/17/24 15:20 16 100 05/17/24 15:20 100 Mechanical Ventilation O2 Flow Rate FiO2 05/18/24 15:00 2 05/18/24 14:00 05/18/24 13:15 30 05/18/24 13:00 30 05/18/24 13:00 05/18/24 12:00 05/18/24 12:00 05/18/24 12:00 05/18/24 12:00 30 05/18/24 12:00 30 05/18/24 11:50 30 05/18/24 11:40 05/18/24 11:28 30 05/18/24 11:12 05/18/24 10:15 30 05/18/24 10:09 30 05/18/24 09:00 05/18/24 09:00 50 05/18/24 08:00 05/18/24 08:00 50 05/18/24 08:00 50 05/18/24 08:00 98 50 05/18/24 08:00 05/18/24 07:45 50 05/18/24 07:30 50 05/18/24 07:00 05/18/24 07:00 05/18/24 06:00 50 05/18/24 05:51 50 05/18/24 05:00 05/18/24 05:00 05/18/24 04:00 05/18/24 04:00 05/18/24 04:00 50 05/18/24 03:00 50 05/18/24 03:00 05/18/24 02:00 50 05/18/24 02:00 50 05/18/24 01:00 50 05/18/24 01:00 05/18/24 00:00 50 05/18/24 00:00 05/18/24 00:00 50 05/17/24 23:00 50 05/17/24 23:00 05/17/24 22:00 50 05/17/24 22:00 50 05/17/24 21:00 50 05/17/24 21:00 05/17/24 20:00 05/17/24 20:00 50 05/17/24 19:12 50 05/17/24 19:00 05/17/24 18:40 05/17/24 18:00 05/17/24 17:00 50 05/17/24 17:00 05/17/24 16:00 50 05/17/24 16:00 05/17/24 16:00 50 05/17/24 15:20 50 05/17/24 15:20 50 Intake and Output 05/17/24 05/18/24 05/18/24 23:59 07:59 15:59 Intake Total 1442.135 / 4478.897 876.391 / 1511.351 634.960 / 1511.351 Output Total 275 / 712 300 / 3173 2873 / 3173 Balance 1167.135 / 3766.897 576.391 / -1661.649 -2238.040 / -1661.649 Intake: Intake, Tube Irrigant Amount 50 / 90 100 / 100 Intake, Total IV Amount 1392.135 / 3915.897 876.391 / 1411.351 534.960 / 1411.351 0.9 % Sodium Chloride 1000ML 1, 501 / 864 309 / 461 152 / 461 000 ml @ 50 mls/hr IV .Q20H PARDEEP Rx#:[id number] Fentanyl Citrate/Pf 1,000 mcg 46 / 132 38 / 38 In 0.9 % Sodium Chloride 80 ml @ 20 MCG/HR 2 mls/hr IV .Q24H [facility]DEEP Rx#:[id number] Magnesium Sulfate in Water 2 gm 144 / 144 In 50 ml @ 50 mls/hr IV Q1H [facility]DEEP Rx#:[id number] Piperacillin/Tazo 4.5 gm In 0.9 200 / 400 100 / 200 100 / 200 % Sodium Chloride 100 ml @ 200 mls/hr IV Q6H [facility]DEEP Rx#:[id number] Vancomycin HCl 1,000 mg In 0.9 350 / 350 250 / 373 123 / 373 % Sodium Chloride 250 ml @ 125 mls/hr IV Q8H [facility]DEEP Rx#:[id number] propofoL 100 ml @ 8 MCG/KG/MIN 185 / 266 87 / 87 3.048 mls/hr IV .Q24H PARDEEP Rx#: [id number] Output: Output, Urine Amount 2873 / 2873 Output, Urine Amount (Catheter) 275 / 652 300 / 300 Encarnacion 275 / 652 300 / 300 Other: Number of Unmeasured Voids 0 0 Weight 79.107 kg Patient Weight 05/18/24 23:59 Weight 79.107 kg Laboratory Results - last 24 hr 05/17/24 04:09: POC Glucose 92 05/17/24 16:10: POC Glucose 95 05/17/24 22:13: POC Glucose 102 05/18/24 05:25: WBC 9.7 D, RBC 3.70 L, Hgb 11.8 L, Hct 38.0 L, MCV 102.7 H, MCH 31.9 H, MCHC 31.1 L, RDW 13.9, Plt Count 333, MPV 9.5, Neut % (Auto) 61.1, Lymph % (Auto) 23.3, Stanly % (Auto) 10.7 H, Eos % (Auto) 4.2, Baso % (Auto) 0.7, Neut # (Auto) 5.9, Lymph # (Auto) 2.3, Stanly # (Auto) 1.0, Eos # (Auto) 0.4, Baso # (Auto) 0.1, Sodium 138, Potassium 2.7 L* D, Chloride 112 H, Carbon Dioxide 23, Anion Gap 5.7, BUN 15, Creatinine 0.70, Estimated Creat Clear 126, Estimated GFR 115, Est GFR ( Amer) 139, Glucose 90, Calcium 7.4 L, Magnesium 1.6, Total Bilirubin 0.5, AST 39, ALT 15 D, Alkaline Phosphatase 73, Total Protein 5.2 L, Albumin 2.3 L D, Globulin 2.9, Albumin/Globulin Ratio 0.8 L 05/18/24 09:51: POC Glucose 104 I & O for Labs for Last 24 Hours: Intake & Output 05/15/24 05/16/24 05/17/24 05/18/24 23:59 23:59 23:59 23:59 Intake Total 1285.930 / 8929.578 7427.897 / 4478.897 1511.351 / 1511.351 Output Total 1030 / 1070 587 / 712 3173 / 3173 Balance 255.930 / 815.863 9467.897 / 3766.897 -1661.649 / -1661.649 Weight 63.503 kg 77.29 kg 79.107 kg Microbiology Reports for the Last 24 Hours: Microbiology 05/16/24 15:45 Bronchial Washings - Right Lower Lobe Gram Stain - Final Constitutional: Present mild distress, thin and chronically ill appearing Head: Present atraumatic and normocephalic ENT: Present normal exam Respiratory: Present rhonchi, crackles and normal respiratory effort; Absent wheezes Cardiac: Present Tachycardia GI: Present soft and normal bowel sounds; Absent distention or tenderness Extremities: Present normal inspection and full ROM Comment:: thin Skin: Present intact; Absent erythema Neuro: Present alert and moves all extremities Assessment and Plan *Assessment and plan (1) Hemoptysis: Status: Acute Category: Medical Code(s): R04.2 - Hemoptysis (2) Aspiration of foreign body into lower respiratory tract: Status: Acute Category: Medical Code(s): T17.808A - Unspecified foreign body in other parts of respiratory tract causing other injury, initial encounter (3) Flaccid paraplegia: Status: Acute Category: Medical Code(s): G82.20 - Paraplegia, unspecified (4) Cognitive impairment: Status: Acute Category: Medical Code(s): R41.89 - Other symptoms and signs involving cognitive functions and awareness (5) Seizures: Status: Acute Category: Medical Code(s): R56.9 - Unspecified convulsions (6) Dysphagia: Status: Acute Qualifiers: Dysphagia type: unspecified Qualified Code(s): R13.10 - Dysphagia, unspecified Category: Medical Code(s): R13.10 - Dysphagia, unspecified (7) S/P percutaneous endoscopic gastrostomy (PEG) tube placement: Status: Acute Category: Surgical Code(s): Z93.1 - Gastrostomy status (8) Severe protein-calorie malnutrition: Status: Chronic Category: Medical Code(s): E43 - Unspecified severe protein-calorie malnutrition Plan This is a 59-year-old functional paraplegic with chronic dysphagia that resides at [facility] brought to outpatient endoscopy lab for abnormal CT abdomen and pelvis. Gross hemoptysis was noted and cause was identified and item (tooth) sent for pathology assessment. Responding to SBT this morning. Plan for extubation. Remains afebrile. Stable off pressors. Continuing IV antibiotics. Pulmonology assisting with care. Problems addressed as follows: Gross hemoptysis Aspiration of foreign body into lower tract Aspiration pneumonia Postobstructive pneumonia Extubated after morning rounds. Continue ICU level of care pending stability after extubation for 24 hours. Pulmonology/critical care consult s/p emergent bronchoscopy with foreign body removal (05/16/2024) s/p EGD (05/16/2024) s/p fiberoptic laryngoscopic he (05/16/2024) MRSA screen positive. Continue vancomycin IV and Zosyn IV. Chest x-ray with right lower lobe infiltrate -Foreign body identified as tooth. -Continue DuoNebs every 6 hours scheduled Drug therapy requiring intensive monitoring for toxicity Chronic dysphagia Severe protein calorie malnutrition s/p PEG placement 2019, N.p.o. status Accurate I's and O's CT abdomen and pelvis: G-tube present, bladder wall thickening?mild, right renal cyst, left renal stone Resume G-tube feeds today. Nutrition assisting with care and adjustments to tube feeds daily. Potassium low at 2.7, magnesium 1.6. Replace with 40 mEq 3 times a day per G- tube. Will replace magnesium IV with 4 g. Repeat labs ordered for this afternoon with BMP and magnesium. Repeat CBC, CMP, magnesium ordered for the morning. Esophagitis PPI therapy. Cognitive impairment Functional paraplegia Debility Long-term care resident BMI 19 Goals of care conversation with brother and POA. Poor prognoses discussed The patient is hospitalized day 2 with above diagnoses. We appreciate intelligence consultant evaluation, procedural interventions and ongoing care recommendations. Case management is assisting with discharge planning including return to long-term care. Barriers to discharge currently include intubated and mechanically ventilated state with routine assessments for hemoptysis. Expected date of discharge cannot be determined at present time. Total amount of critical care time spent was 35 minutes not counting procedures performed. This time included high complexity decision making to assess and treat vital organ system failure in this patient who has impairment of 1 or more vital organ systems such as there is a high probability of imminent or life-threatening deterioration of the patient's condition. Failure to initiate the above interventions on an urgent basis would likely result in sudden, clinically significant or life-threatening deterioration in the patient's condition. The patient required my highest level of preparedness to intervene emergently and I personally spent this critical care time directly and personally managing the patient. This critical care time included obtaining a history; examining the patient; frequent vital monitoring including pulse oximetry; ordering and review of studies; arranging urgent treatment with development of a management plan; evaluation of patient's response to treatment; frequent reassessment; and, discussions with other providers (pulmonology) including ICU staff.
[2024-05-18 16:22] LABS: Chloride 104 mmol/L (98-107); Potassium 4.2 mmoL/L (3.5-5.1); Sodium 139 mmol/L (136-145)
[2024-05-18 16:25] LABS: Anion Gap 11.2 mEq/L (5-15); Blood Urea Nitrogen 12 mg/dl (9-20); Calcium 8.3 mg/dl (8.4-10.2); Carbon Dioxide 28 mmol/L (22.0-30.0); Creatinine Clearance Estimated 126 mL/min (50-200); Estimated Glomerular Filt Rate 115 ml/min (>60); GFR (African American) 139 ML/MIN (>60); Glucose 109 mg/dl (74-100)
[2024-05-18 16:29] LABS: POC Glucose,Bedside 101 (70-110)
[2024-05-18] MEDS: ACETAMINOPHEN 325MG/10.15ML UDC 1000 MG G-TUBE (17:48)
[2024-05-18] MEDS: POLYETHYLENE GLYCOL 3350 17 GM PACKET G-TUBE (17:51)
--- NOTE | 2024-05-18 18:17 | PC.NURSE ---
Pt was extubated at 1342 and placed on 2 lpm. pt vocal quality has become stronger and less raspy as the shift progressed. pt lung sounds are diminished with scattered wheezes and rhonchi noted. bowel sounds are hypoactive. abd is slightly taught feeling. tube feedings started at 1745. pt axillary temp was noted to be 99.5, pt occasionally says owe but when asked where he hurts, pt is unable to articulate where. pt is alert to self only. scuds in place, trace edema noted.
[2024-05-18] MEDS: PHA TO NURSING INSTRUCTION 1 EACH NOTAPPLIC (20:33)
--- NOTE | 2024-05-18 20:45 | PC.NURSE ---
Residual 30cc, Tube feed turned up to 30cc/hr.
[2024-05-18] MEDS: PANTOPRAZOLE 40MG VIAL 40 MG IV (21:18)
[2024-05-18] MEDS: SODIUM CHLORIDE 0.9% 10ML VIAL 10 ML IV (21:18)
[2024-05-18 21:28] LABS: Vancomycin,Trough 17.9 ug/mL (5.0-10.0)
--- NOTE | 2024-05-18 21:55 | PC.NURSE ---
spoke with [facility], notified of vanc trough 17.9. States to give scheduled dose of vanc 1.25 now.
[2024-05-18] MEDS: VANCOMYCIN/WATER FOR INJ (PEG) 1.25 GM/250 ML PIGGYBACK IV (22:00)
[2024-05-18 23:15] LABS: POC Glucose,Bedside 105 (70-110)
[2024-05-18 23:15] LABS: POC Glucose,Bedside 88 (70-110)
[2024-05-19] VITALS (14 sets, daily range): BP systolic 109–152; BP diastolic 57–85; PULSE 72–100; RESP 14–24; TEMP 36.6–37.4; O2SAT 90–97; BMI 20.7
[2024-05-19 01:53] LABS: Vancomycin,Peak 34.2 ug/ml (11-39)
[2024-05-19] MEDS: ACETAMINOPHEN 325MG/10.15ML UDC 1000 MG G-TUBE (03:38)
[2024-05-19] MEDS: PIPERACILLIN/TAZO 4.5 GM in 0.9 % SODIUM CHLORIDE 100 ML IV ×4 (03:38→21:47)
--- NOTE | 2024-05-19 06:46 | PC.NURSE ---
Pt a/o x1. Pt c/o generalized pain 1x during shift and tylenol was administered per NOV. Tube feeding @ 30cc/hr, tolerating well. Encarnacion in place draining yellow/green urine. Total 550ml urine output during shift. Lung sounds diminished in bilat lung bases and right upper lobe. Pt has been q2 turned and oral care administered. Seizure pads on bed. Bed alarm on. Call light within reach.
[2024-05-19 07:24] LABS: Basophils # 0.1 K/mm3 (0-0.2); Basophils % 0.8 % (0.1-2.0); Eosinophils # 0.3 K/mm3 (0.0-0.4); Eosinophils % 3.9 % (0.1-12.0); Hematocrit 41.2 % (42.0-52.0); Lymphocytes # 1.8 K/mm3 (0.7-4.5); Lymphocytes % 24.4 % (10-50); Mean Corpuscular HGB Conc 31.7 g/dL (31.8-35.4); Mean Corpuscular Hemoglobin 31.7 pg (27.0-31.2); Mean Corpuscular Volume 100.3 fl (80-94); Mean Platelet Volume 8.9 fl (7.4-10.4); Monocytes % 13.8 % (1.7-9.3); Neutrophils # 4.3 K/mm3 (1.8-7.8); Neutrophils % 57.2 % (37.0-80.0); Platelet Count 428 K/mm3 (142-424); Red Blood Count 4.11 M/mm3 (4.60-6.20); Red Cell Distribution Width 13.9 % (11.5-17.5); White Blood Count 7.6 K/mm3 (4.8-10.8)
[2024-05-19 07:31] LABS: Alanine Aminotransferase 20 U/L (12-78); Albumin/Globulin Ratio 0.8 (1.1-1.8); Alkaline Phosphatase 72 U/L (38-126); Anion Gap 5.6 mEq/L (5-15); Aspartate Amino Transferase 45 U/L (17-59); Bilirubin,Total 0.8 mg/dl (0.2-1.3); Blood Urea Nitrogen 12 mg/dl (9-20); Calcium 8.3 mg/dl (8.4-10.2); Carbon Dioxide 28 mmol/L (22.0-30.0); Chloride 110 mmol/L (98-107); Creatinine Clearance Estimated 140 mL/min (50-200); Estimated Glomerular Filt Rate 137 ml/min (>60); GFR (African American) 166 ML/MIN (>60); Globulin 3.6 g/dL (1.3-3.2); Glucose 141 mg/dl (74-100); Potassium 3.6 mmoL/L (3.5-5.1); Sodium 140 mmol/L (136-145); Total Protein,Serum 6.6 g/dl (6.3-8.2)
[2024-05-19] MEDS: VALPROIC ACID 250 MG/5 ML SOL UDC 500 MG G-TUBE ×2 (08:12→21:47)
[2024-05-19] MEDS: METOCLOPRAMIDE 5MG TABLET 5 MG FEED TUBE ×2 (08:12→21:47)
[2024-05-19 09:17] LABS: Magnesium 2.2 mg/dl (1.6-2.3)
[2024-05-19] MEDS: ACETAMINOPHEN 325MG/10.15ML UDC 975 MG G-TUBE ×2 (09:40→22:08)
--- NOTE | 2024-05-19 09:53 | P.CONPHA_ITS ---
Pharmacy Consult Date: 05/19/24 Time: 09:53 Referring provider: DR. PETIT Reason for Consult:: VANCOMYCIN LEVELS Allergies Allergy/AdvReac Type Severity Reaction Status Date / Time No Known Allergies Allergy Verified 05/16/24 12:30 Home Medications ?Medication ?Instructions ?Recorded ?Confirmed ?Type acetaminophen 500 mg tablet 500 mg feeding tube Q4HP PRN Fever 12/24/22 05/16/24 History Or Pain aspirin 81 mg chewable tablet 81 mg feeding tube DAILY 12/24/22 05/16/24 History cholecalciferol (vitamin D3) 100 100 mcg feeding tube DAILY 12/24/22 05/16/24 History mcg (4,000 unit) tablet folic acid 0.8 mg capsule 0.8 mg feeding tube DAILY 12/24/22 05/16/24 History metoclopramide HCl 5 mg tablet 5 mg feeding tube BID 12/24/22 05/16/24 History omeprazole 20 mg capsule,delayed 20 mg feeding tube DAILY 12/24/22 05/16/24 History release potassium chloride 20 mEq/15 mL 20 meq feeding tube BID 12/24/22 05/16/24 History oral liquid quetiapine 100 mg tablet 50 mg feeding tube TID 12/24/22 05/17/24 History thiamine HCl (vitamin B1) 100 mg 100 mg feeding tube DAILY 12/24/22 05/16/24 History tablet valproic acid (as sodium salt) 250 500 mg feeding tube BID 12/24/22 05/16/24 History mg/5 mL oral solution Lactobacillus acidophilus 1 1,000 mmu cells PO DAILY 12/25/22 05/16/24 History billion cell capsule melatonin 3 mg tablet 3 mg PO HS 12/25/22 05/16/24 History polyethylene glycol 3350 17 17 g PO DAILY 12/25/22 05/16/24 History gram/dose oral powder (Miralax) alprazolam 0.25 mg tablet (Xanax) 0.25 mg PO HS 05/16/24 05/16/24 History doxazosin 1 mg tablet 1 mg feeding tube DAILY 05/16/24 05/16/24 History guaifenesin 50 mg/5 mL oral liquid 150 mg feeding tube BID 05/16/24 05/16/24 History New Prescriptions to Start Prescriptions: Height: 1.91 m Weight: 75.614 kg Laboratory Results:: Laboratory Results - last 24 hr 09/13/24 04:28: POC Glucose 88 05/18/24 09:51: POC Glucose 104 05/18/24 16:10: Sodium 139, Potassium 4.2 D, Chloride 104, Carbon Dioxide 28, Anion Gap 11.2, BUN 12, Creatinine 0.70, Estimated Creat Clear 126, Estimated GFR 115, Est GFR ( Amer) 139, Glucose 109 H D, Calcium 8.3 L 05/18/24 16:20: POC Glucose 101 05/18/24 20:15: Vancomycin Trough 17.9 H 05/18/24 21:52: POC Glucose 105 05/19/24 01:00: Vancomycin Peak 34.2 05/19/24 06:40: WBC 7.6, RBC 4.11 L, Hgb 13.0 L, Hct 41.2 L, MCV 100.3 H, MCH 31.7 H, MCHC 31.7 L, RDW 13.9, Plt Count 428 H D, MPV 8.9, Neut % (Auto) 57.2, Lymph % (Auto) 24.4, [place] % (Auto) 13.8 H, Eos % (Auto) 3.9, Baso % (Auto) 0.8, Neut # (Auto) 4.3, Lymph # (Auto) 1.8, [place] # (Auto) 1.0, Eos # (Auto) 0.3, Baso # (Auto) 0.1, Sodium 140, Potassium 3.6, Chloride 110 H, Carbon Dioxide 28, Anion Gap 5.6, BUN 12, Creatinine 0.60 L, Estimated Creat Clear 140, Estimated GFR 137, Est GFR ( Amer) 166, Glucose 141 H D, Calcium 8.3 L, Magnesium 2.2 D, Total Bilirubin 0.8, AST 45, ALT 20 D, Alkaline Phosphatase 72, Total Protein 6.6 D, Albumin 3.0 L D, Globulin 3.6 H, Albumin/Globulin Ratio 0.8 L Medical History: Medical History (Updated 05/17/24 @ 10:24 by AYLA Huggins) Cognitive impairment Flaccid paraplegia Dysphagia GERD (gastroesophageal reflux disease) COPD (chronic obstructive pulmonary disease) Hemoptysis Seizures Lung nodules Gastrostomy tube in place Assessment and Plan Assessment and plan all Dx Assessment and Plan for all problems:: PATIENT'S VANCOMYCIN LEVELS WERE 17.9 MCG/ML AND 34.2 MCG/ML FOR TROUGH AND PEAK, RESPECTIVELY. RECOMMEND CONTINUING WITH CURRENT DOSE AND INTERVAL OF VANCOMYCIN 1250 MG Q12H AT THIS TIME.
[2024-05-19] MEDS: VANCOMYCIN/WATER FOR INJ (PEG) 1.25 GM/250 ML PIGGYBACK IV ×2 (10:02→21:47)
--- NOTE | 2024-05-19 10:34 | P.PN_ITS ---
Subjective *Date: 05/19/24 *Time: 10:34 Medical Exam Vital signs and Labs for Last 24 Hours: Vital Signs Temp Pulse Pulse Resp BP BP Pulse Ox 05/19/24 09:00 05/19/24 08:06 05/19/24 08:00 98.7 F 88 20 121/68 94 L 05/19/24 07:00 88 20 130/66 97 05/19/24 06:42 05/19/24 06:00 90 24 130/74 95 05/19/24 05:00 95 H 15 124/69 92 L 05/19/24 04:53 05/19/24 04:00 96 H 05/19/24 04:00 93 L 05/19/24 04:00 98.7 F 97 H 15 134/76 93 L 05/19/24 03:00 05/19/24 03:00 97 H 18 121/66 92 L 05/19/24 02:00 100 H 14 111/60 93 L 05/19/24 01:00 93 H 16 118/67 95 05/19/24 00:53 05/19/24 00:00 99 H 05/19/24 00:00 98.9 F 99 H 22 109/57 L 95 05/19/24 00:00 93 L 05/18/24 23:55 93 L 05/18/24 23:00 96 H 16 115/60 93 L 05/18/24 22:58 05/18/24 22:00 95 H 18 106/55 L 96 05/18/24 21:00 94 H 14 111/68 95 05/18/24 20:49 05/18/24 20:00 91 H 05/18/24 20:00 96 05/18/24 20:00 87 23 103/57 L 96 05/18/24 19:00 94 H 22 102/58 L 96 05/18/24 18:39 05/18/24 18:00 99.5 F 102 H 18 124/72 95 05/18/24 17:06 05/18/24 17:00 106 H 18 125/73 96 05/18/24 16:30 99.1 F 05/18/24 16:20 101 H 95 05/18/24 16:10 94 L 05/18/24 16:00 110 H 05/18/24 16:00 96 H 18 117/69 94 L 05/18/24 15:40 05/18/24 15:00 108 H 18 127/67 94 L 05/18/24 14:00 103 H 20 128/70 91 L 05/18/24 13:15 22 96 05/18/24 13:00 92 H 21 130/77 95 05/18/24 13:00 05/18/24 12:00 95 H 05/18/24 12:00 99.4 F 05/18/24 12:00 99.4 F 05/18/24 12:00 91 H 18 121/73 90 L 05/18/24 12:00 94 L 05/18/24 11:50 92 H 91 L 05/18/24 11:40 100.0 F H 05/18/24 11:28 92 H 16 119/71 92 L 05/18/24 11:12 O2 Del Method O2 Flow Rate FiO2 05/19/24 09:00 Nasal Cannula 2 05/19/24 08:06 Nasal Cannula 2 05/19/24 08:00 Nasal Cannula 2 05/19/24 07:00 Nasal Cannula 2 05/19/24 06:42 Nasal Cannula 2 05/19/24 06:00 Nasal Cannula 2 05/19/24 05:00 Nasal Cannula 2 05/19/24 04:53 Nasal Cannula 2 05/19/24 04:00 05/19/24 04:00 Nasal Cannula 2 05/19/24 04:00 Nasal Cannula 2 05/19/24 03:00 Room Air 05/19/24 03:00 Nasal Cannula 2 05/19/24 02:00 Nasal Cannula 2 05/19/24 01:00 Nasal Cannula 2 05/19/24 00:53 Nasal Cannula 2 05/19/24 00:00 05/19/24 00:00 Nasal Cannula 2 05/19/24 00:00 Nasal Cannula 2 05/18/24 23:55 Nasal Cannula 2 05/18/24 23:00 Nasal Cannula 2 05/18/24 22:58 Nasal Cannula 2 05/18/24 22:00 Nasal Cannula 2 05/18/24 21:00 Nasal Cannula 2 05/18/24 20:49 Nasal Cannula 2 05/18/24 20:00 05/18/24 20:00 Nasal Cannula 2 05/18/24 20:00 Nasal Cannula 2 05/18/24 19:00 Nasal Cannula 2 05/18/24 18:39 Nasal Cannula 2 05/18/24 18:00 Nasal Cannula 2 05/18/24 17:06 Nasal Cannula 2 05/18/24 17:00 Nasal Cannula 2 05/18/24 16:30 05/18/24 16:20 Nasal Cannula 2 05/18/24 16:10 Nasal Cannula 2 05/18/24 16:00 05/18/24 16:00 Nasal Cannula 2 05/18/24 15:40 Nasal Cannula 2 05/18/24 15:00 Nasal Cannula 2 05/18/24 14:00 Room Air 05/18/24 13:15 30 05/18/24 13:00 Mechanical Ventilation 30 05/18/24 13:00 Mechanical Ventilation 05/18/24 12:00 05/18/24 12:00 05/18/24 12:00 05/18/24 12:00 Mechanical Ventilation 30 05/18/24 12:00 30 05/18/24 11:50 Mechanical Ventilation 30 05/18/24 11:40 05/18/24 11:28 Mechanical Ventilation 30 05/18/24 11:12 Mechanical Ventilation Intake and Output 05/18/24 05/19/24 05/19/24 23:59 07:59 15:59 Intake Total 773 / 2284.351 1021 / 1093 72 / 1093 Output Total 1113 / 4361 400 / 525 125 / 525 Balance -340 / -2076.649 621 / 568 -53 / 568 Intake: Intake, Tube Feeding Amount 114 / 114 242 / 242 Intake, Tube Irrigant Amount 180 / 280 Intake, Total IV Amount 479 / 1782 779 / 851 72 / 851 0.9 % Sodium Chloride 1000ML 1, 198 / 659 429 / 501 72 / 501 000 ml @ 50 mls/hr IV .Q20H [facility] Rx#:[id number] Piperacillin/Tazo 4.5 gm In 0.9 199 / 399 100 / 100 % Sodium Chloride 100 ml @ 200 mls/hr IV Q6H [facility] Rx#:[id number] Vancomycin HCl 1,000 mg In 0.9 82 / 455 250 / 250 % Sodium Chloride 250 ml @ 125 mls/hr IV Q8H [facility] Rx#:[id number] Output: Output, Urine Amount 963 / 3836 125 / 125 Output, Urine Amount (Catheter) 150 / 525 400 / 400 Encarnacion 150 / 525 400 / 400 Other: Number of Unmeasured Voids 0 Number of Bowel Movements 1 1 1 Weight 75.614 kg 75.614 kg Patient Weight 05/19/24 23:59 Weight 75.614 kg Laboratory Results - last 24 hr 05/18/24 04:28: POC Glucose 88 05/18/24 09:51: POC Glucose 104 05/18/24 16:10: Sodium 139, Potassium 4.2 D, Chloride 104, Carbon Dioxide 28, Anion Gap 11.2, BUN 12, Creatinine 0.70, Estimated Creat Clear 126, Estimated GFR 115, Est GFR ( Amer) 139, Glucose 109 H D, Calcium 8.3 L 05/18/24 16:20: POC Glucose 101 05/18/24 20:15: Vancomycin Trough 17.9 H 05/18/24 21:52: POC Glucose 105 05/19/24 01:00: Vancomycin Peak 34.2 05/19/24 06:40: WBC 7.6, RBC 4.11 L, Hgb 13.0 L, Hct 41.2 L, MCV 100.3 H, MCH 31.7 H, MCHC 31.7 L, RDW 13.9, Plt Count 428 H D, MPV 8.9, Neut % (Auto) 57.2, Lymph % (Auto) 24.4, [place] % (Auto) 13.8 H, Eos % (Auto) 3.9, Baso % (Auto) 0.8, Neut # (Auto) 4.3, Lymph # (Auto) 1.8, [place] # (Auto) 1.0, Eos # (Auto) 0.3, Baso # (Auto) 0.1, Sodium 140, Potassium 3.6, Chloride 110 H, Carbon Dioxide 28, Anion Gap 5.6, BUN 12, Creatinine 0.60 L, Estimated Creat Clear 140, Estimated GFR 137, Est GFR ( Amer) 166, Glucose 141 H D, Calcium 8.3 L, Magnesium 2.2 D, Total Bilirubin 0.8, AST 45, ALT 20 D, Alkaline Phosphatase 72, Total Protein 6.6 D, Albumin 3.0 L D, Globulin 3.6 H, Albumin/Globulin Ratio 0.8 L I & O for Labs for Last 24 Hours: Intake & Output 09/1105/17/24 05/18/24 05/19/24 23:59 23:59 23:59 23:59 Intake Total 1285.930 / 9033.618 1296.897 / 4478.897 2284.351 / 2284.351 1093 / 1093 Output Total 1030 / 1070 587 / 712 4286 / 4361 525 / 525 Balance 255.930 / 355.983 1279.897 / 3766.897 -2000.649 / -2076.649 568 / 568 Weight 63.503 kg 77.29 kg 79.107 kg 75.614 kg The patient's infection will respond to the chosen ABx?: Yes Is the patient receiving the right drug, dose, and route?: Yes Could a more targeted ABx be ordered?: No (MRSA POSITIVE NASAL SWAB. STILL INTUBATED. CONTINUE CURRENT ABX.)
[2024-05-19 10:40] LABS: POC Glucose,Bedside 136 (70-110)
--- NOTE | 2024-05-19 10:40 | PC.NURSE ---
tube feed rate increased to 40mls/hr
[2024-05-19] MEDS: 0.9 % SODIUM CHLORIDE 1000ML 1,000 ML 50 ML IV (16:41)
[2024-05-19 17:27] LABS: POC Glucose,Bedside 99 (70-110)
--- NOTE | 2024-05-19 17:29 | EXP.ACUTE.PN ---
Subjective *Date: 05/19/24 *Time: 17:29 Interval history: Patient doing well this morning. Stable on 2 L oxygen. Tolerating advancement of tube feeds, currently on 30 cc/h. Afebrile overnight. Sputum production decreasing. More interactive on exam. Has had bowel movements overnight. Medical Exam Vital signs and Labs for Last 24 Hours: Vital Signs Temp Pulse Pulse Resp BP BP Pulse Ox 05/19/24 17:00 05/19/24 16:00 79 05/19/24 15:42 05/19/24 15:00 05/19/24 13:00 05/19/24 12:00 90 05/19/24 12:00 97.9 F 86 21 134/73 94 L 05/19/24 11:00 05/19/24 09:00 05/19/24 08:06 05/19/24 08:00 90 05/19/24 08:00 98.7 F 88 20 121/68 94 L 05/19/24 07:00 88 20 130/66 97 05/19/24 06:42 05/19/24 06:00 90 24 130/74 95 05/19/24 05:00 95 H 15 124/69 92 L 05/19/24 04:53 05/19/24 04:00 96 H 05/19/24 04:00 93 L 05/19/24 04:00 98.7 F 97 H 15 134/76 93 L 05/19/24 03:00 05/19/24 03:00 97 H 18 121/66 92 L 05/19/24 02:00 100 H 14 111/60 93 L 05/19/24 01:00 93 H 16 118/67 95 05/19/24 00:53 05/19/24 00:00 99 H 05/19/24 00:00 98.9 F 99 H 22 109/57 L 95 05/19/24 00:00 93 L 05/18/24 23:55 93 L 05/18/24 23:00 96 H 16 115/60 93 L 05/18/24 22:58 05/18/24 22:00 95 H 18 106/55 L 96 05/18/24 21:00 94 H 14 111/68 95 05/18/24 20:49 05/18/24 20:00 91 H 05/18/24 20:00 96 05/18/24 20:00 87 23 103/57 L 96 05/18/24 19:00 94 H 22 102/58 L 96 05/18/24 18:39 05/18/24 18:00 99.5 F 102 H 18 124/72 95 O2 Del Method O2 Flow Rate 05/19/24 17:00 Nasal Cannula 1 05/19/24 16:00 05/19/24 15:42 Nasal Cannula 2 05/19/24 15:00 Nasal Cannula 2 05/19/24 13:00 Nasal Cannula 2 05/19/24 12:00 05/19/24 12:00 Nasal Cannula 2 05/19/24 11:00 Nasal Cannula 2 05/19/24 09:00 Nasal Cannula 2 05/19/24 08:06 Nasal Cannula 2 05/19/24 08:00 05/19/24 08:00 Nasal Cannula 2 05/19/24 07:00 Nasal Cannula 2 05/19/24 06:42 Nasal Cannula 2 05/19/24 06:00 Nasal Cannula 2 05/19/24 05:00 Nasal Cannula 2 05/19/24 04:53 Nasal Cannula 2 05/19/24 04:00 05/19/24 04:00 Nasal Cannula 2 05/19/24 04:00 Nasal Cannula 2 05/19/24 03:00 Room Air 05/19/24 03:00 Nasal Cannula 2 05/19/24 02:00 Nasal Cannula 2 05/19/24 01:00 Nasal Cannula 2 05/19/24 00:53 Nasal Cannula 2 05/19/24 00:00 05/19/24 00:00 Nasal Cannula 2 05/19/24 00:00 Nasal Cannula 2 05/18/24 23:55 Nasal Cannula 2 05/18/24 23:00 Nasal Cannula 2 05/18/24 22:58 Nasal Cannula 2 05/18/24 22:00 Nasal Cannula 2 05/18/24 21:00 Nasal Cannula 2 05/18/24 20:49 Nasal Cannula 2 05/18/24 20:00 05/18/24 20:00 Nasal Cannula 2 05/18/24 20:00 Nasal Cannula 2 05/18/24 19:00 Nasal Cannula 2 05/18/24 18:39 Nasal Cannula 2 05/18/24 18:00 Nasal Cannula 2 Intake and Output 05/19/24 05/19/24 05/19/24 07:59 15:59 23:59 Intake Total 1021 / 2154 392 / 2154 741 / 2154 Output Total 400 / 1000 600 / 1000 Balance 621 / 1154 -208 / 1154 741 / 1154 Intake: Intake, Tube Feeding Amount 242 / 472 230 / 472 Intake, Tube Irrigant Amount 90 / 90 Intake, Total IV Amount 779 / 1592 72 / 1592 741 / 1592 0.9 % Sodium Chloride 1000ML 1, 429 / 792 72 / 792 291 / 792 000 ml @ 50 mls/hr IV .Q20H [facility] Rx#:[id number] Piperacillin/Tazo 4.5 gm In 0.9 100 / 300 200 / 300 % Sodium Chloride 100 ml @ 200 mls/hr IV Q6H [facility] Rx#:[id number] Vancomycin HCl 1,000 mg In 0.9 250 / 250 % Sodium Chloride 250 ml @ 125 mls/hr IV Q8H [facility] Rx#:[id number] Vancomycin/Water For Inj (Peg) 250 / 250 1.25 gm In 250 ml @ 125 mls/hr IV Q12H [facility] Rx#:[id number] Output: Output, Urine Amount 600 / 600 Output, Urine Amount (Catheter) 400 / 400 Encarnacion 400 / 400 Other: Number of Bowel Movements 1 1 Weight 75.614 kg 75.614 kg Patient Weight 05/19/24 23:59 Weight 75.614 kg Laboratory Results - last 24 hr 05/18/24 04:28: POC Glucose 88 05/18/24 20:15: Vancomycin Trough 17.9 H 05/18/24 21:52: POC Glucose 105 05/19/24 01:00: Vancomycin Peak 34.2 05/19/24 06:40: WBC 7.6, RBC 4.11 L, Hgb 13.0 L, Hct 41.2 L, MCV 100.3 H, MCH 31.7 H, MCHC 31.7 L, RDW 13.9, Plt Count 428 H D, MPV 8.9, Neut % (Auto) 57.2, Lymph % (Auto) 24.4, [place] % (Auto) 13.8 H, Eos % (Auto) 3.9, Baso % (Auto) 0.8, Neut # (Auto) 4.3, Lymph # (Auto) 1.8, [place] # (Auto) 1.0, Eos # (Auto) 0.3, Baso # (Auto) 0.1, Sodium 140, Potassium 3.6, Chloride 110 H, Carbon Dioxide 28, Anion Gap 5.6, BUN 12, Creatinine 0.60 L, Estimated Creat Clear 140, Estimated GFR 137, Est GFR ( Amer) 166, Glucose 141 H D, Calcium 8.3 L, Magnesium 2.2 D, Total Bilirubin 0.8, AST 45, ALT 20 D, Alkaline Phosphatase 72, Total Protein 6.6 D, Albumin 3.0 L D, Globulin 3.6 H, Albumin/Globulin Ratio 0.8 L 05/19/24 10:32: POC Glucose 136 H 05/19/24 17:08: POC Glucose 99 I & O for Labs for Last 24 Hours: Intake & Output 05/16/24 05/17/24 05/18/24 05/19/24 23:59 23:59 23:59 23:59 Intake Total 1285.930 / 1629.741 4963.897 / 4478.897 2284.351 / 2284.351 2154 / 2154 Output Total 1030 / 1070 587 / 712 4286 / 4361 1000 / 1000 Balance 255.930 / 511.941 8726.897 / 3766.897 -2000.649 / -2076.649 1154 / 1154 Weight 63.503 kg 77.29 kg 79.107 kg 75.614 kg Constitutional: Present no acute distress, thin and chronically ill appearing Head: Present atraumatic and normocephalic ENT: Present normal exam Respiratory: Present rhonchi, crackles and normal respiratory effort; Absent wheezes Cardiac: Present Tachycardia GI: Present soft and normal bowel sounds; Absent distention or tenderness Extremities: Present normal inspection and full ROM Comment:: thin Skin: Present intact; Absent erythema Neuro: Present alert and moves all extremities Assessment and Plan *Assessment and plan (1) Hemoptysis: Status: Acute Category: Medical Code(s): R04.2 - Hemoptysis (2) Aspiration of foreign body into lower respiratory tract: Status: Acute Category: Medical Code(s): T17.808A - Unspecified foreign body in other parts of respiratory tract causing other injury, initial encounter (3) Flaccid paraplegia: Status: Acute Category: Medical Code(s): G82.20 - Paraplegia, unspecified (4) Cognitive impairment: Status: Acute Category: Medical Code(s): R41.89 - Other symptoms and signs involving cognitive functions and awareness (5) Seizures: Status: Acute Category: Medical Code(s): R56.9 - Unspecified convulsions (6) Dysphagia: Status: Acute Qualifiers: Dysphagia type: unspecified Qualified Code(s): R13.10 - Dysphagia, unspecified Category: Medical Code(s): R13.10 - Dysphagia, unspecified (7) S/P percutaneous endoscopic gastrostomy (PEG) tube placement: Status: Acute Category: Surgical Code(s): Z93.1 - Gastrostomy status (8) Severe protein-calorie malnutrition: Status: Chronic Category: Medical Code(s): E43 - Unspecified severe protein-calorie malnutrition Plan This is a 59-year-old functional paraplegic with chronic dysphagia that resides at [facility] brought to outpatient endoscopy lab for abnormal CT abdomen and pelvis. Gross hemoptysis was noted and cause was identified and item (tooth) sent for pathology assessment. Stable after extubation for 24 hours. Remains afebrile. Off pressors. If continues to do well, anticipate discharge tomorrow back to long-term care facility. Pulmonology assisting with care, problems addressed as follows: Gross hemoptysis Aspiration of foreign body into lower tract Aspiration pneumonia Postobstructive pneumonia Stable on 2 L nasal cannula for over 24 hours. De-escalate to med/surge level of acute care. Pulmonology/critical care consult s/p emergent bronchoscopy with foreign body removal (05/16/2024) s/p EGD (05/16/2024) s/p fiberoptic laryngoscopic he (05/16/2024) MRSA screen positive. Continue vancomycin IV and Zosyn IV. Chest x-ray with right lower lobe infiltrate -Foreign body identified as tooth. -Continue DuoNebs every 6 hours scheduled Drug therapy requiring intensive monitoring for toxicity -White count normal at 7.6, hemoglobin 13, platelets 428. Repeat CBC, CMP, magnesium ordered for the morning. Chronic dysphagia Severe protein calorie malnutrition s/p PEG placement 2019, N.p.o. status Accurate I's and O's Continue tube feeds, increase to goal of 60 cc an hour. -Nutrition assisting with care -Potassium 3.6, kidney function with BUN 12, creatinine 0.6. No indication for potassium replacement today. Tolerating tube feeds Esophagitis PPI therapy. Cognitive impairment Functional paraplegia Debility Long-term care resident BMI 19 Goals of care conversation with brother and POA. Poor prognoses discussed Full code Tube feed nutrition
--- NOTE | 2024-05-19 18:04 | PC.NURSE ---
PT HAS DONE WELL THIS SHIFT. VSS. WEANED TO ROOM AIR THIS EVENING AND IS TOLERATING IT WELL. HE IS ALERT TO SELF AND STATES THAT HE FEELS BETTER TODAY. ADEQUATE OUTPUT IN [facility]. RESIDUALS THIS SHIFT HAVE BEEN 0-15MLS. PT C/O PAIN IN HIS RIGHT FOOT X1 THIS SHIFT PRN MEDS GIVEN. TOLERATING TUBE FEEDS WELL NO NAUSEA OR VOMITING.
[2024-05-19] MEDS: PANTOPRAZOLE 40MG VIAL 40 MG IV (21:47)
[2024-05-19] MEDS: SODIUM CHLORIDE 0.9% 10ML VIAL 10 ML IV (21:47)
[2024-05-19 22:42] LABS: POC Glucose,Bedside 137 (70-110)
--- NOTE | 2024-05-19 23:03 | EXP.EVENT.NO ---
Problem: Patient reported that his legs were hurting him then later on kind of hurting all over, was given Tylenol with no relief, I interviewed the patient trying to determine exactly what was bothering him to most, and it was hard to decide if it was pain or just he needed to rest and was anxious. He is able to talk but it is hard for him to put his thoughts into clear communication. Examination: Found no signs of injury bruising or significant pain some discomfort when moving legs and ankles. plan looking in his old meds he actually has Xanax 0.25 and melatonin ordered from his long-term care facility he is not on them here so we will try a dose. Of each of these medicines to see if it will help him rest.
[2024-05-19] MEDS: ALPRAZolam 0.25MG TABLET 0.25 MG PO (23:14)
[2024-05-19] MEDS: MELATONIN 5MG TABLET 5 MG PO (23:14)
[2024-05-20] VITALS: BP 125/74; PULSE 88; PULSE 92; RESP 18; TEMP 36.9; O2SAT 92
[2024-05-20] MEDS: PIPERACILLIN/TAZO 4.5 GM in 0.9 % SODIUM CHLORIDE 100 ML IV ×2 (03:12→08:37)
[2024-05-20] MEDS: ACETAMINOPHEN 325MG/10.15ML UDC 975 MG G-TUBE (03:24)
[2024-05-20 04:00] VITALS: BP 119/63; PULSE 70; PULSE 77; RESP 18; TEMP 37.3; O2SAT 95; BMI 20.9
--- NOTE | 2024-05-20 04:42 | PC.NURSE ---
Patient alert and oriented x1 this shift. Tolerating room air well with o2 stats >90%. Patient has had complaints of right foot and generalized pain during shift and tylenol was administered per NOV. Tube feeding @ 60ml/hr, tolerating well. Encarnacion in place draining yellow urine. Patient has been q2 turned and oral care administered. Seizure pads on bed. Bed alarm on for patient safety. Call light within reach.
[2024-05-20 07:18] VITALS: O2SAT 93
--- NOTE | 2024-05-20 07:35 | EXP.DC.SUM ---
General Admission date:: 05/16/24 Discharge date: 05/20/24 HPI HPI HPI: This is a 59-year-old male that presents to [facility] endoscopy lab for EGD and evaluation for abnormal CT abdomen (January 2024). During the procedure hemoptysis was identified from the ET tube. The EGD procedure was completed identifying no esophageal lesions or bleeding, gastric lesions or bleeding or duodenal bleeding. ENT performed an endoscopy and identified no anterior posterior bleeding. They confirmed bleeding from the ET tube. Pulmonology performed an emergent bronchoscopy identifying a foreign object in the right airway tract. It was removed for pathology assessment. His right airway was irrigated and no further bleeding was assessed. He remained intubated and mechanically ventilated and his care was transitioned to the ICU. The patient's history is acquired from his brother and POA and [id number] who is a retired RN. They report that the patient in 2019 was found down at home and his care was subsequently transitioned to the [facility] for care. At concerns with anoxic brain injury, dysphagia were noted and he received a PEG tube and his care was transitioned to long-term care at [facility]. Family reports that he has had a PEG tube since 2019 and has been n.p.o. for greater than a year. He had a complete dental extraction in 2019. They report that he is non-ambulatory. Hospital Course Hospital Course Hospital Course: This is a 59-year-old functional paraplegic with chronic dysphagia that resides at [facility] brought to outpatient endoscopy lab for abnormal CT abdomen and pelvis. Gross hemoptysis was noted and cause was identified and item (tooth) sent for pathology assessment. Patient was extubated on 05/18/2024. Has done well and weaned to room air. Remains afebrile for over 48 hours. Stable off pressors for over 48 hours. Advance to regular tube feed volume. Sputum cultures sensitive to an oral antibiotic, will transition to antibiotics per tube to complete 2 weeks of therapy. Stable to discharge back to his long-term care facility. Problems addressed as follows: Gross hemoptysis Aspiration of foreign body into lower tract Aspiration pneumonia Postobstructive pneumonia Patient presented as an outpatient for EGD due to abnormal CT scan showing wall thickening of the gastric pylorus and duodenal bulb concerning for mass. During procedure patient found to have tamra mopped assist. ENT was consulted, concern for blood coming from lungs not upper airway and so pulmonology was consulted. Mild duodenitis identified on EGD. Bronchoscopy was performed emergently on 05/16 that showed foreign body. It was removed and found to be a tooth. Admitted to the floor with mechanical ventilation. Hemoptysis and proved moved and he was extubated on 05/18/2024 to nasal cannula oxygen. Able to wean to room air over the next 24 hours. Sputum sample obtained that returned positive for E. coli and Morganella. Patient will be transitioned to Bactrim to complete 14 days of therapy per tube. Overall doing well with normalization of his white count to 6.3 on day of discharge. -Initial imaging showed lower lobe infiltrate. Treated with DuoNebs during admission. Responded well. Chronic dysphagia Severe protein calorie malnutrition s/p PEG placement 2018, N.p.o. status. Tolerating tube feed aids. At goal of 65 cc an hour. Resume tube feeding regimen when returns to nursing facility. Nutrition was consulted and assisted with care. Labs on day of discharge showing sodium 139, potassium 3.7, kidney function normal with BUN 11, creatinine 0.5. Esophagitis: PPI therapy. Cognitive impairment Functional paraplegia Debility Long-term care resident BMI 19 Goals of care conversation with brother and POA. Poor prognoses discussed during admission. Patient noted to have significant seborrheic dermatitis on his face. Please treat with Selsun Blue shampoo twice a week by placing the shampoo on spots on his face, forehead, scalp and leaving for 15 minutes prior to washing off. Plan to follow-up with pulmonology as an outpatient. Total time spent on discharge 35 minutes in counseling, documentation, chart review, and direct care with patient. Exam Data for Last 24 hours Vital signs and Labs for Last 24 Hours: Temp Pulse Resp BP Pulse Ox O2 Del Method O2 Flow Rate 99.1 F 77 18 119/63 93 L Room Air 2 05/20/24 04:00 05/20/24 04:00 05/20/24 04:00 05/20/24 04:00 05/20/24 07:18 05/20/24 07:18 05/20/24 00:00 FiO2 28 05/19/24 19:24 Laboratory Results - last 24 hr 05/19/24 04:48: POC Glucose 137 H 05/19/24 06:40: WBC 7.6, RBC 4.11 L, Hgb 13.0 L, Hct 41.2 L, MCV 100.3 H, MCH 31.7 H, MCHC 31.7 L, RDW 13.9, Plt Count 428 H D, MPV 8.9, Neut % (Auto) 57.2, Lymph % (Auto) 24.4, Stoddard % (Auto) 13.8 H, Eos % (Auto) 3.9, Baso % (Auto) 0.8, Neut # (Auto) 4.3, Lymph # (Auto) 1.8, Stoddard # (Auto) 1.0, Eos # (Auto) 0.3, Baso # (Auto) 0.1, Sodium 140, Potassium 3.6, Chloride 110 H, Carbon Dioxide 28, Anion Gap 5.6, BUN 12, Creatinine 0.60 L, Estimated Creat Clear 140, Estimated GFR 137, Est GFR ( Amer) 166, Glucose 141 H D, Calcium 8.3 L, Magnesium 2.2 D, Total Bilirubin 0.8, AST 45, ALT 20 D, Alkaline Phosphatase 72, Total Protein 6.6 D, Albumin 3.0 L D, Globulin 3.6 H, Albumin/Globulin Ratio 0.8 L 05/19/24 10:32: POC Glucose 136 H 05/19/24 17:08: POC Glucose 99 I & O for Last 24 hours: Intake & Output 05/17/24 05/18/24 05/19/24 05/20/24 23:59 23:59 23:59 23:59 Intake Total 4347.897 / 4478.897 2284.351 / 2284.351 2154 / 2154 887 / 887 Output Total 587 / 712 4286 / 4361 1400 / 1820 420 / 420 Balance 3760.897 / 3766.897 -649 / -2076.649 754 / 334 467 / 467 Weight 77.29 kg 79.107 kg 75.614 kg 75.863 kg Constitutional Constitutional: no acute distress, thin, chronically ill appearing and cooperative *Routine HEENT Exam Head: Present normocephalic Eye: Present conjunctivae pink ENT: Present mucous membranes moist Comments: seborrheic dermatitis on face *Routine Neck Exam Neck: Absent JVD or lymphadenopathy *Routine Respiratory Exam Respiratory: Present rhonchi (clear with cough) and normal respiratory effort; Absent prolonged expiratory phase, respiratory distress, wheezes, crackles or diminished air movement *Routine Cardiovascular Exam Cardiovascular: Present RRR *Routine Abdominal Exam Abdominal: Present soft and normoactive bowel sounds Comments: G-tube in place *Routine Rectal Exam Patient deferred: visual exam *Routine Exam Patient deferred: penile exam *Routine Extremities Exam Extremities: Absent edema Comments: thin extremities *Routine Skin Exam Skin: Present intact; Absent rash *Routine Neurological Exam Neurological: Present alert, altered mental status and moving all extremities; Absent oriented X3 Comments: baseline mentation Routine Psychiatric Exam Psychiatric: Present unable to assess Results Data Completed and Pending Labs on day of discharge: Labs from last 24 hours 05/19/24 05/19/24 05/19/24 17:08 10:32 06:40 WBC 7.6 RBC 4.11 L Hgb 13.0 L Hct 41.2 L MCV 100.3 H MCH 31.7 H MCHC 31.7 L RDW 13.9 Plt Count 428 H D MPV 8.9 Neut % (Auto) 57.2 Lymph % (Auto) 24.4 Stoddard % (Auto) 13.8 H Eos % (Auto) 3.9 Baso % (Auto) 0.8 Neut # (Auto) 4.3 Lymph # (Auto) 1.8 Stoddard # (Auto) 1.0 Eos # (Auto) 0.3 Baso # (Auto) 0.1 Sodium 140 Potassium 3.6 Chloride 110 H Carbon Dioxide 28 Anion Gap 5.6 BUN 12 Creatinine 0.60 L Estimated Creat Clear 140 Estimated GFR 137 Est GFR ( Amer) 166 Glucose 141 H D POC Glucose 99 136 H Calcium 8.3 L Magnesium 2.2 D Total Bilirubin 0.8 AST 45 ALT 20 D Alkaline Phosphatase 72 Total Protein 6.6 D Albumin 3.0 L D Globulin 3.6 H Albumin/Globulin Ratio 0.8 L 05/19/24 04:48 WBC RBC Hgb Hct MCV MCH MCHC RDW Plt Count MPV Neut % (Auto) Lymph % (Auto) Stoddard % (Auto) Eos % (Auto) Baso % (Auto) Neut # (Auto) Lymph # (Auto) Stoddard # (Auto) Eos # (Auto) Baso # (Auto) Sodium Potassium Chloride Carbon Dioxide Anion Gap BUN Creatinine Estimated Creat Clear Estimated GFR Est GFR ( Amer) Glucose POC Glucose 137 H Calcium Magnesium Total Bilirubin AST ALT Alkaline Phosphatase Total Protein Albumin Globulin Albumin/Globulin Ratio DS: Diagnosis Discharge Diagnosis (1) Hemoptysis: Status: Acute Code(s): R04.2 - Hemoptysis (2) Aspiration of foreign body into lower respiratory tract: Status: Acute Code(s): T17.808A - Unspecified foreign body in other parts of respiratory tract causing other injury, initial encounter (3) Flaccid paraplegia: Status: Acute Code(s): G82.20 - Paraplegia, unspecified (4) Cognitive impairment: Status: Acute Code(s): R41.89 - Other symptoms and signs involving cognitive functions and awareness (5) Seizures: Status: Acute Code(s): R56.9 - Unspecified convulsions (6) Dysphagia: Status: Acute Code(s): R13.10 - Dysphagia, unspecified Qualifiers: Dysphagia type: unspecified Qualified Code(s): R13.10 - Dysphagia, unspecified (7) S/P percutaneous endoscopic gastrostomy (PEG) tube placement: Status: Acute Code(s): Z93.1 - Gastrostomy status (8) Severe protein-calorie malnutrition: Status: Chronic Code(s): E43 - Unspecified severe protein-calorie malnutrition (9) Seborrheic dermatitis: Status: Acute Code(s): L21.9 - Seborrheic dermatitis, unspecified Meds Home Medications and Allergies Home Medications ?Medication ?Instructions ?Recorded ?Confirmed ?Type acetaminophen 500 mg tablet 500 mg feeding tube Q4HP PRN Fever 12/24/22 05/16/24 History Or Pain aspirin 81 mg chewable tablet 81 mg feeding tube DAILY 12/24/22 05/16/24 History cholecalciferol (vitamin D3) 100 100 mcg feeding tube DAILY 12/24/22 05/16/24 History mcg (4,000 unit) tablet folic acid 0.8 mg capsule 0.8 mg feeding tube DAILY 12/24/22 05/16/24 History metoclopramide HCl 5 mg tablet 5 mg feeding tube BID 12/24/22 05/16/24 History potassium chloride 20 mEq/15 mL 20 meq feeding tube BID 12/24/22 05/16/24 History oral liquid quetiapine 100 mg tablet 50 mg feeding tube TID 12/24/22 05/17/24 History thiamine HCl (vitamin B1) 100 mg 100 mg feeding tube DAILY 12/24/22 05/16/24 History tablet valproic acid (as sodium salt) 250 500 mg feeding tube BID 12/24/22 05/16/24 History mg/5 mL oral solution Lactobacillus acidophilus 1 1,000 mmu cells PO DAILY 12/25/22 05/16/24 History billion cell capsule melatonin 3 mg tablet 3 mg PO HS 12/25/22 05/16/24 History polyethylene glycol 3350 17 17 g PO DAILY 12/25/22 05/16/24 History gram/dose oral powder (Miralax) alprazolam 0.25 mg tablet (Xanax) 0.25 mg PO HS 05/16/24 05/16/24 History doxazosin 1 mg tablet 1 mg feeding tube DAILY 05/16/24 05/16/24 History omeprazole 20 mg capsule,delayed 40 mg (2 x 20 mg) feeding tube 05/20/24 05/16/24 Rx release DAILY 30 days #0 caps sulfamethoxazole 200 20 ml PO BID 10 days #400 mL 05/20/24 Rx mg-trimethoprim 40 mg/5 mL oral suspension New Prescriptions to Start Prescriptions: sulfamethoxazole-trimethoprim Ravi Quintanilla Allergies Allergy/AdvReac Type Severity Reaction Status Date / Time No Known Allergies Allergy Verified 05/16/24 12:30 Discharge Plan Disposition Patient Disposition: Xfer Intermediate Care Fac Condition: Fair Discharge Order Discharge Orders: Discharge Order (Routine); Ordered 05/20/24 Ordered By: Ravi Quintanilla Follow up Plan Follow up with: Sara Todd MD [Physician] - Enter time for follow up Prescriptions/Medication Reconciliation: New sulfamethoxazole-trimethoprim 200-40 mg/5 mL suspension 20 ml PO BID 10 Days Qty: 400 0RF Continued doxazosin 1 mg tablet 1 mg feeding tube DAILY alprazolam [Xanax] 0.25 mg Tablet 0.25 mg PO HS thiamine HCl (vitamin B1) 100 mg Tablet 100 mg feeding tube DAILY quetiapine 100 mg tablet 50 mg feeding tube TID acetaminophen 500 mg Tablet 500 mg feeding tube Q4HP PRN (Reason: Fever Or Pain) potassium chloride 20 mEq/15 mL liquid 20 meq feeding tube BID metoclopramide HCl 5 mg tablet 5 mg feeding tube BID valproic acid (as sodium salt) 250 mg/5 mL solution 500 mg feeding tube BID aspirin 81 mg Tablet,Chewable 81 mg feeding tube DAILY folic acid 0.8 mg Capsule 0.8 mg feeding tube DAILY cholecalciferol (vitamin D3) 100 mcg (4,000 unit) Tablet 100 mcg feeding tube DAILY melatonin 3 mg Tablet 3 mg PO HS Lactobacillus acidophilus 1 billion cell Capsule 1,000 mmu cells PO DAILY polyethylene glycol 3350 [Miralax] 17 gram/dose Powder 17 g PO DAILY Changed omeprazole 20 mg capsule,delayed release(DR/EC) 40 mg feeding tube DAILY 30 Days Qty: 0 0RF Discontinued guaifenesin 50 mg/5 mL Liquid 150 mg feeding tube BID Problem Reconciliation Problems Reviewed?: Yes Patient Discharge Instructions ACTIVITY: Continue current activity DIET: continue same diet Patient Instructions: Upper GI Endoscopy, Ventilator-Associated Pneumonia Print Language: Korean Providers Primary Care Provider: Provider,Referral Admit Provider: Phil Landa Attending Provider: Phil Landa
[2024-05-20 07:55] LABS: Basophils # 0.1 K/mm3 (0-0.2); Eosinophils # 0.5 K/mm3 (0.0-0.4); Eosinophils % 7.9 % (0.1-12.0); Hematocrit 41.9 % (42.0-52.0); Hemoglobin 13.2 g/dL (14.1-18.0); Lymphocytes % 31.9 % (10-50); Mean Corpuscular HGB Conc 31.4 g/dL (31.8-35.4); Mean Corpuscular Hemoglobin 31.9 pg (27.0-31.2); Mean Corpuscular Volume 101.4 fl (80-94); Mean Platelet Volume 8.6 fl (7.4-10.4); Monocytes # 0.8 K/mm3 (0.1-1.0); Neutrophils % 47.2 % (37.0-80.0); Platelet Count 431 K/mm3 (142-424); Red Blood Count 4.13 M/mm3 (4.60-6.20); Red Cell Distribution Width 13.9 % (11.5-17.5); White Blood Count 6.3 K/mm3 (4.8-10.8)
[2024-05-20 08:00] VITALS: BP 125/71; PULSE 63; PULSE 73; RESP 21; TEMP 36.5; O2SAT 93
[2024-05-20 08:08] LABS: Alanine Aminotransferase 19 U/L (12-78); Albumin/Globulin Ratio 0.9 (1.1-1.8); Alkaline Phosphatase 69 U/L (38-126); Anion Gap 5.7 mEq/L (5-15); Aspartate Amino Transferase 37 U/L (17-59); Bilirubin,Total 0.5 mg/dl (0.2-1.3); Blood Urea Nitrogen 11 mg/dl (9-20); Calcium 8.5 mg/dl (8.4-10.2); Carbon Dioxide 26 mmol/L (22.0-30.0); Chloride 111 mmol/L (98-107); Creatinine Clearance Estimated 169 mL/min (50-200); Estimated Glomerular Filt Rate 170 ml/min (>60); GFR (African American) 205 ML/MIN (>60); Globulin 3.5 g/dL (1.3-3.2); Glucose 121 mg/dl (74-100); Potassium 3.7 mmoL/L (3.5-5.1); Sodium 139 mmol/L (136-145); Total Protein,Serum 6.5 g/dl (6.3-8.2)
[2024-05-20] MEDS: VALPROIC ACID 250 MG/5 ML SOL UDC 500 MG G-TUBE (08:38)
[2024-05-20] MEDS: METOCLOPRAMIDE 5MG TABLET 5 MG FEED TUBE (08:38)
[2024-05-20] MEDS: VANCOMYCIN/WATER FOR INJ (PEG) 1.25 GM/250 ML PIGGYBACK IV (09:25)
--- NOTE | 2024-05-20 10:52 | PC.NURSE ---
FSBS 118
[2024-05-20 11:01] LABS: POC Glucose,Bedside 118 (70-110)
[2024-05-20 12:00] VITALS: BP 126/64; PULSE 77; PULSE 82; RESP 18; TEMP 36.3; O2SAT 95
--- NOTE | 2024-05-20 12:27 | PC.NURSE ---
attempted to call report x2 with no answer
--- NOTE | 2024-05-21 15:25 | P.PCN_ITS ---
Procedure: Date: 05/16/24 Patient Date of :: 1965 Procedure Performed:: Bronchoscopy airway examination, possible bronchial karli placement Indications:: Hemoptysis Performing Provider:: Sara Todd MD Referring Provider:: Dr. Cordell Villarreal Sedation:: General anesthesia. Procedure:: Bronchoscopy with airway examination: Consent was obtained from the family member. The procedure was performed in an attempt to place possible endobronchial karli in anticipation for hemoptysis. Given no endobronchial blockers were present in the hospital the plan was made to use a pediatric Encarnacion catheter as an endobronchial karli. Likely therapeutic bronchoscopy was advanced to the ET tube pulmonary examination was performed. Scant blood-tinged secretions were noted in the light lower lobe bronchi that were suctioned. No secretions were noted in the left lower lobe bronchi. Given concern for possible further hemoptysis, the plan was made to put an endobronchial karli, to protect patient's left lung brown and thereby allow oxygenation, to facilitate transfer to higher level of care if he experiences hemoptysis. Evaluated, 10 [place]e pediatric Encarnacion catheter was too short to reach the right lower lobe/right bronchus intermedius. Attempted to advance 14 [place]e pediatric Encarnacion catheter however could not be advanced along with a bronchoscopy given patient having size 8 tube. The catheter was advanced gently by itself with bezel pointing right mainsteam bronchi and x-ray was performed confirming its presence in the right lower lobe lung brown. However patient not getting enough tidal volumes after the catheter was left in the ET tube and the catheter was eventually removed to facilitate adequate ventilation. No tamra mopped assist noted after the procedure. The patient after the procedure was left with ET tube in place 2 cm above the rikki with no endobronchial karli in place. Findings:: Please see the procedure note Recommendations:: Please see the procedure note and consult note from today Complications:: No acute immediate complication Estimated blood obtained (mL): 5
[2024-05-22 01:08] LABS: Aspergillus Antigen, BAL/Serum 0.54 Index (0.00-0.49)
[2024-05-24 16:15] LABS: PDF: SCANNED IMAGE
== END 2024-05-20 13:17 | DRG 208 ==
LOC: 2ND 14:21
PROVIDERS: Internal Medicine; Internal Medicine Adolescent Medicine; Internal Medicine Pulmonary Disease; Admitting Provider Family Medicine; Visit Provider Family Medicine
PROC: 0DJ08ZZ Inspection of Upper Intestinal Tract, Via Natural or Artificial Opening Endoscopic (ICD-10-PCS; CPT 43235; principal; 2024-05-16 13:00)
PROC: 0BC68ZZ Extirpation of Matter from Right Lower Lobe Bronchus, Via Natural or Artificial Opening Endoscopic (ICD-10-PCS; principal; 2024-05-16 15:30)
DX: E43 Unspecified severe protein-calorie malnutrition (principal); J69.8 Pneumonitis due to inhalation of other solids and liquids; T17.598A Other foreign object in bronchus causing other injury, initial encounter; Z93.1 Gastrostomy status; R04.2 Hemoptysis; G82.20 Paraplegia, unspecified; G40.89 Other seizures; W44.F9XA Other object of natural or organic material, entering into or through a natural orifice, initial encounter; Z68.21 Body mass index [BMI] 21.0-21.9, adult; Z87.891 Personal history of nicotine dependence; I95.81 Postprocedural hypotension; R41.89 Other symptoms and signs involving cognitive functions and awareness; R13.10 Dysphagia, unspecified; S06.89AS Other specified intracranial injury with loss of consciousness status unknown, sequela
CPT/HCPCS: 36415; 71045; 71260; 74177; 80048; 80053; 80202; 81001; 82803; 82962; 83735; 84145; 85014; 85018; 85025; 85610; 86140; 86850; 87070; 87077; 87081; 87102; 87116; 87186; 87205; 87206; 87305; 88112; 88305; 89051; 93005; 93306; 94002; 94003; 94760; 94761; J0330; J1940; J2543; J2704; J3010; J3370; J3475; J7030; J7050; J7120; Q9967

== ENCOUNTER 2025-01-03 14:57 | Outpatient (CLI) | payer MEDICARE, MEDICAID, SELFPAY ==
--- NOTE | 2025-01-03 14:57 | CT_ITS ---
FINAL REPORT TECHNIQUE: Axial images were obtained through the chest without contrast. Coronal and sagittal reconstructions were performed. This study was performed with techniques to keep radiation doses as low as reasonably achievable (ALARA). Individualized dose reduction techniques using automated exposure control or adjustment of mA and/or kV according to the patient's size were employed. CLINICAL HISTORY: 3 mth F/U COMPARISON: Prior CT chest 05/16/2024 FINDINGS: CT CHEST: In the interval since the prior CT of the chest dated 05/16/2024, the patient has been extubated. The previously noted mediastinal and right hilar adenopathy is less evident than seen on the prior exam, but does persist. There is localized consolidation in in the lung bases, right greater than left, also seen on the prior exam, favor chronic. The ground glass and alveolar infiltrates seen on the prior CT and felt to represent pneumonia at that time have resolved. There is a new noncalcified nodular opacity present in the right lung base, which measures 10 mm in size and is best seen on image #51 of series 2. This may be post inflammatory or neoplastic. IMPRESSION: The mediastinal and right hilar adenopathy persists, although the nodes are smaller on the current examination. In addition, the ground glass and alveolar infiltrates seen on the prior CT have resolved. There is a new noncalcified nodular opacity in the right lower lung field, that may be post inflammatory or neoplastic. According to Fleischner criteria, would consider a PET/CT for further evaluation. Reviewed, Interpreted and Dictated by Federico Harris MD Transcribed by Coty Rodriguez Authenticated and [facility]
== END 2025-01-03 23:59 | disposition home or self-care (01) ==
LOC: RAD 14:57
PROVIDERS: Visit Provider Internal Medicine Pulmonary Disease
DX: R91.8 Other nonspecific abnormal finding of lung field (principal)
CPT/HCPCS: 71250

== ENCOUNTER 2025-07-15 10:51 | Observation (INO) | payer MEDICARE, MEDICAID, SELFPAY ==
[2025-07-15 10:35] VITALS: BP 157/86; PULSE 124; RESP 30; TEMP 37.8; O2SAT 87; BMI 25.8
--- NOTE | 2025-07-15 10:36 | CT_ITS ---
FINAL REPORT TECHNIQUE: IV contrast enhanced exam This study was performed with techniques to keep radiation doses as low as reasonably achievable, (ALARA). Individualized dose reduction techniques using automated exposure control or adjustment of mA and/or kV according to the patient''s size were employed. CLINICAL HISTORY: ABD distention, PEG tube in place COMPARISON: 05/16/2024 FINDINGS: Abdomen: Lung bases demonstrate bibasilar opacities which may represent pneumonia or atelectasis. The gallbladder is unremarkable. Liver has an unremarkable CT appearance. The spleen, pancreas and adrenal glands are unremarkable. There is a right renal cyst, similar to prior exam. There is no hydronephrosis. No bowel obstruction or fluid collection is seen. Pelvis: There are no findings of appendicitis. There is mild fecal impaction. There is a small right inguinal hernia containing fat which is slightly larger than on prior exam. Urinary bladder and prostate are unremarkable. Pelvic bowel loops are unremarkable. No fluid collection or adenopathy is seen. 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 IMPRESSION: No acute intra-abdominal findings. Reviewed, Interpreted and Dictated by Nikki Flores MD Transcribed by Mila Thompson Authenticated and [facility]
--- NOTE | 2025-07-15 10:36 | XR_ITS ---
FINAL REPORT CLINICAL HISTORY: Shortness of breath, respiratory distress COMPARISON: None FINDINGS: A single frontal view of the chest was obtained. There is mild bibasilar atelectasis. No infiltrate. There is no evidence of effusion or pneumothorax. Mediastinum is unremarkable. Heart size is borderline enlarged. IMPRESSION: Poor inspiration without definite pneumonia. Reviewed, Interpreted and Dictated by Nikki Flores MD Transcribed by Kelli Rivera Authenticated and [facility]
--- NOTE | 2025-07-15 10:36 | CT_ITS ---
FINAL REPORT TECHNIQUE: Thin section axial CT with contrast with multiplanar reconstruction This study was performed with techniques to keep radiation doses as low as reasonably achievable, (ALARA). Individualized dose reduction techniques using automated exposure control or adjustment of mA and/or kV according to the patient''s size were employed. CLINICAL HISTORY: shortness of breath, respiratory distress, hx of PNA COMPARISON: 01/03/2025 FINDINGS: Pulmonary vessels enhance in normal fashion without evidence of embolism. Thoracic aorta shows no dissection or aneurysm. Chronic consolidation right lower lobe may represent recurrent pneumonia or chronic infiltrate. Follow-up bronchoscopy may be considered. Previously nodule in the right lower lobe is no longer evident. Moderate left lower lobe atelectasis is noted. There is narrowing of the right central airway involving the right lower lobe bronchus. This is best seen on axial images 6366 of series 5. There is no significant pleural effusion. There is no significant pericardial effusion. There are stable right paratracheal adenopathy. IMPRESSION: No evidence of pulmonary embolism or aortic dissection/aneurysm. Chronic opacification right lower lobe may represent recurrent pneumonia or chronic infiltrate. Given narrowing of the right lower lobe bronchus, follow-up bronchoscopy may be considered. Prior right lower lobe nodule no longer seen. Reviewed, Interpreted and Dictated by Nikki Flores MD Transcribed by Kelli Rivera Authenticated and [facility]
--- NOTE | 2025-07-15 10:37 | CT_ITS ---
FINAL REPORT TECHNIQUE: Noncontrast exam This study was performed with techniques to keep radiation doses as low as reasonably achievable, (ALARA). Individualized dose reduction techniques using automated exposure control or adjustment of mA and/or kV according to the patient''s size were employed. CLINICAL HISTORY: AMS COMPARISON: 03/23/2019 FINDINGS: Moderate generalized atrophy and mild chronic ischemic white matter changes are noted, worse compared to the prior exam. There is a small chronic lacunar infarct in the right ruben. No cortical edema is present. There is no mass or hemorrhage. Ventricles are normal. Bone windows show no skull fracture or obvious obstructive lesion. IMPRESSION: No acute intracranial abnormality or obvious mass. Progressed atrophy and chronic microvascular changes. Reviewed, Interpreted and Dictated by Nikki Flores MD Transcribed by Kelli Rivera Authenticated and [facility]
--- NOTE | 2025-07-15 10:40 | ECG_ITS ---
APPROVED REPORT Exam: Resting ECG HR:120 bpm ECG Measurements Heart Rate 120 AXES SD 162 P 63 QRSd 91 QRS 120 QT 322 T 60 QTc 393 Conclusion SINUS TACHYCARDIA POSSIBLE RIGHT VENTRICULAR HYPERTROPHY [SOME/ALL OF: PROMINENT R IN V1, LATE TRANSITION, RAD, PRETTY, SSS] ABNORMAL ECG UNCONFIRMED REPORT Electronically signed by : CJ SWIFT, 07/16/2025 05:23:38
--- NOTE | 2025-07-15 10:43 | PC.NURSE ---
SPOKE TO PTS NOK. PT IS A FULL CODE.
--- NOTE | 2025-07-15 10:44 | HMH.EDCP ---
Discharge Plan Disposition Patient Disposition: Admitted Condition: Fair Clinical Impressions Clinical Impression: Sepsis, Pneumonia Discharge ED Provider: Silas Conrad HPI <AYLA Swanson - Last Filed: 07/15/25 14:50> General Chief Complaint: Shortness of Breath/Dyspnea Stated Complaint: shortness of breath Time Seen by Provider: 07/15/25 10:54 Mode of Arrival: EMS Source of Information: EMS and Medical Record Description of Symptoms (Recalled from ER Triage Doc. by RN): PT IS SHORT OF BREATH. SNOROUS RESPIRATIONS. ABD DISTENDED FEVER. ACCESSORY MUSCLE USE. X 3 DAYS History of Present Illness HPI narrative: 60-year-old male presents the emergency department via EMS from longterm facility for a 2 to 3-day history of respiratory distress,/dyspnea, fever, ABD distention, and accessory muscle use, now on 2 L nasal cannula which is not patient's baseline. Per EMS patient was given DuoNeb en route, GCS of 11, will answer to his name and make uncomprehensible sounds, appears to be baseline according to EMS/nursing of facility. Thus review of systems was not obtained, past medical history upon medical record review is notable for implantable PEG tube, flaccid paraplegia, SPENCER, epilepsy/seizure disorder,/Wernicke's encephalopathy due to chronic alcoholism, GERD. Initial triage vitals notable for sepsis criteria with tachycardia tachypnea febrile and decreased oxygen saturation, appears to have prior history of alcohol use/abuse and tobacco abuse. Also of note, attending physician received phone call from longterm physician who states the patient was treated for pneumonia/concern for diagnosis yesterday, however chest x-ray which was negative per EMS, but did receive what sounds like IM dose of Rocephin and azithromycin. Please note that above description of symptoms, in this electronic medical record under categorization of recalled from ER triage doctor by RN are reflective of an initial nursing assessment, however, is not reflective of my full history and physical exam that was personally taken and clarified. Consequentially, this preceding description of symptoms, which may include the patient's categorized chief complaint in the EMR, do not reflect my personal clinical impression, and the ultimate description of history of present illness and patient stated complaints should be deferred to this section of the note. Unless stated otherwise or congruent with this section of the note, additional signs, symptoms, or incongruence should be interpreted as inaccurate with my clinical impression. complaint: other Onset (ago): day(s) Related Data Home Medications ?Medication ?Instructions ?Recorded ?Confirmed acetaminophen 500 mg tablet 500 mg feeding tube Q4HP PRN Fever 12/24/22 05/28/24 Or Pain aspirin 81 mg chewable tablet 81 mg feeding tube DAILY 12/24/22 05/28/24 cholecalciferol (vitamin D3) 100 100 mcg feeding tube DAILY 12/24/22 05/28/24 mcg (4,000 unit) tablet folic acid 0.8 mg capsule 0.8 mg feeding tube DAILY 12/24/22 05/28/24 metoclopramide HCl 5 mg tablet 5 mg feeding tube BID 12/24/22 05/28/24 potassium chloride 20 mEq/15 mL 20 meq feeding tube BID 12/24/22 05/28/24 oral liquid quetiapine 100 mg tablet 50 mg feeding tube TID 12/24/22 05/28/24 thiamine HCl (vitamin B1) 100 mg 100 mg feeding tube DAILY 12/24/22 05/28/24 tablet valproic acid (as sodium salt) 250 500 mg feeding tube BID 12/24/22 05/28/24 mg/5 mL oral solution Lactobacillus acidophilus 1 1,000 mmu cells PO DAILY 12/25/22 05/28/24 billion cell capsule melatonin 3 mg tablet 3 mg PO HS 12/25/22 05/28/24 polyethylene glycol 3350 17 17 g PO DAILY 12/25/22 05/28/24 gram/dose oral powder (Miralax) alprazolam 0.25 mg tablet (Xanax) 0.25 mg PO HS 05/16/24 05/28/24 doxazosin 1 mg tablet 1 mg feeding tube DAILY 05/16/24 05/28/24 Previous Rx's ?Medication ?Instructions ?Recorded omeprazole 20 mg capsule,delayed 40 mg (2 x 20 mg) feeding tube 05/20/24 release DAILY 30 days #0 caps sulfamethoxazole 200 20 ml PO BID 10 days #400 mL 05/20/24 mg-trimethoprim 40 mg/5 mL oral suspension Allergies Allergy/AdvReac Type Severity Reaction Status Date / Time No Known Allergies Allergy Verified 05/28/24 10:34 COUNTS INCLUDE 234 BEDS AT THE [facility] <AYLA Swanson - Last Filed: 07/15/25 14:50> COUNTS INCLUDE 234 BEDS AT THE [facility] Disclaimer: The information contained in this section may have been updated after the patient was seen, as this information can be updated by other users. Medical History (Updated 07/15/25 @ 13:41 by AYLA Swanson) History of hemoptysis History of smoking 30 or more pack years Dislodged gastrostomy tube Cognitive impairment Flaccid paraplegia Dysphagia GERD (gastroesophageal reflux disease) COPD (chronic obstructive pulmonary disease) Hemoptysis Seizures Lung nodules Gastrostomy tube in place Surgical History S/P percutaneous endoscopic gastrostomy (PEG) tube placement Hx of esophagogastroduodenoscopy Family History Mother Non Hodgkin's lymphoma Father Lung cancer Social History Smoking Status: Never smoker years smoked: 30 smoking status stop date: 2018 second hand exposure: No alcohol intake: former substance use type: denies use current occupational status: disabled Travel in the last 8 weeks?: None household members: other housing: longterm caffeine: No Have you lived/traveled outside [place] in past 30 days?: No Contact w/someone who lives/traveled outside US past 30 days?: No Exposure to someone with infectious disease in past 14 days?: No Do you have a fever (greater than 100.4 F or 38 C)?: No Have you tested positive for COVID-19?: No Exposed to someone with COVID-19 in past 14 days?: No Do you have a sore throat?: No Do you have a cough?: No Do you have any weakness?: No Do you have any diarrhea?: No Are you experiencing any unusual bleeding?: No Do you have any muscle aches/pain?: No Do you have any abdominal pain?: No Are you experiencing loss of taste or smell?: No Other Medical History Have you received the Flu Vaccine for this season: No Have you received the Pneumonia Vaccine: No <AYLA Swanson - Last Filed: 07/15/25 14:50> ROS Obtained: Yes All systems reviewed & no additional complaints except as documented Physical Exam <AYLA Swanson - Last Filed: 07/15/25 14:50> General General appearance: alert Comment: Ill-appearing male Head Head exam: atraumatic and normocephalic Eye Eye exam: Present PERRL and EOMI ENT ENT exam: Present mucous membranes moist Neck Neck exam: Present normal inspection Chest Chest inspection: Present normal inspection and symmetric chest wall rise Respiratory Respiratory exam: Present respiratory distress, wheezes and other (Audible wheezes/crackles noted throughout bilateral lung brown that are moderate to severe in nature); Absent normal lung sounds bilaterally Cardiovascular Cardiovascular exam: Present normal rhythm and tachycardia Abdominal Exam Abdominal exam: Present soft and distention; Absent tenderness, guarding or rebound Extremities Exam Extremities exam: Present normal inspection Neurological Exam Neurological exam: Present alert and other (GCS of 11, obeys commands, uncomprehensible sounds, will attempt to state name, opens eyes to command) Psychiatric Psychiatric exam: Present normal affect Skin Skin exam: Present warm and dry HEART Score <AYLA Swanson - Last Filed: 07/15/25 14:50> HEART Score HEART Score assessment performed?: No Critical Care <AYLA Swanson - Last Filed: 07/15/25 14:50> Critical Care Time Critical Care Time: No Medical Decision Making <AYLA Swanson - Last Filed: 07/15/25 14:50> Medical Records Medical records reviewed: Yes I reviewed the patient's medical records. Gene Inquiry Pt receiving controlled substance: No Gene was queried for this patient: No Vital Signs Vital Signs: 07/15/25 10:35 07/15/25 14:17 Temperature 100.1 F H 99.4 F Temperature Source Axillary Pulse Rate 114 H Pulse Rate [Right] 124 H Respiratory Rate 30 H 28 H Blood Pressure 142/68 H Blood Pressure [Right Arm] 157/86 H Blood Pressure Mean [Right Arm] 109 02 Sat by Pulse Oximetry 87 L Oxygen Delivery Method Nasal Cannula Nasal Cannula Oxygen Flow Rate (LPM) 2 2 Lab Data Lab results reviewed: Yes I reviewed the patient's lab results. Labs: Lab Results 07/15/25 10:45: WBC 12.5 H, RBC 5.32, Hgb 17.4, Hct 55.0 H, MCV 103.4 H, MCH 32.7 H, MCHC 31.6 L, RDW 13.7, Plt Count 294, MPV 11.2 H, Neut % (Auto) 79.1, Lymph % (Auto) 12.3, [place] % (Auto) 7.6, Eos % (Auto) 0.0 L, Baso % (Auto) 0.6, Neut # (Auto) 9.9 H, Lymph # (Auto) 1.5, [place] # (Auto) 0.9, Eos # (Auto) 0.0, Baso # (Auto) 0.1, PT 11.4, INR 1.03, APTT 27.6, Sodium 141, Potassium 5.5 H, Chloride 94 L, Carbon Dioxide 40 H, Anion Gap 12.5, BUN 15, Creatinine 0.60 L, Estimated Creat Clear 90, Estimated GFR 137, Est GFR ( Amer) 166, Glucose 137 H, Lactate 2.4 H, Calcium 9.9, Magnesium 2.0, Total Bilirubin 0.7, AST 47, ALT 23, Alkaline Phosphatase 119, Ammonia 93 H, Troponin I < 0.01, NT-Pro-B Natriuret Pep 64.5, Total Protein 9.4 H D, Albumin 4.5, Globulin 4.9 H, Albumin/Globulin Ratio 0.9 L 07/15/25 10:52: VBG pH 7.36, VBG pCO2 58.8 H, VBG pO2 93.0 H, VBG HCO3 32.5 H, VBG Total CO2 34.3 H, VBG O2 Saturation 97.9 H, VBG Base Excess 7.0 H, VBG Lactic Acid 2.9 H 07/15/25 10:45 07/15/25 10:45 Response Orders (Tests/Meds): ED MEDICATIONS Discontinued Medications Generic Name Dose Route Start Last Admin Trade Name Eleazarq PRN Reason Stop Dose Admin Piperacillin Sod/Tazobactam 50 mls @ 100 mls/hr 07/15/25 10:39 07/15/25 11:50 Sod 3.375 gm/ Sodium Chloride IV 07/15/25 11:08 Infused ONCE ONE Infusion Vancomycin/PEG/NADA/Lysine/Water 1.5 gm in 300 mls @ 150 mls/hr 07/15/25 10:45 07/15/25 13:49 Vancomycin 1.5gm/300ml (Peg) Premix IV 07/15/25 12:44 Infused ONCE ONE Infusion Sodium Chloride 500 mls @ 500 mls/hr 07/15/25 11:00 07/15/25 13:49 Sod Chlor 0.9% 1000ml Bag IV 07/15/25 11:59 Infused .Q1H PARDEEP Infusion Iopamidol 70 ml 07/15/25 11:42 07/15/25 11:43 Iopamidol-370 (76%);100ml Bottle IV 07/15/25 11:43 70 ml ONCE ONE Administration Miscellaneous 1 each 07/15/25 10:45 Vancomycin Consult Request NOTAPPLIC 08/14/25 10:44 CONSULT PHARMACY PARDEEP Sodium Chloride 10 ml 07/15/25 11:42 07/15/25 11:43 Sodium Chloride 0.9% 10ml Syr (Rad Only) IV 07/15/25 11:43 10 ml ONCE ONE Administration Sodium Chloride 50 ml 07/15/25 11:42 07/15/25 11:43 0.9 % Sodium Chloride 50 Ml Vial IV 07/15/25 11:43 50 ml ONCE ONE Administration ORDERS Category Date Time Status CT abdomen pelvis w con Stat Cat Scan 07/15/25 10:[address] angio chest PE protocol Stat Cat Scan 07/15/25 10:[address] head/brain wo con Stat Cat Scan 07/15/25 10:37 Completed POCUS Point of Care (ER Only) Stat Exams 07/15/25 10:41 Completed XR chest portable Stat Exams 07/15/25 10:36 Completed Ammonia Stat Lab 07/15/25 10:45 Completed Complete Blood Count Auto Diff Stat Lab 07/15/25 10:45 Completed Comprehensive Metabolic Panel Stat Lab 07/15/25 10:45 Completed Full Resp Panel w/COVID ([facility]) Routine Lab 07/15/25 14:10 Received HIV Combo Stat Lab 07/15/25 11:20 Received Hepatitis C Ab Qual. W/ RFX Stat Lab 07/15/25 11:20 Received Lactic Acid Stat Lab 07/15/25 10:45 Completed Magnesium Stat Lab 07/15/25 10:45 Completed NT Pro Brain Natriuretic Pep. Stat Lab 07/15/25 10:45 Completed PT INR [Prothrombin Time INR] Stat Lab 07/15/25 10:45 Completed PTT [Activated Partial Thrombo Time] Stat Lab 07/15/25 10:45 Completed Troponin I Q3H Lab 07/15/25 13:45 Ordered Troponin I Q3H Lab 07/15/25 16:45 Ordered Troponin I Stat Lab 07/15/25 10:45 Completed Urinalysis and Microscopic Stat Lab 07/15/25 10:38 Ordered Blood Culture Stat Micro 07/15/25 11:20 Received VBG [Venous Blood Gas] Stat RT 07/15/25 10:52 Completed MDM Narrative Medical Decision Narrative: 60-year-old male presents the emergency department via EMS from longterm facility for a 2 to 3-day history of respiratory distress, concern for pneumonia, differential diagnose include but not limited to, aspiration pneumonia, pneumonia, ARDS, pneumonitis, new onset CHF exacerbation, COPD exacerbation, pleural effusion, pulmonary edema, PE, cardiac arrhythmia, electrolyte disturbance among others. I discussed this patient's case with the attending physician Dr. Conrad he saw and examined the patient as well. Will obtain basic laboratory studies, EKG, CT ab pelvis with contrast, CTA chest with and without contrast, CT head, POCUS, chest x-ray, will obtain coagulation studies ammonia, lactic acid level, blood cultures proBNP, VBG, troponin, urinalysis, patient triggering sepsis criteria, thus will give the patient 3.375 g of IV Zosyn and pharmacy to dose vancomycin. Will give the patient 500 mL IV sodium chloride for fluid bolus upon, and not full sepsis dosing because there is concern for fluid overload/respiratory distress and upon lung auscultation exam, concern for crackles/Rales. Silas Conrad: Procedure performed was cardiac ultrasound. Procedure performed by Silas Conrad. Using the phased array probe parasternal long axis views were obtained, there appears to be somewhat thickened left ventricle, normal ejection fraction, no pericardial effusion. There are adjacent mild B-lines in the bilateral lung brown. Images were saved to a permanent archive and were technically adequate and did necessitate further imaging. CBC is notable for leukocytosis 12.5, hematocrit is 55%, MCV is elevated at 103.4, VBG is notable for normal pH of 7.36, pCO2 is mildly elevated 58.8, bicarb is elevated at 32.5, venous lactic acid level elevated at 2.9. CMP is notable for minimal hyperkalemia at 5.5, lactic acidosis at 2.4, troponin is less than 0.01, proBNP within normal limits. Coags within normal limits I reviewed the patient's CT abdomen pelvis with contrast along with corresponding radiologic report, no acute intra-abdominal findings. I reviewed the patient's CT head without contrast on the corresponding radiologic report, no acute intracranial abnormality or obvious mass progressed atrophy and chronic microvascular changes. I reviewed the patient's CTA chest with and without contrast PE protocol along the corresponding radiologic report, no evidence of pulmonary embolism or dissection/aneurysm, chronic opacification of the right lower lobe may represent recurrent pneumonia or chronic infiltrate, giving narrowing of the right lower lobe bronchus follow-up bronchoscopy, may be considered prior right lower lobe nodule no longer seen. I reviewed the patient's chest x-ray along the corresponding radiologic report, poor inspiration without definitive pneumonia. I discussed this patient case with the hospitalist physician at approximately 1:39 PM, he is in agreement with current admission plan/treatment plan for sepsis in the setting of pneumonia. I discussed need for admission with the patient at the bedside patient is in agreement with the current admission plan/treatment plan. <Silas Conrad MD - Last Filed: 07/15/25 15:01> Vital Signs Vital Signs: 07/15/25 10:35 07/15/25 14:17 Temperature 100.1 F H 99.4 F Temperature Source Axillary Pulse Rate 114 H Pulse Rate [Right] 124 H Respiratory Rate 30 H 28 H Blood Pressure 142/68 H Blood Pressure [Right Arm] 157/86 H Blood Pressure Mean [Right Arm] 109 02 Sat by Pulse Oximetry 87 L Oxygen Delivery Method Nasal Cannula Nasal Cannula Oxygen Flow Rate (LPM) 2 2 Lab Data Labs: Lab Results 07/15/25 10:45: WBC 12.5 H, RBC 5.32, Hgb 17.4, Hct 55.0 H, MCV 103.4 H, MCH 32.7 H, MCHC 31.6 L, RDW 13.7, Plt Count 294, MPV 11.2 H, Neut % (Auto) 79.1, Lymph % (Auto) 12.3, [place] % (Auto) 7.6, Eos % (Auto) 0.0 L, Baso % (Auto) 0.6, Neut # (Auto) 9.9 H, Lymph # (Auto) 1.5, [place] # (Auto) 0.9, Eos # (Auto) 0.0, Baso # (Auto) 0.1, PT 11.4, INR 1.03, APTT 27.6, Sodium 141, Potassium 5.5 H, Chloride 94 L, Carbon Dioxide 40 H, Anion Gap 12.5, BUN 15, Creatinine 0.60 L, Estimated Creat Clear 90, Estimated GFR 137, Est GFR ( Amer) 166, Glucose 137 H, Lactate 2.4 H, Calcium 9.9, Magnesium 2.0, Total Bilirubin 0.7, AST 47, ALT 23, Alkaline Phosphatase 119, Ammonia 93 H, Troponin I < 0.01, NT-Pro-B Natriuret Pep 64.5, Total Protein 9.4 H D, Albumin 4.5, Globulin 4.9 H, Albumin/Globulin Ratio 0.9 L 07/15/25 10:52: VBG pH 7.36, VBG pCO2 58.8 H, VBG pO2 93.0 H, VBG HCO3 32.5 H, VBG Total CO2 34.3 H, VBG O2 Saturation 97.9 H, VBG Base Excess 7.0 H, VBG Lactic Acid 2.9 H Response Orders (Tests/Meds): ED MEDICATIONS Discontinued Medications Generic Name Dose Route Start Last Admin Trade Name Freq PRN Reason Stop Dose Admin Piperacillin Sod/Tazobactam 50 mls @ 100 mls/hr 07/15/25 10:39 07/15/25 11:50 Sod 3.375 gm/ Sodium Chloride IV 07/15/25 11:08 Infused ONCE ONE Infusion Vancomycin/PEG/NADA/Lysine/Water 1.5 gm in 300 mls @ 150 mls/hr 07/15/25 10:45 07/15/25 13:49 Vancomycin 1.5gm/300ml (Peg) Premix IV 07/15/25 12:44 Infused ONCE ONE Infusion Sodium Chloride 500 mls @ 500 mls/hr 07/15/25 11:00 07/15/25 13:49 Sod Chlor 0.9% 1000ml Bag IV 07/15/25 11:59 Infused .Q1H PARDEEP Infusion Iopamidol 70 ml 07/15/25 11:42 07/15/25 11:43 Iopamidol-370 (76%);100ml Bottle IV 07/15/25 11:43 70 ml ONCE ONE Administration Miscellaneous 1 each 07/15/25 10:45 Vancomycin Consult Request NOTAPPLIC 08/14/25 10:44 CONSULT PHARMACY PARDEEP Sodium Chloride 10 ml 07/15/25 11:42 07/15/25 11:43 Sodium Chloride 0.9% 10ml Syr (Rad Only) IV 07/15/25 11:43 10 ml ONCE ONE Administration Sodium Chloride 50 ml 07/15/25 11:42 07/15/25 11:43 0.9 % Sodium Chloride 50 Ml Vial IV 07/15/25 11:43 50 ml ONCE ONE Administration ORDERS Category Date Time Status CT abdomen pelvis w con Stat Cat Scan 07/15/25 10:[address] angio chest PE protocol Stat Cat Scan 07/15/25 10:[address] head/brain wo con Stat Cat Scan 07/15/25 10:37 Completed POCUS Point of Care (ER Only) Stat Exams 07/15/25 10:41 Completed XR chest portable Stat Exams 07/15/25 10:36 Completed Ammonia Stat Lab 07/15/25 10:45 Completed Complete Blood Count Auto Diff Stat Lab 07/15/25 10:45 Completed Comprehensive Metabolic Panel Stat Lab 07/15/25 10:45 Completed Full Resp Panel w/COVID ([facility]) Routine Lab 07/15/25 14:10 Received HIV Combo Stat Lab 07/15/25 11:20 Received Hepatitis C Ab Qual. W/ RFX Stat Lab 07/15/25 11:20 Received Lactic Acid Stat Lab 07/15/25 10:45 Completed Magnesium Stat Lab 07/15/25 10:45 Completed NT Pro Brain Natriuretic Pep. Stat Lab 07/15/25 10:45 Completed PT INR [Prothrombin Time INR] Stat Lab 07/15/25 10:45 Completed PTT [Activated Partial Thrombo Time] Stat Lab 07/15/25 10:45 Completed Troponin I Q3H Lab 07/15/25 13:45 Ordered Troponin I Q3H Lab 07/15/25 16:45 Ordered Troponin I Stat Lab 07/15/25 10:45 Completed Urinalysis and Microscopic Stat Lab 07/15/25 10:38 Ordered Blood Culture Stat Micro 07/15/25 11:20 Received VBG [Venous Blood Gas] Stat RT 07/15/25 10:52 Completed ECG Data Tracing #1: ECG Narrative: Independently interpreted by me rate is 120, rhythm is regular, axis is normal, no ST elevation in anatomical contiguous leads, sinus tachycardia QTc 393. MDM Narrative Medical Decision Narrative: 60-year-old male presents the emergency department via EMS from longterm facility for a 2 to 3-day history of respiratory distress, concern for pneumonia, differential diagnose include but not limited to, aspiration pneumonia, pneumonia, ARDS, pneumonitis, new onset CHF exacerbation, COPD exacerbation, pleural effusion, pulmonary edema, PE, cardiac arrhythmia, electrolyte disturbance among others. I discussed this patient's case with the attending physician Dr. Conrad he saw and examined the patient as well. Will obtain basic laboratory studies, EKG, CT ab pelvis with contrast, CTA chest with and without contrast, CT head, POCUS, chest x-ray, will obtain coagulation studies ammonia, lactic acid level, blood cultures proBNP, VBG, troponin, urinalysis, patient triggering sepsis criteria, thus will give the patient 3.375 g of IV Zosyn and pharmacy to dose vancomycin. Will give the patient 500 mL IV sodium chloride for fluid bolus upon, and not full sepsis dosing because there is concern for fluid overload/respiratory distress and upon lung auscultation exam, concern for crackles/Rales. Silas Conrad: Procedure performed was cardiac ultrasound. Procedure performed by Silas Conrad. Using the phased array probe parasternal long axis views were obtained, there appears to be somewhat thickened left ventricle, normal ejection fraction, no pericardial effusion. There are adjacent mild B-lines in the bilateral lung brown. Images were saved to a permanent archive and were technically adequate and did necessitate further imaging. CBC is notable for leukocytosis 12.5, hematocrit is 55%, MCV is elevated at 103.4, VBG is notable for normal pH of 7.36, pCO2 is mildly elevated 58.8, bicarb is elevated at 32.5, venous lactic acid level elevated at 2.9. CMP is notable for minimal hyperkalemia at 5.5, lactic acidosis at 2.4, troponin is less than 0.01, proBNP within normal limits. Coags within normal limits I reviewed the patient's CT abdomen pelvis with contrast along with corresponding radiologic report, no acute intra-abdominal findings. I reviewed the patient's CT head without contrast on the corresponding radiologic report, no acute intracranial abnormality or obvious mass progressed atrophy and chronic microvascular changes. I reviewed the patient's CTA chest with and without contrast PE protocol along the corresponding radiologic report, no evidence of pulmonary embolism or dissection/aneurysm, chronic opacification of the right lower lobe may represent recurrent pneumonia or chronic infiltrate, giving narrowing of the right lower lobe bronchus follow-up bronchoscopy, may be considered prior right lower lobe nodule no longer seen. I reviewed the patient's chest x-ray along the corresponding radiologic report, poor inspiration without definitive pneumonia. I discussed this patient case with the hospitalist physician at approximately 1:39 PM, he is in agreement with current admission plan/treatment plan for sepsis in the setting of pneumonia. I discussed need for admission with the patient at the bedside patient is in agreement with the current admission plan/treatment plan. Silas Conrad MD: I was consulted by the KAELYN, and we discussed the complexity of the problems being addressed. I approved the treatment and management plan for this patient's care in the emergency department, thus performing a substantive portion of the medical decision making.
[2025-07-15 10:57] LABS: Hematocrit 55.0 % (42.0-52.0); Hemoglobin 17.4 g/dL (14.1-18.0); Immature Granulocytes % 0.4 %; Mean Corpuscular HGB Conc 31.6 g/dL (31.8-35.4); Mean Corpuscular Hemoglobin 32.7 pg (27.0-31.2); Mean Corpuscular Volume 103.4 fl (80-94); Nucleated Red Blood Cells % 0 %; Platelet Count 294 K/mm3 (142-424); Red Blood Count 5.32 M/mm3 (4.60-6.20); Red Cell Distribution Width-SD 52.0 fL; White Blood Count 12.5 K/mm3 (4.8-10.8)
[2025-07-15 10:58] LABS: VBG HCO3 32.5 mmol/L (23-30); VBG PCO2 58.8 mmol/L (35-51); VBG PH 7.36 mmol/L (7.31-7.41); VBG PO2 93.0 mmol/L (28-40)
[2025-07-15 10:59] LABS: Lactate Venous 2.9 mmol/L (0.4-2.0)
[2025-07-15 11:17] LABS: Ammonia 93 umol/L (9-30)
[2025-07-15 11:18] LABS: Alanine Aminotransferase 23 U/L (12-78); Albumin Level 4.5 g/dl (3.5-5.0); Albumin/Globulin Ratio 0.9 (1.1-1.8); Alkaline Phosphatase 119 U/L (38-126); Aspartate Amino Transferase 47 U/L (17-59); Bilirubin,Total 0.7 mg/dl (0.2-1.3); Blood Urea Nitrogen 15 mg/dl (9-20); Calcium 9.9 mg/dl (8.4-10.2); Chloride 94 mmol/L (98-107); Creatinine Clearance Estimated 90 mL/min (50-200); Creatinine,Serum 0.60 mg/dl (0.66-1.25); Estimated Glomerular Filt Rate 137 ml/min (>60); GFR (African American) 166 ML/MIN (>60); Globulin 4.9 g/dL (1.3-3.2); Glucose 137 mg/dl (74-100); Magnesium 2.0 mg/dl (1.6-2.3); Potassium 5.5 mmoL/L (3.5-5.1); Sodium 141 mmol/L (136-145); Total Protein,Serum 9.4 g/dl (6.3-8.2)
[2025-07-15 11:20] LABS: INR 1.03 (0.9-1.1); Prothrombin Time 11.4 seconds (10.1-12.5)
[2025-07-15 11:24] LABS: Anion Gap 12.5 mEq/L (5-15); Carbon Dioxide 40 mmol/L (22.0-30.0)
[2025-07-15] MEDS: PIPERACILLIN/TAZO 3.375 GM in 0.9 % SODIUM CHLORIDE 50 ML IV (11:27)
[2025-07-15] MEDS: 0.9 % SODIUM CHLORIDE 1000ML 500 ML IV (11:27)
[2025-07-15 11:29] LABS: NT Pro Brain Natriuretic Pep. 64.5 pg/mL (0-125)
[2025-07-15 11:30] LABS: Troponin I < 0.01 ng/ml (0.00-0.034)
[2025-07-15 11:39] LABS: Activated Partial Thrombo Time 27.6 seconds (22.8-30.6)
[2025-07-15] MEDS: IOPAMIDOL-370 (76%);100ML BOTTLE 70 ML IV (11:43)
[2025-07-15] MEDS: SODIUM CHLORIDE 0.9% 10ML SYR (RAD ONLY) 10 ML IV (11:43)
[2025-07-15] MEDS: 0.9 % SODIUM CHLORIDE 50 ML VIAL IV (11:43)
[2025-07-15] MEDS: VANCOMYCIN/WATER FOR INJ (PEG) 1.5 GM/300 ML PIGGYBACK IV (11:50)
--- NOTE | 2025-07-15 14:14 | PC.NURSE ---
report called to 2nd floor RN
[2025-07-15 14:16] LABS: Adenovirus,PCR Not Detected (NotDetected); Chlamydophila Pneumoniae, PCR Not Detected (NotDetected); Coronavirus 19, PCR Not Detected (NotDetected); Coronovirus HKU1,PCR Not Detected (NotDetected); Influenza A, PCR Not Detected (NotDetected); Influenza AH1, 2009 Not Detected (NotDetected); Influenza AH1, PCR Not Detected (NotDetected); Influenza AH3,PCR Not Detected (NotDetected); Influenza B, PCR Not Detected (NotDetected); Mycoplasma Pneumoniae, PCR Not Detected (NotDetected); Parainfluenza 1, PCR Not Detected (NotDetected); Parainfluenza 2, PCR Not Detected (NotDetected); Parainfluenza 3, PCR Not Detected (NotDetected); Parainfluenza 4, PCR Not Detected (NotDetected)
[2025-07-15 14:17] VITALS: BP 142/68; PULSE 114; RESP 28; TEMP 37.4; O2SAT 93
--- NOTE | 2025-07-15 14:17 | SW/DCPLANNER ---
Addendum entered by Elidia Linares 07/17/25 10:40: I have updated Marianela taylor/ [facility] that patient will return [facility] level of care today. Original Note: Patient currently resides at [facility] level of care. I have updated Marianela taylor/ [facility] that patient is being admitted. CM will continue to follow up.
[2025-07-15 15:00] LABS: Reflex Lactic Add Lactic Reflex
[2025-07-15 15:45] VITALS: BP 119/64; PULSE 119; RESP 13; TEMP 37.1; O2SAT 95; BMI 24.8
[2025-07-15 15:58] LABS: Lactic Acid Follow Up (RFLX 1) 3.7 mmol/L (0.7-2.1)
[2025-07-15 16:09] LABS: Troponin I < 0.01 ng/ml (0.00-0.034)
--- NOTE | 2025-07-15 16:30 | P.CONPHA_ITS ---
Pharmacy Intervention Comments: MED LIST UPDATED WITH [facility]
--- NOTE | 2025-07-15 16:30 | HMH.PHAINT1 ---
Pharmacy Intervention Comments: MED LIST UPDATED WITH [facility]
--- NOTE | 2025-07-15 16:56 | EXP.HP ---
History of Present Illness *Admission Date: 07/15/25 *Reason for visit:: Shortness of breath, fevers *History of present illness: Dean Fountain is a 60-year-old male with a medical history significant for suspected anoxic brain injury in 2019, functional paraplegic, chronic dysphagia with PEG tube dependence, former foreign body aspiration, cognitive impairment, chronic alcoholism presented from skilled nursing with a few days of shortness of breath, accessory muscle use, fever, abdominal distention. On arrival, patient was hypoxic requiring 2 L. Unfortunately, patient is not able to participate in interview due to chronic cognitive impairment. History was obtained via chart review. Workup of these ED significant for WBC 12.5 MCV 103, compensated VBG, potassium 5.5, bicarb 40, lactic acid 3.7, ammonia 93, full respiratory panel normal. CTA chest suggestive of recurrent versus chronic right lower lobe infiltrate. CT abdomen/pelvis did not show acute findings. Patient was tachycardic with leukocytosis and sepsis criteria for suspected aspiration pneumonia failure requiring 2 L. Given these findings, ED provider discussed case with me and I decided to admit patient for further evaluation and management. [facility] Disclaimer: The information contained in this section may have been updated after the patient was seen, as this information can be updated by other users. Medical History (Updated 07/15/25 @ 13:41 by AYLA Swanson) History of hemoptysis History of smoking 30 or more pack years Dislodged gastrostomy tube Cognitive impairment Flaccid paraplegia Dysphagia GERD (gastroesophageal reflux disease) COPD (chronic obstructive pulmonary disease) Hemoptysis Seizures Lung nodules Gastrostomy tube in place Surgical History S/P percutaneous endoscopic gastrostomy (PEG) tube placement Hx of esophagogastroduodenoscopy Family History Mother Non Hodgkin's lymphoma Father Lung cancer Social History (Updated 07/15/25 @ 15:13 by Emerald Escobedo RN) Smoking Status: Never smoker years smoked: 30 smoking status stop date: 2018 second hand exposure: No alcohol intake: former substance use type: denies use current occupational status: disabled Travel in the last 8 weeks?: None household members: other housing: skilled nursing caffeine: No Have you lived/traveled outside [place] in past 30 days?: No Contact w/someone who lives/traveled outside US past 30 days?: No Exposure to someone with infectious disease in past 14 days?: No Do you have a fever (greater than 100.4 F or 38 C)?: No Have you tested positive for COVID-19?: No Exposed to someone with COVID-19 in past 14 days?: No Do you have a sore throat?: No Do you have a cough?: No Do you have any weakness?: No Are you experiencing any nausea/vomitting?: No Do you have any diarrhea?: No Are you experiencing any unusual bleeding?: No Do you have any muscle aches/pain?: No Do you have any abdominal pain?: No Are you experiencing loss of taste or smell?: No Other Medical History Have you received the Flu Vaccine for this season: Yes Have you received the Pneumonia Vaccine: Yes Meds Home Medications and Allergies Home Medications ?Medication ?Instructions ?Recorded ?Confirmed ?Type aspirin 81 mg chewable tablet 81 mg feeding tube DAILY 12/24/22 07/15/25 History folic acid 0.8 mg capsule 0.8 mg feeding tube DAILY 12/24/22 07/15/25 History metoclopramide HCl 5 mg tablet 5 mg feeding tube BID 12/24/22 07/15/25 History potassium chloride 20 mEq/15 mL 20 meq feeding tube BID 12/24/22 07/15/25 History oral liquid quetiapine 100 mg tablet 50 mg feeding tube TID 12/24/22 07/15/25 History thiamine HCl (vitamin B1) 100 mg 100 mg feeding tube DAILY 12/24/22 07/15/25 History tablet valproic acid (as sodium salt) 250 500 mg feeding tube BID 12/24/22 07/15/25 History mg/5 mL oral solution Lactobacillus acidophilus 1 1,000 mmu cells PO DAILY 12/25/22 07/15/25 History billion cell capsule melatonin 3 mg tablet 3 mg PO HS 12/25/22 07/15/25 History polyethylene glycol 3350 17 17 g PO DAILY 12/25/22 07/15/25 History gram/dose oral powder (Miralax) doxazosin 1 mg tablet 1 mg feeding tube DAILY 05/16/24 07/15/25 History alprazolam 0.25 mg tablet 0.25 mg feeding tube HS 07/15/25 07/15/25 History azithromycin 250 mg tablet 250 mg feeding tube DAILY 07/15/25 07/15/25 History cholecalciferol (vitamin D3) 50 100 mcg PO DAILY 07/15/25 07/15/25 History mcg (2,000 unit) tablet ipratropium 0.5 mg-albuterol 3 mg 3 ml inhalation TID 07/15/25 07/15/25 History (2.5 mg base)/3 mL nebulization soln menthol 0.44 %-zinc oxide 20.6 % 1 applic topical QODHS 07/15/25 07/15/25 History topical ointment (Calmoseptine) pantoprazole 40 mg granules 40 mg PO DAILY 07/15/25 07/15/25 History delayed-release for susp in packet propylene glycol 0.6 % eye drops 1 drp ophthalmic (eye) QID 07/15/25 07/15/25 History (Systane Balance) selenium sulfide 1 % shampoo 1 applic topical MOFR 07/15/25 07/15/25 History (Selsun Blue) New Prescriptions to Start Prescriptions: Allergies Allergy/AdvReac Type Severity Reaction Status Date / Time No Known Allergies Allergy Verified 05/28/24 10:34 Exam Data for Last 24 hours Vital signs and Labs for Last 24 Hours: Temp Pulse Resp BP Pulse Ox O2 Del Method O2 Flow Rate 98.7 F 119 H 13 119/64 95 Nasal Cannula 2 07/15/25 15:45 07/15/25 15:45 07/15/25 15:45 07/15/25 15:45 07/15/25 15:45 07/15/25 15:45 07/15/25 15:45 Laboratory Results - last 24 hr 07/15/25 10:45: WBC 12.5 H, RBC 5.32, Hgb 17.4, Hct 55.0 H, MCV 103.4 H, MCH 32.7 H, MCHC 31.6 L, RDW 13.7, Plt Count 294, MPV 11.2 H, Neut % (Auto) 79.1, Lymph % (Auto) 12.3, Burnett % (Auto) 7.6, Eos % (Auto) 0.0 L, Baso % (Auto) 0.6, Neut # (Auto) 9.9 H, Lymph # (Auto) 1.5, Burnett # (Auto) 0.9, Eos # (Auto) 0.0, Baso # (Auto) 0.1, PT 11.4, INR 1.03, APTT 27.6, Sodium 141, Potassium 5.5 H, Chloride 94 L, Carbon Dioxide 40 H, Anion Gap 12.5, BUN 15, Creatinine 0.60 L, Estimated Creat Clear 90, Estimated GFR 137, Est GFR ( Amer) 166, Glucose 137 H, Lactate 2.4 H, Calcium 9.9, Magnesium 2.0, Total Bilirubin 0.7, AST 47, ALT 23, Alkaline Phosphatase 119, Ammonia 93 H, Troponin I < 0.01, NT-Pro-B Natriuret Pep 64.5, Total Protein 9.4 H D, Albumin 4.5, Globulin 4.9 H, Albumin/Globulin Ratio 0.9 L 07/15/25 10:52: VBG pH 7.36, VBG pCO2 58.8 H, VBG pO2 93.0 H, VBG HCO3 32.5 H, VBG Total CO2 34.3 H, VBG O2 Saturation 97.9 H, VBG Base Excess 7.0 H, VBG Lactic Acid 2.9 H 07/15/25 14:10: Chlamy pneumoniae PCR Not detected, Adenovirus (PCR) Not detected, B. pertussis DNA (PCR) Not detected, Coronavirus OC43 (PCR) Not detected, Coronavirus HKU1 (PCR) Not detected, Coronavirus 229E (PCR) Not detected, SARS-CoV-2 (PCR) Not detected, Coronavirus NL63 (PCR) Not detected, Human Metapneumovir PCR Not detected, Influenza A (H1) PCR Not detected, Influ A (H1N1/09) PCR Not detected, Influenza A (H3) PCR Not detected, Influenza Type A (PCR) Not detected, Influenza Type B (PCR) Not detected, M. pneumoniae (PCR) Not detected, Parainfluenza 1 (PCR) Not detected, Parainfluenza 2 (PCR) Not detected, Parainfluenza 3 (PCR) Not detected, Parainfluenza 4 (PCR) Not detected, RSV (PCR) Not detected, Entero/Rhino (PCR) Not detected 07/15/25 15:17: Lactate 3.7 H, Troponin I < 0.01 I & O for Last 24 hours: Intake & Output 07/12/25 07/13/25 07/14/25 07/15/25 23:59 23:59 23:59 23:59 Intake Total 850 / 850 Output Total 0 / 0 Balance 850 / 850 Weight 76.402 kg Constitutional Constitutional: no acute distress and chronically ill appearing Comments: Pleasant cognitive impairment. *Routine HEENT Exam Head: Present normocephalic Eye: Present EOMI and PERRL ENT: Present mucous membranes moist *Routine Neck Exam Neck: Present supple; Absent lymphadenopathy *Routine Respiratory Exam Respiratory: Present CTA bilaterally *Routine Cardiovascular Exam Cardiovascular: Present RRR *Routine Abdominal Exam Abdominal: Present soft and normoactive bowel sounds; Absent tenderness Comments: PEG tube in place. *Routine Rectal Exam Rectal:: deferred *Routine Genitalia Exam Genitalia:: deferred *Routine Extremities Exam Extremities: Absent cyanosis, clubbing or edema *Routine Skin Exam Skin: Present warm; Absent rash *Routine Neurological Exam Neurological: Present alert Assessment and Plan *Assessment and plan (1) Sepsis: Status: Acute Category: Medical Code(s): A41.9 - Sepsis, unspecified organism (2) Pneumonia: Status: Acute Category: Medical Code(s): J18.9 - Pneumonia, unspecified organism Plan Dean Fountain is a 60-year-old male with a medical history significant for suspected anoxic brain injury in 2019, functional paraplegic, chronic dysphagia with PEG tube dependence, former foreign body aspiration, cognitive impairment, chronic alcoholism presented from skilled nursing with a few days of shortness of breath, accessory muscle use, fever, abdominal distention. On arrival, patient was hypoxic requiring 2 L. Unfortunately, patient is not able to participate in interview due to chronic cognitive impairment. History was obtained via chart review. Workup of these ED significant for WBC 12.5 MCV 103, compensated VBG, potassium 5.5, bicarb 40, lactic acid 3.7, ammonia 93, full respiratory panel normal. CTA chest suggestive of recurrent versus chronic right lower lobe infiltrate. CT abdomen/pelvis did not show acute findings. Patient was tachycardic with leukocytosis and sepsis criteria for suspected aspiration pneumonia failure requiring 2 L. Given these findings, ED provider discussed case with me and I decided to admit patient for further evaluation and management. #Sepsis #Suspected aspiration pneumonia #Chronic dysphagia with PEG tube dependence ? Per skilled nursing, patient has had shortness of breath, accessory muscle use, fevers at skilled nursing. CTA chest suggestive of recurrent versus chronic right lower lobe infiltrate. ? Initial WBC 12.5 with tachycardia and requiring new 2 L nasal cannula. ? History of anoxic brain injury in 2019, PEG tube dependence due to chronic dysphagia. Unfortunately puts him at high risk for aspiration. Aspirated foreign object last year. ? Continue IV Zosyn 3.375 g every 6 hours. ? N.p.o. for now due to suspected aspiration, started IV LR at 75 mL/h. ? Follow-up sputum, blood cultures. ? Follow-up CBC, CRP in the morning. #Mood disorder ? Continue home medications once reconciled. #BPH ? Continue home doxazosin once reconciled. #GERD ? Continue home PPI. #Macrocytosis ? Follow-up morning B12, folate, #History of anoxic brain injury #Functional paraplegia #Debility #Cognitive impairment ? Continue supportive therapy. Full code DVT prophylaxis:
[2025-07-15 17:26] LABS: Reflex Lactic (2 hrs) Add Lactic Reflex
[2025-07-15 19:05] LABS: C-Reactive Protein 6.3 mg/L (0-4)
[2025-07-15 20:00] VITALS: BP 121/69; PULSE 109; RESP 18; TEMP 37.3; O2SAT 91
[2025-07-15 20:04] LABS: Procalcitonin 0.068 ng/mL (0.0-2.0)
[2025-07-15] MEDS: LACTATED RINGERS 1000ML 1,000 ML 75 ML IV (20:10)
[2025-07-15 20:25] LABS: Lactic Acid Follow up (RFLX 2) 0.9 mmol/L (0.7-2.1)
[2025-07-15 21:09] LABS: Troponin I < 0.01 ng/ml (0.00-0.034)
[2025-07-15 21:14] LABS: Microscopic, Urine URINE MICROSCOPIC (MICROSCOPIC)
[2025-07-15 21:32] LABS: Bilirubin,Urine Negative (Negative); Color,Urine YELLOW (Yellow); Glucose,Urine (UA) Negative (Negative); Ketones,Urine Negative (Negative); Leukocyte Esterase,Urine Negative (Negative); PH,Urine 8.0 (5.0-8.5); Protein,Urine Negative (Negative); Specific Gravity, Urine 1.010 (1.005-1.030); Urobilinogen,Urine 0.2 EU/dl (0.2)
[2025-07-15 22:08] LABS: Bacteria,Urine Trace /lpf; WBC,Urine Occasional #/hpf (0-3)
[2025-07-16] VITALS (8 sets, daily range): BP systolic 117–145; BP diastolic 62–82; PULSE 61–97; RESP 16–19; TEMP 36.4–37.1; O2SAT 92–95; BMI 24.5
[2025-07-16 00:35] LABS: Hepatitis C Ab Qual. W/ RFX NEGATIVE (Negative)
[2025-07-16] MEDS: VANCOMYCIN CONSULT REQUEST 1 EACH NOTAPPLIC (03:40)
[2025-07-16] MEDS: VANCOMYCIN/WATER FOR INJ (PEG) 1.25 GM/250 ML PIGGYBACK IV ×2 (04:19→15:03)
[2025-07-16] MEDS: PIPERCILLIN/TAZO 3.375 GM in 0.9 % SODIUM CHLORIDE 50 ML IV (04:19)
[2025-07-16 06:55] LABS: Alanine Aminotransferase 15 U/L (12-78); Albumin Level 3.4 g/dl (3.5-5.0); Albumin/Globulin Ratio 0.9 (1.1-1.8); Alkaline Phosphatase 110 U/L (38-126); Anion Gap 7.9 mEq/L (5-15); Aspartate Amino Transferase 49 U/L (17-59); Bilirubin,Total 0.7 mg/dl (0.2-1.3); Blood Urea Nitrogen 17 mg/dl (9-20); Calcium 8.8 mg/dl (8.4-10.2); Carbon Dioxide 36 mmol/L (22.0-30.0); Chloride 100 mmol/L (98-107); Creatinine Clearance Estimated 82 mL/min (50-200); Creatinine,Serum 0.70 mg/dl (0.66-1.25); Estimated Glomerular Filt Rate 115 ml/min (>60); GFR (African American) 139 ML/MIN (>60); Globulin 3.8 g/dL (1.3-3.2); Glucose 104 mg/dl (74-100); Hematocrit 47.7 % (42.0-52.0); Immature Granulocytes % 0.2 %; Mean Corpuscular HGB Conc 31.7 g/dL (31.8-35.4); Mean Corpuscular Hemoglobin 32.8 pg (27.0-31.2); Mean Corpuscular Volume 103.5 fl (80-94); Nucleated Red Blood Cells % 0 %; Platelet Count 301 K/mm3 (142-424); Potassium 3.9 mmoL/L (3.5-5.1); Red Blood Count 4.61 M/mm3 (4.60-6.20); Red Cell Distribution Width-SD 52.5 fL; Sodium 140 mmol/L (136-145); Total Protein,Serum 7.2 g/dl (6.3-8.2); White Blood Count 9.7 K/mm3 (4.8-10.8)
[2025-07-16 07:42] LABS: Hemoglobin 15.3 g/dL (14.1-18.0)
--- NOTE | 2025-07-16 08:01 | EXP.PHA.CONS ---
Pharmacy Consult Date: 07/16/25 Time: 08:02 Referring provider: FRANCESCA CARRENO APRN Reason for Consult:: VANCOMYCIN DOSING CONSULT Allergies Allergy/AdvReac Type Severity Reaction Status Date / Time No Known Allergies Allergy Verified 05/28/24 10:34 Home Medications ?Medication ?Instructions ?Recorded ?Confirmed ?Type aspirin 81 mg chewable tablet 81 mg feeding tube DAILY 12/24/22 07/15/25 History folic acid 0.8 mg capsule 0.8 mg feeding tube DAILY 12/24/22 07/15/25 History metoclopramide HCl 5 mg tablet 5 mg feeding tube BID 12/24/22 07/15/25 History potassium chloride 20 mEq/15 mL 20 meq feeding tube BID 12/24/22 07/15/25 History oral liquid quetiapine 100 mg tablet 50 mg feeding tube TID 12/24/22 07/15/25 History thiamine HCl (vitamin B1) 100 mg 100 mg feeding tube DAILY 12/24/22 07/15/25 History tablet valproic acid (as sodium salt) 250 500 mg feeding tube BID 12/24/22 07/15/25 History mg/5 mL oral solution Lactobacillus acidophilus 1 1,000 mmu cells PO DAILY 12/25/22 07/15/25 History billion cell capsule melatonin 3 mg tablet 3 mg PO HS 12/25/22 07/15/25 History polyethylene glycol 3350 17 17 g PO DAILY 12/25/22 07/15/25 History gram/dose oral powder (Miralax) doxazosin 1 mg tablet 1 mg feeding tube DAILY 05/16/24 07/15/25 History alprazolam 0.25 mg tablet 0.25 mg feeding tube HS 07/15/25 07/15/25 History azithromycin 250 mg tablet 250 mg feeding tube DAILY 07/15/25 07/15/25 History cholecalciferol (vitamin D3) 50 100 mcg PO DAILY 07/15/25 07/15/25 History mcg (2,000 unit) tablet ipratropium 0.5 mg-albuterol 3 mg 3 ml inhalation TID 07/15/25 07/15/25 History (2.5 mg base)/3 mL nebulization soln menthol 0.44 %-zinc oxide 20.6 % 1 applic topical QODHS 07/15/25 07/15/25 History topical ointment (Calmoseptine) pantoprazole 40 mg granules 40 mg PO DAILY 07/15/25 07/15/25 History delayed-release for susp in packet propylene glycol 0.6 % eye drops 1 drp ophthalmic (eye) QID 07/15/25 07/15/25 History (Systane Balance) selenium sulfide 1 % shampoo 1 applic topical MOFR 07/15/25 07/15/25 History (Selsun Blue) New Prescriptions to Start Prescriptions: Height: 1.75 m Weight: 75.07 kg Laboratory Results:: Laboratory Results - last 24 hr 07/15/25 10:45: WBC 12.5 H, RBC 5.32, Hgb 17.4, Hct 55.0 H, MCV 103.4 H, MCH 32.7 H, MCHC 31.6 L, RDW 13.7, Plt Count 294, MPV 11.2 H, Neut % (Auto) 79.1, Lymph % (Auto) 12.3, Davie % (Auto) 7.6, Eos % (Auto) 0.0 L, Baso % (Auto) 0.6, Neut # (Auto) 9.9 H, Lymph # (Auto) 1.5, Davie # (Auto) 0.9, Eos # (Auto) 0.0, Baso # (Auto) 0.1, PT 11.4, INR 1.03, APTT 27.6, Sodium 141, Potassium 5.5 H, Chloride 94 L, Carbon Dioxide 40 H, Anion Gap 12.5, BUN 15, Creatinine 0.60 L, Estimated Creat Clear 90, Estimated GFR 137, Est GFR ( Amer) 166, Glucose 137 H, Lactate 2.4 H, Calcium 9.9, Magnesium 2.0, Total Bilirubin 0.7, AST 47, ALT 23, Alkaline Phosphatase 119, Ammonia 93 H, Troponin I < 0.01, NT-Pro-B Natriuret Pep 64.5, Total Protein 9.4 H D, Albumin 4.5, Globulin 4.9 H, Albumin/Globulin Ratio 0.9 L 07/15/25 10:52: VBG pH 7.36, VBG pCO2 58.8 H, VBG pO2 93.0 H, VBG HCO3 32.5 H, VBG Total CO2 34.3 H, VBG O2 Saturation 97.9 H, VBG Base Excess 7.0 H, VBG Lactic Acid 2.9 H 07/15/25 11:20: HCV Ab TANESHA w/Rflx PCR Qn Negative, HIV Ag/Ab Combo Qual Negative 07/15/25 14:10: Chlamy pneumoniae PCR Not detected, Adenovirus (PCR) Not detected, B. pertussis DNA (PCR) Not detected, Coronavirus OC43 (PCR) Not detected, Coronavirus HKU1 (PCR) Not detected, Coronavirus 229E (PCR) Not detected, SARS-CoV-2 (PCR) Not detected, Coronavirus NL63 (PCR) Not detected, Human Metapneumovir PCR Not detected, Influenza A (H1) PCR Not detected, Influ A (H1N1/09) PCR Not detected, Influenza A (H3) PCR Not detected, Influenza Type A (PCR) Not detected, Influenza Type B (PCR) Not detected, M. pneumoniae (PCR) Not detected, Parainfluenza 1 (PCR) Not detected, Parainfluenza 2 (PCR) Not detected, Parainfluenza 3 (PCR) Not detected, Parainfluenza 4 (PCR) Not detected, RSV (PCR) Not detected, Entero/Rhino (PCR) Not detected 07/15/25 15:17: Lactate 3.7 H, Troponin I < 0.01, C-Reactive Protein 6.3 H, Procalcitonin 0.068 07/15/25 19:52: Lactate 0.9, Troponin I < 0.01 07/15/25 20:00: Urine Color Yellow, Urine Appearance Clear, Urine pH 8.0, Ur Specific Jet 1.010, Urine Protein Negative, Urine Glucose (UA) Negative, Urine Ketones Negative, Urine Blood Trace-i, Urine Nitrate Negative, Urine Bilirubin Negative, Urine Urobilinogen 0.2, Ur Leukocyte Esterase Negative, Urine RBC 3-5, Urine WBC Occasional, Urine Bacteria Trace 07/16/25 05:37: WBC 9.7, RBC 4.61, Hgb 15.3 D, Hct 47.7, MCV 103.5 H, MCH 32.8 H, MCHC 31.7 L, RDW 13.7, Plt Count 301, MPV 11.5 H, Neut % (Auto) 63.3, Lymph % (Auto) 21.4, Davie % (Auto) 13.6 H, Eos % (Auto) 0.9, Baso % (Auto) 0.6, Neut # (Auto) 6.1, Lymph # (Auto) 2.1, Davie # (Auto) 1.3 H, Eos # (Auto) 0.1, Baso # (Auto) 0.1, Sodium 140, Potassium 3.9 D, Chloride 100, Carbon Dioxide 36 H, Anion Gap 7.9, BUN 17, Creatinine 0.70, Estimated Creat Clear 82, Estimated GFR 115, Est GFR ( Amer) 139, Glucose 104 H D, Calcium 8.8, Total Bilirubin 0.7, AST 49, ALT 15 D, Alkaline Phosphatase 110, Total Protein 7.2, Albumin 3.4 L D, Globulin 3.8 H, Albumin/Globulin Ratio 0.9 L Medical History: Medical History (Updated 07/15/25 @ 13:41 by AYLA Swanson) History of hemoptysis History of smoking 30 or more pack years Dislodged gastrostomy tube Cognitive impairment Flaccid paraplegia Dysphagia GERD (gastroesophageal reflux disease) COPD (chronic obstructive pulmonary disease) Hemoptysis Seizures Lung nodules Gastrostomy tube in place Assessment and Plan Assessment and plan all Dx Assessment and Plan for all problems:: Pharmacokinetic dosing service Objective: Age: 60 yo Serum creatinine: 0.7 mg/dL Height: 68.9 Inches Weight (kg): 75.07 Diagnosis: PNEUMONIA/SEPSIS Assessment: IBW (kg): 70.47 Dosing wt(kg): 75.07 Estimated Creatinine clearance (ml/min): 110.5 CRCL method: Cockcroft and Gault using ibw(default). Drug selected: Vancomycin Loading dose (mg): 1500 MG Vd (liters): 52.5 (factor used: 0.7 L/kg) Issa (hr-1): 0.096 Half life (hrs): 7.22 CLvanco=?? 5.040 L/hr Recommended dose: 1250 mg Interval: 12 hrs Infusion time (hrs): 2.0 Predicted peak (mcg/mL): 31.7 Predicted trough (mcg/mL): 12.14 Total body weight is being used for vancomycin dosing. Recommendations: Give Vancomycin 1250 mg q 12 hrs with an expected Cpeak of 31.7 mcg/ml and an expected Ctrough of 12.14 mcg/ml AUC 0-24 /KATHERIN Data: KATHERIN 0.5 mcg/mL:?? AUC/KATHERIN:? 992.1 KATHERIN 1.0 mcg/mL:?? AUC/KATHERIN:? 496.0 --------- KATHERIN 1.5 mcg/mL:?? AUC/KATHERIN:? 330.7 KATHERIN 2.0 mcg/mL:?? AUC/KATHERIN:? 248.0 Thank you for the consult
[2025-07-16] MEDS: LACTATED RINGERS 1000ML 1,000 ML 75 ML IV (08:13)
[2025-07-16 08:21] LABS: C-Reactive Protein 8.8 mg/L (0-4)
--- NOTE | 2025-07-16 10:21 | DIET.NUTRFU ---
spoke to nurse at custodial. Patient depends on tubefeeding for 100% of nutritional needs. Nurse indicated he has been tolerating TF with no residuals until this admit. He is NPO secondary to aspiration. TF at [place] is Jevty 1.5 at 75ml/hr [id number] (1pm-8am) to provide 2250kcal, 95gm protein and 1140ml free water add 150ml Q4H of flush for total fluid 2040ml/day once IV discontinued
--- NOTE | 2025-07-16 10:50 | HMH.PTEV ---
Physical Therapy Evaluation Rehab PT IP Evaluation Start: 07/15/25 15:04 Freq: ONCE Status: Active Protocol: Document 07/16/25 10:42 KARLA (Rec: 07/16/25 10:49 KARLA [id number]) Subjective/History History History Per H&P: Dean Fountain is a 60-year-old male with a medical history significant for suspected anoxic brain injury in 2019, functional paraplegic, chronic dysphagia with PEG tube dependence, former foreign body aspiration, cognitive impairment, chronic alcoholism presented from senior care with a few days of shortness of breath, accessory muscle use, fever, abdominal distention. On arrival, patient was hypoxic requiring 2 L. Unfortunately, patient is not able to participate in interview due to chronic cognitive impairment. History was obtained via chart review. Workup of these ED significant for WBC 12.5 MCV 103, compensated VBG, potassium 5.5, bicarb 40, lactic acid 3.7, ammonia 93, full respiratory panel normal. CTA chest suggestive of recurrent versus chronic right lower lobe infiltrate. CT abdomen/pelvis did not show acute findings. Patient was tachycardic with leukocytosis and sepsis criteria for suspected aspiration pneumonia failure requiring 2 L. Given these findings, ED provider discussed case with me and I decided to admit patient for further evaluation and management. Subjective Subjective Pt reports: He can't walk but she can. He uses a lift to get out of bed because he can't stand Pt appears to be a camila lift transfer at baseline. Pt lives at a senior care. [facility] How much help from another person do you currently need... Turning from your Total back to your side while in a flat bed without using bedrails? Moving from lying on Total back to sitting on the side of a flat bed without using bedrails? Moving to and from a Total bed to a chair ( including a wheelchair)? Standing up from a Total chair using your arms? (e.g., wheelchair, bedside chair) Walking in hospital Total room? Climbing 3-5 steps Total with a railing? Mobility Score 6 Mobility Level [facility] Mobility 2 Bed activities/dependent transfer Mobility Calculator Rehab PT IP Eval Objective Appearance Patient Behavior Appropriate,Confused Difficulty following moderate instructions Speech Pattern Mumbled Ambulation Patient Able to No Ambulate Balance Ability to Arise Unable Transfers Bed Transfer Ability Maximum x 2 (75% assist) Rehab PT IP prob,goals,plan Problems Date of Evaluation: 07/16/25 Rehab Potential Rehab Potential Innapropriate for Skilled Therapy Discharge Plan PT Discharge Plan Pt appears to be at his baseline with functional mobility and is not appropriate for skilled acute level PT at this time. Eval Complexity Eval Charge Codes 71468 - Moderate Complexity PHYSICIAN CERTIFICATION: I certify the specified therapy services for Dean Fountain are required, authorized, and reviewed every 30 days.
[2025-07-16] MEDS: SODIUM CHLORIDE 3% 15ML NEB 3 ML IH (11:12)
[2025-07-16] MEDS: IPRATROPIUM/ALBUTEROL 3 ML NEB IH ×2 (11:12→18:41)
[2025-07-16] MEDS: PIPERACILLIN/TAZO 4.5 GM in 0.9 % SODIUM CHLORIDE 100 ML IV ×2 (12:12→17:21)
[2025-07-16] MEDS: QUETIAPINE 100MG TABLET 50 MG FEED TUBE ×2 (13:11→21:57)
[2025-07-16] MEDS: ARTIFICIAL TEARS SOLN 15ML BOTTLE OP ×3 (13:11→21:57)
--- NOTE | 2025-07-16 13:20 | PC.NURSE ---
Jevity 1.5 started at 75ml / hr. 150 NS flush every 4 hours.
--- NOTE | 2025-07-16 14:45 | P.PN_ITS ---
Subjective *Date: 07/16/25 *Time: 14:45 Interval history: Stable on 2 L oxygen. Afebrile overnight. White count normal today. Will advance tube feeds. Appears comfortable on morning rounds Medical Exam Vital signs and Labs for Last 24 Hours: Vital Signs Temp Pulse Pulse Resp BP Pulse Ox O2 Del Method 07/16/25 14:02 Nasal Cannula 07/16/25 12:05 Nasal Cannula 07/16/25 12:00 98.4 F 90 17 138/69 95 Nasal Cannula 07/16/25 11:13 80 18 07/16/25 11:13 79 07/16/25 11:13 80 07/16/25 10:02 Nasal Cannula 07/16/25 08:21 Nasal Cannula 07/16/25 08:00 Nasal Cannula 07/16/25 08:00 97.6 F 97 H 19 117/73 93 L Nasal Cannula 07/16/25 06:40 Nasal Cannula 07/16/25 04:41 Nasal Cannula 07/16/25 04:00 98.7 F 61 16 132/62 93 L Room Air 07/16/25 03:00 Nasal Cannula 07/16/25 01:00 Nasal Cannula 07/16/25 00:00 97.5 F L 62 16 135/62 92 L Nasal Cannula 07/15/25 23:00 Nasal Cannula 07/15/25 21:00 Nasal Cannula 07/15/25 20:00 Nasal Cannula 07/15/25 20:00 99.1 F 109 H 18 121/69 91 L 07/15/25 18:47 Nasal Cannula 07/15/25 17:03 Nasal Cannula 07/15/25 15:45 98.7 F 119 H 13 119/64 95 Nasal Cannula O2 Flow Rate 07/16/25 14:02 2 07/16/25 12:05 2 07/16/25 12:00 2 07/16/25 11:13 07/16/25 11:13 07/16/25 11:13 07/16/25 10:02 2 07/16/25 08:21 2 07/16/25 08:00 2 07/16/25 08:00 2 07/16/25 06:40 2 07/16/25 04:41 2 07/16/25 04:00 07/16/25 03:00 2 07/16/25 01:00 2 07/16/25 00:00 2 07/15/25 23:00 2 07/15/25 21:00 2 07/15/25 20:00 2 07/15/25 20:00 07/15/25 18:47 2 07/15/25 17:03 2 07/15/25 15:45 2 Intake and Output 07/15/25 07/16/25 07/16/25 23:59 07:59 15:59 Intake Total 300 / 1303.75 1003.75 / 1303.75 Output Total 0 / 0 1100 / 1100 0 / 1100 Balance 0 / 850 -800 / 203.75 1003.75 / 203.75 Intake: Intake, Total IV Amount 300 / 1303.75 1003.75 / 1303.75 Lactated Ringers 1000ML 1,000 903.75 / 903.75 ml @ 75 mls/hr IV .[id number] [facility] Rx#:[id number] Piperacillin/Tazo 4.5 gm In 0.9 100 / 100 % Sodium Chloride 100 ml @ 100 mls/hr IV Q6H [facility] Rx#:[id number] Pipercillin/Tazo 3.375 gm In 0. 50 / 50 9 % Sodium Chloride 50 ml @ 100 mls/hr IV Q8H [facility] Rx#:[id number] Vancomycin/Water For Inj (Peg) 250 / 250 1.25 gm In 250 ml @ 125 mls/hr IV ONCE ONE Rx#:[id number] Output: Output, Urine Amount 0 / 0 1100 / 1100 0 / 1100 Other: Number of Voids 0 Number of Unmeasured Voids 1 Number of Bowel Movements 1 1 Weight 75.07 kg 75.07 kg Patient Weight 07/16/25 23:59 Weight 75.07 kg Laboratory Results - last 24 hr 07/15/25 11:20: HCV Ab TANESHA w/Rflx PCR Qn Negative, HIV Ag/Ab Combo Qual Negative 07/15/25 14:10: Chlamy pneumoniae PCR Not detected, Adenovirus (PCR) Not detected, B. pertussis DNA (PCR) Not detected, Coronavirus OC43 (PCR) Not detected, Coronavirus HKU1 (PCR) Not detected, Coronavirus 229E (PCR) Not detected, SARS-CoV-2 (PCR) Not detected, Coronavirus NL63 (PCR) Not detected, Human Metapneumovir PCR Not detected, Influenza A (H1) PCR Not detected, Influ A (H1N1/09) PCR Not detected, Influenza A (H3) PCR Not detected, Influenza Type A (PCR) Not detected, Influenza Type B (PCR) Not detected, M. pneumoniae (PCR) Not detected, Parainfluenza 1 (PCR) Not detected, Parainfluenza 2 (PCR) Not detected, Parainfluenza 3 (PCR) Not detected, Parainfluenza 4 (PCR) Not detected, RSV (PCR) Not detected, Entero/Rhino (PCR) Not detected 07/15/25 15:17: Lactate 3.7 H, Troponin I < 0.01, C-Reactive Protein 6.3 H, Procalcitonin 0.068 07/15/25 19:52: Lactate 0.9, Troponin I < 0.01 07/15/25 20:00: Urine Color Yellow, Urine Appearance Clear, Urine pH 8.0, Ur Specific [place] 1.010, Urine Protein Negative, Urine Glucose (UA) Negative, Urine Ketones Negative, Urine Blood Trace-i, Urine Nitrate Negative, Urine Bilirubin Negative, Urine Urobilinogen 0.2, Ur Leukocyte Esterase Negative, Urine RBC 3-5, Urine WBC Occasional, Urine Bacteria Trace 07/16/25 05:37: WBC 9.7, RBC 4.61, Hgb 15.3 D, Hct 47.7, MCV 103.5 H, MCH 32.8 H, MCHC 31.7 L, RDW 13.7, Plt Count 301, MPV 11.5 H, Neut % (Auto) 63.3, Lymph % (Auto) 21.4, [place] % (Auto) 13.6 H, Eos % (Auto) 0.9, Baso % (Auto) 0.6, Neut # (Auto) 6.1, Lymph # (Auto) 2.1, [place] # (Auto) 1.3 H, Eos # (Auto) 0.1, Baso # (Auto) 0.1, Sodium 140, Potassium 3.9 D, Chloride 100, Carbon Dioxide 36 H, Anion Gap 7.9, BUN 17, Creatinine 0.70, Estimated Creat Clear 82, Estimated GFR 115, Est GFR ( Amer) 139, Glucose 104 H D, Calcium 8.8, Total Bilirubin 0.7, AST 49, ALT 15 D, Alkaline Phosphatase 110, C-Reactive Protein 8.8 H D, Total Protein 7.2, Albumin 3.4 L D, Globulin 3.8 H, Albumin/Globulin Ratio 0.9 L I & O for Labs for Last 24 Hours: Intake & Output 07/13/25 07/14/25 07/15/25 07/16/25 23:59 23:59 23:59 23:59 Intake Total 850 / 850 1303.75 / 1303.75 Output Total 0 / 0 1100 / 1100 Balance 850 / 850 203.75 / 203.75 Weight 76.402 kg 75.07 kg Microbiology Reports for the Last 24 Hours: Microbiology 07/15/25 11:20 Blood Blood Culture - Preliminary NO GROWTH AFTER 24 HOURS 07/15/25 10:52 Blood Blood Culture - Preliminary NO GROWTH AFTER 24 HOURS Constitutional: Present no acute distress, thin and chronically ill appearing Head: Present atraumatic and normocephalic ENT: Present normal exam Respiratory: Present rhonchi, crackles and normal respiratory effort; Absent wheezes Cardiac: Present Reg Rate and Rhythm GI: Present soft and normal bowel sounds; Absent distention or tenderness Comments:: G-tube present Extremities: Present normal inspection and full ROM Comment:: thin Skin: Present intact; Absent erythema Comment:: Seborrheic dermatitis on face Neuro: Present alert; Absent moves all extremities Comment:: Chronic residual deficits Assessment and Plan *Assessment and plan (1) Sepsis: Status: Acute Category: Medical Code(s): A41.9 - Sepsis, unspecified organism (2) Pneumonia: Status: Acute Category: Medical Code(s): J18.9 - Pneumonia, unspecified organism (3) Wernicke-Korsakoff syndrome (alcoholic): Status: Chronic Category: Medical Code(s): F10.96 - Alcohol use, unspecified with alcohol-induced persisting amnestic disorder (4) Severe protein-calorie malnutrition: Status: Chronic Category: Medical Code(s): E43 - Unspecified severe protein-calorie malnutrition (5) Gastrojejunostomy tube status: Status: Chronic Category: Medical Code(s): Z93.4 - Other artificial openings of gastrointestinal tract status (6) Seizure disorder: Status: Chronic Category: Medical Code(s): G40.909 - Epilepsy, unspecified, not intractable, without status epilepticus (7) Encephalopathy chronic: Status: Chronic Category: Medical Code(s): G93.49 - Other encephalopathy (8) Flaccid paraplegia: Status: Acute Category: Medical Code(s): G82.20 - Paraplegia, unspecified Plan Dean Fountain is a 60-year-old male with a medical history significant for suspected anoxic brain injury in 2019, functional paraplegic, chronic dysphagia with PEG tube dependence, former foreign body aspiration, cognitive impairment, chronic alcoholism presented from skilled nursing with a few days of shortness of breath, accessory muscle use, fever, abdominal distention. On arrival, patient was hypoxic requiring 2 L. Unfortunately, patient is not able to participate in interview due to chronic cognitive impairment. History was obtained via chart review. Workup of these ED significant for WBC 12.5 MCV 103, compensated VBG, potassium 5.5, bicarb 40, lactic acid 3.7, ammonia 93, full respiratory panel normal. CTA chest suggestive of recurrent versus chronic right lower lobe infiltrate. CT abdomen/pelvis did not show acute findings. Patient was ta chycardic with leukocytosis and sepsis criteria for suspected aspiration pneumonia failure requiring 2 L. Given these findings, ED provider discussed case with me and I decided to admit patient for further evaluation and management. #Sepsis #aspiration pneumonia, ruled in #Chronic dysphagia with PEG tube dependence ? Per skilled nursing, patient has had shortness of breath, accessory muscle use, fevers at skilled nursing. CTA chest suggestive of recurrent versus chronic right lower lobe infiltrate. ? White count improved from 12.5-9.7. Hemoglobin 15.3. Stable on 2 L oxygen. Goal sats greater 90%. - Awaiting sputum and blood cultures. Continue Zosyn 3.375 g every 6 hours - History of anoxic brain injury in 2019, PEG tube dependence due to chronic dysphagia. Unfortunately puts him at high risk for aspiration. - Repeat CBC, CMP, magnesium ordered for the morning #Mood disorder: Continue valproic acid 500 mg twice, Seroquel for female grams 3 times daily, melatonin 3 mg nightly, alprazolam 0.25 mg nightly #BPH: Continue home doxazosin 1 mg daily #GERD: Continue home PPI. #Macrocytosis ? Follow-up morning B12, folate, #History of anoxic brain injury #Functional paraplegia #Debility #Cognitive impairment ? Continue supportive therapy. Complicates all aspects of his care Full code DVT prophylaxis:
[2025-07-16] MEDS: MELATONIN 5MG TABLET 2.5 MG PO (21:57)
[2025-07-16] MEDS: VALPROIC ACID 250 MG/5 ML SOL UDC 500 MG G-TUBE (21:58)
[2025-07-17] VITALS: BP 132/83; PULSE 105; RESP 17; TEMP 36.5; O2SAT 93
[2025-07-17] MEDS: PIPERACILLIN/TAZO 4.5 GM in 0.9 % SODIUM CHLORIDE 100 ML IV ×3 (00:42→12:30)
[2025-07-17 03:52] LABS: Vancomycin,Trough 11.3 ug/mL (5.0-10.0)
[2025-07-17 04:00] VITALS: BP 139/95; PULSE 101; RESP 16; TEMP 36.7; O2SAT 97; BMI 24.8
[2025-07-17] MEDS: PHA TO NURSING INSTRUCTION 1 EACH NOTAPPLIC (04:16)
[2025-07-17] MEDS: VANCOMYCIN/WATER FOR INJ (PEG) 1.25 GM/250 ML PIGGYBACK IV (04:23)
[2025-07-17 06:15] VITALS: PULSE 105; O2SAT 93
[2025-07-17] MEDS: IPRATROPIUM/ALBUTEROL 3 ML NEB IH ×2 (06:18→10:44)
[2025-07-17 06:26] LABS: Hematocrit 51.4 % (42.0-52.0); Hemoglobin 16.3 g/dL (14.1-18.0); Immature Granulocytes % 0.2 %; Mean Corpuscular HGB Conc 31.7 g/dL (31.8-35.4); Mean Corpuscular Hemoglobin 32.7 pg (27.0-31.2); Mean Corpuscular Volume 103.0 fl (80-94); Nucleated Red Blood Cells % 0 %; Platelet Count 313 K/mm3 (142-424); Red Blood Count 4.99 M/mm3 (4.60-6.20); Red Cell Distribution Width-SD 52.9 fL; White Blood Count 8.3 K/mm3 (4.8-10.8)
[2025-07-17 06:42] LABS: Alanine Aminotransferase 14 U/L (12-78); Albumin Level 4.0 g/dl (3.5-5.0); Albumin/Globulin Ratio 1.0 (1.1-1.8); Alkaline Phosphatase 99 U/L (38-126); Anion Gap 10.4 mEq/L (5-15); Aspartate Amino Transferase 42 U/L (17-59); Bilirubin,Total 0.4 mg/dl (0.2-1.3); Blood Urea Nitrogen 12 mg/dl (9-20); Calcium 9.3 mg/dl (8.4-10.2); Carbon Dioxide 35 mmol/L (22.0-30.0); Chloride 99 mmol/L (98-107); Creatinine Clearance Estimated 84 mL/min (50-200); Creatinine,Serum 0.60 mg/dl (0.66-1.25); Estimated Glomerular Filt Rate 137 ml/min (>60); GFR (African American) 166 ML/MIN (>60); Globulin 3.9 g/dL (1.3-3.2); Glucose 103 mg/dl (74-100); Potassium 3.4 mmoL/L (3.5-5.1); Sodium 141 mmol/L (136-145); Total Protein,Serum 7.9 g/dl (6.3-8.2)
[2025-07-17 08:00] VITALS: BP 119/71; PULSE 98; RESP 16; TEMP 36.8; O2SAT 91
--- NOTE | 2025-07-17 08:36 | EXP.PHA.CONS ---
Pharmacy Consult Date: 07/17/25 Time: 08:36 Referring provider: DR. CAMARILLO Reason for Consult:: VANCOMYCIN DOSING Allergies Allergy/AdvReac Type Severity Reaction Status Date / Time No Known Allergies Allergy Verified 05/28/24 10:34 Home Medications ?Medication ?Instructions ?Recorded ?Confirmed ?Type aspirin 81 mg chewable tablet 81 mg feeding tube DAILY 12/24/22 07/15/25 History folic acid 0.8 mg capsule 0.8 mg feeding tube DAILY 12/24/22 07/15/25 History metoclopramide HCl 5 mg tablet 5 mg feeding tube BID 12/24/22 07/15/25 History potassium chloride 20 mEq/15 mL 20 meq feeding tube BID 12/24/22 07/15/25 History oral liquid quetiapine 100 mg tablet 50 mg feeding tube TID 12/24/22 07/15/25 History thiamine HCl (vitamin B1) 100 mg 100 mg feeding tube DAILY 12/24/22 07/15/25 History tablet valproic acid (as sodium salt) 250 500 mg feeding tube BID 12/24/22 07/15/25 History mg/5 mL oral solution Lactobacillus acidophilus 1 1,000 mmu cells PO DAILY 12/25/22 07/15/25 History billion cell capsule melatonin 3 mg tablet 3 mg PO HS 12/25/22 07/15/25 History polyethylene glycol 3350 17 17 g PO DAILY 12/25/22 07/15/25 History gram/dose oral powder (Miralax) doxazosin 1 mg tablet 1 mg feeding tube DAILY 05/16/24 07/15/25 History alprazolam 0.25 mg tablet 0.25 mg feeding tube HS 07/15/25 07/15/25 History azithromycin 250 mg tablet 250 mg feeding tube DAILY 07/15/25 07/15/25 History cholecalciferol (vitamin D3) 50 100 mcg PO DAILY 07/15/25 07/15/25 History mcg (2,000 unit) tablet ipratropium 0.5 mg-albuterol 3 mg 3 ml inhalation TID 07/15/25 07/15/25 History (2.5 mg base)/3 mL nebulization soln menthol 0.44 %-zinc oxide 20.6 % 1 applic topical QODHS 07/15/25 07/15/25 History topical ointment (Calmoseptine) pantoprazole 40 mg granules 40 mg PO DAILY 07/15/25 07/15/25 History delayed-release for susp in packet propylene glycol 0.6 % eye drops 1 drp ophthalmic (eye) QID 07/15/25 07/15/25 History (Systane Balance) selenium sulfide 1 % shampoo 1 applic topical MOFR 07/15/25 07/15/25 History (S[place]un Blue) New Prescriptions to Start Prescriptions: Height: 1.75 m Weight: 76.204 kg Laboratory Results:: Laboratory Results - last 24 hr 07/17/25 03:13: Vancomycin Trough 11.3 H 07/17/25 05:31: WBC 8.3, RBC 4.99, Hgb 16.3, Hct 51.4, MCV 103.0 H, MCH 32.7 H, MCHC 31.7 L, RDW 13.8, Plt Count 313, MPV 11.2 H, Neut % (Auto) 59.3, Lymph % (Auto) 23.9, [place] % (Auto) 13.3 H, Eos % (Auto) 2.6, Baso % (Auto) 0.7, Neut # (Auto) 4.9, Lymph # (Auto) 2.0, [place] # (Auto) 1.1 H, Eos # (Auto) 0.2, Baso # (Auto) 0.1, Sodium 141, Potassium 3.4 L, Chloride 99, Carbon Dioxide 35 H, Anion Gap 10.4, BUN 12 D, Creatinine 0.60 L, Estimated Creat Clear 84, Estimated GFR 137, Est GFR ( Amer) 166, Glucose 103 H, Calcium 9.3, Total Bilirubin 0.4, AST 42, ALT 14, Alkaline Phosphatase 99, Total Protein 7.9, Albumin 4.0 D, Globulin 3.9 H, Albumin/Globulin Ratio 1.0 L Medical History: Medical History (Updated 07/15/25 @ 13:41 by AYLA Swanson) History of hemoptysis History of smoking 30 or more pack years Dislodged gastrostomy tube Cognitive impairment Flaccid paraplegia Dysphagia GERD (gastroesophageal reflux disease) COPD (chronic obstructive pulmonary disease) Hemoptysis Seizures Lung nodules Gastrostomy tube in place Assessment and Plan Assessment and plan all Dx Assessment and Plan for all problems:: BASED ON PATIENT FACTORS AND VANCOMYCIN TROUGH LEVEL OF 11.3, RECOMMEND CONTINUING CURRENT VANCOMYCIN DOSE AT 1,250MG EVERY 12 HOURS. PHARMACY WILL CONTINUE TO MONITOR AND WILL ADJUST DOSE APPROPRIATE. -JOB BUSTAMANTE, DAHIANAD
--- NOTE | 2025-07-17 09:04 | HMH.PHAAMS2 ---
- Antimicrobial Stewardship Review culture & sensitivity review Stewardship interventions: culture & sensitivity review, reviewed - no change
[2025-07-17] MEDS: QUETIAPINE 100MG TABLET 50 MG FEED TUBE ×2 (09:39→13:39)
[2025-07-17] MEDS: VALPROIC ACID 250 MG/5 ML SOL UDC 500 MG G-TUBE (09:39)
[2025-07-17] MEDS: FOLIC ACID 1MG TABLET 1 MG G-TUBE (09:40)
[2025-07-17] MEDS: PANTOPRAZOLE SODIUM 40 MG PO (09:40)
[2025-07-17] MEDS: THIAMINE 100MG TABLET 100 MG NG-TUBE (09:40)
[2025-07-17] MEDS: ARTIFICIAL TEARS SOLN 15ML BOTTLE OP ×2 (09:40→13:41)
[2025-07-17] MEDS: LACTOBACILLUS 1 GM FEED TUBE (09:41)
[2025-07-17] MEDS: ASPIRIN 81MG CHEWABLE TABLET 81 MG FEED TUBE (09:42)
[2025-07-17] MEDS: DOXAZOSIN MESYLATE 1 MG TABLET G-TUBE (09:42)
[2025-07-17 10:45] VITALS: PULSE 80; PULSE 82
--- NOTE | 2025-07-17 11:39 | EXP.DC.SUM ---
General Admission date:: 07/15/25 Discharge date: 07/17/25 HPI HPI HPI: Dean Fountain is a 60-year-old male with a medical history significant for suspected anoxic brain injury in 2019, functional paraplegic, chronic dysphagia with PEG tube dependence, former foreign body aspiration, cognitive impairment, chronic alcoholism presented from [facility] with a few days of shortness of breath, accessory muscle use, fever, abdominal distention. On arrival, patient was hypoxic requiring 2 L. Unfortunately, patient is not able to participate in interview due to chronic cognitive impairment. History was obtained via chart review. Workup of these ED significant for WBC 12.5 MCV 103, compensated VBG, potassium 5.5, bicarb 40, lactic acid 3.7, ammonia 93, full respiratory panel normal. CTA chest suggestive of recurrent versus chronic right lower lobe infiltrate. CT abdomen/pelvis did not show acute findings. Patient was tachycardic with leukocytosis and sepsis criteria for suspected aspiration pneumonia failure requiring 2 L. Given these findings, ED provider discussed case with me and I decided to admit patient for further evaluation and management. Hospital Course Hospital Course Hospital Course: Dean Fountain is a 60-year-old male with a medical history significant for suspected anoxic brain injury in 2019, functional paraplegic, chronic dysphagia with PEG tube dependence, former foreign body aspiration, cognitive impairment, chronic alcoholism presented from [facility] with a few days of shortness of breath, accessory muscle use, fever, abdominal distention. On arrival, patient was hypoxic requiring 2 L. Unfortunately, patient is not able to participate in interview due to chronic cognitive impairment. History was obtained via chart review. Workup of these ED significant for WBC 12.5 MCV 103, compensated VBG, potassium 5.5, bicarb 40, lactic acid 3.7, ammonia 93, full respiratory panel normal. CTA chest suggestive of recurrent versus chronic right lower lobe infiltrate. CT abdomen/pelvis did not show acute findings. Patient was tachycardic with leukocytosis and sepsis criteria for suspected aspiration pneumonia failure requiring 2 L. Given these findings, ED provider discussed case with me and I decided to admit patient for further evaluation and management. Showed response to antibiotics. Symptoms defervesced. Transition to oral Bactrim to complete therapy for aspiration pneumonia. Stable discharge back to nursing facility. Problems addressed as follows: #Sepsis #aspiration pneumonia, ruled in #Chronic dysphagia with PEG tube dependence ? Per [facility], patient has had shortness of breath, accessory muscle use, fevers at [facility]. CTA chest suggestive of recurrent versus chronic right lower lobe infiltrate. White count improved from 12.5-8.3 by day of discharge. Hemoglobin 16.3. Kidney function and electrolytes normal. Initially on Zosyn and vancomycin. Completed 2-1/2 days of Zosyn therapy for aspiration pneumonia. Will transition to Bactrim based on previous cultures. He has had numerous previous sputum cultures, Most recent from 05/16/2024. Previous cultures have grown E. coli, Morganella, Enterobacter cloacae, Providencia, Proteus. All pathogens sensitive to Bactrim. Will transition to oral Bactrim DS for aspiration pneumonia to complete total of 7-day course. - History of anoxic brain injury in 2019, PEG tube dependence due to chronic dysphagia. Unfortunately puts him at high risk for aspiration. #Mood disorder: Continue valproic acid 500 mg twice, Seroquel for female grams 3 times daily, melatonin 3 mg nightly, alprazolam 0.25 mg nightly #BPH: Continue home doxazosin 1 mg daily #GERD: Continue home PPI. #History of anoxic brain injury #Functional paraplegia #Debility #Cognitive impairment ? Continue supportive therapy. Complicates all aspects of his care Total time spent on discharge 32 minutes in counseling, documentation, chart review, and direct care with patient. Exam Data for Last 24 hours Vital signs and Labs for Last 24 Hours: Temp Pulse Resp BP Pulse Ox O2 Del Method O2 Flow Rate 98.2 F 82 16 119/71 91 L Nasal Cannula 2 07/17/25 08:00 07/17/25 10:45 07/17/25 08:00 07/17/25 08:00 07/17/25 08:00 07/17/25 08:00 07/17/25 06:21 FiO2 2 07/17/25 00:00 Laboratory Results - last 24 hr 07/17/25 03:13: Vancomycin Trough 11.3 H 07/17/25 05:31: WBC 8.3, RBC 4.99, Hgb 16.3, Hct 51.4, MCV 103.0 H, MCH 32.7 H, MCHC 31.7 L, RDW 13.8, Plt Count 313, MPV 11.2 H, Neut % (Auto) 59.3, Lymph % (Auto) 23.9, [place] % (Auto) 13.3 H, Eos % (Auto) 2.6, Baso % (Auto) 0.7, Neut # (Auto) 4.9, Lymph # (Auto) 2.0, [place] # (Auto) 1.1 H, Eos # (Auto) 0.2, Baso # (Auto) 0.1, Sodium 141, Potassium 3.4 L, Chloride 99, Carbon Dioxide 35 H, Anion Gap 10.4, BUN 12 D, Creatinine 0.60 L, Estimated Creat Clear 84, Estimated GFR 137, Est GFR ( Amer) 166, Glucose 103 H, Calcium 9.3, Total Bilirubin 0.4, AST 42, ALT 14, Alkaline Phosphatase 99, Total Protein 7.9, Albumin 4.0 D, Globulin 3.9 H, Albumin/Globulin Ratio 1.0 L I & O for Last 24 hours: Intake & Output 07/14/25 07/15/25 07/16/25 07/17/25 23:59 23:59 23:59 23:59 Intake Total 850 / 850 2653.75 / 2653.75 450 / 450 Output Total 0 / 0 1300 / 1300 600 / 600 Balance 850 / 850 1353.75 / 1353.75 -150 / -150 Weight 76.402 kg 75.07 kg 76.204 kg Microbiology Reports for the Last 24 Hours: Microbiology 07/15/25 11:20 Blood Blood Culture - Preliminary NO GROWTH AFTER 48 HOURS 07/15/25 10:52 Blood Blood Culture - Preliminary NO GROWTH AFTER 48 HOURS Constitutional Constitutional: no acute distress, thin, chronically ill appearing and cooperative *Routine HEENT Exam Head: Present normocephalic Eye: Present conjunctivae pink ENT: Present mucous membranes moist Comments: seborrheic dermatitis on face *Routine Neck Exam Neck: Absent JVD or lymphadenopathy *Routine Respiratory Exam Respiratory: Present rhonchi (clear with cough) and normal respiratory effort; Absent prolonged expiratory phase, respiratory distress, wheezes, crackles or diminished air movement *Routine Cardiovascular Exam Cardiovascular: Present RRR *Routine Abdominal Exam Abdominal: Present soft and normoactive bowel sounds Comments: G-tube in place *Routine Rectal Exam Patient deferred: visual exam *Routine Exam Patient deferred: penile exam *Routine Extremities Exam Extremities: Absent edema Comments: thin extremities *Routine Skin Exam Skin: Present intact; Absent rash Comments: Seborrheic dermatitis on face *Routine Neurological Exam Neurological: Present alert, altered mental status and moving all extremities; Absent oriented X3 Comments: baseline mentation Routine Psychiatric Exam Psychiatric: Present unable to assess Results Data Completed and Pending Labs on day of discharge: Labs from last 24 hours 07/17/25 07/17/25 05:31 03:13 WBC 8.3 RBC 4.99 Hgb 16.3 Hct 51.4 MCV 103.0 H MCH 32.7 H MCHC 31.7 L RDW 13.8 Plt Count 313 MPV 11.2 H Neut % (Auto) 59.3 Lymph % (Auto) 23.9 [place] % (Auto) 13.3 H Eos % (Auto) 2.6 Baso % (Auto) 0.7 Neut # (Auto) 4.9 Lymph # (Auto) 2.0 [place] # (Auto) 1.1 H Eos # (Auto) 0.2 Baso # (Auto) 0.1 Sodium 141 Potassium 3.4 L Chloride 99 Carbon Dioxide 35 H Anion Gap 10.4 BUN 12 D Creatinine 0.60 L Estimated Creat Clear 84 Estimated GFR 137 Est GFR ( Amer) 166 Glucose 103 H Calcium 9.3 Total Bilirubin 0.4 AST 42 ALT 14 Alkaline Phosphatase 99 Total Protein 7.9 Albumin 4.0 D Globulin 3.9 H Albumin/Globulin Ratio 1.0 L Vancomycin Trough 11.3 H Preliminary micro results at discharge 07/15/25 11:20 Blood Culture - Preliminary Blood NO GROWTH AFTER 48 HOURS 07/15/25 10:52 Blood Culture - Preliminary Blood NO GROWTH AFTER 48 HOURS DS: Diagnosis Discharge Diagnosis (1) Sepsis: Status: Acute Code(s): A41.9 - Sepsis, unspecified organism (2) Pneumonia: Status: Acute Code(s): J18.9 - Pneumonia, unspecified organism Qualifiers: Pneumonia type: aspiration pneumonia Aspiration pneumonia type: due to gastric secretions Laterality: right Lung location: lower lobe of lung Qualified Code(s): J69.0 - Pneumonitis due to inhalation of food and vomit (3) Wernicke-Korsakoff syndrome (alcoholic): Status: Chronic Code(s): F10.96 - Alcohol use, unspecified with alcohol-induced persisting amnestic disorder (4) Severe protein-calorie malnutrition: Status: Chronic Code(s): E43 - Unspecified severe protein-calorie malnutrition (5) Gastrojejunostomy tube status: Status: Chronic Code(s): Z93.4 - Other artificial openings of gastrointestinal tract status (6) Seizure disorder: Status: Chronic Code(s): G40.909 - Epilepsy, unspecified, not intractable, without status epilepticus (7) Encephalopathy chronic: Status: Chronic Code(s): G93.49 - Other encephalopathy (8) Flaccid paraplegia: Status: Acute Code(s): G82.20 - Paraplegia, unspecified Meds Home Medications and Allergies Home Medications ?Medication ?Instructions ?Recorded ?Confirmed ?Type aspirin 81 mg chewable tablet 81 mg feeding tube DAILY 12/24/22 07/15/25 History folic acid 0.8 mg capsule 0.8 mg feeding tube DAILY 12/24/22 07/15/25 History metoclopramide HCl 5 mg tablet 5 mg feeding tube BID 12/24/22 07/15/25 History potassium chloride 20 mEq/15 mL 20 meq feeding tube BID 12/24/22 07/15/25 History oral liquid quetiapine 100 mg tablet 50 mg feeding tube TID 12/24/22 07/15/25 History thiamine HCl (vitamin B1) 100 mg 100 mg feeding tube DAILY 12/24/22 07/15/25 History tablet valproic acid (as sodium salt) 250 500 mg feeding tube BID 12/24/22 07/15/25 History mg/5 mL oral solution Lactobacillus acidophilus 1 1,000 mmu cells PO DAILY 12/25/22 07/15/25 History billion cell capsule melatonin 3 mg tablet 3 mg PO HS 12/25/22 07/15/25 History polyethylene glycol 3350 17 17 g PO DAILY 12/25/22 07/15/25 History gram/dose oral powder (Miralax) doxazosin 1 mg tablet 1 mg feeding tube DAILY 05/16/24 07/15/25 History alprazolam 0.25 mg tablet 0.25 mg feeding tube HS 07/15/25 07/15/25 History cholecalciferol (vitamin D3) 50 100 mcg PO DAILY 07/15/25 07/15/25 History mcg (2,000 unit) tablet ipratropium 0.5 mg-albuterol 3 mg 3 ml inhalation TID 07/15/25 07/15/25 History (2.5 mg base)/3 mL nebulization soln menthol 0.44 %-zinc oxide 20.6 % 1 applic topical QODHS 07/15/25 07/15/25 History topical ointment (Calmoseptine) pantoprazole 40 mg granules 40 mg PO DAILY 07/15/25 07/15/25 History delayed-release for susp in packet propylene glycol 0.6 % eye drops 1 drp ophthalmic (eye) QID 07/15/25 07/15/25 History (Systane Balance) selenium sulfide 1 % shampoo 1 applic topical MOFR 07/15/25 07/15/25 History (Selsun Blue) sulfamethoxazole 800 1 tab PO BID 5 days #9 tabs 07/17/25 Rx mg-trimethoprim 160 mg tablet (Bactrim DS) New Prescriptions to Start Prescriptions: sulfamethoxazole-trimethoprim [Bactrim DS] Ravi Quintanilla Allergies Allergy/AdvReac Type Severity Reaction Status Date / Time No Known Allergies Allergy Verified 05/28/24 10:34 Discharge Plan Disposition Patient Disposition: [facility] Inter[facility] Care Fac Condition: Fair Discharge Order Discharge Orders: Discharge Order (Routine); Ordered 07/17/25 Ordered By: Ravi Quintanilla Follow up Plan Prescriptions/Medication Reconciliation: New sulfamethoxazole-trimethoprim [Bactrim DS] 800-160 mg tablet 1 tab PO BID 5 Days Qty: 9 0RF Rx Instructions: First dose due evening of 07/17/2025 Continued doxazosin 1 mg tablet 1 mg feeding tube DAILY thiamine HCl (vitamin B1) 100 mg Tablet 100 mg feeding tube DAILY quetiapine 100 mg tablet 50 mg feeding tube TID potassium chloride 20 mEq/15 mL liquid 20 meq feeding tube BID metoclopramide HCl 5 mg tablet 5 mg feeding tube BID valproic acid (as sodium salt) 250 mg/5 mL solution 500 mg feeding tube BID aspirin 81 mg Tablet,Chewable 81 mg feeding tube DAILY folic acid 0.8 mg Capsule 0.8 mg feeding tube DAILY melatonin 3 mg Tablet 3 mg PO HS Lactobacillus acidophilus 1 billion cell Capsule 1,000 mmu cells PO DAILY polyethylene glycol 3350 [Miralax] 17 gram/dose Powder 17 g PO DAILY cholecalciferol (vitamin D3) 50 mcg (2,000 unit) Tablet 100 mcg PO DAILY pantoprazole [address] For Susp In Packet 40 mg PO DAILY ipratropium-albuterol 0.5 mg-3 mg(2.5 mg base)/3 mL solution for nebulization 3 ml INHALATION TID alprazolam 0.25 mg tablet 0.25 mg feeding tube HS menthol-zinc oxide [Calmoseptine] 0.44-20.6 % Ointment 1 applic TOPICAL QODHS Systane Balance 0.6 % Drops 1 drp OPHTHALMIC (EYE) QID Selsun Blue 1 % Shampoo 1 applic TOPICAL MOFR Rx Instructions: massage into affected area; leave on for 10 mins ; rinse off thoroughly Discontinued azithromycin 250 mg tablet 250 mg feeding tube DAILY Problem Reconciliation Problems Reviewed?: Yes Patient Discharge Instructions ACTIVITY: Continue current activity DIET: continue same diet Patient Instructions: Pneumonia in Adults, Sepsis, Stop Light Pneumonia Print Language: Polish Providers Primary Care Provider: Provider,Referral Admit Provider: Marvin Anna Attending Provider: Marvin Anna
[2025-07-17 11:58] VITALS: BP 110/64; PULSE 94; RESP 17; TEMP 37; O2SAT 96
--- NOTE | 2025-07-17 14:27 | PC.NURSE ---
report called to [facility], EMS called for transport.
== END 2025-07-17 15:44 ==
LOC: ER 13:41 → 2ND 14:38
PROVIDERS: Nurse Practitioner Acute Care; Physician Assistant; Admitting Provider Student in an Organized Health Care Education/Training Program; Emergency Provider Emergency Medicine; Visit Provider Student in an Organized Health Care Education/Training Program
DX: A41.9 Sepsis, unspecified organism (principal); J18.9 Pneumonia, unspecified organism; F10.96 Alcohol use, unspecified with alcohol-induced persisting amnestic disorder; E43 Unspecified severe protein-calorie malnutrition; Z93.4 Other artificial openings of gastrointestinal tract status; G40.909 Epilepsy, unspecified, not intractable, without status epilepticus; G93.49 Other encephalopathy; G82.20 Paraplegia, unspecified; J69.0 Pneumonitis due to inhalation of food and vomit; J44.9 Chronic obstructive pulmonary disease, unspecified; K21.9 Gastro-esophageal reflux disease without esophagitis; Z87.891 Personal history of nicotine dependence; Z79.82 Long term (current) use of aspirin; Z79.899 Other long term (current) drug therapy; R41.82 Altered mental status, unspecified; R00.0 Tachycardia, unspecified; Z68.24 Body mass index [BMI] 24.0-24.9, adult
CPT/HCPCS: 0223U; 36415; 70450; 71045; 71275; 74177; 80053; 80202; 81001; 82140; 82803; 83605; 83735; 83880; 84145; 84484; 85025; 85610; 85730; 86140; 86803; 87040; 87389; 89220; 93005; 94640; 94761; 97162; 99285; G0378; J1650; J2543; J3375; J7030; J7120; Q9967

== ENCOUNTER 2025-08-14 11:23 | Observation (INO) | payer MEDICARE, MEDICAID, SELFPAY ==
[2025-08-14] VITALS (12 sets, daily range): BP systolic 101–153; BP diastolic 64–96; PULSE 78–128; RESP 16–29; TEMP 36.6–37.1; O2SAT 91–98; BMI 22.9; BMI 23.3
--- NOTE | 2025-08-14 | ECG_ITS ---
APPROVED REPORT Exam: Resting ECG HR:115 bpm ECG Measurements Heart Rate 115 AXES IA 174 P 69 QRSd 77 QRS 107 QT 337 T 66 QTc 405 Conclusion SINUS TACHYCARDIA RIGHT AXIS DEVIATION [QRS AXIS > 100] No STEMI Electronically signed by : VIKTORIA GIBSON, 08/16/2025 06:55:20
--- NOTE | 2025-08-14 11:59 | PC.NURSE ---
pt watching tv with lights out; call cha within reach
--- NOTE | 2025-08-14 12:11 | ED_ITS ---
Discharge Plan Disposition Patient Disposition: Admitted Prescriptions Prescriptions: No Action doxazosin 1 mg tablet 1 mg feeding tube DAILY thiamine HCl (vitamin B1) 100 mg Tablet 100 mg feeding tube DAILY quetiapine 100 mg tablet 50 mg feeding tube TID potassium chloride 20 mEq/15 mL liquid 20 meq feeding tube BID metoclopramide HCl 5 mg tablet 5 mg feeding tube BID valproic acid (as sodium salt) 250 mg/5 mL solution 500 mg feeding tube BID aspirin 81 mg Tablet,Chewable 81 mg feeding tube DAILY folic acid 0.8 mg Capsule 0.8 mg feeding tube DAILY melatonin 3 mg Tablet 3 mg PO HS Lactobacillus acidophilus 1 billion cell Capsule 1,000 mmu cells PO DAILY polyethylene glycol 3350 [Miralax] 17 gram/dose Powder 17 g PO DAILY cholecalciferol (vitamin D3) 50 mcg (2,000 unit) Tablet 100 mcg PO DAILY pantoprazole [address] For Susp In Packet 40 mg PO DAILY ipratropium-albuterol 0.5 mg-3 mg(2.5 mg base)/3 mL solution for nebulization 3 ml INHALATION TID alprazolam 0.25 mg tablet 0.25 mg feeding tube HS menthol-zinc oxide [Calmoseptine] 0.44-20.6 % Ointment 1 applic TOPICAL QODHS Systane Balance 0.6 % Drops 1 drp OPHTHALMIC (EYE) QID Selsun Blue 1 % Shampoo 1 applic TOPICAL MOFR Rx Instructions: massage into affected area; leave on for 10 mins ; rinse off thoroughly sulfamethoxazole-trimethoprim [Bactrim DS] 800-160 mg tablet 1 tab PO BID 5 Days Qty: 9 0RF Rx Instructions: First dose due evening of 07/17/2025 Referrals Follow up/Referrals: Provider,Referral, [Primary Care Provider, Medical] - See instructions Clinical Impressions Clinical Impression: Pneumonia, Hypoxic respiratory failure Print Language Print Language: Tamazight Discharge ED Provider: Silas Conrad General Adult HPI <Olimpia Trejo (ED), DIRECTOR OF QUALITY CONTROL - Last Filed: 08/14/25 15:22> General Chief complaint: Weakness Stated complaint: Low O2 Time Seen by Provider: 08/14/25 12:11 History of Present Illness HPI narrative: 60-year-old male presents to the ED today for complaint of low O2. He is from [facility]. When I went into the room to assess patient his O2 was 86 on 3 L. Nursing is calling the correction right now to determine if he is already on oxygen. Patient can answer ANO questions. Patient has history of paraplegia cognitive impairment, seizures, dysphagia, feeding problems, Warnicke Korsakoff syndrome. Related Data Home Medications ?Medication ?Instructions ?Recorded ?Confirmed aspirin 81 mg chewable tablet 81 mg feeding tube DAILY 12/24/22 07/15/25 folic acid 0.8 mg capsule 0.8 mg feeding tube DAILY 07/15/25 metoclopramide HCl 5 mg tablet 5 mg feeding tube BID 0 12/24/22 07/15/25 potassium chloride 20 mEq/15 mL 20 meq feeding tube BI D 12/24/22 07/15/25 oral liquid quetiapine 100 mg tablet 50 mg feeding tube TID 12/2407/15/25 thiamine HCl (vitamin B1) 100 mg 100 mg feeding tube D AILY 12/24/22 07/15/25 tablet valproic acid (as sodium salt) 250 500 mg feeding tube BID 12/24/22 07/15/25 mg/5 mL oral solution Lactobacillus acidophilus 1 1,000 mmu cells PO DAILY 0 12/25/22 07/15/25 billion cell capsule melatonin 3 mg tablet 3 mg PO HS 12/25/22 07/15/25 polyethylene glycol 3350 17 17 g PO DAILY 12/25/2206/29 gram/dose oral powder (Miralax) doxazosin 1 mg tablet 1 mg feeding tube DAILY 05/0607/15/25 alprazolam 0.25 mg tablet 0.25 mg feeding tube HS 07/0607/15/25 cholecalciferol (vitamin D3) 50 100 mcg PO DAILY 07/1507/15/25 mcg (2,000 unit) tablet ipratropium 0.5 mg-albuterol 3 mg 3 ml inhalation TID 07/15/25 07/15/25 (2.5 mg base)/3 mL nebulization soln menthol 0.44 %-zinc oxide 20.6 % 1 applic topical QODH S 07/15/25 07/15/25 topical ointment (Calmoseptine) pantoprazole 40 mg granules 40 mg PO DAILY 07/15/25 delayed-release for susp in packet propylene glycol 0.6 % eye drops 1 drp ophthalmic (eye ) QID 07/15/25 07/15/25 (Systane Balance) selenium sulfide 1 % shampoo 1 applic topical MOFR 06/2907/15/25 (Selsun Blue) Previous Rx's ?Medication ?Instructions ?Recorded sulfamethoxazole 800 1 tab PO BID 5 days #9 tabs 07/17/25 mg-trimethoprim 160 mg tablet (Bactrim DS) Allergies Allergy/AdvReac Type Severity Reaction Status Date / Time No Known Allergies Allergy Verified 05/28/24 10:34 PFS <Olimpia Trejo (ED), DIRECTOR OF QUALITY CONTROL - Last Filed: 08/14/25 15:22> PFS Disclaimer: The information contained in this section may have been updated after the patient was seen, as this information can be updated by other users. Medical History (Updated 08/14/25 @ 15:54 by Silas Conrad MD) History of hemoptysis History of smoking 30 or more pack years Dislodged gastrostomy tube Cognitive impairment Flaccid paraplegia Dysphagia GERD (gastroesophageal reflux disease) COPD (chronic obstructive pulmonary disease) Hemoptysis Seizures Lung nodules Gastrostomy tube in place Surgical History S/P percutaneous endoscopic gastrostomy (PEG) tube placement Hx of esophagogastroduodenoscopy Family History Mother Non Hodgkin's lymphoma Father Lung cancer Social History Smoking Status: Never smoker years smoked: 30 smoking status stop date: 2018 second hand exposure: No alcohol intake: former substance use type: denies use current occupational status: disabled Travel in the last 8 weeks?: None household members: other housing: correction caffeine: No Have you lived/traveled outside [place] in past 30 days?: No Contact w/someone who lives/traveled outside US past 30 days?: No Exposure to someone with infectious disease in past 14 days?: No Do you have a fever (greater than 100.4 F or 38 C)?: No Have you tested positive for COVID-19?: No Exposed to someone with COVID-19 in past 14 days?: No Do you have a sore throat?: No Do you have a cough?: No Do you have any weakness?: No Do you have any diarrhea?: No Are you experiencing any unusual bleeding?: No Do you have any muscle aches/pain?: No Do you have any abdominal pain?: No Are you experiencing loss of taste or smell?: No Other Medical History Have you received the Flu Vaccine for this season: No Have you received the Pneumonia Vaccine: No <Olimpia Trejo (ED), DIRECTOR OF QUALITY CONTROL - Last Filed: 08/14/25 15:22> ROS Obtained: Yes Systems reviewed as appropriate & no additional complaints except as documented Constitutional Constitutional: Reports as per HPI Physical Exam <Olimpiaantony Trejo (ED), DIRECTOR OF QUALITY CONTROL - Last Filed: 08/14/25 15:22> General General appearance: alert Head Head exam: normocephalic Eye Eye exam: Present PERRL and EOMI ENT ENT exam: Present normal oropharynx and mucous membranes moist Neck Neck exam: Present full ROM and trachea midline Respiratory Respiratory exam: Present normal lung sounds bilaterally Cardiovascular Cardiovascular exam: Present regular rate, normal rhythm, normal heart sounds, +S1 and +S2 Abdominal Exam Abdominal exam: Present soft, normal bowel sounds and other (G-tube) Extremities Exam Extremities exam: Present normal inspection and normal capillary refill Neurological Exam Neurological exam: Present alert and oriented X3 Skin Skin exam: Present warm and dry Medical Decision Making <Olimpiaantony Trejo (ED), DIRECTOR OF QUALITY CONTROL - Last Filed: 08/14/25 15:22> Medical Records Screening: Per USPSTF and CDC recommendations, given the prevalence of disease in our region, it is our hospital?s policy to screen for HIV and viral Hepatitis for all patients aged 18 and over and those with ongoing risk factors. Gene Inquiry Pt receiving controlled substance: No Gene was queried for this patient: No Vital Signs: 08/14/25 11:22 08/14/25 11:22 08/14/25 12:30 Temperature 98.1 F 98.1 F Temperature Source Rectal Oral Pulse Rate 125 H 108 H Pulse Rate [Right] 125 H Respiratory Rate 20 20 24 Blood Pressure 139/96 H 153/87 H Blood Pressure [Right Arm] 139/96 H Blood Pressure Mean [Right Arm] 110 Blood Pressure Source Automatic Cuff Blood Pressure Source [Right Arm] Automatic Cuff Blood Pressure Position Supine Blood Pressure Position [Right Arm] Supine 02 Sat by Pulse Oximetry 93 L 93 L 91 L Oxygen Delivery Method Nasal Cannula Nasal Cannula Nasal Cannula Oxygen Flow Rate (LPM) 3 3 3 08/14/25 12:47 08/14/25 13:00 08/14/25 13:30 Temperature Temperature Source Pulse Rate Pulse Rate [Right] Respiratory Rate 25 H 29 H Blood Pressure 116/78 129/79 Blood Pressure [Right Arm] Blood Pressure Mean [Right Arm] Blood Pressure Source Blood Pressure Source [Right Arm] Blood Pressure Position Blood Pressure Position [Right Arm] 02 Sat by Pulse Oximetry 93 L 91 L Oxygen Delivery Method Nasal Cannula Nasal Cannula Oxygen Flow Rate (LPM) 3 3 08/14/25 14:00 08/14/25 15:17 08/14/25 15:17 Temperature Temperature Source Pulse Rate 78 80 Pulse Rate [Right] Respiratory Rate 16 Blood Pressure 151/89 H Blood Pressure [Right Arm] Blood Pressure Mean [Right Arm] Blood Pressure Source Blood Pressure Source [Right Arm] Blood Pressure Position Blood Pressure Position [Right Arm] 02 Sat by Pulse Oximetry Oxygen Delivery Method Oxygen Flow Rate (LPM) Lab Data Lab Results 08/14/25 12:53: VBG pH 7.31, VBG pCO2 76.2 H, VBG pO2 93.1 H, VBG HCO3 37.1 H, V BG Total CO2 39.4 H, VBG O2 Saturation 96.2 H, VBG Base Excess 10.7 H, VBG Lactic Acid 1.4, SARS-CoV-2 (PCR) Not detected, Influenza A Untype (PCR) Not detected, Influenza Type B (PCR) Not detected 08/14/25 14:18: PT 11.4, INR 1.03, APTT 25.1, Sodium 145, Potassium 5.9 H, Chloride 99, Carbon Dioxide 39 H, Anion Gap 12.9, BUN 15, Creatinine 0.70, Estimated Creat Clear 84, Estimated GFR 115, Est GFR ( Amer) 139, Glucose 117 H, Calcium 9.5, Magnesium 2.1, Total Bilirubin 0.8, AST 67 H, ALT 24, Alkaline Phosphatase 87, Total Creatine Kinase 68, Troponin I 0.02, C-Reactive Protein 3.7, Total Protein 8.4 H, Albumin 4.1, Globulin 4.3 H, Albumin/Globulin Ratio 1.0 L, Lipase 72 08/14/25 14:41: Urine Color Yellow, Urine Appearance Clear, Urine pH 7.5, Ur Specific Kimberly 1.010, Urine Protein Negative, Urine Glucose (UA) Negative, Urine Ketones Negative, Urine Blood Negative, Urine Nitrate Negative, Urine Bilirubin Negative, Urine Urobilinogen 0.2, Ur Leukocyte Esterase Negative, Urine RBC None, Urine WBC Occasional, Ur Squamous Epith Cells Occasional, Urine Bacteria None 08/14/25 14:18 Orders (Tests/Meds): ED MEDICATIONS Generic Name Dose Route Start Last Admin Trade Name Freq PRN Reason Stop Dose Admin Sodium Chloride 3 ml 08/14/25 14:22 Sodium Chloride 3% 15ml [facility] 09/13/25 14:21 ONCE PRN INDUCE SPUTUM COLLECTION Discontinued Medications Generic Name Dose Route Start Last Admin Trade Name Freq PRN Reason Stop Dose Admin Albuterol Sulfate 20 mg 08/14/25 15:04 08/14/25 15:11 Albuterol 0.083% 2.5 Mg/3 Ml [facility] 08/14/25 15:05 20 mg ONCE ONE Administration Albuterol/Ipratropium 9 ml 08/14/25 12:20 08/14/25 13:53 Ipratropium/Albuterol 3 Ml [facility] 08/14/25 12:21 9 ml ONCE ONE Administration Ampicillin Sodium/Sulbactam 100 mls @ 200 mls/hr 08/14/25 12:20 08/14/25 15:46 Sodium 3 gm/ Sodium Chloride IV 08/14/25 12:21 200 mls/hr ONCE ONE Administration Azithromycin 500 mg/ Sodium 250 mls @ 250 mls/hr 08/14/25 12:20 08/14/25 13:53 Chloride IV 08/14/25 12:21 250 mls/hr ONCE ONE Administration Iopamidol 70 ml 08/14/25 14:30 08/14/25 14:31 Iopamidol-370 (76%);100ml Bottle IV 08/14/25 14:31 70 ml ONCE ONE Administration Methylprednisolone Sodium Succinate 125 mg 08/14/25 12:20 08/14/25 14:01 Methylprednisolone Sod Succ 125mg Vial IV 08/14/25 12:21 125 mg ONCE ONE Administration Sodium Chloride 50 ml 08/14/25 14:30 08/14/25 14:31 0.9 % Sodium Chloride 50 Ml Vial IV 08/14/25 14:31 50 ml ONCE ONE Administration Sodium Chloride 10 ml 08/14/25 14:30 08/14/25 14:31 Sodium Chloride 0.9% 10ml Syr (Rad Only) IV 08/14/25 14:31 10 ml ONCE ONE Administration ORDERS Category Date Time Status CTA Chest [CT angio chest PE protocol] Stat Cat Scan 08/14/25 12:21 Taken Activated Partial Thrombo Time Stat Lab 08/14/25 14:18 Completed C-Reactive Protein Stat Lab 08/14/25 14:18 Completed Comprehensive Metabolic Panel Stat Lab 08/14/25 14:18 Completed Creatine Kinase Stat Lab 08/14/25 14:18 Completed Erythrocyte Sedimentation Rate Stat Lab 08/14/25 14:18 Received Lactate Venous Stat Lab 08/14/25 12:20 Ordered Lipase Stat Lab 08/14/25 14:18 Completed Magnesium Stat Lab 08/14/25 14:18 Completed Prothrombin Time INR Stat Lab 08/14/25 14:18 Completed Rapid PCR Covid and Flu A/B Stat Lab 08/14/25 12:53 Completed Trop I [Troponin I] Stat Lab 08/14/25 14:18 Completed Troponin I Q3H Lab 08/14/25 15:30 Ordered Troponin I Q3H Lab 08/14/25 18:30 Ordered Urinalysis and Microscopic Stat Lab 08/14/25 14:41 Completed Blood Culture Stat Micro 08/14/25 12:53 Received Sputum Culture & Gram Stain Stat Micro 08/14/25 14:20 Received Urine Culture Stat Micro 08/14/25 14:41 Received Venous Blood Gas Stat RT 08/14/25 12:53 Completed Medical Decision Narrative: patient is a 60-year-old male presenting to the emergency department for evaluation of low O2 at the correction of 86%. Patient is hemodynamically stable and nontoxic-appearing upon arrival, afebrile. Differential diagnosis includes flu, COVID, viral illness, pneumonia, COPD, among others. Workup will be conducted with hematologic labs, specific imaging. Initial inventions include crystalloid bolus, analgesics. Initial workup reviewed by me [hematologic labs are remarkable for:]. [Imaging informally interpreted by me and remarkable for:] [Formal imaging read remarkable for:] Upon repeat evaluation [patient's pain is improved, appears better perfused, appears the same, appears worse, etc.]. Due to this [additional interventions, patient is appropriate for discharge, patient requires admission, etc.]. <Silas Conrad MD - Last Filed: 08/14/25 15:54> Vital Signs: 08/14/25 11:22 08/14/25 11:22 08/14/25 12:30 Temperature 98.1 F 98.1 F Temperature Source Rectal Oral Pulse Rate 125 H 108 H Pulse Rate [Right] 125 H Respiratory Rate 20 20 24 Blood Pressure 139/96 H 153/87 H Blood Pressure [Right Arm] 139/96 H Blood Pressure Mean [Right Arm] 110 Blood Pressure Source Automatic Cuff Blood Pressure Source [Right Arm] Automatic Cuff Blood Pressure Position Supine Blood Pressure Position [Right Arm] Supine 02 Sat by Pulse Oximetry 93 L 93 L 91 L Oxygen Delivery Method Nasal Cannula Nasal Cannula Nasal Cannula Oxygen Flow Rate (LPM) 3 3 3 08/14/25 12:47 08/14/25 13:00 08/14/25 13:30 Temperature Temperature Source Pulse Rate Pulse Rate [Right] Respiratory Rate 25 H 29 H Blood Pressure 116/78 129/79 Blood Pressure [Right Arm] Blood Pressure Mean [Right Arm] Blood Pressure Source Blood Pressure Source [Right Arm] Blood Pressure Position Blood Pressure Position [Right Arm] 02 Sat by Pulse Oximetry 93 L 91 L Oxygen Delivery Method Nasal Cannula Nasal Cannula Oxygen Flow Rate (LPM) 3 3 08/14/25 14:00 08/14/25 15:17 08/14/25 15:17 Temperature Temperature Source Pulse Rate 78 80 Pulse Rate [Right] Respiratory Rate 16 Blood Pressure 151/89 H Blood Pressure [Right Arm] Blood Pressure Mean [Right Arm] Blood Pressure Source Blood Pressure Source [Right Arm] Blood Pressure Position Blood Pressure Position [Right Arm] 02 Sat by Pulse Oximetry Oxygen Delivery Method Oxygen Flow Rate (LPM) Lab Data Lab Results 08/14/25 12:53: VBG pH 7.31, VBG pCO2 76.2 H, VBG pO2 93.1 H, VBG HCO3 37.1 H, V BG Total CO2 39.4 H, VBG O2 Saturation 96.2 H, VBG Base Excess 10.7 H, VBG Lactic Acid 1.4, SARS-CoV-2 (PCR) Not detected, Influenza A Untype (PCR) Not detected, Influenza Type B (PCR) Not detected 08/14/25 14:18: PT 11.4, INR 1.03, APTT 25.1, Sodium 145, Potassium 5.9 H, Chloride 99, Carbon Dioxide 39 H, Anion Gap 12.9, BUN 15, Creatinine 0.70, Estimated Creat Clear 84, Estimated GFR 115, Est GFR ( Amer) 139, Glucose 117 H, Calcium 9.5, Magnesium 2.1, Total Bilirubin 0.8, AST 67 H, ALT 24, Alkaline Phosphatase 87, Total Creatine Kinase 68, Troponin I 0.02, C-Reactive Protein 3.7, Total Protein 8.4 H, Albumin 4.1, Globulin 4.3 H, Albumin/Globulin Ratio 1.0 L, Lipase 72 08/14/25 14:41: Urine Color Yellow, Urine Appearance Clear, Urine pH 7.5, Ur Specific Kimberly 1.010, Urine Protein Negative, Urine Glucose (UA) Negative, Urine Ketones Negative, Urine Blood Negative, Urine Nitrate Negative, Urine Bilirubin Negative, Urine Urobilinogen 0.2, Ur Leukocyte Esterase Negative, Urine RBC None, Urine WBC Occasional, Ur Squamous Epith Cells Occasional, Urine Bacteria None Orders (Tests/Meds): ED MEDICATIONS Generic Name Dose Route Start Last Admin Trade Name Freq PRN Reason Stop Dose Admin Sodium Chloride 3 ml 08/14/25 14:22 Sodium Chloride 3% 15ml [facility] 09/13/25 14:21 ONCE PRN INDUCE SPUTUM COLLECTION Discontinued Medications Generic Name Dose Route Start Last Admin Trade Name Freq PRN Reason Stop Dose Admin Albuterol Sulfate 20 mg 08/14/25 15:04 08/14/25 15:11 Albuterol 0.083% 2.5 Mg/3 Ml [facility] 08/14/25 15:05 20 mg ONCE ONE Administration Albuterol/Ipratropium 9 ml 08/14/25 12:20 08/14/25 13:53 Ipratropium/Albuterol 3 Ml [facility] 08/14/25 12:21 9 ml ONCE ONE Administration Ampicillin Sodium/Sulbactam 100 mls @ 200 mls/hr 08/14/25 12:20 08/14/25 15:46 Sodium 3 gm/ Sodium Chloride IV 08/14/25 12:21 200 mls/hr ONCE ONE Administration Azithromycin 500 mg/ Sodium 250 mls @ 250 mls/hr 08/14/25 12:20 08/14/25 13:53 Chloride IV 08/14/25 12:21 250 mls/hr ONCE ONE Administration Iopamidol 70 ml 08/14/25 14:30 08/14/25 14:31 Iopamidol-370 (76%);100ml Bottle IV 08/14/25 14:31 70 ml ONCE ONE Administration Methylprednisolone Sodium Succinate 125 mg 08/14/25 12:20 08/14/25 14:01 Methylprednisolone Sod Succ 125mg Vial IV 08/14/25 12:21 125 mg ONCE ONE Administration Sodium Chloride 50 ml 08/14/25 14:30 08/14/25 14:31 0.9 % Sodium Chloride 50 Ml Vial IV 08/14/25 14:31 50 ml ONCE ONE Administration Sodium Chloride 10 ml 08/14/25 14:30 08/14/25 14:31 Sodium Chloride 0.9% 10ml Syr (Rad Only) IV 08/14/25 14:31 10 ml ONCE ONE Administration ORDERS Category Date Time Status CTA Chest [CT angio chest PE protocol] Stat Cat Scan 08/14/25 12:21 Taken Activated Partial Thrombo Time Stat Lab 08/14/25 14:18 Completed C-Reactive Protein Stat Lab 08/14/25 14:18 Completed Comprehensive Metabolic Panel Stat Lab 08/14/25 14:18 Completed Creatine Kinase Stat Lab 08/14/25 14:18 Completed Erythrocyte Sedimentation Rate Stat Lab 08/14/25 14:18 Received Lactate Venous Stat Lab 08/14/25 12:20 Ordered Lipase Stat Lab 08/14/25 14:18 Completed Magnesium Stat Lab 08/14/25 14:18 Completed Prothrombin Time INR Stat Lab 08/14/25 14:18 Completed Rapid PCR Covid and Flu A/B Stat Lab 08/14/25 12:53 Completed Trop I [Troponin I] Stat Lab 08/14/25 14:18 Completed Troponin I Q3H Lab 08/14/25 15:30 Ordered Troponin I Q3H Lab 08/14/25 18:30 Ordered Urinalysis and Microscopic Stat Lab 08/14/25 14:41 Completed Blood Culture Stat Micro 08/14/25 12:53 Received Sputum Culture & Gram Stain Stat Micro 08/14/25 14:20 Received Urine Culture Stat Micro 08/14/25 14:41 Received Venous Blood Gas Stat RT 08/14/25 12:53 Completed ECG Data Tracing #1: Independently interpreted by me rate is 115, rhythm is regular, axis is rightward deviated, no ST elevation in anatomical contiguous leads, QTc 405. Medical Decision Narrative: patient is a 60-year-old male presenting to the emergency department for evaluation of low O2 at the correction of 86%. Patient is hemodynamically stable and nontoxic-appearing upon arrival, afebrile. Differential diagnosis includes flu, COVID, viral illness, pneumonia, COPD, among others. Workup will be conducted with hematologic labs, specific imaging. Silas Conrad MD: I was consulted by the KAELYN, and we discussed the complexity of the problems being addressed. I approved the treatment and management plan for this patient's care in the emergency department, thus performing a substantive portion of the medical decision making. Initial inventions include crystalloid bolus, analgesics. Initial hematologic labs are nonactionable patient has chronic hypercarbia CBC has been called for redraw, nonactionable hyperkalemia, initial troponin 0.02 urinalysis interpreted by me and not consistent with infection. Initial interventions patient got DuoNebs, antibiotics, steroids. CT chest informally interpreted by me no saddle PE, persistent lobar opacities in the right lower lobe which has been evidence of previously. On repeat evaluation patient still had significant respiratory distress will add on continuous albuterol the case was discussed with hospital medicine regarding management and they will admit the patient to their service for continued evaluation at this time. Critical Care <Olimpia Trejo (ED), DIRECTOR OF QUALITY CONTROL - Last Filed: 08/14/25 15:22> Critical Care Time Critical Care Time: No
--- NOTE | 2025-08-14 12:21 | CT_ITS ---
FINAL REPORT TECHNIQUE: The patient was injected with IV contrast. Axial images were obtained through the chest in a PE protocol. 3-D reconstruction images were also performed. Individualized dose reduction techniques using automated exposure control or adjustment of the MA and/or KV according to patient's size were employed. CLINICAL HISTORY: shortness of breath COMPARISON: 07/15/2025 FINDINGS: Mediastinal vasculature is adequately opacified. No pulmonary artery filling defects are identified to suggest PE. There is no aortic dissection. There is no axillary adenopathy. There is no hilar or mediastinal adenopathy. The heart size is normal. There is no pericardial or pleural effusion. There are patchy airspace infiltrates in the lung bases, particularly in the posterior right lower lobe, right middle lobe, and left lower lobe. These were also seen on the prior exam of 07/15/2025 and are unchanged since that time. There are nonobstructing left renal stones noted without evidence of hydronephrosis. There is a benign appearing cyst present in the right kidney measuring 1.7 cm in diameter. IMPRESSION: No pulmonary embolus or dissection. Patchy airspace infiltrates in the lung bases as described above, not significantly changed since the prior exam of 07/15/2025. Reviewed, Interpreted and Dictated by Federico Harris MD Transcribed by Coty Rodriguez Authenticated and [facility]
[2025-08-14 12:59] LABS: Coronavirus 19, PCR Not Detected (NotDetected); Influenza A, PCR Not Detected (NotDetected); Influenza B, PCR Not Detected (NotDetected)
[2025-08-14 13:06] LABS: Lactate Venous 1.4 mmol/L (0.4-2.0); VBG HCO3 37.1 mmol/L (23-30); VBG PCO2 76.2 mmol/L (35-51); VBG PH 7.31 mmol/L (7.31-7.41); VBG PO2 93.1 mmol/L (28-40)
[2025-08-14] MEDS: AZITHROMYCIN 500 MG in 0.9 % SODIUM CHLORIDE 250 ML 250 MG IV (13:53)
[2025-08-14] MEDS: IPRATROPIUM/ALBUTEROL 3 ML NEB 9 ML IH (13:53)
[2025-08-14] MEDS: METHYLPREDNISOLONE SOD SUCC 125MG VIAL 125 MG IV (14:01)
[2025-08-14] MEDS: 0.9 % SODIUM CHLORIDE 50 ML VIAL IV (14:31)
[2025-08-14] MEDS: IOPAMIDOL-370 (76%);100ML BOTTLE 70 ML IV (14:31)
[2025-08-14] MEDS: SODIUM CHLORIDE 0.9% 10ML SYR (RAD ONLY) 10 ML IV (14:31)
[2025-08-14 14:45] LABS: Alanine Aminotransferase 24 U/L (12-78); Albumin Level 4.1 g/dl (3.5-5.0); Albumin/Globulin Ratio 1.0 (1.1-1.8); Alkaline Phosphatase 87 U/L (38-126); Anion Gap 12.9 mEq/L (5-15); Aspartate Amino Transferase 67 U/L (17-59); Bilirubin,Total 0.8 mg/dl (0.2-1.3); Blood Urea Nitrogen 15 mg/dl (9-20); Calcium 9.5 mg/dl (8.4-10.2); Carbon Dioxide 39 mmol/L (22.0-30.0); Chloride 99 mmol/L (98-107); Creatine Kinase 68 U/L (55-170); Creatinine Clearance Estimated 84 mL/min (50-200); Creatinine,Serum 0.70 mg/dl (0.66-1.25); Estimated Glomerular Filt Rate 115 ml/min (>60); GFR (African American) 139 ML/MIN (>60); Globulin 4.3 g/dL (1.3-3.2); Glucose 117 mg/dl (74-100); Lipase 72 U/L (23-300); Magnesium 2.1 mg/dl (1.6-2.3); Potassium 5.9 mmoL/L (3.5-5.1); Sodium 145 mmol/L (136-145); Total Protein,Serum 8.4 g/dl (6.3-8.2)
[2025-08-14 14:51] LABS: C-Reactive Protein 3.7 mg/L (0-4)
[2025-08-14 14:53] LABS: Microscopic, Urine URINE MICROSCOPIC (MICROSCOPIC)
[2025-08-14 15:01] LABS: Activated Partial Thrombo Time 25.1 seconds (22.8-30.6); INR 1.03 (0.9-1.1); Prothrombin Time 11.4 seconds (10.1-12.5)
[2025-08-14 15:02] LABS: Troponin I 0.02 ng/ml (0.00-0.034)
[2025-08-14] MEDS: ALBUTEROL 0.083% 2.5 MG/3 ML NEB 20 MG IH (15:11)
[2025-08-14 15:23] LABS: Bilirubin,Urine Negative (Negative); Color,Urine YELLOW (Yellow); Glucose,Urine (UA) Negative (Negative); Ketones,Urine Negative (Negative); Leukocyte Esterase,Urine Negative (Negative); PH,Urine 7.5 (5.0-8.5); Protein,Urine Negative (Negative); Specific Gravity, Urine 1.010 (1.005-1.030); Urobilinogen,Urine 0.2 EU/dl (0.2)
--- NOTE | 2025-08-14 15:42 | PC.NURSE ---
Dr. Quintanilla, Hospitalist at [facility]. Sharon Sims, LOAN INTERVIEWER at [facility] also
[2025-08-14 15:43] LABS: Squamous Epithelial Cell,Urine Occasional #/hpf (0-5); WBC,Urine Occasional #/hpf (0-3)
[2025-08-14] MEDS: AMPICILLIN SODIUM/SULBACTAM 3 GM in 0.9 % SODIUM CHLORIDE 100 ML IV (15:46)
--- NOTE | 2025-08-14 15:51 | PC.NURSE ---
respiratory notified that Dr Quintanilla requested patient to be deep suctioned again.
--- NOTE | 2025-08-14 15:51 | PC.NURSE ---
respiratory called to suction again
--- NOTE | 2025-08-14 16:00 | PC.NURSE ---
RT at bedside for suctioning.
--- NOTE | 2025-08-14 16:04 | EXP.HP ---
History of Present Illness *Admission Date: 08/14/25 *Reason for visit:: Shortness of breath *History of present illness: Dean Fountain is a 60-year-old male with a medical history significant for suspected anoxic brain injury in 2019, functional paraplegic, chronic dysphagia with PEG tube dependence, former foreign body aspiration, cognitive impairment, chronic alcoholism presented from senior living with a few days of shortness of breath, accessory muscle use. Found to have hypoxia this morning at his senior living. Placed on oxygen as he was satting in the 80s. On arrival to the ER, patient had significant audible respiratory sounds with mild respiratory distress necessitating up to 4 L to sat in the low 90s. Workup in the ER with CT shows chronic right lower lobe pneumonia and scarring. Initiated on serial DuoNebs. Sputum sample obtained with nasotracheal suction. Flu and COVID-negative. Given his increased oxygen requirement however and exam, medicine was consulted for admission for treatment of suspected recurrent aspiration pneumonia. On my evaluation, patient has significant upper respiratory sounds and stridor concerning for poor secretion management. Opens eyes to verbal and physical stimuli. Attempted to cough when request made to cough. Unable to provide any review of systems or history. [facility] Disclaimer: The information contained in this section may have been updated after the patient was seen, as this information can be updated by other users. Medical History History of hemoptysis History of smoking 30 or more pack years Dislodged gastrostomy tube Cognitive impairment Flaccid paraplegia Dysphagia GERD (gastroesophageal reflux disease) COPD (chronic obstructive pulmonary disease) Hemoptysis Seizures Lung nodules Gastrostomy tube in place Surgical History S/P percutaneous endoscopic gastrostomy (PEG) tube placement Hx of esophagogastroduodenoscopy Family History Mother Non Hodgkin's lymphoma Father Lung cancer Social History Smoking Status: Never smoker years smoked: 30 smoking status stop date: 2018 second hand exposure: No alcohol intake: former substance use type: denies use current occupational status: disabled Travel in the last 8 weeks?: None household members: other housing: senior living caffeine: No Have you lived/traveled outside [place] in past 30 days?: No Contact w/someone who lives/traveled outside US past 30 days?: No Exposure to someone with infectious disease in past 14 days?: No Do you have a fever (greater than 100.4 F or 38 C)?: No Have you tested positive for COVID-19?: No Exposed to someone with COVID-19 in past 14 days?: No Do you have a sore throat?: No Do you have a cough?: No Do you have any weakness?: No Do you have any diarrhea?: No Are you experiencing any unusual bleeding?: No Do you have any muscle aches/pain?: No Do you have any abdominal pain?: No Are you experiencing loss of taste or smell?: No Other Medical History Have you received the Flu Vaccine for this season: No Have you received the Pneumonia Vaccine: No Review of Systems Review of Systems Review of systems:: unable to obtain Meds Home Medications and Allergies Home Medications ?Medication ?Instructions ?Recorded ?Confirmed ?Type aspirin 81 mg chewable tablet 81 mg feeding tube DAILY 12/24/22 07/15/25 History folic acid 0.8 mg capsule 0.8 mg feeding tube DAILY 12/24/22 07/15/25 History metoclopramide HCl 5 mg tablet 5 mg feeding tube BID 12/24/22 07/15/25 History potassium chloride 20 mEq/15 mL 20 meq feeding tube BID 12/24/22 07/15/25 History oral liquid quetiapine 100 mg tablet 50 mg feeding tube TID 12/24/22 07/15/25 History thiamine HCl (vitamin B1) 100 mg 100 mg feeding tube DAILY 12/24/22 07/15/25 History tablet valproic acid (as sodium salt) 250 500 mg feeding tube BID 12/24/22 07/15/25 History mg/5 mL oral solution Lactobacillus acidophilus 1 1,000 mmu cells PO DAILY 12/25/22 07/15/25 History billion cell capsule melatonin 3 mg tablet 3 mg PO HS 12/25/22 07/15/25 History polyethylene glycol 3350 17 17 g PO DAILY 12/25/22 07/15/25 History gram/dose oral powder (Miralax) doxazosin 1 mg tablet 1 mg feeding tube DAILY 05/16/24 07/15/25 History alprazolam 0.25 mg tablet 0.25 mg feeding tube HS 07/15/25 07/15/25 History cholecalciferol (vitamin D3) 50 100 mcg PO DAILY 07/15/25 07/15/25 History mcg (2,000 unit) tablet ipratropium 0.5 mg-albuterol 3 mg 3 ml inhalation TID 07/15/25 07/15/25 History (2.5 mg base)/3 mL nebulization soln menthol 0.44 %-zinc oxide 20.6 % 1 applic topical QODHS 07/15/25 07/15/25 History topical ointment (Calmoseptine) pantoprazole 40 mg granules 40 mg PO DAILY 07/15/25 07/15/25 History delayed-release for susp in packet propylene glycol 0.6 % eye drops 1 drp ophthalmic (eye) QID 07/15/25 07/15/25 History (Systane Balance) selenium sulfide 1 % shampoo 1 applic topical MOFR 07/15/25 07/15/25 History (Selsun Blue) sulfamethoxazole 800 1 tab PO BID 5 days #9 tabs 07/17/25 Rx mg-trimethoprim 160 mg tablet (Bactrim DS) New Prescriptions to Start Prescriptions: Allergies Allergy/AdvReac Type Severity Reaction Status Date / Time No Known Allergies Allergy Verified 05/28/24 10:34 Exam Data for Last 24 hours Vital signs and Labs for Last 24 Hours: Temp Pulse Resp BP Pulse Ox O2 Del Method O2 Flow Rate 98.1 F 80 16 151/89 H 91 L Nasal Cannula 3 08/14/25 11:22 08/14/25 15:17 08/14/25 14:00 08/14/25 14:00 08/14/25 13:30 08/14/25 13:30 08/14/25 13:30 Laboratory Results - last 24 hr 08/14/25 12:53: VBG pH 7.31, VBG pCO2 76.2 H, VBG pO2 93.1 H, VBG HCO3 37.1 H, VBG Total CO2 39.4 H, VBG O2 Saturation 96.2 H, VBG Base Excess 10.7 H, VBG Lactic Acid 1.4, SARS-CoV-2 (PCR) Not detected, Influenza A Untype (PCR) Not detected, Influenza Type B (PCR) Not detected 08/14/25 14:18: PT 11.4, INR 1.03, APTT 25.1, Sodium 145, Potassium 5.9 H, Chloride 99, Carbon Dioxide 39 H, Anion Gap 12.9, BUN 15, Creatinine 0.70, Estimated Creat Clear 84, Estimated GFR 115, Est GFR ( Amer) 139, Glucose 117 H, Calcium 9.5, Magnesium 2.1, Total Bilirubin 0.8, AST 67 H, ALT 24, Alkaline Phosphatase 87, Total Creatine Kinase 68, Troponin I 0.02, C-Reactive Protein 3.7, Total Protein 8.4 H, Albumin 4.1, Globulin 4.3 H, Albumin/Globulin Ratio 1.0 L, Lipase 72 08/14/25 14:41: Urine Color Yellow, Urine Appearance Clear, Urine pH 7.5, Ur Specific [place] 1.010, Urine Protein Negative, Urine Glucose (UA) Negative, Urine Ketones Negative, Urine Blood Negative, Urine Nitrate Negative, Urine Bilirubin Negative, Urine Urobilinogen 0.2, Ur Leukocyte Esterase Negative, Urine RBC None, Urine WBC Occasional, Ur Squamous Epith Cells Occasional, Urine Bacteria None I & O for Last 24 hours: Intake & Output 08/11/25 08/12/25 08/13/25 08/14/25 23:59 23:59 23:59 23:59 Weight 76.827 kg Constitutional Constitutional: mild distress, thin, chronically ill appearing and cooperative Comments: Pleasant cognitive impairment. *Routine HEENT Exam Head: Present normocephalic Eye: Present EOMI and PERRL ENT: Present mucous membranes moist Comments: Seborrheic dermatitis in hairline of bonilla *Routine Neck Exam Neck: Present supple; Absent lymphadenopathy *Routine Respiratory Exam Respiratory: Present rhonchi and crackles (Faint and left base); Absent wheezes Comments: Some intermittent apnea while sleeping *Routine Cardiovascular Exam Cardiovascular: Present RRR *Routine Abdominal Exam Abdominal: Present soft and normoactive bowel sounds; Absent tenderness Comments: PEG tube in place in left upper abdomen *Routine Rectal Exam Rectal:: deferred *Routine Genitalia Exam Genitalia:: deferred *Routine Extremities Exam Extremities: Absent cyanosis, clubbing or edema *Routine Skin Exam Skin: Present intact and warm; Absent rash *Routine Neurological Exam Neurological: Present alert Assessment and Plan *Assessment and plan (1) Pneumonia: Status: Acute Qualifiers: Aspiration pneumonia type: due to gastric secretions Laterality: right Lung location: lower lobe of lung Pneumonia type: aspiration pneumonia Qualified Code(s): J69.0 - Pneumonitis due to inhalation of food and vomit Category: Medical Code(s): J18.9 - Pneumonia, unspecified organism (2) Wernicke-Korsakoff syndrome (alcoholic): Status: Chronic Category: Medical Code(s): F10.96 - Alcohol use, unspecified with alcohol-induced persisting amnestic disorder (3) Severe protein-calorie malnutrition: Status: Chronic Category: Medical Code(s): E43 - Unspecified severe protein-calorie malnutrition (4) Gastrojejunostomy tube status: Status: Chronic Category: Medical Code(s): Z93.4 - Other artificial openings of gastrointestinal tract status (5) Seizure disorder: Status: Chronic Category: Medical Code(s): G40.909 - Epilepsy, unspecified, not intractable, without status epilepticus (6) Encephalopathy chronic: Status: Chronic Category: Medical Code(s): G93.49 - Other encephalopathy (7) Flaccid paraplegia: Status: Acute Category: Medical Code(s): G82.20 - Paraplegia, unspecified Plan Dean Fountain is a 60-year-old male with a medical history significant for suspected anoxic brain injury in 2019, functional paraplegic, chronic dysphagia with PEG tube dependence, former foreign body aspiration, cognitive impairment, chronic alcoholism presented from senior living with hypoxia this morning. Concern for recurrent pneumonia. Discussed case with ER provider, request admission given increased oxygen requirement from baseline. I agreed to admit for further care. Initiated on broad-spectrum antibiotics based on previous sputum cultures. Pulmonology to evaluate in the morning. Problems addressed as follows: #aspiration pneumonia, ruled in #Chronic dysphagia with PEG tube dependence ? Per senior living, patient has had shortness of breath, accessory muscle use, fevers at senior living. CTA chest suggestive of recurrent versus chronic right lower lobe infiltrate. ? Presents with recurrent pneumonia, aspiration pneumonia in the past. Last positive sputum culture was E. coli and Morganella back in 2023. Has previously grown Providencia and Enterobacter. - Received Unasyn and azithromycin in the ER. Will continue azithromycin and transition to Invanz 1 g IV daily based on previous sputum culture results and resistance patterns with ESBL. - White count 13. Hemoglobin normal at 16. - Goal sats greater 90 send, currently on 4 L. - Sputum and blood cultures obtained. - History of anoxic brain injury in 2019, PEG tube dependence due to chronic dysphagia. Unfortunately puts him at high risk for aspiration. - Repeat CBC, CMP, magnesium ordered for the morning - ESR less than 1 #Mood disorder: Continue valproic acid 500 mg twice, Seroquel for female grams 3 times daily, melatonin 3 mg nightly, alprazolam 0.25 mg nightly #BPH: Continue home doxazosin 1 mg daily #GERD: Continue home PPI. #History of anoxic brain injury #Functional paraplegia #Debility #Cognitive impairment ? Continue supportive therapy. Complicates all aspects of his care Will resume tube feed in the morning. Continue multivitamin daily Full code DVT prophylaxis: PLOV N.p.o. overnight
--- NOTE | 2025-08-14 16:34 | PC.NURSE ---
Called report to PETER Bear
[2025-08-14 17:23] LABS: Hematocrit 52.4 % (42.0-52.0); Hemoglobin 16.4 g/dL (14.1-18.0); Immature Granulocytes % 0.3 %; Mean Corpuscular HGB Conc 31.3 g/dL (31.8-35.4); Mean Corpuscular Hemoglobin 32.2 pg (27.0-31.2); Mean Corpuscular Volume 102.7 fl (80-94); Nucleated Red Blood Cells % 0 %; Platelet Count 277 K/mm3 (142-424); Red Blood Count 5.10 M/mm3 (4.60-6.20); Red Cell Distribution Width-SD 51.3 fL; White Blood Count 13.4 K/mm3 (4.8-10.8)
[2025-08-14 17:33] LABS: Adenovirus,PCR Not Detected (NotDetected); Chlamydophila Pneumoniae, PCR Not Detected (NotDetected); Coronavirus 19, PCR Not Detected (NotDetected); Coronovirus HKU1,PCR Not Detected (NotDetected); Influenza A, PCR Not Detected (NotDetected); Influenza AH1, 2009 Not Detected (NotDetected); Influenza AH1, PCR Not Detected (NotDetected); Influenza AH3,PCR Not Detected (NotDetected); Influenza B, PCR Not Detected (NotDetected); Mycoplasma Pneumoniae, PCR Not Detected (NotDetected); Parainfluenza 1, PCR Not Detected (NotDetected); Parainfluenza 2, PCR Not Detected (NotDetected); Parainfluenza 3, PCR Not Detected (NotDetected); Parainfluenza 4, PCR Not Detected (NotDetected)
[2025-08-14] MEDS: ERTAPENEM SODIUM 1 GM in 0.9 % SODIUM CHLORIDE 50 ML IV (18:04)
[2025-08-14 19:20] LABS: Troponin I < 0.01 ng/ml (0.00-0.034)
--- NOTE | 2025-08-14 20:02 | PC.WOUNDNOTE ---
BLANCHABLE AREA OF REDNESS NOTED TO INNER RIGHT HEEL MOTTLING NOTED TO BILATERAL KNEES G TUBE PRESENT. REDNESS NOTED WITH SOME SANGUENOUS DRAINAGE NOTED. SOME AREAS OF REDNESS NOTED TO TOP OF TOES ON LEFT FOOT.
[2025-08-14] MEDS: QUETIAPINE 25MG TABLET 25 MG PO (20:51)
[2025-08-14] MEDS: MELATONIN 5MG TABLET 5 MG PO (20:51)
[2025-08-14 21:36] LABS: Troponin I < 0.01 ng/ml (0.00-0.034)
--- NOTE | 2025-08-15 02:14 | PC.NURSE ---
Pt resting through most of the shift. Respirations even and unlabored, q2h turn. Currently resting in bed with eyes closed. Bed is low, locked, and call light is in reach.
[2025-08-15 04:00] VITALS: BP 125/70; PULSE 112; RESP 16; TEMP 36.7; O2SAT 95; BMI 22.9
[2025-08-15 06:45] LABS: Albumin Level 3.7 g/dl (3.5-5.0); Chloride 102 mmol/L (98-107)
[2025-08-15 06:46] LABS: Potassium 3.8 mmoL/L (3.5-5.1)
[2025-08-15 06:48] LABS: Alanine Aminotransferase 23 U/L (12-78); Albumin/Globulin Ratio 0.9 (1.1-1.8); Anion Gap 11.8 mEq/L (5-15); Aspartate Amino Transferase 36 U/L (17-59); Blood Urea Nitrogen 16 mg/dl (9-20); Carbon Dioxide 40 mmol/L (22.0-30.0); Creatinine Clearance Estimated 84 mL/min (50-200); Creatinine,Serum 0.70 mg/dl (0.66-1.25); Estimated Glomerular Filt Rate 115 ml/min (>60); GFR (African American) 139 ML/MIN (>60); Globulin 3.9 g/dL (1.3-3.2); Total Protein,Serum 7.6 g/dl (6.3-8.2)
[2025-08-15 06:49] LABS: Alkaline Phosphatase 93 U/L (38-126); Bilirubin,Total 0.2 mg/dl (0.2-1.3); Calcium 9.3 mg/dl (8.4-10.2); Glucose 136 mg/dl (74-100); Magnesium 2.2 mg/dl (1.6-2.3)
[2025-08-15 06:50] LABS: Hematocrit 48.1 % (42.0-52.0); Hemoglobin 15.1 g/dL (14.1-18.0); Immature Granulocytes % 0.2 %; Mean Corpuscular HGB Conc 31.4 g/dL (31.8-35.4); Mean Corpuscular Hemoglobin 31.9 pg (27.0-31.2); Mean Corpuscular Volume 101.7 fl (80-94); Nucleated Red Blood Cells % 0 %; Platelet Count 271 K/mm3 (142-424); Red Blood Count 4.73 M/mm3 (4.60-6.20); Red Cell Distribution Width-SD 50.4 fL; White Blood Count 10.3 K/mm3 (4.8-10.8)
[2025-08-15 07:40] VITALS: BP 147/75; PULSE 114; RESP 20; TEMP 36.9; O2SAT 93
--- NOTE | 2025-08-15 07:57 | SW/DCPLANNER ---
Addendum entered by Elidia Linares 08/15/25 10:59: I have updated Alicia taylor/ [facility] that patient will return today w/ midline 5-7 days of IV antibiotics and will need oxygen. Original Note: Patient currently resides at [facility] level of care. Updated patient information faxed to Alicia taylor/ [facility]. Discharge date is unknown at this time. CM will continue to follow up.
[2025-08-15 08:19] LABS: Sodium 150 mmol/L (136-145)
--- NOTE | 2025-08-15 08:40 | P.CONPHA_ITS ---
Pharmacy Intervention Comments: MEDICATION RECONCILIATION COMPLETED ON PATIENT USING MAR FROM [facility]. -JOB BUSTAMANTE, DAHIANAD
--- NOTE | 2025-08-15 08:40 | HMH.PHAINT1 ---
Pharmacy Intervention Comments: MEDICATION RECONCILIATION COMPLETED ON PATIENT USING MAR FROM [facility]. -JOB BUSTAMANTE, DAHIANAD
[2025-08-15] MEDS: QUETIAPINE 25MG TABLET 25 MG PO ×2 (08:46→14:06)
[2025-08-15] MEDS: DOXAZOSIN MESYLATE 1 MG TABLET PO (08:46)
[2025-08-15] MEDS: POLYETHYLENE GLYCOL 3350 17 GM PACKET PO (08:46)
[2025-08-15] MEDS: VALPROIC ACID 250 MG/5 ML SOL UDC 500 MG PO (08:47)
--- NOTE | 2025-08-15 08:54 | DIET.NUTRFU ---
Spoke to nurse at [facility] where patient [facility]. He is dependent on 100% nutrition via tubefeeding secondary to dysphasia. Has a PEG placed. According to nurse he has been tolerating tubefeeding. Recently changed to Suplenda at 60ml/hr x20 hours from 1pm-10am. Our facility equivalent is Nepro 1.8- at goal rate will provide 97gm protein and 2160kcal with formula fluid at 872, need to flush with 150 Q6H to provide 6000ml for total fluid of 1472ml. currently no IVF running- Na 150H may benefit from bolus until TF goals are met. Will review with provider during rounds
--- NOTE | 2025-08-15 09:04 | HMH.PHAAMS2 ---
- Antimicrobial Stewardship Review culture & sensitivity review Stewardship interventions: culture & sensitivity review (CURRENTLY ON AZITH AND ERTAPENEM, WBC DOWN FROM 13.4K TO 10.3K TODAY, AFEBRILE, HX OF ESBL E COLI/MORGANELLA FROM BRONCH.)
--- NOTE | 2025-08-15 09:04 | HMH.PTEV ---
Physical Therapy Evaluation Rehab PT IP Evaluation Start: 08/14/25 19:54 Freq: ONCE Status: Active Protocol: Document 08/15/25 08:51 KARLA (Rec: 08/15/25 08:56 KARLA [id number]) Subjective/History History History Per H&P: Dean Fountain is a 60-year-old male with a medical history significant for suspected anoxic brain injury in 2019, functional paraplegic, chronic dysphagia with PEG tube dependence, former foreign body aspiration, cognitive impairment, chronic alcoholism presented from [facility] with a few days of shortness of breath, accessory muscle use. Found to have hypoxia this morning at his fpc. Placed on oxygen as he was satting in the 80s. On arrival to the ER, patient had significant audible respiratory sounds with mild respiratory distress necessitating up to 4 L to sat in the low 90s. Workup in the ER with CT shows chronic right lower lobe pneumonia and scarring. Initiated on serial DuoNebs. Sputum sample obtained with nasotracheal suction. Flu and COVID-negative. Given his increased oxygen requirement however and exam , medicine was consulted for admission for treatment of suspected recurrent aspiration pneumonia. On my evaluation, patient has significant upper respiratory sounds and stridor concerning for poor secretion management. Opens eyes to verbal and physical stimuli. Attempted to cough when request made to cough. Unable to provide any review of systems or history. Subjective Subjective Pt with difficulty answering hx questions d/t baseline confusion. Confirm hx with CM. PLOF: Pt reports he uses w /c. HOME: Long-term care at a fpc ASSIST: Pt reports he requires assistance for all mobility tasks. [facility] How much help from another person do you currently need... Turning from your A lot back to your side while in a flat bed without using bedrails? Moving from lying on A lot back to sitting on the side of a flat bed without using bedrails? Moving to and from a A lot bed to a chair ( including a wheelchair)? Standing up from a A lot chair using your arms? (e.g., wheelchair, bedside chair) Walking in hospital A lot room? Climbing 3-5 steps Total with a railing? Mobility Score 11 Mobility Level [facility] Mobility 4 Move to chair/commode Mobility Calculator Rehab PT IP Eval Objective Appearance Patient Behavior Appropriate,Confused Difficulty following moderate instructions Speech Pattern Mumbled,Difficulty Finding Words Ambulation Patient Able to No Ambulate Balance Ability to Arise Unable Sitting Balance Leans or slides in chair Transfers Bed Transfer Ability Maximum x 2 (75% assist) Rehab PT IP prob,goals,plan Problems Date of Evaluation: 08/15/25 Rehab Potential Rehab Potential Innapropriate for Skilled Therapy Discharge Plan PT Discharge Plan Pt appears to be at his reported baseline and is not appropriate for skilled inpatient acute PT at this time . Eval Complexity Eval Charge Codes 55227 - Moderate Complexity PHYSICIAN CERTIFICATION: I certify the specified therapy services for Dean Fountain are required, authorized, and reviewed every 30 days.
--- NOTE | 2025-08-15 09:06 | HMH.OTEV ---
OT Evaluation Rehab OT IP Evaluation Start: 08/14/25 19:45 Freq: ONCE Status: Active Protocol: Document 08/15/25 09:00 AVIS (Rec: 08/15/25 09:06 AVIS [id number]) Rehab OT IP Assessment Subjective History PER HPI: *Admission Date: 08/14/25 *Reason for visit:: Shortness of breath *History of present illness: Dean Fountain is a 60-year-old male with a medical history significant for suspected anoxic brain injury in 2019, functional paraplegic, chronic dysphagia with PEG tube dependence, former foreign body aspiration, cognitive impairment, chronic alcoholism presented from skilled nursing with a few days of shortness of breath, accessory muscle use. Found to have hypoxia this morning at his skilled nursing. Placed on oxygen as he was satting in the 80s. On arrival to the ER, patient had significant audible respiratory sounds with mild respiratory distress necessitating up to 4 L to sat in the low 90s. Workup in the ER with CT shows chronic right lower lobe pneumonia and scarring. Initiated on serial DuoNebs. Sputum sample obtained with nasotracheal suction. Flu and COVID-negative. Given his increased oxygen requirement however and exam, medicine was consulted for admission for treatment of suspected recurrent aspiration pneumonia. On my evaluation, patient has significant upper respiratory sounds and stridor concerning for poor secretion management. Opens eyes to verbal and physical stimuli. Attempted to cough when request made to cough. Unable to provide any review of systems or history. Subjective I don't do much more. Pt supine in bed when therapy arrived this AM. Pt oriented to name and some PLOF. Therapy was unable to understand pt at times. Pt agreed to sit on EOB. Pt was Max x2 to sit up in bed as pt was unable to move LB to EOB. Pt was moved back to supine position. Pt left supine in bed with call light and all other needs within reach. Upon further questioning, pt live at skilled nursing in [place] in LTC. Pt is a camila lift and Max A for all needs. Objective Patient Orientation Person,Patient Baseline Bed Mobility bed mobility-scooting,bed mobility - supine/sit Assist Level Maximum x 2 (75% assist) Decrease in No Endurance Rehab OT IP prob,goals,plan Problems Date of Evaluation: 08/15/25 Rehab Potential Rehab Potential Innapropriate for Skilled Therapy Discharge Plan OT Discharge Plan Pt is at baseline for functional occupational performance and would not benefit from skilled acute OT services and interventions while admitted at [facility]. Once medically stable and DC from [facility], pt can DC back to LTC facility. Eval Complexity Eval Charge Codes 38055 - Moderate Complexity PHYSICIAN CERTIFICATION: I certify the specified therapy services for Dean Fountain are required, authorized, and reviewed every 30 days.
--- NOTE | 2025-08-15 09:38 | P.CONS_ITS ---
History of Present Illness History of present illness: Mr. Fountain is a 60-year-old male senior living resident greater than [id number] smoking history last seen in pulmonary clinic May 2024 during which patient noted to have hemoptysis during an endoscopy procedure followed by bronchoscopy noted to have right lower lobe endobronchial lesion likely foreign body appeared like tooth extracted at the point of time with cultures grew E. coli and Morganella completed 14-day course of Bactrim presented to the ER with worsening respiratory chills concerning for pneumonia and pulmonary was called for further evaluation and management. [facility] Disclaimer: The information contained in this section may have been updated after the patient was seen, as this information can be updated by other users. Medical History History of hemoptysis History of smoking 30 or more pack years Dislodged gastrostomy tube Cognitive impairment Flaccid paraplegia Dysphagia GERD (gastroesophageal reflux disease) COPD (chronic obstructive pulmonary disease) Hemoptysis Seizures Lung nodules Gastrostomy tube in place Surgical History S/P percutaneous endoscopic gastrostomy (PEG) tube placement Hx of esophagogastroduodenoscopy Family History Mother Non Hodgkin's lymphoma Father Lung cancer Social History Smoking Status: Never smoker years smoked: 30 smoking status stop date: 2018 second hand exposure: No alcohol intake: former substance use type: denies use current occupational status: disabled Travel in the last 8 weeks?: None household members: other housing: senior living caffeine: No Have you lived/traveled outside [place] in past 30 days?: No Contact w/someone who lives/traveled outside [place] past 30 days?: No Exposure to someone with infectious disease in past 14 days?: No Do you have a fever (greater than 100.4 F or 38 C)?: No Have you tested positive for COVID-19?: No Exposed to someone with COVID-19 in past 14 days?: No Do you have a sore throat?: No Do you have a cough?: No Do you have any weakness?: No Do you have any diarrhea?: No Are you experiencing any unusual bleeding?: No Do you have any muscle aches/pain?: No Do you have any abdominal pain?: No Are you experiencing loss of taste or smell?: No Review of Systems Constitutional Constitutional: Reports body ache(s) Eyes Eyes: Denies eye discharge, Denies dry eyes and Denies irritation ENT Ears, Nose, Mouth, and Throat: Denies epistaxis *Cardiovascular Cardiovascular: Reports dyspnea *Respiratory Respiratory: Reports change in phlegm color, Reports chest congestion, Reports cough, Reports dyspnea, Reports excessive phlegm production, Denies hemoptysis, Denies pain on inspiration and Denies pain with cough *Gastrointestinal Gastrointestinal: Denies abdominal pain Pulmonology Exam Inpatient Vital signs and Labs for Last 24 Hours: Temp Pulse Resp BP Pulse Ox O2 Del Method O2 Flow Rate 98.4 F 114 H 20 147/75 H 93 L Nasal Cannula 4 08/15/25 07:40 08/15/25 07:40 08/15/25 07:40 08/15/25 07:40 08/15/25 07:40 08/15/25 09:00 08/15/25 09:00 Laboratory Results - last 24 hr 08/14/25 12:52: Chlamy pneumoniae PCR Not detected, Adenovirus (PCR) Not detected, B. pertussis DNA (PCR) Not detected, Coronavirus OC43 (PCR) Not detected, Coronavirus HKU1 (PCR) Not detected, Coronavirus 229E (PCR) Not detected, SARS-CoV-2 (PCR) Not detected, Coronavirus NL63 (PCR) Not detected, Human Metapneumovir PCR Not detected, Influenza A (H1) PCR Not detected, Influ A (H1N1/09) PCR Not detected, Influenza A (H3) PCR Not detected, Influenza Type A (PCR) Not detected, Influenza Type B (PCR) Not detected, M. pneumoniae (PCR) Not detected, Parainfluenza 1 (PCR) Not detected, Parainfluenza 2 (PCR) Not detected, Parainfluenza 3 (PCR) Not detected, Parainfluenza 4 (PCR) Not detected, RSV (PCR) Not detected, Entero/Rhino (PCR) Not detected 08/14/25 12:53: VBG pH 7.31, VBG pCO2 76.2 H, VBG pO2 93.1 H, VBG HCO3 37.1 H, V BG Total CO2 39.4 H, VBG O2 Saturation 96.2 H, VBG Base Excess 10.7 H, VBG Lactic Acid 1.4, SARS-CoV-2 (PCR) Not detected, Influenza A Untype (PCR) Not detected, Influenza Type B (PCR) Not detected 08/14/25 14:18: ESR 1, PT 11.4, INR 1.03, APTT 25.1, Sodium 145, Potassium 5.9 H , Chloride 99, Carbon Dioxide 39 H, Anion Gap 12.9, BUN 15, Creatinine 0.70, Estimated Creat Clear 84, Estimated GFR 115, Est GFR ( Amer) 139, Glucose 117 H, Calcium 9.5, Magnesium 2.1, Total Bilirubin 0.8, AST 67 H, ALT 24, Alkaline Phosphatase 87, Total Creatine Kinase 68, Troponin I 0.02, C-Reactive Protein 3.7, Total Protein 8.4 H, Albumin 4.1, Globulin 4.3 H, Albumin/Globulin Ratio 1.0 L, Lipase 72 08/14/25 14:41: Urine Color Yellow, Urine Appearance Clear, Urine pH 7.5, Ur Specific [place] 1.010, Urine Protein Negative, Urine Glucose (UA) Negative, Urine Ketones Negative, Urine Blood Negative, Urine Nitrate Negative, Urine Bilirubin Negative, Urine Urobilinogen 0.2, Ur Leukocyte Esterase Negative, Urine RBC None, Urine WBC Occasional, Ur Squamous Epith Cells Occasional, Urine Bacteria None 08/14/25 15:32: WBC 13.4 H, RBC 5.10, Hgb 16.4, Hct 52.4 H, MCV 102.7 H, MCH 32.2 H, MCHC 31.3 L, RDW 13.4, Plt Count 277, MPV 12.4 H, Neut % (Auto) 79.6, Lymph % (Auto) 12.6, [place] % (Auto) 6.2, Eos % (Auto) 0.7, Baso % (Auto) 0.6, N eut # (Auto) 10.7 H, Lymph # (Auto) 1.7, [place] # (Auto) 0.8, Eos # (Auto) 0.1, Baso # (Auto) 0.1 08/14/25 16:41: Troponin I < 0.01 08/14/25 18:35: Troponin I < 0.01 08/15/25 05:21: WBC 10.3, RBC 4.73, Hgb 15.1, Hct 48.1, MCV 101.7 H, MCH 31.9 H, MCHC 31.4 L, RDW 13.3, Plt Count 271, MPV 11.9 H, Neut % (Auto) 78.6, Lymph % (Auto) 12.7, [place] % (Auto) 8.2, Eos % (Auto) 0.0 L, Baso % (Auto) 0.3, Neut # (Auto) 8.1 H, Lymph # (Auto) 1.3, [place] # (Auto) 0.9, Eos # (Auto) 0.0, Baso # (Auto) 0.0, Sodium 150 H, Potassium 3.8 D, Chloride 102, Carbon Dioxide 40 H, Anion Gap 11.8, BUN 16, Creatinine 0.70, Estimated Creat Clear 84, Estimated GFR 115, Est GFR ( Amer) 139, Glucose 136 H, Calcium 9.3, Magnesium 2.2, Total Bilirubin 0.2, AST 36 D, ALT 23, Alkaline Phosphatase 93, Total Protein 7.6, Albumin 3.7, Globulin 3.9 H, Albumin/Globulin Ratio 0.9 L I & O for Labs for Last 24 Hours: Intake & Output 08/12/25 08/13/25 08/14/25 08/15/25 23:59 23:59 23:59 23:59 Intake Total 400 / 400 Output Total 0 / 0 0 / 0 Balance 400 / 400 0 / 0 Weight 172 lb 6 oz 169 lb 4.8 oz Microbiology Reports for the Last 24 Hours: Microbiology 08/14/25 14:20 Sputum - Nasotracheal Suction Gram Stain - Final Constitutional: Present moderate distress Head: Present normocephalic and atraumatic ENT: Present normal exam, normal oropharynx and mucous membranes moist Neck: Present normal inspection and full ROM Respiratory: Present respiratory distress, rhonchi, diminished air movement and able to speak in complete sentences; Absent prolonged expiratory phase or wheezes Cardiac: Present S1/S2, Tachycardia and radial pulses present GI: Present soft and distention; Absent tenderness or guarding Skin: Present intact; Absent cyanosis or jaundice Neuro: Present alert and awake Extremities: Present normal inspection; Absent clubbing or cyanosis Psychiatric: Present unable to assess Meds Home Medications and Allergies Home Medications ?Medication ?Instructions ?Recorded ?Confirmed ?Type aspirin 81 mg chewable tablet 81 mg feeding tube DAILY 12/24/22 08/14/25 History folic acid 0.8 mg capsule 0.8 mg feeding tube DAILY 08/14/25 History metoclopramide HCl 5 mg tablet 5 mg feeding tube BID 0 12/24/22 08/14/25 History potassium chloride 20 mEq/15 mL 20 meq feeding tube BI D 12/24/22 08/14/25 History oral liquid quetiapine 100 mg tablet 50 mg feeding tube TID 12/2408/14/25 History thiamine HCl (vitamin B1) 100 mg 100 mg feeding tube D AILY 12/24/22 08/14/25 History tablet valproic acid (as sodium salt) 250 500 mg feeding tube BID 12/24/22 08/14/25 History mg/5 mL oral solution Lactobacillus acidophilus 1 1,000 mmu cells PO DAILY 0 12/25/22 08/14/25 History billion cell capsule melatonin 3 mg tablet 3 mg PO HS 12/25/22 08/14/25 History polyethylene glycol 3350 17 17 g PO DAILY 12/25/2206/29 History gram/dose oral powder (Miralax) doxazosin 1 mg tablet 1 mg feeding tube DAILY 05/0608/14/25 History alprazolam 0.25 mg tablet 0.25 mg feeding tube HS 07/0608/14/25 History cholecalciferol (vitamin D3) 50 100 mcg PO DAILY 07/1508/14/25 History mcg (2,000 unit) tablet ipratropium 0.5 mg-albuterol 3 mg 3 ml inhalation TID 07/15/25 08/14/25 History (2.5 mg base)/3 mL nebulization soln menthol 0.44 %-zinc oxide 20.6 % 1 applic topical Q48H 07/15/25 08/15/25 History topical ointment (Calmoseptine) pantoprazole 40 mg granules 40 mg PO DAILY 07/15/25 History delayed-release for susp in packet propylene glycol 0.6 % eye drops 1 drp ophthalmic (eye ) QID 07/15/25 08/14/25 History (Systane Balance) selenium sulfide 1 % shampoo 1 applic topical MOFR 06/2908/14/25 History ([place]) acetaminophen 500 mg tablet 500 mg PO Q6HP PRN Mild Pa in 08/15/25 08/15/25 History (Scale Score 1-4) New Prescriptions to Start Prescriptions: Allergies Allergy/AdvReac Type Severity Reaction Status Date / Time No Known Allergies Allergy Verified 05/28/24 10:34 Results Laboratory Findings 08/15/25 05:21 08/15/25 05:21 PT/INR, D-dimer PT 11.4 seconds (10.1-12.5) 08/14/25 14:18 INR 1.03 (0.9-1.1) 08/14/25 14:18 Abnormal lab findings: Abnormal Labs 08/14/25 08/14/25 08/14/25 12:53 14:18 15:32 WBC 13.4 H Hct 52.4 H MCV 102.7 H MCH 32.2 H MCHC 31.3 L MPV 12.4 H Eos % (Auto) Neut # (Auto) 10.7 H VBG pCO2 76.2 H VBG pO2 93.1 H VBG HCO3 37.1 H VBG Total CO2 39.4 H VBG O2 Saturation 96.2 H VBG Base Excess 10.7 H Sodium Potassium 5.9 H Carbon Dioxide 39 H Glucose 117 H AST 67 H Total Protein 8.4 H Globulin 4.3 H Albumin/Globulin Ratio 1.0 L 08/15/25 05:21 WBC Hct MCV 101.7 H MCH 31.9 H MCHC 31.4 L MPV 11.9 H Eos % (Auto) 0.0 L Neut # (Auto) 8.1 H VBG pCO2 VBG pO2 VBG HCO3 VBG Total CO2 VBG O2 Saturation VBG Base Excess Sodium 150 H Potassium Carbon Dioxide 40 H Glucose 136 H AST Total Protein Globulin 3.9 H Albumin/Globulin Ratio 0.9 L Assessment and Plan *Assessment and plan (1) Pneumonia: Status: Acute Category: Medical Code(s): J18.9 - Pneumonia, unspecified organism (2) Hypoxic respiratory failure: Status: Acute Category: Medical Code(s): J96.91 - Respiratory failure, unspecified with hypoxia Plan Mr. Fountain is a 60-year-old male senior living resident greater than [id number] smoking history last seen in pulmonary clinic May 2024 during which patient noted to have hemoptysis during an endoscopy procedure followed by bronchoscopy noted to have right lower lobe endobronchial lesion likely foreign body appeared like tooth extracted at the point of time with cultures grew E. coli and Morganella completed 14-day course of Bactrim presented to the ER with worsening respiratory chills concerning for pneumonia and pulmonary was called for further evaluation and management. CTA upon admission no pulmonary embolism. Bilateral lower lobe right greater than left patchy airspace disease not significantly changed from July 2025, significantly improved from May 2024 can well be from residual scarring especially on the left lower lobe. Afebrile, hemodynamically stable. Mild leucocytosis, improving. No significant respiratory distress on examination. Plan: Antibiotics can be weaned to Invanz to complete a total 5-day course based on his prior sensitivity and culture results as his sputum previously grew Proteus that was resistant to Bactrim. On this admission, preliminary sputum staining did not show any gram-negative rods, Will closely monitor his repeat sputum cultures, and consider weaning Abx to Bactrim based on final culture results Continue oxygen supplementation to maintain O2 saturation goal of 90% and above. Wean as tolerated to maintain O2 saturation goal of 90% and Aspiration precautions, follow-up with speech and swallow recommendations. # Thank you for involving pulmonary in this patient care. Will folow up in the pulmonary clinic 1 to 2 weeks postdischarge
--- NOTE | 2025-08-15 10:44 | EXP.DC.SUM ---
General Admission date:: 08/14/25 Discharge date: 08/15/25 HPI HPI HPI: Dean Fountain is a 60-year-old male with a medical history significant for suspected anoxic brain injury in 2019, functional paraplegic, chronic dysphagia with PEG tube dependence, former foreign body aspiration, cognitive impairment, chronic alcoholism presented from skilled nursing with a few days of shortness of breath, accessory muscle use. Found to have hypoxia this morning at his skilled nursing. Placed on oxygen as he was satting in the 80s. On arrival to the ER, patient had significant audible respiratory sounds with mild respiratory distress necessitating up to 4 L to sat in the low 90s. Workup in the ER with CT shows chronic right lower lobe pneumonia and scarring. Initiated on serial DuoNebs. Sputum sample obtained with nasotracheal suction. Flu and COVID-negative. Given his increased oxygen requirement however and exam, medicine was consulted for admission for treatment of suspected recurrent aspiration pneumonia. On my evaluation, patient has significant upper respiratory sounds and stridor concerning for poor secretion management. Opens eyes to verbal and physical stimuli. Attempted to cough when request made to cough. Unable to provide any review of systems or history. Hospital Course Hospital Course Hospital Course: Dean Fountain is a 60-year-old male with a medical history significant for suspected anoxic brain injury in 2019, functional paraplegic, chronic dysphagia with PEG tube dependence, former foreign body aspiration, cognitive impairment, chronic alcoholism presented from skilled nursing with hypoxia this morning. Concern for recurrent pneumonia. Discussed case with ER provider, request admission given increased oxygen requirement from baseline. I agreed to admit for further care. Initiated on broad-spectrum antibiotics based on previous sputum cultures. Evaluated in the morning. Patient overall doing well. Back to baseline mentation and talkative by morning. White count normalized. On 2 L oxygen. Given his significant improvement and improvement in white count along with negative inflammatory markers, will complete short course of antibiotics. Discharge back to nursing facility in stable condition. Problems addressed as follows: #aspiration pneumonia, ruled in #Chronic dysphagia with PEG tube dependence ? Per skilled nursing, patient has had shortness of breath, accessory muscle use, fevers at skilled nursing. CTA chest suggestive of recurrent versus chronic right lower lobe infiltrate. Presents with recurrent pneumonia, aspiration pneumonia in the past. Last positive sputum culture was E. coli and Morganella back in 05/2024. Has previously grown Providencia and Enterobacter. All previous cultures show resistance pattern with ESBL. Initiated on Invanz 1 g daily. Will continue for 5 days total. Will administer IM after returning back to nursing facility. Needs 3 more doses. Stable on 2 L oxygen with sats greater 90%. - History of anoxic brain injury in 2019, PEG tube dependence due to chronic dysphagia. Unfortunately puts him at high risk for aspiration. - Patient showing improvement this morning. Talkative and interactive. White count improving at 10.3. Afebrile. On 2 L oxygen. Will need to continue 2 L oxygen continuously at baseline for now. Goal sats greater 90%. Continue aspiration precautions with elevation of bed. Will continue 5 days total of antibiotics with IM ertapenem 1 g daily. Needs 3 more doses starting 08/16/2025. Pulmonology consulted to assist with care, agreeable with antibiotic regimen. #Mood disorder: Continue valproic acid 500 mg twice, Seroquel for female grams 3 times daily, melatonin 3 mg nightly, alprazolam 0.25 mg nightly #BPH: Continue home doxazosin 1 mg daily #GERD: Continue home PPI. #History of anoxic brain injury #Functional paraplegia #Debility #Cognitive impairment ? Continue supportive therapy. Complicates all aspects of his care Will resume tube feed in the morning. Continue multivitamin daily Total time spent on discharge 32 minutes in counseling, documentation, chart review, and direct care with patient. Exam Data for Last 24 hours Vital signs and Labs for Last 24 Hours: Temp Pulse Resp BP Pulse Ox O2 Del Method O2 Flow Rate 98.4 F 114 H 20 147/75 H 93 L Nasal Cannula 4 08/15/25 07:40 08/15/25 07:40 08/15/25 07:40 08/15/25 07:40 08/15/25 07:40 08/15/25 09:00 08/15/25 09:00 Laboratory Results - last 24 hr 08/14/25 12:52: Chlamy pneumoniae PCR Not detected, Adenovirus (PCR) Not detected, B. pertussis DNA (PCR) Not detected, Coronavirus OC43 (PCR) Not detected, Coronavirus HKU1 (PCR) Not detected, Coronavirus 229E (PCR) Not detected, SARS-CoV-2 (PCR) Not detected, Coronavirus NL63 (PCR) Not detected, Human Metapneumovir PCR Not detected, Influenza A (H1) PCR Not detected, Influ A (H1N1/09) PCR Not detected, Influenza A (H3) PCR Not detected, Influenza Type A (PCR) Not detected, Influenza Type B (PCR) Not detected, M. pneumoniae (PCR) Not detected, Parainfluenza 1 (PCR) Not detected, Parainfluenza 2 (PCR) Not detected, Parainfluenza 3 (PCR) Not detected, Parainfluenza 4 (PCR) Not detected, RSV (PCR) Not detected, Entero/Rhino (PCR) Not detected 08/14/25 12:53: VBG pH 7.31, VBG pCO2 76.2 H, VBG pO2 93.1 H, VBG HCO3 37.1 H, VBG Total CO2 39.4 H, VBG O2 Saturation 96.2 H, VBG Base Excess 10.7 H, VBG Lactic Acid 1.4, SARS-CoV-2 (PCR) Not detected, Influenza A Untype (PCR) Not detected, Influenza Type B (PCR) Not detected 08/14/25 14:18: ESR 1, PT 11.4, INR 1.03, APTT 25.1, Sodium 145, Potassium 5.9 H, Chloride 99, Carbon Dioxide 39 H, Anion Gap 12.9, BUN 15, Creatinine 0.70, Estimated Creat Clear 84, Estimated GFR 115, Est GFR ( Amer) 139, Glucose 117 H, Calcium 9.5, Magnesium 2.1, Total Bilirubin 0.8, AST 67 H, ALT 24, Alkaline Phosphatase 87, Total Creatine Kinase 68, Troponin I 0.02, C-Reactive Protein 3.7, Total Protein 8.4 H, Albumin 4.1, Globulin 4.3 H, Albumin/Globulin Ratio 1.0 L, Lipase 72 08/14/25 14:41: Urine Color Yellow, Urine Appearance Clear, Urine pH 7.5, Ur Specific [place] 1.010, Urine Protein Negative, Urine Glucose (UA) Negative, Urine Ketones Negative, Urine Blood Negative, Urine Nitrate Negative, Urine Bilirubin Negative, Urine Urobilinogen 0.2, Ur Leukocyte Esterase Negative, Urine RBC None, Urine WBC Occasional, Ur Squamous Epith Cells Occasional, Urine Bacteria None 08/14/25 15:32: WBC 13.4 H, RBC 5.10, Hgb 16.4, Hct 52.4 H, MCV 102.7 H, MCH 32.2 H, MCHC 31.3 L, RDW 13.4, Plt Count 277, MPV 12.4 H, Neut % (Auto) 79.6, Lymph % (Auto) 12.6, [place] % (Auto) 6.2, Eos % (Auto) 0.7, Baso % (Auto) 0.6, Neut # (Auto) 10.7 H, Lymph # (Auto) 1.7, [place] # (Auto) 0.8, Eos # (Auto) 0.1, Baso # (Auto) 0.1 08/14/25 16:41: Troponin I < 0.01 08/14/25 18:35: Troponin I < 0.01 08/15/25 05:21: WBC 10.3, RBC 4.73, Hgb 15.1, Hct 48.1, MCV 101.7 H, MCH 31.9 H, MCHC 31.4 L, RDW 13.3, Plt Count 271, MPV 11.9 H, Neut % (Auto) 78.6, Lymph % (Auto) 12.7, [place] % (Auto) 8.2, Eos % (Auto) 0.0 L, Baso % (Auto) 0.3, Neut # (Auto) 8.1 H, Lymph # (Auto) 1.3, [place] # (Auto) 0.9, Eos # (Auto) 0.0, Baso # (Auto) 0.0, Sodium 150 H, Potassium 3.8 D, Chloride 102, Carbon Dioxide 40 H, Anion Gap 11.8, BUN 16, Creatinine 0.70, Estimated Creat Clear 84, Estimated GFR 115, Est GFR ( Amer) 139, Glucose 136 H, Calcium 9.3, Magnesium 2.2, Total Bilirubin 0.2, AST 36 D, ALT 23, Alkaline Phosphatase 93, Total Protein 7.6, Albumin 3.7, Globulin 3.9 H, Albumin/Globulin Ratio 0.9 L I & O for Last 24 hours: Intake & Output 08/12/25 08/13/25 08/14/25 08/15/25 23:59 23:59 23:59 23:59 Intake Total 400 / 400 Output Total 0 / 0 0 / 0 Balance 400 / 400 0 / 0 Weight 78.188 kg 76.793 kg Microbiology Reports for the Last 24 Hours: Microbiology 08/14/25 14:20 Sputum - Nasotracheal Suction Gram Stain - Final Constitutional Constitutional: no acute distress, thin, chronically ill appearing and cooperative Comments: talkative on exam *Routine HEENT Exam Head: Present normocephalic Eye: Present conjunctivae pink ENT: Present mucous membranes moist Comments: seborrheic dermatitis on face *Routine Neck Exam Neck: Absent JVD or lymphadenopathy *Routine Respiratory Exam Respiratory: Present rhonchi (clear with cough) and normal respiratory effort; Absent prolonged expiratory phase, respiratory distress, wheezes, crackles or diminished air movement *Routine Cardiovascular Exam Cardiovascular: Present RRR *Routine Abdominal Exam Abdominal: Present soft and normoactive bowel sounds Comments: G-tube in place *Routine Rectal Exam Patient deferred: visual exam *Routine Exam Patient deferred: penile exam *Routine Extremities Exam Extremities: Absent edema Comments: thin extremities *Routine Skin Exam Skin: Present intact; Absent rash Comments: Seborrheic dermatitis on face *Routine Neurological Exam Neurological: Present alert and moving all extremities; Absent oriented X3 Comments: baseline mentation, talkative on exam. Routine Psychiatric Exam Psychiatric: Present unable to assess Results Data Completed and Pending Labs on day of discharge: Labs from last 24 hours 08/15/25 08/14/25 08/14/25 05:21 18:35 16:41 WBC 10.3 RBC 4.73 Hgb 15.1 Hct 48.1 MCV 101.7 H MCH 31.9 H MCHC 31.4 L RDW 13.3 Plt Count 271 MPV 11.9 H Neut % (Auto) 78.6 Lymph % (Auto) 12.7 [place] % (Auto) 8.2 Eos % (Auto) 0.0 L Baso % (Auto) 0.3 Neut # (Auto) 8.1 H Lymph # (Auto) 1.3 [place] # (Auto) 0.9 Eos # (Auto) 0.0 Baso # (Auto) 0.0 ESR PT INR APTT VBG pH VBG pCO2 VBG pO2 VBG HCO3 VBG Total CO2 VBG O2 Saturation VBG Base Excess VBG Lactic Acid Sodium 150 H Potassium 3.8 D Chloride 102 Carbon Dioxide 40 H Anion Gap 11.8 BUN 16 Creatinine 0.70 Estimated Creat Clear 84 Estimated GFR 115 Est GFR ( Amer) 139 Glucose 136 H Calcium 9.3 Magnesium 2.2 Total Bilirubin 0.2 AST 36 D ALT 23 Alkaline Phosphatase 93 Total Creatine Kinase Troponin I < 0.01 < 0.01 C-Reactive Protein Total Protein 7.6 Albumin 3.7 Globulin 3.9 H Albumin/Globulin Ratio 0.9 L Lipase Urine Color Urine Appearance Urine pH Ur Specific [place] Urine Protein Urine Glucose (UA) Urine Ketones Urine Blood Urine Nitrate Urine Bilirubin Urine Urobilinogen Ur Leukocyte Esterase Urine RBC Urine WBC Ur Squamous Epith Cells Urine Bacteria Chlamy pneumoniae PCR Adenovirus (PCR) B. pertussis DNA (PCR) Coronavirus OC43 (PCR) Coronavirus HKU1 (PCR) Coronavirus 229E (PCR) SARS-CoV-2 (PCR) Coronavirus NL63 (PCR) Human Metapneumovir PCR Influenza A (H1) PCR Influ A (H1N1/09) PCR Influenza A (H3) PCR Influenza Type A (PCR) Influenza A Untype (PCR) Influenza Type B (PCR) M. pneumoniae (PCR) Parainfluenza 1 (PCR) Parainfluenza 2 (PCR) Parainfluenza 3 (PCR) Parainfluenza 4 (PCR) RSV (PCR) Entero/Rhino (PCR) 08/14/25 08/14/25 08/14/25 15:32 14:41 14:18 WBC 13.4 H RBC 5.10 Hgb 16.4 Hct 52.4 H MCV 102.7 H MCH 32.2 H MCHC 31.3 L RDW 13.4 Plt Count 277 MPV 12.4 H Neut % (Auto) 79.6 Lymph % (Auto) 12.6 [place] % (Auto) 6.2 Eos % (Auto) 0.7 Baso % (Auto) 0.6 Neut # (Auto) 10.7 H Lymph # (Auto) 1.7 [place] # (Auto) 0.8 Eos # (Auto) 0.1 Baso # (Auto) 0.1 ESR 1 PT 11.4 INR 1.03 APTT 25.1 VBG pH VBG pCO2 VBG pO2 VBG HCO3 VBG Total CO2 VBG O2 Saturation VBG Base Excess VBG Lactic Acid Sodium 145 Potassium 5.9 H Chloride 99 Carbon Dioxide 39 H Anion Gap 12.9 BUN 15 Creatinine 0.70 Estimated Creat Clear 84 Estimated GFR 115 Est GFR ( Amer) 139 Glucose 117 H Calcium 9.5 Magnesium 2.1 Total Bilirubin 0.8 AST 67 H ALT 24 Alkaline Phosphatase 87 Total Creatine Kinase 68 Troponin I 0.02 C-Reactive Protein 3.7 Total Protein 8.4 H Albumin 4.1 Globulin 4.3 H Albumin/Globulin Ratio 1.0 L Lipase 72 Urine Color Yellow Urine Appearance Clear Urine pH 7.5 Ur Specific [place] 1.010 Urine Protein Negative Urine Glucose (UA) Negative Urine Ketones Negative Urine Blood Negative Urine Nitrate Negative Urine Bilirubin Negative Urine Urobilinogen 0.2 Ur Leukocyte Esterase Negative Urine RBC None Urine WBC Occasional Ur Squamous Epith Cells Occasional Urine Bacteria None Chlamy pneumoniae PCR Adenovirus (PCR) B. pertussis DNA (PCR) Coronavirus OC43 (PCR) Coronavirus HKU1 (PCR) Coronavirus 229E (PCR) SARS-CoV-2 (PCR) Coronavirus NL63 (PCR) Human Metapneumovir PCR Influenza A (H1) PCR Influ A (H1N1/) PCR Influenza A (H3) PCR Influenza Type A (PCR) Influenza A Untype (PCR) Influenza Type B (PCR) M. pneumoniae (PCR) Parainfluenza 1 (PCR) Parainfluenza 2 (PCR) Parainfluenza 3 (PCR) Parainfluenza 4 (PCR) RSV (PCR) Entero/Rhino (PCR) 08/14/25 08/14/25 12:53 12:52 WBC RBC Hgb Hct MCV MCH MCHC RDW Plt Count MPV Neut % (Auto) Lymph % (Auto) [place] % (Auto) Eos % (Auto) Baso % (Auto) Neut # (Auto) Lymph # (Auto) [place] # (Auto) Eos # (Auto) Baso # (Auto) ESR PT INR APTT VBG pH 7.31 VBG pCO2 76.2 H VBG pO2 93.1 H VBG HCO3 37.1 H VBG Total CO2 39.4 H VBG O2 Saturation 96.2 H VBG Base Excess 10.7 H VBG Lactic Acid 1.4 Sodium Potassium Chloride Carbon Dioxide Anion Gap BUN Creatinine Estimated Creat Clear Estimated GFR Est GFR ( Amer) Glucose Calcium Magnesium Total Bilirubin AST ALT Alkaline Phosphatase Total Creatine Kinase Troponin I C-Reactive Protein Total Protein Albumin Globulin Albumin/Globulin Ratio Lipase Urine Color Urine Appearance Urine pH Ur Specific [place] Urine Protein Urine Glucose (UA) Urine Ketones Urine Blood Urine Nitrate Urine Bilirubin Urine Urobilinogen Ur Leukocyte Esterase Urine RBC Urine WBC Ur Squamous Epith Cells Urine Bacteria Chlamy pneumoniae PCR Not detected Adenovirus (PCR) Not detected B. pertussis DNA (PCR) Not detected Coronavirus OC43 (PCR) Not detected Coronavirus HKU1 (PCR) Not detected Coronavirus 229E (PCR) Not detected SARS-CoV-2 (PCR) Not detected Not detected Coronavirus NL63 (PCR) Not detected Human Metapneumovir PCR Not detected Influenza A (H1) PCR Not detected Influ A (H1N1/09) PCR Not detected Influenza A (H3) PCR Not detected Influenza Type A (PCR) Not detected Influenza A Untype (PCR) Not detected Influenza Type B (PCR) Not detected Not detected M. pneumoniae (PCR) Not detected Parainfluenza 1 (PCR) Not detected Parainfluenza 2 (PCR) Not detected Parainfluenza 3 (PCR) Not detected Parainfluenza 4 (PCR) Not detected RSV (PCR) Not detected Entero/Rhino (PCR) Not detected DS: Diagnosis Discharge Diagnosis (1) Pneumonia: Status: Acute Code(s): J18.9 - Pneumonia, unspecified organism Qualifiers: Aspiration pneumonia type: due to gastric secretions Laterality: right Lung location: lower lobe of lung Pneumonia type: aspiration pneumonia Qualified Code(s): J69.0 - Pneumonitis due to inhalation of food and vomit Problem details: suspected ESBL gram negative bacteria (2) Wernicke-Korsakoff syndrome (alcoholic): Status: Chronic Code(s): F10.96 - Alcohol use, unspecified with alcohol-induced persisting amnestic disorder (3) Severe protein-calorie malnutrition: Status: Chronic Code(s): E43 - Unspecified severe protein-calorie malnutrition (4) Gastrojejunostomy tube status: Status: Chronic Code(s): Z93.4 - Other artificial openings of gastrointestinal tract status (5) Seizure disorder: Status: Chronic Code(s): G40.909 - Epilepsy, unspecified, not intractable, without status epilepticus (6) Encephalopathy chronic: Status: Chronic Code(s): G93.49 - Other encephalopathy (7) Flaccid paraplegia: Status: Acute Code(s): G82.20 - Paraplegia, unspecified Meds Home Medications and Allergies Home Medications ?Medication ?Instructions ?Recorded ?Confirmed ?Type aspirin 81 mg chewable tablet 81 mg feeding tube DAILY 12/24/22 08/14/25 History folic acid 0.8 mg capsule 0.8 mg feeding tube DAILY 12/24/22 08/14/25 History metoclopramide HCl 5 mg tablet 5 mg feeding tube BID 12/24/22 08/14/25 History potassium chloride 20 mEq/15 mL 20 meq feeding tube BID 12/24/22 08/14/25 History oral liquid quetiapine 100 mg tablet 50 mg feeding tube TID 12/24/22 08/14/25 History thiamine HCl (vitamin B1) 100 mg 100 mg feeding tube DAILY 12/24/22 08/14/25 History tablet valproic acid (as sodium salt) 250 500 mg feeding tube BID 12/24/22 08/14/25 History mg/5 mL oral solution Lactobacillus acidophilus 1 1,000 mmu cells PO DAILY 12/25/22 08/14/25 History billion cell capsule melatonin 3 mg tablet 3 mg PO HS 12/25/22 08/14/25 History polyethylene glycol 3350 17 17 g PO DAILY 12/25/22 08/14/25 History gram/dose oral powder (Miralax) doxazosin 1 mg tablet 1 mg feeding tube DAILY 05/16/24 08/14/25 History alprazolam 0.25 mg tablet 0.25 mg feeding tube HS 07/15/25 08/14/25 History cholecalciferol (vitamin D3) 50 100 mcg PO DAILY 07/15/25 08/14/25 History mcg (2,000 unit) tablet menthol 0.44 %-zinc oxide 20.6 % 1 applic topical Q48H 07/15/25 08/15/25 History topical ointment (Calmoseptine) pantoprazole 40 mg granules 40 mg PO DAILY 07/15/25 08/14/25 History delayed-release for susp in packet propylene glycol 0.6 % eye drops 1 drp ophthalmic (eye) QID 07/15/25 08/14/25 History (Systane Balance) selenium sulfide 1 % shampoo 1 applic topical MOFR 07/15/25 08/14/25 History (Selsun Blue) Ertapenem Sodium [Invanz 1gm Vial] 100 mls/hr IV 1700 08/15/25 Rx 1 gm acetaminophen 500 mg tablet 500 mg PO Q6HP PRN Mild Pain 08/15/25 08/15/25 History (Scale Score 1-4) ipratropium 0.5 mg-albuterol 3 mg 3 ml inhalation QID 30 days #180 mL 08/15/25 Rx (2.5 mg base)/3 mL nebulization soln New Prescriptions to Start Prescriptions: ipratropium-albuterol Ravi Quintanilla Ertapenem Sodium [Invanz 1gm Vial] 1 gm 0.9 % Sodium Chloride [Sod Chlor 0.9% 50mL bag] 50 ml 100 mls/hr IV 1700 Allergies Allergy/AdvReac Type Severity Reaction Status Date / Time No Known Allergies Allergy Verified 05/28/24 10:34 Discharge Plan Disposition Patient Disposition: [facility] Condition: Fair Discharge Order Discharge Orders: Discharge Order (Routine); Ordered 08/15/25 Ordered By: Ravi Quintanilla Follow up Plan Prescriptions/Medication Reconciliation: New Ertapenem Sodium [Invanz 1gm Vial] 1 GM 0.9 % Sodium Chloride [Sod Chlor 0.9% 50mL bag] 50 ML 100 mls/hr IV 1700 Ordered By: Ravi Quintanilla MD Last Taken: 08/14/25 18:04 100 mls/hr Continued doxazosin 1 mg tablet 1 mg feeding tube DAILY thiamine HCl (vitamin B1) 100 mg Tablet 100 mg feeding tube DAILY quetiapine 100 mg tablet 50 mg feeding tube TID potassium chloride 20 mEq/15 mL liquid 20 meq feeding tube BID metoclopramide HCl 5 mg tablet 5 mg feeding tube BID valproic acid (as sodium salt) 250 mg/5 mL solution 500 mg feeding tube BID aspirin 81 mg Tablet,Chewable 81 mg feeding tube DAILY folic acid 0.8 mg Capsule 0.8 mg feeding tube DAILY melatonin 3 mg Tablet 3 mg PO HS Lactobacillus acidophilus 1 billion cell Capsule 1,000 mmu cells PO DAILY polyethylene glycol 3350 [Miralax] 17 gram/dose Powder 17 g PO DAILY cholecalciferol (vitamin D3) 50 mcg (2,000 unit) Tablet 100 mcg PO DAILY pantoprazole [address] For Susp In Packet 40 mg PO DAILY alprazolam 0.25 mg tablet 0.25 mg feeding tube HS menthol-zinc oxide [Calmoseptine] 0.44-20.6 % Ointment 1 applic TOPICAL Q48H Systane Balance 0.6 % Drops 1 drp OPHTHALMIC (EYE) QID [place]els[place] Blue 1 % Shampoo 1 applic TOPICAL MOFR Rx Instructions: massage into affected area; leave on for 10 mins ; rinse off thoroughly acetaminophen 500 mg Tablet 500 mg PO Q6HP PRN (Reason: Mild Pain (Scale Score 1-4)) Changed ipratropium-albuterol 0.5 mg-3 mg(2.5 mg base)/3 mL solution for nebulization 3 ml INHALATION QID 30 Days Qty: 180 0RF Problem Reconciliation Problems Reviewed?: Yes Patient Discharge Instructions ACTIVITY: Continue current activity DIET: continue same diet Patient Instructions: DI for Pneumonia in Adults, DI for Sepsis in Adults, DI for Respiratory Failure, Stop Light Pneumonia, Stop Light COPD, Stop Light Infection Print Language: [place] Providers Primary Care Provider: Provider,Referral Admit Provider: Ravi Quintanilla Attending Provider: Ravi Quintanilla
[2025-08-15 11:54] VITALS: BP 145/74; PULSE 110; RESP 18; TEMP 36.7; O2SAT 94
[2025-08-15 12:55] VITALS: BMI 22.9
[2025-08-15 16:00] VITALS: BP 103/87; PULSE 115; RESP 20; TEMP 36.5; O2SAT 94
[2025-08-15] MEDS: IPRATROPIUM/ALBUTEROL 3 ML NEB IH (18:28)
[2025-08-15 18:29] VITALS: PULSE 101; PULSE 106; O2SAT 92
[2025-08-15 20:00] VITALS: BP 130/77; PULSE 110; RESP 14; TEMP 36.4; O2SAT 90
--- NOTE | 2025-08-15 20:44 | PC.NURSE ---
Patient left floor with EMS at 20:43.
--- NOTE | 2025-08-16 08:26 | PC.NURSE ---
Culture results forwarded to hospitalist.
== END 2025-08-15 20:45 ==
LOC: ER 15:54 → 2ND 16:16
PROVIDERS: Nurse Practitioner; Admitting Provider Internal Medicine Adolescent Medicine; Emergency Provider Emergency Medicine; Visit Provider Internal Medicine Adolescent Medicine
DX: J69.0 Pneumonitis due to inhalation of food and vomit (principal); F10.96 Alcohol use, unspecified with alcohol-induced persisting amnestic disorder; E43 Unspecified severe protein-calorie malnutrition; Z93.4 Other artificial openings of gastrointestinal tract status; G40.909 Epilepsy, unspecified, not intractable, without status epilepticus; G93.49 Other encephalopathy; G82.20 Paraplegia, unspecified; J18.9 Pneumonia, unspecified organism; J96.91 Respiratory failure, unspecified with hypoxia; J44.9 Chronic obstructive pulmonary disease, unspecified; F03.94 Unspecified dementia, unspecified severity, with anxiety; K21.9 Gastro-esophageal reflux disease without esophagitis; I11.0 Hypertensive heart disease with heart failure; I50.9 Heart failure, unspecified; Z87.891 Personal history of nicotine dependence; Z79.899 Other long term (current) drug therapy; Z79.82 Long term (current) use of aspirin; N40.0 Benign prostatic hyperplasia without lower urinary tract symptoms; R00.0 Tachycardia, unspecified; Z68.22 Body mass index [BMI] 22.0-22.9, adult
CPT/HCPCS: 0223U; 36415; 71275; 80053; 81001; 82550; 82803; 83690; 83735; 84484; 85025; 85610; 85651; 85730; 86140; 87040; 87070; 87077; 87086; 87186; 87205; 87636; 93005; 94640; 94761; 97162; 97166; 99285; G0378; J0295; J0456; J1335; J1650; J2919; J7050; Q9967